=== PATIENT | female | born 1965 | race American Indian/Alaskan Native ===

== ENCOUNTER → 2024-11-30 | Outpatient (CLI) | payer BC, SELFPAY ==
[2024-11-30 14:14] LABS: Basophils # (Auto) 0.1 Thou/mm3 (0.0-0.2); Basophils % (Auto) 0 % (0-2.5); Eosinophils % (Auto) 0 % (0-10); Hematocrit 33.3 % (36.0-46.0); Hemoglobin 11.3 g/dL (12.0-16.0); Immature Granulocytes % (Auto) 1 % (0-0); Immature Granulocytes Auto 0.11 Thou/mm3 (0.00-0.00); Lymphocytes % (Auto) 4 % (10-50); Mean Corpuscular HGB Conc 33.9 g/dl (31.0-37.0); Mean Corpuscular Hemoglobin 29.1 pg (25.0-35.0); Mean Corpuscular Volume 86 fL (80-100); Monocytes # (Auto) 1.5 Thou/mm3 (0.0-0.8); Monocytes % (Auto) 7 % (0-12); Neutrophils # (Auto) 20.4 Thou/mm3 (1.8-7.7); Neutrophils % (Auto) 88 % (37-80); Nucleated Red Blood Cell % 0 /100 WBC (0); Platelet Count 458 Thou/mm3 (140-440); RDW Standard Deviation 41.7 fL (36.4-46.3); Red Blood Count 3.88 Miln/mm3 (4.00-5.20); White Blood Count 23.1 Thou/mm3 (3.6-11.0)
[2024-11-30 14:51] LABS: Alanine Aminotransferase < 7 U/L (10-49); Albumin/Globulin Ratio 1.6 (1.2-2.2); Alkaline Phosphatase 106 U/L (46-116); Anion Gap 11 (7-16); Aspartate Amino Transferase 14 U/L (0-34); BUN/Creatinine Ratio 11 Ratio (12-20); Bilirubin,Total 0.7 mg/dL (0.3-1.2); Blood Urea Nitrogen 9 mg/dL (9-23); C-Reactive Protein 23.8 mg/dL (0.0-0.9); Calcium 8.9 mg/dL (8.3-10.6); Calcium (Corrected) 8.9 mg/dL (8.5-10.1); Carbon Dioxide 26.5 mMol/L (20.0-31.0); Chloride 93 mMol/L (98-107); Creatinine (Component) 0.8 mg/dL (0.6-1.3); Globulin 2.5 gm/dL (2.3-3.5); Glucose 156 mg/dL (74-106); Osmolality,Calculated 262 (275-295); Potassium 3.3 mMol/L (3.4-5.1); Sodium 130 mMol/L (136-145); Total Protein 6.5 gm/dL (5.7-8.2); eGFR > 60 See Note
== END | disposition home or self-care (01) ==
LOC: COPL 12:58
PROVIDERS: PCP Physician Assistant; Referring Provider Specialist; Visit Provider Specialist
DX: K80.80 Other cholelithiasis without obstruction (principal)
CPT/HCPCS: 36415; 80053; 85025; 86140

== ENCOUNTER → 2024-12-11 | Outpatient (CLI) | payer BC, SELFPAY ==
[2024-12-12 18:22] LABS: Clostridium Difficile PCR Negative (Negative)
== END | disposition home or self-care (01) ==
LOC: COPL 14:03
PROVIDERS: PCP Nurse Practitioner Family; Referring Provider Specialist; Visit Provider Specialist
DX: R19.7 Diarrhea, unspecified (principal)
CPT/HCPCS: 87015; 87045; 87046; 87493; 87899

== ENCOUNTER → 2024-12-12 | Outpatient (CLI) | payer BC, SELFPAY | END | disposition home or self-care (01) | LOC: SLDO 10:09 | PROVIDERS: Referring Provider Specialist; Visit Provider Specialist | DX: R19.7 Diarrhea, unspecified (principal) ==

== ENCOUNTER 2024-12-17 10:32 | Inpatient (IN) | payer BC, SELFPAY ==
[2024-12-17] VITALS (9 sets, daily range): BP systolic 99–119; BP diastolic 66–74; PULSE 77–130; RESP 18–99; TEMP 35.8–36.7; O2SAT 93–99; BMI 23.0; BMI 22.8
--- NOTE | 2024-12-17 11:29 | XR_ITS ---
Examination: CT abdomen with intravenous contrast CT pelvis with intravenous contrast 2-D coronal reconstructions 2-D sagittal reconstructions Date and time of exam:December 17, 2024 1320 hrs. Comparison June 10, 2023 Indications: Sudden onset right-sided abdominal pain beginning last night, diagnosis cholelithiasis, enlarged common hepatic common bile duct, right hydronephrosis 2.6 mm distal right ureterovesical junction calculus on CT abdomen pelvis study June 10, 2023. CTDI: vol (mGy) 7.16 DLP: (mGycm) 334 Technique: Multiple axial sections of the abdomen and pelvis have been obtained. 64 slice high-resolution scanner used. 3 mm axial sections have been obtained, post intravenous injection 60 cc [id number] 2-D sagittal, coronal reconstructions obtained. Low dose protocols were performed. One or more of the following dose reduction techniques were used; automated exposure control, adjustment of the mA and/or KV according to patient size, use of iterative reconstruction technique. Findings: Again noted 10 mm pulmonary nodule lingular segment, atelectasis also in the left lower lobe Pericardial effusion measuring 7 mm Cholelithiasis contracted gallbladder Intrahepatic biliary tract dilatation Common hepatic duct 8 mm No pancreatic mass Minimal nodular thickening left adrenal gland 4 mm lower pole right renal calculus, no hydronephrosis or ureteral calculi Normal appendix Significant colonic ileus with diffuse wall thickening of the colon Retroverted uterus with 18 mm uterine fundal mass Urinary bladder intact Advanced degenerative disc disease L5-S1 with 2 mm central lumbar disc bulge Impression: 10 mm pulmonary nodule lingular segment, recommend PA lateral chest follow-up Cholelithiasis, contracted gallbladder Intrahepatic and extrahepatic biliary tract dilatation Consider MRCP follow-up to exclude common bile duct stones and/or stricture Significant colonic ileus with diffuse thickening of the colonic sainz, colitis pattern Recommend pelvic sonography to assess uterine fundal mass
--- NOTE | 2024-12-17 11:30 | PD.EDRME ---
Rapid Medical Screening Exam RME Arrival date/time: 12/17/24 10:32 59-year-old female with ulcerative colitis presents emergency department today with complaints of right lower abdominal pain patient reports she is being followed by Dr. Gamboa GI specialist Chief Complaint: Abdominal Pain Time Seen by Provider: 12/17/24 10:53 Vital signs: Vital Signs Temperature 98.0 F 12/17/24 11:25 Pulse Rate 130 H 12/17/24 11:25 Respiratory Rate 18 12/17/24 11:25 Blood Pressure 99/69 12/17/24 11:25 Pulse Oximetry (%) 97 12/17/24 11:25 Oxygen Delivery Method Room Air 12/17/24 11:25
--- NOTE | 2024-12-17 11:38 | EKG_ITS ---
[facility] Test Date: 2024-12-17 Pat Name: DARIO TOPETE Department: Room: - Gender: Female Lever Operator: : 1965 Requested By: Murtaza Gates (DAVID) Order Number: [id number] Reading MD: Murtaza Gates (PILL PACKER) Measurements Intervals [place] Rate: 101 P: 75 NJ: 149 QRS: -2 QRSD: 101 T: 79 QT: 347 QTc: 451 Interpretive Statements SINUS TACHYCARDIA INCOMPLETE RIGHT BUNDLE BRANCH BLOCK [90+ ms QRS DURATION, TERMINAL R IN V1/V2, 40+ ms S IN I/aVL/V4/V5/V6] NONSPECIFIC T-WAVE ABNORMALITY ABNORMAL RHYTHM ECG Compared to ECG 05/26/2023 15:49:28 Incomplete right bundle-branch block now present T-wave abnormality now present /store/S0/[id number]/ecg/[id number].pdf
[2024-12-17 12:04] LABS: Lactate (Lactic Acid) 1.3 mMol/L (0.4-2.0)
[2024-12-17 12:21] LABS: Basophils % (Auto) 0 % (0-2.5); Eosinophils % (Auto) 0 % (0-10); Hematocrit 29.4 % (36.0-46.0); Hemoglobin 9.6 g/dL (12.0-16.0); Immature Granulocytes % (Auto) 2 % (0-0); Immature Granulocytes Auto 0.31 Thou/mm3 (0.00-0.00); Lymphocytes % (Auto) 6 % (10-50); Mean Corpuscular HGB Conc 32.7 g/dl (31.0-37.0); Mean Corpuscular Hemoglobin 27.8 pg (25.0-35.0); Mean Corpuscular Volume 85 fL (80-100); Monocytes # (Auto) 0.6 Thou/mm3 (0.0-0.8); Monocytes % (Auto) 4 % (0-12); Neutrophils # (Auto) 14.2 Thou/mm3 (1.8-7.7); Neutrophils % (Auto) 88 % (37-80); Nucleated Red Blood Cell % 0 /100 WBC (0); Platelet Count 626 Thou/mm3 (140-440); RDW Standard Deviation 43.5 fL (36.4-46.3); Red Blood Count 3.45 Miln/mm3 (4.00-5.20); White Blood Count 16.1 Thou/mm3 (3.6-11.0)
[2024-12-17 12:34] LABS: Alanine Aminotransferase 19 U/L (10-49); Albumin, Serum 3.8 gm/dL (3.4-4.8); Albumin/Globulin Ratio 1.3 (1.2-2.2); Alkaline Phosphatase 115 U/L (46-116); Anion Gap 9 (7-16); Aspartate Amino Transferase 13 U/L (0-34); BUN/Creatinine Ratio 30 Ratio (12-20); Bilirubin,Total 0.6 mg/dL (0.3-1.2); Blood Urea Nitrogen 12 mg/dL (9-23); Calcium 9.4 mg/dL (8.3-10.6); Calcium (Corrected) 9.6 mg/dL (8.5-10.1); Carbon Dioxide 30.1 mMol/L (20.0-31.0); Chloride 85 mMol/L (98-107); Creatinine (Component) 0.4 mg/dL (0.6-1.3); Estimated Creatinine Clearance 116.8 mL/min (>60); Glucose 121 mg/dL (74-106); Lipase 21 U/L (12-53); Osmolality,Calculated 250 (275-295); Procalcitonin 0.38 ng/ml (0.0-0.49); Sodium 124 mMol/L (136-145); Total Protein 6.8 gm/dL (5.7-8.2); eGFR > 60 See Note
--- NOTE | 2024-12-17 12:36 | EDNOTE_ITS ---
ED General RME/HPI General Chief complaint: Abdominal Pain Stated complaint: RIGHT SIDED ABDOMINAL PAIN Time Seen by Provider: 12/17/24 10:53 Arrival date/time: 12/17/24 10:32 CC: Right lower quadrant abdominal pain HPI onset at 10 PM last night with recurrent diarrhea that been ongoing for months. Patient is seen for colitis by Dr. Gamboa last visit was on 14 December. Patient states she has been considerably tender in the right lower quadrant but no other complaints including nausea or vomiting chest pain shortness of breath or fever. RME / HPI RME / HPI narrative: 12/17/24 10:32 59-year-old female with ulcerative colitis presents emergency department today with complaints of right lower abdominal pain patient reports she is being followed by Dr. Gamboa GI specialist Related Data Home Medications ?Medication ?Instructions ?Recorded ?Confirmed ursodiol 250 mg tablet 250 mg PO TID ##90 02/17/17 05/26/23 Previous Rx's ?Medication ?Instructions ?Recorded azathioprine 50 mg tablet (Imuran) 50 mg PO BID #30 tabs 06/07/23 fluconazole 200 mg tablet 400 mg (2 x 200 mg) PO QDAY [place] 06/07/23 Fever #90 tabs folic acid 1 mg tablet 1 mg PO QDAY #90 tabs 06/07/23 mesalamine 500 mg capsule,extended 1,000 mg (2 x 500 mg) PO QID [facility] 06/07/23 release #30 caps prednisone 5 mg tablet 15 mg PO BID #90 tabs 06/07/23 Allergies Allergy/AdvReac Type Severity Reaction Status Date / Time ciprofloxacin [From Cipro] Allergy Intermediate Gastrointestinal Verified 12/17/24 10:35 Upset levofloxacin Allergy Intermediate Rash Verified 12/17/24 10:35 ibuprofen AdvReac Intermediate Gastrointestinal Verified 12/17/24 10:35 Upset Review of Systems Review of Systems Narrative Review of Systems: GEN: No fever, no chills, no weight loss EYES: No discharge, no visual changes, no pain HEENT: No ear pain, no congestion, no sore throat PULM: No shortness of breath, no cough, no congestion CV: No chest pain, no dyspnea on exertion, no palpitations GI: No nausea, no vomiting, no diarrhea, + pain, no constipation : No frequency, no urgency, no dysuria MUSC/SKEL: No joint pain, no back pain SKIN: No rash PSYCH: No hallucinations, no depression HEME/LYMPH: No easy bleeding or bruising tendencies NEURO: No weakness, no headache Past Medical History Past Medical History NEUROLOGIC: Negative Neurological Disorders or Seizures CARDIAC: Negative Cardiac Disorders, Hypercholesterolemia, Congestive Heart Failure or Hypertension RESPIRATORY: Negative Chronic Obstructive Pulmonary Disease (COPD), Asthma or Sleep Apnea GASTROINTESTINAL: Positive Gastrointestinal Disorders (proctitis) and Colitis; Negative Hepatitis GENITOURINARY: Positive Kidney Stones; Negative Genitourinary Disorders or Renal Disease MUSCULOSKELETAL: Positive Musculoskeletal Disorders (bulging disc) ENDOCRINE: Negative Endocrine Disorders, Diabetes Mellitus Type 1 or Diabetes Mellitus Type 2 HEMATOLOGIC: Negative Blood Disorders or Sickle Cell Disease OTHER HISTORY: Positive Chicken Pox; Negative Hospitalization, Autoimmune Disease, Down Syndrome, Developmental Delay, Shingles, Falls, Blood Transfusions, Anesthesia Reactions, MRSA, VRSA, Vancomycin-Resistant Enterococci, Human Immunodeficiency Virus (HIV), Measles, Mumps, Rubella (Portuguese Measles), Pertussis, Clostridium Difficile or Cancer Family History FAMILY HISTORY: Negative Family Psychiatric Problems, Family Respiratory Disorders, Family Cardiac Disorders, Family Gastrointestinal Problems, Family Cancer, Family Surgery or Family Anesthesia Reaction Surgical History SURGICAL: Negative Cardiac Surgery, Endocrine Surgery, Abdominal Surgery, Nephrectomy, Joint Replacement, Mastectomy or Lumpectomy Social History SMOKING STATUS: Former smoker ED Exam Narrative Physical exam: [General: In mild discomfort but not in any acute distress Head normocephalic HEENT: Within acceptable limits Neck is supple nontender Chest equal chest rise nontender to palpation Respiratory: Clear to auscultation no wheezes crackles or rubs CV: Rate rhythm is regular no murmurs rubs or clicks Abdomen is distended, exquisite tenderness to palpation in the right lower quadrant, the patient is in a position of comfort with the right knee flexed. Pain is elicited with extension of the right knee. No left lower quadrant or upper quadrant or epigastric pain with palpation. Back: No CVA tenderness no spinous process tenderness from cervical spine thoracic and lumbar spine Skin: Intact no petechiae rash induration ulceration or crepitus Extremities: Moving all extremity against resistance cap refill less than 2 seconds neurosensory intact Neuro: Awake alert oriented x3 Glascow coma 15 no focal deficits] Course Course Course Narrative: Patient's case discussed with Dr. Gamboa who will consult on the patient for admission for intractable right lower quadrant abdominal pain patient is to be on Solu-Medrol clear liquid diet and Immurine and mesalamine. Patient's case discussed with Dr. solano and resident who agreed except the patient for admission Dr. Gamboa to consult. Quality Measures none Orders Category Date Time Status CT Screening NOW Care 12/17/24 11:29 Completed EKG (ED ONLY) *Do not use* NOW Care 12/17/24 11:38 Completed Insert IV NOW Care 12/17/24 11:29 Active Consult to Gastroenterology Stat Cons 12/17/24 14:[address] abdomen pelvis w con Stat Exams 12/17/24 11:29 Completed EKG (ED Only) Stat Exams 12/17/24 11:38 Draft Blood Culture (Lab) Stat Lab 12/17/24 11:49 Received CBC Stat Lab 12/17/24 11:49 Completed Comprehensive Metabolic Panel Stat Lab 12/17/24 11:49 Completed Lactic Acid [Lactate (Lactic Acid)] Stat Lab 12/17/24 11:49 Completed Lipase Stat Lab 12/17/24 11:49 Completed Procalcitonin Stat Lab 12/17/24 11:49 Completed Sed Rate (ESR) Stat Lab 12/17/24 11:49 Completed UA, C/S IF [Urinalysis, C/S if Indicated] Stat Lab 12/17/24 13:59 Completed Dicyclomine Inj [Bentyl Inj] Med 12/17/24 14:03 Discontinued 10 mg IM X1 ONE Metoclopramide Inj [Reglan Inj] Med 12/17/24 11:29 Discontinued 10 mg IVP X1 ONE Morphine Inj Med 12/17/24 12:39 Discontinued 4 mg IVP X1 ONE POTASSIUM CHL 10 mEq IVPB [Kcl Ivpb] Med 12/17/24 15:00 Discontinued 10 meq in 100 ml IV Q1H Sodium Chloride 0.9% 1000 ml [Ns] 1,000 ml Med 12/17/24 11:29 Discontinued IV 999 mls/hr Vital Signs Vital signs: Vital Signs Temperature 98.0 F 12/17/24 11:25 Pulse Rate 130 H 12/17/24 11:25 Respiratory Rate 18 12/17/24 11:25 Blood Pressure 99/69 12/17/24 11:25 Pulse Oximetry (%) 97 12/17/24 11:25 Oxygen Delivery Method Room Air 12/17/24 11:[address] [facility] Patient data External records reviewed:: [facility] previous records Clinical information provided by:: patient Social determinants that could affect healthcare access:: none Patient has the following chronic illnesses:: Colitis How is presenting disease/condition affected by chronic disease/condition?: e xacerbated by Evaluation data The following diagnostics were reviewed and interpreted by me:: lab results and radiology exam(s) Lab and/or radiology exams considered but not ordered:: CBC shows a leukocytosis of 16.1 and H&H of 9.6 and 29.4 with platelets at 626, room reviewed per primary labs she is dropped 2 g in her hematocrit from last blood draw CMP shows sodium 124 potassium 3.0 chloride of 85 CO2 of 30.1 BUN of 12 creatinine 0.4 with a glucose of 121. Lactic 1.3 Pro-Marcelino was 0.38. Interpretation Summary: Colitis Medications Medications considered but not ordered:: None Medication administrations:: Medication Administration History Acetaminophen (Acetaminophen 325 Mg Tablet) 650 mg PO Q6H PRN PRN Reason: Fever >100.3 or pain Stop: 01/16/25 15:26 Acetaminophen (Acetaminophen 325 Mg Tablet) 650 mg PO Q6H PRN PRN Reason: PAIN SCALE 1-3 (mild Stop: 01/16/25 15:26 Hydrocodone Bitart/Acetaminophen (Hydrocodone/Apap 5/325 Tablet) 1 tab PO Q4HR PRN PRN Reason: PAIN SCALE 4-6 (Moderate Stop: 12/22/24 15:26 Last Admin: 12/17/24 20:53 Dose: 1 tab Documented By: Admin: 12/17/24 16:11 Dose: 1 tab Documented By: CRISTOBAL Azathioprine (Azathioprine 50 Mg Tablet) 50 mg PO BID [facility] Stop: 01/16/25 20:59 Last Admin: 12/17/24 20:34 Dose: 50 mg Documented By: DIANE Sodium Chloride (Ns) 1,000 mls @ 120 mls/hr IV .Q8H20M [place] Stop: 12/18/24 15:29 Last Admin: 12/17/24 16:10 Dose: 120 mls/hr Documented By: CRISTOBAL Mesalamine (Mesalamine 250 Mg Capsule.Er) 1,000 mg PO QID [place] Stop: 01/16/25 16:59 Last Admin: 12/17/24 20:35 Dose: 1,000 mg Documented By: Admin: 12/17/24 18:06 Dose: 1,000 mg Documented By: CRISTOBAL Morphine Sulfate (Morphine Sulf Inj 10 Mg/Ml Vial) 2 mg IVP Q4H PRN PRN Reason: PAIN SCALE 7-10 (Severe Stop: 12/22/24 15:26 Ondansetron HCl (Ondansetron Inj 2 Mg/Ml Inj 2 Ml) 4 mg IV Q6H PRN; Protocol PRN Reason: NAUSEA OR VOMITING Stop: 01/16/25 15:26 Pantoprazole Sodium (Pantoprazole Inj 40 Mg Vial) 40 mg IVP QDAY [place] Stop: 01/16/25 15:29 Last Admin: 12/17/24 15:58 Dose: 40 mg Documented By: CRISTOBAL Sennosides (Senna Tablet) 1 tab PO QDAY PRN; Protocol PRN Reason: constipation Stop: 01/16/25 15:26 Discontinued Medications Dicyclomine HCl (Dicyclomine Inj 10 Mg/Ml 2ml Amp) 10 mg IM X1 ONE Stop: 12/17/24 14:04 Last Admin: 12/17/24 14:25 Dose: 10 mg Documented By: CRISTOBAL Sodium Chloride (Ns) 1,000 mls @ 999 mls/hr IV .Q1H1M ONE Stop: 12/17/24 12:29 Last Infusion: 12/17/24 16:15 Dose: Infused Documented By: Admin: 12/17/24 13:14 Dose: 999 mls/hr Documented By: CRISTOBAL Potassium Chloride (Kcl Ivpb) 10 meq in 100 mls @ 100 mls/hr IV Q1H [place] Stop: 12/17/24 18:59 Last Admin: 12/17/24 20:39 Dose: 100 mls/hr Documented By: Infusion: 12/17/24 20:18 Dose: Infused Documented By: Admin: 12/17/24 19:18 Dose: 100 mls/hr Documented By: Infusion: 12/17/24 19:08 Dose: Infused Documented By: Admin: 12/17/24 18:08 Dose: 100 mls/hr Documented By: Infusion: 12/17/24 17:31 Dose: Infused Documented By: Admin: 12/17/24 16:11 Dose: 100 mls/hr Documented By: CRISTOBAL Magnesium Sulfate (Magnesium Sulfate Ivpb) 2 gm in 50 mls @ 25 mls/hr IV X1 ONE Stop: 12/17/24 20:37 Last Admin: 12/17/24 19:17 Dose: 25 mls/hr Documented By: TC Methylprednisolone Sodium Succinate (Methylprednisolone Sod Succ 40 Mg Vial) 40 mg IVP Q12H ONE Stop: 12/17/24 15:33 Last Admin: 12/17/24 15:54 Dose: 40 mg Documented By: VG Metoclopramide HCl (Metoclopramide Inj 5 Mg/Ml Vial 2 Ml) 10 mg IVP X1 ONE; Protocol Stop: 12/17/24 11:30 Last Admin: 12/17/24 13:15 Dose: 10 mg Documented By: VG Morphine Sulfate (Morphine Sulf Inj 10 Mg/Ml Vial) 4 mg IVP X1 ONE Stop: 12/17/24 12:40 Last Admin: 12/17/24 13:18 Dose: 4 mg Documented By: VG Potassium Chloride (Potassium Chloride 10% 20 Meq/15 Ml Udc) 20 meq PO X1 ONE Stop: 12/17/24 15:37 Last Admin: 12/17/24 16:11 Dose: 20 meq Documented By: VG None Consultations Consultation(s) initiated? (list below): Yes Diagnosis Differential Diagnosis ED Complaint MDM: Colitis ileus obstruction Most likely diagnosis given after review of the tests above:: Colitis Admission Indicated Admission indicated?: indicated Explain why admission is indicated or not indicated:: Further medical management Admission Request Was there a request for admission?: No Disposition Plan Disposition Plan: Admit Medical Decision Making Differential Diagnosis Differential Diagnosis: Colitis ileus obstruction Lab Data 12/17/24 11:49 12/17/24 19:43 Labs: Lab Results 12/17/24 12/17/24 12/17/24 Range/Units 10:10 11:49 13:59 WBC 16.1 H (3.6-11.0) Thou/mm3 RBC 3.45 L (4.00-5.20) Miln/mm3 Hgb 9.6 L (12.0-16.0) g/dL Hct 29.4 L (36.0-46.0) % MCV 85 (80-100) fL MCH 27.8 (25.0-35.0) pg MCHC 32.7 (31.0-37.0) g/dl RDW Std Deviation 43.5 (36.4-46.3) fL Plt Count 626 H D (140-440) Thou/mm3 Neut % (Auto) 88 H (37-80) % Lymph % (Auto) 6 L (10-50) % [place] % (Auto) 4 (0-12) % Eos % (Auto) 0 (0-10) % Baso % (Auto) 0 (0-2.5) % Neut # (Auto) 14.2 H (1.8-7.7) Thou/mm3 Lymph # (Auto) 1.0 (1.0-4.8) Thou/mm3 [place]at # (Auto) 0.6 (0.0-0.8) Thou/mm3 Eos # (Auto) 0.0 (0.0-0.5) Thou/mm3 Baso # (Auto) 0.0 (0.0-0.2) Thou/mm3 Immature Gran # (Auto) 0.31 H (0.00-0.00) Thou/mm3 Absolute Nucleated RBC 0.00 (0.00-0.00) Thou/mm3 Immature Gran % 2 H (0-0) % Nucleated RBC % 0 (0) /100 WBC ESR 68 H (0-30) mm/hr Sodium 130 L 124 L (136-145) mMol/L Potassium 3.0 L (3.4-5.1) mMol/L Chloride 85 L (98-107) mMol/L Carbon Dioxide 30.1 (20.0-31.0) mMol/L Anion Gap 9 (7-16) BUN 12 (9-23) mg/dL Creatinine 0.4 L (0.6-1.3) mg/dL Estim Creat Clear Calc 116.8 (>60) mL/min eGFR > 60 (60 - ) See Note BUN/Creatinine Ratio 30 H (12-20) Ratio Glucose 121 H (74-106) mg/dL Calculated Osmolality 250 L (275-295) Lactic Acid 1.3 (0.4-2.0) mMol/L Calcium 9.4 (8.3-10.6) mg/dL Corrected Calcium 9.6 (8.5-10.1) mg/dL Magnesium 1.9 (1.6-2.6) mg/dL Total Bilirubin 0.6 (0.3-1.2) mg/dL AST 13 (0-34) U/L ALT 19 (10-49) U/L Alkaline Phosphatase 115 (46-116) U/L Total Protein 6.8 (5.7-8.2) gm/dL Albumin 3.8 (3.4-4.8) gm/dL Globulin 3.0 (2.3-3.5) gm/dL Albumin/Globulin Ratio 1.3 (1.2-2.2) Lipase 21 (12-53) U/L Procalcitonin 0.38 (0.0-0.49) ng/ml Ur Collection Type Clean Catch Urine Color Lt-Yellow (Lt Yel-Yel) Urine Clarity Clear (Clear/Hazy) Urine pH 7.0 (5.0-7.0) Ur Specific [place] 1.027 (1.001-1.035) Urine Protein Negative (Neg - Trace) Urine Glucose (UA) Negative (Negative) Urine Ketones 1+ A (Negative) Urine Blood Negative (Negative) Urine Nitrite Negative (Negative) Urine Bilirubin Negative (Negative) Urine Urobilinogen (Auto) Negative (0.0-1.0) mg/dL Ur Leukocyte Esterase Negative (Negative) Urine RBC 1 (0-3) /hpf Urine WBC < 1 (0-5) /hpf Ur Squamous Epith Cells 0 (0-5) /hpf Urine Bacteria None (None) Ur Culture Indicated? Not Indicated Blood Type O Positive Antibody Screen NEGATIVE Blood Bank Wristband ID Yes Discharge Plan Plan Patient Disposition: Admit Acute Care w/in Hospital Patient condition on transfer: Stable Problem List Clinical Impression: Abdominal pain, right lower quadrant, Ileus, Hyponatremia, Hypokalemia PA/HEAD OF HISTORY Supervising Physician PA/HEAD OF HISTORY Supervising Physician: Justo Morris ENP
[2024-12-17] MEDS: SODIUM CHLORIDE 0.9% 1000 ML 1,000 ML 999 ML IV (13:14)
[2024-12-17] MEDS: METOCLOPRAMIDE INJ 5 MG/ML VIAL 2 ML 10 MG IVP (13:15)
[2024-12-17] MEDS: MORPHINE SULF INJ 10 MG/ML VIAL 4 MG IVP (13:18)
[2024-12-17 14:04] LABS: Collection Type, Urine Clean Catch; Squamous Epithelial Cell,Urine 0 /hpf (0-5)
[2024-12-17 14:14] LABS: Bilirubin,Urine Negative (Negative); Blood,Urine Negative (Negative); Clarity,Urine Clear (Clear/Hazy); Color,Urine Lt-Yellow (Lt Yel-Yel); Culture Indicated,Urine Not Indicated; Glucose, Urine Negative (Negative); Ketones,Urine 1+ (Negative); Leukocyte Esterase,Urine Negative (Negative); Nitrite,Urine Negative (Negative); Protein,Urine Negative (Neg - Trace); RBC,Urine 1 /hpf (0-3); Specific Gravity,Urine 1.027 (1.001-1.035); Urobilinogen,Urine Negative mg/dL (0.0-1.0); WBC,Urine < 1 /hpf (0-5)
[2024-12-17] MEDS: DICYCLOMINE INJ 10 MG/ML 2ML AMP IM (14:25)
--- NOTE | 2024-12-17 15:37 | ESHP_ITS ---
Documentation for date of: 12/17/24 HPI History of Present Illness Chief complaint: Right lower quadrant pain, diarrhea History of present illness: This patient is a 59-year-old female with past medical history of IBD/ulcerative colitis on mesalamine and steroid therapy presented to the ED on 12/17/2024 with chief complaint of right lower quadrant intractable pain and diarrhea from last 1 day. She reported that she stopped taking her IBD therapy for at least 5 months and restarted her medications on November 30, [address] Gamboa as outpatient and possible reason for her discontinuation was that she felt that she is getting better and she should stop her medications. She reported that her pain is worse today. A week ago she noticed on bloody diarrhea and denied any blood in the stool today however reported to had 4 episodes of watery stools. She was complaining of excruciating pain on examination. She was not feeling nauseous however reported to have vomiting a few days ago. Patient reported to had appetite loss from a week and reported to have decreased p.o. intake including water intake. Denied any chest pain, fever/chills, shortness of breath, burning/dysuria. Her sister was present at the bedside and concerns were addressed. In the ED, patient was hypotensive tachycardic breathing normally and afebrile. She was saturating well on room air. Labs were significant for leukocytosis, normocytic anemia, thrombocytosis. CHEM panel was significant for hypoosmolar hyponatremia sodium 124, hypokalemia 3.0 and hypochloremia 85. Kidney functions were stable BUN 12 and creatinine 0.4. Blood glucose 121. Lactic acid was unremarkable. Lipase was negative. Procalcitonin negative. UA showed mild ketones. Imaging: CT abdomen pelvis was significant for a 10 mm pulmonary nodule lingular segment atelectasis in the left lobe pericardial effusion 7 mm cholelithiasis contracted gallbladder intrahepatic biliary tract dilation common hepatic duct 8 mm nodular thickening left adrenal gland 4 mm lower pole right renal calculus significant colonic ileus with diffuse wall thickening of the colon advanced degenerative disc disease L5-S1. EKG showed sinus tachycardia with QTc 451. Patient is admitted for further workup and management of flare of ulcerative colitis and hyponatremia. Review of Systems Review of Systems Systems Reviewed: All systems reviewed, normal except as documented Past Medical History Past Medical History NEUROLOGIC: Negative Neurological Disorders or Seizures CARDIAC: Negative Cardiac Disorders, Hypercholesterolemia, Congestive Heart Failure or Hypertension RESPIRATORY: Negative Chronic Obstructive Pulmonary Disease (COPD), Asthma or Sleep Apnea GASTROINTESTINAL: Positive Gastrointestinal Disorders (proctitis) and Colitis; Negative Hepatitis GENITOURINARY: Positive Kidney Stones; Negative Genitourinary Disorders or Renal Disease MUSCULOSKELETAL: Positive Musculoskeletal Disorders (bulging disc) ENDOCRINE: Negative Endocrine Disorders, Diabetes Mellitus Type 1 or Diabetes Mellitus Type 2 HEMATOLOGIC: Negative Blood Disorders or Sickle Cell Disease OTHER HISTORY: Positive Chicken Pox; Negative Hospitalization, Autoimmune Disease, Down Syndrome, Developmental Delay, Shingles, Falls, Blood Transfusions, Anesthesia Reactions, MRSA, VRSA, Vancomycin-Resistant Enterococci, Human Immunodeficiency Virus (HIV), Measles, Mumps, Rubella (Irish Measles), Pertussis, Clostridium Difficile or Cancer Family History FAMILY HISTORY: Negative Family Psychiatric Problems, Family Respiratory Disorders, Family Cardiac Disorders, Family Gastrointestinal Problems, Family Cancer, Family Surgery or Family Anesthesia Reaction Surgical History SURGICAL: Negative Cardiac Surgery, Endocrine Surgery, Abdominal Surgery, Nephrectomy, Joint Replacement, Mastectomy or Lumpectomy Social History SMOKING STATUS: Former smoker Exam Vital Signs Temp Pulse Resp BP Pulse Ox O2 Del Method 98.1 F 110 H 18 119/74 99 Room Air 12/17/24 14:45 12/17/24 14:45 12/17/24 14:45 12/17/24 14:45 12/17/24 14:45 12/17/24 14:45 Narrative Exam Gen: AAOx3, lean female in mild distress due to abdominal pain. Saturating well on room air. HEENT: NCAT, MATT, EOMI, dry mucous membrane, no JVD CVS: Normal S1, S2. Sinus tachycardia with regular rhythm. No MRG Resp: CTAB, moving air well. No crackles or wheezes are heard. Abd: Soft, right lower quadrant tenderness without distention. Active bowel sounds. 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 No focal deficits noted. Psych: Appropriate mood and affect Results: Labs 12/17/24 11:49 12/17/24 11:49 Labs: Short CBC 12/17/24 Range/Units 11:49 WBC 16.1 H (3.6-11.0) Thou/mm3 Hgb 9.6 L (12.0-16.0) g/dL Hct 29.4 L (36.0-46.0) % Plt Count 626 H D (140-440) Thou/mm3 BMP 12/17/24 11:49 Sodium 124 L Potassium 3.0 L Chloride 85 L Carbon Dioxide 30.1 BUN 12 Creatinine 0.4 L Glucose 121 H Calcium 9.4 Liver Function 12/17/24 Range/Units 11:49 Total Bilirubin 0.6 (0.3-1.2) mg/dL AST 13 (0-34) U/L ALT 19 (10-49) U/L Alkaline Phosphatase 115 (46-116) U/L Albumin 3.8 (3.4-4.8) gm/dL Urine 12/17/24 Range/Units 13:59 Urine Color Lt-Yellow (Lt Yel-Yel) Urine Clarity Clear (Clear/Hazy) Urine pH 7.0 (5.0-7.0) Ur Specific [place] 1.027 (1.001-1.035) Urine Protein Negative (Neg - Trace) Urine Glucose (UA) Negative (Negative) Quality Measures Quality Measures VTE prophylaxis (SCDs) Medications Home Medications and Allergies Home Medications ?Medication ?Instructions ?Recorded ?Confirmed ?Type ursodiol 250 mg tablet 250 mg PO TID ##90 02/17/17 05/26/23 History Allergies Allergy/AdvReac Type Severity Reaction Status Date / Time ciprofloxacin [From Cipro] Allergy Intermediate Gastrointestinal Verified 12/17/24 10:35 Upset levofloxacin Allergy Intermediate Rash Verified 12/17/24 10:35 ibuprofen AdvReac Intermediate Gastrointestinal Verified 12/17/24 10:35 Upset Visit Medications Acetaminophen (Acetaminophen 325 Mg Tablet) 650 mg PO Q6H PRN PRN Reason: Fever >100.3 or pain Stop: 01/16/25 15:26 Acetaminophen (Acetaminophen 325 Mg Tablet) 650 mg PO Q6H PRN PRN Reason: PAIN SCALE 1-3 (mild Stop: 01/16/25 15:26 Hydrocodone Bitart/Acetaminophen (Hydrocodone/Apap 5/325 Tablet) 1 tab PO Q4HR PRN PRN Reason: PAIN SCALE 4-6 (Moderate Stop: 12/22/24 15:26 Azathioprine (Azathioprine 50 Mg Tablet) 50 mg PO BID [place] Stop: 01/16/25 20:59 Potassium Chloride (Kcl Ivpb) 10 meq in 100 mls @ 100 mls/hr IV Q1H [place] Stop: 12/17/24 18:59 Sodium Chloride (Ns) 1,000 mls @ 120 mls/hr IV .Q8H20M [facility], [facility]1983 Stop: 12/18/24 15:29 Mesalamine (Mesalamine 250 Mg Capsule.Er) 1,000 mg PO QID [facility], [facility]1983 Stop: 01/16/25 16:59 Morphine Sulfate (Morphine Sulf Inj 10 Mg/Ml Vial) 2 mg IVP Q4H PRN PRN Reason: PAIN SCALE 7-10 (Severe Stop: 12/22/24 15:26 Ondansetron HCl (Ondansetron Inj 2 Mg/Ml Inj 2 Ml) 4 mg IV Q6H PRN; Protocol PRN Reason: NAUSEA OR VOMITING Stop: 01/16/25 15:26 Pantoprazole Sodium (Pantoprazole Inj 40 Mg Vial) 40 mg IVP QDAY [facility] Stop: 01/16/25 15:29 Potassium Chloride (Potassium Chloride 10% 20 Meq/15 Ml Udc) 20 meq PO X1 ONE Stop: 12/17/24 15:37 Sennosides (Senna Tablet) 1 tab PO QDAY PRN; Protocol PRN Reason: constipation Stop: 01/16/25 15:26 Discontinued Medications Dicyclomine HCl (Dicyclomine Inj 10 Mg/Ml 2ml Amp) 10 mg IM X1 ONE Stop: 12/17/24 14:04 Last Admin: 12/17/24 14:25 Dose: 10 mg Sodium Chloride (Ns) 1,000 mls @ 999 mls/hr IV .Q1H1M ONE Stop: 12/17/24 12:29 Last Admin: 12/17/24 13:14 Dose: 999 mls/hr Methylprednisolone Sodium Succinate (Methylprednisolone Sod Succ 40 Mg Vial) 40 mg IVP Q12H ONE Stop: 12/17/24 15:33 Metoclopramide HCl (Metoclopramide Inj 5 Mg/Ml Vial 2 Ml) 10 mg IVP X1 ONE; Protocol Stop: 12/17/24 11:30 Last Admin: 12/17/24 13:15 Dose: 10 mg Morphine Sulfate (Morphine Sulf Inj 10 Mg/Ml Vial) 4 mg IVP X1 ONE Stop: 12/17/24 12:40 Last Admin: 12/17/24 13:18 Dose: 4 mg Assessment & Plan Plan This patient is a 59-year-old female with past medical history of IBD/ulcerative colitis on mesalamine and steroid therapy presented to the ED on 12/17/2024 with chief complaint of right lower quadrant intractable pain and diarrhea from last 1 day. Patient is admitted for further workup and management of flare of ulcerative colitis and hyponatremia. #Inflammatory bowel disease #Ulcerative colitis, flare #Intractable right lower quadrant pain -Patient presented with intractable right lower quadrant pain and diarrhea from last 1 day.She reported that she stopped her IBD therapy for at least 5 months and restarted her medications on November 30, [address] Gamboa as outpatient and possible reason for her discontinuation was that she felt that she is getting better and she should stop her medications. She was not feeling nauseous however reported to have vomiting a few days ago. Patient reported to had appetite loss from a week and reported to have decreased p.o. intake including water intake. Denied any chest pain, fever/chills, shortness of breath, burning/dysuria. Colonoscopy was done in the past which confirmed IBD. -In the ED, patient was hypotensive tachycardic breathing normally and afebrile. She was saturating well on room air. -Labs were significant for leukocytosis, normocytic anemia, thrombocytosis. CHEM panel was significant for hypoosmolar hyponatremia sodium 124, hypokalemia 3.0 and hypochloremia 85. Kidney functions were stable BUN 12 and creatinine 0.4. Blood glucose 121. Lactic acid was unremarkable. Lipase was negative. Procalcitonin negative. UA showed mild ketones. Lactic acid and lipase negative. -CT abdomen pelvis was significant for a pericardial effusion 7 mm cholelithiasis contracted gallbladder intrahepatic biliary tract dilation common hepatic duct 8 mm nodular thickening left adrenal gland 4 mm lower pole right renal calculus significant colonic ileus with diffuse wall thickening of the colon advanced degenerative disc disease L5-S1. -EKG showed sinus tachycardia with QTc 451. -Patient received IV fluids 1 bolus and KCl 40 mEq IV and Zofran x 1 in the ED. Plan: -Started IV fluids at 120 cc/h -Started mesalamine 1 g 4 times daily, azathioprine 50 mg twice daily and Solu- Medrol every 12 hourly -Consulted GI appreciate recommendations -Replete electrolytes as necessary -Ordered acetaminophen, [place] and morphine for pain management -IV Zofran as needed for nausea and vomiting -GI recommended that we do not need colonoscopy at this point and will likely await on improvement in flare of ulcerative colitis #Hypoosmolar hyponatremia and hypochloremia -Likely related to decreased p.o. intake -Sodium 124, osmolarity 250 -Patient is currently AOx3. Plan: -Started IV fluids at 120 cc/h -Ordered sodium checks Q4 hourly -Patient is dehydrated and most likely will benefit from IV fluid resuscitation -Daily labs -Goal of sodium correction 4-6 mEq in first 24 hours #Electrolyte disturbance #Hypokalemia -Likely related to decreased p.o. intake -Potassium was 3.0 Plan ?IV 40 mEq KCl given x 1 in 20 mEq p.o. -Follow-up with CMP in the morning #Leukocytosis likely related to steroid intake #Normocytic anemia #Thrombocytosis -Likely related to malabsorption -WBC 16.1 and hemoglobin 9.6, platelets 626 Plan: -Daily CBC -Monitor for fever spikes -PRBC if hemoglobin drops below 7 -Ordered type and screen #Intrahepatic biliary tract dilation -Likely due to IBD versus cholelithiasis -Patient denies any right upper quadrant pain and Navarrete sign was negative. -Patient's LFTs were unremarkable -Old CT findings were consistent with intrahepatic biliary tract dilation however not worked up in the outpatient setting Plan: -GI recommended that we may need MRCP before discharge once her colon inflammation has settled #Incidental finding 10 mm pulmonary nodule lingular segment -Remote history of smoking few cigarettes every day quit many years ago. Plan: -Outpatient follow-up #Hyperglycemia -Likely due to steroids Plan: -Ordered A1c Health maintenance: Diet: Clear liquid diet GI prophylaxis: Protonix IV daily DVT prophylaxis: SCDs CODE STATUS: Full code Disposition: Patient is admitted for flare of ulcerative colitis/IBD and hyponatremia due to decreased p.o. intake. Plan of care was discussed with attending physician, Dr.Bishwakarma Dr. Avril MD, PGY 2 Attending Provider Attestation/Addendum I attest that I was physically present for the evaluation, physical examination, lab and imaging review of the patient with the residents. I discussed the case with the residents and agree with the findings and plans of care as documented above. Patient is a 59 years old female with past medical history of IBD on mesalamine and steroid therapy who presented to the ED with complain of RLQ pain and diarrhea for 1 day.? Patient had stopped taking her IV therapy for at least 5 months and recently started on November [address] Gamboa.? A week ago, she had noticed bloody diarrhea but refuses any blood in her stool currently.? Patient had worsening pain today and decided to visit the ED.? Denies any nausea, vomiting.? Also has loss of appetite.? In the ED, she was found to have leukocytosis, hypoosmolar hyponatremia, hypokalemia and hypochloremia.? CT abdomen/pelvis shows 10 mm pulmonary nodule, pericardial effusion, cholelithiasis, intrahepatic biliary tract dilation and left adrenal gland nodule.? Also shows significant colonic ileus with diffuse wall thickening.? GI was consulted by ED, recommended admission to the hospital for management of intractable pain, acute IBD flare.? We will start patient on IV hydration, IV antiemetic, mesalamine, azathioprine and steroid as recommended by GI.? We will follow-up with serial sodium level.? Discussed with GI regarding intrahepatic biliary tract dilation, recommended medical management and MRCP after her colonic inflammation goes down. Shannon Bliss MD
[2024-12-17] MEDS: PANTOPRAZOLE INJ 40 MG VIAL IVP (15:58)
[2024-12-17] MEDS: SODIUM CHLORIDE 0.9% 1000 ML 1,000 ML 120 ML IV ×2 (16:10→23:56)
[2024-12-17] MEDS: HYDROcodone/APAP 5/325 TABLET 1 TAB PO ×2 (16:11→20:53)
[2024-12-17] MEDS: POTASSIUM CHLORIDE 10% 20 MEQ/15 ML UDC PO (16:11)
[2024-12-17] MEDS: POTASSIUM CHL 10 mEq IVPB 10 MEQ/100 ML BAG 100 MEQ IV ×4 (16:11→20:39)
[2024-12-17 17:04] LABS: Magnesium 1.9 mg/dL (1.6-2.6); Sodium 130 mMol/L (136-145)
--- NOTE | 2024-12-17 18:00 | PC.NURSE ---
DINNER TRAY PROVIDED.
[2024-12-17] MEDS: MESALAMINE 250 MG CAPSULE.ER 1000 MG PO ×2 (18:06→20:35)
--- NOTE | 2024-12-17 18:30 | PC.CC ---
Pt Sophia Smith is a 59 yr old female admitted to hospitalist services for inflammatory bowel disease, ulcerative colitis flare, intractable right lower quadrant pain. ASW met with pt and her sister Yolis Gardner [phone]. Pt expressed verbal consent for ASW to proceed with encounter. Pt is noted to be alert and oriented to person, place and situation. Pt expressed understanding admission orders. Pt able to confirm demographic information. Pt is from home [address], where she lives alone. Pt identifies her sister Yolis as her primary surrogate DM. At baseline pt reports being independent with ambulation and completing her ADLs. Per pt since symptoms have present her ability has slowed. Pt reports she is not diabetic and is not on dialysis. Pt does not require supplemental O2 in the home. Pt is followed by [facility] for primary care. At time of D/c pt reports she will return home, with family providing transport. Pt expressed no further needs at this time.
[2024-12-17] MEDS: Magnesium Sulfate 2 GM Ivpb 2 GM/50 ML BAG IV (19:17)
--- NOTE | 2024-12-17 19:20 | PD.IMCONS ---
HPI Data of Consult Requesting Physician: Shannon Bliss MD [facility] Consult Narrative Reason for consult: Persistent diarrhea leukocytosis abnormal CTAP History of present illness: 59 years old female with a known history of inflammatory bowel disease has been progressively getting sick leading to emergency room visit today with right lower quadrant abdominal pain and discomfort along with diarrhea She was hospitalized about a year ago in the hospital with severe bloody diarrhea and colonoscopy showed pancolitis with ulceration and diffuse disease It took extensive amount of intervention to get her better where she was doing very well but stopped taking the medication 2 months ago and started to have a reoccurrence of the symptoms When I saw her I started her on her medication including hemogram along with prednisone 30 mg a day She has not improved Pain started in the lower abdomen which prompted her visit to the emergency room She is found to have a WBC count of 16.1 hemoglobin hematocrit dropping to 9.6 and 29.4 with a BUN/creatinine of 12 and 0.4 and a platelet 626,000 CT scan of the abdomen pelvis with contrast showed 10 mm pulmonary nodule in the lingular segment intrahepatically dilatation with common hepatic 8 mm which has been worked up in the past Colonic ileus with diffuse thickening of the colonic wall Because of the severity of the disease and unresponsive to the outpatient treatment patient was subsequently admitted after discussion with the physician retail sales assistant cc:: cc: Shannon Bliss MD Review of Systems Review of Systems Systems Reviewed: All systems reviewed, normal except as documented Past Medical History Surgical History OTHER SURGICAL HX: As in the history of present illness Meds Home Medications and Allergies Home Medications ?Medication ?Instructions ?Recorded ?Confirmed ?Type ursodiol 250 mg tablet 250 mg PO TID ##90 02/17/17 05/26/23 History Allergies Allergy/AdvReac Type Severity Reaction Status Date / Time ciprofloxacin [From Cipro] Allergy Intermediate Gastrointestinal Verified 12/17/24 10:35 Upset levofloxacin Allergy Intermediate Rash Verified 12/17/24 10:35 ibuprofen AdvReac Intermediate Gastrointestinal Verified 12/17/24 10:35 Upset Exam Vital Signs Temp Pulse Resp BP Pulse Ox O2 Del Method 97.6 F 110 H 20 110/68 98 Room Air 12/17/24 18:49 12/17/24 19:14 12/17/24 19:14 12/17/24 19:14 12/17/24 19:14 12/17/24 19:14 Constitutional Comments: Chronically ill-appearing Routine Respiratory Exam Comments: Normal to auscultation Routine Abdominal Exam Comments: Generalized tenderness positive bowel sounds Results Labs 12/17/24 11:49 12/17/24 11:49 Labs: Short CBC 12/17/24 Range/Units 11:49 WBC 16.1 H (3.6-11.0) Thou/mm3 Hgb 9.6 L (12.0-16.0) g/dL Hct 29.4 L (36.0-46.0) % Plt Count 626 H D (140-440) Thou/mm3 BMP 12/17/24 12/17/24 10:10 11:49 Sodium 130 L 124 L Potassium 3.0 L Chloride 85 L Carbon Dioxide 30.1 BUN 12 Creatinine 0.4 L Glucose 121 H Calcium 9.4 Liver Function 12/17/24 Range/Units 11:49 Total Bilirubin 0.6 (0.3-1.2) mg/dL AST 13 (0-34) U/L ALT 19 (10-49) U/L Alkaline Phosphatase 115 (46-116) U/L Albumin 3.8 (3.4-4.8) gm/dL Urine 12/17/24 Range/Units 13:59 Urine Color Lt-Yellow (Lt Yel-Yel) Urine Clarity Clear (Clear/Hazy) Urine pH 7.0 (5.0-7.0) Ur Specific [place] 1.027 (1.001-1.035) Urine Protein Negative (Neg - Trace) Urine Glucose (UA) Negative (Negative) Assessment and Plan Additional Assessment & Plan Additional Plan: # Acute exacerbation of the underlying inflammatory bowel disease not responsive to conservative management at home # Grossly abnormal CT scan of the abdomen and pelvis # Abnormal CT scan of the abdomen and pelvis # Leukocytosis Plan Admit inpatient Fecal calprotectin ANCA antibody CRP IV Solu-Medrol 40 mg IV push every 12 Azathioprine 50 mg once a day Clear liquid diet Start the mesalamine Will follow the patient closely IV fluids Thank you very much for the opportunity to participate in the care of this patient
[2024-12-17 19:42] LABS: Sed Rate (ESR) 68 mm/hr (0-30)
[2024-12-17 20:09] LABS: C-Reactive Protein 27.9 mg/dL (0.0-0.9); Sodium 127 mMol/L (136-145)
[2024-12-17] MEDS: azaTHIOprine 50 MG TABLET PO (20:34)
[2024-12-18] VITALS (13 sets, daily range): BP systolic 102–120; BP diastolic 67–78; PULSE 79–106; RESP 16–94; TEMP 36–37.7; O2SAT 94–97; BMI 22.8; BMI 23.0
[2024-12-18 00:20] LABS: Sodium 129 mMol/L (136-145)
[2024-12-18] MEDS: HYDROcodone/APAP 5/325 TABLET 1 TAB PO ×6 (01:30→23:38)
[2024-12-18] MEDS: MESALAMINE 250 MG CAPSULE.ER 1000 MG PO ×4 (05:27→20:58)
[2024-12-18 05:57] LABS: Basophils % (Auto) 0 % (0-2.5); Eosinophils % (Auto) 0 % (0-10); Hematocrit 23.2 % (36.0-46.0); Immature Granulocytes % (Auto) 3 % (0-0); Immature Granulocytes Auto 0.32 Thou/mm3 (0.00-0.00); Lymphocytes # (Auto) 0.8 Thou/mm3 (1.0-4.8); Lymphocytes % (Auto) 6 % (10-50); Mean Corpuscular HGB Conc 32.3 g/dl (31.0-37.0); Mean Corpuscular Hemoglobin 28.1 pg (25.0-35.0); Mean Corpuscular Volume 87 fL (80-100); Monocytes # (Auto) 0.5 Thou/mm3 (0.0-0.8); Monocytes % (Auto) 4 % (0-12); Neutrophils % (Auto) 88 % (37-80); Nucleated Red Blood Cell % 0 /100 WBC (0); Platelet Count 489 Thou/mm3 (140-440); RDW Standard Deviation 43.6 fL (36.4-46.3); Red Blood Count 2.67 Miln/mm3 (4.00-5.20); White Blood Count 12.5 Thou/mm3 (3.6-11.0)
[2024-12-18 05:58] LABS: Hemoglobin 7.5 g/dL (12.0-16.0)
[2024-12-18 06:22] LABS: Anion Gap 5 (7-16); BUN/Creatinine Ratio 20 Ratio (12-20); Blood Urea Nitrogen 6 mg/dL (9-23); Calcium 8.3 mg/dL (8.3-10.6); Carbon Dioxide 27.8 mMol/L (20.0-31.0); Chloride 97 mMol/L (98-107); Creatinine (Component) 0.3 mg/dL (0.6-1.3); Estimated Creatinine Clearance 155.8 mL/min (>60); Glucose 128 mg/dL (74-106); Osmolality,Calculated 260 (275-295); Phosphorous 2.3 mg/dL (2.4-5.1); Potassium 3.9 mMol/L (3.4-5.1); Sodium 130 mMol/L (136-145); Thyroid Stimulating Hormone 0.44 uIU/mL (0.55-4.78); eGFR > 60 See Note
[2024-12-18 06:35] LABS: Cardiac Risk Estimate 3.9 RATIO (3.7-5.6); Cholesterol 109 mg/dL (132-200); HDL Cholesterol 28 mg/dL (40-60); LDL Cholesterol,Calculated 57 mg/dL (0-130); Triglycerides 122 mg/dL (30-150)
[2024-12-18 06:51] LABS: Glucose Estimated Average 103 mg/dL (80-131); Hemoglobin A1C 5.2 % Hgb (4.8-6.0)
[2024-12-18] MEDS: NAPH,KPH MBDB 1 PACKET (1.5 GM) 2 PACKET PO (08:44)
[2024-12-18] MEDS: SODIUM CHLORIDE 0.9% 1000 ML 1,000 ML 120 ML IV (08:44)
[2024-12-18] MEDS: PANTOPRAZOLE INJ 40 MG VIAL IVP (08:45)
[2024-12-18] MEDS: POTASSIUM PHOS 22.5 MMOL in SODIUM CHLORIDE 0.9% 500 ML 500 ML 82.778 MMOL IV (08:50)
[2024-12-18 09:25] LABS: Sodium 131 mMol/L (136-145)
[2024-12-18] MEDS: azaTHIOprine 50 MG TABLET PO ×2 (09:55→20:58)
--- NOTE | 2024-12-18 10:23 | PC.SS ---
SS follow up note; Patient is on IV Medication. Pending Dr. Gamboa's consult.
[2024-12-18 10:49] LABS: Free T4 (Free Thyroxine) 1.16 ng/dL (0.89-1.76)
[2024-12-18 12:11] LABS: Sodium 131 mMol/L (136-145)
--- NOTE | 2024-12-18 13:20 | ESPR_ITS ---
<Statement entered by Mohamud Mackenzie MD - 12/18/24 13:34> Patient was seen and examined at the bedside this morning. Patient reported that her pain has markedly improved and she feels sleepy and fatigued?she could not sleep last night due to pain and has been feeling generalized weakness. There was a hemoglobin drop from 9.6-7.5 therefore repeated an H&H. We escalated her diet to full liquid and dropped her rate on full fluids at 50 cc/h. Electrolytes were repleted. Patient's CRP was elevated. Plan is to continue IV Solu-Medrol azathioprine and mesalamine and await on final culture results for stool and blood. GI is following the case and recommended to continue current management and does not plan to do colonoscopy at this point due to flareup of ulcerative colitis. Patient was updated regarding plan. All labs and orders were reviewed. Plan for MRCP will be based on GI if they would like to do outpatient or inpatient later on. I saw and examined the patient, and I agree with current management stated by Dr Lew MD,PGY1. Plan of care was discussed with the attending physician and resident physician. Disclaimer: Despite multiple revisions, due to the dictation software being used, the document bellow may not be free of grammatical errors including phonetic/typographic errors. However, this does not deter from our commitment to providing health care in the patient's best interest in mind. Dr. Avril MD, PGY 2 Documentation for date of: 12/18/24 Subjective Subjective Interval history: No overnight events. Patient seen and examined at bedside, standing without issue. Patient states she feels well, mild abdominal tenderness that is greatly improved. Denies fever, chills, weakness, shortness of breath, lightheadedness, nausea, vomiting. Advance diet to full liquid. Monitor hemoglobin closely. Reduced rate of IVF. Exam Vital Signs Temp Pulse Resp BP Pulse Ox O2 Del Method 96.8 F 90 19 102/69 94 L Room Air 12/18/24 12:00 12/18/24 12:00 12/18/24 12:00 12/18/24 12:00 12/18/24 12:12/18/24 12:00 Narrative Exam Gen: AAOx3, lean female. Saturating well on room air. HEENT: NCAT, MATT, EOMI, dry mucous membrane, no JVD CVS: Normal S1, S2. Sinus tachycardia with regular rhythm. No MRG Resp: CTAB, moving air well. No crackles or wheezes are heard. Abd: Soft, mild diffuse abdominal tenderness, improved. Active bowel sounds. 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 No focal deficits noted. Psych: Appropriate mood and affect Objective Labs 12/18/24 04:30 12/18/24 11:23 Labs: Laboratory Results - last 24 hr 12/17/24 12/17/24 12/17/24 10:10 11:49 13:59 WBC RBC Hgb Hct MCV MCH MCHC RDW Std Deviation Plt Count Neut % (Auto) Lymph % (Auto) [place] % (Auto) Eos % (Auto) Baso % (Auto) Neut # (Auto) Lymph # (Auto) [place] # (Auto) Eos # (Auto) Baso # (Auto) Immature Gran # (Auto) Absolute Nucleated RBC Immature Gran % Nucleated RBC % ESR 68 H Sodium 130 L 124 L Potassium Chloride Carbon Dioxide Anion Gap BUN Creatinine Estim Creat Clear Calc eGFR BUN/Creatinine Ratio Glucose Estimated Ave Glu mg/dL Hemoglobin A1c Calculated Osmolality Calcium Phosphorus Magnesium 1.9 C-Reactive Prot, Quant Triglycerides Cholesterol LDL Cholesterol, Calc HDL Cholesterol Cholesterol/HDL Ratio TSH Free T4 Ur Collection Type Clean Catch Urine Color Lt-Yellow Urine Clarity Clear Urine pH 7.0 Ur Specific [place] 1.027 Urine Protein Negative Urine Glucose (UA) Negative Urine Ketones 1+ A Urine Blood Negative Urine Nitrite Negative Urine Bilirubin Negative Urine Urobilinogen (Auto) Negative Ur Leukocyte Esterase Negative Urine RBC 1 Urine WBC < 1 Ur Squamous Epith Cells 0 Urine Bacteria None Ur Culture Indicated? Not Indicated Blood Type O Positive Antibody Screen NEGATIVE Blood Bank Wristband ID Yes 12/17/24 12/17/24 12/18/24 19:43 23:59 04:30 WBC 12.5 H RBC 2.67 L Hgb 7.5 L D Hct 23.2 L MCV 87 MCH 28.1 MCHC 32.3 RDW Std Deviation 43.6 Plt Count 489 H D Neut % (Auto) 88 H Lymph % (Auto) [address] [place] % (Auto) 4 Eos % (Auto) 0 Baso % (Auto) 0 Neut # (Auto) 11.0 H Lymph # (Auto) 0.[address] [place] # (Auto) 0.5 Eos # (Auto) 0.0 Baso # (Auto) 0.0 Immature Gran # (Auto) 0.32 H Absolute Nucleated RBC 0.00 Immature Gran % 3 H Nucleated RBC % 0 ESR Sodium 127 L 129 L 130 L Potassium 3.9 D Chloride 97 L Carbon Dioxide 27.8 Anion Gap 5 L BUN 6 L Creatinine 0.3 L Estim Creat Clear Calc 155.8 eGFR > 60 BUN/Creatinine Ratio [address] Glu mg/dL 103 Hemoglobin A1c 5.2 Calculated Osmolality 260 L Calcium 8.3 Phosphorus 2.3 L Magnesium 2.0 C-Reactive Prot, Quant 27.9 H Triglycerides 122 Cholesterol 109 L LDL Cholesterol, Calc 57 HDL Cholesterol 28 L Cholesterol/HDL Ratio 3.9 TSH 0.44 L Free T4 Ur Collection Type Urine Color Urine Clarity Urine pH Ur Specific [place] Urine Protein Urine Glucose (UA) Urine Ketones Urine Blood Urine Nitrite Urine Bilirubin Urine Urobilinogen (Auto) Ur Leukocyte Esterase Urine RBC Urine WBC Ur Squamous Epith Cells Urine Bacteria Ur Culture Indicated? Blood Type Antibody Screen Blood Bank Wristband ID 12/18/24 12/18/24 08:00 11:23 WBC RBC Hgb Hct MCV MCH MCHC RDW Std Deviation Plt Count Neut % (Auto) Lymph % (Auto) [place] % (Auto) Eos % (Auto) Baso % (Auto) Neut # (Auto) Lymph # (Auto) [place] # (Auto) Eos # (Auto) Baso # (Auto) Immature Gran # (Auto) Absolute Nucleated RBC Immature Gran % Nucleated RBC % ESR Sodium 131 L 131 L Potassium Chloride Carbon Dioxide Anion Gap BUN Creatinine Estim Creat Clear Calc eGFR BUN/Creatinine Ratio Glucose Estimated Ave Glu mg/dL Hemoglobin A1c Calculated Osmolality Calcium Phosphorus Magnesium C-Reactive Prot, Quant Triglycerides Cholesterol LDL Cholesterol, Calc HDL Cholesterol Cholesterol/HDL Ratio TSH Free T4 1.16 Ur Collection Type Urine Color Urine Clarity Urine pH Ur Specific [place] Urine Protein Urine Glucose (UA) Urine Ketones Urine Blood Urine Nitrite Urine Bilirubin Urine Urobilinogen (Auto) Ur Leukocyte Esterase Urine RBC Urine WBC Ur Squamous Epith Cells Urine Bacteria Ur Culture Indicated? Blood Type Antibody Screen Blood Bank Wristband ID Quality Measures Quality Measures VTE prophylaxis and none Assessment & Plan Assessment Current Active Medications: Generic Name Dose Route Start Last Admin Trade Name Freq PRN Reason Stop Dose Admin Acetaminophen 650 mg 12/17/24 15:27 Acetaminophen 325 Mg Tablet PO 01/16/25 15:26 Q6H PRN Fever >100.3 or pain Protocol Hydrocodone Bitart/Acetaminophen 1 tab 12/17/24 15:27 12/18/24 09:54 Hydrocodone/Apap 5/325 Tablet PO 12/22/24 15:26 1 tab Q4HR PRN Administration PAIN SCALE 4-6 (Moderate Azathioprine 50 mg 12/17/24 21:00 12/18/24 09:55 Azathioprine 50 Mg Tablet PO 01/16/25 20:59 50 mg BID CAMERON Administration Potassium Phosphate 22.5 mmol/ 507.5 mls @ 82.778 mls/hr 12/18/24 07:58 12/18/24 08:50 Sodium Chloride IV 12/18/24 14:05 82.778 mls/hr X1 ONE Administration Sodium Chloride 1,000 mls @ 50 mls/hr 12/18/24 10:15 Ns IV 12/18/24 15:29 .Q20H CAMERON Mesalamine 1,000 mg 12/17/24 17:00 12/18/24 12:56 Mesalamine 250 Mg Capsule.Er PO 01/16/25 16:59 1,000 mg QID CAMERON Administration Morphine Sulfate 2 mg 12/17/24 15:27 Morphine Sulf Inj 10 Mg/Ml Vial IVP 12/22/24 15:26 Q4H PRN PAIN SCALE 7-10 (Severe Ondansetron HCl 4 mg 12/17/24 15:27 Ondansetron Inj 2 Mg/Ml Inj 2 Ml IV 01/16/25 15:26 Q6H PRN NAUSEA OR VOMITING Protocol Pantoprazole Sodium 40 mg 12/17/24 15:30 12/18/24 08:45 Pantoprazole Inj 40 Mg Vial IVP 01/16/25 15:29 40 mg QDAY CAMERON Administration Sennosides 1 tab 12/17/24 15:27 Senna Tablet PO 01/16/25 15:26 QDAY PRN constipation Protocol Plan 59-year-old female with past medical history of IBD/ulcerative colitis on mesalamine and steroid therapy presented to the ED on 12/17/2024 with chief complaint of right lower quadrant intractable pain and diarrhea from last 1 day. Patient is admitted for further workup and management of flare of ulcerative colitis and hyponatremia. #Inflammatory bowel disease #Ulcerative colitis, flare #Intractable right lower quadrant pain Patient presented with intractable right lower quadrant pain and diarrhea from last 1 day.She reported that she stopped her IBD therapy for at least 5 months and restarted her medications on November 30, [address] Gamboa as outpatient and possible reason for her discontinuation was that she felt that she is getting better and she should stop her medications. She was not feeling nauseous however reported to have vomiting a few days ago. Patient reported to had appetite loss from a week and reported to have decreased p.o. intake including water intake. Denied any chest pain, fever/chills, shortness of breath, burning/dysuria. Colonoscopy was done in the past which confirmed IBD. In the ED, patient was hypotensive tachycardic breathing normally and afebrile. She was saturating well on room air. Labs were significant for leukocytosis, normocytic anemia, thrombocytosis. CHEM panel was significant for hypoosmolar hyponatremia sodium 124, hypokalemia 3.0 and hypochloremia 85. Kidney functions were stable BUN 12 and creatinine 0.4. Blood glucose 121. Lactic acid was unremarkable. Lipase was negative. Procalcitonin negative. UA showed mild ketones. Lactic acid and lipase negative. CT abdomen pelvis was significant for a pericardial effusion 7 mm cholelithiasis contracted gallbladder intrahepatic biliary tract dilation common hepatic duct 8 mm nodular thickening left adrenal gland 4 mm lower pole right renal calculus significant colonic ileus with diffuse wall thickening of the colon advanced degenerative disc disease L5-S1. EKG showed sinus tachycardia with QTc 451. Patient received IV fluids 1 bolus and KCl 40 mEq IV and Zofran x 1 in the ED. -IVF: Normal saline 50 L/h -Started mesalamine 1 g 4 times daily, azathioprine 50 mg twice daily and Solu- Medrol every 12 hourly -Consulted GI appreciate recommendations -Replete electrolytes as necessary -Ordered acetaminophen, [place] and morphine for pain management -IV Zofran as needed for nausea and vomiting -GI recommended that we do not need colonoscopy at this point and will likely await on improvement in flare of ulcerative colitis -Full liquid diet #Hypoosmolar hyponatremia and hypochloremia -Likely related to decreased p.o. intake Sodium 124, osmolarity 250. Asymptomatic. Improved with IVF, rate reduced -IVF: Normal saline 50 mL/h -Ordered sodium checks Q4 hourly -Daily labs #Electrolyte disturbance #Hypokalemia Likely related to decreased p.o. intake Potassium was 3.0 ?IV 40 mEq KCl given x 1 in 20 mEq p.o. -Follow-up with CMP daily #Leukocytosis likely related to steroid intake #Normocytic anemia #Thrombocytosis -Likely related to malabsorption WBC 16.1 and hemoglobin 9.6, platelets 626 Patient hemoglobin dropped to 7.5, and notable drop in all cell lines. Possible dilutional. -Daily CBC -Monitor for fever spikes -PRBC if hemoglobin drops below 7 -Ordered type and screen -H&H in the afternoon -reduce rate of IVF #Intrahepatic biliary tract dilation Likely due to IBD versus cholelithiasis. Patient denies any right upper quadrant pain and Navarrete sign was negative. Patient's LFTs were unremarkable. Old CT findings were consistent with intrahepatic biliary tract dilation however not worked up in the outpatient setting. -GI recommended that we may need MRCP before discharge once her colon inflammation has settled #Incidental finding 10 mm pulmonary nodule lingular segment Remote history of smoking few cigarettes every day quit many years ago. -Outpatient follow-up #Hyperglycemia Likely due to steroids. A1c 5.2% -Monitor Diet: Full liquid diet GI prophylaxis: Protonix IV daily DVT prophylaxis: SCDs CODE STATUS: Full code Plan of care discussed with senior resident Dr. Mackenzie PGY?[address] Bliss. Ridge Hackett MD PGY-1 Attending Provider Attestation/Addendum I attest that I was physically present for the evaluation, physical examination, lab and imaging review of the patient with the residents. I discussed the case with the residents and agree with the findings and plans of care as documented above. At bedside today, patient states he is feeling much better. Abdominal pain has been well-controlled with the analgesics. Continues to be on anxiety or pain, mesalamine and steroids. Hemoglobin noted to be at 7.5 today from 9.6 yesterday. We will follow-up with evening level and transfuse if necessary. Her sodium level has been improving, we will decrease the IV hydration with. Started patient on full liquid diet. Shannon Bliss MD
[2024-12-18 17:39] LABS: Hematocrit 22.2 % (36.0-46.0)
[2024-12-18 17:41] LABS: Hemoglobin 7.2 g/dL (12.0-16.0)
--- NOTE | 2024-12-18 18:01 | PC.NURSE ---
Pt. has orders of the blood Transfusion. attending been requested to come and talk to the pt. for this recent change and need for blood. They are in the room and explaining pt.
[2024-12-18 18:02] LABS: Phosphorous 3.1 mg/dL (2.4-5.1)
[2024-12-18 18:04] LABS: Clostridium Difficile PCR Negative (Negative)
--- NOTE | 2024-12-18 18:09 | PC.NURSE ---
at [facility] [place] pt. said she is going to talk to the family about the blood transfusion after that she will let the team know her decision if she is ready to accept the transfusion. Will wait for her decision and keep the attending team updated about descion when she will inform the nurse.
--- NOTE | 2024-12-18 18:16 | PC.NURSE ---
pt. has the NS already running the rate adjusted to 60ml/hr per the new rate order by the attending.
--- NOTE | 2024-12-18 18:31 | PC.NURSE ---
is in the pt. Room pt. has agreed to receive the blood TX. will pass it on to the night nurse as well.
--- NOTE | 2024-12-18 20:17 | PD.IMPROG ---
Documentation for date of: 12/18/24 Subjective Subjective Interval history: Sodium improved to 131 BUN/creatinine improved hemoglobin hematocrit dropped to 7.2 and 22.2 and patient refusing blood transfusion Exam Vital Signs Temp Pulse Resp BP Pulse Ox O2 Del Method 97.0 F 83 20 109/70 96 Room Air 12/18/24 16:00 12/18/24 16:00 12/18/24 16:00 12/18/24 16:00 12/18/24 16:00 12/18/24 16:00 Routine Respiratory Exam Comments: Normal to auscultation Routine Abdominal Exam Comments: Tender positive bowel sounds Objective Labs 12/19/24 04:40 12/19/24 04:40 Labs: Laboratory Results - last 24 hr 12/17/24 12/18/24 12/18/24 23:59 04:30 08:00 WBC 12.5 H RBC 2.67 L Hgb 7.5 L D Hct 23.2 L MCV 87 MCH 28.1 MCHC 32.3 RDW Std Deviation 43.6 Plt Count 489 H D Neut % (Auto) 88 H Lymph % (Auto) 6 L [place] % (Auto) 4 Eos % (Auto) 0 Baso % (Auto) 0 Neut # (Auto) 11.0 H Lymph # (Auto) 0.8 L [place] # (Auto) 0.5 Eos # (Auto) 0.0 Baso # (Auto) 0.0 Immature Gran # (Auto) 0.32 H Absolute Nucleated RBC 0.00 Immature Gran % 3 H Nucleated RBC % 0 Sodium 129 L 130 L 131 L Potassium 3.9 D Chloride 97 L Carbon Dioxide 27.8 Anion Gap 5 L BUN 6 L Creatinine 0.3 L Estim Creat Clear Calc 155.8 eGFR > 60 BUN/Creatinine Ratio [address] Glu mg/dL 103 Hemoglobin A1c 5.2 Calculated Osmolality 260 L Calcium 8.3 Phosphorus 2.3 L Magnesium 2.0 Triglycerides 122 Cholesterol 109 L LDL Cholesterol, Calc 57 HDL Cholesterol 28 L Cholesterol/HDL Ratio 3.9 TSH 0.44 L Free T4 1.16 Stl C. diff Tox B Gene Blood Type Antibody Screen Crossmatch Blood Bank Wristband ID 12/18/24 12/18/24 12/18/24 11:23 14:07 17:30 WBC RBC Hgb 7.2 L Hct 22.2 L MCV MCH MCHC RDW Std Deviation Plt Count Neut % (Auto) Lymph % (Auto) [place] % (Auto) Eos % (Auto) Baso % (Auto) Neut # (Auto) Lymph # (Auto) [place] # (Auto) Eos # (Auto) Baso # (Auto) Immature Gran # (Auto) Absolute Nucleated RBC Immature Gran % Nucleated RBC % Sodium 131 L Potassium Chloride Carbon Dioxide Anion Gap BUN Creatinine Estim Creat Clear Calc eGFR BUN/Creatinine Ratio Glucose Estimated Ave Glu mg/dL Hemoglobin A1c Calculated Osmolality Calcium Phosphorus 3.1 Magnesium Triglycerides Cholesterol LDL Cholesterol, Calc HDL Cholesterol Cholesterol/HDL Ratio TSH Free T4 Stl C. diff Tox B Gene Negative Blood Type Antibody Screen Crossmatch Blood Bank Wristband ID 12/18/24 18:21 WBC RBC Hgb Hct MCV MCH MCHC RDW Std Deviation Plt Count Neut % (Auto) Lymph % (Auto) [place] % (Auto) Eos % (Auto) Baso % (Auto) Neut # (Auto) Lymph # (Auto) [place] # (Auto) Eos # (Auto) Baso # (Auto) Immature Gran # (Auto) Absolute Nucleated RBC Immature Gran % Nucleated RBC % Sodium Potassium Chloride Carbon Dioxide Anion Gap BUN Creatinine Estim Creat Clear Calc eGFR BUN/Creatinine Ratio Glucose Estimated Ave Glu mg/dL Hemoglobin A1c Calculated Osmolality Calcium Phosphorus Magnesium Triglycerides Cholesterol LDL Cholesterol, Calc HDL Cholesterol Cholesterol/HDL Ratio TSH Free T4 Stl C. diff Tox B Gene Blood Type O Positive Antibody Screen NEGATIVE Crossmatch See Detail Blood Bank Wristband ID Yes Impressions Impression: # Acute exacerbation of the underlying inflammatory bowel disease # Improving gross electrolyte abnormalities # Acute posthemorrhagic anemia Assessment & Plan A&P Narrative # Acute exacerbation of the underlying inflammatory bowel disease not responsive to conservative management at home # Grossly abnormal CT scan of the abdomen and pelvis # Abnormal CT scan of the abdomen and pelvis # Leukocytosis Plan Admit inpatient Fecal calprotectin ANCA antibody CRP IV Solu-Medrol 40 mg IV push every 12 Azathioprine 50 mg once a day Clear liquid diet Start the mesalamine Will follow the patient closely IV fluids Thank you very much for the opportunity to participate in the care of this patient Time Spent With Patient Time: Total time spent is greater than 50% in coordination of care (as documented) at patient's floor/unit and/or counseling patient:
[2024-12-19] VITALS (9 sets, daily range): BP systolic 106–115; BP diastolic 60–71; PULSE 72–113; RESP 16–94; TEMP 36.2–37.3; O2SAT 94–95; BMI 23.0
[2024-12-19] MEDS: SODIUM CHLORIDE 0.9% 1000 ML 1,000 ML 60 ML IV ×2 (00:12→16:11)
[2024-12-19 01:47] LABS: Hematocrit 26.9 % (36.0-46.0)
--- NOTE | 2024-12-19 02:04 | PC.NURSE ---
Dr. Quesada made aware of the results of Hgb and Hct post blood transfusion. No new orders at this time.
[2024-12-19] MEDS: HYDROcodone/APAP 5/325 TABLET 1 TAB PO ×4 (05:02→19:46)
[2024-12-19] MEDS: MESALAMINE 250 MG CAPSULE.ER 1000 MG PO ×4 (05:02→21:04)
[2024-12-19 06:09] LABS: Basophils # (Auto) 0.1 Thou/mm3 (0.0-0.2); Basophils % (Auto) 1 % (0-2.5); Eosinophils # (Auto) 0.1 Thou/mm3 (0.0-0.5); Eosinophils % (Auto) 1 % (0-10); Hematocrit 27.5 % (36.0-46.0); Hemoglobin 9.2 g/dL (12.0-16.0); Immature Granulocytes % (Auto) 2 % (0-0); Immature Granulocytes Auto 0.23 Thou/mm3 (0.00-0.00); Lymphocytes # (Auto) 1.4 Thou/mm3 (1.0-4.8); Lymphocytes % (Auto) 12 % (10-50); Mean Corpuscular HGB Conc 33.5 g/dl (31.0-37.0); Mean Corpuscular Hemoglobin 29.3 pg (25.0-35.0); Mean Corpuscular Volume 88 fL (80-100); Monocytes # (Auto) 0.3 Thou/mm3 (0.0-0.8); Monocytes % (Auto) 3 % (0-12); Neutrophils # (Auto) 9.1 Thou/mm3 (1.8-7.7); Neutrophils % (Auto) 82 % (37-80); Nucleated Red Blood Cell % 0 /100 WBC (0); Platelet Count 466 Thou/mm3 (140-440); RDW Standard Deviation 46.2 fL (36.4-46.3); Red Blood Count 3.14 Miln/mm3 (4.00-5.20); White Blood Count 11.2 Thou/mm3 (3.6-11.0)
[2024-12-19 06:48] LABS: Anion Gap 7 (7-16); BUN/Creatinine Ratio 23 Ratio (12-20); Blood Urea Nitrogen 7 mg/dL (9-23); Calcium 8.1 mg/dL (8.3-10.6); Carbon Dioxide 25.6 mMol/L (20.0-31.0); Chloride 98 mMol/L (98-107); Creatinine (Component) 0.3 mg/dL (0.6-1.3); Estimated Creatinine Clearance 148.6 mL/min (>60); Glucose 76 mg/dL (74-106); Magnesium 1.6 mg/dL (1.6-2.6); Osmolality,Calculated 259 (275-295); Phosphorous 2.5 mg/dL (2.4-5.1); Potassium 3.6 mMol/L (3.4-5.1); Sodium 131 mMol/L (136-145); eGFR > 60 See Note
[2024-12-19] MEDS: azaTHIOprine 50 MG TABLET PO ×2 (08:42→21:04)
[2024-12-19] MEDS: PANTOPRAZOLE INJ 40 MG VIAL IVP (08:42)
[2024-12-19] MEDS: Magnesium Sulfate 4 GM Ivpb 4 GM/50 ML BAG IV (08:43)
[2024-12-19] MEDS: POTASSIUM CHLORIDE 20 mEq TABCR PO (08:43)
[2024-12-19 09:43] LABS: Stool for WBCs 3+ (Negative)
[2024-12-19] MEDS: predniSONE 5 MG TABLET 15 MG PO ×2 (11:50→21:04)
--- NOTE | 2024-12-19 13:03 | PC.SS ---
SS follow up note; Pending MRCP. Patient's HMG has been low. Advancing Diet.
--- NOTE | 2024-12-19 13:12 | ESPR_ITS ---
<Statement entered by Mohamud Mackenzie MD - 12/19/24 15:02> Patient was seen and examined at the bedside this morning. Patient reported improvement in abdominal pain. Patient's hemoglobin improved after 1 unit PRBC to 9.2. White count improved to 11.2. We are advancing her diet as tolerated and encouraged the patient to eat as she has decreased appetite. We are currently waiting on final stool cultures. Blood cultures are growing negative for 24 hours. Switched her Solu-Medrol to prednisone 50 mg twice daily and will taper off weekly. Will continue with azathioprine and mesalamine for ulcerative colitis. GI is agreeable to the plan. All labs and orders were reviewed. I saw and examined the patient, and I agree with current management stated by Dr Lew MD,PGY1. Plan of care was discussed with the attending physician and resident physician. Disclaimer: Despite multiple revisions, due to the dictation software being used, the document bellow may not be free of grammatical errors including phonetic/typographic errors. However, this does not deter from our commitment to providing health care in the patient's best interest in mind. Dr. Avril MD, PGY 2 Documentation for date of: 12/19/24 Subjective Subjective Interval history: Overnight: Patient hemoglobin found to be low, trending down to 7.2. Received 1 unit PRBC, blood transfusion H&H 9.0. Patient seen and examined at bedside, resting comfortably. Patient endorses is mild abdominal tenderness, poor appetite but improving. Denies fevers, chills, nausea, vomiting, weakness, lethargy. Having 1?3 bowel movements daily. P.o. steroids. Continue other medications. Exam Vital Signs Temp Pulse Resp BP Pulse Ox O2 Del Method 98.2 F 113 H 16 112/64 94 L Room Air 12/19/24 11:46 12/19/24 11:46 12/19/24 11:46 12/19/24 11:46 12/19/24 11:46 12/19/24 11:46 Narrative Exam Gen: AAOx3, lean female. Saturating well on room air. HEENT: NCAT, MATT, EOMI, dry mucous membrane, no JVD CVS: Normal S1, S2. Sinus tachycardia with regular rhythm. No MRG Resp: CTAB, moving air well. No crackles or wheezes are heard. Abd: Soft, mild diffuse abdominal tenderness, improved. Active bowel sounds. 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 No focal deficits noted. Psych: Appropriate mood and affect Objective Labs 12/19/24 04:40 12/19/24 04:40 Labs: Laboratory Results - last 24 hr 12/17/24 12/18/24 12/18/24 21:53 14:07 17:30 WBC RBC Hgb 7.2 L Hct 22.2 L MCV MCH MCHC RDW Std Deviation Plt Count Neut % (Auto) Lymph % (Auto) [place] % (Auto) Eos % (Auto) Baso % (Auto) Neut # (Auto) Lymph # (Auto) [place] # (Auto) Eos # (Auto) Baso # (Auto) Immature Gran # (Auto) Absolute Nucleated RBC Immature Gran % Nucleated RBC % Sodium Potassium Chloride Carbon Dioxide Anion Gap BUN Creatinine Estim Creat Clear Calc eGFR BUN/Creatinine Ratio Glucose Calculated Osmolality Calcium Phosphorus 3.1 Magnesium Stool for White Cells 3+ A Stl C. diff Tox B Gene Negative Blood Type Antibody Screen Crossmatch Blood Bank Wristband ID 12/18/24 12/19/24 12/19/24 18:21 01:22 04:40 WBC 11.2 H RBC 3.14 L Hgb 9.0 L D 9.2 L Hct 26.9 L 27.5 L MCV 88 MCH 29.3 MCHC 33.5 RDW Std Deviation 46.2 Plt Count 466 H Neut % (Auto) 82 H Lymph % (Auto) 12 [place] % (Auto) 3 Eos % (Auto) 1 Baso % (Auto) 1 Neut # (Auto) 9.1 H Lymph # (Auto) 1.4 [place] # (Auto) 0.3 Eos # (Auto) 0.1 Baso # (Auto) 0.1 Immature Gran # (Auto) 0.23 H Absolute Nucleated RBC 0.00 Immature Gran % 2 H Nucleated RBC % 0 Sodium 131 L Potassium 3.6 Chloride 98 Carbon Dioxide 25.6 Anion Gap 7 BUN 7 L Creatinine 0.3 L Estim Creat Clear Calc 148.6 eGFR > 60 BUN/Creatinine Ratio 23 H Glucose 76 D Calculated Osmolality 259 L Calcium 8.1 L Phosphorus 2.5 Magnesium 1.6 Stool for White Cells Stl C. diff Tox B Gene Blood Type O Positive Antibody Screen NEGATIVE Crossmatch See Detail Blood Bank Wristband ID Yes Quality Measures Quality Measures VTE prophylaxis and none Assessment & Plan Assessment Current Active Medications: Generic Name Dose Route Start Last Admin Trade Name Freq PRN Reason Stop Dose Admin Acetaminophen 650 mg 12/17/24 15:27 Acetaminophen 325 Mg Tablet PO 01/16/25 15:26 Q6H PRN Fever >100.3 or pain Protocol Hydrocodone Bitart/Acetaminophen 1 tab 12/17/24 15:27 12/19/24 09:18 Hydrocodone/Apap 5/325 Tablet PO 12/22/24 15:26 1 tab Q4HR PRN Administration PAIN SCALE 4-6 (Moderate Azathioprine 50 mg 12/17/24 21:00 12/19/24 08:42 Azathioprine 50 Mg Tablet PO 01/16/25 20:59 50 mg BID CAMERON Administration Sodium Chloride 1,000 mls @ 60 mls/hr 12/18/24 17:30 12/19/24 00:12 Ns IV 12/19/24 17:29 60 mls/hr .[id number] CAMERON Administration Mesalamine 1,000 mg 12/17/24 17:00 12/19/24 11:51 Mesalamine 250 Mg Capsule.Er PO 01/16/25 16:59 1,000 mg QID CAMERON Administration Morphine Sulfate 2 mg 12/17/24 15:27 Morphine Sulf Inj 10 Mg/Ml Vial IVP 12/22/24 15:26 Q4H PRN PAIN SCALE 7-10 (Severe Ondansetron HCl 4 mg 12/17/24 15:27 Ondansetron Inj 2 Mg/Ml Inj 2 Ml IV 01/16/25 15:26 Q6H PRN NAUSEA OR VOMITING Protocol Pantoprazole Sodium 40 mg 12/17/24 15:30 12/19/24 08:42 Pantoprazole Inj 40 Mg Vial IVP 01/16/25 15:29 40 mg QDAY CAMERON Administration Prednisone 15 mg 12/19/24 10:45 12/19/24 11:50 Prednisone 5 Mg Tablet PO 12/26/24 10:45 15 mg BID CAMERON Administration Sennosides 1 tab 12/17/24 15:27 Senna Tablet PO 01/16/25 15:26 QDAY PRN constipation Protocol Plan 59-year-old female with past medical history of IBD/ulcerative colitis on mesalamine and steroid therapy presented to the ED on 12/17/2024 with chief complaint of right lower quadrant intractable pain and diarrhea from last 1 day. Patient is admitted for further workup and management of flare of ulcerative colitis and hyponatremia. #Inflammatory bowel disease #Ulcerative colitis, flare #Intractable right lower quadrant pain Patient presented with intractable right lower quadrant pain and diarrhea from last 1 day.She reported that she stopped her IBD therapy for at least 5 months and restarted her medications on November 30, [address] Gamboa as outpatient and possible reason for her discontinuation was that she felt that she is getting better and she should stop her medications. She was not feeling nauseous however reported to have vomiting a few days ago. Patient reported to had appetite loss from a week and reported to have decreased p.o. intake including water intake. Denied any chest pain, fever/chills, shortness of breath, burning/dysuria. Colonoscopy was done in the past which confirmed IBD. In the ED, patient was hypotensive tachycardic breathing normally and afebrile. She was saturating well on room air. Labs were significant for leukocytosis, normocytic anemia, thrombocytosis. CHEM panel was significant for hypoosmolar hyponatremia sodium 124, hypokalemia 3.0 and hypochloremia 85. Kidney functions were stable BUN 12 and creatinine 0.4. Blood glucose 121. Lactic acid was unremarkable. Lipase was negative. Procalcitonin negative. UA showed mild ketones. Lactic acid and lipase negative. CT abdomen pelvis was significant for a pericardial effusion 7 mm cholelithiasis contracted gallbladder intrahepatic biliary tract dilation common hepatic duct 8 mm nodular thickening left adrenal gland 4 mm lower pole right renal calculus significant colonic ileus with diffuse wall thickening of the colon advanced degenerative disc disease L5-S1. EKG showed sinus tachycardia with QTc 451. Patient received IV fluids 1 bolus and KCl 40 mEq IV and Zofran x 1 in the ED. -IVF: Normal saline 50 L/h -Started mesalamine 1 g 4 times daily, azathioprine 50 mg twice daily -Prednisone 15 mg twice daily -Consulted GI appreciate recommendations -Replete electrolytes as necessary -Ordered acetaminophen, [place] and morphine for pain management -IV Zofran as needed for nausea and vomiting -GI recommended that we do not need colonoscopy at this point and will likely await on improvement in flare of ulcerative colitis -Full liquid diet #Hypoosmolar hyponatremia and hypochloremia -Likely related to decreased p.o. intake Sodium 124, osmolarity 250. Asymptomatic. Improved with IVF, rate reduced -IVF: Normal saline 60 mL/h -Ordered sodium checks Q4 hourly -Daily labs #Electrolyte disturbance #Hypokalemia Likely related to decreased p.o. intake Potassium was 3.0 ?IV 40 mEq KCl given x 1 in 20 mEq p.o. -Follow-up with CMP daily #Leukocytosis likely related to steroid intake #Normocytic anemia #Thrombocytosis -Likely related to malabsorption WBC 16.1 and hemoglobin 9.6, platelets 626 Patient hemoglobin dropped to 7.5, and notable drop in all cell lines. Possible dilutional. Repeat CBC confirmed hemoglobin drop, patient received 1 unit PRBC. Hemoglobin improved to 9.0, stable. -Daily CBC -Monitor for fever spikes -PRBC if hemoglobin drops below 7 -Ordered type and screen #Intrahepatic biliary tract dilation Likely due to IBD versus cholelithiasis. Patient denies any right upper quadrant pain and Navarrete sign was negative. Patient's LFTs were unremarkable. Old CT findings were consistent with intrahepatic biliary tract dilation however not worked up in the outpatient setting. -GI recommended that we may need MRCP before discharge once her colon inflammation has settled #Incidental finding 10 mm pulmonary nodule lingular segment Remote history of smoking few cigarettes every day quit many years ago. -Outpatient follow-up #Hyperglycemia Likely due to steroids. A1c 5.2% -Monitor Diet: Full liquid diet GI prophylaxis: Protonix IV daily DVT prophylaxis: SCDs CODE STATUS: Full code Plan of care discussed with senior resident Dr. Mackenzie PGY?[address] Bliss. Ridge Hackett MD PGY-1 Attending Provider Attestation/Addendum I attest that I was physically present for the evaluation, physical examination, lab and imaging review of the patient with the residents. I discussed the case with the residents and agree with the findings and plans of care as documented above. At bedside today, patient states he is feeling better. Her pain has been well- controlled. She was eager to have her diet. Continues to be on mesalamine, azathioprine and steroid. Continue to be on gentle IV hydration for hyponatremia. Electrolytes were repleted as needed. Gastroenterology following. Shannon Bliss MD
--- NOTE | 2024-12-19 20:32 | ESPR_ITS ---
Documentation for date of: 12/19/24 Subjective Subjective Interval history: Hemoglobin hematocrit 9.2 and 27.5 patient continues to have abdominal pain and discomfort diarrhea improving Exam Vital Signs Temp Pulse Resp BP Pulse Ox O2 Del Method 97.1 F 94 18 109/68 95 Room Air 12/19/24 20:00 12/19/24 20:00 12/19/24 20:00 12/19/24 20:00 12/19/24 20:00 12/19/24 20:00 Constitutional Comments: Clinically improving alert and oriented Routine Respiratory Exam Comments: Normal to auscultation Routine Abdominal Exam Comments: Tender positive bowel sounds Objective Labs 12/19/24 04:40 12/19/24 04:40 Labs: Laboratory Results - last 24 hr 12/17/24 12/18/24 12/19/24 21:53 18:21 01:22 WBC RBC Hgb 9.0 L D Hct 26.9 L MCV MCH MCHC RDW Std Deviation Plt Count Neut % (Auto) Lymph % (Auto) [place] % (Auto) Eos % (Auto) Baso % (Auto) Neut # (Auto) Lymph # (Auto) [place] # (Auto) Eos # (Auto) Baso # (Auto) Immature Gran # (Auto) Absolute Nucleated RBC Immature Gran % Nucleated RBC % Sodium Potassium Chloride Carbon Dioxide Anion Gap BUN Creatinine Estim Creat Clear Calc eGFR BUN/Creatinine Ratio Glucose Calculated Osmolality Calcium Phosphorus Magnesium Stool for White Cells 3+ A Blood Type O Positive Antibody Screen NEGATIVE Crossmatch See Detail Blood Bank Wristband ID Yes 12/19/24 04:40 WBC 11.2 H RBC 3.14 L Hgb 9.2 L Hct 27.5 L MCV 88 MCH 29.3 MCHC 33.5 RDW Std Deviation 46.2 Plt Count 466 H Neut % (Auto) 82 H Lymph % (Auto) 12 [place] % (Auto) 3 Eos % (Auto) 1 Baso % (Auto) 1 Neut # (Auto) 9.1 H Lymph # (Auto) 1.4 [place] # (Auto) 0.3 Eos # (Auto) 0.1 Baso # (Auto) 0.1 Immature Gran # (Auto) 0.23 H Absolute Nucleated RBC 0.00 Immature Gran % 2 H Nucleated RBC % 0 Sodium 131 L Potassium 3.6 Chloride 98 Carbon Dioxide 25.6 Anion Gap 7 BUN 7 L Creatinine 0.3 L Estim Creat Clear Calc 148.6 eGFR > 60 BUN/Creatinine Ratio 23 H Glucose 76 D Calculated Osmolality 259 L Calcium 8.1 L Phosphorus 2.5 Magnesium 1.6 Stool for White Cells Blood Type Antibody Screen Crossmatch Blood Bank Wristband ID Impressions Impression: # Acute exacerbation of the underlying inflammatory bowel disease # Pain abdomen # Significant drop in hemoglobin hematocrit Plan IV steroids to continue Clear liquid diet in the morning Will consider colonoscopy prior to discharge Assessment & Plan A&P Narrative # Acute exacerbation of the underlying inflammatory bowel disease not responsive to conservative management at home # Grossly abnormal CT scan of the abdomen and pelvis # Abnormal CT scan of the abdomen and pelvis # Leukocytosis Plan Admit inpatient Fecal calprotectin ANCA antibody CRP IV Solu-Medrol 40 mg IV push every 12 Azathioprine 50 mg once a day Clear liquid diet Start the mesalamine Will follow the patient closely IV fluids Thank you very much for the opportunity to participate in the care of this patient Time Spent With Patient Time: Total time spent is greater than 50% in coordination of care (as documented) at patient's floor/unit and/or counseling patient:
[2024-12-20] VITALS (7 sets, daily range): BP systolic 101–118; BP diastolic 61–73; PULSE 81–95; RESP 16–19; TEMP 36–36.3; O2SAT 95–98
[2024-12-20] MEDS: MESALAMINE 250 MG CAPSULE.ER 1000 MG PO ×4 (05:28→20:52)
[2024-12-20 06:10] LABS: Basophils # (Auto) 0.1 Thou/mm3 (0.0-0.2); Basophils % (Auto) 1 % (0-2.5); Eosinophils % (Auto) 0 % (0-10); Hematocrit 27.1 % (36.0-46.0); Hemoglobin 9.1 g/dL (12.0-16.0); Immature Granulocytes % (Auto) 2 % (0-0); Immature Granulocytes Auto 0.15 Thou/mm3 (0.00-0.00); Lymphocytes # (Auto) 0.8 Thou/mm3 (1.0-4.8); Lymphocytes % (Auto) 11 % (10-50); Mean Corpuscular HGB Conc 33.6 g/dl (31.0-37.0); Mean Corpuscular Hemoglobin 29.4 pg (25.0-35.0); Mean Corpuscular Volume 88 fL (80-100); Monocytes # (Auto) 0.2 Thou/mm3 (0.0-0.8); Monocytes % (Auto) 2 % (0-12); Neutrophils # (Auto) 6.5 Thou/mm3 (1.8-7.7); Neutrophils % (Auto) 84 % (37-80); Nucleated Red Blood Cell % 0 /100 WBC (0); Platelet Count 388 Thou/mm3 (140-440); RDW Standard Deviation 47.1 fL (36.4-46.3); Red Blood Count 3.09 Miln/mm3 (4.00-5.20); White Blood Count 7.8 Thou/mm3 (3.6-11.0)
[2024-12-20 06:28] LABS: Anion Gap 6 (7-16); BUN/Creatinine Ratio 27 Ratio (12-20); Blood Urea Nitrogen 8 mg/dL (9-23); Calcium 8.2 mg/dL (8.3-10.6); Chloride 99 mMol/L (98-107); Creatinine (Component) 0.3 mg/dL (0.6-1.3); Estimated Creatinine Clearance 167.6 mL/min (>60); Glucose 106 mg/dL (74-106); Osmolality,Calculated 266 (275-295); Phosphorous 3.3 mg/dL (2.4-5.1); Potassium 3.8 mMol/L (3.4-5.1); Sodium 134 mMol/L (136-145); eGFR > 60 See Note
[2024-12-20 06:51] LABS: C-Reactive Protein 31.3 mg/dL (0.0-0.9)
[2024-12-20] MEDS: azaTHIOprine 50 MG TABLET PO ×2 (08:14→20:52)
[2024-12-20] MEDS: PANTOPRAZOLE INJ 40 MG VIAL IVP (08:15)
--- NOTE | 2024-12-20 13:19 | ESPR_ITS ---
<Statement entered by Mohamud Mackenzie MD - 12/20/24 14:35> I saw and examined the patient, and I agree with current management stated by Dr Jesus Manuel Carlos MD,PGY1. Plan of care was discussed with the attending physician and resident physician. Disclaimer: Despite multiple revisions, due to the dictation software being used, the document bellow may not be free of grammatical errors including phonetic/typographic errors. However, this does not deter from our commitment to providing health care in the patient's best interest in mind. Dr. Avril MD, PGY 2 Documentation for date of: 12/20/24 Subjective Subjective Interval history: No overnight events. Patient seen and examined at bedside. Reports overall feeling well, tolerating diet well, bowel movements nonbloody and nonpainful. Patient placed back on IV steroids for 1 day due to increase in bowel movements. Follow-up with GI. If patient continues to do well, plan for DC tomorrow. Exam Vital Signs Temp Pulse Resp BP Pulse Ox O2 Del Method 97.0 F 90 17 118/72 96 Room Air 12/20/24 12:00 12/20/24 12:00 12/20/24 12:00 12/20/24 12:00 12/20/24 12:00 12/20/24 12:00 Narrative Exam Gen: AAOx3, lean female. Saturating well on room air. HEENT: NCAT, MATT, EOMI, moist mucous membrane, no JVD CVS: Normal S1, S2. Sinus tachycardia with regular rhythm. No MRG Resp: CTAB, moving air well. No crackles or wheezes are heard. Abd: Soft, mild diffuse abdominal tenderness, improved. Active bowel sounds. MSK: Moves extremities x4, no edema or rash noted Neuro: extract mixer grossly normal. No focal deficits noted. Psych: Appropriate mood and affect Objective Labs 12/21/24 05:26 12/21/24 05:26 Labs: Laboratory Results - last 24 hr 12/20/24 04:30 WBC 7.8 RBC 3.09 L Hgb 9.1 L Hct 27.1 L MCV 88 MCH 29.4 MCHC 33.6 RDW Std Deviation 47.1 H Plt Count 388 D Neut % (Auto) 84 H Lymph % (Auto) 11 [place] % (Auto) 2 Eos % (Auto) 0 Baso % (Auto) 1 Neut # (Auto) 6.5 Lymph # (Auto) 0.8 L [place] # (Auto) 0.2 Eos # (Auto) 0.0 Baso # (Auto) 0.1 Immature Gran # (Auto) 0.15 H Absolute Nucleated RBC 0.00 Immature Gran % 2 H Nucleated RBC % 0 Sodium 134 L Potassium 3.8 Chloride 99 Carbon Dioxide 29.0 Anion Gap 6 L BUN 8 L Creatinine 0.3 L Estim Creat Clear Calc 167.6 eGFR > 60 BUN/Creatinine Ratio 27 H Glucose 106 Calculated Osmolality 266 L Calcium 8.2 L Phosphorus 3.3 Magnesium 2.0 C-Reactive Prot, Quant 31.3 H Quality Measures Quality Measures VTE prophylaxis Assessment & Plan Assessment Current Active Medications: Generic Name Dose Route Start Last Admin Trade Name Freq PRN Reason Stop Dose Admin Acetaminophen 650 mg 12/17/24 15:27 Acetaminophen 325 Mg Tablet PO 01/16/25 15:26 Q6H PRN Fever >100.3 or pain Protocol Hydrocodone Bitart/Acetaminophen 1 tab 12/17/24 15:27 12/19/24 19:46 Hydrocodone/Apap 5/325 Tablet PO 12/22/24 15:26 1 tab Q4HR PRN Administration PAIN SCALE 4-6 (Moderate Azathioprine 50 mg 12/17/24 21:00 12/20/24 08:14 Azathioprine 50 Mg Tablet PO 01/16/25 20:59 50 mg BID CAMERON Administration Mesalamine 1,000 mg 12/17/24 17:00 12/20/24 11:03 Mesalamine 250 Mg Capsule.Er PO 01/16/25 16:59 1,000 mg QID CAMERON Administration Methylprednisolone Sodium Succinate 40 mg 12/20/24 09:00 12/20/24 08:15 Methylprednisolone Sod Succ 40 Mg Vial IV 12/27/24 08:59 40 mg Q12HR CAMERON Administration Morphine Sulfate 2 mg 12/17/24 15:27 Morphine Sulf Inj 10 Mg/Ml Vial IVP 12/22/24 15:26 Q4H PRN PAIN SCALE 7-10 (Severe Ondansetron HCl 4 mg 12/17/24 15:27 Ondansetron Inj 2 Mg/Ml Inj 2 Ml IV 01/16/25 15:26 Q6H PRN NAUSEA OR VOMITING Protocol Pantoprazole Sodium 40 mg 12/17/24 15:30 12/20/24 08:15 Pantoprazole Inj 40 Mg Vial IVP 01/16/25 15:29 40 mg QDAY CAMERON Administration Prednisone 15 mg 12/19/24 10:45 12/19/24 21:04 Prednisone 5 Mg Tablet PO 12/26/24 10:45 15 mg BID CAMERON Administration Sennosides 1 tab 12/17/24 15:27 Senna Tablet PO 01/16/25 15:26 QDAY PRN constipation Protocol Plan 59-year-old female with past medical history of IBD/ulcerative colitis on mesalamine and steroid therapy presented to the ED on 12/17/2024 with chief complaint of right lower quadrant intractable pain and diarrhea x1 day. Patient is admitted for further workup and management of flare of ulcerative colitis and hyponatremia. #Inflammatory bowel disease #Ulcerative colitis, flare #Intractable right lower quadrant pain, resolved Patient presented with intractable right lower quadrant pain and diarrhea from last 1 day.She reported that she stopped her IBD therapy for at least 5 months and restarted her medications on November 30, [address] Gamboa as outpatient and possible reason for her discontinuation was that she felt that she is getting better and she should stop her medications. She was not feeling nauseous however reported to have vomiting a few days ago. Patient reported to had appetite loss from a week and reported to have decreased p.o. intake including water intake. Denied any chest pain, fever/chills, shortness of breath, burning/dysuria. Colonoscopy was done in the past which confirmed IBD. In the ED, patient was hypotensive tachycardic breathing normally and afebrile. She was saturating well on room air. Labs were significant for leukocytosis, normocytic anemia, thrombocytosis. CHEM panel was significant for hypoosmolar hyponatremia sodium 124, hypokalemia 3.0 and hypochloremia 85. Kidney functions were stable BUN 12 and creatinine 0.4. Blood glucose 121. Lactic acid was unremarkable. Lipase was negative. Procalcitonin negative. UA showed mild ketones. Lactic acid and lipase negative. CT abdomen pelvis was significant for a pericardial effusion 7 mm cholelithiasis contracted gallbladder intrahepatic biliary tract dilation common hepatic duct 8 mm nodular thickening left adrenal gland 4 mm lower pole right renal calculus significant colonic ileus with diffuse wall thickening of the colon advanced degenerative disc disease L5-S1. EKG showed sinus tachycardia with QTc 451. Patient received IV fluids 1 bolus and KCl 40 mEq IV and Zofran x 1 in the ED. Plan to transition to oral steroids tomorrow, possible DC -Started mesalamine 1 g 4 times daily, azathioprine 50 mg twice daily -IV Solu-Medrol 40 mg every 12 hours -Consulted GI appreciate recommendations -Replete electrolytes as necessary -Ordered acetaminophen, [place] and morphine for pain management -IV Zofran as needed for nausea and vomiting -GI considering inpatient versus outpatient colonoscopy -Full liquid diet #Leukocytosis likely related to steroid intake #Normocytic anemia #Thrombocytosis Likely related to malabsorption WBC 16.1 and hemoglobin 9.6, platelets 626 Patient hemoglobin dropped to 7.5, and notable drop in all cell lines. Possible dilutional. Repeat CBC confirmed hemoglobin drop, patient received 1 unit PRBC. Hemoglobin improved to 9.0, stable. -Daily CBC -Monitor for fever spikes -PRBC if hemoglobin drops below 7 -Ordered type and screen #Hypoosmolar hyponatremia and hypochloremia, improving Likely related to decreased p.o. intake Sodium 124, osmolarity 250. Asymptomatic. Improved with IVF, rate reduced -Daily labs #Electrolyte disturbance #Hypokalemia Likely related to decreased p.o. intake Potassium was 3.0. IV 40 mEq KCl given x 1 in 20 mEq p.o. -Follow-up with CMP daily #Intrahepatic biliary tract dilation Likely due to IBD versus cholelithiasis. Patient denies any right upper quadrant pain and Navarrete sign was negative. Patient's LFTs were unremarkable. Old CT findings were consistent with intrahepatic biliary tract dilation however not worked up in the outpatient setting. -GI recommended that we may need MRCP before discharge once her colon inflammation has settled #Incidental finding 10 mm pulmonary nodule lingular segment Remote history of smoking few cigarettes every day quit many years ago. -Outpatient follow-up #Hyperglycemia Likely due to steroids. A1c 5.2% -Monitor Diet: Full liquid diet GI prophylaxis: Protonix IV daily DVT prophylaxis: SCDs CODE STATUS: Full code Plan of care discussed with senior resident Dr. Mackenzie PGY?[address] Perez. Ridge Hackett MD PGY-1 Attending Provider Attestation/Addendum I have examined the patient, reviewed labs and imaging findings, discussed the case with the resident(s), and reviewed entered orders. I agree with the plan of care as outlined in this note, with these additional summaries/recommendations: Patient seen at bedside. No acute overnight events. Patient reports she had a bowel movement today and denies seeing blood although still reporting moderate abdominal pain and partially tolerating full liquid diet. Continue IV Solu- Medrol, Pent[place], and Imuran. Gastroenterology following. Discussed with patient that we will continue these treatments and advance diet as tolerated. Repeat hematology and chemistry panel in AM. Dr. Perez
--- NOTE | 2024-12-20 21:00 | PD.IMPROG ---
Documentation for date of: 12/20/24 Subjective Subjective Interval history: Gradually improving on IV steroids Exam Vital Signs Temp Pulse Resp BP Pulse Ox O2 Del Method 97.4 F 85 17 113/73 95 Room Air 12/20/24 20:00 12/20/24 20:00 12/20/24 20:00 12/20/24 20:00 12/20/24 20:00 12/20/24 20:00 Constitutional Comments: Alert oriented Routine Respiratory Exam Comments: Normal to auscultation Routine Abdominal Exam Comments: Soft nontender Objective Labs 12/20/24 04:30 12/20/24 04:30 Labs: Laboratory Results - last 24 hr 12/20/24 04:30 WBC 7.8 RBC 3.09 L Hgb 9.1 L Hct 27.1 L MCV 88 MCH 29.4 MCHC 33.6 RDW Std Deviation 47.1 H Plt Count 388 D Neut % (Auto) 84 H Lymph % (Auto) 11 [place] % (Auto) 2 Eos % (Auto) 0 Baso % (Auto) 1 Neut # (Auto) 6.5 Lymph # (Auto) 0.8 L [place] # (Auto) 0.2 Eos # (Auto) 0.0 Baso # (Auto) 0.1 Immature Gran # (Auto) 0.15 H Absolute Nucleated RBC 0.00 Immature Gran % 2 H Nucleated RBC % 0 Sodium 134 L Potassium 3.8 Chloride 99 Carbon Dioxide 29.0 Anion Gap 6 L BUN 8 L Creatinine 0.3 L Estim Creat Clear Calc 167.6 eGFR > 60 BUN/Creatinine Ratio 27 H Glucose 106 Calculated Osmolality 266 L Calcium 8.2 L Phosphorus 3.3 Magnesium 2.0 C-Reactive Prot, Quant 31.3 H Impressions Impression: # Acute exacerbation of the underlying inflammatory bowel disease gradually improving on IV steroids Continue current management Possible discharge in a.m. Will schedule outpatient colonoscopy Assessment & Plan A&P Narrative # Acute exacerbation of the underlying inflammatory bowel disease not responsive to conservative management at home # Grossly abnormal CT scan of the abdomen and pelvis # Abnormal CT scan of the abdomen and pelvis # Leukocytosis Plan Admit inpatient Fecal calprotectin ANCA antibody CRP IV Solu-Medrol 40 mg IV push every 12 Azathioprine 50 mg once a day Clear liquid diet Start the mesalamine Will follow the patient closely IV fluids Thank you very much for the opportunity to participate in the care of this patient Time Spent With Patient Time: Total time spent is greater than 50% in coordination of care (as documented) at patient's floor/unit and/or counseling patient:
[2024-12-21] VITALS (7 sets, daily range): BP systolic 107–129; BP diastolic 71–76; PULSE 77–110; RESP 16–17; TEMP 36–36.6; O2SAT 94–96; BMI 24.8
[2024-12-21] MEDS: MESALAMINE 250 MG CAPSULE.ER 1000 MG PO ×3 (05:37→16:14)
[2024-12-21 06:06] LABS: Basophils # (Auto) 0.1 Thou/mm3 (0.0-0.2); Basophils % (Auto) 1 % (0-2.5); Eosinophils % (Auto) 0 % (0-10); Hemoglobin 9.2 g/dL (12.0-16.0); Immature Granulocytes % (Auto) 2 % (0-0); Immature Granulocytes Auto 0.15 Thou/mm3 (0.00-0.00); Lymphocytes # (Auto) 0.7 Thou/mm3 (1.0-4.8); Lymphocytes % (Auto) 8 % (10-50); Mean Corpuscular HGB Conc 32.9 g/dl (31.0-37.0); Mean Corpuscular Hemoglobin 29.3 pg (25.0-35.0); Mean Corpuscular Volume 89 fL (80-100); Monocytes # (Auto) 0.2 Thou/mm3 (0.0-0.8); Monocytes % (Auto) 2 % (0-12); Neutrophils # (Auto) 7.8 Thou/mm3 (1.8-7.7); Neutrophils % (Auto) 88 % (37-80); Nucleated Red Blood Cell % 0 /100 WBC (0); Platelet Count 432 Thou/mm3 (140-440); RDW Standard Deviation 48.4 fL (36.4-46.3); Red Blood Count 3.14 Miln/mm3 (4.00-5.20); White Blood Count 8.9 Thou/mm3 (3.6-11.0)
[2024-12-21 06:51] LABS: Alanine Aminotransferase 10 U/L (10-49); Albumin, Serum 2.7 gm/dL (3.4-4.8); Albumin/Globulin Ratio 1.2 (1.2-2.2); Alkaline Phosphatase 91 U/L (46-116); Anion Gap 7 (7-16); Aspartate Amino Transferase < 8 U/L (0-34); BUN/Creatinine Ratio 27 Ratio (12-20); Bilirubin,Total 0.5 mg/dL (0.3-1.2); Blood Urea Nitrogen 8 mg/dL (9-23); Calcium 8.4 mg/dL (8.3-10.6); Calcium (Corrected) 9.4 mg/dL (8.5-10.1); Carbon Dioxide 28.3 mMol/L (20.0-31.0); Chloride 98 mMol/L (98-107); Creatinine (Component) 0.3 mg/dL (0.6-1.3); Estimated Creatinine Clearance 165.4 mL/min (>60); Globulin 2.2 gm/dL (2.3-3.5); Glucose 121 mg/dL (74-106); Osmolality,Calculated 265 (275-295); Phosphorous 3.3 mg/dL (2.4-5.1); Potassium 3.9 mMol/L (3.4-5.1); Sodium 133 mMol/L (136-145); Total Protein 4.9 gm/dL (5.7-8.2); eGFR > 60 See Note
[2024-12-21] MEDS: azaTHIOprine 50 MG TABLET PO (08:01)
[2024-12-21] MEDS: PANTOPRAZOLE INJ 40 MG VIAL IVP (08:02)
[2024-12-21] MEDS: HYDROcodone/APAP 5/325 TABLET 1 TAB PO ×2 (12:32→16:28)
--- NOTE | 2024-12-21 14:21 | PD.RESPRO ---
Documentation for date of: 12/21/24 Exam Vital Signs Temp Pulse Resp BP Pulse Ox O2 Del Method 96.8 F 83 16 129/73 94 L Room Air 12/21/24 12:00 12/21/24 12:00 12/21/24 12:00 12/21/24 12:00 12/21/24 12:00 12/21/24 12:00 Objective Labs 12/21/24 05:26 12/21/24 05:26 Labs: Laboratory Results - last 24 hr 12/21/24 05:26 WBC 8.9 RBC 3.14 L Hgb 9.2 L Hct 28.0 L MCV 89 MCH 29.3 MCHC 32.9 RDW Std Deviation 48.4 H Plt Count 432 D Neut % (Auto) 88 H Lymph % (Auto) 8 L [place] % (Auto) 2 Eos % (Auto) 0 Baso % (Auto) 1 Neut # (Auto) 7.8 H Lymph # (Auto) 0.7 L [place] # (Auto) 0.2 Eos # (Auto) 0.0 Baso # (Auto) 0.1 Immature Gran # (Auto) 0.15 H Absolute Nucleated RBC 0.00 Immature Gran % 2 H Nucleated RBC % 0 Sodium 133 L Potassium 3.9 Chloride 98 Carbon Dioxide 28.3 Anion Gap 7 BUN 8 L Creatinine 0.3 L Estim Creat Clear Calc 165.4 eGFR > 60 BUN/Creatinine Ratio 27 H Glucose 121 H Calculated Osmolality 265 L Calcium 8.4 Corrected Calcium 9.4 Phosphorus 3.3 Magnesium 2.0 Total Bilirubin 0.5 AST < 8 ALT 10 Alkaline Phosphatase 91 Total Protein 4.9 L Albumin 2.7 L Globulin 2.2 L Albumin/Globulin Ratio 1.2 Quality Measures Quality Measures VTE prophylaxis Assessment & Plan Assessment Current Active Medications: Generic Name Dose Route Start Last Admin Trade Name Freq PRN Reason Stop Dose Admin Acetaminophen 650 mg 12/17/24 15:27 Acetaminophen 325 Mg Tablet PO 01/16/25 15:26 Q6H PRN Fever >100.3 or pain Protocol Hydrocodone Bitart/Acetaminophen 1 tab 12/17/24 15:27 12/21/24 12:32 Hydrocodone/Apap 5/325 Tablet PO 12/22/24 15:26 1 tab Q4HR PRN Administration PAIN SCALE 4-6 (Moderate Azathioprine 50 mg 12/17/24 21:00 12/21/24 08:01 Azathioprine 50 Mg Tablet PO 01/16/25 20:59 50 mg BID CAMERON Administration Mesalamine 1,000 mg 12/17/24 17:00 12/21/24 11:55 Mesalamine 250 Mg Capsule.Er PO 01/16/25 16:59 1,000 mg QID CAMERON Administration Methylprednisolone Sodium Succinate 40 mg 12/20/24 09:00 12/21/24 08:04 Methylprednisolone Sod Succ 40 Mg Vial IV 12/27/24 08:59 40 mg Q12HR CAMERON Administration Morphine Sulfate 2 mg 12/17/24 15:27 Morphine Sulf Inj 10 Mg/Ml Vial IVP 12/22/24 15:26 Q4H PRN PAIN SCALE 7-10 (Severe Ondansetron HCl 4 mg 12/17/24 15:27 Ondansetron Inj 2 Mg/Ml Inj 2 Ml IV 01/16/25 15:26 Q6H PRN NAUSEA OR VOMITING Protocol Pantoprazole Sodium 40 mg 12/17/24 15:30 12/21/24 08:02 Pantoprazole Inj 40 Mg Vial IVP 01/16/25 15:29 40 mg QDAY CAMERON Administration Prednisone 15 mg 12/19/24 10:45 12/19/24 21:04 Prednisone 5 Mg Tablet PO 12/26/24 10:45 15 mg BID CAMERON Administration Sennosides 1 tab 12/17/24 15:27 Senna Tablet PO 01/16/25 15:26 QDAY PRN constipation Protocol
--- NOTE | 2024-12-21 15:54 | ESDS_ITS ---
<Statement entered by Mohamud Mackenzie MD - 12/21/24 17:22> I saw and examined the patient, and I agree with current management stated by Dr Lew MD,PGY1. Plan of care was discussed with the attending physician and resident physician. Disclaimer: Despite multiple revisions, due to the dictation software being used, the document bellow may not be free of grammatical errors including phonetic/typographic errors. However, this does not deter from our commitment to providing health care in the patient's best interest in mind. Dr. Avril MD, PGY 2 Planned Discharge Date 12/21/24 DS: Providers Provider Date of admission: 12/17/24 15:27 Primary care physician: Marcia Bartlett([facility] Admitting Provider: Shannon Bliss MD Attending Provider on Admission: Maxime Perez MD Consults: 12/17/24 14:45 Consult to Gastroenterology Stat Comment: Consulting Provider: Haritha Gamboa 12/17/24 15:36 Referral Registered Dietitian Stat Comment: Attending Provider on DC: Maxime ePrez MD Discharging Provider: Ridge Hackett MD DS: Diagnosis Problem List Completed Was Problem List Reviewed/Reconciled?: Yes Hospital Course Hospital Course Hospital course: 59-year-old female with past medical history of IBD/ulcerative colitis on mesalamine and steroid therapy presented to the ED on 12/17/2024 with chief complaint of right lower quadrant intractable pain and diarrhea x1 day. She reported that she stopped taking her IBD therapy for at least 5 months and restarted her medications on November 30, [address] Gamboa as outpatient. Possible reason for her discontinuation was that she felt that she is getting better and she should stop her medications. A week prior to admission she noticed on bloody diarrhea. On admission, denied any blood in the stool that day however reported had 4 episodes of watery stools. She was complaining of excruciating pain on examination. She was not feeling nauseous however reported to have vomiting. Patient reported to had appetite loss, decreased p.o. intake including water intake. Denied any chest pain, fever/chills, shortness of breath, burning/dysuria. Labs were significant for leukocytosis, normocytic anemia, thrombocytosis. CHEM panel was significant for hypoosmolar hyponatremia sodium 124, hypokalemia 3.[address] abdomen pelvis was significant for a 10 mm pulmonary nodule lingular segment, atelectasis in the left lobe, pericardial effusion, significant colonic ileus with diffuse wall thickening of the colon, advanced degenerative disc disease L5-S1. Patient was admitted for further workup and management of flare of ulcerative colitis and hyponatremia. Patient was started on IV steroids, azathioprine, mesalamine. Improvement during course of hospital stay. Diet was able to be advanced to low residue diet. During course of stay, patient developed acute drop in hemoglobin requiring 1 unit PRBC transfusion. Hemoglobin stable since then. Patient did not have bloody bowel movements, diarrhea improved during hospital stay. Patient medically stable and cleared for discharge. Discharge plan: You have been started on the following medications: -Azathioprine 50 mg twice daily -Protonix 40 mg once daily -Humbird 5 as needed for pain up to twice daily, 10 pills total -Prednisone taper: Begin with 15 mg twice daily for 7 days. Then 10 mg twice daily for 7 days. Then 5 mg twice daily for 7 days. Continue taking all other medication as previously prescribed Follow-up with PCP in 1-2 weeks. Follow-up with GI in 1-2 weeks. Recommend a low fiber diet, as tolerated. Return to ED if you have new or worsening symptoms, including bloody bowel movements, significantly increased diarrhea. Diagnoses: #Inflammatory bowel disease #Ulcerative colitis, flare, resolving #Intractable right lower quadrant pain, resolved #Leukocytosis likely related to steroid intake #Normocytic anemia #Thrombocytosis #Hypoosmolar hyponatremia and hypochloremia, improving #Electrolyte disturbance #Hypokalemia #Intrahepatic biliary tract dilation #Incidental finding 10 mm pulmonary nodule lingular segment #Hyperglycemia Plan of care discussed with senior resident Dr. Mackenzie PGY-[address] Perez. Ridge Hackett MD PGY-1 Time Spent with Patient Time attestation: Total time spent providing and/or coordinating discharge services: Exam Vital Signs Temp Pulse Resp BP Pulse Ox O2 Del Method 96.8 F 83 16 129/73 94 L Room Air 12/21/24 12:00 12/21/24 12:00 12/21/24 12:00 12/21/24 12:00 12/21/24 12:00 12/21/24 12:00 Narrative Exam Gen: AAOx3, lean female. Saturating well on room air. HEENT: NCAT, MATT, EOMI, moist mucous membrane, no JVD CVS: Normal S1, S2. Sinus tachycardia with regular rhythm. No MRG Resp: CTAB, moving air well. No crackles or wheezes are heard. Abd: Soft, mild diffuse abdominal tenderness, improved. Active bowel sounds. 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 No focal deficits noted. Psych: Appropriate mood and affect Discharge Plan Plan Patient Disposition: HOME (Self Care) Patient condition on transfer: Stable Care Plan Goals: You have been started on the following medications: -Azathioprine 50 mg twice daily -Protonix 40 mg once daily -Humbird 5 as needed for pain up to twice daily, 10 pills total -Prednisone taper: Begin with 15 mg twice daily for 7 days. Then 10 mg twice daily for 7 days. Then 5 mg twice daily for 7 days. Continue taking all other medication as previously prescribed Follow-up with PCP in 1-2 weeks. Follow-up with GI in 1-2 weeks. Recommend a low fiber diet, as tolerated. Return to ED if you have new or worsening symptoms, including bloody bowel movements, significantly increased diarrhea. Prescriptions/Referrals Prescriptions/Med Rec: New azathioprine 50 mg Tablet 50 mg PO BID 30 Days Qty: 60 0RF prednisone 5 mg Tablet 15 mg PO BID 21 Days Qty: 126 0RF Taper: Prednisone Taper 15 mg TWICE A DAY for 7 Days and 0 Hour 10 mg TWICE A DAY for 7 Days and 0 Hour 5 mg TWICE A DAY for 7 Days and 0 Hour pantoprazole [Protonix] 40 mg tablet,delayed release (DR/EC) 40 mg PO QDAY Qty: 14 0RF hydrocodone-acetaminophen 5-325 mg tablet 1 tab PO BID MDD 2 PRN (Reason: pain) 5 Days Qty: 10 0RF Continued ursodiol 250 MG tablet 250 mg PO TID Qty: 90 mesalamine 500 mg capsule, extended release 1,000 mg PO QID Qty: 30 1RF folic acid 1 mg tablet 1 mg PO QDAY Qty: 90 0RF loperamide 2 mg Capsule 2 mg PO Q6H PRN (Reason: Diarrhea) Discontinued prednisone 5 mg tablet 15 mg PO BID Qty: 90 0RF Taper: Prednisone Taper 15 mg DAILY for 7 Days and 0 Hour 10 mg DAILY for 7 Days and 0 Hour 5 mg DAILY for 7 Days and 0 Hour azathioprine [Imuran] 50 mg tablet 50 mg PO QDAY Referrals: Dhruv([facility])Marcia PA-C [Primary Care Provider] - Haritha Gamboa MD [Physician] - Patient/Caregiver Discharge Instructions Discharge Activity: resume usual activities Other Discharge Activity Instructions:: Follow up with primary care provider within 1 week of discharge Education Materials: Low-Fiber Diet, Colitis Ulcerative Dc, Colitis Ulcerative Lifestyle, Colitis Ulcerative Meds, Understanding Colitis Print Language: Omani Stand Alone Forms: Merary Award Info., Patient Portal Info Letter Discharge Order Discharge Orders: Discharge (Routine); Ordered 12/21/24 Ordered By: Mohamud Mackenzie Quality Discharge Quality Measures VTE prophylaxis MD Attestestation MD Attestation I have examined the patient, reviewed labs and imaging findings, discussed the case with the resident(s), and reviewed entered orders. I agree with the plan of care as outlined in this note. Dr. Perez
[2024-12-22 06:58] LABS: ANCA Screen NEGATIVE (NEGATIVE); Myeloperoxidase Ab <1.0 AI (<1.0); Proteinase-3 Ab <1.0 AI (<1.0)
[2024-12-25 06:42] LABS: Calprotectin, Stool* 2750 mcg/g
== END 2024-12-21 16:48 | disposition home or self-care (01) | DRG 386 ==
LOC: SERX 14:59 → SERHOLD 15:58 → S3NX 20:20
PROVIDERS: Nurse Practitioner Primary Care; Specialist; Student in an Organized Health Care Education/Training Program; Admitting Provider Student in an Organized Health Care Education/Training Program; Emergency Provider Emergency Medicine; PCP Nurse Practitioner Family; Visit Provider Student in an Organized Health Care Education/Training Program
DX: K51.00 Ulcerative (chronic) pancolitis without complications (principal); D62 Acute posthemorrhagic anemia; E87.1 Hypo-osmolality and hyponatremia; K90.9 Intestinal malabsorption, unspecified; I31.39 Other pericardial effusion (noninflammatory); J98.11 Atelectasis; K56.7 Ileus, unspecified; Z87.891 Personal history of nicotine dependence; Z88.6 Allergy status to analgesic agent; E87.6 Hypokalemia; R91.1 Solitary pulmonary nodule; M51.379 Other intervertebral disc degeneration, lumbosacral region without mention of lumbar back pain or lower extremity pain; E87.8 Other disorders of electrolyte and fluid balance, not elsewhere classified; E86.0 Dehydration; T38.0X5A Adverse effect of glucocorticoids and synthetic analogues, initial encounter; D64.89 Other specified anemias; D75.839 Thrombocytosis, unspecified; R73.9 Hyperglycemia, unspecified; K80.20 Calculus of gallbladder without cholecystitis without obstruction; N20.0 Calculus of kidney
CPT/HCPCS: 36415; 74177; 80048; 80053; 80061; 81001; 83036; 83605; 83690; 83735; 83993; 84100; 84145; 84295; 84439; 84443; 85014; 85018; 85025; 85652; 86021; 86036; 86140; 86850; 86900; 86901; 86923; 87015; 87040; 87045; 87046; 87205; 87329; 87493; 87899; 93005; 93225; 96361; 96365; 96372; 96375; 99285; A4649; J0500; J2270; J2470; J2765; J2919; J3475; J3480; J7030; J7040; J7500; J7512; P9016; Q9967; A9270

== ENCOUNTER → 2025-01-02 | Outpatient (CLI) | payer BC, SELFPAY ==
[2025-01-02 17:33] LABS: Basophils % (Auto) 0 % (0-2.5); Eosinophils % (Auto) 0 % (0-10); Hematocrit 27.9 % (36.0-46.0); Hemoglobin 9.2 g/dL (12.0-16.0); Immature Granulocytes % (Auto) 3 % (0-0); Immature Granulocytes Auto 0.43 Thou/mm3 (0.00-0.00); Lymphocytes % (Auto) 7 % (10-50); Mean Corpuscular Volume 88 fL (80-100); Monocytes # (Auto) 0.2 Thou/mm3 (0.0-0.8); Monocytes % (Auto) 1 % (0-12); Neutrophils % (Auto) 88 % (37-80); Nucleated Red Blood Cell # 0.02 Thou/mm3 (0.00-0.00); Nucleated Red Blood Cell % 0 /100 WBC (0); Platelet Count 727 Thou/mm3 (140-440); RDW Standard Deviation 50.7 fL (36.4-46.3); Red Blood Count 3.17 Miln/mm3 (4.00-5.20); White Blood Count 13.6 Thou/mm3 (3.6-11.0)
[2025-01-02 17:42] LABS: Alanine Aminotransferase 12 U/L (10-49); Albumin, Serum 2.9 gm/dL (3.4-4.8); Albumin/Globulin Ratio 1.5 (1.2-2.2); Alkaline Phosphatase 102 U/L (46-116); Anion Gap 10 (7-16); Aspartate Amino Transferase 10 U/L (0-34); BUN/Creatinine Ratio 43 Ratio (12-20); Bilirubin,Total 0.6 mg/dL (0.3-1.2); Blood Urea Nitrogen 13 mg/dL (9-23); Calcium 7.7 mg/dL (8.3-10.6); Calcium (Corrected) 8.6 mg/dL (8.5-10.1); Carbon Dioxide 29.7 mMol/L (20.0-31.0); Chloride 86 mMol/L (98-107); Creatinine (Component) 0.3 mg/dL (0.6-1.3); Glucose 119 mg/dL (74-106); Osmolality,Calculated 254 (275-295); Potassium 4.1 mMol/L (3.4-5.1); Sodium 126 mMol/L (136-145); Total Protein 4.9 gm/dL (5.7-8.2); eGFR > 60 See Note
== END | disposition home or self-care (01) ==
LOC: COPL 16:17
PROVIDERS: PCP Specialist; Referring Provider Specialist; Visit Provider Specialist
DX: R19.7 Diarrhea, unspecified (principal); R10.9 Unspecified abdominal pain; K83.9 Disease of biliary tract, unspecified
CPT/HCPCS: 36415; 80053; 85025

== ENCOUNTER → 2025-01-09 | Outpatient (CLI) | payer BC, SELFPAY ==
[2025-01-09 17:40] LABS: Basophils # (Auto) 0.1 Thou/mm3 (0.0-0.2); Basophils % (Auto) 1 % (0-2.5); Eosinophils % (Auto) 0 % (0-10); Hematocrit 25.1 % (36.0-46.0); Hemoglobin 8.4 g/dL (12.0-16.0); Immature Granulocytes % (Auto) 2 % (0-0); Immature Granulocytes Auto 0.12 Thou/mm3 (0.00-0.00); Lymphocytes # (Auto) 0.8 Thou/mm3 (1.0-4.8); Lymphocytes % (Auto) 10 % (10-50); Mean Corpuscular HGB Conc 33.5 g/dl (31.0-37.0); Mean Corpuscular Hemoglobin 29.3 pg (25.0-35.0); Mean Corpuscular Volume 88 fL (80-100); Monocytes # (Auto) 0.2 Thou/mm3 (0.0-0.8); Monocytes % (Auto) 2 % (0-12); Neutrophils # (Auto) 6.5 Thou/mm3 (1.8-7.7); Neutrophils % (Auto) 85 % (37-80); Nucleated Red Blood Cell % 0 /100 WBC (0); Platelet Count 597 Thou/mm3 (140-440); RDW Standard Deviation 53.1 fL (36.4-46.3); Red Blood Count 2.87 Miln/mm3 (4.00-5.20); White Blood Count 7.7 Thou/mm3 (3.6-11.0)
[2025-01-09 18:00] LABS: Alanine Aminotransferase 16 U/L (10-49); Albumin, Serum 2.6 gm/dL (3.4-4.8); Albumin/Globulin Ratio 1.3 (1.2-2.2); Alkaline Phosphatase 114 U/L (46-116); Anion Gap 6 (7-16); Aspartate Amino Transferase 12 U/L (0-34); BUN/Creatinine Ratio 30 Ratio (12-20); Bilirubin,Total 0.6 mg/dL (0.3-1.2); Blood Urea Nitrogen 9 mg/dL (9-23); Calcium 8.1 mg/dL (8.3-10.6); Calcium (Corrected) 9.2 mg/dL (8.5-10.1); Carbon Dioxide 29.2 mMol/L (20.0-31.0); Chloride 89 mMol/L (98-107); Creatinine (Component) 0.3 mg/dL (0.6-1.3); Glucose 105 mg/dL (74-106); Osmolality,Calculated 248 (275-295); Potassium 3.6 mMol/L (3.4-5.1); Sodium 124 mMol/L (136-145); Total Protein 4.6 gm/dL (5.7-8.2); eGFR > 60 See Note
== END | disposition home or self-care (01) ==
LOC: COPL 17:05
PROVIDERS: PCP Specialist; Referring Provider Specialist; Visit Provider Specialist
DX: K62.5 Hemorrhage of anus and rectum (principal); K80.80 Other cholelithiasis without obstruction; K58.0 Irritable bowel syndrome with diarrhea
CPT/HCPCS: 36415; 80053; 85025

== ENCOUNTER 2025-01-11 16:43 | Inpatient (IN) | payer BC, SELFPAY ==
[2025-01-11 16:45] VITALS: PULSE 118; RESP 16; O2SAT 97; BMI 29.2
[2025-01-11 16:48] VITALS: BP 90/61; PULSE 108; RESP 15; TEMP 36.7; O2SAT 99
--- NOTE | 2025-01-11 16:51 | PD.EDWEAK ---
ED Weakness RME/HPI General Chief complaint: Weakness Stated complaint: WEAKNESS Time Seen by Provider: 01/11/25 16:49 Arrival date/time: 01/11/25 16:43 RME / HPI RME / HPI Narrative: 59-year-old female patient with significant history of IBD, currently on mesalamine, was sent to us by Dr. Gamboa, GI specialist, for further evaluation. Patient's been having worsening weakness for the last 1 week, having loose stools for the last 3 weeks, according to her color is green. Not black or tarry. Patient also complained of abdominal discomfort. Denies any fever. Denies any vomiting. Denies any other complaints. Related Data Home Medications ?Medication ?Instructions ?Recorded ?Confirmed ursodiol 250 mg tablet 250 mg PO TID ##90 02/17/17 12/20/24 loperamide 2 mg capsule 2 mg PO Q6H PRN Diarrhea 12/20/24 12/20/24 Previous Rx's ?Medication ?Instructions ?Recorded folic acid 1 mg tablet 1 mg PO QDAY #90 tabs 06/07/23 mesalamine 500 mg capsule,extended 1,000 mg (2 x 500 mg) PO QID UC 06/07/23 release #30 caps azathioprine 50 mg tablet 50 mg PO BID 30 days #60 tabs 12/21/24 pantoprazole 40 mg tablet,delayed 40 mg PO QDAY #14 tabs 12/21/24 release (Protonix) Allergies Allergy/AdvReac Type Severity Reaction Status Date / Time ciprofloxacin (From Cipro) Allergy Intermediate Gastrointestinal Verified 12/17/24 10:35 Upset levofloxacin Allergy Intermediate Rash Verified 12/17/24 10:35 ibuprofen AdvReac Intermediate Gastrointestinal Verified 12/17/24 10:35 Upset Review of Systems Review of Systems Narrative Review of Systems: Review of system reviewed and within normal limits except mentioned in HPI ED Exam Narrative Physical exam: VITAL SIGNS: Reviewed. GENERAL APPEARANCE: Alert and interactive, follows commands, no acute distress, HEAD AND FACE: Non-traumatic. ENT: PERRL, pale conjunctiva, eyelid no trauma, Mucous membrane moist. NECK: Supple, nontender, no nuchal rigidity. CHEST: No tenderness, no crepitus, no paradoxical movement, no retractions. LUNGS: Clear, well ventilated, symmetric, no rales, no wheezing, no ronchi, no stridor, good breath sounds bilaterally. HEART: Regular rate, regular rhythm, no murmur, no gallops. ABDOMEN: Soft, positive bowel sounds, nondistended, no guarding, diffuse tenderness, no rebound, no masses, RECTAL: Deferred. GENITAL: Deferred. NEUROLOGICAL: Gross motor function intact sensory function intact, Appropriate for age. MUSCULOSKELETAL: low back nontender, full range of motion. EXTREMITIES: Nontender, full range of motion. SKIN: Color pale, dry, no rash, no lacerations, no abrasions, no contusions. LYMPHATICS: Deferred. Course Quality Measures none Orders Category Date Time Status COVID-19 Screening Questionnaire NOW Care 01/11/25 21:[address] Screening NOW Care 01/11/25 17:12 Active Decision to Admit X1 Care 01/11/25 21:09 Active Insert NG / OG tube NOW Care 01/11/25 21:07 Active NG / OG Tube to LIS NOW Care 01/11/25 21:07 Active NPO NOW Care 01/11/25 21:03 Active Occult Blood,Stool (Nursing) ONCE Care 01/11/25 16:50 Active Transfuse,blood/blood products ONCE Care 01/11/25 20:28 Active Consult to Gastroenterology Stat Cons 01/11/25 21:09 Ordered Consult to General Surgery Stat Cons 01/11/25 21:09 Ordered Diet NPO (NOW) Diet 01/11/25 21:[address] abdomen pelvis w con Stat Exams 01/11/25 17:12 Completed CBC Stat Lab 01/11/25 17:55 Completed Comprehensive Metabolic Panel Stat Lab 01/11/25 17:55 Completed Magnesium Stat Lab 01/11/25 17:55 Completed Partial Thromboplastin Time Stat Lab 01/11/25 17:55 Completed Prothrombin Time with INR Stat Lab 01/11/25 17:55 Completed Type and Screen Stat Lab 01/11/25 17:55 Results Urinalysis Stat Lab 01/11/25 20:14 Received prbc [Red Blood Cells] Stat Lab 01/11/25 17:55 Results POTASSIUM CHL 10 mEq IVPB [Kcl Ivpb] Med 01/11/25 21:03 Active 10 meq in 100 ml IV X1 Piper/Tazo 3.375 gm [Zosyn] Med 01/12/25 06:00 Active 3.375 gm in 50 ml IV Q8HR Piper/Tazo 3.375 gm [Zosyn] Med 01/11/25 21:00 Discontinued 3.375 gm in 50 ml IV X1 Piper/Tazo 3.375 gm [Zosyn] Med 01/11/25 21:15 Active 3.375 gm in 50 ml IV X1 Potassium Chloride [K-Dur] Med 01/11/25 20:29 Discontinued 40 meq PO X1 ONE Sodium Chloride 0.9% 1000 ml [Ns] 1,000 ml Med 01/11/25 16:50 Discontinued IV 999 mls/hr metroNIDAZOLE/NS 500 MG IVPB [Flagyl 500 mg IV] Med 01/11/25 21:08 Active 500 mg in 100 ml IV Q8HR Vital Signs Vital signs: Vital Signs Temperature 98.1 F 01/11/25 16:48 Pulse Rate 108 H 01/11/25 16:48 Respiratory Rate 15 01/11/25 16:48 Blood Pressure 90/61 01/11/25 16:48 Pulse Oximetry (%) 99 01/11/25 16:48 Oxygen Delivery Method Room Air 01/11/25 16:48 Weakness MDM Narrative MDM Narrative:: 59-year-old female patient with significant history of IBD, currently on mesalamine, was sent to us by Dr. Gamboa, GI specialist, for further evaluation. Patient's been having worsening weakness for the last 1 week, having loose stools for the last 3 weeks, according to her color is green. Not black or tarry. Patient also complained of abdominal discomfort. Denies any fever. Denies any vomiting. Denies any other complaints. Rectal exam was done by me with a female saying that around all the time, it was tested negative for occult blood. CT scan of the abdomen showed pneumoperitoneum. Laboratory workup is significant for hemoglobin of 7.8, hematocrit of 23.8. WBC count is normal. Sodium 126, potassium 2.8. Creatinine is normal Patient received 2 units of packed RBC, IV Zosyn and IV Flagyl, and IV fluids for hydration. NG tube was inserted and attached to low intermittent suction. Spoke with Dr. Gamboa, discussed the case, and told me to asked general surgeon to see the patient also. I talked to Dr. Crooks, general surgeon on-call, and discussed the case also. Thank you Drs Spoke with hospitalist who admitted the patient. Patient data External records reviewed:: None Clinical information provided by:: none Social determinants that could affect healthcare access:: none Patient has the following chronic illnesses:: Irritable bowel disease How is presenting disease/condition affected by chronic disease/condition?: caused by Evaluation data The following diagnostics were reviewed and interpreted by me:: lab results and radiology exam(s) Lab and/or radiology exams considered but not ordered:: None Interpretation Summary: See results in MDM Medications / Prescriptions Medications or Prescriptions considered but not ordered:: None Medication administrations:: Medication Administration History Potassium Chloride (Kcl Ivpb) 10 meq in 100 mls @ 100 mls/hr IV X1 ONE Stop: 01/11/25 22:02 Metronidazole (Flagyl 500 Mg Iv) 500 mg in 100 mls @ 200 mls/hr IV Q8HR CAMERON Stop: 01/18/25 21:07 Piperacillin/Tazobactam/Dextrose (Zosyn) 3.375 gm in 50 mls @ 12.5 mls/hr IV Q8HR CAMERON Stop: 01/19/25 05:59 Piperacillin/Tazobactam/Dextrose (Zosyn) 3.375 gm in 50 mls @ 100 mls/hr IV X1 ONE Stop: 01/11/25 21:44 Discontinued Medications Sodium Chloride (Ns) 1,000 mls @ 999 mls/hr IV .Q1H1M ONE Stop: 01/11/25 17:50 Last Infusion: 01/11/25 19:17 Dose: Infused Documented By: Admin: 01/11/25 17:56 Dose: 999 mls/hr Documented By: JOE Piperacillin/Tazobactam/Dextrose (Zosyn) 3.375 gm in 50 mls @ 100 mls/hr IV X1 ONE Stop: 01/11/25 21:29 Last Admin: 01/11/25 21:11 Dose: Not Given Documented By: RUTH Non-Admin Reason: Discontinued Potassium Chloride (Potassium Chloride 20 Meq Tabcr) 40 meq PO X1 ONE Stop: 01/11/25 20:30 Last Admin: 01/11/25 21:11 Dose: Not Given Documented By: GB Non-Admin Reason: Discontinued IV potassium, Zosyn Flagyl IV fluids and 2 units of packed RBC Consultations Consultation(s) initiated? (list below): Yes Consultation #1 (Physician, Specialty, Details): Dr. Crooks, general surgeon on-call, thank you Consultation #2 (Physician, Specialty, Details): Dr. Gamboa, manager quality compliance on-call, thank you Diagnosis Weakness Differential Diagnosis: anemia, dehydration and other (Abdominal pain, irritable bowel disease, ) Most likely diagnosis given after review of the tests above:: Pneumoperitoneum, IBD Admission Indicated Admission indicated?: indicated Explain why admission is indicated or not indicated:: Patient is to be admitted for further management due to pneumoperitoneum Admission Request Was there a request for admission?: Yes Admission Attestation Admission request attestation: Discussed case with [Dr. Irizarry] from Hospitalist service regarding admission. Discussed patients ED course, exam findings, labs, and radiology results. The Hospitalist [agrees,] to accept the patient for admission. Disposition Plan Disposition Plan: Admit Discharge Plan Plan Patient Disposition: Admit Acute Care w/in Hospital Disposition Comment: Stable Prescriptions/Referrals Prescriptions/Med Rec: No Action ursodiol 250 MG tablet 250 mg PO TID Qty: 90 mesalamine 500 mg capsule, extended release 1,000 mg PO QID Qty: 30 1RF folic acid 1 mg tablet 1 mg PO QDAY Qty: 90 0RF loperamide 2 mg Capsule 2 mg PO Q6H PRN (Reason: Diarrhea) azathioprine 50 mg Tablet 50 mg PO BID 30 Days Qty: 60 0RF pantoprazole [Protonix] 40 mg tablet,delayed release (DR/EC) 40 mg PO QDAY Qty: 14 0RF Referrals: Alexey)Marcia PA-C [Primary Care Provider] - In 1 week Problem List Clinical Impression: Pneumoperitoneum, Irritable bowel disease Patient/Caregiver Discharge Instructions Discharge Activity: activity as tolerated Print Language: Cambodian Stand Alone Forms: Merary Award Info., Patient Portal Info Letter
--- NOTE | 2025-01-11 17:12 | XR_ITS ---
Examination: CT abdomen with intravenous contrast CT pelvis with intravenous contrast 2-D coronal reconstructions 2-D sagittal reconstructions Date and time of exam:January 11, 2025 1939 hrs. Indications: Lower abdominal pain beginning one week ago Comparison: December 17, 2024. CTDI: vol (mGy) 6.13 DLP: (mGycm) 353 Technique: Multiple axial sections of the abdomen and pelvis have been obtained. 64 slice high-resolution scanner used. 3 mm axial sections have been obtained, post intravenous injection 60 cc [id number] 2-D sagittal, coronal reconstructions obtained. Low dose protocols were performed. One or more of the following dose reduction techniques were used; automated exposure control, adjustment of the mA and/or KV according to patient size, use of iterative reconstruction technique. Findings: 10 mm pulmonary nodule lingular segment Pneumoperitoneum Contracted gallbladder with gallstones There are distended stomach No pancreatic mass Common hepatic duct 6 mm No hydronephrosis Abdominal aorta normal size No pericecal inflammatory change Colonic wall shows diffuse hyperemia and wall thickening Retroverted uterus with 20 mm uterine fundal mass Bladder intact Moderate disc narrowing L4-L5 Impression: Pneumoperitoneum, most severe droplets adjacent to the stomach, which may be secondary to gastric perforation Diffuse nonspecific colitis pattern, which may also be a source of the pneumoperitoneum No bowel obstruction Recommend surgical consultation
[2025-01-11] MEDS: SODIUM CHLORIDE 0.9% 1000 ML 1,000 ML 999 ML IV (17:56)
[2025-01-11 18:18] LABS: Basophils # (Auto) 0.1 Thou/mm3 (0.0-0.2); Basophils % (Auto) 1 % (0-2.5); Eosinophils % (Auto) 0 % (0-10); Hematocrit 23.2 % (36.0-46.0); Immature Granulocytes % (Auto) 2 % (0-0); Immature Granulocytes Auto 0.17 Thou/mm3 (0.00-0.00); Lymphocytes # (Auto) 0.9 Thou/mm3 (1.0-4.8); Lymphocytes % (Auto) 9 % (10-50); Mean Corpuscular HGB Conc 33.6 g/dl (31.0-37.0); Mean Corpuscular Volume 86 fL (80-100); Monocytes # (Auto) 0.2 Thou/mm3 (0.0-0.8); Monocytes % (Auto) 2 % (0-12); Neutrophils # (Auto) 8.5 Thou/mm3 (1.8-7.7); Neutrophils % (Auto) 87 % (37-80); Nucleated Red Blood Cell % 0 /100 WBC (0); Platelet Count 536 Thou/mm3 (140-440); RDW Standard Deviation 52.9 fL (36.4-46.3); Red Blood Count 2.69 Miln/mm3 (4.00-5.20); White Blood Count 9.8 Thou/mm3 (3.6-11.0)
[2025-01-11 18:26] LABS: INR 1.3 (0.9-1.3); Partial Thromboplastin Time 25.2 Seconds (22.0-36.0); Prothrombin Time 13.5 Seconds (9.0-12.2)
[2025-01-11 18:27] VITALS: BP 97/69; PULSE 99; RESP 19; TEMP 36.8; O2SAT 98
[2025-01-11 18:30] LABS: Alanine Aminotransferase 19 U/L (10-49); Albumin, Serum 2.6 gm/dL (3.4-4.8); Albumin/Globulin Ratio 1.2 (1.2-2.2); Alkaline Phosphatase 111 U/L (46-116); Anion Gap 8 (7-16); Aspartate Amino Transferase 11 U/L (0-34); BUN/Creatinine Ratio 40 Ratio (12-20); Bilirubin,Total 0.6 mg/dL (0.3-1.2); Blood Urea Nitrogen 12 mg/dL (9-23); Calcium (Corrected) 9.1 mg/dL (8.5-10.1); Carbon Dioxide 28.9 mMol/L (20.0-31.0); Chloride 89 mMol/L (98-107); Creatinine (Component) 0.3 mg/dL (0.6-1.3); Estimated Creatinine Clearance 183.7 mL/min (>60); Globulin 2.1 gm/dL (2.3-3.5); Glucose 92 mg/dL (74-106); Osmolality,Calculated 253 (275-295); Potassium 2.9 mMol/L (3.4-5.1); Sodium 126 mMol/L (136-145); Total Protein 4.7 gm/dL (5.7-8.2); eGFR > 60 See Note
[2025-01-11 18:31] LABS: Hemoglobin 7.8 g/dL (12.0-16.0)
[2025-01-11 20:31] LABS: Collection Type, Urine Clean Catch; Squamous Epithelial Cell,Urine 0 /hpf (0-5)
[2025-01-11 21:00] VITALS: BP 99/65; PULSE 111; RESP 20; O2SAT 98
[2025-01-11 21:12] LABS: Magnesium 1.8 mg/dL (1.6-2.6)
[2025-01-11 21:22] LABS: Bilirubin,Urine Negative (Negative); Blood,Urine Negative (Negative); Clarity,Urine Clear (Clear/Hazy); Color,Urine Colorless (Lt Yel-Yel); Glucose, Urine Negative (Negative); Ketones,Urine 1+ (Negative); Leukocyte Esterase,Urine Positive (Negative); Nitrite,Urine Negative (Negative); Protein,Urine Negative (Neg - Trace); RBC,Urine 1 /hpf (0-3); Specific Gravity,Urine 1.024 (1.001-1.035); Urobilinogen,Urine Negative mg/dL (0.0-1.0); WBC,Urine 1 /hpf (0-5)
--- NOTE | 2025-01-11 21:23 | XR_ITS ---
Examination: AP chest single view Technique one AP portable upright chest single view Exam date and time: January 17, 2025 1005 hrs. Indications: Nausea vomiting today Findings: Normal heart size Mild atelectasis left base No lobar pneumonia or pulmonary edema Moderate osteopenia Impression: Minor atelectasis left base
--- NOTE | 2025-01-11 21:35 | PD.RESHP ---
Documentation for date of: 01/11/25 HPI History of Present Illness Chief complaint: Abdominal pain History of present illness: Ms. Smith is a 59-year-old female with past medical history of inflammatory bowel disease/ulcerative colitis presented to [facility] with a chief complaint of worsening abdominal pain and discomfort. Patient reported that she was recently discharged from the hospital on 12/21/2024 for ulcerative colitis flare, significant abdominal pain, patient reported that post discharge her symptoms have been worsening reported worsening weakness, loose stools green in color for about 3 weeks, patient complained of significant abdominal pain and tenderness. Reported that she was evaluated by GI specialist earlier this morning who advised that she goes to ER for further evaluation. In ER patient was found to have pneumoperitoneum secondary to gastric perforation versus colitis. General surgery was consulted ED and patient was taken to the OR for emergent surgery. ED Course: ED Vitals: On presentation in ED BP 90/61, P108, RR 15, temp 98.1, O2 sat 99 on room air ED Labs: ED labs significant for WBC 9.8, RBC 2.69, hemoglobin 7.8, hematocrit 23.2, platelet 536, neutrophil 87%, PT 13.5, sodium 126, potassium 2.9, chloride 89, creatinine 0.3, osmolality 253, total protein 4.7, albumin 2.6, globulin 2.1 ED Imaging:CT abdomen pelvis shows pneumoperitoneum most severe droplets adjacent to stomach, diffuse nonspecific colitis possible source of perforation stomach versus colon. chest x-ray shows minor atelectasis left base. ED Treatment:Patient was given 1 L NS bolus, Zosyn x 1, Flagyl x 1 in ED. General Surgery was consulted in ED, patient admitted for emergent surgery. Review of Systems Review of Systems Narrative Review of Systems: ROS: -CONSTITUTIONAL: Positive for weight loss, lethargy denies fever and chills. -HEENT: Denies changes in vision and hearing. -RESPIRATORY: Denies SOB and cough. -CV: Denies palpitations and Chest Pain. -GI: Positive for abdominal pain, nausea, vomiting, and diarrhea. -: Denies dysuria and urinary frequency. -MSK: Denies myalgia and joint pain. -SKIN: Denies rash and pruritus. -NEUROLOGICAL: Denies headache and syncope. -PSYCHIATRIC: Denies recent changes in mood. Denies anxiety and depression. Past Medical History Past Medical History Comments PMH COMMENT: PMH: Positive for ulcerative colitis PSHx: Denies Allergies: Ciprofloxacin (GI upset) levofloxacin (rash) and ibuprofen (GI upset) Social history: -Smoking: Former smoker Family History: Denies any pertinent family history Exam Vital Signs Temp Pulse Resp BP Pulse Ox O2 Del Method 98.3 F 99 19 97/69 98 Room Air 01/11/25 18:27 01/11/25 18:27 01/11/25 18:27 01/11/25 18:27 01/11/25 18:27 01/11/25 18:27 Narrative Exam Physical Exam General: Awake and ill-appearing. Conversational. HEENT: Normocephalic, atraumatic, mucous membranes dry. Heart: Sinus tachycardia, no murmurs. Lungs: Clear to auscultation with no wheezing or crackles. Abdomen: Soft, severe diffuse tenderness. Neurologic: Alert and oriented x3, no gross neurological deficit, and patient able to move all 4 extremities. Extremities: No edema. Skin: No rash or ecchymoses. Results: Labs 01/12/25 01:14 01/12/25 01:14 Labs: Short CBC 01/11/25 Range/Units 17:55 WBC 9.8 (3.6-11.0) Thou/mm3 Hgb 7.8 L (12.0-16.0) g/dL Hct 23.2 L (36.0-46.0) % Plt Count 536 H D (140-440) Thou/mm3 BMP 01/11/25 17:55 Sodium 126 L Potassium 2.9 L D Chloride 89 L Carbon Dioxide 28.9 BUN 12 Creatinine 0.3 L Glucose 92 Calcium 8.0 L Liver Function 01/11/25 Range/Units 17:55 Total Bilirubin 0.6 (0.3-1.2) mg/dL AST 11 (0-34) U/L ALT 19 (10-49) U/L Alkaline Phosphatase 111 (46-116) U/L Albumin 2.6 L (3.4-4.8) gm/dL Urine 01/11/25 Range/Units 20:14 Urine Color Colorless A (Lt Yel-Yel) Urine Clarity Clear (Clear/Hazy) Urine pH 7.0 (5.0-7.0) Ur Specific [place] 1.024 (1.001-1.035) Urine Protein Negative (Neg - Trace) Urine Glucose (UA) Negative (Negative) Quality Measures Quality Measures none Medications Home Medications and Allergies Home Medications ?Medication ?Instructions ?Recorded ?Confirmed ?Type ursodiol 250 mg tablet 250 mg PO TID ##90 02/17/17 01/11/25 History loperamide 2 mg capsule 2 mg PO Q6H PRN Diarrhea 12/20/24 01/11/25 History ascorbic acid (vitamin C) 500 mg 500 mg PO BID 01/11/25 01/11/25 History tablet (Vitamin C) ferrous sulfate 325 mg (65 mg 325 mg PO DAILY 01/11/25 01/11/25 History iron) tablet folic acid 1 mg tablet 400 mcg PO QDAY 01/11/25 01/11/25 History mesalamine 500 mg capsule,extended 500 mg PO QID UC 01/11/25 01/11/25 History release prednisone 5 mg tablet 5 mg PO TID 01/11/25 01/11/25 History Allergies Allergy/AdvReac Type Severity Reaction Status Date / Time ciprofloxacin (From Cipro) Allergy Intermediate Gastrointestinal Verified 12/17/24 10:35 Upset levofloxacin Allergy Intermediate Rash Verified 12/17/24 10:35 ibuprofen AdvReac Intermediate Gastrointestinal Verified 12/17/24 10:35 Upset Visit Medications Potassium Chloride (Kcl Ivpb) 10 meq in 100 mls @ 100 mls/hr IV X1 ONE Stop: 01/11/25 22:02 Metronidazole (Flagyl 500 Mg Iv) 500 mg in 100 mls @ 200 mls/hr IV Q8HR CAMERON Stop: 01/18/25 21:07 Piperacillin/Tazobactam/Dextrose (Zosyn) 3.375 gm in 50 mls @ 12.5 mls/hr IV Q8HR CAMERON Stop: 01/19/25 05:59 Piperacillin/Tazobactam/Dextrose (Zosyn) 3.375 gm in 50 mls @ 100 mls/hr IV X1 ONE Stop: 01/11/25 21:44 Pantoprazole Sodium (Pantoprazole Inj 40 Mg Vial) 40 mg IVP QDAY CAMERON Stop: 02/11/25 08:59 Discontinued Medications Sodium Chloride (Ns) 1,000 mls @ 999 mls/hr IV .Q1H1M ONE Stop: 01/11/25 17:50 Last Infusion: 01/11/25 19:17 Dose: Infused Piperacillin/Tazobactam/Dextrose (Zosyn) 3.375 gm in 50 mls @ 100 mls/hr IV X1 ONE Stop: 01/11/25 21:29 Last Admin: 01/11/25 21:11 Dose: Not Given Potassium Chloride (Potassium Chloride 20 Meq Tabcr) 40 meq PO X1 ONE Stop: 01/11/25 20:30 Last Admin: 01/11/25 21:11 Dose: Not Given Assessment & Plan Plan Assessment and Plan: Summary: Ms. Smith is a 59-year-old female with past medical history of inflammatory bowel disease/ulcerative colitis presented to [facility] with a chief complaint of worsening abdominal pain and discomfort. Patient admitted to hospital for GI perforation. #Pneumoperitoneum #Gastric perforation versus colon perforation #Severe abdominal tenderness #?Peritonitis #Ulcerative colitis Patient has history of ulcerative colitis, was recently discharged from hospital for ulcerative colitis flare, patient reported worsening of symptoms since the last week, reported significant abdominal pain earlier today, was seen in GI office by Dr. Gamboa who recommended patient to go to ED for further evaluation. CT abdomen pelvis showed Pneumoperitoneum, most severe droplets adjacent to the stomach, which may be secondary to gastric perforation, Diffuse nonspecific colitis pattern, which may also be a source of the pneumoperitoneum. Patient's abdomen diffusely tender, general surgery consulted in ED. Plan: -General Surgery consulted in ED, patient will require emergent surgery -IV Zosyn 4.5 every 8 hours -IV Protonix daily -Consulted GI, appreciate recommendations -Follow blood cultures -Follow lactate level #Normocytic normochromic anemia On admission. Hemoglobin 7.8, hematocrit 23.2, MCV 86, MCH 29 -Monitor CBC in a.m. -Consider transfusion if hemoglobin less than 7 #Electrolyte disturbances #Hypokalemia #Hypovolemic hypoosmolar hypochloremic hyponatremia -Follow electrolytes in a.m. -Correct and replace electrolytes as needed DVT prophylaxis: SCDs GI prophylaxis: IV Protonix Diet: N.p.o. Lines: Peripheral IV Code status: Full code Case discussed with Attending Dr. Pang. Krystyna Irizarry PGY1 Internal Medicine Disclaimer: This note was dictated by speech recognition. Minor errors in orthodontic laboratory technician may be present due to voice recognition software. Attending Provider Attestation/Addendum 59-year-old female with ulcerative colitis was admitted for abdominal pain found to have pneumoperitoneum. Patient will be taken to the OR for exploratory lap urgently. Her white count is 9800 hemoglobin 7.8 BUN 12 creatinine 0.3 potassium 2.9.
[2025-01-11 21:43] LABS: Lactate (Lactic Acid) 0.8 mMol/L (0.4-2.0)
[2025-01-11] MEDS: metroNIDAZOLE/NS 500 MG IVPB 500 MG/100 ML BAG 200 MG IV (21:45)
[2025-01-11] MEDS: PIPER/TAZO 3.375 GM 3.375 GM/50 ML BAG IV (21:53)
[2025-01-11 21:59] VITALS: PULSE 126; RESP 22; RESP 99
[2025-01-11 22:12] LABS: Procalcitonin 0.19 ng/ml (0.0-0.49)
--- NOTE | 2025-01-11 22:17 | PD.IMCONS ---
HPI Data of Consult Requesting Physician: Tyrell Pang MD [facility] Consult Narrative Reason for consult: Pain abdomen, pneumoperitoneum History of present illness: 59 years old female who has a known history of modi ulcerative colitis came for evaluation to my office as she appeared to be quite sick On examination the abdomen is quite tender no bowel sounds somewhat distended Patient appeared to be quite deteriorated in the due course of time as she has stopped taking her medications 2 months ago regarding her underlying inflammatory bowel disease Patient appeared to have acute abdomen and I called the ambulance and send the patient to the emergency room Upon discussion with the ER physician/physician health center assistant CT scan of the abdomen pelvis was done on a stat basis and showed pneumoperitoneum and patient was subsequently admitted with broad-spectrum antibiotics on board along with NGT to intermittent suction and the surgical consult was arranged cc:: cc: Tyrell Pang MD Review of Systems Review of Systems Systems Reviewed: All systems reviewed, normal except as documented Past Medical History Surgical History OTHER SURGICAL HX: Inflammatory bowel disease Meds Home Medications and Allergies Home Medications ?Medication ?Instructions ?Recorded ?Confirmed ?Type ursodiol 250 mg tablet 250 mg PO TID ##90 02/17/17 01/11/25 History loperamide 2 mg capsule 2 mg PO Q6H PRN Diarrhea 12/20/24 01/11/25 History ascorbic acid (vitamin C) 500 mg 500 mg PO BID 01/11/25 01/11/25 History tablet (Vitamin C) ferrous sulfate 325 mg (65 mg 325 mg PO DAILY 01/11/25 01/11/25 History iron) tablet folic acid 1 mg tablet 400 mcg PO QDAY 01/11/25 01/11/25 History mesalamine 500 mg capsule,extended 500 mg PO QID UC 01/11/25 01/11/25 History release prednisone 5 mg tablet 5 mg PO TID 01/11/25 01/11/25 History Allergies Allergy/AdvReac Type Severity Reaction Status Date / Time ciprofloxacin (From Cipro) Allergy Intermediate Gastrointestinal Verified 12/17/24 10:35 Upset levofloxacin Allergy Intermediate Rash Verified 12/17/24 10:35 ibuprofen AdvReac Intermediate Gastrointestinal Verified 12/17/24 10:35 Upset Exam Vital Signs Temp Pulse Resp BP Pulse Ox O2 Del Method 98.3 F 126 H 22 H 99/65 98 Room Air 01/11/25 18:27 01/11/25 21:59 01/11/25 21:59 01/11/25 21:00 01/11/25 21:00 01/11/25 21:00 Constitutional Comments: Very sick appearing Routine Abdominal Exam Comments: Tender distended no bowel sounds Results Labs 01/12/25 04:40 01/12/25 09:50 Labs: Short CBC 01/11/25 Range/Units 17:55 WBC 9.8 (3.6-11.0) Thou/mm3 Hgb 7.8 L (12.0-16.0) g/dL Hct 23.2 L (36.0-46.0) % Plt Count 536 H D (140-440) Thou/mm3 BMP 01/11/25 17:55 Sodium 126 L Potassium 2.9 L D Chloride 89 L Carbon Dioxide 28.9 BUN 12 Creatinine 0.3 L Glucose 92 Calcium 8.0 L Liver Function 01/11/25 Range/Units 17:55 Total Bilirubin 0.6 (0.3-1.2) mg/dL AST 11 (0-34) U/L ALT 19 (10-49) U/L Alkaline Phosphatase 111 (46-116) U/L Albumin 2.6 L (3.4-4.8) gm/dL Urine 01/11/25 Range/Units 20:14 Urine Color Colorless A (Lt Yel-Yel) Urine Clarity Clear (Clear/Hazy) Urine pH 7.0 (5.0-7.0) Ur Specific [place] 1.024 (1.001-1.035) Urine Protein Negative (Neg - Trace) Urine Glucose (UA) Negative (Negative) Assessment and Plan Additional Assessment & Plan Additional Plan: Pneumoperitoneum most likely perforated viscus and most likely culprit in this case is either colonic or gastric because of the steroids on board Plan N.p.o. NG to intermittent suction IV Zosyn IV Solu-Medrol 40 mg every 12 Surgical consultation Will follow patient most likely will need exploratory laparotomy tonight for further evaluation and management
--- NOTE | 2025-01-11 22:22 | PD.SURCONS ---
HPI Consult details Consult date: 01/11/25 Reason for consultation narrative: Pneumoperitoneum History of present illness: 59-year-old female with history of ulcerative colitis presented to the emergency department with worsening abdominal pain and dehydration. She was admitted to the hospital last month with abdominal pain, diarrhea and exacerbation of her ulcerative colitis. She was treated with medications and her symptoms improved. She comes back to the emergency department with worsening pain, fatigue and low hemoglobin. CT scan revealed pneumoperitoneum. She has had colonoscopy last year that revealed diffuse colonic ulceration and erythema. She denies chronic history of aspirin and NSAIDs. Review of Systems Constitutional Constitutional: Denies chills, Denies fever(s) and Reports weight loss Cardiovascular Cardiovascular: Denies chest pain Respiratory Respiratory: Denies cough Gastrointestinal Gastrointestinal: Reports abdominal pain, Reports nausea and Denies vomiting Genitourinary Genitourinary: Denies dysuria Hematologic/Lymphatic Hematologic/Lymphatic: Denies easy bleeding and Denies easy bruising Past Medical History Surgical History OTHER SURGICAL HX: Back surgery Social History SMOKING STATUS: Former smoker SUBSTANCE USE: does not use ALCOHOL: Former Meds Home Medications and Allergies Home Medications ?Medication ?Instructions ?Recorded ?Confirmed ?Type ursodiol 250 mg tablet 250 mg PO TID ##90 02/17/17 01/11/25 History loperamide 2 mg capsule 2 mg PO Q6H PRN Diarrhea 12/20/24 01/11/25 History ascorbic acid (vitamin C) 500 mg 500 mg PO BID 01/11/25 01/11/25 History tablet (Vitamin C) ferrous sulfate 325 mg (65 mg 325 mg PO DAILY 01/11/25 01/11/25 History iron) tablet folic acid 1 mg tablet 400 mcg PO QDAY 01/11/25 01/11/25 History mesalamine 500 mg capsule,extended 500 mg PO QID UC 01/11/25 01/11/25 History release prednisone 5 mg tablet 5 mg PO TID 01/11/25 01/11/25 History Allergies Allergy/AdvReac Type Severity Reaction Status Date / Time ciprofloxacin (From Cipro) Allergy Intermediate Gastrointestinal Verified 12/17/24 10:35 Upset levofloxacin Allergy Intermediate Rash Verified 12/17/24 10:35 ibuprofen AdvReac Intermediate Gastrointestinal Verified 12/17/24 10:35 Upset Exam Vital Signs Temp Pulse Resp BP Pulse Ox O2 Del Method 98.3 F 126 H 22 H 99/65 98 Room Air 01/11/25 18:27 01/11/25 21:59 01/11/25 21:59 01/11/25 21:00 01/11/25 21:00 01/11/25 21:00 Constitutional Constitutional: chronically ill appearing Routine Abdominal Exam Comments: Abdomen is distended with diffuse tenderness throughout the abdomen consistent with peritonitis Results Results: Laboratory Laboratory results: results reviewed Results: Imaging CT scan - abdomen: report reviewed and image reviewed CT scan - pelvis: report reviewed and image reviewed Assessment & Plan Problem List (1) Pneumoperitoneum: Status: Acute Plan Will take patient to the operating room emergently for exploratory laparotomy, possible bowel resection, possible ostomy. Risks include but not limited to infection, bleeding, injury to bowel, stomach, surround neurovascular structures, possible leak from the repair site, abdominal sepsis and or abdominal abscess, need for further procedure and or operation, pneumonia, blood clot, heart attack, stroke and discussed with the patient and her sister. I also explained to them that because of her chronic history of steroid use she is at high risk for wound healing. Benefits and alternatives explained to them, all their questions answered, they agreed and consented to proceed with the operation.
[2025-01-12] VITALS (144 sets, daily range): BP systolic 72–155; BP diastolic 35–79; PULSE 64–144; RESP 13–31; TEMP 36–36.4; O2SAT 99–100; BMI 19.1
--- NOTE | 2025-01-12 00:47 | ESOP_ITS ---
Date of Procedure 01/11/25 Pre Op Diagnosis Pneumoperitoneum Post Op Diagnosis Multiple large bowel perforations Multiple small bowel perforations Multiple coloenteric fistulas Procedure Exploratory laparotomy, subtotal colectomy with en bloc partial small bowel resection Findings Multiple areas of large bowel perforation with feculent peritonitis. Multiple areas of small bowel perforation. Multiple areas of coloenteric fistulous Procedure Description Patient brought into operating room in supine position. After administration of general tracheal anesthesia, patient's abdomen prepped and draped in standard surgical manner. A laparotomy incision was made from mid epigastrium, around into the right of the umbilicus and just to below umbilicus. Dissection was deepened into soft tissue and anterior abdominal fascia was divided. Upon entering the abdominal cavity, patient was noted to have multiple perforations of transverse colon with feculent peritonitis. Incision was extended cephalad and caudally. Upon further inspection patient was noted to have perforations of sigmoid as well as descending colon with liquidy stool emanating from these perforations. There were multiple loops of small bowel adherent to the transverse colon and perforations in the small bowel was also noted. There were areas of coloenteric fistulous. With patient's history of significant ulcerative colitis and multiple perforations I elected to perform subtotal colectomy. The cecum was mobilized. Ascending colon was mobilized by dividing the white line of [place] and hepatic flexure was mobilized. The lesser sac was entered and gastrocolic ligament was divided. Dissection continued to the left upper quadrant where the splenic flexure was mobilized. The descending colon was also mobilized by dividing the white line of [place] and the remainder of sigmoid and proximal rectum were mobilized. Terminal ileum approximately 10 cm proximal to ileocecal junction was divided with SAY stapling device. Ileocolic vessel was divided near its origin. Middle colic vessels were also ligated near the origin. Inferior mesenteric arteries and veins were ligated. The proximal aspect of rectum was divided with TA stapling device. There are multiple loops of small bowel adherent to the colon suspicious for enterocolonic fistula. The proximal jejunum approximately 15 cm distal to ileocecal junction was divided. Mid jejunum just distal to the area of enterocolonic fistula was divided. A subtotal colectomy with en bloc resection of the partial small bowel was performed. The small bowel was measured, patient had approximately 170-180 cm of small bowel remaining. Abdomen and pelvis copiously and thoroughly washed and irrigated, all the fluids were suctioned and the suction fluid returned clear. Because of the degree of contamination I elected to leave the abdomen open and bring the patient back for second look laparotomy. The bowel was covered with sterile plastic covering. A wet towel was placed over the plastic covering and a wound VAC was placed. The wound VAC apparatus was applied. Patient remained intubated and transferred to intensive care unit in critical condition. Instruments, needles and sponge counts were reported to be correct x 2. Anesthesia GETA Pathology / specimen Other (Subtotal colon with en bloc partial small bowel) Estimated Blood Loss 50 Condition Critical Disposition ICU Surgeon Star Crooks MD Surgical Staff Operation Date: 01/11/25 22:15 Case Staff Anesthesiologist: Srini Granados RNreal estate teacher: Tasha Mitchell
--- NOTE | 2025-01-12 00:59 | ESCONSULT_ITS ---
HPI Data of Consult Requesting Physician: Tyrell Pang MD Admitting Provider: Tyrell Pang MD Attending Provider: Tyrell Pang MD [facility] Consult Narrative History of present illness: Patient is a 59-year-old female with past medical history of inflammatory bowel disease/ulcerative colitis that was recently discharged on 12-21-2024 pharmacy review for IBS flareup that presented to [facility] with a chief complaint of worsening abdominal pain and discomfort for the past 3 weeks. Patient found to have pneumoperitoneum on imaging and was sent to OR for exploratory laparotomy. During exploratory laparotomy patient found to have multiple perforations in both large and small intestines. Per Dr Crooks patient will require surgery again on Wednesday, but requires to be sedated on mechanical ventilation until then. Peritoneum remains open and patient is to have TPN nutrition no enteral feeds. ICU consulted for further management of critically ill patient. cc:: cc: Tyrell Pang MD Exam Vital Signs Temp Pulse Resp BP Pulse Ox O2 Del Method 98.3 F 126 H 22 H 99/65 98 Room Air 01/11/25 18:27 01/11/25 21:59 01/11/25 21:59 01/11/25 21:00 01/11/25 21:00 01/11/25 21:00 Narrative Exam GENERAL: Sedated and mechanically ventilated elderly female. HEENT: Normocephalic, atraumatic. PERRLA, nonicteric. HEART: Tachycardic, no murmurs, rubs or gallops. LUNGS: Clear to auscultation bilaterally with symmetrical chest rise. On mechanical ventilation. ABDOMEN: Fresh ex lap incision covered with tape. EXTREMITIES: Trace bilateral lower extremity edema. SKIN: Warm and dry, no jaundice or rashes noted. Results Labs 01/12/25 01:14 01/12/25 01:14 Labs: Short CBC 01/11/25 Range/Units 17:55 WBC 9.8 (3.6-11.0) Thou/mm3 Hgb 7.8 L (12.0-16.0) g/dL Hct 23.2 L (36.0-46.0) % Plt Count 536 H D (140-440) Thou/mm3 BMP 01/11/25 17:55 Sodium 126 L Potassium 2.9 L D Chloride 89 L Carbon Dioxide 28.9 BUN 12 Creatinine 0.3 L Glucose 92 Calcium 8.0 L Liver Function 01/11/25 Range/Units 17:55 Total Bilirubin 0.6 (0.3-1.2) mg/dL AST 11 (0-34) U/L ALT 19 (10-49) U/L Alkaline Phosphatase 111 (46-116) U/L Albumin 2.6 L (3.4-4.8) gm/dL Urine 01/11/25 Range/Units 20:14 Urine Color Colorless A (Lt Yel-Yel) Urine Clarity Clear (Clear/Hazy) Urine pH 7.0 (5.0-7.0) Ur Specific [place] 1.024 (1.001-1.035) Urine Protein Negative (Neg - Trace) Urine Glucose (UA) Negative (Negative) Quality Measures Quality Measures none Medications Home Medications and Allergies Home Medications ?Medication ?Instructions ?Recorded ?Confirmed ?Type ursodiol 250 mg tablet 250 mg PO TID ##90 02/17/17 01/11/25 History loperamide 2 mg capsule 2 mg PO Q6H PRN Diarrhea 01/11/25 History ascorbic acid (vitamin C) 500 mg 500 mg PO BID 5 01/11/25 History tablet (Vitamin C) ferrous sulfate 325 mg (65 mg 325 mg PO DAILY 01/11/25 01/11/25 History iron) tablet folic acid 1 mg tablet 400 mcg PO QDAY 01/11/25 History mesalamine 500 mg capsule,extended 500 mg PO QID UC 01/11/25 History release prednisone 5 mg tablet 5 mg PO TID 01/11/25 5 History Allergies Allergy/AdvReac Type Severity Reaction Status Date / Time ciprofloxacin (From Cipro) Allergy Intermediate Gastrointestinal Verified 12/17/24 10:35 Upset levofloxacin Allergy Intermediate Rash Verified 12/17/24 10:35 ibuprofen AdvReac Intermediate Gastrointestinal Verified 12/17/24 10:35 Upset Visit Medications Piperacillin/Tazobactam/Dextrose (Zosyn) 100 mls @ 200 mls/hr IV Q8HR [facility] Stop: 01/18/25 23:23 Pantoprazole Sodium (Pantoprazole Inj 40 Mg Vial) 40 mg IVP QDAY [facility] Stop: 02/11/25 08:59 Discontinued Medications Sodium Chloride (Ns) 1,000 mls @ 999 mls/hr IV .Q1H1M ONE Stop: 01/11/25 17:50 Last Infusion: 01/11/25 19:17 Dose: Infused Piperacillin/Tazobactam/Dextrose (Zosyn) 3.375 gm in 50 mls @ 100 mls/hr IV X1 ONE Stop: 01/11/25 21:29 Last Admin: 01/11/25 21:11 Dose: Not Given Potassium Chloride (Kcl Ivpb) 10 meq in 100 mls @ 100 mls/hr IV X1 ONE Stop: 01/11/25 22:02 Metronidazole (Flagyl 500 Mg Iv) 500 mg in 100 mls @ 200 mls/hr IV Q8HR [facility] Stop: 01/18/25 21:07 Last Admin: 01/11/25 21:45 Dose: 200 mls/hr Piperacillin/Tazobactam/Dextrose (Zosyn) 3.375 gm in 50 mls @ 12.5 mls/hr IV Q8HR [facility] Stop: 01/19/25 05:59 Piperacillin/Tazobactam/Dextrose (Zosyn) 3.375 gm in 50 mls @ 100 mls/hr IV X1 ONE Stop: 01/11/25 21:44 Last Admin: 01/11/25 21:53 Dose: 100 mls/hr Potassium Chloride (Kcl Ivpb) 10 meq in 100 mls @ 100 mls/hr IV X1 ONE Stop: 01/12/25 00:43 Potassium Chloride (Potassium Chloride 20 Meq Tabcr) 40 meq PO X1 ONE Stop: 01/11/25 20:30 Last Admin: 01/11/25 21:11 Dose: Not Given Assessment & Plan Plan Patient is a 59-year-old female with past medical history of inflammatory bowel disease/ulcerative colitis that was recently discharged on 12-21-2024 pharmacy review for IBS flareup that presented to [facility] with a chief complaint of worsening abdominal pain and discomfort for the past 3 weeks. Patient upgraded to ICU for further management as she remains critically ill and mechanically ventilated. Neuro: Sedated on propofol and fentanyl. Cardiac: Currently stable Pulm: On mechanical ventilation Follow-up on ABG in the morning Currently saturating well Otherwise stable. Renal: #Hypokalemia Continue to monitor and replete #Hypomagnesemia Continue to monitor and replete #Hypoosmolar hypochloremic hyponatremia Suspect decreased p.o. intake Patient given IV fluids Continue to monitor with daily CMP's GI: #Pneumoperitoneum s/p ex lap Patient noted to have pneumoperitoneum on CT imaging Emergently admitted to surgery found to have multiple perforations in both large and small intestines Patient remains with open wound and needs further surgery Dr Crooks following patient, patient requires TPN and NG tube with LIS. Patient will repeat surgery on Wednesday per Dr Crooks. #History of IBS Likely cause of perforations with ulcerative colitis GI and surgery following patient appreciate recommendations. Heme: #Normocytic anemia Likely secondary to ulcerative colitis Patient received 4 units of PRBC and 1 unit FFP Follow-up CBC Endo: Stable ID: #Peritonitis #Colitis Imaging showing diffuse nonspecific colitis Likely secondary to perforations Patient started on broad-spectrum antibiotic Zosyn Follow-up blood cultures Narrow antibiotics pending results DVT prophylaxis: SCDs Diet: N.p.o. for now, TPN only per surgery recommendation CODE STATUS: Full code Case discussed with attending physician Dr. Poly Dimas MD PGY3
--- NOTE | 2025-01-12 01:02 | XR_ITS ---
Examination: AP chest single view Technique one AP portable supine chest single view Exam date and time: January 12, 2025 0107 hrs. Comparison January 11, 2025 Indications: Hypoxic respiratory failure today post intubation Findings: Endotracheal tube tip 4.4 cm above terrell Mild opacity left base Orogastric tube in the stomach satisfactory position Normal heart size Impression: Mild left base pneumonia, consider aspiration pneumonia
--- NOTE | 2025-01-12 01:25 | ESPR_ITS ---
Documentation for date of: 01/12/25 ANESTHESIA NOTE: Patient had GETA for emergent ex lap tonight (01/11/25) for pneumoperitoneum and found to have multiple perforations (see op note for details). Abdomen was left open with wound vac in placed and she was transferred to ICU post op intubated. Pre-op, I saw her expeditiously in ER with her family visitor. She was alert and calm, appeared lethargic, endorsed abdominal pain and generalized weakness. She has h/o IBD and anemia, denied h/o SC and acute cardiopul sx. Pre-op labs showed low Hgb, low Na, and K 2.9, she was tachy in ER, HR 120s. She was taken to OR and intubated uneventfully. She was sinus tachy on arrival to OR, HR 110s, and SBP 80s on NIBP cuff L arm. She overall did well intra-op except she needed volume and I maintained her BP with intermittent IV Phenylephrine and Vasopressin boluses and ongoing volume. In total, she received 2 u RBC, 1 u FFP, 250 cc 5% Albumin, and about 900 cc of NS intra-op. UOP 100 cc. R NGT was placed with minimal output. She was given 2 mg IV Cefoxitin intra- op, also 1 gm IV CaCl, and I also gave her about 12.5 mEq of KCL slow IVPB intra-op. She had two good PIVs. I placed R radial A line easily in 1 attempt with US guidance with sterile technique with good waveform obtained and tegaderm-tape secured. The surgeon planned to bring her back to OR later and asked to leave her intubated and transfer to ICU, so at the end, she was transferred to ICU critical but stable and sedated, placed on vent by RT, and I gave report to RN at bedside and gave initial orders for vent, labs, sedation and PRN Levo. I called and gave brief update to her family member, Maya Gardner, at [phone]. Will defer further management to the ICU team. Srini Granados MD Anesthesia Progress Note Progress Note Most recent Vital Signs: Last Vital Signs Temp 98.3 F 01/11/25 18:27 Pulse 126 H 01/11/25 21:59 Resp 22 H 01/11/25 21:59 BP 99/65 01/11/25 21:00 Pulse Ox 98 01/11/25 21:00 O2 Del Method Room Air 01/11/25 21:00
[2025-01-12] MEDS: PROPOFOL 1,000 MG IVPB 1,000 MG/100 ML VIAL 2.177 MG IV (01:27)
[2025-01-12] MEDS: fentaNYL 2,500 MCG/250 ML BAG 2,500 MCG/250 ML BAG IV (01:27)
[2025-01-12 02:00] LABS: Alanine Aminotransferase 18 U/L (10-49); Albumin, Serum 2.4 gm/dL (3.4-4.8); Albumin/Globulin Ratio 1.5 (1.2-2.2); Alkaline Phosphatase 81 U/L (46-116); Anion Gap 8 (7-16); Aspartate Amino Transferase 19 U/L (0-34); BUN/Creatinine Ratio 20 Ratio (12-20); Blood Urea Nitrogen 8 mg/dL (9-23); Calcium 8.9 mg/dL (8.3-10.6); Calcium (Corrected) 10.2 mg/dL (8.5-10.1); Carbon Dioxide 22.8 mMol/L (20.0-31.0); Chloride 105 mMol/L (98-107); Creatinine (Component) 0.4 mg/dL (0.6-1.3); Estimated Creatinine Clearance 137.8 mL/min (>60); Globulin 1.6 gm/dL (2.3-3.5); Glucose 126 mg/dL (74-106); Magnesium 1.5 mg/dL (1.6-2.6); Osmolality,Calculated 272 (275-295); Sodium 136 mMol/L (136-145); eGFR > 60 See Note
[2025-01-12 02:01] LABS: Potassium 2.7 mMol/L (3.4-5.1)
[2025-01-12 02:05] LABS: Basophils % (Auto) 1 % (0-2.5); Eosinophils % (Auto) 0 % (0-10); Hematocrit 23.1 % (36.0-46.0); Immature Granulocytes % (Auto) 5 % (0-0); Immature Granulocytes Auto 0.29 Thou/mm3 (0.00-0.00); Lymphocytes # (Auto) 0.5 Thou/mm3 (1.0-4.8); Lymphocytes % (Auto) 10 % (10-50); Mean Corpuscular HGB Conc 35.5 g/dl (31.0-37.0); Mean Corpuscular Hemoglobin 29.1 pg (25.0-35.0); Mean Corpuscular Volume 82 fL (80-100); Monocytes % (Auto) 1 % (0-12); Neutrophils # (Auto) 4.5 Thou/mm3 (1.8-7.7); Neutrophils % (Auto) 84 % (37-80); Nucleated Red Blood Cell # 0.02 Thou/mm3 (0.00-0.00); Nucleated Red Blood Cell % 0 /100 WBC (0); Platelet Count 254 Thou/mm3 (140-440); RDW Standard Deviation 44.6 fL (36.4-46.3); Red Blood Count 2.82 Miln/mm3 (4.00-5.20); White Blood Count 5.4 Thou/mm3 (3.6-11.0)
[2025-01-12 02:09] LABS: Hemoglobin 8.2 g/dL (12.0-16.0)
[2025-01-12] MEDS: RINGERS LACTATED 1000 ML 1,000 ML 75 ML IV (02:16)
[2025-01-12] MEDS: Magnesium Sulfate 4 GM Ivpb 4 GM/50 ML BAG IV (02:17)
[2025-01-12] MEDS: POTASSIUM CHL 10 mEq IVPB 10 MEQ/100 ML BAG 100 MEQ IV ×4 (02:17→06:14)
[2025-01-12 02:56] LABS: Base Excess 0 (-3-3); HCO3 23 mEq/L (20-26); Inspired Oxygen, FIO2 21 %; O2 Saturation 100 % (91-98); PCO2 29 mmHg (32.0-48.0); PO2 235 mmHg (83-108); pH, Arterial 7.51 (7.35-7.45)
[2025-01-12 03:03] LABS: Allen Test Performed/OK; Puncture Site Right Radial
[2025-01-12] MEDS: Norepinephrine/D5W 8mg/250ml 8 MG/250 ML BAG 6.804 MG IV (03:25)
[2025-01-12] MEDS: RINGERS LACTATED 1000 ML 1,000 ML 999 ML IV (03:35)
--- NOTE | 2025-01-12 04:19 | PC.RT ---
Addendum entered by Raúl Sneed RCP 01/12/25 04:23: change was initiated at 0350 Original Note: VENT CHANGE based on ABG, decreased VT to 325 for a 6.5ml/kg_IBW per MD Tate
--- NOTE | 2025-01-12 04:29 | XR_ITS ---
Examination: AP chest single view Technique one AP portable supine chest single view Exam date and time: January 12, 2025 0440 hours INDICATIONS: Post central line placement FINDINGS: Right internal jugular central line tip right atrium Endotracheal tube tip 5.5 cm above terrell Orogastric tube in the stomach Prominent osteopenia IMPRESSION: Right internal jugular central line tip right atrium, no pneumothorax
--- NOTE | 2025-01-12 04:53 | PD.RESPROC ---
Procedures Procedure Date / Time 01/12/25 0453 Central Line Placement Right IJ: Indication(s): shock Informed consent obtained: obtained from surrogate decision maker Time out done, and the following verified: correct patient, side and site, procedure, patient position and implants and/or equipment Patient placed on monitor/pulse ox: Yes Hand Hygiene: scrub, soap & water and alcohol-based hand rub Max Sterile Barrier Techniques used: cap, mask, sterile gown, sterile gloves and sterile full body drape Central line prep: Povidone-Iodine 1%, Chlorhexidine scrub and sterile drapes applied Local anesthesia used: lidocaine 1% Amount of anesthesia used (mL): 5 Ultrasound used for placement: Yes Sterile Technique if Ultrasound used, including sterile gel: yes Central line lumen inserted: triple Post procedure: sutured in place, good blood return, all ports aspirated, flushed, capped and sterile dressing applied Post procedure x-ray: tip of catheter in good position (Tip slightly past RA) and no pneumothorax seen Patient tolerated procedure: well EBL(ml): 2 Complications: none
[2025-01-12] MEDS: Vancomycin Inj 2,000 MG in SODIUM CHLORIDE 0.9% 500 ML 500 ML 150 MG IV (05:06)
[2025-01-12 05:11] LABS: Base Excess 0 (-3-3); HCO3 25 mEq/L (20-26); Inspired Oxygen, FIO2 100 %; O2 Saturation 99 % (91-98); PCO2 41 mmHg (32.0-48.0); PO2 145 mmHg (83-108); pH, Arterial 7.39 (7.35-7.45)
[2025-01-12 05:18] LABS: Allen Test Performed/OK; Puncture Site Arterial Line
--- NOTE | 2025-01-12 05:18 | PRELIM_ITS ---
Radiograph of the chest (single view). January 12, 2025 at 0435 hours Clinical history: Central line placement. Comparison: No prior study is available for comparison. Findings: The heart, mediastinum and pulmonary sam are unremarkable. Left basal consolidation. There is no pleural effusion. The bony thorax is unremarkable. Endotracheal tube with a distal tip at 4.7 cm from the terrell. Esophagogastric tube with distal tip below the diaphragm projecting there of the stomach. Right central line with a distal tip in the right atrium. No pneumothorax. Impression: Right central line with a distal tip in the right atrium. No pneumothorax. Report Electronically Signed By: Terrance Garcia 01/12/2025 5:18:12 AM [EST]
[2025-01-12 05:21] LABS: Basophils # (Auto) 0.1 Thou/mm3 (0.0-0.2); Basophils % (Auto) 0 % (0-2.5); Eosinophils % (Auto) 0 % (0-10); Hematocrit 26.5 % (36.0-46.0); Hemoglobin 9.2 g/dL (12.0-16.0); Immature Granulocytes % (Auto) 1 % (0-0); Immature Granulocytes Auto 0.16 Thou/mm3 (0.00-0.00); Lymphocytes # (Auto) 0.5 Thou/mm3 (1.0-4.8); Lymphocytes % (Auto) 4 % (10-50); Mean Corpuscular HGB Conc 34.7 g/dl (31.0-37.0); Mean Corpuscular Hemoglobin 29.3 pg (25.0-35.0); Mean Corpuscular Volume 84 fL (80-100); Monocytes # (Auto) 0.1 Thou/mm3 (0.0-0.8); Monocytes % (Auto) 1 % (0-12); Neutrophils # (Auto) 10.6 Thou/mm3 (1.8-7.7); Neutrophils % (Auto) 93 % (37-80); Nucleated Red Blood Cell % 0 /100 WBC (0); Platelet Count 317 Thou/mm3 (140-440); RDW Standard Deviation 46.3 fL (36.4-46.3); Red Blood Count 3.14 Miln/mm3 (4.00-5.20); White Blood Count 11.3 Thou/mm3 (3.6-11.0)
[2025-01-12 05:34] LABS: INR 1.3 (0.9-1.3); Partial Thromboplastin Time 31.3 Seconds (22.0-36.0)
[2025-01-12 06:07] LABS: Alanine Aminotransferase 17 U/L (10-49); Albumin, Serum 2.4 gm/dL (3.4-4.8); Albumin/Globulin Ratio 1.6 (1.2-2.2); Alkaline Phosphatase 83 U/L (46-116); Anion Gap 9 (7-16); Aspartate Amino Transferase 13 U/L (0-34); BUN/Creatinine Ratio 27 Ratio (12-20); Bilirubin,Total 1.6 mg/dL (0.3-1.2); Blood Urea Nitrogen 8 mg/dL (9-23); Calcium 8.6 mg/dL (8.3-10.6); Calcium (Corrected) 9.9 mg/dL (8.5-10.1); Carbon Dioxide 23.9 mMol/L (20.0-31.0); Chloride 102 mMol/L (98-107); Creatinine (Component) 0.3 mg/dL (0.6-1.3); Estimated Creatinine Clearance 183.7 mL/min (>60); Globulin 1.5 gm/dL (2.3-3.5); Glucose 131 mg/dL (74-106); Magnesium 2.7 mg/dL (1.6-2.6); Osmolality,Calculated 270 (275-295); Phosphorous 2.4 mg/dL (2.4-5.1); Potassium 3.1 mMol/L (3.4-5.1); Sodium 135 mMol/L (136-145); Total Protein 3.9 gm/dL (5.7-8.2); eGFR > 60 See Note
[2025-01-12] MEDS: RINGERS LACTATED 500 ML 500 ML 999 ML IV (06:14)
[2025-01-12] MEDS: PIPERACILLIN IV (06:17)
[2025-01-12] MEDS: TAZOBACTAM IV (06:17)
[2025-01-12] MEDS: VASOPRESSIN IN NS IVPB 20 UNIT/100 ML BAG 9 UNIT IV ×2 (06:34→15:30)
[2025-01-12 06:50] LABS: Lactate (Lactic Acid) 1.7 mMol/L (0.4-2.0)
[2025-01-12] MEDS: POTASSIUM CHL 20 mEq IVPB 20 MEQ/100 ML BAG 50 MEQ IV ×2 (07:32→09:44)
[2025-01-12 07:51] LABS: Alanine Aminotransferase 16 U/L (10-49); Albumin, Serum 2.1 gm/dL (3.4-4.8); Albumin/Globulin Ratio 1.6 (1.2-2.2); Alkaline Phosphatase 69 U/L (46-116); Anion Gap 5 (7-16); Aspartate Amino Transferase 13 U/L (0-34); BUN/Creatinine Ratio 23 Ratio (12-20); Bilirubin,Total 1.3 mg/dL (0.3-1.2); Blood Urea Nitrogen 7 mg/dL (9-23); Calcium (Corrected) 9.5 mg/dL (8.5-10.1); Carbon Dioxide 24.5 mMol/L (20.0-31.0); Chloride 105 mMol/L (98-107); Creatinine (Component) 0.3 mg/dL (0.6-1.3); Estimated Creatinine Clearance 178.3 mL/min (>60); Globulin 1.3 gm/dL (2.3-3.5); Glucose 128 mg/dL (74-106); Osmolality,Calculated 268 (275-295); Potassium 3.6 mMol/L (3.4-5.1); Sodium 134 mMol/L (136-145); Total Protein 3.4 gm/dL (5.7-8.2); eGFR > 60 See Note
[2025-01-12 08:04] LABS: Base Excess 0 (-3-3); HCO3 25 mEq/L (20-26); Inspired Oxygen, FIO2 30 %; O2 Saturation 99 % (91-98); PCO2 40 mmHg (32.0-48.0); PO2 152 mmHg (83-108)
[2025-01-12 08:05] LABS: Allen Test Not Performed; Puncture Site Right Radial
[2025-01-12] MEDS: PANTOPRAZOLE INJ 40 MG VIAL IVP (08:18)
--- NOTE | 2025-01-12 09:18 | PD.RESCONSUL ---
HPI Data of Consult Requesting Physician: Tyerll Pang MD Admitting Provider: Tyrell Pang MD Attending Provider: Tyrell Pang MD [facility] Narrative History of present illness: Ms. Smith is a 59-year-old female with past medical history of inflammatory bowel disease/ulcerative colitis presented to [facility] with a chief complaint of worsening abdominal pain and discomfort. Patient reported that she was recently discharged from the hospital on 12/21/2024 for ulcerative colitis flare, significant abdominal pain, patient reported that post discharge her symptoms have been worsening reported worsening weakness, loose stools green in color for about 3 weeks, patient complained of significant abdominal pain and tenderness. Reported that she was evaluated by GI specialist earlier this morning who advised that she goes to ER for further evaluation. In ER patient was found to have pneumoperitoneum secondary to gastric perforation versus colitis. General surgery was consulted ED and patient was taken to the OR for emergent surgery. ED Course: ED Vitals: On presentation in ED BP 90/61, P108, RR 15, temp 98.1, O2 sat 99 on room air ED Labs: ED labs significant for WBC 9.8, RBC 2.69, hemoglobin 7.8, hematocrit 23.2, platelet 536, neutrophil 87%, PT 13.5, sodium 126, potassium 2.9, chloride 89, creatinine 0.3, osmolality 253, total protein 4.7, albumin 2.6, globulin 2.1 ED Imaging:CT abdomen pelvis shows pneumoperitoneum most severe droplets adjacent to stomach, diffuse nonspecific colitis possible source of perforation stomach versus colon. chest x-ray shows minor atelectasis left base. ED Treatment:Patient was given 1 L NS bolus, Zosyn x 1, Flagyl x 1 in ED. General Surgery was consulted in ED, patient admitted for emergent surgery. cc:: cc: Tyrell Pang MD Exam Vital Signs Temp Pulse Resp BP Pulse Ox O2 Del Method FiO2 96.8 F 82 16 103/65 100 Mechanical Ventilation 30 01/12/25 08:00 01/12/25 09:00 01/12/25 09:00 01/12/25 09:00 01/12/25 09:00 01/12/25 09:00 01/12/25 09:00 Results Labs 01/12/25 04:40 01/12/25 06:40 Labs: Short CBC 01/11/25 01/12/25 01/12/25 Range/Units 17:55 01:14 04:40 WBC 9.8 5.4 D 11.3 H D (3.6-11.0) Thou/mm3 Hgb 7.8 L 8.2 L 9.2 L (12.0-16.0) g/dL Hct 23.2 L 23.1 L 26.5 L (36.0-46.0) % Plt Count 536 H D 254 D 317 D (140-440) Thou/mm3 BMP 01/11/25 01/12/25 01/12/25 17:55 01:14 04:40 Sodium 126 L 136 D 135 L Potassium 2.9 L D 2.7 L* 3.1 L Chloride 89 L 105 102 Carbon Dioxide 28.9 22.8 23.9 BUN 12 8 L 8 L Creatinine 0.3 L 0.4 L 0.3 L Glucose 92 126 H 131 H Calcium 8.0 L 8.9 8.6 01/12/25 06:40 Sodium 134 L Potassium 3.6 D Chloride 105 Carbon Dioxide 24.5 BUN 7 L Creatinine 0.3 L Glucose 128 H Calcium 8.0 L Liver Function 01/11/25 01/12/25 01/12/25 Range/Units 17:55 01:14 04:40 Total Bilirubin 0.6 1.0 1.6 H D (0.3-1.2) mg/dL AST 11 19 13 (0-34) U/L ALT 19 18 17 (10-49) U/L Alkaline Phosphatase 111 81 D 83 (46-116) U/L Albumin 2.6 L 2.4 L 2.4 L (3.4-4.8) gm/dL 01/12/25 Range/Units 06:40 Total Bilirubin 1.3 H (0.3-1.2) mg/dL AST 13 (0-34) U/L ALT 16 (10-49) U/L Alkaline Phosphatase 69 (46-116) U/L Albumin 2.1 L (3.4-4.8) gm/dL Urine 01/11/25 Range/Units 20:14 Urine Color Colorless A (Lt Yel-Yel) Urine Clarity Clear (Clear/Hazy) Urine pH 7.0 (5.0-7.0) Ur Specific [place] 1.024 (1.001-1.035) Urine Protein Negative (Neg - Trace) Urine Glucose (UA) Negative (Negative) ABG Interpretation ABG results: 01/12/25 01/12/25 01/12/25 02:43 04:40 07:51 ABG pH 7.51 H 7.39 D 7.40 ABG pCO2 29 L 41 D 40 ABG pO2 235 H 145 H D 152 H ABG HCO3 23 25 25 ABG O2 Saturation 100 H 99 H 99 H ABG Base Excess 0 0 0 Quality Measures Quality Measures none Medications Home Medications and Allergies Home Medications ?Medication ?Instructions ?Recorded ?Confirmed ?Type ursodiol 250 mg tablet 250 mg PO TID ##90 02/17/17 01/11/25 History loperamide 2 mg capsule 2 mg PO Q6H PRN Diarrhea 12/20/24 01/11/25 History ascorbic acid (vitamin C) 500 mg 500 mg PO BID 01/11/25 01/11/25 History tablet (Vitamin C) ferrous sulfate 325 mg (65 mg 325 mg PO DAILY 01/11/25 01/11/25 History iron) tablet folic acid 1 mg tablet 400 mcg PO QDAY 01/11/25 01/11/25 History mesalamine 500 mg capsule,extended 500 mg PO QID UC 01/11/25 01/11/25 History release prednisone 5 mg tablet 5 mg PO TID 01/11/25 01/11/25 History Allergies Allergy/AdvReac Type Severity Reaction Status Date / Time ciprofloxacin (From Cipro) Allergy Intermediate Gastrointestinal Verified 12/17/24 10:35 Upset levofloxacin Allergy Intermediate Rash Verified 12/17/24 10:35 ibuprofen AdvReac Intermediate Gastrointestinal Verified 12/17/24 10:35 Upset Visit Medications Piperacillin/Tazobactam/Dextrose (Zosyn) 100 mls @ 25 mls/hr IV Q8HR [facility] Stop: 01/12/25 12:00 Last Admin: 01/12/25 06:17 Dose: 25 mls/hr Propofol (Diprivan Ivpb) 1,000 mg in 100 mls @ 2.177 mls/hr IV .Q24H PRN; Protocol PRN Reason: PER PROTOCOL Stop: 02/11/25 01:04 Last Titration: 01/12/25 08:00 Dose: Infused Fentanyl Citrate (Sublimaze Inj 2,500 Mcg/250 Ml Bag) 2,500 mcg in 250 mls @ 2.5 mls/hr IV .Q24H PRN; Protocol PRN Reason: PER PROTOCOL Stop: 01/17/25 01:05 Last Titration: 01/12/25 08:00 Dose: 175 mcg/hr, 17.5 mls/hr Lactated Ringer's (Lactated Ringers) 1,000 mls @ 75 mls/hr IV .[id number] ONE Stop: 01/12/25 15:01 Last Admin: 01/12/25 02:16 Dose: 75 mls/hr Norepinephrine/Dextrose (Levophed In D5w 8mg/250ml) 8 mg in 250 mls @ 6.804 mls/hr IV .Q24H PRN; Protocol PRN Reason: PER PROTOCOL Stop: 02/11/25 05:02 Last Titration: 01/12/25 08:36 Dose: 0.32 mcg/kg/min, 43.545 mls/hr Vasopressin/Sodium Chloride (Vasostrict/Ns Ivpb) 20 unit in 100 mls @ 9 mls/hr IV .Q11H7M PRN; Protocol PRN Reason: PER PROTOCOL Stop: 02/11/25 05:18 Last Admin: 01/12/25 06:34 Dose: 0.03 unit/min, 9 mls/hr Potassium Chloride (Kcl Ivpb) 20 meq in 100 mls @ 50 mls/hr IV Q2H [facility] Stop: 01/12/25 10:26 Last Admin: 01/12/25 07:32 Dose: 50 mls/hr Piperacillin Sod/Tazobactam (Sod 4.5 gm/ Sodium Chloride) 100 mls @ 25 mls/hr IV Q8HR [facility] Stop: 01/18/25 23:23 Vancomycin HCl/Dextrose (Vancomycin/D5w 1,250 Mg Ivpb) 250 mls @ 120 mls/hr IV BID@1000,2200 [facility]; Protocol Stop: 01/19/25 21:59 Pantoprazole Sodium (Pantoprazole Inj 40 Mg Vial) 40 mg IVP QDAY [facility] Stop: 02/11/25 08:59 Last Admin: 01/12/25 08:18 Dose: 40 mg Pharmacy Consult (Vancomycin Pharmacy To Dose 1 Each Each) 1 each IV QDAY PRN PRN Reason: PROTOCOL Stop: 02/11/25 08:59 Discontinued Medications Sodium Chloride (Ns) 1,000 mls @ 999 mls/hr IV .Q1H1M ONE Stop: 01/11/25 17:50 Last Infusion: 01/11/25 19:17 Dose: Infused Piperacillin/Tazobactam/Dextrose (Zosyn) 3.375 gm in 50 mls @ 100 mls/hr IV X1 ONE Stop: 01/11/25 21:29 Last Admin: 01/11/25 21:11 Dose: Not Given Potassium Chloride (Kcl Ivpb) 10 meq in 100 mls @ 100 mls/hr IV X1 ONE Stop: 01/11/25 22:02 Metronidazole (Flagyl 500 Mg Iv) 500 mg in 100 mls @ 200 mls/hr IV Q8HR [facility] Stop: 01/18/25 21:07 Last Admin: 01/11/25 21:45 Dose: 200 mls/hr Piperacillin/Tazobactam/Dextrose (Zosyn) 3.375 gm in 50 mls @ 12.5 mls/hr IV Q8HR [facility] Stop: 01/19/25 05:59 Piperacillin/Tazobactam/Dextrose (Zosyn) 3.375 gm in 50 mls @ 100 mls/hr IV X1 ONE Stop: 01/11/25 21:44 Last Admin: 01/11/25 21:53 Dose: 100 mls/hr Potassium Chloride (Kcl Ivpb) 10 meq in 100 mls @ 100 mls/hr IV X1 ONE Stop: 01/12/25 00:43 Potassium Chloride (Kcl Ivpb) 10 meq in 100 mls @ 100 mls/hr IV Q1H [facility] Stop: 01/12/25 06:02 Last Admin: 01/12/25 06:14 Dose: 100 mls/hr Magnesium Sulfate (Magnesium Sulfate Ivpb) 4 gm in 50 mls @ 12.5 mls/hr IV X1 ONE Stop: 01/12/25 06:03 Last Admin: 01/12/25 02:17 Dose: 12.5 mls/hr Norepinephrine Bitartrate (Levophed In Ns 16mg/250ml) 16 mg in 250 mls @ 3.402 mls/hr IV .Q24H PRN; Protocol PRN Reason: PER PROTOCOL Stop: 02/11/25 03:28 Lactated Ringer's (Lactated Ringers) 1,000 mls @ 999 mls/hr IV .Q1H1M ONE Stop: 01/12/25 04:31 Last Admin: 01/12/25 03:35 Dose: 999 mls/hr Vancomycin HCl 2,000 mg/ (Sodium Chloride) 500 mls @ 150 mls/hr IV X1 ONE Stop: 01/12/25 07:04 Last Admin: 01/12/25 05:06 Dose: 150 mls/hr Lactated Ringer's (Lactated Ringers) 500 mls @ 999 mls/hr IV .Q31M ONE Stop: 01/12/25 05:49 Last Admin: 01/12/25 06:14 Dose: 999 mls/hr Potassium Chloride (Potassium Chloride 20 Meq Tabcr) 40 meq PO X1 ONE Stop: 01/11/25 20:30 Last Admin: 01/11/25 21:11 Dose: Not Given
[2025-01-12] MEDS: PROPOFOL 1,000 MG IVPB 1,000 MG/100 ML VIAL 8.709 MG IV (09:43)
[2025-01-12 10:10] LABS: Lactate (Lactic Acid) 1.6 mMol/L (0.4-2.0)
[2025-01-12 10:33] LABS: Potassium 4.6 mMol/L (3.4-5.1)
--- NOTE | 2025-01-12 11:27 | PC.SS ---
Initial assessment: patient currently admitted to ICU, family at bed side. Patient's sister, Yolis Gardner assisted with providing information on behalf of the patient. Patient lives at home at confirmed address on facesheet. Patient lives alone, however, family has been staying with the patient the last few days to assist with her care. Patient utilizes a walker at home and assistance from family to complete ADL's. Patient does not have home O2. [facility]CP is [facility] Patient discharge plan remains pending at this time, family is considering possible need for placement depending on the patient's condition. Yolis informed no POA or advance directive in place, however she identified to be the primary point of contact for alternate medical decision making on behalf of the patient. care services manager to follow up on further needs. D/c plan: Pending Next of kin: sister, Yolis Gardner
[2025-01-12] MEDS: PIPER/TAZO INJ 4.5 GM in SODIUM CHLORIDE 0.9% (P) 100 ML IV ×2 (13:22→22:24)
[2025-01-12] MEDS: Norepinephrine/D5W 8mg/250ml 8 MG/250 ML BAG 43.545 MG IV (13:23)
[2025-01-12 13:53] LABS: Lactate (Lactic Acid) 2.2 mMol/L (0.4-2.0)
[2025-01-12] MEDS: fentaNYL 2,500 MCG/250 ML BAG 2,500 MCG/250 ML BAG 17.5 MCG IV (14:11)
--- NOTE | 2025-01-12 15:54 | PC.SS ---
SS update: patient to receive central line placement.
[2025-01-12 16:51] LABS: Reflex Lactate? Y
[2025-01-12] MEDS: MULTIVITAMIN IV (17:42)
[2025-01-12] MEDS: AMINO ACID IV (17:42)
[2025-01-12] MEDS: [UNRECOGNIZED DRUG - OTHER] IV (17:42)
[2025-01-12] MEDS: SOD PHOS ADDITIVE IV (17:42)
--- NOTE | 2025-01-12 18:40 | EKG_ITS ---
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
[2025-01-12] MEDS: FLUCONAZOLE/NS 400 MG IVPB 400 MG/200 ML BAG 100 MG IV (19:12)
--- NOTE | 2025-01-12 19:18 | ESPR_ITS ---
<Statement entered by Mirza Beckman MD - 01/13/25 08:13> TOTAL CC TIME: 45 MIN I saw and evaluated the patient. I reviewed the resident?s note and agree with findings and plan as documented in the resident?s note. Upon my evaluation, this patient had a high probability of imminent or life- threatening deterioration due to septic shock Which required my direct attention, intervention, and personal management. This time is exclusive of time spent on procedures, which are documented separately if performed. Multiple bowel perforations noted in the intraoperative note. Patient has extensive history of inflammatory bowel disease. 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 Feculent peritonitis was noted therefore she is broadly covered with antibiotics and antifungal Requiring vasopressor support to maintain mean arterial pressure greater than 65. POCUS exam confirms fluid resuscitated status. Track lactic acid as needed. Monitor carefully in the ICU, patient is scheduled to be taken back to the OR soon Documentation for date of: 01/12/25 Subjective Subjective Interval history: Sophia Smith is a 59-year-old female with past medical history of inflammatory bowel disease/ulcerative colitis that was recently discharged on 12/21/2024 for IBS flareup that presented to [facility] with worsening abdominal pain and discomfort for 3 weeks. In ED, imaging showed pneumoperitoneum and was into OR for emergent exploratory laparotomy. During procedure, found to have multiple perforations of both small and large intestines. Per Dr. Crooks, patient will require surgery again on later date (tentatively on Wednesday pending on pressor support) and will require sedation and mechanical ventilation until then. Peritoneum remains open and started on TPN (no enteral feeds). ICU consulted for further management of critically ill patient. 01/12: Seen and examined at bedside in ICU. Remains on sedation with propofol and fentanyl as well as Levophed and vasopressin. Had central and A-line placed overnight and wound vac in place draining dark-brown material. Noted to have 1 L of urine output overnight that significantly decreased during day although she received 2.5 L IVF since being in ICU. Bedside ultrasound showed LV with good ejection fraction and IVC shows adequate fluid resuscitation. TPN started and fluconazole added given upper GI perforation. Sisters updated regarding patient's current condition and plan to go back to OR at later time. Exam Vital Signs Temp Pulse Resp BP Pulse Ox O2 Del Method FiO2 96.8 F 73 16 127/69 100 Mechanical Ventilation 30 01/12/25 16:00 01/12/25 18:15 01/12/25 18:15 01/12/25 18:15 01/12/25 18:15 01/12/25 18:00 01/12/25 18:00 Narrative Exam General: sedated and mechanically ventilated HEENT: NC/AT, mucous membranes moist, bilateral sclera anicteric Cardiovascular: regular rate and rhythm, S1/S2 present, no murmurs appreciated Pulmonary: clear to auscultation bilaterally Abdominal: ex-lap incision with wound vac in place, soft, non-distended Musculoskeletal: normal ROM, no peripheral edema Skin: warm and dry, intact, no rashes Objective Labs 01/12/25 04:40 01/12/25 09:50 Labs: Laboratory Results - last 24 hr 01/11/25 01/11/25 01/11/25 17:55 20:14 21:32 WBC RBC Hgb Hct MCV MCH MCHC RDW Std Deviation Plt Count Neut % (Auto) Lymph % (Auto) [place] % (Auto) Eos % (Auto) Baso % (Auto) Neut # (Auto) Lymph # (Auto) [place] # (Auto) Eos # (Auto) Baso # (Auto) Immature Gran # (Auto) Absolute Nucleated RBC Immature Gran % Nucleated RBC % PT INR APTT Puncture Site ABG pH ABG pCO2 ABG pO2 ABG HCO3 ABG O2 Saturation ABG Base Excess FiO2 Sodium Potassium Chloride Carbon Dioxide Anion Gap BUN Creatinine Estim Creat Clear Calc eGFR BUN/Creatinine Ratio Glucose Calculated Osmolality Lactic Acid 0.8 Calcium Corrected Calcium Phosphorus Magnesium 1.8 Total Bilirubin AST ALT Alkaline Phosphatase Total Protein Albumin Globulin Albumin/Globulin Ratio Procalcitonin 0.19 Ur Collection Type Clean Catch Urine Color Colorless A Urine Clarity Clear Urine pH 7.0 Ur Specific [place] 1.024 Urine Protein Negative Urine Glucose (UA) Negative Urine Ketones 1+ A Urine Blood Negative Urine Nitrite Negative Urine Bilirubin Negative Urine Urobilinogen (Auto) Negative Ur Leukocyte Esterase Positive Urine RBC 1 Urine WBC 1 Ur Squamous Epith Cells 0 Urine Bacteria None Blood Type O Positive Antibody Screen NEGATIVE Crossmatch See Detail Blood Bank Wristband ID Yes Blood Bank Comment FFP Ready 01/12/25 01/12/25 01/12/25 01:14 02:43 04:40 WBC 5.4 D 11.3 H D RBC 2.82 L 3.14 L Hgb 8.2 L 9.2 L Hct 23.1 L 26.5 L MCV 82 84 MCH 29.1 29.3 MCHC 35.5 34.7 RDW Std Deviation 44.6 46.3 Plt Count 254 D 317 D Neut % (Auto) 84 H 93 H Lymph % (Auto) 10 4 L [place] % (Auto) 1 1 Eos % (Auto) 0 0 Baso % (Auto) 1 0 Neut # (Auto) 4.5 10.6 H Lymph # (Auto) 0.5 L 0.5 L [place] # (Auto) 0.0 0.1 Eos # (Auto) 0.0 0.0 Baso # (Auto) 0.0 0.1 Immature Gran # (Auto) 0.29 H 0.16 H Absolute Nucleated RBC 0.02 H 0.00 Immature Gran % 5 H 1 H Nucleated RBC % 0 0 PT 14.0 H INR 1.3 APTT 31.3 Puncture Site Right Radial Arterial Line ABG pH 7.51 H 7.39 D ABG pCO2 29 L 41 D ABG pO2 235 H 145 H D ABG HCO3 23 25 ABG O2 Saturation 100 H 99 H ABG Base Excess 0 0 FiO2 21 100 Sodium 136 D 135 L Potassium 2.7 L* 3.1 L Chloride 105 102 Carbon Dioxide 22.8 23.9 Anion Gap 8 9 BUN 8 L 8 L Creatinine 0.4 L 0.3 L Estim Creat Clear Calc 137.8 183.7 eGFR > 60 > 60 BUN/Creatinine Ratio 20 27 H Glucose 126 H 131 H Calculated Osmolality 272 L 270 L Lactic Acid Calcium 8.9 8.6 Corrected Calcium 10.2 H 9.9 Phosphorus 2.4 Magnesium 1.5 L 2.7 H Total Bilirubin 1.0 1.6 H D AST 19 13 ALT 18 17 Alkaline Phosphatase 81 D 83 Total Protein 4.0 L 3.9 L Albumin 2.4 L 2.4 L Globulin 1.6 L 1.5 L Albumin/Globulin Ratio 1.5 1.6 Procalcitonin Ur Collection Type Urine Color Urine Clarity Urine pH Ur Specific [place] Urine Protein Urine Glucose (UA) Urine Ketones Urine Blood Urine Nitrite Urine Bilirubin Urine Urobilinogen (Auto) Ur Leukocyte Esterase Urine RBC Urine WBC Ur Squamous Epith Cells Urine Bacteria Blood Type Antibody Screen Crossmatch Blood Bank Wristband ID Blood Bank Comment 01/12/25 01/12/25 01/12/25 06:40 07:51 09:50 WBC RBC Hgb Hct MCV MCH MCHC RDW Std Deviation Plt Count Neut % (Auto) Lymph % (Auto) [place] % (Auto) Eos % (Auto) Baso % (Auto) Neut # (Auto) Lymph # (Auto) [place] # (Auto) Eos # (Auto) Baso # (Auto) Immature Gran # (Auto) Absolute Nucleated RBC Immature Gran % Nucleated RBC % PT INR APTT Puncture Site Right Radial ABG pH 7.40 ABG pCO2 40 ABG pO2 152 H ABG HCO3 25 ABG O2 Saturation 99 H ABG Base Excess 0 FiO2 30 Sodium 134 L Potassium 3.6 D 4.6 D Chloride 105 Carbon Dioxide 24.5 Anion Gap 5 L BUN 7 L Creatinine 0.3 L Estim Creat Clear Calc 178.3 eGFR > 60 BUN/Creatinine Ratio 23 H Glucose 128 H Calculated Osmolality 268 L Lactic Acid 1.7 1.6 Calcium 8.0 L Corrected Calcium 9.5 Phosphorus Magnesium Total Bilirubin 1.3 H AST 13 ALT 16 Alkaline Phosphatase 69 Total Protein 3.4 L Albumin 2.1 L Globulin 1.3 L Albumin/Globulin Ratio 1.6 Procalcitonin Ur Collection Type Urine Color Urine Clarity Urine pH Ur Specific [place] Urine Protein Urine Glucose (UA) Urine Ketones Urine Blood Urine Nitrite Urine Bilirubin Urine Urobilinogen (Auto) Ur Leukocyte Esterase Urine RBC Urine WBC Ur Squamous Epith Cells Urine Bacteria Blood Type Antibody Screen Crossmatch Blood Bank Wristband ID Blood Bank Comment 01/12/25 13:22 WBC RBC Hgb Hct MCV MCH MCHC RDW Std Deviation Plt Count Neut % (Auto) Lymph % (Auto) [place] % (Auto) Eos % (Auto) Baso % (Auto) Neut # (Auto) Lymph # (Auto) [place] # (Auto) Eos # (Auto) Baso # (Auto) Immature Gran # (Auto) Absolute Nucleated RBC Immature Gran % Nucleated RBC % PT INR APTT Puncture Site ABG pH ABG pCO2 ABG pO2 ABG HCO3 ABG O2 Saturation ABG Base Excess FiO2 Sodium Potassium Chloride Carbon Dioxide Anion Gap BUN Creatinine Estim Creat Clear Calc eGFR BUN/Creatinine Ratio Glucose Calculated Osmolality Lactic Acid 2.2 H Calcium Corrected Calcium Phosphorus Magnesium Total Bilirubin AST ALT Alkaline Phosphatase Total Protein Albumin Globulin Albumin/Globulin Ratio Procalcitonin Ur Collection Type Urine Color Urine Clarity Urine pH Ur Specific [place] Urine Protein Urine Glucose (UA) Urine Ketones Urine Blood Urine Nitrite Urine Bilirubin Urine Urobilinogen (Auto) Ur Leukocyte Esterase Urine RBC Urine WBC Ur Squamous Epith Cells Urine Bacteria Blood Type Antibody Screen Crossmatch Blood Bank Wristband ID Blood Bank Comment ABG Interpretation ABG results: 01/12/25 01/12/25 01/12/25 02:43 04:40 07:51 ABG pH 7.51 H 7.39 D 7.40 ABG pCO2 29 L 41 D 40 ABG pO2 235 H 145 H D 152 H ABG HCO3 23 25 25 ABG O2 Saturation 100 H 99 H 99 H ABG Base Excess 0 0 0 Quality Measures Quality Measures none Assessment & Plan Assessment Current Active Medications: Generic Name Dose Route Start Last Admin Trade Name Freq PRN Reason Stop Dose Admin Propofol 1,000 mg in 100 mls @ 2.177 mls/hr 01/12/25 01:05 01/12/25 18:00 Diprivan Ivpb IV 02/11/25 01:04 Infused .Q24H PRN Titration PER PROTOCOL Protocol 5 MCG/KG/MIN Fentanyl Citrate 2,500 mcg in 250 mls @ 2.5 mls/hr 01/12/25 01:06 01/12/25 18:00 Sublimaze Inj 2,500 Mcg/250 Ml Bag IV 01/17/25 01:05 175 mcg/hr .Q24H PRN 17.5 mls/hr PER PROTOCOL Titration Protocol 25 MCG/HR Norepinephrine/Dextrose 8 mg in 250 mls @ 6.804 mls/hr 01/12/25 05:03 01/12/25 18:00 Levophed In D5w 8mg/250ml IV 02/11/25 05:02 0.32 mcg/kg/min .Q24H PRN 43.545 mls/hr PER PROTOCOL Titration Protocol 0.05 MCG/KG/MIN Vasopressin/Sodium Chloride 20 unit in 100 mls @ 9 mls/hr 01/12/25 05:19 01/12/25 15:30 Vasostrict/Ns Ivpb IV 02/11/25 05:18 0.03 unit/min .Q11H7M PRN 9 mls/hr PER PROTOCOL Administration Protocol 0.03 UNIT/MIN Piperacillin Sod/Tazobactam 100 mls @ 25 mls/hr 01/12/25 14:00 01/12/25 17:41 Sod 4.5 gm/ Sodium Chloride IV 01/18/25 23:23 0 mls/hr Q8HR CAMERON Titration Vancomycin HCl/Dextrose 250 mls @ 120 mls/hr 01/12/25 22:00 Vancomycin/D5w 1,250 Mg Ivpb IV 01/19/25 21:59 BID@1000,2200 CAMERON Protocol Fat Emulsion Intravenous 500 mls @ 32 mls/hr 01/13/25 18:00 Intralipid 20% Iv IV 02/12/25 17:59 TUTHSA@1800 CAMERON Sodium Phosphate 45 mmol/ 2,025 mls @ 30 mls/hr 01/12/25 18:00 01/12/25 17:42 Multivitamins/Minerals 10 ml/ IV 01/13/25 17:59 30 mls/hr Amino Acids QDAY@1800 CAMERON Administration Fluconazole 400 mg in 200 mls @ 100 mls/hr 01/12/25 18:39 01/12/25 19:12 Diflucan/Ns Ivpb IV 01/19/25 18:38 100 mls/hr QDAY@2100 CAMERON Administration Pantoprazole Sodium 40 mg 01/12/25 09:00 01/12/25 08:18 Pantoprazole Inj 40 Mg Vial IVP 02/11/25 08:59 40 mg QDAY CAMERON Administration Pharmacy Consult 1 each 01/12/25 09:00 Vancomycin Pharmacy To Dose 1 Each Each IV 02/11/25 08:59 QDAY PRN PROTOCOL Plan Sophia Smith is a 59-year-old female with past medical history of inflammatory bowel disease/ulcerative colitis that was recently discharged on 12/21/2024 for IBS flareup and is admitted on 01/11 for pneumoperitoneum requiring emergent ex- lap and admitted to the ICU for further management until patient returns to the OR on later date. Neurological #Sedated and on mechanical ventilation - Continue propofol and fentanyl Cardiovascular Stable, no active disease Pulmonary #Mechanical ventilation ABG at 0440: pH 7.39, pCO2 41, pO2 145 ABG at 0751: pH 7.4, pCO2 40, pO2 152 - VT 325, RR 16, PEEP 5, FiO2 30% Renal #Hypokalemia, resolved Admitted with K of 2.9 that decreased to 2.7 and since received 70 mEq and is since been corrected to 4.6 - Continue to monitor and replete #Hypomagnesemia, resolved - Continue to monitor and replete #Hypoosmolar hypochloremic hyponatremia, improved Suspect decreased p.o. intake Admitted with sodium of 126 that improved to 134 after IVF Gastrointestinal #Pneumoperitoneum s/p ex lap Noted to have pneumoperitoneum on CT imaging and emergently admitted to surgery. Found to have multiple perforations in both large and small intestines and is status-post resection of small and large bowel. Remains with open wound and needs further surgery with date to be determined. - Dr Crooks following - Started TPN on 01/12 - NG tube with LIS #History of IBS Likely cause of perforations with ulcerative colitis - GI and surgery following patient appreciate recommendations Heme #Normocytic anemia, improved Likely secondary to ulcerative colitis Presented with hemoglobin of 7.8 that improved to 9.2 after 4 units PRBC, and is also status-post 1 unit FFP Endocrine Stable, no active disease Infectious disease #Peritonitis #Colitis Imaging showing diffuse nonspecific colitis secondary to perforations - Fluconazole 400 mg daily, Zosyn, and vancomycin - Follow-up blood cultures Hospital management: Disposition: mechanically ventiated, pending second operation Fluids: none Sedatives: propofol and fentanyl Pressors: levophed and vasopressin Diet: TPN Lines: right IJ central, arterial line, wound vac GI prophylaxis: pantoprazole IV CODE STATUS: full code ----- Plan discussed with attending physician Dr. Karuna Pavon MD PGY-1 Internal Medicine
--- NOTE | 2025-01-12 21:03 | ESPR_ITS ---
Documentation for date of: 01/12/25 Subjective Subjective Interval history: Patient evaluated mechanically ventilated patient is status post exploratory laparotomy with subtotal colectomy as there were multiple perforations of the colon and the small bowel which was resected en bloc Exam Vital Signs Temp Pulse Resp BP Pulse Ox O2 Del Method FiO2 96.8 F 73 16 127/69 100 Mechanical Ventilation 30 01/12/25 16:00 01/12/25 18:15 01/12/25 18:15 01/12/25 18:15 01/12/25 18:15 01/12/25 18:00 01/12/25 18:00 Objective Labs 01/12/25 04:40 01/12/25 09:50 Labs: Laboratory Results - last 24 hr 01/11/25 01/11/25 01/11/25 17:55 20:14 21:32 WBC RBC Hgb Hct MCV MCH MCHC RDW Std Deviation Plt Count Neut % (Auto) Lymph % (Auto) [place] % (Auto) Eos % (Auto) Baso % (Auto) Neut # (Auto) Lymph # (Auto) [place] # (Auto) Eos # (Auto) Baso # (Auto) Immature Gran # (Auto) Absolute Nucleated RBC Immature Gran % Nucleated RBC % PT INR APTT Puncture Site ABG pH ABG pCO2 ABG pO2 ABG HCO3 ABG O2 Saturation ABG Base Excess FiO2 Sodium Potassium Chloride Carbon Dioxide Anion Gap BUN Creatinine Estim Creat Clear Calc eGFR BUN/Creatinine Ratio Glucose Calculated Osmolality Lactic Acid 0.8 Calcium Corrected Calcium Phosphorus Magnesium 1.8 Total Bilirubin AST ALT Alkaline Phosphatase Total Protein Albumin Globulin Albumin/Globulin Ratio Procalcitonin 0.19 Ur Collection Type Clean Catch Urine Color Colorless A Urine Clarity Clear Urine pH 7.0 Ur Specific [place] 1.024 Urine Protein Negative Urine Glucose (UA) Negative Urine Ketones 1+ A Urine Blood Negative Urine Nitrite Negative Urine Bilirubin Negative Urine Urobilinogen (Auto) Negative Ur Leukocyte Esterase Positive Urine RBC 1 Urine WBC 1 Ur Squamous Epith Cells 0 Urine Bacteria None Blood Type O Positive Antibody Screen NEGATIVE Crossmatch See Detail Blood Bank Wristband ID Yes Blood Bank Comment FFP Ready 01/12/25 01/12/25 01/12/25 01:14 02:43 04:40 WBC 5.4 D 11.3 H D RBC 2.82 L 3.14 L Hgb 8.2 L 9.2 L Hct 23.1 L 26.5 L MCV 82 84 MCH 29.1 29.3 MCHC 35.5 34.7 RDW Std Deviation 44.6 46.3 Plt Count 254 D 317 D Neut % (Auto) 84 H 93 H Lymph % (Auto) 10 4 L [place] % (Auto) 1 1 Eos % (Auto) 0 0 Baso % (Auto) 1 0 Neut # (Auto) 4.5 10.6 H Lymph # (Auto) 0.5 L 0.5 L [place] # (Auto) 0.0 0.1 Eos # (Auto) 0.0 0.0 Baso # (Auto) 0.0 0.1 Immature Gran # (Auto) 0.29 H 0.16 H Absolute Nucleated RBC 0.02 H 0.00 Immature Gran % 5 H 1 H Nucleated RBC % 0 0 PT 14.0 H INR 1.3 APTT 31.3 Puncture Site Right Radial Arterial Line ABG pH 7.51 H 7.39 D ABG pCO2 29 L 41 D ABG pO2 235 H 145 H D ABG HCO3 23 25 ABG O2 Saturation 100 H 99 H ABG Base Excess 0 0 FiO2 21 100 Sodium 136 D 135 L Potassium 2.7 L* 3.1 L Chloride 105 102 Carbon Dioxide 22.8 23.9 Anion Gap 8 9 BUN 8 L 8 L Creatinine 0.4 L 0.3 L Estim Creat Clear Calc 137.8 183.7 eGFR > 60 > 60 BUN/Creatinine Ratio 20 27 H Glucose 126 H 131 H Calculated Osmolality 272 L 270 L Lactic Acid Calcium 8.9 8.6 Corrected Calcium 10.2 H 9.9 Phosphorus 2.4 Magnesium 1.5 L 2.7 H Total Bilirubin 1.0 1.6 H D AST 19 13 ALT 18 17 Alkaline Phosphatase 81 D 83 Total Protein 4.0 L 3.9 L Albumin 2.4 L 2.4 L Globulin 1.6 L 1.5 L Albumin/Globulin Ratio 1.5 1.6 Procalcitonin Ur Collection Type Urine Color Urine Clarity Urine pH Ur Specific [place] Urine Protein Urine Glucose (UA) Urine Ketones Urine Blood Urine Nitrite Urine Bilirubin Urine Urobilinogen (Auto) Ur Leukocyte Esterase Urine RBC Urine WBC Ur Squamous Epith Cells Urine Bacteria Blood Type Antibody Screen Crossmatch Blood Bank Wristband ID Blood Bank Comment 01/12/25 01/12/25 01/12/25 06:40 07:51 09:50 WBC RBC Hgb Hct MCV MCH MCHC RDW Std Deviation Plt Count Neut % (Auto) Lymph % (Auto) [place] % (Auto) Eos % (Auto) Baso % (Auto) Neut # (Auto) Lymph # (Auto) [place] # (Auto) Eos # (Auto) Baso # (Auto) Immature Gran # (Auto) Absolute Nucleated RBC Immature Gran % Nucleated RBC % PT INR APTT Puncture Site Right Radial ABG pH 7.40 ABG pCO2 40 ABG pO2 152 H ABG HCO3 25 ABG O2 Saturation 99 H ABG Base Excess 0 FiO2 30 Sodium 134 L Potassium 3.6 D 4.6 D Chloride 105 Carbon Dioxide 24.5 Anion Gap 5 L BUN 7 L Creatinine 0.3 L Estim Creat Clear Calc 178.3 eGFR > 60 BUN/Creatinine Ratio 23 H Glucose 128 H Calculated Osmolality 268 L Lactic Acid 1.7 1.6 Calcium 8.0 L Corrected Calcium 9.5 Phosphorus Magnesium Total Bilirubin 1.3 H AST 13 ALT 16 Alkaline Phosphatase 69 Total Protein 3.4 L Albumin 2.1 L Globulin 1.3 L Albumin/Globulin Ratio 1.6 Procalcitonin Ur Collection Type Urine Color Urine Clarity Urine pH Ur Specific [place] Urine Protein Urine Glucose (UA) Urine Ketones Urine Blood Urine Nitrite Urine Bilirubin Urine Urobilinogen (Auto) Ur Leukocyte Esterase Urine RBC Urine WBC Ur Squamous Epith Cells Urine Bacteria Blood Type Antibody Screen Crossmatch Blood Bank Wristband ID Blood Bank Comment 01/12/25 13:22 WBC RBC Hgb Hct MCV MCH MCHC RDW Std Deviation Plt Count Neut % (Auto) Lymph % (Auto) [place] % (Auto) Eos % (Auto) Baso % (Auto) Neut # (Auto) Lymph # (Auto) [place] # (Auto) Eos # (Auto) Baso # (Auto) Immature Gran # (Auto) Absolute Nucleated RBC Immature Gran % Nucleated RBC % PT INR APTT Puncture Site ABG pH ABG pCO2 ABG pO2 ABG HCO3 ABG O2 Saturation ABG Base Excess FiO2 Sodium Potassium Chloride Carbon Dioxide Anion Gap BUN Creatinine Estim Creat Clear Calc eGFR BUN/Creatinine Ratio Glucose Calculated Osmolality Lactic Acid 2.2 H Calcium Corrected Calcium Phosphorus Magnesium Total Bilirubin AST ALT Alkaline Phosphatase Total Protein Albumin Globulin Albumin/Globulin Ratio Procalcitonin Ur Collection Type Urine Color Urine Clarity Urine pH Ur Specific [place] Urine Protein Urine Glucose (UA) Urine Ketones Urine Blood Urine Nitrite Urine Bilirubin Urine Urobilinogen (Auto) Ur Leukocyte Esterase Urine RBC Urine WBC Ur Squamous Epith Cells Urine Bacteria Blood Type Antibody Screen Crossmatch Blood Bank Wristband ID Blood Bank Comment Impressions Impression: Multiple perforations: In the setting of inflammatory bowel disease along with small bowel perforation requiring exploratory laparotomy/which is subtotal resection of the colon and small bowel en bloc continue vancomycin IV Zosyn ABG Interpretation ABG results: 01/12/25 01/12/25 01/12/25 02:43 04:40 07:51 ABG pH 7.51 H 7.39 D 7.40 ABG pCO2 29 L 41 D 40 ABG pO2 235 H 145 H D 152 H ABG HCO3 23 25 25 ABG O2 Saturation 100 H 99 H 99 H ABG Base Excess 0 0 0 Assessment & Plan A&P Narrative Pneumoperitoneum most likely perforated viscus and most likely culprit in this case is either colonic or gastric because of the steroids on board Plan N.p.o. NG to intermittent suction IV Zosyn IV Solu-Medrol 40 mg every 12 Surgical consultation Will follow patient most likely will need exploratory laparotomy tonight for further evaluation and management Time Spent With Patient Time: Total time spent is greater than 50% in coordination of care (as documented) at patient's floor/unit and/or counseling patient:
[2025-01-12] MEDS: VANCOMYCIN/D5W 1,250 MG IVPB 250 ML 120 MG IV (22:24)
[2025-01-12] MEDS: Norepinephrine/D5W 8mg/250ml 8 MG/250 ML BAG 24.494 MG IV (22:53)
[2025-01-13] VITALS (108 sets, daily range): BP systolic 82–156; BP diastolic 44–79; PULSE 52–131; RESP 15–18; TEMP 35.8–36.6; O2SAT 99–100; BMI 20.3
[2025-01-13] MEDS: PROPOFOL 1,000 MG IVPB 1,000 MG/100 ML VIAL 10.886 MG IV (01:35)
[2025-01-13] MEDS: VASOPRESSIN IN NS IVPB 20 UNIT/100 ML BAG 9 UNIT IV ×2 (02:58→16:18)
[2025-01-13 04:53] LABS: Base Excess -4 (-3-3); HCO3 22 mEq/L (20-26); Inspired Oxygen, FIO2 21 %; O2 Saturation 99 % (91-98); PCO2 43 mmHg (32.0-48.0); PO2 137 mmHg (83-108); pH, Arterial 7.32 (7.35-7.45)
[2025-01-13 05:09] LABS: Allen Test Performed/OK; Puncture Site Arterial Line
[2025-01-13 05:25] LABS: INR 1.5 (0.9-1.3); Prothrombin Time 15.6 Seconds (9.0-12.2)
[2025-01-13 05:27] LABS: Basophils % (Auto) 0 % (0-2.5); Eosinophils % (Auto) 0 % (0-10); Hematocrit 24.1 % (36.0-46.0); Immature Granulocytes % (Auto) 5 % (0-0); Immature Granulocytes Auto 1.47 Thou/mm3 (0.00-0.00); Lymphocytes # (Auto) 1.4 Thou/mm3 (1.0-4.8); Lymphocytes % (Auto) 4 % (10-50); Mean Corpuscular HGB Conc 33.6 g/dl (31.0-37.0); Mean Corpuscular Hemoglobin 29.5 pg (25.0-35.0); Mean Corpuscular Volume 88 fL (80-100); Monocytes # (Auto) 0.3 Thou/mm3 (0.0-0.8); Monocytes % (Auto) 1 % (0-12); Neutrophils % (Auto) 90 % (37-80); Nucleated Red Blood Cell % 0 /100 WBC (0); Platelet Count 191 Thou/mm3 (140-440); RDW Standard Deviation 52.7 fL (36.4-46.3); Red Blood Count 2.75 Miln/mm3 (4.00-5.20); White Blood Count 32.2 Thou/mm3 (3.6-11.0)
[2025-01-13 05:32] LABS: Hemoglobin 8.1 g/dL (12.0-16.0)
[2025-01-13] MEDS: fentaNYL 2,500 MCG/250 ML BAG 2,500 MCG/250 ML BAG 17.5 MCG IV (05:54)
[2025-01-13] MEDS: PIPER/TAZO INJ 4.5 GM in SODIUM CHLORIDE 0.9% (P) 100 ML IV ×3 (06:06→21:50)
[2025-01-13 06:25] LABS: Alanine Aminotransferase 15 U/L (10-49); Albumin, Serum 1.8 gm/dL (3.4-4.8); Albumin/Globulin Ratio 1.4 (1.2-2.2); Alkaline Phosphatase 78 U/L (46-116); Anion Gap 6 (7-16); Aspartate Amino Transferase 14 U/L (0-34); BUN/Creatinine Ratio 30 Ratio (12-20); Bilirubin,Total 0.6 mg/dL (0.3-1.2); Blood Urea Nitrogen 9 mg/dL (9-23); Calcium 7.5 mg/dL (8.3-10.6); Calcium (Corrected) 9.3 mg/dL (8.5-10.1); Carbon Dioxide 21.4 mMol/L (20.0-31.0); Chloride 104 mMol/L (98-107); Creatinine (Component) 0.3 mg/dL (0.6-1.3); Estimated Creatinine Clearance 178.3 mL/min (>60); Globulin 1.3 gm/dL (2.3-3.5); Glucose 302 mg/dL (74-106); Magnesium 1.7 mg/dL (1.6-2.6); Osmolality,Calculated 272 (275-295); Phosphorous 2.4 mg/dL (2.4-5.1); Potassium 4.1 mMol/L (3.4-5.1); Sodium 131 mMol/L (136-145); Total Protein 3.1 gm/dL (5.7-8.2); eGFR > 60 See Note
[2025-01-13 08:01] LABS: Basophils # (Auto) 0.2 Thou/mm3 (0.0-0.2); Basophils % (Auto) 1 % (0-2.5); Eosinophils % (Auto) 0 % (0-10); Hematocrit 22.8 % (36.0-46.0); Immature Granulocytes % (Auto) 4 % (0-0); Immature Granulocytes Auto 1.26 Thou/mm3 (0.00-0.00); Lymphocytes # (Auto) 1.5 Thou/mm3 (1.0-4.8); Lymphocytes % (Auto) 5 % (10-50); Mean Corpuscular HGB Conc 33.8 g/dl (31.0-37.0); Mean Corpuscular Hemoglobin 29.6 pg (25.0-35.0); Mean Corpuscular Volume 88 fL (80-100); Monocytes # (Auto) 0.3 Thou/mm3 (0.0-0.8); Monocytes % (Auto) 1 % (0-12); Neutrophils # (Auto) 25.9 Thou/mm3 (1.8-7.7); Neutrophils % (Auto) 89 % (37-80); Nucleated Red Blood Cell % 0 /100 WBC (0); Platelet Count 175 Thou/mm3 (140-440); RDW Standard Deviation 53.4 fL (36.4-46.3); White Blood Count 29.2 Thou/mm3 (3.6-11.0)
[2025-01-13 08:11] LABS: Hemoglobin 7.7 g/dL (12.0-16.0)
[2025-01-13] MEDS: PANTOPRAZOLE INJ 40 MG VIAL IVP (08:23)
[2025-01-13] MEDS: INSULIN LISPRO (AdmeLOG) 1 UNIT/0.01 ML UNIT SC ×3 (08:26→18:16)
[2025-01-13] MEDS: VANCOMYCIN/NS 1 GM IVPB 200 ML IV ×2 (10:13→22:07)
--- NOTE | 2025-01-13 10:17 | ESPR_ITS ---
<Statement entered by Mirza Beckman MD - 01/14/25 10:38> TOTAL CC TIME: 45 MIN I saw and evaluated the patient. I reviewed the resident?s note and agree with findings and plan as documented in the resident?s note. Upon my evaluation, this patient had a high probability of imminent or life- threatening deterioration due to small/large bowel perforation in the setting of chronic inflammatory bowel disease complicated by septic shock which required my direct attention, intervention, and personal management. This time is exclusive of time spent on procedures, which are documented separately if performed. Remains on pressors stress dose steroids started based off Dr Crooks's recommendation. Patient is indeed on 50 mg of prednisone daily as an outpatient. Monitor for infectious disease complications given the patient's chronic steroid dependency Schedule to hopefully return back to the operating room tomorrow Lighten sedation as tolerated Documentation for date of: 01/13/25 Subjective Subjective Interval history: Sophia Smith is a 59-year-old female with past medical history of inflammatory bowel disease/ulcerative colitis that was recently discharged on 12/21/2024 for IBS flareup that presented to [facility] with worsening abdominal pain and discomfort for 3 weeks. In ED, imaging showed pneumoperitoneum and was into OR for emergent exploratory laparotomy. During procedure, found to have multiple perforations of both small and large intestines. Per Dr. Crooks, patient will require surgery again on later date (tentatively on Wednesday pending on pressor support) and will require sedation and mechanical ventilation until then. Peritoneum remains open and started on TPN (no enteral feeds). ICU consulted for further management of critically ill patient. 01/12: Seen and examined at bedside in ICU. Remains on sedation with propofol and fentanyl as well as Levophed and vasopressin. Had central and A-line placed overnight and wound vac in place draining dark-brown material. Noted to have 1 L of urine output overnight that significantly decreased during day although she received 2.5 L IVF since being in ICU. Bedside ultrasound showed LV with good ejection fraction and IVC shows adequate fluid resuscitation. TPN started and fluconazole added given upper GI perforation. Sisters updated regarding patient's current condition and plan to go back to OR at later time. 01/13: Patient examined at bedside this AM. Patient continues to be on sedation with propofol and fentanyl for sedation whilst on mechanical ventilation. Patient pressor requirements are imporving. Spoke with surgeon who ordered blood products and will take patient to OR after she is weaned completely off of pressors. Surgery also recommends patient be started on hydrocortisoe 100 mg qhrs to improve BP and to allow for pressor requirements to decrease. Exam Vital Signs Temp Pulse Resp BP Pulse Ox O2 Del Method FiO2 97.6 F 58 L 16 101/62 100 Mechanical Ventilation 30 01/13/25 04:01 01/13/25 06:28 01/13/25 06:28 01/13/25 06:15 01/13/25 06:28 01/12/25 18:00 01/13/25 06:28 Narrative Exam General: sedated and mechanically ventilated HEENT: NC/AT, mucous membranes moist, bilateral sclera anicteric Cardiovascular: regular rate and rhythm, S1/S2 present, no murmurs appreciated Pulmonary: clear to auscultation bilaterally Abdominal: large mid abdominal incision with the presence of wound which is draining serosanguionous fluid, abdomen is soft and non-distended but is extremely tender to even minimal palpation Ext: No edema, warm well perfused, normal tone Skin: warm and dry, intact, no rashes Objective Labs 01/13/25 07:25 01/13/25 10:57 Labs: Laboratory Results - last 24 hr 01/11/25 01/12/25 01/12/25 17:55 09:50 13:22 WBC RBC Hgb Hct MCV MCH MCHC RDW Std Deviation Plt Count Neut % (Auto) Lymph % (Auto) [place] % (Auto) Eos % (Auto) Baso % (Auto) Neut # (Auto) Lymph # (Auto) [place] # (Auto) Eos # (Auto) Baso # (Auto) Immature Gran # (Auto) Absolute Nucleated RBC Immature Gran % Nucleated RBC % PT INR Puncture Site ABG pH ABG pCO2 ABG pO2 ABG HCO3 ABG O2 Saturation ABG Base Excess FiO2 Sodium Potassium 4.6 D Chloride Carbon Dioxide Anion Gap BUN Creatinine Estim Creat Clear Calc eGFR BUN/Creatinine Ratio Glucose Estimated Ave Glu mg/dL Hemoglobin A1c Calculated Osmolality Lactic Acid 2.2 H Calcium Corrected Calcium Phosphorus Magnesium Total Bilirubin AST ALT Alkaline Phosphatase Total Protein Albumin Globulin Albumin/Globulin Ratio Blood Type O Positive Antibody Screen NEGATIVE Crossmatch See Detail Blood Bank Wristband ID Yes Blood Bank Comment FFP Ready 01/13/25 01/13/25 01/13/25 04:16 04:17 07:25 WBC 32.2 H D 29.2 H RBC 2.75 L 2.60 L Hgb 8.1 L 7.7 L Hct 24.1 L 22.8 L MCV 88 88 MCH 29.5 29.6 MCHC 33.6 33.8 RDW Std Deviation 52.7 H 53.4 H Plt Count 191 D 175 Neut % (Auto) 90 H 89 H Lymph % (Auto) 4 L 5 L [place] % (Auto) 1 1 Eos % (Auto) 0 0 Baso % (Auto) 0 1 Neut # (Auto) 29.0 H 25.9 H Lymph # (Auto) 1.4 1.5 [place] # (Auto) 0.3 0.3 Eos # (Auto) 0.0 0.0 Baso # (Auto) 0.0 0.2 Immature Gran # (Auto) 1.47 H 1.26 H Absolute Nucleated RBC 0.00 0.00 Immature Gran % 5 H 4 H Nucleated RBC % 0 0 PT 15.6 H INR 1.5 H Puncture Site Arterial Line ABG pH 7.32 L ABG pCO2 43 ABG pO2 137 H ABG HCO3 22 ABG O2 Saturation 99 H ABG Base Excess -4 L FiO2 21 Sodium 131 L Potassium 4.1 D Chloride 104 Carbon Dioxide 21.4 Anion Gap 6 L BUN 9 Creatinine 0.3 L Estim Creat Clear Calc 178.3 eGFR > 60 BUN/Creatinine Ratio 30 H Glucose [address] Glu mg/dL Cancelled Hemoglobin A1c Cancelled Calculated Osmolality 272 L Lactic Acid 3.0 H Calcium 7.5 L Corrected Calcium 9.3 Phosphorus 2.4 Magnesium 1.7 Total Bilirubin 0.6 D AST 14 ALT 15 Alkaline Phosphatase 78 Total Protein 3.1 L Albumin 1.8 L Globulin 1.3 L Albumin/Globulin Ratio 1.4 Blood Type Antibody Screen Crossmatch Blood Bank Wristband ID Blood Bank Comment ABG Interpretation ABG results: 01/12/25 01/12/25 01/12/25 02:43 04:40 07:51 ABG pH 7.51 H 7.39 D 7.40 ABG pCO2 29 L 41 D 40 ABG pO2 235 H 145 H D 152 H ABG HCO3 23 25 25 ABG O2 Saturation 100 H 99 H 99 H ABG Base Excess 0 0 0 01/13/25 04:17 ABG pH 7.32 L ABG pCO2 43 ABG pO2 137 H ABG HCO3 22 ABG O2 Saturation 99 H ABG Base Excess -4 L Quality Measures Quality Measures none Assessment & Plan Assessment Current Active Medications: Generic Name Dose Route Start Last Admin Trade Name Freq PRN Reason Stop Dose Admin Dextrose 25 ml 01/13/25 06:35 Dextrose 50%-Water Inj 50 Ml Syringe IV 02/12/25 06:34 Q15MIN PRN BG 50-70 responsive npo pt Dextrose 50 ml 01/13/25 06:35 Dextrose 50%-Water Inj 50 Ml Syringe IV 02/12/25 06:34 Q15MIN PRN BG <50 OR BG <70 & pt unresponsive Glucagon 1 mg 01/13/25 06:35 Glucagon Inj 1 Mg Vial IM Q15MIN PRN BG <70, and no IV access Propofol 1,000 mg in 100 mls @ 2.177 mls/hr 01/12/25 01:05 01/13/25 06:00 Diprivan Ivpb IV 02/11/25 01:04 25 mcg/kg/min .Q24H PRN 10.886 mls/hr PER PROTOCOL Titration Protocol 5 MCG/KG/MIN Fentanyl Citrate 2,500 mcg in 250 mls @ 2.5 mls/hr 01/12/25 01:06 01/13/25 06:00 Sublimaze Inj 2,500 Mcg/250 Ml Bag IV 01/17/25 01:05 175 mcg/hr .Q24H PRN 17.5 mls/hr PER PROTOCOL Titration Protocol 25 MCG/HR Norepinephrine/Dextrose 8 mg in 250 mls @ 6.804 mls/hr 01/12/25 05:03 01/13/25 06:00 Levophed In D5w 8mg/250ml IV 02/11/25 05:02 0.12 mcg/kg/min .Q24H PRN 16.329 mls/hr PER PROTOCOL Titration Protocol 0.05 MCG/KG/MIN Vasopressin/Sodium Chloride 20 unit in 100 mls @ 9 mls/hr 01/12/25 05:19 01/13/25 02:58 Vasostrict/Ns Ivpb IV 02/11/25 05:18 0.03 unit/min .Q11H7M PRN 9 mls/hr PER PROTOCOL Administration Protocol 0.03 UNIT/MIN Piperacillin Sod/Tazobactam 100 mls @ 25 mls/hr 01/12/25 14:00 01/13/25 06:06 Sod 4.5 gm/ Sodium Chloride IV 01/18/25 23:23 25 mls/hr Q8HR [facility] Administration Fat Emulsion Intravenous 500 mls @ 32 mls/hr 01/13/25 18:00 Intralipid 20% Iv IV 02/12/25 17:59 TUTHSA@1800 [facility]ERON Sodium Phosphate 45 mmol/ 2,025 mls @ 30 mls/hr 01/12/25 18:00 01/12/25 17:42 Multivitamins/Minerals 10 ml/ IV 01/13/25 17:59 30 mls/hr Amino Acids QDAY@1800 [facility]ON Administration Fluconazole 400 mg in 200 mls @ 100 mls/hr 01/12/25 18:39 01/12/25 19:12 Diflucan/Ns Ivpb IV 01/19/25 18:38 100 mls/hr QDAY@2100 [facility] Administration Vancomycin/Sodium Chloride 200 mls @ 120 mls/hr 01/13/25 10:00 01/13/25 10:13 Vancomycin/Ns 1 Gm Ivpb IV 01/20/25 09:59 120 mls/hr BID@1000,2200 CAMERON Administration Protocol Sodium Phosphate 15 mmol/ 1,015 mls @ 30 mls/hr 01/13/25 18:00 Multivitamins/Minerals 10 ml/ IV 01/14/25 17:59 Amino Acids/Electrolytes .Q24H [facility] Insulin Human Lispro 0 unit 01/13/25 06:45 01/13/25 08:26 Insulin Lispro (Admelog) 1 Unit/0.01 Ml Unit SC 02/12/25 06:44 3 unit Q6HR [facility]ON Administration Protocol Pantoprazole Sodium 40 mg 01/12/25 09:00 01/13/25 08:23 Pantoprazole Inj 40 Mg Vial IVP 02/11/25 08:59 40 mg QDAY [facility] Administration Pharmacy Consult 1 each 01/12/25 09:00 Vancomycin Pharmacy To Dose 1 Each Each IV 02/11/25 08:59 QDAY PRN PROTOCOL Plan Assessment & Plan Ms. Sophia Smith is a 59-year-old female with past medical history of inflammatory bowel disease/ulcerative colitis on chronic steroids that was recently discharged on 12/21/2024 for IBS flareup and is admitted on 01/11 for pneumoperitoneum requiring emergent ex-lap. Patient was found to have multiple areas of large bowel perforation with feculent peritonitis, multiple areas of small bowel perforation and multiple areas of coloenteric fistulas. Patient underwent subtotal colectomy and subsequently admitted to the ICU for further management until patient returns to the OR on later date. Neurological #Sedated and on mechanical ventilation - Continue propofol and fentanyl, RAAS goal -2 - Will continue to wean sedation to decrease pressor requirements Cardiovascular #Distributive Shock Patient currently on Vasopressin and levophed for blood pressure support. Multifactorial etiology including septic shock and sedation medications causing decreased blood pressure. -Will continue to wean pressors as blood pressure tolerate. MAP goal > 65. -Hydrocortisone 100mg q8hrs as recommended by general surgery to assist in elevating BP. Pulmonary #Intubated for airway protection -Patient was intubated prior to going to the OR. Patient was kept intubated as it is planned to retrurn to the OR once patient is off of pressors. Renal #Hypokalemia K: 2.8 -Repletion with 40 meq, repeat level WNL - Continue to monitor and replete #Hypomagnesemia, resolved - Continue to monitor and replete #Hypoosmolar hypochloremic hyponatremia, improved Suspect decreased p.o. intake Admitted with sodium of 126 that improved to 134 after IVF -Continue to trend sodium Gastrointestinal #Pneumoperitoneum s/p ex lap with subtotal colectomy Noted to have pneumoperitoneum on CT imaging and emergently admitted to surgery. Found to have multiple perforations in both large and small intestines and is status-post resection of small and large bowel. Remains with open wound and needs further surgery with date to be determined. - Dr Crooks, will take patient back to the OR once off of pressor support. Recommend patient be initiated on Hydrocortisone 100 mg q8hr. 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 - GI and surgery following patient appreciate recommendations Heme #Normocytic anemia Likely secondary to ulcerative colitis Presented with hemoglobin of 7.8 that improved to 9.2 after 4 units PRBC, and is also status-post 1 unit FFP Endocrine #Hyperglycemia Glucose Infectious disease #Peritonitis #Colitis Imaging showing diffuse nonspecific colitis secondary to perforations - Fluconazole 400 mg daily, Zosyn, and vancomycin - Follow-up blood cultures Hospital management: Disposition: mechanically ventiated, pending second operation Fluids: none Sedatives: propofol and fentanyl Pressors: levophed and vasopressin Diet: TPN Lines: right IJ central, arterial line, wound vac GI prophylaxis: pantoprazole IV CODE STATUS: full code ----- Plan discussed with attending physician Dr. Karuna Bowling MD PGY-3 Internal Medicine
--- NOTE | 2025-01-13 10:22 | PC.NURSE ---
Per Dr. Crooks telephone, transfuse 1 unit PRBCs, 1 FFP, give lasix and transfuse 1 unit PRBCs, total 2 PRBCs and 1 FFP
[2025-01-13 10:41] LABS: Reflex Lactate? Y
[2025-01-13] MEDS: INSULIN GLARGINE (Lantus) 5 UNIT/0.05 ML (PER 5 UNITS) SC (10:44)
[2025-01-13] MEDS: RINGERS LACTATED 500 ML 500 ML 999 ML IV (10:46)
[2025-01-13 11:05] LABS: Lactic Acid, 3 HR 2.9 mMol/L (0.4-2.0)
[2025-01-13 11:25] LABS: Anion Gap 5 (7-16); BUN/Creatinine Ratio 30 Ratio (12-20); Blood Urea Nitrogen 9 mg/dL (9-23); Calcium 7.9 mg/dL (8.3-10.6); Carbon Dioxide 23.1 mMol/L (20.0-31.0); Chloride 104 mMol/L (98-107); Creatinine (Component) 0.3 mg/dL (0.6-1.3); Estimated Creatinine Clearance 146.4 mL/min (>60); Glucose 292 mg/dL (74-106); Osmolality,Calculated 274 (275-295); Potassium 3.8 mMol/L (3.4-5.1); Sodium 132 mMol/L (136-145); Triglycerides 76 mg/dL (30-150); eGFR > 60 See Note
--- NOTE | 2025-01-13 12:31 | PC.NURSE ---
per joyce Farnsworth to give lasix, confirmed conflicts
--- NOTE | 2025-01-13 14:59 | PD.SURPROG ---
Documentation for date of: 01/13/25 Subjective Subjective Narrative: Patient is seen and examined in ICU. She is still requiring Levophed and vasopressin, however requirement is decreased since yesterday. She is making adequate urine. Currently she is on vancomycin, Zosyn and fluconazole. She was started on TPN Exam Vital Signs Temp Pulse Resp BP Pulse Ox O2 Del Method FiO2 96.5 F L 73 17 105/63 100 Mechanical Ventilation 30 01/13/25 14:30 01/13/25 14:30 01/13/25 14:30 01/13/25 14:30 01/13/25 14:01/12/25 18:00 01/13/25 12:00 Constitutional Comments: Intubated and sedated Routine Abdominal Exam Comments: Abdomen with wound VAC in place and intact Assessment & Plan Assessment Additional comments: Postop day #1 status post exploratory laparotomy, subtotal colectomy with en bloc partial small bowel resection Plan Continue IV antibiotics. Will give patient blood products. She will be started on hydrocortisone as she is adrenally insufficient. Will plan for second look laparotomy with anastomosis end ileostomy tomorrow Procedures Procedures Exploratory laparotomy, subtotal colectomy with en bloc partial small bowel resection
[2025-01-13] MEDS: FUROSEMIDE INJ 10 MG/ML VIAL 2 ML 20 MG IVP (15:29)
[2025-01-13] MEDS: HYDROCORTISONE SOD SUCC INJ 100 MG VIAL IV ×2 (15:31→21:49)
[2025-01-13] MEDS: FAT EMULSIONS 20% IV 500 ML 32 ML IV (17:45)
[2025-01-13] MEDS: MULTIVITAMIN IV (17:48)
[2025-01-13] MEDS: AMINO ACID IV (17:48)
[2025-01-13] MEDS: [UNRECOGNIZED DRUG - OTHER] IV (17:48)
[2025-01-13] MEDS: SOD PHOS ADDITIVE IV (17:48)
--- NOTE | 2025-01-13 18:08 | PD.IMPROG ---
Documentation for date of: 01/13/25 Subjective Subjective Interval history: Patient evaluated remains intubated . WBC count is down to 29.2 from 32 Albumin is 1.9 patient on TPN On 2 pressors Bicarb is up to 23.1 improving Exam Vital Signs Temp Pulse Resp BP Pulse Ox O2 Del Method FiO2 97.1 F 64 17 99/68 100 Mechanical Ventilation 30 01/13/25 17:04 01/13/25 17:04 01/13/25 17:04 01/13/25 17:04 01/13/25 17:04 01/13/25 12:00 01/13/25 16:00 Objective Labs 01/13/25 07:25 01/13/25 10:57 Labs: Laboratory Results - last 24 hr 01/11/25 01/13/25 01/13/25 17:55 04:16 04:17 WBC 32.2 H D RBC 2.75 L Hgb 8.1 L Hct 24.1 L MCV 88 MCH 29.5 MCHC 33.6 RDW Std Deviation 52.7 H Plt Count 191 D Neut % (Auto) 90 H Lymph % (Auto) 4 L [place] % (Auto) 1 Eos % (Auto) 0 Baso % (Auto) 0 Neut # (Auto) 29.0 H Lymph # (Auto) 1.4 [place] # (Auto) 0.3 Eos # (Auto) 0.0 Baso # (Auto) 0.0 Immature Gran # (Auto) 1.47 H Absolute Nucleated RBC 0.00 Immature Gran % 5 H Nucleated RBC % 0 PT 15.6 H INR 1.5 H Puncture Site Arterial Line ABG pH 7.32 L ABG pCO2 43 ABG pO2 137 H ABG HCO3 22 ABG O2 Saturation 99 H ABG Base Excess -4 L FiO2 21 Sodium 131 L Potassium 4.1 D Chloride 104 Carbon Dioxide 21.4 Anion Gap 6 L BUN 9 Creatinine 0.3 L Estim Creat Clear Calc 178.3 eGFR > 60 BUN/Creatinine Ratio 30 H Glucose [address] Glu mg/dL Hemoglobin A1c Calculated Osmolality 272 L Lactic Acid Calcium 7.5 L Corrected Calcium 9.3 Phosphorus 2.4 Magnesium 1.7 Total Bilirubin 0.6 D AST 14 ALT 15 Alkaline Phosphatase 78 Total Protein 3.1 L Albumin 1.8 L Globulin 1.3 L Albumin/Globulin Ratio 1.4 Triglycerides Blood Type O Positive Antibody Screen NEGATIVE Crossmatch See Detail Blood Bank Wristband ID Yes Blood Bank Comment FFP Ready 01/13/25 01/13/25 07:25 10:57 WBC 29.2 H RBC 2.60 L Hgb 7.7 L Hct 22.8 L MCV 88 MCH 29.6 MCHC 33.8 RDW Std Deviation 53.4 H Plt Count 175 Neut % (Auto) 89 H Lymph % (Auto) 5 L [place] % (Auto) 1 Eos % (Auto) 0 Baso % (Auto) 1 Neut # (Auto) 25.9 H Lymph # (Auto) 1.5 [place] # (Auto) 0.3 Eos # (Auto) 0.0 Baso # (Auto) 0.2 Immature Gran # (Auto) 1.26 H Absolute Nucleated RBC 0.00 Immature Gran % 4 H Nucleated RBC % 0 PT INR Puncture Site ABG pH ABG pCO2 ABG pO2 ABG HCO3 ABG O2 Saturation ABG Base Excess FiO2 Sodium 132 L Potassium 3.8 Chloride 104 Carbon Dioxide 23.1 Anion Gap 5 L BUN 9 Creatinine 0.3 L Estim Creat Clear Calc 146.4 eGFR > 60 BUN/Creatinine Ratio 30 H Glucose [address] Glu mg/dL Cancelled Hemoglobin A1c Cancelled Calculated Osmolality 274 L Lactic Acid 3.0 H 2.9 H Calcium 7.9 L Corrected Calcium Phosphorus Magnesium Total Bilirubin AST ALT Alkaline Phosphatase Total Protein Albumin Globulin Albumin/Globulin Ratio Triglycerides 76 Blood Type Antibody Screen Crossmatch Blood Bank Wristband ID Blood Bank Comment Impressions Impression: # Multiple perforations of the colon and small bowel due to underlying inflammatory bowel disease requiring subtotal colectomy # Improving metabolic acidosis # Improving lactic acidosis # Improving leukocytosis Continue current management ABG Interpretation ABG results: 01/12/25 01/12/25 01/12/25 02:43 04:40 07:51 ABG pH 7.51 H 7.39 D 7.40 ABG pCO2 29 L 41 D 40 ABG pO2 235 H 145 H D 152 H ABG HCO3 23 25 25 ABG O2 Saturation 100 H 99 H 99 H ABG Base Excess 0 0 0 01/13/25 04:17 ABG pH 7.32 L ABG pCO2 43 ABG pO2 137 H ABG HCO3 22 ABG O2 Saturation 99 H ABG Base Excess -4 L Assessment & Plan A&P Narrative Pneumoperitoneum most likely perforated viscus and most likely culprit in this case is either colonic or gastric because of the steroids on board Plan N.p.o. NG to intermittent suction IV Zosyn IV Solu-Medrol 40 mg every 12 Surgical consultation Will follow patient most likely will need exploratory laparotomy tonight for further evaluation and management Time Spent With Patient Time: Total time spent is greater than 50% in coordination of care (as documented) at patient's floor/unit and/or counseling patient:
[2025-01-13] MEDS: fentaNYL 2,500 MCG/250 ML BAG 2,500 MCG/250 ML BAG 22.5 MCG IV (18:37)
[2025-01-13] MEDS: Norepinephrine/D5W 8mg/250ml 8 MG/250 ML BAG 8.165 MG IV (18:45)
[2025-01-13] MEDS: FLUCONAZOLE/NS 400 MG IVPB 400 MG/200 ML BAG 100 MG IV (21:48)
[2025-01-13] MEDS: HEPARIN SOD INJ 5000 UNIT/ML VIAL SC (21:49)
[2025-01-13 22:05] LABS: Vancomycin,Trough 8.1 mcg/mL (5.0-10.0)
[2025-01-13] MEDS: PROPOFOL 1,000 MG IVPB 1,000 MG/100 ML VIAL 6.532 MG IV (22:53)
[2025-01-14] VITALS (88 sets, daily range): BP systolic 69–183; BP diastolic 44–178; PULSE 57–145; RESP 13–31; TEMP 36.1–36.7; O2SAT 90–100; BMI 20.7
[2025-01-14] MEDS: INSULIN LISPRO (AdmeLOG) 1 UNIT/0.01 ML UNIT SC ×5 (00:16→23:51)
[2025-01-14 05:07] LABS: Basophils # (Auto) 0.1 Thou/mm3 (0.0-0.2); Basophils % (Auto) 1 % (0-2.5); Eosinophils # (Auto) 0.5 Thou/mm3 (0.0-0.5); Eosinophils % (Auto) 2 % (0-10); Hematocrit 33.9 % (36.0-46.0); Hemoglobin 11.7 g/dL (12.0-16.0); Immature Granulocytes % (Auto) 4 % (0-0); Immature Granulocytes Auto 1.06 Thou/mm3 (0.00-0.00); Lymphocytes # (Auto) 0.9 Thou/mm3 (1.0-4.8); Lymphocytes % (Auto) 4 % (10-50); Mean Corpuscular HGB Conc 34.5 g/dl (31.0-37.0); Mean Corpuscular Hemoglobin 29.3 pg (25.0-35.0); Mean Corpuscular Volume 85 fL (80-100); Monocytes # (Auto) 0.3 Thou/mm3 (0.0-0.8); Monocytes % (Auto) 1 % (0-12); Neutrophils # (Auto) 21.9 Thou/mm3 (1.8-7.7); Neutrophils % (Auto) 89 % (37-80); Nucleated Red Blood Cell % 0 /100 WBC (0); Platelet Count 125 Thou/mm3 (140-440); Red Blood Count 3.99 Miln/mm3 (4.00-5.20); White Blood Count 24.6 Thou/mm3 (3.6-11.0)
[2025-01-14 05:13] LABS: INR 1.1 (0.9-1.3); Prothrombin Time 11.5 Seconds (9.0-12.2)
[2025-01-14 05:21] LABS: Alanine Aminotransferase 16 U/L (10-49); Albumin, Serum 2.4 gm/dL (3.4-4.8); Albumin/Globulin Ratio 1.3 (1.2-2.2); Alkaline Phosphatase 92 U/L (46-116); Anion Gap 9 (7-16); Aspartate Amino Transferase 12 U/L (0-34); BUN/Creatinine Ratio 25 Ratio (12-20); Bilirubin,Total 0.6 mg/dL (0.3-1.2); Blood Urea Nitrogen < 5 mg/dL (9-23); Calcium 8.2 mg/dL (8.3-10.6); Calcium (Corrected) 9.5 mg/dL (8.5-10.1); Carbon Dioxide 27.6 mMol/L (20.0-31.0); Chloride 101 mMol/L (98-107); Creatinine (Component) 0.2 mg/dL (0.6-1.3); Estimated Creatinine Clearance 219.6 mL/min (>60); Globulin 1.9 gm/dL (2.3-3.5); Glucose 225 mg/dL (74-106); Magnesium 1.4 mg/dL (1.6-2.6); Osmolality,Calculated 279 (275-295); Phosphorous 1.8 mg/dL (2.4-5.1); Sodium 138 mMol/L (136-145); Total Protein 4.3 gm/dL (5.7-8.2); eGFR > 60 See Note
[2025-01-14 05:22] LABS: Potassium 2.1 mMol/L (3.4-5.1)
[2025-01-14] MEDS: fentaNYL 2,500 MCG/250 ML BAG 2,500 MCG/250 ML BAG 22.5 MCG IV (05:53)
[2025-01-14] MEDS: Magnesium Sulfate 4 GM Ivpb 4 GM/50 ML BAG IV (05:54)
[2025-01-14] MEDS: PIPER/TAZO INJ 4.5 GM in SODIUM CHLORIDE 0.9% (P) 100 ML IV ×3 (05:54→21:50)
[2025-01-14] MEDS: HYDROCORTISONE SOD SUCC INJ 100 MG VIAL IV ×2 (05:54→13:34)
[2025-01-14] MEDS: POTASSIUM CHL 20 mEq IVPB 20 MEQ/100 ML BAG 50 MEQ IV ×5 (05:55→23:35)
[2025-01-14] MEDS: POTASSIUM CHLORIDE 10% 20 MEQ/15 ML UDC 40 MEQ GT (07:33)
[2025-01-14] MEDS: POTASSIUM CHLORIDE 10% 20 MEQ/15 ML UDC GT (07:33)
[2025-01-14] MEDS: POTASSIUM PHOS 22.5 MMOL in SODIUM CHLORIDE 0.9% 500 ML 500 ML 82.778 MMOL IV (08:01)
[2025-01-14] MEDS: VANCOMYCIN/NS 1 GM IVPB 200 ML IV ×3 (08:08→21:49)
[2025-01-14] MEDS: PANTOPRAZOLE INJ 40 MG VIAL IVP (08:10)
[2025-01-14 09:02] LABS: Magnesium 2.5 mg/dL (1.6-2.6)
[2025-01-14 09:03] LABS: Potassium 2.3 mMol/L (3.4-5.1)
[2025-01-14 10:04] LABS: Magnesium 2.9 mg/dL (1.6-2.6); Potassium 2.9 mMol/L (3.4-5.1)
--- NOTE | 2025-01-14 11:36 | ESPR_ITS ---
<Statement entered by Mirza Beckman MD - 01/15/25 13:51> TOTAL TIME: 45MINUTES ON DIRECT MEDICAL CARE, MANAGEMENT - COORDINATION AND COUNSELING > 50% OF TOTAL TIME I saw and evaluated the patient. I reviewed the resident?s note and agree with findings and plan as documented in the resident?s note. Post ileostomy and anastomosis of bowel. Return to the ICU with abdominal closure extubated. Hemodynamics remain acceptable. We will wean hydrocortisone. Documentation for date of: 01/14/25 Subjective Subjective Interval history: Sophia Smith is a 59-year-old female with past medical history of inflammatory bowel disease/ulcerative colitis that was recently discharged on 12/21/2024 for IBS flareup that presented to [facility] with worsening abdominal pain and discomfort for 3 weeks. In ED, imaging showed pneumoperitoneum and was into OR for emergent exploratory laparotomy. During procedure, found to have multiple perforations of both small and large intestines. Per Dr. Crooks, patient will require surgery again on later date (tentatively on Wednesday pending on pressor support) and will require sedation and mechanical ventilation until then. Peritoneum remains open and started on TPN (no enteral feeds). ICU consulted for further management of critically ill patient. 01/12: Seen and examined at bedside in ICU. Remains on sedation with propofol and fentanyl as well as Levophed and vasopressin. Had central and A-line placed overnight and wound vac in place draining dark-brown material. Noted to have 1 L of urine output overnight that significantly decreased during day although she received 2.5 L IVF since being in ICU. Bedside ultrasound showed LV with good ejection fraction and IVC shows adequate fluid resuscitation. TPN started and fluconazole added given upper GI perforation. Sisters updated regarding patient's current condition and plan to go back to OR at later time. 01/13: Examined at bedside this AM. Continues to be on sedation with propofol and fentanyl for sedation whilst on mechanical ventilation. Pressor requirements are improving. Spoke with surgeon who ordered blood products and will take patient to OR after she is weaned completely off of pressors. Surgery also recommends patient be started on hydrocortisoe 100 mg qhrs to improve BP and to allow for pressor requirements to decrease. 01/14: Seen and examined at bedside in ICU, intubated, ventilated, and sedated but was alert and following commands. No acute overnight events. Levophed was turned off around midnight and vasopressin around 2 AM. Potassium noted to be 2.1 and repleted with 80 mEq prior to going to the OR with repeat of 2.9. Went to OR in a.m. and underwent ex lap with small bowel anastomosis with end ileostomy, cholecystectomy, and abdominal washout with closure. No evidence of intra-abdominal infection or abscesses. She was extubated and recovered in PACU and then returned to ICU. Exam Vital Signs Temp Pulse Resp BP Pulse Ox O2 Del Method O2 Flow Rate 97.6 F 115 H 16 118/72 100 Mechanical Ventilation 30 01/14/25 08:00 01/14/25 10:00 01/14/25 06:00 01/14/25 10:00 01/14/25 10:00 01/14/25 08:00 01/13/25 16:00 FiO2 30 01/14/25 08:00 Narrative Exam Exam prior to extubation and procedure: General: sedated but alert, following commands, in no acute distress, mechanically ventilated HEENT: NC/AT, mucous membranes moist, bilateral sclera anicteric Cardiovascular: regular rate and rhythm, S1/S2 present, no murmurs appreciated Pulmonary: clear to auscultation bilaterally Abdominal: large mid abdominal incision with wound vac, soft and non-distended Ext: No edema, warm well perfused, normal tone Skin: warm and dry, intact, no rashes Objective Labs 01/15/25 04:10 01/15/25 04:10 Labs: Laboratory Results - last 24 hr 01/11/25 01/13/25 01/14/25 17:55 21:05 04:19 WBC 24.6 H RBC 3.99 L Hgb 11.7 L D Hct 33.9 L D MCV 85 MCH 29.3 MCHC 34.5 RDW Std Deviation 50.0 H Plt Count 125 L D Neut % (Auto) 89 H Lymph % (Auto) 4 L [place] % (Auto) 1 Eos % (Auto) 2 Baso % (Auto) 1 Neut # (Auto) 21.9 H Lymph # (Auto) 0.9 L [place] # (Auto) 0.3 Eos # (Auto) 0.5 Baso # (Auto) 0.1 Immature Gran # (Auto) 1.06 H Absolute Nucleated RBC 0.00 Immature Gran % 4 H Nucleated RBC % 0 PT 11.5 D INR 1.1 Sodium 138 Potassium 2.1 L* D Chloride 101 Carbon Dioxide 27.6 Anion Gap 9 BUN < 5 L Creatinine 0.2 L Estim Creat Clear Calc 219.6 eGFR > 60 BUN/Creatinine Ratio 25 H Glucose 225 H D Calculated Osmolality 279 Calcium 8.2 L Corrected Calcium 9.5 Phosphorus 1.8 L Magnesium 1.4 L Total Bilirubin 0.6 AST 12 ALT 16 Alkaline Phosphatase 92 Total Protein 4.3 L Albumin 2.4 L D Globulin 1.9 L Albumin/Globulin Ratio 1.3 Vancomycin Trough 8.1 Blood Type O Positive Antibody Screen NEGATIVE Crossmatch See Detail Blood Bank Wristband ID Yes Blood Bank Comment FFP Ready 01/14/25 01/14/25 07:35 09:30 WBC RBC Hgb Hct MCV MCH MCHC RDW Std Deviation Plt Count Neut % (Auto) Lymph % (Auto) [place] % (Auto) Eos % (Auto) Baso % (Auto) Neut # (Auto) Lymph # (Auto) [place] # (Auto) Eos # (Auto) Baso # (Auto) Immature Gran # (Auto) Absolute Nucleated RBC Immature Gran % Nucleated RBC % PT INR Sodium Potassium 2.3 L* 2.9 L D Chloride Carbon Dioxide Anion Gap BUN Creatinine Estim Creat Clear Calc eGFR BUN/Creatinine Ratio Glucose Calculated Osmolality Calcium Corrected Calcium Phosphorus Magnesium 2.5 2.9 H Total Bilirubin AST ALT Alkaline Phosphatase Total Protein Albumin Globulin Albumin/Globulin Ratio Vancomycin Trough Blood Type Antibody Screen Crossmatch Blood Bank Wristband ID Blood Bank Comment ABG Interpretation ABG results: 01/12/25 01/12/25 01/12/25 02:43 04:40 07:51 ABG pH 7.51 H 7.39 D 7.40 ABG pCO2 29 L 41 D 40 ABG pO2 235 H 145 H D 152 H ABG HCO3 23 25 25 ABG O2 Saturation 100 H 99 H 99 H ABG Base Excess 0 0 0 01/13/25 04:17 ABG pH 7.32 L ABG pCO2 43 ABG pO2 137 H ABG HCO3 22 ABG O2 Saturation 99 H ABG Base Excess -4 L Quality Measures Quality Measures none Assessment & Plan Assessment Current Active Medications: Generic Name Dose Route Start Last Admin Trade Name Freq PRN Reason Stop Dose Admin Dextrose 25 ml 01/13/25 06:35 Dextrose 50%-Water Inj 50 Ml Syringe IV 02/12/25 06:34 Q15MIN PRN BG 50-70 responsive npo pt Dextrose 50 ml 01/13/25 06:35 Dextrose 50%-Water Inj 50 Ml Syringe IV 02/12/25 06:34 Q15MIN PRN BG <50 OR BG <70 & pt unresponsive Glucagon 1 mg 01/13/25 06:35 Glucagon Inj 1 Mg Vial IM Q15MIN PRN BG <70, and no IV access Heparin Sodium (Porcine) 5,000 unit 01/13/25 21:00 01/14/25 08:11 Heparin Sod Inj 5000 Unit/Ml Vial SC 01/27/25 20:59 Not Given Q12HR CAMERON Hydrocortisone Sodium Succinate 100 mg 01/13/25 15:00 01/14/25 05:54 Hydrocortisone Sod Succ Inj 100 Mg Vial IV 02/12/25 14:59 100 mg Q8HR CAMERON Administration Propofol 1,000 mg in 100 mls @ 2.177 mls/hr 01/12/25 01:05 01/14/25 06:34 Diprivan Ivpb IV 02/11/25 01:04 Infused .Q24H PRN Titration PER PROTOCOL Protocol 5 MCG/KG/MIN Fentanyl Citrate 2,500 mcg in 250 mls @ 2.5 mls/hr 01/12/25 01:06 01/14/25 06:00 Sublimaze Inj 2,500 Mcg/250 Ml Bag IV 01/17/25 01:05 225 mcg/hr .Q24H PRN 22.5 mls/hr PER PROTOCOL Titration Protocol 25 MCG/HR Norepinephrine/Dextrose 8 mg in 250 mls @ 6.804 mls/hr 01/12/25 05:03 01/13/25 22:23 Levophed In D5w 8mg/250ml IV 02/11/25 05:02 0 mcg/kg/min .Q24H PRN 0 mls/hr PER PROTOCOL Titration Protocol 0.05 MCG/KG/MIN Vasopressin/Sodium Chloride 20 unit in 100 mls @ 9 mls/hr 01/12/25 05:19 01/14/25 02:00 Vasostrict/Ns Ivpb IV 02/11/25 05:18 0 unit/min .Q11H7M PRN 0 mls/hr PER PROTOCOL Titration Protocol 0.03 UNIT/MIN Piperacillin Sod/Tazobactam 100 mls @ 25 mls/hr 01/12/25 14:00 02/16/25 05:54 Sod 4.5 gm/ Sodium Chloride IV 01/18/25 23:23 25 mls/hr Q8HR CAMERON Administration Fat Emulsion Intravenous 500 mls @ 32 mls/hr 01/13/25 18:00 01/13/25 17:45 Intralipid 20% Iv IV 02/12/25 17:59 32 mls/hr TUTHSA@1800 CAMERON Administration Fluconazole 400 mg in 200 mls @ 100 mls/hr 01/12/25 18:39 01/13/25 21:48 Diflucan/Ns Ivpb IV 01/19/25 18:38 100 mls/hr QDAY@2100 CAMERON Administration Amino Acids/Electrolytes 1,000 mls @ 60 mls/hr 01/14/25 10:55 Clinimix E 20 IV 01/15/25 03:34 .[id number] CAMERON Potassium Phosphate 22.5 mmol/ 507.5 mls @ 82.778 mls/hr 01/14/25 06:30 01/14/25 08:01 Sodium Chloride IV 01/14/25 12:37 82.778 mls/hr X1 ONE Administration Vancomycin/Sodium Chloride 200 mls @ 120 mls/hr 01/14/25 07:30 01/14/25 08:08 Vancomycin/Ns 1 Gm Ivpb IV 01/21/25 07:29 120 mls/hr Q8HR CAMERON Administration Protocol Potassium Phosphate 45 mmol/ 2,025 mls @ 60 mls/hr 01/15/25 03:35 Multivitamins/Minerals 10 ml/ IV 01/16/25 03:34 Amino Acids .Q24H ONE Insulin Human Lispro 0 unit 01/13/25 06:45 01/14/25 06:13 Insulin Lispro (Admelog) 1 Unit/0.01 Ml Unit SC 02/12/25 06:44 2 unit Q6HR CAMERON Administration Protocol Pantoprazole Sodium 40 mg 01/12/25 09:00 01/14/25 08:10 Pantoprazole Inj 40 Mg Vial IVP 02/11/25 08:59 40 mg QDAY CAMERON Administration Pharmacy Consult 1 each 01/12/25 09:00 Vancomycin Pharmacy To Dose 1 Each Each IV 02/11/25 08:59 QDAY PRN PROTOCOL Plan Sophia Sarah is a 59-year-old female with past medical history of inflammatory bowel disease/ulcerative colitis on chronic steroids that was recently discharged on 12/21/2024 for IBS flareup and is admitted on 01/11 for pneumoperitoneum requiring emergent ex-lap. Patient was found to have multiple areas of large bowel perforation with feculent peritonitis, multiple areas of small bowel perforation and multiple areas of coloenteric fistulas. Patient underwent subtotal colectomy and subsequently admitted to the ICU for further management and underwent second procedure on 01/14. 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 Found to have multiple bowel perforations and small and large intestine causing feculent peritonitis. First operation on 01/11 and second on 01/14 in a.m. and underwent ex lap with small bowel anastomosis with end ileostomy, cholecystectomy, and abdominal washout with closure. No evidence of intra-abdominal infection or abscesses. She was extubated and recovered in PACU and then returned to ICU. Weaned off pressors in a.m. prior to OR. - Wean hydrocortisone from 100 mg BID to 75 mg BID Pulmonary #Intubated for airway protection Status-post extubation on 01/14 Renal #Hypokalemia K 2.1 -> 80 mEq -> 2.9 -> 2.3 -> 40 mEq - Follow-up repeat CMP at 8 PM - Continue to monitor and replete #Hypomagnesemia, resolved - Continue to monitor and replete #Hypoosmolar hypochloremic hyponatremia, improved Suspect decreased p.o. intake Admitted with sodium of 126 that improved to 134 after IVF Gastrointestinal #Pneumoperitoneum s/p ex lap with subtotal colectomy Noted to have pneumoperitoneum on CT imaging and emergently admitted to surgery. Found to have multiple perforations in both large and small intestines and is status-post resection of small and large bowel. Status post second procedure on 01/14, underwent ex lap with small bowel anastomosis with end ileostomy, cholecystectomy, and abdominal washout and closure. - Dr Crooks following, recommend strict bowel rest (including p.o. meds) #History of IBS Likely cause of perforations with ulcerative colitis with concomittant fdc steroid usage - GI and surgery following patient appreciate recommendations Heme #Normocytic anemia Likely secondary to ulcerative colitis Presented with hemoglobin of 7.8 that improved to 9.2 after 4 units PRBC, and is also status-post 1 unit FFP - Stable, continue to monitor Endocrine #Hyperglycemia secondary to IV steroids - SSI every 6 hours - Glargine 5 units x 1 Infectious disease #Peritonitis #Colitis Imaging showing diffuse nonspecific colitis secondary to perforations - Fluconazole 400 mg daily, Zosyn, and vancomycin - Blood cultures (01/11): NGTD Hospital management: Disposition: status-post second procedure, will observe in ICU for one more night Fluids: none Sedatives: none Pressors: none Diet: strict NPO Lines: right IJ central, arterial line GI prophylaxis: pantoprazole IV CODE STATUS: full code ----- Plan discussed with attending physician Dr. Karuna Pavon MD PGY-1 Internal Medicine
--- NOTE | 2025-01-14 12:23 | PD.SUROPNT ---
Date of Procedure 01/14/25 Pre Op Diagnosis Open abdomen status post subtotal colectomy with en bloc small bowel resection Post Op Diagnosis Open abdomen status post subtotal colectomy with en bloc small bowel resection Cholelithiasis Procedure Exploratory laparotomy, small bowel anastomosis with end ileostomy Cholecystectomy Abdominal washout and closure Findings There is no evidence of intra-abdominal infections or abscess. Patient was noted to have multiple gallstones with moderately distended gallbladder. She has approximately 170-180 cm remaining small bowel Procedure Description Patient is taken to the operating room and spine position. After administration of general tracheal anesthesia, patient's abdomen prepped and draped in standard surgical manner. The previously placed wound VAC apparatus were removed. Upon entering the abdominal cavity, there was no evidence of abscess or any infection noted. The small bowel was eviscerated, small bowel was healthy in appearance without evidence of any perforations or inflammation. The remaining small bowel was measuring to be [id number] in length. A [id number], functional end-to-end anastomosis was performed between proximal and mid jejunum. Anastomosis was created in 2 layer handsewn anastomosis. Posterior layer was performed with interrupted sutures using 3-0 silk. The inner layer was performed with running 2-0 Vicryl and the anterior layer was reinforced with 3-0 silk sutures in a Lembert fashion. Mesenteric defect was closed with interrupted [id number] sutures using 3-0 silk sutures. Upon further inspection of the abdomen patient was noted to have multiple gallstones with distended gallbladder. I elected to perform cholecystectomy. The gallbladder was from the liver starting at the body of the gallbladder. Upon reaching the infundibulum the cystic duct and cystic artery were identified. Cystic artery was ligated with 2-0 silk tie. Cystic duct was ligated with 0 silk tie and the gallbladder was removed. Abdomen and pelvis, copiously and thoroughly washed and irrigated, all the fluids were suctioned and the suction fluid returned clear. Hemostasis was adequate and satisfactory. Distal ileum to be fashioned as an ileostomy. An approximately 3 cm circular incision was made over the right mid abdomen and dissection was deepened into soft tissue. Anterior abdominal fascia was divided. Rectus muscle was split, posterior abdominal fascia and peritoneum were opened. Opening was easily accommodating to finger breaths. Distal ileum was brought out of the opening to be matured this end ileostomy. Anterior abdominal fascia was then closed with running 0 PDS as well as interrupted sutures with #1 Vicryl. The wound was washed and incision was closed with andres. Ileostomy was matured in usual Yadira fashion. Appropriate ileostomy appliance is placed. Patient tolerated procedure well. She was extubated, breathing spontaneously and without difficulty and was transferred to postanesthesia care in stable condition. Instruments, needles and sponge counts were reported to be correct x 2. Anesthesia GETA Pathology / specimen Other (Gallbladder and contents) Estimated Blood Loss 10 Condition Critical Disposition ICU Surgeon Star Crooks MD Surgical Staff Operation Date: 01/14/25 10:15 Case Staff Anesthesiologist: Srini Granados RNpackage lift operator: Paulette Estrada
--- NOTE | 2025-01-14 12:26 | SUR.PHASEI ---
pt received from OR in recovery bay 1. pt asleep but responds to voice, breathing unlabored on 6l oxymask. v/s stable. pt dressing to abd cdi, ileostomy in place. report received from Angie Rice and Dr. Granados.
--- NOTE | 2025-01-14 13:10 | SUR.PHASEI ---
pt asleep but responds to voice, breathing unlabored on 2l oxymask. v/s stable. pt dressing to abd cdi, ileostomy in place. report called to Stephanie SWANSON. pt will be transferred to ICU at this time.
--- NOTE | 2025-01-14 13:21 | PD.ANESPROG ---
Documentation for date of: 01/14/25 ANESTHESIA NOTE: Patient had second GETA for repeat ex lap, cholecystectomy, partial small bowel resection with ileostomy. Pre-op, I saw her in ICU 253 with her RN and family at bedside. She was intubated but awake, over breathing vent, VSS, off pressors, wrote on paper. She received Zosyn, was on Vanco. She received multiple doses of Potassium and Mg for severe hypokalemia and it showed improvment. She is on q8 IV Hydrocortisone also. She was taken to OR with the team and she did well intra-op. Her vitals remained stable with intermittent IV Phyenyleprhine boluses. Her lines uses with clean technique and no new lines placed. Surgeon closed her abdomen and she was extubated uneventfully at the end. She had lot of UOP, we drained about 1800 cc of urine in the beginning and another 500 cc at the end intra-op. NGT put out about 800 cc of dark bilious liquid. She received 900 cc LR intra-op and (and another 300 cc in PACU). Her Vanco was completed intra-op and her TPN was continued from ICU as is. She did well in PACU, rested calmly, post op pain treated with IV Fentanyl. She was awake, VSS, O2 99% on room air, and was just transferred back to ICU. She had another 450 cc of UOP in PACU. Will defer further management to the ICU team; recommend adding Fludrocortisone if indicated. Srini Granados MD Anesthesia Progress Note Progress Note Most recent Vital Signs: Last Vital Signs Temp 97.1 F 01/14/25 13:00 Pulse 110 H 01/14/25 13:00 Resp 15 01/14/25 13:00 BP 107/88 H 01/14/25 13:00 Pulse Ox 99 01/14/25 13:00 O2 Del Method Mechanical Ventilation 01/14/25 08:00 O2 Flow Rate 2 01/14/25 13:00 FiO2 30 01/14/25 08:00
[2025-01-14] MEDS: AMINO ACID IV (13:32)
[2025-01-14] MEDS: [UNRECOGNIZED DRUG - OTHER] IV (13:32)
[2025-01-14] MEDS: HYDROmorphone INJ 2 MG/ML VIAL 0.5 MG IVP ×2 (13:48→19:56)
[2025-01-14] MEDS: INSULIN GLARGINE (Lantus) 5 UNIT/0.05 ML (PER 5 UNITS) SC (14:22)
[2025-01-14 14:56] LABS: Alanine Aminotransferase 19 U/L (10-49); Albumin, Serum 2.4 gm/dL (3.4-4.8); Albumin/Globulin Ratio 1.1 (1.2-2.2); Alkaline Phosphatase 103 U/L (46-116); Anion Gap 9 (7-16); Aspartate Amino Transferase 29 U/L (0-34); BUN/Creatinine Ratio 25 Ratio (12-20); Bilirubin,Total 0.5 mg/dL (0.3-1.2); Blood Urea Nitrogen < 5 mg/dL (9-23); Calcium 8.2 mg/dL (8.3-10.6); Calcium (Corrected) 9.5 mg/dL (8.5-10.1); Carbon Dioxide 31.9 mMol/L (20.0-31.0); Chloride 106 mMol/L (98-107); Creatinine (Component) 0.2 mg/dL (0.6-1.3); Estimated Creatinine Clearance 222.9 mL/min (>60); Globulin 2.1 gm/dL (2.3-3.5); Glucose 220 mg/dL (74-106); Osmolality,Calculated 296 (275-295); Sodium 147 mMol/L (136-145); Total Protein 4.5 gm/dL (5.7-8.2); eGFR > 60 See Note
[2025-01-14 14:59] LABS: Potassium 2.3 mMol/L (3.4-5.1)
[2025-01-14 15:50] LABS: Phosphorous 1.9 mg/dL (2.4-5.1)
--- NOTE | 2025-01-14 18:37 | PC.NURSE ---
received report from OR nurse, pt NG set to low continuos suction, per Dr. Pavon continue low continuos suction per Dr. Crooks, confirmed strict NPO with Dr. Pavon
--- NOTE | 2025-01-14 19:10 | ESPR_ITS ---
Documentation for date of: 01/14/25 Subjective Subjective Interval history: Patient evaluated WBC count down to 24.6 from 29.2 so patient got blood transfusion hemoglobin hematocrit 11.7 and 33.9 Exam Vital Signs Temp Pulse Resp BP Pulse Ox O2 Del Method O2 Flow Rate 97.2 F 108 H 22 H 131/84 H 99 Oxy Mask 2 01/14/25 16:00 01/14/25 18:15 01/14/25 18:15 01/14/25 18:15 01/14/25 18:15 01/14/25 16:00 01/14/25 16:00 FiO2 30 01/14/25 08:00 Objective Labs 01/14/25 04:19 01/14/25 14:20 Labs: Laboratory Results - last 24 hr 01/13/25 01/14/25 01/14/25 21:05 04:19 07:35 WBC 24.6 H RBC 3.99 L Hgb 11.7 L D Hct 33.9 L D MCV 85 MCH 29.3 MCHC 34.5 RDW Std Deviation 50.0 H Plt Count 125 L D Neut % (Auto) 89 H Lymph % (Auto) 4 L [place] % (Auto) 1 Eos % (Auto) 2 Baso % (Auto) 1 Neut # (Auto) 21.9 H Lymph # (Auto) 0.9 L [place] # (Auto) 0.3 Eos # (Auto) 0.5 Baso # (Auto) 0.1 Immature Gran # (Auto) 1.06 H Absolute Nucleated RBC 0.00 Immature Gran % 4 H Nucleated RBC % 0 PT 11.5 D INR 1.1 Sodium 138 Potassium 2.1 L* D 2.3 L* Chloride 101 Carbon Dioxide 27.6 Anion Gap 9 BUN < 5 L Creatinine 0.2 L Estim Creat Clear Calc 219.6 eGFR > 60 BUN/Creatinine Ratio 25 H Glucose 225 H D Calculated Osmolality 279 Calcium 8.2 L Corrected Calcium 9.5 Phosphorus 1.8 L Magnesium 1.4 L 2.5 Total Bilirubin 0.6 AST 12 ALT 16 Alkaline Phosphatase 92 Total Protein 4.3 L Albumin 2.4 L D Globulin 1.9 L Albumin/Globulin Ratio 1.3 Vancomycin Trough 8.1 01/14/25 01/14/25 09:30 14:20 WBC RBC Hgb Hct MCV MCH MCHC RDW Std Deviation Plt Count Neut % (Auto) Lymph % (Auto) [place] % (Auto) Eos % (Auto) Baso % (Auto) Neut # (Auto) Lymph # (Auto) [place] # (Auto) Eos # (Auto) Baso # (Auto) Immature Gran # (Auto) Absolute Nucleated RBC Immature Gran % Nucleated RBC % PT INR Sodium 147 H Potassium 2.9 L D 2.3 L* D Chloride 106 Carbon Dioxide 31.9 H Anion Gap 9 BUN < 5 L Creatinine 0.2 L Estim Creat Clear Calc 222.9 eGFR > 60 BUN/Creatinine Ratio 25 H Glucose 220 H Calculated Osmolality 296 H Calcium 8.2 L Corrected Calcium 9.5 Phosphorus 1.9 L Magnesium 2.9 H Total Bilirubin 0.5 AST 29 ALT 19 Alkaline Phosphatase 103 Total Protein 4.5 L Albumin 2.4 L Globulin 2.1 L Albumin/Globulin Ratio 1.1 L Vancomycin Trough Impressions Impression: Status post exploratory laparotomy for perforated colon and small bowel patient extubated Continue current management ABG Interpretation ABG results: 01/12/25 01/12/25 01/12/25 02:43 04:40 07:51 ABG pH 7.51 H 7.39 D 7.40 ABG pCO2 29 L 41 D 40 ABG pO2 235 H 145 H D 152 H ABG HCO3 23 25 25 ABG O2 Saturation 100 H 99 H 99 H ABG Base Excess 0 0 0 01/13/25 04:17 ABG pH 7.32 L ABG pCO2 43 ABG pO2 137 H ABG HCO3 22 ABG O2 Saturation 99 H ABG Base Excess -4 L Assessment & Plan A&P Narrative Pneumoperitoneum most likely perforated viscus and most likely culprit in this case is either colonic or gastric because of the steroids on board Plan N.p.o. NG to intermittent suction IV Zosyn IV Solu-Medrol 40 mg every 12 Surgical consultation Will follow patient most likely will need exploratory laparotomy tonight for further evaluation and management Time Spent With Patient Time: Total time spent is greater than 50% in coordination of care (as documented) at patient's floor/unit and/or counseling patient:
[2025-01-14 20:27] LABS: Alanine Aminotransferase 25 U/L (10-49); Albumin, Serum 2.4 gm/dL (3.4-4.8); Albumin/Globulin Ratio 1.1 (1.2-2.2); Alkaline Phosphatase 103 U/L (46-116); Anion Gap 7 (7-16); Aspartate Amino Transferase 20 U/L (0-34); BUN/Creatinine Ratio 25 Ratio (12-20); Bilirubin,Total 0.6 mg/dL (0.3-1.2); Blood Urea Nitrogen < 5 mg/dL (9-23); Calcium 8.5 mg/dL (8.3-10.6); Calcium (Corrected) 9.8 mg/dL (8.5-10.1); Carbon Dioxide 35.3 mMol/L (20.0-31.0); Chloride 108 mMol/L (98-107); Creatinine (Component) 0.2 mg/dL (0.6-1.3); Estimated Creatinine Clearance 222.9 mL/min (>60); Globulin 2.1 gm/dL (2.3-3.5); Glucose 214 mg/dL (74-106); Osmolality,Calculated 301 (275-295); Potassium 2.8 mMol/L (3.4-5.1); Sodium 150 mMol/L (136-145); Total Protein 4.5 gm/dL (5.7-8.2); eGFR > 60 See Note
[2025-01-14] MEDS: FLUCONAZOLE/NS 400 MG IVPB 400 MG/200 ML BAG 100 MG IV (21:50)
[2025-01-14] MEDS: HEPARIN SOD INJ 5000 UNIT/ML VIAL SC (21:50)
[2025-01-14 23:09] LABS: Potassium 2.4 mMol/L (3.4-5.1)
[2025-01-15] VITALS (18 sets, daily range): BP systolic 110–137; BP diastolic 65–92; PULSE 94–149; RESP 16–98; TEMP 36.1–36.7; O2SAT 94–99; BMI 20.7
[2025-01-15] MEDS: HYDROmorphone INJ 2 MG/ML VIAL 0.5 MG IVP ×3 (00:07→08:56)
[2025-01-15 00:27] LABS: Magnesium 1.9 mg/dL (1.6-2.6)
[2025-01-15] MEDS: Magnesium Sulfate 2 GM Ivpb 2 GM/50 ML BAG IV ×2 (01:19→14:45)
[2025-01-15] MEDS: POTASSIUM CHL 20 mEq IVPB 20 MEQ/100 ML BAG 50 MEQ IV ×6 (01:20→17:29)
[2025-01-15] MEDS: MULTIVITAMIN IV (03:27)
[2025-01-15] MEDS: [UNRECOGNIZED DRUG - OTHER] IV (03:27)
[2025-01-15] MEDS: POTASSIUM PHOS IV (03:27)
[2025-01-15] MEDS: AMINO ACID IV (03:27)
[2025-01-15] MEDS: PIPER/TAZO INJ 4.5 GM in SODIUM CHLORIDE 0.9% (P) 100 ML IV ×3 (05:38→21:54)
[2025-01-15] MEDS: INSULIN LISPRO (AdmeLOG) 1 UNIT/0.01 ML UNIT SC ×3 (05:48→17:20)
[2025-01-15 05:50] LABS: Basophils # (Auto) 0.1 Thou/mm3 (0.0-0.2); Basophils % (Auto) 1 % (0-2.5); Eosinophils % (Auto) 0 % (0-10); Hematocrit 35.9 % (36.0-46.0); Hemoglobin 12.2 g/dL (12.0-16.0); Immature Granulocytes % (Auto) 4 % (0-0); Immature Granulocytes Auto 0.89 Thou/mm3 (0.00-0.00); Lymphocytes % (Auto) 4 % (10-50); Mean Corpuscular Volume 86 fL (80-100); Monocytes # (Auto) 0.3 Thou/mm3 (0.0-0.8); Monocytes % (Auto) 1 % (0-12); Neutrophils # (Auto) 19.9 Thou/mm3 (1.8-7.7); Neutrophils % (Auto) 90 % (37-80); Nucleated Red Blood Cell % 0 /100 WBC (0); Platelet Count 104 Thou/mm3 (140-440); RDW Standard Deviation 50.4 fL (36.4-46.3); White Blood Count 22.2 Thou/mm3 (3.6-11.0)
[2025-01-15 06:30] LABS: Alanine Aminotransferase 26 U/L (10-49); Albumin, Serum 2.4 gm/dL (3.4-4.8); Albumin/Globulin Ratio 1.1 (1.2-2.2); Alkaline Phosphatase 112 U/L (46-116); Anion Gap 8 (7-16); Aspartate Amino Transferase 19 U/L (0-34); BUN/Creatinine Ratio 25 Ratio (12-20); Bilirubin,Total 0.5 mg/dL (0.3-1.2); Blood Urea Nitrogen < 5 mg/dL (9-23); Calcium (Corrected) 9.3 mg/dL (8.5-10.1); Carbon Dioxide 39.9 mMol/L (20.0-31.0); Chloride 97 mMol/L (98-107); Creatinine (Component) < 0.2 mg/dL (0.6-1.3); Estimated Creatinine Clearance 222.9 mL/min (>60); Globulin 2.2 gm/dL (2.3-3.5); Glucose 158 mg/dL (74-106); Magnesium 2.2 mg/dL (1.6-2.6); Osmolality,Calculated 288 (275-295); Phosphorous 1.4 mg/dL (2.4-5.1); Sodium 145 mMol/L (136-145); Total Protein 4.6 gm/dL (5.7-8.2); Vancomycin,Trough 21.2 mcg/mL (5.0-10.0); eGFR > 60 See Note
[2025-01-15 06:33] LABS: Potassium 2.5 mMol/L (3.4-5.1)
[2025-01-15] MEDS: PANTOPRAZOLE INJ 40 MG VIAL IVP (08:41)
[2025-01-15] MEDS: HEPARIN SOD INJ 5000 UNIT/ML VIAL SC ×2 (08:41→21:49)
[2025-01-15] MEDS: HYDROmorphone INJ 2 MG/ML VIAL 1 MG IVP (11:04)
[2025-01-15] MEDS: CALCIUM GLUC/NS 1000MG IVPB 1,000 MG/50 ML BAG 50 MG IV (11:13)
--- NOTE | 2025-01-15 11:25 | ESPR_ITS ---
<Statement entered by Mirza Beckman MD - 01/16/25 10:51> TOTAL TIME: 45MINUTES ON DIRECT MEDICAL CARE, MANAGEMENT - COORDINATION AND COUNSELING > 50% OF TOTAL TIME I saw and evaluated the patient. I reviewed the resident?s note and agree with findings and plan as documented in the resident?s note. Weaning off hydrocortisone especially given severe acute metabolic alkalosis. Diamox ordered. Hemodynamically stable. Pain is under control. Hopefully FINE SANDER pump can be ordered in we are checking with pharmacy. Otherwise stable to transfer to the telemetry floor Documentation for date of: 01/15/25 Subjective Subjective Interval history: Sophia Smith is a 59-year-old female with past medical history of inflammatory bowel disease/ulcerative colitis that was recently discharged on 12/21/2024 for IBS flareup that presented to [facility] with worsening abdominal pain and discomfort for 3 weeks. In ED, imaging showed pneumoperitoneum and was into OR for emergent exploratory laparotomy. During procedure, found to have multiple perforations of both small and large intestines. Per Dr. Crooks, patient will require surgery again on later date (tentatively on Wednesday pending on pressor support) and will require sedation and mechanical ventilation until then. Peritoneum remains open and started on TPN (no enteral feeds). ICU consulted for further management of critically ill patient. 01/12: Seen and examined at bedside in ICU. Remains on sedation with propofol and fentanyl as well as Levophed and vasopressin. Had central and A-line placed overnight and wound vac in place draining dark-brown material. Noted to have 1 L of urine output overnight that significantly decreased during day although she received 2.5 L IVF since being in ICU. Bedside ultrasound showed LV with good ejection fraction and IVC shows adequate fluid resuscitation. TPN started and fluconazole added given upper GI perforation. Sisters updated regarding patient's current condition and plan to go back to OR at later time. 01/13: Examined at bedside this AM. Continues to be on sedation with propofol and fentanyl for sedation whilst on mechanical ventilation. Pressor requirements are improving. Spoke with surgeon who ordered blood products and will take patient to OR after she is weaned completely off of pressors. Surgery also recommends patient be started on hydrocortisoe 100 mg qhrs to improve BP and to allow for pressor requirements to decrease. 01/14: Seen and examined at bedside in ICU, intubated, ventilated, and sedated but was alert and following commands. No acute overnight events. Levophed was turned off around midnight and vasopressin around 2 AM. Potassium noted to be 2.1 and repleted with 80 mEq prior to going to the OR with repeat of 2.9. Went to OR in a.m. and underwent ex lap with small bowel anastomosis with end ileostomy, cholecystectomy, and abdominal washout with closure. No evidence of intra-abdominal infection or abscesses. She was extubated and recovered in PACU and then returned to ICU. 01/15: Seen and examined at bedside in ICU. No acute overnight events reported. States that pain is 4 out of 10 in severity managed with 0.5 mg of Dilaudid, however, will start FINE SANDER pump. Continues to have hypokalemia of 2.5 and currently repeating. Also repleted magnesium, calcium, and phosphate. Will recheck labs in early afternoon. Per dietary, recommended adding thiamine to TPN. Noted to have metabolic alkalosis in setting of hydrocortisone which has mineralocorticoid activity as well as acetate in TPN that can contribute to alkalosis - spoke to pharmacy who will try and minimize amount in TPN. Currently tapering down on hydrocortisone, however, spoke to GI who recommended Solu-Medrol 30 mg IV twice daily and restarting mesalamine after no longer on strict bowel rest (no azathioprine). Exam Vital Signs Temp Pulse Resp BP Pulse Ox O2 Del Method O2 Flow Rate 97.0 F 114 H 21 H 126/65 96 Room Air 2 01/15/25 08:00 01/15/25 09:00 01/15/25 09:00 01/15/25 09:00 01/15/25 09:00 01/15/25 08:00 01/14/25 16:00 FiO2 30 01/14/25 08:00 Narrative Exam General: AOx3, in mild distress, speaking in full sentences, NG tube in place HEENT: NC/AT, mucous membranes moist, bilateral sclera anicteric Cardiovascular: tachycardic, regular rhythm, S1/S2 present, no murmurs appreciated Pulmonary: clear to auscultation bilaterally, no rales/rhonchi/wheezes Abdominal: tender to minimal palpation; mid-abdominal incision, soft, non- distended Musculoskeletal: normal ROM, no peripheral edema Skin: warm and dry, intact, no rashes Neuro: CN II-XII intact, no focal deficits Objective Labs 01/15/25 04:10 01/15/25 04:10 Labs: Laboratory Results - last 24 hr 01/14/25 01/14/25 01/14/25 14:20 19:45 21:35 WBC RBC Hgb Hct MCV MCH MCHC RDW Std Deviation Plt Count Neut % (Auto) Lymph % (Auto) [place] % (Auto) Eos % (Auto) Baso % (Auto) Neut # (Auto) Lymph # (Auto) [place] # (Auto) Eos # (Auto) Baso # (Auto) Immature Gran # (Auto) Absolute Nucleated RBC Immature Gran % Nucleated RBC % Sodium 147 H 150 H Potassium 2.3 L* D 2.8 L D 2.4 L* Chloride 106 108 H Carbon Dioxide 31.9 H 35.3 H Anion Gap 9 7 BUN < 5 L < 5 L Creatinine 0.2 L 0.2 L Estim Creat Clear Calc 222.9 222.9 eGFR > 60 > 60 BUN/Creatinine Ratio 25 H 25 H Glucose 220 H 214 H Calculated Osmolality 296 H 301 H Calcium 8.2 L 8.5 Corrected Calcium 9.5 9.8 Phosphorus 1.9 L Magnesium 1.9 Total Bilirubin 0.5 0.6 AST 29 20 ALT 19 25 Alkaline Phosphatase 103 103 Total Protein 4.5 L 4.5 L Albumin 2.4 L 2.4 L Globulin 2.1 L 2.1 L Albumin/Globulin Ratio 1.1 L 1.1 L Vancomycin Trough 01/15/25 04:10 WBC 22.2 H RBC 4.20 Hgb 12.2 Hct 35.9 L MCV 86 MCH 29.0 MCHC 34.0 RDW Std Deviation 50.4 H Plt Count 104 L Neut % (Auto) 90 H Lymph % (Auto) 4 L [place] % (Auto) 1 Eos % (Auto) 0 Baso % (Auto) 1 Neut # (Auto) 19.9 H Lymph # (Auto) 1.0 [place] # (Auto) 0.3 Eos # (Auto) 0.0 Baso # (Auto) 0.1 Immature Gran # (Auto) 0.89 H Absolute Nucleated RBC 0.00 Immature Gran % 4 H Nucleated RBC % 0 Sodium 145 Potassium 2.5 L* Chloride 97 L Carbon Dioxide 39.9 H Anion Gap 8 BUN < 5 L Creatinine < 0.2 L Estim Creat Clear Calc 222.9 eGFR > 60 BUN/Creatinine Ratio 25 H Glucose 158 H D Calculated Osmolality 288 Calcium 8.0 L Corrected Calcium 9.3 Phosphorus 1.4 L Magnesium 2.2 Total Bilirubin 0.5 AST 19 ALT 26 Alkaline Phosphatase 112 Total Protein 4.6 L Albumin 2.4 L Globulin 2.2 L Albumin/Globulin Ratio 1.1 L Vancomycin Trough 21.2 H* ABG Interpretation ABG results: 01/12/25 01/12/25 01/12/25 02:43 04:40 07:51 ABG pH 7.51 H 7.39 D 7.40 ABG pCO2 29 L 41 D 40 ABG pO2 235 H 145 H D 152 H ABG HCO3 23 25 25 ABG O2 Saturation 100 H 99 H 99 H ABG Base Excess 0 0 0 01/13/25 04:17 ABG pH 7.32 L ABG pCO2 43 ABG pO2 137 H ABG HCO3 22 ABG O2 Saturation 99 H ABG Base Excess -4 L Quality Measures Quality Measures none Assessment & Plan Assessment Current Active Medications: Generic Name Dose Route Start Last Admin Trade Name Freq PRN Reason Stop Dose Admin Dextrose 25 ml 01/13/25 06:35 Dextrose 50%-Water Inj 50 Ml Syringe IV 02/12/25 06:34 Q15MIN PRN BG 50-70 responsive npo pt Dextrose 50 ml 01/13/25 06:35 Dextrose 50%-Water Inj 50 Ml Syringe IV 02/12/25 06:34 Q15MIN PRN BG <50 OR BG <70 & pt unresponsive Glucagon 1 mg 01/13/25 06:35 Glucagon Inj 1 Mg Vial IM Q15MIN PRN BG <70, and no IV access Heparin Sodium (Porcine) 5,000 unit 01/13/25 21:00 01/15/25 08:41 Heparin Sod Inj 5000 Unit/Ml Vial SC 01/27/25 20:59 5,000 unit Q12HR CAMERON Administration Hydrocortisone Sodium Succinate 50 mg 01/15/25 11:15 Hydrocortisone Sod Succ Inj 100 Mg Vial IV 02/14/25 11:14 BID CAMERON Hydromorphone HCl 0.5 mg 01/14/25 13:42 01/15/25 08:56 Hydromorphone Inj 2 Mg/Ml Vial IVP 01/19/25 13:41 0.5 mg Q4HR PRN Administration PAIN SCALE 7-10 (Severe Piperacillin Sod/Tazobactam 100 mls @ 25 mls/hr 01/12/25 14:00 01/15/25 05:38 Sod 4.5 gm/ Sodium Chloride IV 01/18/25 23:23 25 mls/hr Q8HR CAMERON Administration Fat Emulsion Intravenous 500 mls @ 32 mls/hr 01/13/25 18:00 01/14/25 10:00 Intralipid 20% Iv IV 02/12/25 17:59 Infused TUTHSA@1800 CAMERON Infusion Fluconazole 400 mg in 200 mls @ 100 mls/hr 01/12/25 18:39 01/14/25 21:50 Diflucan/Ns Ivpb IV 01/19/25 18:38 100 mls/hr QDAY@2100 CAMERON Administration Potassium Phosphate 45 mmol/ 2,025 mls @ 60 mls/hr 01/15/25 03:35 01/15/25 03:27 Multivitamins/Minerals 10 ml/ IV 01/16/25 03:34 60 mls/hr Amino Acids .Q24H ONE Administration Acetaminophen 1,000 mg in 100 mls @ 250 mls/hr 01/14/25 16:47 Ofirmev Inj IV 01/15/25 16:41 Q6HR PRN PAIN SCALE 1-3 (mild Vancomycin HCl 750 mg/ Sodium 250 mls @ 200 mls/hr 01/15/25 14:00 Chloride IV 01/22/25 13:59 Q8HR CAMERON Protocol Potassium Chloride 20 meq in 100 mls @ 50 mls/hr 01/15/25 12:00 Kcl Ivpb IV 01/15/25 15:59 Q2H CAMERON Calcium Gluconate/Sodium Chloride 1,000 mg in 50 mls @ 50 mls/hr 01/15/25 10:41 01/15/25 11:13 Calcium Gluc/Ns 1000mg Ivpb IV 01/15/25 11:40 50 mls/hr X1 ONE Administration Acetazolamide Sodium 500 mg/ 50 mls @ 100 mls/hr 01/15/25 11:30 Sodium Chloride IV 02/14/25 11:29 DAILY CAMERON Insulin Human Lispro 0 unit 01/13/25 06:45 01/15/25 05:48 Insulin Lispro (Admelog) 1 Unit/0.01 Ml Unit SC 02/12/25 06:44 1 unit Q6HR CAMERON Administration Protocol Pantoprazole Sodium 40 mg 01/12/25 09:00 01/15/25 08:41 Pantoprazole Inj 40 Mg Vial IVP 02/11/25 08:59 40 mg QDAY CAMERON Administration Pharmacy Consult 1 each 01/12/25 09:00 Vancomycin Pharmacy To Dose 1 Each Each IV 02/11/25 08:59 QDAY PRN PROTOCOL Plan Sophia Smith is a 59-year-old female with past medical history of inflammatory bowel disease/ulcerative colitis on chronic steroids that was recently discharged on 12/21/2024 for IBS flareup and admitted on 01/11 for pneumoperitoneum requiring emergent ex-lap. Found to have multiple areas of small and large bowel perforation with feculent peritonitis as well as coloenteric fistulas. Underwent subtotal colectomy on 01/11 and subsequently admitted to the ICU for further management and underwent second procedure on 01/14. 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 Found to have multiple bowel perforations in small and large intestine causing feculent peritonitis. First operation on 01/11 with bowel resction and second on 01/14 with small bowel anastomosis with end ileostomy, cholecystectomy, and abdominal washout with closure. She was extubated after second procedure and recovered in PACU and then returned to ICU. Hydrocortisone started for BP support and currently tapering down. - Hydrocortisone discontinued -> starting solumedrol Pulmonary #Status-post intubation for airway protection Extubated on 01/14 Renal #Hypokalemia 01/15: K 2.8 -> 2.4 -> 2.5 -> 3.6 - Follow-up repeat labs and replete as needed #Hypomagnesemia, resolved - Continue to monitor and replete #Hypophosphatemia - Continue to monitor and replete #Hypoosmolar hypochloremic hyponatremia, resolved Gastrointestinal #Pneumoperitoneum s/p ex lap with subtotal colectomy Noted to have pneumoperitoneum on CT imaging and emergently admitted to surgery. Found to have multiple perforations in both large and small intestines and is status-post resection of small and large bowel on 01/11. Underwent second procedure on 01/14 -> ex lap with small bowel anastomosis with end ileostomy, cholecystectomy, and abdominal washout and closure. - Dr Crooks following, recommends strict bowel rest until 01/16 - Pain management: FINE SANDER started 01/15 #History of ulcerative colitis Likely cause of perforations with ulcerative colitis with concomittant prison steroid usage - GI recommends IV solu-medrol 30 mg IV BID and home mesalamine 400 mg PO QID after no longer on strict bowel rest Heme #Normocytic anemia Likely secondary to ulcerative colitis Presented with hemoglobin of 7.8 that improved to 9.2 after 4 units PRBC, and is also status-post 1 unit FFP - Stable, continue to monitor Endocrine #Hyperglycemia secondary to IV steroids - SSI every 6 hours Infectious disease #Peritonitis #Colitis Imaging showing diffuse nonspecific colitis secondary to perforations - Fluconazole 400 mg daily, Zosyn, and vancomycin - Blood cultures (01/11): NGTD Hospital management: Disposition: status-post second procedure, will observe in ICU for one more night Fluids: none Sedatives: none Pressors: none Diet: strict NPO Lines: right IJ central, arterial line GI prophylaxis: pantoprazole IV CODE STATUS: full code ----- Plan discussed with attending physician Dr. Karuna Pavon MD PGY-1 Internal Medicine
--- NOTE | 2025-01-15 11:28 | PD.SURPROG ---
Documentation for date of: 01/15/25 Subjective Subjective Narrative: Pt is seen and examined in ICU. She is awake and alert. She is complaining of inciosional pain. Exam Vital Signs Temp Pulse Resp BP Pulse Ox O2 Del Method O2 Flow Rate 97.0 F 114 H 21 H 126/65 96 Room Air 2 01/15/25 08:00 01/15/25 09:00 01/15/25 09:00 01/15/25 09:00 01/15/25 09:00 01/15/25 08:00 01/14/25 16:00 FiO2 30 01/14/25 08:00 Constitutional Constitutional: no acute distress Routine Abdominal Exam Abdominal: Present soft, tenderness (incisional tenderness. Incision with dressing clean, dry and intact), distended (mildly) and ostomy (ileostomy is pink, patent and present. Not productive at this time.) Assessment & Plan Assessment Additional comments: POD#3 s/p subtotal colectomy with en-bloc partial small bowel resection POD#1 s/p Re-exploration, SB anastomosis, cholecystectomy and end ileostomy Plan Keep NPO with NGT. Continue TPN. Correct electrolytes. Decrease hydrocortisone. Increase pain medication. Procedures Procedures Exploratory laparotomy, small bowel anastomosis with end ileostomy Cholecystectomy Abdominal washout and closure
[2025-01-15] MEDS: HYDROCORTISONE SOD SUCC INJ 100 MG VIAL 50 MG IV (11:35)
[2025-01-15] MEDS: ACETAzolaMIDE SOD 500 MG in SODIUM CHLORIDE 0.9% (P) 50 ML 100 MG IV (11:42)
[2025-01-15] MEDS: THIAMINE INJ 100 MG/ML VIAL 2 ML IV (11:43)
[2025-01-15 12:10] LABS: Base Excess, Venous 18 (-3-3); O2 Saturation, Venous 96 % (96-97); PCO2, Venous 37 mmHg (36-56); PO2, Venous 75 mmHg (15-58); pH, Venous 7.65 (7.33-7.66)
[2025-01-15 12:33] LABS: Thyroid Stimulating Hormone 2.48 uIU/mL (0.55-4.78)
[2025-01-15] MEDS: POT PHOS 15 mMol in NS 250 ML 15 MMOL/250 ML BAG 62.5 MMOL IV ×2 (13:00→17:00)
[2025-01-15 13:10] LABS: Magnesium 1.7 mg/dL (1.6-2.6); Phosphorous 1.5 mg/dL (2.4-5.1); Potassium 3.6 mMol/L (3.4-5.1)
[2025-01-15] MEDS: MIDAZOLAM INJ 1 MG/ML VIAL 2 ML IV (13:26)
[2025-01-15] MEDS: HYDROmorphone 1 MG/ML PCA SYRINGE 30ML PCA (13:58)
[2025-01-15] MEDS: Vancomycin Inj 750 MG in SODIUM CHLORIDE 0.9% 250 ML 250 ML 200 MG IV (14:46)
--- NOTE | 2025-01-15 16:02 | ESPR_ITS ---
<Statement entered by Marilu Saravia MD - 01/25/25 08:03> I reviewed above note and agree with findings and plans. I have also personally examined the patient with medicine team and went over assessment and plan with medical team including internet developer and resident physician. Documentation for date of: 01/15/25 Subjective Subjective Interval history: Patient was seen and examined at bedside this AM. No acute events overnight. ICU downgrade to medical floors. s/p subtotal colectomy DAY 1 : improving slowly Patient NPO until 01/16 per surgery recs, adequate urine output and mentation is at baseline. Exam Vital Signs Temp Pulse Resp BP Pulse Ox O2 Del Method O2 Flow Rate 97.0 F 114 H 21 H 126/65 96 Room Air 2 01/15/25 08:00 01/15/25 09:00 01/15/25 09:00 01/15/25 09:00 01/15/25 09:00 01/15/25 08:00 01/14/25 16:00 FiO2 30 01/14/25 08:00 Narrative Exam Constitutional Alert, oriented x3 and mild discomfort. HEENT Vision grossly intact. Patent nares. Trachea midline. NGT in place Respiratory Chest normal on inspection and clear to auscultation bilaterally. Cardiovascular S1 and S2 audible, RRR. No murmurs or carotid bruit. No gross JVD. Abdominal Soft, tender to palpation around surgical site. BS + Genitourinary No bladder tenderness, no flank pain. Normal to palpation. Musculoskeletal Extremities tone within normal limits. No LE edema. Neurological CN II - XII grossly intact. Extremity motor and sensation grossly intact. Skin Warm, dry and intact. No apparent lesions. Psychiatric Patient has a good affect, is cooperative. Objective Labs 01/15/25 04:10 01/15/25 11:51 Labs: Laboratory Results - last 24 hr 01/14/25 01/14/25 01/15/25 19:45 21:35 04:10 WBC 22.2 H RBC 4.20 Hgb 12.2 Hct 35.9 L MCV 86 MCH 29.0 MCHC 34.0 RDW Std Deviation 50.4 H Plt Count 104 L Neut % (Auto) 90 H Lymph % (Auto) 4 L [place] % (Auto) 1 Eos % (Auto) 0 Baso % (Auto) 1 Neut # (Auto) 19.9 H Lymph # (Auto) 1.0 [place] # (Auto) 0.3 Eos # (Auto) 0.0 Baso # (Auto) 0.1 Immature Gran # (Auto) 0.89 H Absolute Nucleated RBC 0.00 Immature Gran % 4 H Nucleated RBC % 0 VBG pH VBG pCO2 VBG pO2 VBG O2 Sat (Jae) VBG Base Excess Sodium 150 H 145 Potassium 2.8 L D 2.4 L* 2.5 L* Chloride 108 H 97 L Carbon Dioxide 35.3 H 39.9 H Anion Gap 7 8 BUN < 5 L < 5 L Creatinine 0.2 L < 0.2 L Estim Creat Clear Calc 222.9 222.9 eGFR > 60 > 60 BUN/Creatinine Ratio 25 H 25 H Glucose 214 H 158 H D Calculated Osmolality 301 H 288 Calcium 8.5 8.0 L Corrected Calcium 9.8 9.3 Phosphorus 1.4 L Magnesium 1.9 2.2 Total Bilirubin 0.6 0.5 AST 20 19 ALT 25 26 Alkaline Phosphatase 103 112 Total Protein 4.5 L 4.6 L Albumin 2.4 L 2.4 L Globulin 2.1 L 2.2 L Albumin/Globulin Ratio 1.1 L 1.1 L TSH Vancomycin Trough 21.2 H* 01/15/25 11:51 WBC RBC Hgb Hct MCV MCH MCHC RDW Std Deviation Plt Count Neut % (Auto) Lymph % (Auto) [place] % (Auto) Eos % (Auto) Baso % (Auto) Neut # (Auto) Lymph # (Auto) [place] # (Auto) Eos # (Auto) Baso # (Auto) Immature Gran # (Auto) Absolute Nucleated RBC Immature Gran % Nucleated RBC % VBG pH 7.65 VBG pCO2 37 VBG pO2 75 H VBG O2 Sat (Jae) 96 VBG Base Excess 18 H Sodium Potassium 3.6 D Chloride Carbon Dioxide Anion Gap BUN Creatinine Estim Creat Clear Calc eGFR BUN/Creatinine Ratio Glucose Calculated Osmolality Calcium Corrected Calcium Phosphorus 1.5 L Magnesium 1.7 Total Bilirubin AST ALT Alkaline Phosphatase Total Protein Albumin Globulin Albumin/Globulin Ratio TSH 2.48 D Vancomycin Trough ABG Interpretation ABG results: 01/12/25 01/12/25 01/12/25 02:43 04:40 07:51 ABG pH 7.51 H 7.39 D 7.40 ABG pCO2 29 L 41 D 40 ABG pO2 235 H 145 H D 152 H ABG HCO3 23 25 25 ABG O2 Saturation 100 H 99 H 99 H ABG Base Excess 0 0 0 VBG pH VBG pCO2 VBG pO2 VBG Base Excess 01/13/25 01/15/25 04:17 11:51 ABG pH 7.32 L ABG pCO2 43 ABG pO2 137 H ABG HCO3 22 ABG O2 Saturation 99 H ABG Base Excess -4 L VBG pH 7.65 VBG pCO2 37 VBG pO2 75 H VBG Base Excess 18 H Quality Measures Quality Measures none Assessment & Plan Assessment Current Active Medications: Generic Name Dose Route Start Last Admin Trade Name Freq PRN Reason Stop Dose Admin Dextrose 25 ml 01/13/25 06:35 Dextrose 50%-Water Inj 50 Ml Syringe IV 02/12/25 06:34 Q15MIN PRN BG 50-70 responsive npo pt Dextrose 50 ml 01/13/25 06:35 Dextrose 50%-Water Inj 50 Ml Syringe IV 02/12/25 06:34 Q15MIN PRN BG <50 OR BG <70 & pt unresponsive Glucagon 1 mg 01/13/25 06:35 Glucagon Inj 1 Mg Vial IM Q15MIN PRN BG <70, and no IV access Heparin Sodium (Porcine) 5,000 unit 01/13/25 21:00 01/15/25 08:41 Heparin Sod Inj 5000 Unit/Ml Vial SC 01/27/25 20:59 5,000 unit Q12HR CAMERON Administration Hydromorphone HCl 0 mg 01/15/25 13:00 01/15/25 13:58 Hydromorphone 1 Mg/Ml Line Prep Cook Syringe 30ml SANITATION DIRECTOR 01/20/25 12:59 30 mg UD CAMERON Administration Protocol Piperacillin Sod/Tazobactam 100 mls @ 25 mls/hr 01/12/25 14:00 01/15/25 14:43 Sod 4.5 gm/ Sodium Chloride IV 01/18/25 23:23 25 mls/hr Q8HR CAMERON Administration Fat Emulsion Intravenous 500 mls @ 32 mls/hr 01/13/25 18:00 01/14/25 10:00 Intralipid 20% Iv IV 02/12/25 17:59 Infused TUTHSA@1800 CAMERON Infusion Fluconazole 400 mg in 200 mls @ 100 mls/hr 01/12/25 18:39 01/14/25 21:50 Diflucan/Ns Ivpb IV 01/19/25 18:38 100 mls/hr QDAY@2100 CAMERON Administration Potassium Phosphate 45 mmol/ 2,025 mls @ 60 mls/hr 01/15/25 03:35 01/15/25 03:27 Multivitamins/Minerals 10 ml/ IV 01/16/25 03:34 60 mls/hr Amino Acids .Q24H ONE Administration Acetaminophen 1,000 mg in 100 mls @ 250 mls/hr 01/14/25 16:47 Ofirmev Inj IV 01/15/25 16:41 Q6HR PRN PAIN SCALE 1-3 (mild Vancomycin HCl 750 mg/ Sodium 250 mls @ 200 mls/hr 01/15/25 14:00 01/15/25 14:46 Chloride IV 01/22/25 13:59 200 mls/hr Q8HR CAMERON Administration Protocol Potassium Phosphate 15 mmol in 250 mls @ 62.5 mls/hr 01/15/25 11:26 01/15/25 13:00 Pot Phos 15 Mmol In Ns 250 Ml IV 01/15/25 19:25 62.5 mls/hr Q4H CAMERON Administration Acetazolamide Sodium 500 mg/ 50 mls @ 100 mls/hr 01/15/25 11:45 01/15/25 11:42 Sodium Chloride IV 02/14/25 11:44 100 mls/hr DAILY CAMERON Administration Insulin Human Lispro 0 unit 01/13/25 06:45 01/15/25 11:35 Insulin Lispro (Admelog) 1 Unit/0.01 Ml Unit SC 02/12/25 06:44 1 unit Q6HR CAMERON Administration Protocol Methylprednisolone Sodium Succinate 30 mg 01/15/25 21:00 Methylprednisolone Sod Succ 40 Mg Vial IV 01/22/25 20:59 BID CAMERON Pantoprazole Sodium 40 mg 01/12/25 09:00 01/15/25 08:41 Pantoprazole Inj 40 Mg Vial IVP 02/11/25 08:59 40 mg QDAY CAMERON Administration Pharmacy Consult 1 each 01/12/25 09:00 Vancomycin Pharmacy To Dose 1 Each Each IV 02/11/25 08:59 QDAY PRN PROTOCOL Plan Ms Sophia Smith is a 59-year-old female with past medical history of inflammatory bowel disease/ulcerative colitis on chronic steroids that was recently discharged on 12/21/2024 for IBS flareup and admitted on 01/11 for pneumoperitoneum requiring emergent ex-lap. Found to have multiple areas of small and large bowel perforation with feculent peritonitis as well as coloenteric fistulas. Underwent subtotal colectomy on 01/11 and subsequently admitted to the ICU for further management. patient was downgraded to medical floors on 01/15 for furtehr management. 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 Crohn's - CT on admission: pneumoperitoneum and went to OR emergently. Found to have multiple bowel perforations in small and large intestine causing feculent peritonitis. - 01/11 : First operation with bowel resction and second - Blood cultures (01/11): Negative - 01/14 : small bowel anastomosis with end ileostomy, cholecystectomy, and abdominal washout with closure. She was extubated in PACU and then returned to ICU Plan: - Continue IV Zosyn 4.5 q8H (01/12 - - Dr Crooks following, recommends strict bowel rest until 01/16 - Pain management: SANITATION DIRECTOR started 01/15 - GI recommends IV solu-medrol 30 mg IV BID - Will resume home mesalamine 400 mg PO QID, once off of NPO - Also on Fluconazole 400 mg daily per ICU management, unknown reason - ID consulted for further recommendations post-op Reactive Leukocytosis Hyperglycemia , acute WBC : 29 -> 24 -> 22 Likely secondary to steroid use Blood sugar >20 --> 170s now Plan: - Continue IV Methylpred as recomemnded by GI - Anticipate WBC correction with discontinuation of steroids in future. Patient is on broad spectrum antibiotics. - Continue SSI every 6 hours - Start Glargine 10 units HS Normocytic anemia - resolved Presented with hemoglobin of 7.8 that improved to 9.2 after 4 units PRBC, and is also status-post 1 unit FFP - 01/15 : Hb 12.2 , wnl : Stable, continue to monitor Hypophosphatemia P = 1.5 , likely due to poor oral intake Plan: Corrected with IV KPhos/Multivitamins @ 60cc/h Hospital management: Disposition: status-post second procedure, ICU -> med floors Diet: strict NPO , per gen surgery recommendations GI prophylaxis: pantoprazole IV CODE STATUS: full code Plan of care discussed with attending Dr Saravia , Marlon Kevin M.D. PGY2
[2025-01-15] MEDS: SODIUM CHLORIDE 0.9% 250 ML 250 ML 999 ML IV (17:13)
[2025-01-15 17:21] LABS: Magnesium 2.8 mg/dL (1.6-2.6); Phosphorous 3.1 mg/dL (2.4-5.1); Potassium 3.3 mMol/L (3.4-5.1)
--- NOTE | 2025-01-15 17:47 | ESPR_ITS ---
Documentation for date of: 01/15/25 Subjective Subjective Interval history: More alert and oriented WBC count is dropping from 24.6-22.2 She is off the pressors On TPN hemoglobin hematocrit 12.2 and 35.9 Exam Vital Signs Temp Pulse Resp BP Pulse Ox O2 Del Method O2 Flow Rate 97.0 F 114 H 21 H 126/65 96 Room Air 2 01/15/25 08:00 01/15/25 09:00 01/15/25 09:00 01/15/25 09:00 01/15/25 09:00 01/15/25 08:00 01/14/25 16:00 FiO2 30 01/14/25 08:00 Objective Labs 01/15/25 04:10 01/15/25 16:30 Labs: Laboratory Results - last 24 hr 01/14/25 01/14/25 01/15/25 19:45 21:35 04:10 WBC 22.2 H RBC 4.20 Hgb 12.2 Hct 35.9 L MCV 86 MCH 29.0 MCHC 34.0 RDW Std Deviation 50.4 H Plt Count 104 L Neut % (Auto) 90 H Lymph % (Auto) 4 L [place] % (Auto) 1 Eos % (Auto) 0 Baso % (Auto) 1 Neut # (Auto) 19.9 H Lymph # (Auto) 1.0 [place] # (Auto) 0.3 Eos # (Auto) 0.0 Baso # (Auto) 0.1 Immature Gran # (Auto) 0.89 H Absolute Nucleated RBC 0.00 Immature Gran % 4 H Nucleated RBC % 0 VBG pH VBG pCO2 VBG pO2 VBG O2 Sat (Jae) VBG Base Excess Sodium 150 H 145 Potassium 2.8 L D 2.4 L* 2.5 L* Chloride 108 H 97 L Carbon Dioxide 35.3 H 39.9 H Anion Gap 7 8 BUN < 5 L < 5 L Creatinine 0.2 L < 0.2 L Estim Creat Clear Calc 222.9 222.9 eGFR > 60 > 60 BUN/Creatinine Ratio 25 H 25 H Glucose 214 H 158 H D Calculated Osmolality 301 H 288 Calcium 8.5 8.0 L Corrected Calcium 9.8 9.3 Phosphorus 1.4 L Magnesium 1.9 2.2 Total Bilirubin 0.6 0.5 AST 20 19 ALT 25 26 Alkaline Phosphatase 103 112 Total Protein 4.5 L 4.6 L Albumin 2.4 L 2.4 L Globulin 2.1 L 2.2 L Albumin/Globulin Ratio 1.1 L 1.1 L TSH Vancomycin Trough 21.2 H* 01/15/25 01/15/25 11:51 16:30 WBC RBC Hgb Hct MCV MCH MCHC RDW Std Deviation Plt Count Neut % (Auto) Lymph % (Auto) [place] % (Auto) Eos % (Auto) Baso % (Auto) Neut # (Auto) Lymph # (Auto) [place] # (Auto) Eos # (Auto) Baso # (Auto) Immature Gran # (Auto) Absolute Nucleated RBC Immature Gran % Nucleated RBC % VBG pH 7.65 VBG pCO2 37 VBG pO2 75 H VBG O2 Sat (Jae) 96 VBG Base Excess 18 H Sodium Potassium 3.6 D 3.3 L Chloride Carbon Dioxide Anion Gap BUN Creatinine Estim Creat Clear Calc eGFR BUN/Creatinine Ratio Glucose Calculated Osmolality Calcium Corrected Calcium Phosphorus 1.5 L 3.1 Magnesium 1.7 2.8 H Total Bilirubin AST ALT Alkaline Phosphatase Total Protein Albumin Globulin Albumin/Globulin Ratio TSH 2.48 D Vancomycin Trough Impressions Impression: # Status post exploratory laparotomy subtotal colectomy and end ileostomy # On TPN # Leukocytosis improving # Off the pressors Continue current management ABG Interpretation ABG results: 01/12/25 01/12/25 01/12/25 02:43 04:40 07:51 ABG pH 7.51 H 7.39 D 7.40 ABG pCO2 29 L 41 D 40 ABG pO2 235 H 145 H D 152 H ABG HCO3 23 25 25 ABG O2 Saturation 100 H 99 H 99 H ABG Base Excess 0 0 0 VBG pH VBG pCO2 VBG pO2 VBG Base Excess 01/13/25 01/15/25 04:17 11:51 ABG pH 7.32 L ABG pCO2 43 ABG pO2 137 H ABG HCO3 22 ABG O2 Saturation 99 H ABG Base Excess -4 L VBG pH 7.65 VBG pCO2 37 VBG pO2 75 H VBG Base Excess 18 H Assessment & Plan A&P Narrative Pneumoperitoneum most likely perforated viscus and most likely culprit in this case is either colonic or gastric because of the steroids on board Plan N.p.o. NG to intermittent suction IV Zosyn IV Solu-Medrol 40 mg every 12 Surgical consultation Will follow patient most likely will need exploratory laparotomy tonight for further evaluation and management Time Spent With Patient Time: Total time spent is greater than 50% in coordination of care (as documented) at patient's floor/unit and/or counseling patient:
[2025-01-15] MEDS: INSULIN GLARGINE (Lantus) 5 UNIT/0.05 ML (PER 5 UNITS) 10 UNIT SC (21:30)
[2025-01-15] MEDS: FLUCONAZOLE/NS 400 MG IVPB 400 MG/200 ML BAG 100 MG IV (21:50)
[2025-01-15 22:32] LABS: Potassium 3.5 mMol/L (3.4-5.1)
[2025-01-16] VITALS (74 sets, daily range): BP systolic 117–139; BP diastolic 84–93; PULSE 80–171; RESP 14–98; TEMP 36.1–36.3; O2SAT 94–98; BMI 21.7
[2025-01-16] MEDS: POTASSIUM CHL 10 mEq IVPB 10 MEQ/100 ML BAG 100 MEQ IV ×4 (01:32→07:14)
[2025-01-16] MEDS: INSULIN LISPRO (AdmeLOG) 1 UNIT/0.01 ML UNIT SC ×5 (01:41→23:20)
[2025-01-16] MEDS: MAGNESIUM SULF IV (04:22)
[2025-01-16] MEDS: [UNRECOGNIZED DRUG - OTHER] IV (04:22)
[2025-01-16] MEDS: POT CHL ADDITIVE IV (04:22)
[2025-01-16] MEDS: POTASSIUM PHOS IV (04:22)
[2025-01-16] MEDS: PIPER/TAZO INJ 4.5 GM in SODIUM CHLORIDE 0.9% (P) 100 ML IV (05:17)
[2025-01-16 05:18] LABS: Basophils # (Auto) 0.1 Thou/mm3 (0.0-0.2); Basophils % (Auto) 0 % (0-2.5); Eosinophils # (Auto) 0.6 Thou/mm3 (0.0-0.5); Eosinophils % (Auto) 4 % (0-10); Hematocrit 36.8 % (36.0-46.0); Hemoglobin 12.4 g/dL (12.0-16.0); Immature Granulocytes % (Auto) 3 % (0-0); Immature Granulocytes Auto 0.46 Thou/mm3 (0.00-0.00); Lymphocytes # (Auto) 0.7 Thou/mm3 (1.0-4.8); Lymphocytes % (Auto) 4 % (10-50); Mean Corpuscular HGB Conc 33.7 g/dl (31.0-37.0); Mean Corpuscular Hemoglobin 29.7 pg (25.0-35.0); Mean Corpuscular Volume 88 fL (80-100); Monocytes # (Auto) 0.3 Thou/mm3 (0.0-0.8); Monocytes % (Auto) 2 % (0-12); Neutrophils # (Auto) 12.9 Thou/mm3 (1.8-7.7); Neutrophils % (Auto) 86 % (37-80); Nucleated Red Blood Cell % 0 /100 WBC (0); Platelet Count 116 Thou/mm3 (140-440); RDW Standard Deviation 52.9 fL (36.4-46.3); Red Blood Count 4.18 Miln/mm3 (4.00-5.20); White Blood Count 14.9 Thou/mm3 (3.6-11.0)
[2025-01-16 06:01] LABS: Alanine Aminotransferase 26 U/L (10-49); Albumin, Serum 2.7 gm/dL (3.4-4.8); Albumin/Globulin Ratio 1.1 (1.2-2.2); Alkaline Phosphatase 129 U/L (46-116); Anion Gap 8 (7-16); Aspartate Amino Transferase 15 U/L (0-34); BUN/Creatinine Ratio 40 Ratio (12-20); Bilirubin,Total 0.6 mg/dL (0.3-1.2); Blood Urea Nitrogen 8 mg/dL (9-23); Calcium 8.3 mg/dL (8.3-10.6); Calcium (Corrected) 9.3 mg/dL (8.5-10.1); Carbon Dioxide 29.2 mMol/L (20.0-31.0); Chloride 103 mMol/L (98-107); Creatinine (Component) 0.2 mg/dL (0.6-1.3); Estimated Creatinine Clearance 222.9 mL/min (>60); Globulin 2.4 gm/dL (2.3-3.5); Glucose 194 mg/dL (74-106); Magnesium 1.9 mg/dL (1.6-2.6); Osmolality,Calculated 282 (275-295); Phosphorous 1.9 mg/dL (2.4-5.1); Potassium 3.3 mMol/L (3.4-5.1); Sodium 140 mMol/L (136-145); Total Protein 5.1 gm/dL (5.7-8.2); eGFR > 60 See Note
[2025-01-16] MEDS: POTASSIUM PHOS 22.5 MMOL in SODIUM CHLORIDE 0.9% 500 ML 500 ML 84.583 MMOL IV (09:51)
[2025-01-16] MEDS: ACETAzolaMIDE SOD 500 MG in SODIUM CHLORIDE 0.9% (P) 50 ML 100 MG IV (09:52)
[2025-01-16] MEDS: ALBUMIN HUMAN 25% IVPB 25 GM/100 ML BTL IV (09:52)
[2025-01-16] MEDS: ENOXAPARIN SOD INJ 40 MG/0.4 ML SYRINGE SC (09:53)
[2025-01-16] MEDS: PANTOPRAZOLE INJ 40 MG VIAL IVP (09:53)
--- NOTE | 2025-01-16 09:59 | ESPR_ITS ---
Documentation for date of: 01/16/25 Subjective Subjective Narrative: Patient is seen and examined in telemetry unit. She is complaining of incisional pain, controlled with BECK OPERATOR. She denies nausea or vomiting. Exam Vital Signs Temp Pulse Resp BP Pulse Ox O2 Del Method O2 Flow Rate 97.3 F 93 21 H 139/91 H 98 Room Air 2 01/16/25 08:00 01/16/25 08:23 01/16/25 08:23 01/16/25 08:00 01/16/25 08:00 01/16/25 08:00 01/14/25 16:00 FiO2 30 01/14/25 08:00 Constitutional Constitutional: no acute distress Routine Abdominal Exam Comments: Abdomen is soft and mildly distended. Incision is clean, dry and intact. No significant bowel sounds today. Ileostomy is pink, patent and present without any activity Assessment & Plan Assessment Additional comments: POD#4 s/p subtotal colectomy with en-bloc partial small bowel resection POD#2 s/p Re-exploration, SB anastomosis, cholecystectomy and end ileostomy Plan Clamped NG tube, may have ice chips. Continue TPN and IV antibiotics. Will consult physical therapy to assist in ambulation Procedures Procedures Exploratory laparotomy, small bowel anastomosis with end ileostomy Cholecystectomy Abdominal washout and closure
[2025-01-16 10:08] LABS: Misc Send Out* See Sep Rpt
[2025-01-16] MEDS: ALBUTEROL/IPRATROPIUM (Duoneb) RT SOL 3 ML NEBU INH (12:04)
[2025-01-16] MEDS: DEXTROSE 5% IV ×3 (12:09→23:08)
[2025-01-16] MEDS: WATER IV ×3 (12:09→23:08)
[2025-01-16] MEDS: PIPER IV ×3 (12:09→23:08)
[2025-01-16] MEDS: TAZO IV ×3 (12:09→23:08)
[2025-01-16] MEDS: HYDROmorphone 1 MG/ML PCA SYRINGE 30ML PCA (14:07)
[2025-01-16 14:46] LABS: Albumin, Serum 3.4 gm/dL (3.4-4.8); Anion Gap 12 (7-16); BUN/Creatinine Ratio 30 Ratio (12-20); Blood Urea Nitrogen 9 mg/dL (9-23); Calcium 8.8 mg/dL (8.3-10.6); Calcium (Corrected) 9.3 mg/dL (8.5-10.1); Carbon Dioxide 22.6 mMol/L (20.0-31.0); Chloride 103 mMol/L (98-107); Creatinine (Component) 0.3 mg/dL (0.6-1.3); Estimated Creatinine Clearance 148.6 mL/min (>60); Glucose 196 mg/dL (74-106); Osmolality,Calculated 279 (275-295); Phosphorous 2.3 mg/dL (2.4-5.1); Potassium 3.4 mMol/L (3.4-5.1); Sodium 138 mMol/L (136-145); eGFR > 60 See Note
--- NOTE | 2025-01-16 15:43 | PD.RESPRO ---
Documentation for date of: 01/16/25 Subjective Subjective Interval history: 01/16/2025: Pt examined at bedside. Pt reports she did not sleep well and no other acute overnight events. Pt reports that she is complaining of some phelgm in her throat, however, does not want to cough because it hurts her abdomen. Her pain is tolerable with the Dilaudid pump at this point. She is trying to have ice chips but minimally tolerates it. No other complaints at this time. Exam Vital Signs Temp Pulse Resp BP Pulse Ox O2 Del Method O2 Flow Rate 97.2 F 115 H 36 H 117/86 H 96 Room Air 2 01/16/25 12:00 01/16/25 14:30 01/16/25 14:30 01/16/25 12:00 01/16/25 14:30 01/16/25 12:00 01/14/25 16:00 FiO2 30 01/14/25 08:00 Narrative Exam General: AAOx3, appears to be weak and frail, pleasant woman HEENT: Moist mucous membranes, conjunctiva clear, EOMI, PERRLA, NG tube present Cardiovascular: S1, S2, radial pulses +2 bilat, RRR Pulmonary: Some wheezing, cough present GI: Incision does not appear to be infected, erythematous, abd slightly tender to palpitation Extremities: No presence of trace or pitting edema in lower extremities bilaterally, dorsalis pedis pulses +2 bilaterally Neuro: AAOx3, no focal motor or sensory deficits in the UE or LE bilat Psych: Good judgement, thought and behavior. Cooperative Objective Labs 01/17/25 04:40 01/17/25 04:40 Labs: Laboratory Results - last 24 hr 01/15/25 01/15/25 01/16/25 16:30 22:01 04:33 WBC 14.9 H D RBC 4.18 Hgb 12.4 Hct 36.8 MCV 88 MCH 29.7 MCHC 33.7 RDW Std Deviation 52.9 H Plt Count 116 L Neut % (Auto) 86 H Lymph % (Auto) 4 L [place] % (Auto) 2 Eos % (Auto) 4 Baso % (Auto) 0 Neut # (Auto) 12.9 H Lymph # (Auto) 0.7 L [place] # (Auto) 0.3 Eos # (Auto) 0.6 H Baso # (Auto) 0.1 Immature Gran # (Auto) 0.46 H Absolute Nucleated RBC 0.00 Immature Gran % 3 H Nucleated RBC % 0 Sodium 140 Potassium 3.3 L 3.5 3.3 L Chloride 103 Carbon Dioxide 29.2 Anion Gap 8 BUN 8 L Creatinine 0.2 L Estim Creat Clear Calc 222.9 eGFR > 60 BUN/Creatinine Ratio 40 H Glucose 194 H Calculated Osmolality 282 Calcium 8.3 Corrected Calcium 9.3 Phosphorus 3.1 1.9 L Magnesium 2.8 H 2.0 1.9 Total Bilirubin 0.6 AST 15 ALT 26 Alkaline Phosphatase 129 H Total Protein 5.1 L Albumin 2.7 L Globulin 2.4 Albumin/Globulin Ratio 1.1 L 01/16/25 13:38 WBC RBC Hgb Hct MCV MCH MCHC RDW Std Deviation Plt Count Neut % (Auto) Lymph % (Auto) [place] % (Auto) Eos % (Auto) Baso % (Auto) Neut # (Auto) Lymph # (Auto) [place] # (Auto) Eos # (Auto) Baso # (Auto) Immature Gran # (Auto) Absolute Nucleated RBC Immature Gran % Nucleated RBC % Sodium 138 Potassium 3.4 Chloride 103 Carbon Dioxide 22.6 Anion Gap 12 BUN 9 Creatinine 0.3 L Estim Creat Clear Calc 148.6 eGFR > 60 BUN/Creatinine Ratio 30 H Glucose 196 H Calculated Osmolality 279 Calcium 8.8 Corrected Calcium 9.3 Phosphorus 2.3 L Magnesium Total Bilirubin AST ALT Alkaline Phosphatase Total Protein Albumin 3.4 D Globulin Albumin/Globulin Ratio ABG Interpretation ABG results: 01/12/25 01/12/25 01/12/25 02:43 04:40 07:51 ABG pH 7.51 H 7.39 D 7.40 ABG pCO2 29 L 41 D 40 ABG pO2 235 H 145 H D 152 H ABG HCO3 23 25 25 ABG O2 Saturation 100 H 99 H 99 H ABG Base Excess 0 0 0 VBG pH VBG pCO2 VBG pO2 VBG Base Excess 01/13/25 01/15/25 04:17 11:51 ABG pH 7.32 L ABG pCO2 43 ABG pO2 137 H ABG HCO3 22 ABG O2 Saturation 99 H ABG Base Excess -4 L VBG pH 7.65 VBG pCO2 37 VBG pO2 75 H VBG Base Excess 18 H Quality Measures Quality Measures none Assessment & Plan Assessment Current Active Medications: Generic Name Dose Route Start Last Admin Trade Name Freq PRN Reason Stop Dose Admin Albuterol/Ipratropium 3 ml 01/16/25 11:56 01/16/25 12:04 Albuterol/Ipratropium (Duoneb) Rt Bambi 3 Ml Nebu INH 02/15/25 14:59 3 ml Q4HRRT PRN Administration SHORTNESS OF BREATH OR WHEEZE Dextrose 50 ml 01/13/25 06:35 Dextrose 50%-Water Inj 50 Ml Syringe IV 02/12/25 06:34 Q15MIN PRN BG <50 OR BG <70 & pt unresponsive Enoxaparin Sodium 40 mg 01/16/25 09:00 01/16/25 09:53 Enoxaparin Sod Inj 40 Mg/0.4 Ml Syringe SC 01/30/25 08:59 40 mg QDAY CAMERON Administration Glucagon 1 mg 01/13/25 06:35 Glucagon Inj 1 Mg Vial IM Q15MIN PRN BG <70, and no IV access Guaifenesin 100 mg 01/16/25 11:54 Guaifenesin Syrup 200 Mg/10 Ml Udc NG 02/15/25 11:53 QID PRN COUGH Protocol Hydromorphone HCl 0 mg 01/15/25 13:00 01/16/25 14:07 Hydromorphone 1 Mg/Ml Nuclear Engineer Syringe 30ml BIOTECHNICIAN 01/20/25 12:59 30 mg UD CAMERON Administration Protocol Fat Emulsion Intravenous 500 mls @ 32 mls/hr 01/13/25 18:00 01/14/25 10:00 Intralipid 20% Iv IV 02/12/25 17:59 Infused [id number]@1800 CAMERON Infusion Potassium Phosphate 30 mmol/ 2,045 mls @ 60 mls/hr 01/16/25 04:15 01/16/25 04:22 Potassium Chloride 40 meq/ IV 01/17/25 04:14 60 mls/hr Magnesium Sulfate 2 gm/ .Q24H ONE Administration Thiamine HCl 100 mg/ Multivitamins/Minerals 10 ml/ Amino Acids Piperacillin Sod/Tazobactam 100 mls @ 200 mls/hr 01/16/25 12:00 01/16/25 12:09 Sod 3.375 gm/ Dextrose IV 01/23/25 11:59 200 mls/hr Q6HR CAMERON Administration Insulin Glargine 10 unit 01/15/25 21:00 02/17/25 21:30 Insulin Glargine (Lantus) 5 Unit/0.05 Ml (Per 5 Units) SC 02/14/25 20:59 10 unit HS CAMERON Administration Insulin Human Lispro 0 unit 01/13/25 06:45 01/16/25 12:10 Insulin Lispro (Admelog) 1 Unit/0.01 Ml Unit SC 02/12/25 06:44 1 unit Q6HR CAMERON Administration Protocol Methylprednisolone Sodium Succinate 20 mg 01/16/25 21:00 Methylprednisolone Sod Succ 40 Mg Vial IV 01/23/25 20:59 BID CAMERON Pantoprazole Sodium 40 mg 01/12/25 09:00 01/16/25 09:53 Pantoprazole Inj 40 Mg Vial IVP 02/11/25 08:59 40 mg QDAY CAMERON Administration Plan Assessment Ms Sophia Smith is a 59-year-old female with past medical history of inflammatory bowel disease/ulcerative colitis on chronic steroids that was recently discharged on 12/21/2024 for IBS flareup and admitted on 01/11 for pneumoperitoneum requiring emergent ex-lap. Found to have multiple areas of small and large bowel perforation with feculent peritonitis as well as coloenteric fistulas. Underwent subtotal colectomy on 01/11 and subsequently admitted to the ICU for further management. patient was downgraded to medical floors on 01/15 for furtehr management. 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 Crohn's - CT on admission: pneumoperitoneum and went to OR emergently. Found to have multiple bowel perforations in small and large intestine causing feculent peritonitis. - 01/11 : First operation with bowel resction and second - Blood cultures (01/11): Negative - 01/14 : small bowel anastomosis with end ileostomy, cholecystectomy, and abdominal washout with closure. She was extubated in PACU and then returned to ICU - 01/16: Continue with Ice chips (ok with Surgeon), pain control, will wean down off dilaudid pump. Will need to wean off TPN at some point Plan: - Continue IV Zosyn 4.5 q8H (01/12 - - Dr Crooks following, appreciate recs - Pain management: BIOTECHNICIAN started 01/15, will wean off eventually - Continue with IV solu-medrol 20 mg IV BID - Will resume home mesalamine 400 mg PO QID, once off of NPO - D/c Fluconazole - ID consulted for further recommendations post-op Dyspnea Cough It hurts for patient to cough at this time Would likely benefit from some mucolytic at this point Pt is maintaining oxygen saturations well Plan: - Continue with Mucinex Syrup - Duonebs q4h PRN - Chest physiotherapy Reactive Leukocytosis Hyperglycemia , acute WBC : 29 -> 24 -> 22 Likely secondary to steroid use Blood sugar >20 --> 170s now Plan: - Continue IV Methylpred 20 mg IV BID as recomemnded by GI - Anticipate WBC correction with discontinuation of steroids in future. Patient is on broad spectrum antibiotics. - Continue SSI every 6 hours - Continue Glargine 10 units HS Normocytic anemia - resolved Presented with hemoglobin of 7.8 that improved to 9.2 after 4 units PRBC, and is also status-post 1 unit FFP - 01/15 : Hb 12.2 , wnl : Stable, continue to monitor Electrolyte abnormalities Hypokalemia Hypophosphatemia Likely related to poor oral intake and absorption Currently on TPN, will adjust with TPN pharmacy for adequate electrolytes Plan: - Corrected with IV KPhos/Multivitamins @ 60cc/h - KPhos 22.5 x1 #Health Maintenance Disposition: Telemetry DVT prophylaxis: Lovenox GI prophylaxis: Protonix 40 IV Diet: on TPN, Ice chips are allowed CODE STATUS: Full Patient seen and care discussed with my senior resident, Dr. Katz, and my attending physician, Dr. Chris Hendricks, PGY-1 Attending Provider Attestation/Addendum I have examined the patient, reviewed labs and imaging findings, discussed the case with the resident(s), and reviewed entered orders. I agree with the plan of care as outlined in this note, with these additional summaries/recommendations: Patient seen at bedside. No acute overnight events. Today patient is reporting significant secretions and we will give a dose of mucolytic to see if patient tolerates. Continue Zosyn for likely aspiration pneumonia and intra-abdominal infection. Patient initially had subtotal colectomy for multiple large and small bowel perforations and is now postoperative day #2 status post small bowel anastomosis, cholecystectomy and end ileostomy. Patient was seen by general surgery today and NG tube clamped. Start ice chips. physical therapy consultation. Leukocytosis improving. Continue IV Solu-Medrol and mesalamine for IBD exacerbation. Gastroenterology following. Mild electrolyte abnormalities present and replacement given. Repeat hematology and chemistry panel in AM. Patient and family updated on the plan and in agreement. Dr. Perez
[2025-01-16] MEDS: FAT EMULSIONS 20% IV 500 ML 32 ML IV (18:05)
--- NOTE | 2025-01-16 19:18 | PD.IMPROG ---
Documentation for date of: 01/16/25 Subjective Subjective Interval history: Patient improving WBC count 14.9 hemoglobin hematocrit 12.4 and 36.8 Alert oriented Off the pressors Exam Vital Signs Temp Pulse Resp BP Pulse Ox O2 Del Method O2 Flow Rate 97.2 F 117 H 24 H 136/93 H 97 Room Air 2 01/16/25 15:54 01/16/25 18:15 01/16/25 18:15 01/16/25 15:54 01/16/25 18:15 01/16/25 15:54 01/14/25 16:00 FiO2 30 01/14/25 08:00 Objective Labs 01/16/25 04:33 01/16/25 13:38 Labs: Laboratory Results - last 24 hr 01/15/25 01/16/25 01/16/25 22:01 04:33 13:38 WBC 14.9 H D RBC 4.18 Hgb 12.4 Hct 36.8 MCV 88 MCH 29.7 MCHC 33.7 RDW Std Deviation 52.9 H Plt Count 116 L Neut % (Auto) 86 H Lymph % (Auto) 4 L [place] % (Auto) 2 Eos % (Auto) 4 Baso % (Auto) 0 Neut # (Auto) 12.9 H Lymph # (Auto) 0.7 L [place] # (Auto) 0.3 Eos # (Auto) 0.6 H Baso # (Auto) 0.1 Immature Gran # (Auto) 0.46 H Absolute Nucleated RBC 0.00 Immature Gran % 3 H Nucleated RBC % 0 Sodium 140 138 Potassium 3.5 3.3 L 3.4 Chloride 103 103 Carbon Dioxide 29.2 22.6 Anion Gap 8 12 BUN 8 L 9 Creatinine 0.2 L 0.3 L Estim Creat Clear Calc 222.9 148.6 eGFR > 60 > 60 BUN/Creatinine Ratio 40 H 30 H Glucose 194 H 196 H Calculated Osmolality 282 279 Calcium 8.3 8.8 Corrected Calcium 9.3 9.3 Phosphorus 1.9 L 2.3 L Magnesium 2.0 1.9 Total Bilirubin 0.6 AST 15 ALT 26 Alkaline Phosphatase 129 H Total Protein 5.1 L Albumin 2.7 L 3.4 D Globulin 2.4 Albumin/Globulin Ratio 1.1 L Impressions Impression: # Status post subtotal colectomy for multiple perforations of the colon # Status post resection and block of the small intestine with end ileostomy Continue current management ABG Interpretation ABG results: 01/12/25 01/12/25 01/12/25 02:43 04:40 07:51 ABG pH 7.51 H 7.39 D 7.40 ABG pCO2 29 L 41 D 40 ABG pO2 235 H 145 H D 152 H ABG HCO3 23 25 25 ABG O2 Saturation 100 H 99 H 99 H ABG Base Excess 0 0 0 VBG pH VBG pCO2 VBG pO2 VBG Base Excess 01/13/25 01/15/25 04:17 11:51 ABG pH 7.32 L ABG pCO2 43 ABG pO2 137 H ABG HCO3 22 ABG O2 Saturation 99 H ABG Base Excess -4 L VBG pH 7.65 VBG pCO2 37 VBG pO2 75 H VBG Base Excess 18 H Assessment & Plan A&P Narrative Pneumoperitoneum most likely perforated viscus and most likely culprit in this case is either colonic or gastric because of the steroids on board Plan N.p.o. NG to intermittent suction IV Zosyn IV Solu-Medrol 40 mg every 12 Surgical consultation Will follow patient most likely will need exploratory laparotomy tonight for further evaluation and management Time Spent With Patient Time: Total time spent is greater than 50% in coordination of care (as documented) at patient's floor/unit and/or counseling patient:
[2025-01-16] MEDS: LORazepam 2 MG/ML VIAL 0.25 MG IVP (19:38)
[2025-01-16] MEDS: INSULIN GLARGINE (Lantus) 5 UNIT/0.05 ML (PER 5 UNITS) 10 UNIT SC (20:31)
[2025-01-16] MEDS: MIDAZOLAM INJ 1 MG/ML VIAL 2 ML IV (21:36)
[2025-01-17] VITALS (11 sets, daily range): BP systolic 101–119; BP diastolic 70–88; PULSE 100–137; RESP 18–98; TEMP 36.1–36.7; O2SAT 94–98
--- NOTE | 2025-01-17 00:58 | PC.RT ---
two min after starting CPT the pt requested I stop due to it causing pain.
[2025-01-17] MEDS: [UNRECOGNIZED DRUG - OTHER] IV (03:25)
[2025-01-17] MEDS: THIAMINE IV ×2 (03:25→18:10)
[2025-01-17] MEDS: MULTIVITAMIN IV (03:25)
[2025-01-17] MEDS: POT CHL ADDITIVE IV ×2 (03:25→18:10)
[2025-01-17] MEDS: DEXTROSE 5% IV ×2 (05:04→12:33)
[2025-01-17] MEDS: PIPER IV ×2 (05:04→12:33)
[2025-01-17] MEDS: WATER IV ×2 (05:04→12:33)
[2025-01-17] MEDS: TAZO IV ×2 (05:04→12:33)
[2025-01-17] MEDS: INSULIN LISPRO (AdmeLOG) 1 UNIT/0.01 ML UNIT SC (05:23)
[2025-01-17 05:46] LABS: Basophils # (Auto) 0.1 Thou/mm3 (0.0-0.2); Basophils % (Auto) 1 % (0-2.5); Eosinophils % (Auto) 0 % (0-10); Hematocrit 37.5 % (36.0-46.0); Hemoglobin 12.7 g/dL (12.0-16.0); Immature Granulocytes % (Auto) 5 % (0-0); Immature Granulocytes Auto 1.16 Thou/mm3 (0.00-0.00); Lymphocytes # (Auto) 1.5 Thou/mm3 (1.0-4.8); Lymphocytes % (Auto) 7 % (10-50); Mean Corpuscular HGB Conc 33.9 g/dl (31.0-37.0); Mean Corpuscular Hemoglobin 29.4 pg (25.0-35.0); Mean Corpuscular Volume 87 fL (80-100); Monocytes # (Auto) 0.4 Thou/mm3 (0.0-0.8); Monocytes % (Auto) 2 % (0-12); Neutrophils # (Auto) 19.9 Thou/mm3 (1.8-7.7); Neutrophils % (Auto) 86 % (37-80); Nucleated Red Blood Cell % 0 /100 WBC (0); Platelet Count 136 Thou/mm3 (140-440); RDW Standard Deviation 51.8 fL (36.4-46.3); Red Blood Count 4.32 Miln/mm3 (4.00-5.20)
[2025-01-17 05:47] LABS: White Blood Count 23.2 Thou/mm3 (3.6-11.0)
[2025-01-17 06:21] LABS: Alanine Aminotransferase 66 U/L (10-49); Albumin, Serum 3.4 gm/dL (3.4-4.8); Albumin/Globulin Ratio 1.3 (1.2-2.2); Alkaline Phosphatase 214 U/L (46-116); Anion Gap 12 (7-16); Aspartate Amino Transferase 61 U/L (0-34); BUN/Creatinine Ratio 37 Ratio (12-20); Blood Urea Nitrogen 11 mg/dL (9-23); Calcium 9.2 mg/dL (8.3-10.6); Calcium (Corrected) 9.7 mg/dL (8.5-10.1); Carbon Dioxide 22.9 mMol/L (20.0-31.0); Chloride 102 mMol/L (98-107); Creatinine (Component) 0.3 mg/dL (0.6-1.3); Estimated Creatinine Clearance 148.6 mL/min (>60); Globulin 2.6 gm/dL (2.3-3.5); Glucose 161 mg/dL (74-106); Magnesium 2.2 mg/dL (1.6-2.6); Osmolality,Calculated 276 (275-295); Phosphorous 1.1 mg/dL (2.4-5.1); Sodium 137 mMol/L (136-145); eGFR > 60 See Note
[2025-01-17 06:27] LABS: Potassium 2.6 mMol/L (3.4-5.1)
[2025-01-17] MEDS: POTASSIUM CHL 10 mEq IVPB 10 MEQ/100 ML BAG 100 MEQ IV ×3 (07:18→18:10)
[2025-01-17] MEDS: PANTOPRAZOLE INJ 40 MG VIAL IVP (08:19)
[2025-01-17] MEDS: POTASSIUM PHOS 22.5 MMOL in SODIUM CHLORIDE 0.9% 500 ML 500 ML 82.778 MMOL IV (08:44)
--- NOTE | 2025-01-17 09:03 | PC.SS ---
Follow up note: SS sent out inquiry for local SNF placement. PASRR completed. SS will follow up with patient on preference. Patient worked with PT and is max assist.
[2025-01-17] MEDS: POTASSIUM CHL 10 mEq IVPB 10 MEQ/100 ML BAG 25 MEQ IV ×2 (09:44→12:35)
--- NOTE | 2025-01-17 10:02 | PD.IMPROG ---
Documentation for date of: 01/17/25 Subjective Subjective Interval history: Patient evaluated She is somewhat more alert and oriented today Potassium 2.6 WBC count is jumped up to 23.2 but hemoglobin hematocrit stable at 12.7 and 37.0 Met with the family Exam Vital Signs Temp Pulse Resp BP Pulse Ox O2 Del Method O2 Flow Rate 98.0 F 106 H 28 H 119/87 H 95 Room Air 2 01/17/25 08:00 01/17/25 08:00 01/17/25 08:00 01/17/25 08:00 01/17/25 08:00 01/17/25 08:00 01/14/25 16:00 FiO2 30 01/14/25 08:00 Objective Labs 01/17/25 04:40 01/17/25 04:40 Labs: Laboratory Results - last 24 hr 01/16/25 01/17/25 13:38 04:40 WBC 23.2 H D RBC 4.32 Hgb 12.7 Hct 37.5 MCV 87 MCH 29.4 MCHC 33.9 RDW Std Deviation 51.8 H Plt Count 136 L Neut % (Auto) 86 H Lymph % (Auto) 7 L [place] % (Auto) 2 Eos % (Auto) 0 Baso % (Auto) 1 Neut # (Auto) 19.9 H Lymph # (Auto) 1.5 [place] # (Auto) 0.4 Eos # (Auto) 0.0 Baso # (Auto) 0.1 Immature Gran # (Auto) 1.16 H Absolute Nucleated RBC 0.00 Immature Gran % 5 H Nucleated RBC % 0 Sodium 138 137 Potassium 3.4 2.6 L* D Chloride 103 102 Carbon Dioxide 22.6 22.9 Anion Gap 12 12 BUN 9 11 Creatinine 0.3 L 0.3 L Estim Creat Clear Calc 148.6 148.6 eGFR > 60 > 60 BUN/Creatinine Ratio 30 H 37 H Glucose 196 H 161 H Calculated Osmolality 279 276 Calcium 8.8 9.2 Corrected Calcium 9.3 9.7 Phosphorus 2.3 L 1.1 L Magnesium 2.2 Total Bilirubin 1.0 AST 61 H ALT 66 H Alkaline Phosphatase 214 H D Total Protein 6.0 Albumin 3.4 D 3.4 Globulin 2.6 Albumin/Globulin Ratio 1.3 Impressions Impression: # Status post subtotal colectomy for perforated colon along with en bloc resection of the small bowel which also had perforations Recovering postoperatively # Hypokalemia # Somewhat confused but improving mental status # Leukocytosis Continue current management ABG Interpretation ABG results: 01/12/25 01/12/25 01/12/25 02:43 04:40 07:51 ABG pH 7.51 H 7.39 D 7.40 ABG pCO2 29 L 41 D 40 ABG pO2 235 H 145 H D 152 H ABG HCO3 23 25 25 ABG O2 Saturation 100 H 99 H 99 H ABG Base Excess 0 0 0 VBG pH VBG pCO2 VBG pO2 VBG Base Excess 01/13/25 01/15/25 04:17 11:51 ABG pH 7.32 L ABG pCO2 43 ABG pO2 137 H ABG HCO3 22 ABG O2 Saturation 99 H ABG Base Excess -4 L VBG pH 7.65 VBG pCO2 37 VBG pO2 75 H VBG Base Excess 18 H Assessment & Plan A&P Narrative Pneumoperitoneum most likely perforated viscus and most likely culprit in this case is either colonic or gastric because of the steroids on board Plan N.p.o. NG to intermittent suction IV Zosyn IV Solu-Medrol 40 mg every 12 Surgical consultation Will follow patient most likely will need exploratory laparotomy tonight for further evaluation and management Time Spent With Patient Time: Total time spent is greater than 50% in coordination of care (as documented) at patient's floor/unit and/or counseling patient:
[2025-01-17] MEDS: THIAMINE INJ 100 MG/ML VIAL 2 ML IV (12:33)
--- NOTE | 2025-01-17 13:59 | ESPR_ITS ---
Subjective Subjective Interval history: asked to see about empiric abx for perf and IBD. Exam Vital Signs Temp Pulse Resp BP Pulse Ox O2 Del Method O2 Flow Rate 96.9 F 120 H 27 H 110/84 96 Room Air 2 01/17/25 11:48 01/17/25 11:48 01/17/25 11:48 01/17/25 11:48 01/17/25 11:48 01/17/25 11:48 01/14/25 16:00 FiO2 30 01/14/25 08:00 Narrative Exam benign abd. family concerned for rapid release, but she seemed better per notes last time Objective - Internal Medicine Labs 01/17/25 04:40 01/17/25 04:40 Labs: Laboratory Results - last 24 hr 01/11/25 01/16/25 01/17/25 17:55 13:38 04:40 WBC 23.2 H D RBC 4.32 Hgb 12.7 Hct 37.5 MCV 87 MCH 29.4 MCHC 33.9 RDW Std Deviation 51.8 H Plt Count 136 L Neut % (Auto) 86 H Lymph % (Auto) 7 L [place] % (Auto) 2 Eos % (Auto) 0 Baso % (Auto) 1 Neut # (Auto) 19.9 H Lymph # (Auto) 1.5 [place] # (Auto) 0.4 Eos # (Auto) 0.0 Baso # (Auto) 0.1 Immature Gran # (Auto) 1.16 H Absolute Nucleated RBC 0.00 Immature Gran % 5 H Nucleated RBC % 0 Sodium 138 137 Potassium 3.4 2.6 L* D Chloride 103 102 Carbon Dioxide 22.6 22.9 Anion Gap 12 12 BUN 9 11 Creatinine 0.3 L 0.3 L Estim Creat Clear Calc 148.6 148.6 eGFR > 60 > 60 BUN/Creatinine Ratio 30 H 37 H Glucose 196 H 161 H Calculated Osmolality 279 276 Calcium 8.8 9.2 Corrected Calcium 9.3 9.7 Phosphorus 2.3 L 1.1 L Magnesium 2.2 Total Bilirubin 1.0 AST 61 H ALT 66 H Alkaline Phosphatase 214 H D Total Protein 6.0 Albumin 3.4 D 3.4 Globulin 2.6 Albumin/Globulin Ratio 1.3 Blood Type O Positive Antibody Screen NEGATIVE Crossmatch See Detail Blood Bank Wristband ID Yes Blood Bank Comment FFP Ready ABG Interpretation ABG results: 01/12/25 01/12/25 01/12/25 02:43 04:40 07:51 ABG pH 7.51 H 7.39 D 7.40 ABG pCO2 29 L 41 D 40 ABG pO2 235 H 145 H D 152 H ABG HCO3 23 25 25 ABG O2 Saturation 100 H 99 H 99 H ABG Base Excess 0 0 0 VBG pH VBG pCO2 VBG pO2 VBG Base Excess 01/13/25 01/15/25 04:17 11:51 ABG pH 7.32 L ABG pCO2 43 ABG pO2 137 H ABG HCO3 22 ABG O2 Saturation 99 H ABG Base Excess -4 L VBG pH 7.65 VBG pCO2 37 VBG pO2 75 H VBG Base Excess 18 H Assessment & Plan A&P Narrative cx neg. on zosyn for 3-4d post op or so pt appears to remain npo. changed to iv unasyn. can go with po augmentin if able to take enterally, Time Spent With Patient Time: Total time spent is greater than 50% in coordination of care (as documented) at patient's floor/unit and/or counseling patient:
--- NOTE | 2025-01-17 14:07 | ESPR_ITS ---
Documentation for date of: 01/17/25 Subjective Subjective Narrative: Patient is seen and examined. She is resting comfortably, currently pain is controlled with [employer]. She denies nausea or vomiting. She has liquid in her ileostomy bag Exam Vital Signs Temp Pulse Resp BP Pulse Ox O2 Del Method O2 Flow Rate 96.9 F 120 H 27 H 110/84 96 Room Air 2 01/17/25 11:48 01/17/25 11:48 01/17/25 11:48 01/17/25 11:48 01/17/25 11:48 01/17/25 11:48 01/14/25 16:00 FiO2 30 01/14/25 08:00 Constitutional Constitutional: no acute distress Routine Abdominal Exam Abdominal: Present soft, normoactive bowel sounds, tenderness (Olena-incisional tenderness. 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 DC Pacheco catheter and increase ambulation Procedures Procedures Exploratory laparotomy, small bowel anastomosis with end ileostomy Cholecystectomy Abdominal washout and closure
--- NOTE | 2025-01-17 14:53 | ESCONSULT_ITS ---
<Statement entered by Cezar Cash MD - 01/17/25 17:39> pt seen with resident. all findings confirmed. resident knew pt from the prior admit too HPI Data of Consult Requesting Physician: Maxime Perez MD Admitting Provider: Tyrell Pang MD Attending Provider: Maxime Perez MD Primary Care Provider: Marcia Bartlett([facility]), THU Consult Narrative Reason for consult: Antibiotics selection s/p bowel perf post op sx day 3 History of present illness: This patient is a 59-year-old female with past medical history of IBD/ulcerative colitis was admitted on 01/11 with chief complaint of worsening abdominal pain. Patient was recently discharged on 12/21/2024 after management of ulcerative colitis flare. Patient was sent on appropriate IBD management as per GI specialist. During this admission, patient was found to have pneumoperitoneum secondary to small bowel perforation. Initial vitals showed hypotension, tachycardia. Patient was afebrile and saturating well on room air. Initial white count was normal. Hemoglobin was around 7.8. CT abdomen was consistent with pneumoperitoneum droplets adjacent to stomach with diffuse nonspecific colitis. Chest x-ray showed atelectasis left base. She was managed with 1 L bolus, IV Zosyn and Flagyl. General surgery and GI specialist was consulted. Patient underwent explorative laparotomy undergoing subtotal colectomy with en bloc partial small bowel resection performed by general surgery on 01/12. Patient is POD 5 s/p subtotal colectomy with en-bloc partial small bowel resection and POD 3 s/p Re-exploration, SB anastomosis, cholecystectomy and end ileostomy. Findings were consistent with multiple areas of large bowel perforation with feculent peritonitis. Multiple areas of small bowel perforation and areas of coloenteric fistulous. Postoperatively, patient was managed in ICU as she remained critically ill and mechanically ventilated. Patient was managed with IV antibiotics including Zosyn, vancomycin and fluconazole for broad-spectrum coverage for abdominal infection and aspiration pneumonia. Patient was de- escalated to Zosyn only. Patient was downgraded to medical floors on 01/15. Patient was received with NG tube on TPN and was having adequate mentation urine output. Per surgery recommendation patient was on strict bowel rest. GI recommended to continue IV Solu-Medrol 30 twice daily and mesalamine 400 mg 4 times daily once off n.p.o. PMH: Ulcerative colitis PSH: Denies any surgeries before SH: Former smoker quit 2 to 3 years ago. Denies drinking alcohol. Allergies: Ciprofloxacin causes GI upset, levofloxacin causes rash and ibuprofen causes GI upset FH: Denies any pertinent family history 01/17/2025: ID team was consulted for antibiotics selection. Patient was seen and examined at the bedside. Patient has been tolerating ice chips and is on Dilaudid pump for pain control. Surgery plan to remove the NG tube today. Currently on TPN. Patient has passed small amount of stool yesterday per pt sister on bedside. She was complaining of some sore throat. She was complaining of abdominal tenderness. Patient reported that she had 30 pound weight loss in the last 6 months with decreased appetite. --> Recommendations are to discontinue Zosyn as patient got coverage for 6 days and de-escalate to Unasyn for 4 more days to complete course. Continue pain management and therapy for IBD. Wean off TPN as tolerated and replete electrolytes given concern for refeeding syndrome. Agreeable to surgeon recommendations to remove NG tube today. White count monitoring is unprotective of infection as patient is also on steroids. However blood cultures are negative therefore safe to de-escalate antibiotics at this point. Rest of the management as per primary care team. cc:: cc: Maxime Perez MD Review of Systems Review of Systems Systems Reviewed: All systems reviewed, normal except as documented Past Medical History Surgical History OTHER SURGICAL HX: Back surgery Social History SMOKING STATUS: Former smoker SUBSTANCE USE: does not use ALCOHOL: Former Exam Vital Signs Temp Pulse Resp BP Pulse Ox O2 Del Method O2 Flow Rate 96.9 F 120 H 27 H 110/84 96 Room Air 2 01/17/25 11:48 01/17/25 11:48 01/17/25 11:48 01/17/25 11:48 01/17/25 11:48 01/17/25 11:48 01/14/25 16:00 FiO2 30 01/14/25 08:00 Narrative Exam GENERAL APPEARANCE: AAOx3, appears to be weak and frail in no acute distress. HEENT: NC, AT. MMM. EOMI, clear conjunctiva, oropharynx clear.NG tube present NECK: Supple without lymphadenopathy. No stiffness or restricted ROM. HEART: sinus tacy with regular rhythm, normal S1/S2, no m/r/g LUNGS: CTAB, moving air well. Mild Rhonchi heard on ausc ABDOMEN: Abdomen is soft ,mildly tender and slightly distended. Incision is clean, dry and intact. No significant bowel sounds today. Ileostomy is pink, patent and present without any activity BACK: No CVAT, no obvious deformity. EXTREMITIES: Without cyanosis, clubbing or edema.cold peripheries NEUROLOGICAL: Grossly nonfocal. Alert and oriented, moving all 4 extremities. CN not formally tested but appear grossly intact. Skin: Warm and dry without any rash. Psych: Appropriate mood and affect Results Labs 01/17/25 04:40 01/17/25 04:40 Labs: Short CBC 01/17/25 Range/Units 04:40 WBC 23.2 H D (3.6-11.0) Thou/mm3 Hgb 12.7 (12.0-16.0) g/dL Hct 37.5 (36.0-46.0) % Plt Count 136 L (140-440) Thou/mm3 BMP 01/17/25 04:40 Sodium 137 Potassium 2.6 L* D Chloride 102 Carbon Dioxide 22.9 BUN 11 Creatinine 0.3 L Glucose 161 H Calcium 9.2 Liver Function 01/17/25 Range/Units 04:40 Total Bilirubin 1.0 (0.3-1.2) mg/dL AST 61 H (0-34) U/L ALT 66 H (10-49) U/L Alkaline Phosphatase 214 H D (46-116) U/L Albumin 3.4 (3.4-4.8) gm/dL ABG Interpretation ABG results: 01/12/25 01/12/25 01/12/25 02:43 04:40 07:51 ABG pH 7.51 H 7.39 D 7.40 ABG pCO2 29 L 41 D 40 ABG pO2 235 H 145 H D 152 H ABG HCO3 23 25 25 ABG O2 Saturation 100 H 99 H 99 H ABG Base Excess 0 0 0 VBG pH VBG pCO2 VBG pO2 VBG Base Excess 01/13/25 01/15/25 04:17 11:51 ABG pH 7.32 L ABG pCO2 43 ABG pO2 137 H ABG HCO3 22 ABG O2 Saturation 99 H ABG Base Excess -4 L VBG pH 7.65 VBG pCO2 37 VBG pO2 75 H VBG Base Excess 18 H Quality Measures Quality Measures VTE prophylaxis Medications Home Medications and Allergies Home Medications ?Medication ?Instructions ?Recorded ?Confirmed ?Type ursodiol 250 mg tablet 250 mg PO TID ##90 02/17/17 01/11/25 History loperamide 2 mg capsule 2 mg PO Q6H PRN Diarrhea 01/11/25 History ascorbic acid (vitamin C) 500 mg 500 mg PO BID 5 01/11/25 History tablet (Vitamin C) ferrous sulfate 325 mg (65 mg 325 mg PO DAILY 01/11/25 01/11/25 History iron) tablet folic acid 1 mg tablet 400 mcg PO QDAY 01/11/25 History mesalamine 500 mg capsule,extended 500 mg PO QID UC 01/11/25 History release prednisone 5 mg tablet 5 mg PO TID 01/11/25 5 History Allergies Allergy/AdvReac Type Severity Reaction Status Date / Time ciprofloxacin (From Cipro) Allergy Intermediate Gastrointestinal Verified 12/17/24 10:35 Upset levofloxacin Allergy Intermediate Rash Verified 12/17/24 10:35 ibuprofen AdvReac Intermediate Gastrointestinal Verified 12/17/24 10:35 Upset Visit Medications Albuterol/Ipratropium (Albuterol/Ipratropium (Duoneb) Rt Bambi 3 Ml Nebu) 3 ml INH Q4HRRT PRN PRN Reason: SHORTNESS OF BREATH OR WHEEZE Stop: 02/15/25 14:59 Last Admin: 01/16/25 12:04 Dose: 3 ml Dextrose (Dextrose 50%-Water Inj 50 Ml Syringe) 50 ml IV Q15MIN PRN PRN Reason: BG <50 OR BG <70 & pt unresponsive Stop: 02/12/25 06:34 Enoxaparin Sodium (Enoxaparin Sod Inj 40 Mg/0.4 Ml Syringe) 40 mg SC QDAY [facility] Stop: 01/30/25 08:59 Last Admin: 01/17/25 08:22 Dose: Not Given Glucagon (Glucagon Inj 1 Mg Vial) 1 mg IM Q15MIN PRN PRN Reason: BG <70, and no IV access Guaifenesin (Guaifenesin Syrup 200 Mg/10 Ml Udc) 100 mg NG QID PRN; Protocol PRN Reason: COUGH Stop: 02/15/25 11:53 Hydromorphone HCl (Hydromorphone 1 Mg/Ml Digital Marketing Specialist Syringe 30ml) 0 mg HOROLOGIST UD [facility]; Protocol Stop: 01/20/25 12:59 Last Admin: 01/16/25 14:07 Dose: 30 mg Fat Emulsion Intravenous (Intralipid 20% Iv) 500 mls @ 32 mls/hr IV TUTHSA@1800 [facility] Stop: 02/12/25 17:59 Last Admin: 01/16/25 18:05 Dose: 32 mls/hr Potassium Chloride 40 meq/Thiamine HCl 100 mg/Multivitamins/Minerals 10 ml/Amino Acids/Electrolytes 2,031 mls @ 30 mls/hr IV .Q24H ONE Stop: 01/18/25 03:34 Ampicillin Sodium/Sulbactam (Sodium 3 gm/ Sodium Chloride) 100 mls @ 200 mls/hr IV Q6HR [facility] Stop: 01/24/25 17:59 Insulin Glargine (Insulin Glargine (Lantus) 5 Unit/0.05 Ml (Per 5 Units)) 10 unit SC [facility] Stop: 02/14/25 20:59 Last Admin: 01/16/25 20:31 Dose: 10 unit Insulin Human Lispro (Insulin Lispro (Admelog) 1 Unit/0.01 Ml Unit) 0 unit SC Q6HR [facility]; Protocol Stop: 02/12/25 06:44 Last Admin: 01/17/25 12:38 Dose: Not Given Methylprednisolone Sodium Succinate (Methylprednisolone Sod Succ 40 Mg Vial) 10 mg IV BID [facility] Stop: 01/24/25 20:59 Pantoprazole Sodium (Pantoprazole Inj 40 Mg Vial) 40 mg IVP QDAY [facility] Stop: 02/11/25 08:59 Last Admin: 01/17/25 08:19 Dose: 40 mg Thiamine HCl (Thiamine Inj 100 Mg/Ml Vial 2 Ml) 100 mg IV QDAY [facility] Stop: 02/16/25 10:59 Last Admin: 01/17/25 12:33 Dose: 100 mg Discontinued Medications Hydrocodone Bitart/Acetaminophen (Hydrocodone/Apap 5/325 Tablet) 1 tab PO Q6HR PRN PRN Reason: Pain 4-6 Stop: 01/19/25 16:40 Albuterol/Ipratropium (Albuterol/Ipratropium (Duoneb) Rt Bambi 3 Ml Nebu) 3 ml INH Q4HRRT [facility] Stop: 01/17/25 23:00 Dextrose (Dextrose 50%-Water Inj 50 Ml Syringe) 25 ml IV Q15MIN PRN PRN Reason: BG 50-70 responsive npo pt Stop: 02/12/25 06:34 Furosemide (Furosemide Inj 10 Mg/Ml Vial 2 Ml) 20 mg IVP X1 ONE Stop: 01/13/25 12:29 Last Admin: 01/13/25 15:29 Dose: 20 mg Heparin Sodium (Porcine) (Heparin Sod Inj 5000 Unit/Ml Vial) 5,000 unit SC Q12HR [facility] Stop: 01/27/25 20:59 Last Admin: 01/15/25 21:49 Dose: 5,000 unit Hydrocortisone Sodium Succinate (Hydrocortisone Sod Succ Inj 100 Mg Vial) 100 mg IV Q8HR [facility] Stop: 02/12/25 14:59 Last Admin: 01/14/25 05:54 Dose: 100 mg Hydrocortisone Sodium Succinate (Hydrocortisone Sod Succ Inj 100 Mg Vial) 100 mg IV BID [facility] Stop: 02/13/25 12:59 Last Admin: 01/14/25 13:34 Dose: 100 mg Hydrocortisone Sodium Succinate (Hydrocortisone Sod Succ Inj 100 Mg Vial) 50 mg IV BID [facility] Stop: 02/14/25 08:59 Hydrocortisone Sodium Succinate (Hydrocortisone Sod Succ Inj 100 Mg Vial) 100 mg IV BID [facility] Stop: 02/14/25 08:59 Hydrocortisone Sodium Succinate (Hydrocortisone Sod Succ Inj 100 Mg Vial) 75 mg IV BID [facility] Stop: 02/14/25 08:59 Hydrocortisone Sodium Succinate (Hydrocortisone Sod Succ Inj 100 Mg Vial) 50 mg IV Q8HR [facility] Stop: 02/14/25 08:34 Hydrocortisone Sodium Succinate (Hydrocortisone Sod Succ Inj 100 Mg Vial) 50 mg IV BID [facility] Stop: 02/14/25 11:14 Last Admin: 01/15/25 11:35 Dose: 50 mg Hydromorphone HCl (Hydromorphone Inj 2 Mg/Ml Vial) 1 mg IVP Q4HR PRN PRN Reason: PAIN Stop: 01/19/25 13:19 Hydromorphone HCl (Hydromorphone Inj 2 Mg/Ml Vial) 0.5 mg IVP Q4HR PRN PRN Reason: PAIN SCALE 7-10 (Severe Stop: 01/19/25 13:41 Last Admin: 01/15/25 08:56 Dose: 0.5 mg Hydromorphone HCl (Hydromorphone Inj 2 Mg/Ml Vial) 1 mg IVP X1 ONE Stop: 01/15/25 10:43 Last Admin: 01/15/25 11:04 Dose: 1 mg Hydromorphone HCl (Hydromorphone Inj 2 Mg/Ml Vial) 1 mg IVP Q3H PRN PRN Reason: PAIN Stop: 01/20/25 11:25 Sodium Chloride (Ns) 1,000 mls @ 999 mls/hr IV .Q1H1M ONE Stop: 01/11/25 17:50 Last Infusion: 01/11/25 19:17 Dose: Infused Piperacillin/Tazobactam/Dextrose (Zosyn) 3.375 gm in 50 mls @ 100 mls/hr IV X1 ONE Stop: 01/11/25 21:29 Last Admin: 01/11/25 21:11 Dose: Not Given Potassium Chloride (Kcl Ivpb) 10 meq in 100 mls @ 100 mls/hr IV X1 ONE Stop: 01/11/25 22:02 Last Admin: 01/14/25 21:26 Dose: Not Given Metronidazole (Flagyl 500 Mg Iv) 500 mg in 100 mls @ 200 mls/hr IV Q8HR [facility] Stop: 01/18/25 21:07 Last Infusion: 01/12/25 09:40 Dose: Infused Piperacillin/Tazobactam/Dextrose (Zosyn) 3.375 gm in 50 mls @ 12.5 mls/hr IV Q8HR [facility] Stop: 01/19/25 05:59 Piperacillin/Tazobactam/Dextrose (Zosyn) 3.375 gm in 50 mls @ 100 mls/hr IV X1 ONE Stop: 01/11/25 21:44 Last Infusion: 01/12/25 09:40 Dose: Infused Piperacillin/Tazobactam/Dextrose (Zosyn) 100 mls @ 25 mls/hr IV Q8HR [facility] Stop: 01/12/25 12:00 Last Infusion: 01/12/25 10:36 Dose: Infused Potassium Chloride (Kcl Ivpb) 10 meq in 100 mls @ 100 mls/hr IV X1 ONE Stop: 01/12/25 00:43 Last Admin: 01/14/25 21:29 Dose: Not Given Propofol (Diprivan Ivpb) 1,000 mg in 100 mls @ 2.177 mls/hr IV .Q24H PRN; Protocol PRN Reason: PER PROTOCOL Stop: 02/11/25 01:04 Last Titration: 01/14/25 10:00 Dose: Infused Fentanyl Citrate (Sublimaze Inj 2,500 Mcg/250 Ml Bag) 2,500 mcg in 250 mls @ 2.5 mls/hr IV .Q24H PRN; Protocol PRN Reason: PER PROTOCOL Stop: 01/17/25 01:05 Last Titration: 01/14/25 11:00 Dose: 0 mcg/hr, 0 mls/hr Lactated Ringer's (Lactated Ringers) 1,000 mls @ 75 mls/hr IV .[id number] ONE Stop: 01/12/25 15:01 Last Infusion: 01/12/25 16:22 Dose: Infused Potassium Chloride (Kcl Ivpb) 10 meq in 100 mls @ 100 mls/hr IV Q1H [facility] Stop: 01/12/25 06:02 Last Infusion: 01/12/25 09:40 Dose: Infused Magnesium Sulfate (Magnesium Sulfate Ivpb) 4 gm in 50 mls @ 12.5 mls/hr IV X1 ONE Stop: 01/12/25 06:03 Last Infusion: 01/12/25 09:40 Dose: Infused Norepinephrine Bitartrate (Levophed In Ns 16mg/250ml) 16 mg in 250 mls @ 3.402 mls/hr IV .Q24H PRN; Protocol PRN Reason: PER PROTOCOL Stop: 02/11/25 03:28 Lactated Ringer's (Lactated Ringers) 1,000 mls @ 999 mls/hr IV .Q1H1M ONE Stop: 01/12/25 04:31 Last Infusion: 01/12/25 09:39 Dose: Infused Vancomycin HCl 2,000 mg/ (Sodium Chloride) 500 mls @ 150 mls/hr IV X1 ONE Stop: 01/12/25 07:04 Last Infusion: 01/12/25 09:39 Dose: Infused Norepinephrine/Dextrose (Levophed In D5w 8mg/250ml) 8 mg in 250 mls @ 6.804 mls/hr IV .Q24H PRN; Protocol PRN Reason: PER PROTOCOL Stop: 02/11/25 05:02 Last Titration: 01/13/25 22:23 Dose: 0 mcg/kg/min, 0 mls/hr Vasopressin/Sodium Chloride (Vasostrict/Ns Ivpb) 20 unit in 100 mls @ 9 mls/hr IV .Q11H7M PRN; Protocol PRN Reason: PER PROTOCOL Stop: 02/11/25 05:18 Last Titration: 01/14/25 02:00 Dose: 0 unit/min, 0 mls/hr Lactated Ringer's (Lactated Ringers) 500 mls @ 999 mls/hr IV .Q31M ONE Stop: 01/12/25 05:49 Last Infusion: 01/12/25 09:39 Dose: Infused Potassium Chloride (Kcl Ivpb) 20 meq in 100 mls @ 50 mls/hr IV Q2H [facility] Stop: 01/12/25 10:26 Last Infusion: 01/12/25 11:45 Dose: Infused Piperacillin Sod/Tazobactam (Sod 4.5 gm/ Sodium Chloride) 100 mls @ 25 mls/hr IV Q8HR [facility] Stop: 01/18/25 23:23 Last Admin: 01/16/25 05:17 Dose: 25 mls/hr Vancomycin HCl/Dextrose (Vancomycin/D5w 1,250 Mg Ivpb) 250 mls @ 120 mls/hr IV BID@1000,2200 [facility]; Protocol Stop: 01/19/25 21:59 Last Infusion: 01/13/25 11:00 Dose: Infused Sodium Phosphate 45 mmol/Multivitamins/Minerals 10 ml/Amino Acids 2,025 mls @ 30 mls/hr IV QDAY@1800 [facility] Stop: 01/13/25 17:59 Last Infusion: 01/13/25 17:48 Dose: 0 mls/hr Fluconazole (Diflucan/Ns Ivpb) 400 mg in 200 mls @ 100 mls/hr IV QDAY@2100 [facility] Stop: 01/19/25 18:38 Last Admin: 01/15/25 21:50 Dose: 100 mls/hr Vancomycin/Sodium Chloride (Vancomycin/Ns 1 Gm Ivpb) 200 mls @ 120 mls/hr IV BID@1000,2200 [facility]; Protocol Stop: 01/20/25 09:59 Last Infusion: 01/14/25 09:00 Dose: Infused Sodium Phosphate 15 mmol/Multivitamins/Minerals 10 ml/Amino Acids/Electrolytes 1,015 mls @ 60 mls/hr IV .[id number] [facility] Stop: 01/14/25 10:54 Last Admin: 01/13/25 17:48 Dose: 60 mls/hr Lactated Ringer's (Lactated Ringers) 500 mls @ 999 mls/hr IV .Q31M ONE Stop: 01/13/25 11:00 Last Infusion: 01/13/25 11:00 Dose: 0 mls/hr Amino Acids/Electrolytes (Clinimix E 5/20) 1,000 mls @ 60 mls/hr IV .[id number] [facility] Stop: 01/15/25 03:34 Last Admin: 01/14/25 13:32 Dose: 60 mls/hr Magnesium Sulfate (Magnesium Sulfate Ivpb) 4 gm in 50 mls @ 12.5 mls/hr IV X1 ONE Stop: 01/14/25 09:26 Last Infusion: 01/14/25 10:00 Dose: Infused Potassium Chloride (Kcl Ivpb) 20 meq in 100 mls @ 50 mls/hr IV Q2H [facility] Stop: 01/14/25 09:26 Last Infusion: 01/14/25 10:00 Dose: 0 mls/hr Potassium Phosphate 22.5 mmol/ (Sodium Chloride) 507.5 mls @ 82.778 mls/hr IV X1 ONE Stop: 01/14/25 12:37 Last Infusion: 01/14/25 10:00 Dose: 0 mls/hr Vancomycin/Sodium Chloride (Vancomycin/Ns 1 Gm Ivpb) 200 mls @ 120 mls/hr IV Q8HR [facility]; Protocol Stop: 01/21/25 07:29 Last Admin: 01/15/25 06:33 Dose: Not Given Potassium Phosphate 45 mmol/Multivitamins/Minerals 10 ml/Amino Acids 2,025 mls @ 60 mls/hr IV .Q24H ONE Stop: 01/16/25 03:34 Last Admin: 01/15/25 03:27 Dose: 60 mls/hr Potassium Chloride (Kcl Ivpb) 20 meq in 100 mls @ 50 mls/hr IV Q2H [facility] Stop: 01/14/25 19:01 Last Infusion: 01/14/25 20:00 Dose: Infused Acetaminophen (Ofirmev Inj) 1,000 mg in 100 mls @ 250 mls/hr IV Q6HR PRN PRN Reason: PAIN SCALE 1-4 (mild Acetaminophen (Ofirmev Inj) 1,000 mg in 100 mls @ 250 mls/hr IV Q6HR PRN PRN Reason: PAIN SCALE 1-3 (mild Stop: 01/15/25 16:41 Potassium Chloride (Kcl Ivpb) 20 meq in 100 mls @ 50 mls/hr IV Q2H [facility] Stop: 01/15/25 03:09 Last Infusion: 01/15/25 03:22 Dose: Infused Potassium Chloride (Kcl Ivpb) 20 meq in 100 mls @ 50 mls/hr IV Q2H [facility] Stop: 01/15/25 05:44 Magnesium Sulfate (Magnesium Sulfate Ivpb) 2 gm in 50 mls @ 25 mls/hr IV X1 ONE Stop: 01/15/25 02:26 Last Infusion: 01/15/25 03:21 Dose: Infused Potassium Chloride (Kcl Ivpb) 20 meq in 100 mls @ 50 mls/hr IV Q2H [facility] Stop: 01/15/25 07:29 Last Admin: 01/15/25 05:36 Dose: 50 mls/hr Potassium Chloride (Kcl Ivpb) 20 meq in 100 mls @ 50 mls/hr IV Q2H [facility] Stop: 01/15/25 11:24 Last Admin: 01/15/25 11:14 Dose: 50 mls/hr Vancomycin HCl 750 mg/ Sodium (Chloride) 250 mls @ 200 mls/hr IV Q8HR [facility]; Protocol Stop: 01/22/25 13:59 Last Admin: 01/15/25 14:46 Dose: 200 mls/hr Potassium Chloride (Kcl Ivpb) 20 meq in 100 mls @ 50 mls/hr IV Q2H [facility] Stop: 01/15/25 15:59 Last Admin: 01/15/25 17:18 Dose: Not Given Calcium Gluconate/Sodium Chloride (Calcium Gluc/Ns 1000mg Ivpb) 1,000 mg in 50 mls @ 50 mls/hr IV X1 ONE Stop: 01/15/25 11:40 Last Admin: 01/15/25 11:13 Dose: 50 mls/hr Acetazolamide Sodium 500 mg/ (Sodium Chloride) 50 mls @ 100 mls/hr IV DAILY [facility] Stop: 02/14/25 11:29 Last Admin: 01/15/25 17:18 Dose: Not Given Potassium Phosphate (Pot Phos 15 Mmol In Ns 250 Ml) 15 mmol in 250 mls @ 62.5 mls/hr IV Q4H [facility] Stop: 01/15/25 19:25 Last Admin: 01/15/25 17:00 Dose: 62.5 mls/hr Potassium Chloride (Kcl Ivpb) 20 meq in 100 mls @ 50 mls/hr IV Q2H [facility] Stop: 01/15/25 15:25 Last Admin: 01/15/25 21:52 Dose: Not Given Acetazolamide Sodium 500 mg/ (Sodium Chloride) 50 mls @ 100 mls/hr IV DAILY [facility] Stop: 02/14/25 11:44 Last Admin: 01/16/25 09:52 Dose: 100 mls/hr Magnesium Sulfate (Magnesium Sulfate Ivpb) 2 gm in 50 mls @ 25 mls/hr IV X1 ONE Stop: 01/15/25 15:42 Last Admin: 01/15/25 14:45 Dose: 25 mls/hr Sodium Chloride (Ns) 250 mls @ 999 mls/hr IV .Q16M ONE Stop: 01/15/25 15:14 Last Admin: 01/15/25 17:13 Dose: 999 mls/hr Potassium Phosphate 30 mmol/Potassium Chloride 40 meq/Magnesium Sulfate 2 gm/Thiamine HCl 100 mg/Multivitamins/Minerals 10 ml/Amino Acids 2,045 mls @ 60 mls/hr IV .Q24H ONE Stop: 01/17/25 03:34 Last Admin: 01/16/25 03:46 Dose: Not Given Potassium Chloride (Kcl Ivpb) 10 meq in 100 mls @ 100 mls/hr IV Q1H [facility] Stop: 01/16/25 03:39 Last Admin: 01/16/25 07:14 Dose: 100 mls/hr Potassium Phosphate 30 mmol/Potassium Chloride 40 meq/Magnesium Sulfate 2 gm/Thiamine HCl 100 mg/Multivitamins/Minerals 10 ml/Amino Acids 2,045 mls @ 60 mls/hr IV .Q24H ONE Stop: 01/17/25 04:14 Last Infusion: 01/17/25 03:25 Dose: 60 mls/hr Piperacillin Sod/Tazobactam (Sod 3.375 gm/ Dextrose) 100 mls @ 200 mls/hr IV Q6HR [facility] Stop: 01/23/25 11:59 Last Admin: 01/17/25 12:33 Dose: 200 mls/hr Potassium Phosphate 22.5 mmol/ (Sodium Chloride) 507.5 mls @ 84.583 mls/hr IV X1 ONE Stop: 01/16/25 14:23 Last Admin: 01/16/25 09:51 Dose: 84.583 mls/hr Albumin Human (Albuminar-25 Ivpb) 25 gm in 100 mls @ 100 mls/hr IV X1 ONE Stop: 01/16/25 09:26 Last Admin: 01/16/25 09:52 Dose: 100 mls/hr Potassium Chloride 40 meq/Thiamine HCl 100 mg/Multivitamins/Minerals 10 ml/Amino Acids/Electrolytes 2,031 mls @ 60 mls/hr IV .Q24H ONE Stop: 01/18/25 03:34 Last Infusion: 01/17/25 12:55 Dose: 30 mls/hr Potassium Chloride (Kcl Ivpb) 10 meq in 100 mls @ 100 mls/hr IV Q1H [facility] Stop: 01/17/25 12:32 Last Admin: 01/17/25 12:35 Dose: 25 mls/hr Potassium Phosphate 22.5 mmol/ (Sodium Chloride) 507.5 mls @ 82.778 mls/hr IV X1 ONE Stop: 01/17/25 13:46 Last Admin: 01/17/25 08:44 Dose: 82.778 mls/hr Insulin Glargine (Insulin Glargine (Lantus) 5 Unit/0.05 Ml (Per 5 Units)) 5 unit SC X1 ONE Stop: 01/13/25 10:13 Last Admin: 01/13/25 10:44 Dose: 5 unit Insulin Glargine (Insulin Glargine (Lantus) 5 Unit/0.05 Ml (Per 5 Units)) 5 unit SC X1 ONE Stop: 01/14/25 10:16 Last Admin: 01/14/25 14:22 Dose: 5 unit Lorazepam (Lorazepam 2 Mg/Ml Vial) 0.25 mg IVP X1 ONE Stop: 01/16/25 19:28 Last Admin: 01/16/25 19:38 Dose: 0.25 mg Methylprednisolone Sodium Succinate (Methylprednisolone Sod Succ 40 Mg Vial) 30 mg IV BID [facility] Stop: 01/22/25 20:59 Last Admin: 01/16/25 09:53 Dose: 30 mg Methylprednisolone Sodium Succinate (Methylprednisolone Sod Succ 40 Mg Vial) 20 mg IV BID [facility] Stop: 01/23/25 20:59 Last Admin: 01/17/25 08:19 Dose: 20 mg Midazolam HCl (Midazolam Inj 1 Mg/Ml Vial 2 Ml) 1 mg IV X1 ONE Stop: 01/15/25 13:20 Last Admin: 01/15/25 13:26 Dose: 1 mg Midazolam HCl (Midazolam Inj 1 Mg/Ml Vial 2 Ml) 1 mg IV X1 ONE Stop: 01/16/25 21:27 Last Admin: 01/16/25 21:36 Dose: 1 mg Pharmacy Consult (Vancomycin Pharmacy To Dose 1 Each Each) 1 each IV QDAY PRN PRN Reason: PROTOCOL Stop: 02/11/25 08:59 Potassium Chloride (Potassium Chloride 20 Meq Tabcr) 40 meq PO X1 ONE Stop: 01/11/25 20:30 Last Admin: 01/11/25 21:11 Dose: Not Given Potassium Chloride (Potassium Chloride 10% 20 Meq/15 Ml Udc) 40 meq GT X1 ONE Stop: 01/14/25 07:18 Last Admin: 01/14/25 07:33 Dose: 40 meq Potassium Chloride (Potassium Chloride 10% 20 Meq/15 Ml Udc) 20 meq GT X1 ONE Stop: 01/14/25 07:18 Last Admin: 01/14/25 07:33 Dose: 20 meq Thiamine HCl (Thiamine 100 Mg Tablet) 100 mg PO QDAY [place] Stop: 01/20/25 10:14 Last Admin: 01/15/25 17:17 Dose: Not Given Thiamine HCl (Thiamine Inj 100 Mg/Ml Vial 2 Ml) 100 mg IV X1 ONE Stop: 01/15/25 11:46 Last Admin: 01/15/25 11:43 Dose: 100 mg Assessment & Plan Plan Ms Sophia Smith is a 59-year-old female with past medical history of inflammatory bowel disease/ulcerative colitis on chronic steroids that was recently discharged on 12/21/2024 for IBS flareup and admitted on 01/11 for pneumoperitoneum requiring emergent ex-lap. Found to have multiple areas of small and large bowel perforation with feculent peritonitis as well as coloenteric fistulas. Underwent subtotal colectomy on 01/11 and subsequently admitted to the ICU for further management. patient was downgraded to medical floors on 01/15 for further management. ID team consulted for antibiotics Post op day 3 reexploration. #Small and large bowel perforation with fistula status post subtotal colectomy #POD#5 s/p subtotal colectomy with en-bloc partial small bowel resection #POD#3 s/p Re-exploration, SB anastomosis, cholecystectomy and end ileostomy #Severe peritonitis #History of IBD/ulcerative colitis, severe #Pneumoperitoneum #Distributive shock, resolved ? 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 CT abdomen on admission showed pneumoperitoneum and patient was taken to the OR on 01/14. Was found to have multiple bowel perforations small and large intestine causing feculent peritonitis. ? 01/14: Small bowel anastomosis with end ileostomy, cholecystectomy and abdominal washout with closure. ? Patient was managed with IV Zosyn, vancomycin and fluconazole. Plan: ? Discontinued IV Zosyn given blood cultures showing no growth and white count and predictive of infection given patient is on steroids for IBD ? De-escalate to Unasyn for 4 more days to complete antibiotic course ? Continue pain management with Dilaudid pump ? Replete electrolytes closely for concern of refeeding syndrome ? Continue IBD therapy with Solu-Medrol and restart mesalamine once patient is able to tolerate p.o. ? Surgery and GI following the case as well ? Daily labs ? Will follow-up with the patient on Wednesday #Dyspnea #Cough #Post surgery atelectasis #Reactive leukocytosis #Hyperglycemia #Normocytic anemia #Electrolyte abnormalities #Hypokalemia #Hypophosphatemia Rest of the management as per primary care team. Thank you very much for consulting ID specialist team. Plan of care was discussed with ID specialist, Dr Shailesh Mackenzie MD, PGY 2
--- NOTE | 2025-01-17 15:07 | ESPR_ITS ---
<Statement entered by Emile Katz MD - 01/17/25 18:18> Senior Resident Attestation: I supervised/discussed management plan with internal combustion engine inspector physician Dr. Hernandez, and was involved in the care of this patient. I personally saw and examined the patient and discussed the assessment and plan with the entire medicine team, including my attending. I agree with the assessment and plan as documented. Patient's care was discussed with attending physician, Dr. Perez. Emile Katz MD PGY-2. Documentation for date of: 01/17/25 Subjective Subjective Interval history: Patient seen at bedside. Overnight was said to have been anxious and received Ativan, patient became agitated and was given a one-time dose of Versed. At bedside today, she is calm and oriented, wants the restraints off. Nurse at bedside reports that although patient has not had a full bowel movements, she had a smear. She is currently still being controlled with pain provide NURSING INFORMATICS SPECIALIST that is being weaned off. Evaluated by surgery, NG tube has been discontinued and the patient will be started on clear liquid diet, to continue on TPN as well. ID recommendations-Zosyn was discontinued and de-escalated to Unasyn for 4 more days. Exam Vital Signs Temp Pulse Resp BP Pulse Ox O2 Del Method O2 Flow Rate 96.9 F 120 H 27 H 110/84 96 Room Air 2 01/17/25 11:48 01/17/25 11:48 01/17/25 11:48 01/17/25 11:48 01/17/25 11:48 01/17/25 11:48 01/14/25 16:00 FiO2 30 01/14/25 08:00 Narrative Exam GENERAL: AAOX3 NEURO: AUTOMATIC CASTING MACHINE OPERATOR grossly intact, moves extremities x4 HEENT: Moist mucosa. Eyes open, symmetrical, & clear. Central line in situ CARDIO: No chest pain on palpation. Heart RRR, no obvious murmurs PULM: No noted coughing/dyspnea. Lungs CTA B/L GI: Abdomen soft, nondistended, no pain on palpation. Incisional site clean, no discharge. Ileostomy site is pink, greenish stool. Normoactive bowel sounds URO/VIDEO PRODUCTION SPECIALIST:: No further abnormalities noted. SKIN/MSK/EXT: No wounds/rashes/edema/amputations, no pain on palpation. Pedal pulses present B/L Objective Labs 01/18/25 04:25 01/18/25 04:25 Labs: Laboratory Results - last 24 hr 01/11/25 01/17/25 17:55 04:40 WBC 23.2 H D RBC 4.32 Hgb 12.7 Hct 37.5 MCV 87 MCH 29.4 MCHC 33.9 RDW Std Deviation 51.8 H Plt Count 136 L Neut % (Auto) 86 H Lymph % (Auto) 7 L [place] % (Auto) 2 Eos % (Auto) 0 Baso % (Auto) 1 Neut # (Auto) 19.9 H Lymph # (Auto) 1.5 [place] # (Auto) 0.4 Eos # (Auto) 0.0 Baso # (Auto) 0.1 Immature Gran # (Auto) 1.16 H Absolute Nucleated RBC 0.00 Immature Gran % 5 H Nucleated RBC % 0 Sodium 137 Potassium 2.6 L* D Chloride 102 Carbon Dioxide 22.9 Anion Gap 12 BUN 11 Creatinine 0.3 L Estim Creat Clear Calc 148.6 eGFR > 60 BUN/Creatinine Ratio 37 H Glucose 161 H Calculated Osmolality 276 Calcium 9.2 Corrected Calcium 9.7 Phosphorus 1.1 L Magnesium 2.2 Total Bilirubin 1.0 AST 61 H ALT 66 H Alkaline Phosphatase 214 H D Total Protein 6.0 Albumin 3.4 Globulin 2.6 Albumin/Globulin Ratio 1.3 Blood Type O Positive Antibody Screen NEGATIVE Crossmatch See Detail Blood Bank Wristband ID Yes Blood Bank Comment FFP Ready ABG Interpretation ABG results: 01/12/25 01/12/25 01/12/25 02:43 04:40 07:51 ABG pH 7.51 H 7.39 D 7.40 ABG pCO2 29 L 41 D 40 ABG pO2 235 H 145 H D 152 H ABG HCO3 23 25 25 ABG O2 Saturation 100 H 99 H 99 H ABG Base Excess 0 0 0 VBG pH VBG pCO2 VBG pO2 VBG Base Excess 01/13/25 01/15/25 04:17 11:51 ABG pH 7.32 L ABG pCO2 43 ABG pO2 137 H ABG HCO3 22 ABG O2 Saturation 99 H ABG Base Excess -4 L VBG pH 7.65 VBG pCO2 37 VBG pO2 75 H VBG Base Excess 18 H Quality Measures Quality Measures VTE prophylaxis Assessment & Plan Assessment Current Active Medications: Generic Name Dose Route Start Last Admin Trade Name Freq PRN Reason Stop Dose Admin Albuterol/Ipratropium 3 ml 01/16/25 11:56 01/16/25 12:04 Albuterol/Ipratropium (Duoneb) Rt Bambi 3 Ml Nebu INH 02/15/25 14:59 3 ml Q4HRRT PRN Administration SHORTNESS OF BREATH OR WHEEZE Dextrose 50 ml 01/13/25 06:35 Dextrose 50%-Water Inj 50 Ml Syringe IV 02/12/25 06:34 Q15MIN PRN BG <50 OR BG <70 & pt unresponsive Enoxaparin Sodium 40 mg 01/16/25 09:00 01/17/25 08:22 Enoxaparin Sod Inj 40 Mg/0.4 Ml Syringe SC 01/30/25 08:59 Not Given QDAY CAMERON Glucagon 1 mg 01/13/25 06:35 Glucagon Inj 1 Mg Vial IM Q15MIN PRN BG <70, and no IV access Guaifenesin 100 mg 01/16/25 11:54 Guaifenesin Syrup 200 Mg/10 Ml Udc NG 02/15/25 11:53 QID PRN COUGH Protocol Hydromorphone HCl 0 mg 01/15/25 13:00 01/16/25 14:07 Hydromorphone 1 Mg/Ml Manager Psychology Syringe 30ml NURSING INFORMATICS SPECIALIST 01/20/25 12:59 30 mg UD CAMERON Administration Protocol Fat Emulsion Intravenous 500 mls @ 32 mls/hr 01/13/25 18:00 01/16/25 18:05 Intralipid 20% Iv IV 02/12/25 17:59 32 mls/hr [email or web address] CAMERON Administration Potassium Chloride 40 meq/ 2,031 mls @ 30 mls/hr 01/17/25 10:41 Thiamine HCl 100 mg/ IV 01/18/25 03:34 Multivitamins/Minerals 10 ml/ .Q24H ONE Amino Acids/Electrolytes Ampicillin Sodium/Sulbactam 100 mls @ 200 mls/hr 01/17/25 18:00 Sodium 3 gm/ Sodium Chloride IV 01/24/25 17:59 Q6HR [facility] Insulin Glargine 10 unit 01/15/25 21:00 01/16/25 20:31 Insulin Glargine (Lantus) 5 Unit/0.05 Ml (Per 5 Units) SC 02/14/25 20:59 10 unit HS CAMERON Administration Insulin Human Lispro 0 unit 01/13/25 06:45 01/17/25 12:38 Insulin Lispro (Admelog) 1 Unit/0.01 Ml Unit SC 02/12/25 06:44 Not Given Q6HR [facility] Protocol Methylprednisolone Sodium Succinate 10 mg 01/17/25 21:00 Methylprednisolone Sod Succ 40 Mg Vial IV 01/24/25 20:59 BID CAMERON Pantoprazole Sodium 40 mg 01/12/25 09:00 01/17/25 08:19 Pantoprazole Inj 40 Mg Vial IVP 02/11/25 08:59 40 mg QDAY CAMERON Administration Thiamine HCl 100 mg 01/17/25 11:00 01/17/25 12:33 Thiamine Inj 100 Mg/Ml Vial 2 Ml IV 02/16/25 10:59 100 mg QDAY CAMERON Administration Plan The patient is a 59-year-old female with past medical history of inflammatory bowel disease/ulcerative colitis on chronic steroids that was recently discharged on 12/21/2024 for IBS flareup and admitted on 01/11 for pneumoperitoneum requiring emergent ex-lap. Found to have multiple areas of small and large bowel perforation with feculent peritonitis as well as coloenteric fistulas. Underwent subtotal colectomy on 01/11 and subsequently admitted to the ICU for further management. patient was downgraded to medical floors on 01/15 for furtehr management. 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 Crohn's - CT on admission: pneumoperitoneum and went to OR emergently. Found to have multiple bowel perforations in small and large intestine causing feculent peritonitis. - 01/11 : First operation with bowel resction and second - Blood cultures (01/11): Negative - 01/14 : small bowel anastomosis with end ileostomy, cholecystectomy, and abdominal washout with closure. She was extubated in PACU and then returned to ICU - 01/16: Continue with Ice chips (ok with Surgeon), pain control, will wean down off dilaudid pump. Will need to wean off TPN at some point -219: Evaluated by surgeon, NG tube has been discontinued and the patient has been started on clear liquid diet. Will continue to wean off NURSING INFORMATICS SPECIALIST pump as well as TPN once diet improves. Plan: -IV Zosyn discontinued by ID, Unasyn commenced - Dr Crooks following, appreciate recs - Pain management: NURSING INFORMATICS SPECIALIST started 01/15, will wean off eventually - Continue with IV solu-medrol 20 mg IV BID - Will resume home mesalamine 400 mg PO QID, once off of NPO - ID consulted, following recommendations #Dyspnea #Cough It hurts for patient to cough at this time Would likely benefit from some mucolytic at this point Pt is maintaining oxygen saturations well Plan: - Continue with Mucinex Syrup - Duonebs q4h PRN - Chest physiotherapy #Reactive Leukocytosis #Hyperglycemia , acute WBC : 29 -> 24 -> 22 Likely secondary to steroid use Blood sugar >20 --> 170s now Plan: - Continue IV Methylpred 20 mg IV BID as recomemnded by GI - Anticipate WBC correction with discontinuation of steroids in future. Patient is on broad spectrum antibiotics. - Continue SSI every 6 hours - Continue Glargine 10 units HS #Normocytic anemia - resolved Presented with hemoglobin of 7.8 that improved to 9.2 after 4 units PRBC, and is also status-post 1 unit FFP - 01/15 : Hb 12.2 , wnl : Stable, continue to monitor #Electrolyte abnormalities #Hypokalemia #Hypophosphatemia Likely related to poor oral intake and absorption Currently on TPN, will adjust with TPN pharmacy for adequate electrolytes Plan: - Corrected with IV KPhos/Multivitamins @ 60cc/h - KPhos 22.5 x1 #Health Maintenance Disposition: Telemetry DVT prophylaxis: SCDs GI prophylaxis: Protonix 40 IV Diet: TPN, liquid diet CODE STATUS: Full Case was discussed with Dr Mckenzie PGY-2 and attending physician, Dr Perez Disclaimer: This note was dictated by speech recognition. Minor errors in innovation analyst may be present due to voice recognition software. Attending Provider Attestation/Addendum I have examined the patient, reviewed labs and imaging findings, discussed the case with the resident(s), and reviewed entered orders. I agree with the plan of care as outlined in this note, with these additional summaries/recommendations: Patient seen at bedside. Overnight patient became agitated requiring wrist restraints, Ativan, and a dose of Versed. Today at bedside patient appears back to her baseline mental status although is somnolent and did fall asleep during my interview. Patient currently on Zosyn for aspiration pneumonia and coverage for intra-abdominal infection. Patient initially had subtotal colectomy for multiple large and small bowel perforations and is now postoperative day #3 status post small bowel anastomosis, cholecystectomy and end ileostomy. Patient was started on ice chips yesterday and NG tube was clamped. Appreciate surgical recs on advancing diet today as patient still receiving TPN. Continue pain management. Patient was seen by physical therapy who recommends SNF placement when medically cleared for discharge. We will continue daily physical therapy. Continue IV Solu-Medrol and mesalamine for inflammatory bowel disease. Noted acute increase in white count most likely related to steroids and will continue to trend hematology panel daily. Hypokalemia and hypophosphatemia present and replacement given. Follow-up repeat levels this afternoon. Patient updated on the plan and in agreement. All questions answered to satisfaction. Dr. Chris MD
[2025-01-17] MEDS: HYDROmorphone 1 MG/ML PCA SYRINGE 30ML PCA (15:37)
--- NOTE | 2025-01-17 16:05 | PC.SS ---
Follow up note: SS followed up with patient on d/c plans. Patient still wants SNF short term. Her preference is [facility].
--- NOTE | 2025-01-17 16:30 | ESCONSULT_ITS ---
RE: DARIO TOPETE : 1965 DATE OF CONSULTATION: 01/17/2025 REFERRING PHYSICIAN: Tyrell Pang MD REASON FOR CONSULTATION: Perforated viscous probably associated with steroid therapy and inflammatory bowel disease. HISTORY OF PRESENT ILLNESS: The patient is an unfortunate 59-year-old who on her own decided to stop her medication. Her family is concerned that she was released a little early last time, but I do not think we have any hard proof of that. She had a perforation that was treated surgically a couple of days ago by Dr. Crooks. She is on some perioperative Zosyn, but Unasyn will probably work just as well. There are no positive cultures. She does not feel like she had any antibiotics recently, as best I can tell, did have some enteritis recently, but that was probably a flare of her inflammatory bowel disease. It is unclear if she was taking her medications in the short time, she was out of the hospital before she came back in, apparently according to family from an early release. PAST MEDICAL HISTORY: Include inflammatory bowel disease, chronic diarrhea. She is 0, para 0. PAST SURGICAL HISTORY: Abdominal surgery to this admission. ALLERGIES: QUINOLONES, POSSIBLY ANOTHER AGENT BUT SHE DENIES ANY ALLERGIES. IMMUNIZATIONS: Last tetanus is not known. She does not take a flu shot regularly, has not had COVID vaccine. She does not have pneumococcal vaccine. FAMILY HISTORY: Unremarkable. SOCIAL HISTORY: She lives alone. She is a former smoker and quit 10 years ago. PHYSICAL EXAMINATION: On exam, the patient has a benign abdomen. She is on TPN via central line in the right IJ position. She does not appear to have other lines in place at the moment. She has an NG tube present, though hopes for that to be removed in the near future, that is up to others. ASSESSMENT: Peritonitis perforation. Likely organisms are enteric and anaerobes. Zosyn is an excellent agent for all those as is Unasyn. RECOMMENDATIONS: 1. I am going to switch her from Zosyn to Unasyn 3 grams every six hours and follow her up again Wednesday. 2. If she worsens, you can switch her back to Zosyn, but for now, I would probably just leave her on Unasyn through Wednesday for 7 days postop. 3. I will check on her again on Wednesday. DT: 14:30:29 TT: 14:59:00 Ref: [id number] - TID: [id number] MTDD
[2025-01-17] MEDS: AMPICILLIN/SULBAC INJ 3 GM in SODIUM CHLORIDE 0.9% (P) 100 ML IV ×2 (17:11→23:27)
[2025-01-17] MEDS: POTASSIUM PHOS IV (18:10)
[2025-01-17] MEDS: [UNRECOGNIZED DRUG - OTHER] IV (18:10)
[2025-01-17] MEDS: POTASSIUM CHLORIDE 10% 20 MEQ/15 ML UDC 10 MEQ PO (19:33)
[2025-01-17] MEDS: INSULIN GLARGINE (Lantus) 5 UNIT/0.05 ML (PER 5 UNITS) 10 UNIT SC (21:17)
[2025-01-18] VITALS (10 sets, daily range): BP systolic 104–145; BP diastolic 82–96; PULSE 97–126; RESP 14–98; TEMP 36–36.9; O2SAT 98–99; BMI 20.9; BMI 12.0
[2025-01-18 05:27] LABS: Basophils # (Auto) 0.1 Thou/mm3 (0.0-0.2); Basophils % (Auto) 0 % (0-2.5); Eosinophils % (Auto) 0 % (0-10); Hematocrit 34.9 % (36.0-46.0); Hemoglobin 11.8 g/dL (12.0-16.0); Immature Granulocytes % (Auto) 8 % (0-0); Immature Granulocytes Auto 1.26 Thou/mm3 (0.00-0.00); Lymphocytes # (Auto) 1.2 Thou/mm3 (1.0-4.8); Lymphocytes % (Auto) 8 % (10-50); Mean Corpuscular HGB Conc 33.8 g/dl (31.0-37.0); Mean Corpuscular Hemoglobin 29.1 pg (25.0-35.0); Mean Corpuscular Volume 86 fL (80-100); Monocytes # (Auto) 0.4 Thou/mm3 (0.0-0.8); Monocytes % (Auto) 2 % (0-12); Neutrophils # (Auto) 13.1 Thou/mm3 (1.8-7.7); Neutrophils % (Auto) 82 % (37-80); Nucleated Red Blood Cell % 0 /100 WBC (0); Platelet Count 186 Thou/mm3 (140-440); RDW Standard Deviation 51.8 fL (36.4-46.3); Red Blood Count 4.05 Miln/mm3 (4.00-5.20)
[2025-01-18] MEDS: AMPICILLIN/SULBAC INJ 3 GM in SODIUM CHLORIDE 0.9% (P) 100 ML IV ×4 (05:43→23:33)
[2025-01-18 06:43] LABS: Alanine Aminotransferase 76 U/L (10-49); Albumin, Serum 3.1 gm/dL (3.4-4.8); Albumin/Globulin Ratio 1.3 (1.2-2.2); Alkaline Phosphatase 207 U/L (46-116); Anion Gap 7 (7-16); Aspartate Amino Transferase 46 U/L (0-34); BUN/Creatinine Ratio 85 Ratio (12-20); Bilirubin,Total 0.7 mg/dL (0.3-1.2); Blood Urea Nitrogen 17 mg/dL (9-23); Calcium (Corrected) 9.7 mg/dL (8.5-10.1); Chloride 104 mMol/L (98-107); Creatinine (Component) 0.2 mg/dL (0.6-1.3); Estimated Creatinine Clearance 222.9 mL/min (>60); Globulin 2.3 gm/dL (2.3-3.5); Glucose 135 mg/dL (74-106); Magnesium 2.1 mg/dL (1.6-2.6); Osmolality,Calculated 275 (275-295); Phosphorous 2.4 mg/dL (2.4-5.1); Sodium 136 mMol/L (136-145); Total Protein 5.4 gm/dL (5.7-8.2); eGFR > 60 See Note
[2025-01-18] MEDS: PANTOPRAZOLE INJ 40 MG VIAL IVP (08:11)
[2025-01-18] MEDS: THIAMINE INJ 100 MG/ML VIAL 2 ML IV (08:13)
[2025-01-18] MEDS: ENOXAPARIN SOD INJ 40 MG/0.4 ML SYRINGE SC (08:13)
--- NOTE | 2025-01-18 10:15 | PD.SURPROG ---
Documentation for date of: 01/18/25 Subjective Subjective Narrative: Patient is seen and examined. She is feeling better today. Her NG tube was removed yesterday, she has been tolerating clear liquids. Her Pacheco catheter was removed she has been voiding Exam Vital Signs Temp Pulse Resp BP Pulse Ox O2 Del Method O2 Flow Rate 98.4 F 109 H 19 107/84 99 Nasal Cannula 0.5 01/18/25 08:00 01/18/25 08:00 01/18/25 08:00 01/18/25 08:00 01/18/25 08:00 01/18/25 08:00 01/18/25 08:00 FiO2 30 01/14/25 08:00 Constitutional Constitutional: no acute distress Routine Abdominal Exam Comments: Abdomen is soft and nondistended. Incision is clean, dry and intact. Ileostomy is present and functional with liquidy stool Assessment & Plan Assessment Additional comments: POD#6 s/p subtotal colectomy with en-bloc partial small bowel resection POD#4 s/p Re-exploration, SB anastomosis, cholecystectomy and end ileostomy Plan Advance to full liquids and Ensure supplements. Start tapering TPN. May taper steroids and DC Procedures Procedures Exploratory laparotomy, small bowel anastomosis with end ileostomy Cholecystectomy Abdominal washout and closure
[2025-01-18] MEDS: ZINC SULFATE 220 MG CAPSULE PO (11:57)
[2025-01-18] MEDS: INSULIN LISPRO (AdmeLOG) 1 UNIT/0.01 ML UNIT SC ×2 (11:57→23:33)
[2025-01-18] MEDS: ASCORBIC ACID 250 MG TABLET 500 MG PO ×2 (11:57→21:07)
--- NOTE | 2025-01-18 14:39 | ESPR_ITS ---
Documentation for date of: 01/18/25 Subjective Subjective Interval history: Patient seen at bedside. No acute overnight events. Patient reports she is feeling some improvement, NG tube was discontinued yesterday and she had clear liquid diet for breakfast this morning, tolerated well. Only complaint today is of some oozing from the incision site especially when she sits up, will get wound care on board. Evaluated by ID yesterday, Zosyn de-escalated to Unasyn to be continued until Wednesday to 01/20/2025 which will make a 7-day course postop. Exam Vital Signs Temp Pulse Resp BP Pulse Ox O2 Del Method O2 Flow Rate 97.8 F 121 H 20 144/88 H 99 Nasal Cannula 0.5 01/18/25 12:00 01/18/25 12:00 01/18/25 12:00 01/18/25 12:00 01/18/25 12:00 01/18/25 12:00 01/18/25 12:00 FiO2 30 01/14/25 08:00 Objective Labs 01/19/25 04:36 01/19/25 04:36 Labs: Laboratory Results - last 24 hr 01/11/25 01/18/25 17:55 04:25 WBC 16.0 H D RBC 4.05 Hgb 11.8 L Hct 34.9 L MCV 86 MCH 29.1 MCHC 33.8 RDW Std Deviation 51.8 H Plt Count 186 D Neut % (Auto) 82 H Lymph % (Auto) 8 L [place] % (Auto) 2 Eos % (Auto) 0 Baso % (Auto) 0 Neut # (Auto) 13.1 H Lymph # (Auto) 1.2 [place] # (Auto) 0.4 Eos # (Auto) 0.0 Baso # (Auto) 0.1 Immature Gran # (Auto) 1.26 H Absolute Nucleated RBC 0.00 Immature Gran % 8 H Nucleated RBC % 0 Sodium 136 Potassium 5.0 D Chloride 104 Carbon Dioxide 25.0 Anion Gap 7 BUN 17 Creatinine 0.2 L Estim Creat Clear Calc 222.9 eGFR > 60 BUN/Creatinine Ratio 85 H Glucose 135 H Calculated Osmolality 275 Calcium 9.0 Corrected Calcium 9.7 Phosphorus 2.4 Magnesium 2.1 Total Bilirubin 0.7 AST 46 H ALT 76 H Alkaline Phosphatase 207 H Total Protein 5.4 L Albumin 3.1 L Globulin 2.3 Albumin/Globulin Ratio 1.3 Crossmatch See Detail ABG Interpretation ABG results: 01/12/25 01/12/25 01/12/25 02:43 04:40 07:51 ABG pH 7.51 H 7.39 D 7.40 ABG pCO2 29 L 41 D 40 ABG pO2 235 H 145 H D 152 H ABG HCO3 23 25 25 ABG O2 Saturation 100 H 99 H 99 H ABG Base Excess 0 0 0 VBG pH VBG pCO2 VBG pO2 VBG Base Excess 01/13/25 01/15/25 04:17 11:51 ABG pH 7.32 L ABG pCO2 43 ABG pO2 137 H ABG HCO3 22 ABG O2 Saturation 99 H ABG Base Excess -4 L VBG pH 7.65 VBG pCO2 37 VBG pO2 75 H VBG Base Excess 18 H Quality Measures Quality Measures VTE prophylaxis Assessment & Plan Assessment Current Active Medications: Generic Name Dose Route Start Last Admin Trade Name Freq PRN Reason Stop Dose Admin Albuterol/Ipratropium 3 ml 01/16/25 11:56 01/16/25 12:04 Albuterol/Ipratropium (Duoneb) Rt Bambi 3 Ml Nebu INH 02/15/25 14:59 3 ml Q4HRRT PRN Administration SHORTNESS OF BREATH OR WHEEZE Ascorbic Acid 500 mg 01/18/25 10:30 01/18/25 11:57 Ascorbic Acid 250 Mg Tablet PO 02/17/25 10:29 500 mg BID CAMERON Administration Dextrose 50 ml 01/13/25 06:35 Dextrose 50%-Water Inj 50 Ml Syringe IV 02/12/25 06:34 Q15MIN PRN BG <50 OR BG <70 & pt unresponsive Enoxaparin Sodium 40 mg 01/16/25 09:00 01/18/25 08:13 Enoxaparin Sod Inj 40 Mg/0.4 Ml Syringe SC 01/30/25 08:59 40 mg QDAY CAMERON Administration Glucagon 1 mg 01/13/25 06:35 Glucagon Inj 1 Mg Vial IM Q15MIN PRN BG <70, and no IV access Guaifenesin 100 mg 01/16/25 11:54 Guaifenesin Syrup 200 Mg/10 Ml Udc NG 02/15/25 11:53 QID PRN COUGH Protocol Hydromorphone HCl 0 mg 01/15/25 13:00 01/17/25 15:37 Hydromorphone 1 Mg/Ml Tattoo Artist Syringe 30ml [employer] 01/20/25 12:59 30 mg UD CAMERON Administration Protocol Fat Emulsion Intravenous 500 mls @ 32 mls/hr 01/13/25 18:00 01/16/25 18:05 Intralipid 20% Iv IV 02/12/25 17:59 32 mls/hr [email or web address] CAMERON Administration Ampicillin Sodium/Sulbactam 100 mls @ 200 mls/hr 01/17/25 18:00 01/18/25 11:57 Sodium 3 gm/ Sodium Chloride IV 01/24/25 17:59 200 mls/hr Q6HR CAMERON Administration Potassium Chloride 50 meq/ 1,031 mls @ 30 mls/hr 01/17/25 18:00 01/17/25 18:10 Thiamine HCl 100 mg/ Potassium IV 01/18/25 17:59 30 mls/hr Phosphate 15 mmol/ Amino [email or web address] CAMERON Administration Acids/Electrolytes Insulin Glargine 10 unit 01/15/25 21:00 01/17/25 21:17 Insulin Glargine (Lantus) 5 Unit/0.05 Ml (Per 5 Units) SC 02/14/25 20:59 10 unit HS CAMERON Administration Insulin Human Lispro 0 unit 01/13/25 06:45 01/18/25 11:57 Insulin Lispro (Admelog) 1 Unit/0.01 Ml Unit SC 02/12/25 06:44 1 unit Q6HR CAMERON Administration Protocol Methylprednisolone Sodium Succinate 10 mg 01/17/25 21:00 01/18/25 08:10 Methylprednisolone Sod Succ 40 Mg Vial IV 01/24/25 20:59 10 mg BID CAMERON Administration Pantoprazole Sodium 40 mg 01/12/25 09:00 01/18/25 08:11 Pantoprazole Inj 40 Mg Vial IVP 02/11/25 08:59 40 mg QDAY CAMERON Administration Thiamine HCl 100 mg 01/17/25 11:00 01/18/25 08:13 Thiamine Inj 100 Mg/Ml Vial 2 Ml IV 02/16/25 10:59 100 mg QDAY CAMERON Administration Zinc Sulfate 220 mg 01/18/25 10:30 01/18/25 11:57 Zinc Sulfate 220 Mg Capsule PO 02/17/25 10:29 220 mg QDAY CAMERON Administration Plan Summary: The patient is a 59-year-old female with past medical history of inflammatory bowel disease/ulcerative colitis on chronic steroids that was recently discharged on 12/21/2024 for IBS flareup and admitted on 01/11 for pneumoperitoneum requiring emergent ex-lap. Found to have multiple areas of small and large bowel perforation with feculent peritonitis as well as coloenteric fistulas. Underwent subtotal colectomy on 01/11 and subsequently admitted to the ICU for further management. patient was downgraded to medical floors on 01/15 for furtehr management. 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 Crohn's - CT on admission: pneumoperitoneum and went to OR emergently. Found to have multiple bowel perforations in small and large intestine causing feculent peritonitis. - 01/11 : First operation with bowel resction and second - Blood cultures (01/11): Negative - 01/14 : small bowel anastomosis with end ileostomy, cholecystectomy, and abdominal washout with closure. She was extubated in PACU and then returned to ICU - 01/16: Continue with Ice chips (ok with Surgeon), pain control, will wean down off dilaudid pump. Will need to wean off TPN at some point -01/18: Started on clear liquid diet, tolerating well. Will work on weaning off [employer] and TPN. Plan: -Continue IV Unasyn - Dr Crooks following, appreciate recs - Pain management: [employer] started 01/15, will wean off eventually - Continue with IV solu-medrol 20 mg IV BID - Will resume home mesalamine 400 mg PO QID, once off of NPO - ID consulted, following recommendations #Dyspnea #Cough It hurts for patient to cough at this time Would likely benefit from some mucolytic at this point Pt is maintaining oxygen saturations well Plan: - Continue with Mucinex Syrup - Duonebs q4h PRN - Chest physiotherapy #Reactive Leukocytosis-resolving #Hyperglycemia , acute WBC : 29 -> 24 -> 22 Likely secondary to steroid use Blood sugar >20 --> 170s now Plan: - Continue IV Methylpred 20 mg IV BID as recomemnded by GI - Anticipate WBC correction with discontinuation of steroids in future. Patient is on broad spectrum antibiotics. - Continue SSI every 6 hours - Continue Glargine 10 units HS #Normocytic anemia - resolved Presented with hemoglobin of 7.8 that improved to 9.2 after 4 units PRBC, and is also status-post 1 unit FFP - 01/15 : Hb 12.2 , wnl : Stable, continue to monitor #Electrolyte abnormalities #Hypokalemia- resolved #Hypophosphatemia- resolved Likely related to poor oral intake and absorption Currently on TPN, will adjust with TPN pharmacy for adequate electrolytes Plan: - Corrected with IV KPhos/Multivitamins @ 60cc/h - KPhos 22.5 x1 #Health Maintenance Disposition: Telemetry DVT prophylaxis: SCDs GI prophylaxis: Protonix 40 IV Diet: TPN, liquid diet CODE STATUS: Full Case was discussed with Dr Kevin PGY-2 and attending physician, Dr Chris Hernandez MD PGY1 Disclaimer: This note was dictated by speech recognition. Minor errors in tile and mottle supervisor may be present due to voice recognition software. LPatient examined and case discussed with the team including attending physician. Note reviewed, I agree with the care plan as documented. Patient tolerating PO liquids. PT worked with patient, was able to sit upright, however bled from her surgical site. Will consider starting wound care for patient if general surgery ok. Pain controlled with [employer], renewed order today. Will prepare to transition off of TPN now. - Marlon Kevin MD, PGY 2 L Attending Provider Attestation/Addendum I have examined the patient, reviewed labs and imaging findings, discussed the case with the resident(s), and reviewed entered orders. I agree with the plan of care as outlined in this note, with these additional summaries/recommendations: Patient seen at bedside. No acute overnight events. Today at bedside patient reports she is feeling okay. NG tube was removed yesterday and patient reports she tolerated clear liquid diet this morning. General surgery following and recommends advancing to full liquids plus Ensure supplements. Will monitor patient's oral intake and wean TPN as tolerated. We are also in the process of tapering steroids and will continue IV Solu-Medrol 10 mg twice daily, then 10 mg Solu-Medrol daily, then DC. Infectious disease following and patient's IV antibiotics have been de-escalated to IV Unasyn for additional 3 days. Patient initially had subtotal colectomy for multiple large and small bowel perforations and is now postoperative day #4 status post small bowel anastomosis, cholecystectomy and end ileostomy. Continue mesalamine for inflammatory bowel disease. Patient updated on the plan and in agreement. All questions answered to satisfaction. Continue to encourage mobilization and patient worked with physical therapy today. Dr. Chris MD
--- NOTE | 2025-01-18 15:52 | PC.NURSE ---
Notified Dr Hernandez that patient medications Dilaudid in [employer] pump has discontinued without any further pain medications as PRN. Awaiting orders.
[2025-01-18] MEDS: HYDROmorphone 1 MG/ML PCA SYRINGE 30ML PCA (16:20)
[2025-01-18] MEDS: FAT EMULSIONS 20% IV 500 ML 32 ML IV (17:37)
[2025-01-18] MEDS: [UNRECOGNIZED DRUG - OTHER] IV (17:39)
[2025-01-18] MEDS: SOD PHOS ADDITIVE IV (17:39)
[2025-01-18] MEDS: AMINO ACID IV (17:39)
[2025-01-18] MEDS: THIAMINE IV (17:39)
--- NOTE | 2025-01-18 19:27 | ESPR_ITS ---
Documentation for date of: 01/18/25 Subjective Subjective Interval history: Patient evaluated WBC count down to 16.0 Hemoglobin hematocrit 11.8 and 34.0 Patient alert and oriented Exam Vital Signs Temp Pulse Resp BP Pulse Ox O2 Del Method O2 Flow Rate 96.8 F 97 18 126/92 H 99 Room Air 0.5 01/18/25 16:00 01/18/25 16:00 01/18/25 16:00 01/18/25 16:00 01/18/25 16:00 01/18/25 16:00 01/18/25 12:00 FiO2 30 01/14/25 08:00 Objective Labs 01/18/25 04:25 01/18/25 04:25 Labs: Laboratory Results - last 24 hr 01/18/25 04:25 WBC 16.0 H D RBC 4.05 Hgb 11.8 L Hct 34.9 L MCV 86 MCH 29.1 MCHC 33.8 RDW Std Deviation 51.8 H Plt Count 186 D Neut % (Auto) 82 H Lymph % (Auto) 8 L [place] % (Auto) 2 Eos % (Auto) 0 Baso % (Auto) 0 Neut # (Auto) 13.1 H Lymph # (Auto) 1.2 [place] # (Auto) 0.4 Eos # (Auto) 0.0 Baso # (Auto) 0.1 Immature Gran # (Auto) 1.26 H Absolute Nucleated RBC 0.00 Immature Gran % 8 H Nucleated RBC % 0 Sodium 136 Potassium 5.0 D Chloride 104 Carbon Dioxide 25.0 Anion Gap 7 BUN 17 Creatinine 0.2 L Estim Creat Clear Calc 222.9 eGFR > 60 BUN/Creatinine Ratio 85 H Glucose 135 H Calculated Osmolality 275 Calcium 9.0 Corrected Calcium 9.7 Phosphorus 2.4 Magnesium 2.1 Total Bilirubin 0.7 AST 46 H ALT 76 H Alkaline Phosphatase 207 H Total Protein 5.4 L Albumin 3.1 L Globulin 2.3 Albumin/Globulin Ratio 1.3 Impressions Impression: # Status post exploratory laparotomy with subtotal colectomy Continue ABG Interpretation ABG results: 01/12/25 01/12/25 01/12/25 02:43 04:40 07:51 ABG pH 7.51 H 7.39 D 7.40 ABG pCO2 29 L 41 D 40 ABG pO2 235 H 145 H D 152 H ABG HCO3 23 25 25 ABG O2 Saturation 100 H 99 H 99 H ABG Base Excess 0 0 0 VBG pH VBG pCO2 VBG pO2 VBG Base Excess 01/13/25 01/15/25 04:17 11:51 ABG pH 7.32 L ABG pCO2 43 ABG pO2 137 H ABG HCO3 22 ABG O2 Saturation 99 H ABG Base Excess -4 L VBG pH 7.65 VBG pCO2 37 VBG pO2 75 H VBG Base Excess 18 H Assessment & Plan A&P Narrative cx neg. on zosyn for 3-4d post op or so pt appears to remain npo. changed to iv unasyn. can go with po augmentin if able to take enterally, Time Spent With Patient Time: Total time spent is greater than 50% in coordination of care (as documented) at patient's floor/unit and/or counseling patient:
[2025-01-18] MEDS: INSULIN GLARGINE (Lantus) 5 UNIT/0.05 ML (PER 5 UNITS) 10 UNIT SC (21:06)
[2025-01-19] VITALS (8 sets, daily range): BP systolic 102–122; BP diastolic 60–86; PULSE 91–125; RESP 15–20; TEMP 36.1–36.7; O2SAT 99; BMI 21.7; BMI 12.0
[2025-01-19] MEDS: AMPICILLIN/SULBAC INJ 3 GM in SODIUM CHLORIDE 0.9% (P) 100 ML IV ×3 (05:06→17:57)
[2025-01-19 05:29] LABS: Basophils # (Auto) 0.1 Thou/mm3 (0.0-0.2); Basophils % (Auto) 0 % (0-2.5); Eosinophils % (Auto) 0 % (0-10); Hematocrit 33.8 % (36.0-46.0); Hemoglobin 11.5 g/dL (12.0-16.0); Immature Granulocytes % (Auto) 7 % (0-0); Lymphocytes # (Auto) 1.2 Thou/mm3 (1.0-4.8); Lymphocytes % (Auto) 6 % (10-50); Mean Corpuscular Hemoglobin 29.6 pg (25.0-35.0); Mean Corpuscular Volume 87 fL (80-100); Monocytes # (Auto) 0.3 Thou/mm3 (0.0-0.8); Monocytes % (Auto) 2 % (0-12); Neutrophils # (Auto) 15.7 Thou/mm3 (1.8-7.7); Neutrophils % (Auto) 85 % (37-80); Nucleated Red Blood Cell % 0 /100 WBC (0); Platelet Count 195 Thou/mm3 (140-440); RDW Standard Deviation 51.8 fL (36.4-46.3); Red Blood Count 3.88 Miln/mm3 (4.00-5.20); White Blood Count 18.6 Thou/mm3 (3.6-11.0)
[2025-01-19 06:15] LABS: Alanine Aminotransferase 80 U/L (10-49); Albumin/Globulin Ratio 1.4 (1.2-2.2); Alkaline Phosphatase 205 U/L (46-116); Anion Gap 10 (7-16); Aspartate Amino Transferase 59 U/L (0-34); BUN/Creatinine Ratio 70 Ratio (12-20); Bilirubin,Total 0.7 mg/dL (0.3-1.2); Blood Urea Nitrogen 14 mg/dL (9-23); Calcium 8.6 mg/dL (8.3-10.6); Calcium (Corrected) 9.4 mg/dL (8.5-10.1); Chloride 102 mMol/L (98-107); Creatinine (Component) 0.2 mg/dL (0.6-1.3); Estimated Creatinine Clearance 222.9 mL/min (>60); Globulin 2.2 gm/dL (2.3-3.5); Glucose 130 mg/dL (74-106); Osmolality,Calculated 280 (275-295); Phosphorous 2.2 mg/dL (2.4-5.1); Potassium 3.8 mMol/L (3.4-5.1); Sodium 139 mMol/L (136-145); Total Protein 5.2 gm/dL (5.7-8.2); eGFR > 60 See Note
[2025-01-19] MEDS: ZINC SULFATE 220 MG CAPSULE PO (09:37)
[2025-01-19] MEDS: ASCORBIC ACID 250 MG TABLET 500 MG PO ×2 (09:37→20:43)
[2025-01-19] MEDS: NAPH,KPH MBDB 1 PACKET (1.5 GM) PO (09:37)
[2025-01-19] MEDS: ENOXAPARIN SOD INJ 40 MG/0.4 ML SYRINGE SC (09:38)
[2025-01-19] MEDS: PANTOPRAZOLE INJ 40 MG VIAL IVP (09:38)
[2025-01-19] MEDS: THIAMINE INJ 100 MG/ML VIAL 2 ML IV (09:39)
--- NOTE | 2025-01-19 11:59 | PD.SURPROG ---
Documentation for date of: 01/19/25 Subjective Subjective Narrative: Patient is seen and examined. Her pain is improving. She is tolerating liquids without nausea or vomiting and her ileostomy is functioning Exam Vital Signs Temp Pulse Resp BP Pulse Ox O2 Del Method O2 Flow Rate 98.0 F 110 H 18 122/86 H 99 Nasal Cannula 2 01/19/25 08:00 01/19/25 08:03 01/19/25 08:03 01/19/25 08:00 01/19/25 08:03 01/19/25 08:00 01/19/25 08:03 FiO2 30 01/14/25 08:00 Constitutional Constitutional: no acute distress Routine Abdominal Exam Comments: Abdomen is soft and nondistended. Ileostomy is present and functional. Incision is intact and clean with some drainage from the inferior aspect. No evidence of infection at this time Assessment & Plan Assessment Additional comments: POD#7 s/p subtotal colectomy with en-bloc partial small bowel resection POD#5 s/p Re-exploration, SB anastomosis, cholecystectomy and end ileostomy Plan Continue IV antibiotics. Will start patient on soft diet and Ensure supplements. If there are no indications may DC methylprednisolone Procedures Procedures Exploratory laparotomy, small bowel anastomosis with end ileostomy Cholecystectomy Abdominal washout and closure
--- NOTE | 2025-01-19 13:35 | ESPR_ITS ---
Documentation for date of: 01/19/25 Subjective Subjective Interval history: Patient seen at bedside. No acute overnight events. She reports some pain today, attributes this to having dairy products, some associated bloating but otherwise is doing well. Still on WARD SERVICE SUPERVISOR pump, weaning off. She was advanced to full liquid diet by surgeon. Still on TPN. Labs reviewed, slight bump in WBC, will reduce dose of steroid to once daily as opposed to twice. 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 Eyes open, symmetrical, & clear. Central line in situ CARDIO: No chest pain on palpation. Heart RRR, no obvious murmurs PULM: No noted coughing/dyspnea. Lungs CTA B/L GI: Abdomen soft, nondistended, no pain on palpation. Incisional site clean, no discharge. Ileostomy functioning well. 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 SKIN/MSK/EXT: No wounds/rashes/edema/amputations, no pain on palpation. Pedal pulses present B/L Objective Labs 01/20/25 05:24 01/20/25 05:24 Labs: Laboratory Results - last 24 hr 01/19/25 04:36 WBC 18.6 H RBC 3.88 L Hgb 11.5 L Hct 33.8 L MCV 87 MCH 29.6 MCHC 34.0 RDW Std Deviation 51.8 H Plt Count 195 Neut % (Auto) 85 H Lymph % (Auto) 6 L [place] % (Auto) 2 Eos % (Auto) 0 Baso % (Auto) 0 Neut # (Auto) 15.7 H Lymph # (Auto) 1.2 [place] # (Auto) 0.3 Eos # (Auto) 0.0 Baso # (Auto) 0.1 Immature Gran # (Auto) 1.30 H Absolute Nucleated RBC 0.00 Immature Gran % 7 H Nucleated RBC % 0 Sodium 139 Potassium 3.8 D Chloride 102 Carbon Dioxide 27.0 Anion Gap 10 BUN 14 Creatinine 0.2 L Estim Creat Clear Calc 222.9 eGFR > 60 BUN/Creatinine Ratio 70 H Glucose 130 H Calculated Osmolality 280 Calcium 8.6 Corrected Calcium 9.4 Phosphorus 2.2 L Magnesium 2.0 Total Bilirubin 0.7 AST 59 H ALT 80 H Alkaline Phosphatase 205 H Total Protein 5.2 L Albumin 3.0 L Globulin 2.2 L Albumin/Globulin Ratio 1.4 ABG Interpretation ABG results: 01/12/25 01/12/25 01/12/25 02:43 04:40 07:51 ABG pH 7.51 H 7.39 D 7.40 ABG pCO2 29 L 41 D 40 ABG pO2 235 H 145 H D 152 H ABG HCO3 23 25 25 ABG O2 Saturation 100 H 99 H 99 H ABG Base Excess 0 0 0 VBG pH VBG pCO2 VBG pO2 VBG Base Excess 01/13/25 01/15/25 04:17 11:51 ABG pH 7.32 L ABG pCO2 43 ABG pO2 137 H ABG HCO3 22 ABG O2 Saturation 99 H ABG Base Excess -4 L VBG pH 7.65 VBG pCO2 37 VBG pO2 75 H VBG Base Excess 18 H Quality Measures Quality Measures VTE prophylaxis Assessment & Plan Assessment Current Active Medications: Generic Name Dose Route Start Last Admin Trade Name Freq PRN Reason Stop Dose Admin Albuterol/Ipratropium 3 ml 01/16/25 11:56 01/16/25 12:04 Albuterol/Ipratropium (Duoneb) Rt Bambi 3 Ml Nebu INH 02/15/25 14:59 3 ml Q4HRRT PRN Administration SHORTNESS OF BREATH OR WHEEZE Ascorbic Acid 500 mg 01/18/25 10:30 01/19/25 09:37 Ascorbic Acid 250 Mg Tablet PO 02/17/25 10:29 500 mg BID CAMERON Administration Dextrose 50 ml 01/13/25 06:35 Dextrose 50%-Water Inj 50 Ml Syringe IV 02/12/25 06:34 Q15MIN PRN BG <50 OR BG <70 & pt unresponsive Enoxaparin Sodium 40 mg 01/16/25 09:00 01/19/25 09:38 Enoxaparin Sod Inj 40 Mg/0.4 Ml Syringe SC 01/30/25 08:59 40 mg QDAY CAMERON Administration Glucagon 1 mg 01/13/25 06:35 Glucagon Inj 1 Mg Vial IM Q15MIN PRN BG <70, and no IV access Guaifenesin 100 mg 01/16/25 11:54 Guaifenesin Syrup 200 Mg/10 Ml Udc NG 02/15/25 11:53 QID PRN COUGH Protocol Hydromorphone HCl 0 mg 01/18/25 16:00 01/18/25 16:20 Hydromorphone 1 Mg/Ml Spline Rolling Machine Job Setter Syringe 30ml WARD SERVICE SUPERVISOR 01/23/25 15:59 30 mg UD CAMERON Administration Protocol Fat Emulsion Intravenous 500 mls @ 32 mls/hr 01/13/25 18:00 01/18/25 17:37 Intralipid 20% Iv IV 02/12/25 17:59 32 mls/hr TUTHSA@1800 CAMERON Administration Ampicillin Sodium/Sulbactam 100 mls @ 200 mls/hr 01/17/25 18:00 01/19/25 12:43 Sodium 3 gm/ Sodium Chloride IV 01/24/25 17:59 200 mls/hr Q6HR CAMERON Administration Sodium Phosphate 15 mmol/ 1,006 mls @ 30 mls/hr 01/18/25 18:00 01/18/25 17:39 Thiamine HCl 100 mg/ Amino IV 01/19/25 17:59 30 mls/hr Acids/Electrolytes QDAY@1800 CAMERON Administration Potassium Chloride 40 meq/ 1,031 mls @ 30 mls/hr 01/19/25 18:00 Thiamine HCl 100 mg/ IV 01/20/25 17:59 Multivitamins/Minerals 10 ml/ QDAY@1800 CAMERON Amino Acids/Electrolytes Insulin Glargine 10 unit 01/15/25 21:00 01/18/25 21:06 Insulin Glargine (Lantus) 5 Unit/0.05 Ml (Per 5 Units) SC 02/14/25 20:59 10 unit HS [facility] Administration Insulin Human Lispro 0 unit 01/19/25 07:30 01/19/25 11:36 Insulin Lispro (Admelog) 1 Unit/0.01 Ml Unit SC 02/18/25 07:29 Not Given ACHS [facility] Protocol Pantoprazole Sodium 40 mg 01/12/25 09:00 01/19/25 09:38 Pantoprazole Inj 40 Mg Vial IVP 02/11/25 08:59 40 mg QDAY CAMERON Administration Thiamine HCl 100 mg 01/17/25 11:00 01/19/25 09:39 Thiamine Inj 100 Mg/Ml Vial 2 Ml IV 02/16/25 10:59 100 mg QDAY CAMERON Administration Zinc Sulfate 220 mg 01/18/25 10:30 01/19/25 09:37 Zinc Sulfate 220 Mg Capsule PO 02/17/25 10:29 220 mg QDAY CAMERON Administration Plan Summary: The patient is a 59-year-old female with past medical history of inflammatory bowel disease/ulcerative colitis on chronic steroids that was recently discharged on 12/21/2024 for IBS flareup and admitted on 01/11 for pneumoperitoneum requiring emergent ex-lap. Found to have multiple areas of small and large bowel perforation with feculent peritonitis as well as coloenteric fistulas. Underwent subtotal colectomy on 01/11 and subsequently admitted to the ICU for further management. patient was downgraded to medical floors on 01/15 for furtehr management. 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 Crohn's - CT on admission: pneumoperitoneum and went to OR emergently. Found to have multiple bowel perforations in small and large intestine causing feculent peritonitis. - 01/11 : First operation with bowel resction and second - Blood cultures (01/11): Negative - 01/14 : small bowel anastomosis with end ileostomy, cholecystectomy, and abdominal washout with closure. She was extubated in PACU and then returned to ICU - 01/16: Continue with Ice chips (ok with Surgeon), pain control, will wean down off dilaudid pump. Will need to wean off TPN at some point - 01/18: Started on clear liquid diet, tolerating well. Will work on weaning off WARD SERVICE SUPERVISOR and TPN. 01/19: Diet advanced, no nausea/vomiting, minimal pain attributed to dairy intake. Will wean off WARD SERVICE SUPERVISOR and TPN Plan: -Continue IV Unasyn - Dr Crooks following, appreciate recs - Pain management: WARD SERVICE SUPERVISOR started 01/15, will wean off eventually - IV solumedrol reduced to 10mg daily - Will resume home mesalamine 400 mg PO QID, once cleared by GI - ID consulted, following recommendations #Dyspnea- resolved #Cough- resolved It hurts for patient to cough at this time Would likely benefit from some mucolytic at this point Pt is maintaining oxygen saturations well Plan: - Incentive spirometry - Continue with Mucinex Syrup - Duonebs q4h PRN - Chest physiotherapy #Reactive Leukocytosis-resolving #Hyperglycemia , acute WBC : 29 -> 24 -> 22 Likely secondary to steroid use Blood sugar >20 --> 170s now Plan: - Continue IV Methylpred 20 mg IV BID as recomemnded by GI - Anticipate WBC correction with discontinuation of steroids in future. Patient is on broad spectrum antibiotics. - Continue SSI every 6 hours - Continue Glargine 10 units HS #Normocytic anemia - resolved Presented with hemoglobin of 7.8 that improved to 9.2 after 4 units PRBC, and is also status-post 1 unit FFP - 01/15 : Hb 12.2 , wnl : Stable, continue to monitor #Electrolyte abnormalities #Hypokalemia- resolved #Hypophosphatemia- resolved Likely related to poor oral intake and absorption Currently on TPN, will adjust with TPN pharmacy for adequate electrolytes Plan: - Corrected with IV KPhos/Multivitamins @ 60cc/h - KPhos 22.5 x1 #Health Maintenance Disposition: Telemetry DVT prophylaxis: SCDs GI prophylaxis: Protonix 40 IV Diet: TPN, liquid diet CODE STATUS: Full Case was discussed with Dr Kevin PGY-2 and attending physician, Dr Perez Disclaimer: This note was dictated by speech recognition. Minor errors in service line layer may be present due to voice recognition software. LPatient examined and case discussed with the team including attending physician. Note reviewed, I agree with the care plan as documented. Ms. Smith is a 59-year-old female with history of severe ulcerative colitis who was admitted with acute flare, colocolonic fistula and pneumoperitoneum requiring urgent laparotomy. Patient is status post subtotal colectomy day 7 postop, performed Dr Crooks. She has been tolerating liquid diet, and slowly transitioning off of TPN. On examination today patient endorses mild abdominal pain 4/10 on food consumption, which requires her to use her WARD SERVICE SUPERVISOR pump. She was able to sit upright with physical therapy, however still bleeds from her wound site. Plan: He will continue to advance diet as tolerated, Dr. Crooks following closely, appreciate recommendations. Will consider wound care to manage surgical site closely. Physical therapy to continue working with the patient. - Marlon Kevin MD, PGY 2 Disclaimer: The document bellow may not be free of grammatical/phonetic/typographic errors due to use of voice recognition software. This does not dissuade from the commitment to providing health care with the patient's best interest in mind. L Attending Provider Attestation/Addendum I have examined the patient, reviewed labs and imaging findings, discussed the case with the resident(s), and reviewed entered orders. I agree with the plan of care as outlined in this note, with these additional summaries/recommendations: Patient seen at bedside. No acute overnight events. Patient has no new symptoms to report today. She still endorses generalized weakness, fatigue, poor oral intake although overall improving. WBC count 18.6 today and hemoglobin staying stable and 11.5 range. No significant electrolyte abnormalities except for mildly low Phos at 2.2 and replacement given ileostomy noted to have output. We will advance patient's diet to soft diet and Ensure supplements today. Antibiotics de-escalated to IV Unasyn and infectious disease following. Noted slightly increased WBC count today although we feel this is secondary to patient's steroids rather than worsening infection. We will discontinue IV Solu-Medrol today for IBD flare. Will continue to to wean artificial nutrition as diet improves. Continue insulin sliding scale for hyperglycemia although does not appear to have a history of diabetes mellitus type 2. Hyperglycemia likely secondary to steroids. Patient updated on plan and in agreement. Repeat hematology and chemistry panel in AM. Encourage patient to continue to mobilize as tolerated. Dr. Chris MD
--- NOTE | 2025-01-19 14:36 | PC.SS ---
Rounding note: Dr. Crooks consulted. Adv. diet. Weaning TPN. D/c to [facility] early next week
[2025-01-19] MEDS: HYDROmorphone 1 MG/ML PCA SYRINGE 30ML PCA (16:56)
[2025-01-19] MEDS: [UNRECOGNIZED DRUG - OTHER] IV (17:57)
[2025-01-19] MEDS: MULTIVITAMIN IV (17:57)
[2025-01-19] MEDS: POT CHL ADDITIVE IV (17:57)
[2025-01-19] MEDS: THIAMINE IV (17:57)
--- NOTE | 2025-01-19 19:36 | ESPR_ITS ---
Documentation for date of: 01/19/25 Subjective Subjective Interval history: Patient evaluated Functioning ileostomy tolerating full liquid diet WBC count up to 18.6 most likely induced by the steroids Exam Vital Signs Temp Pulse Resp BP Pulse Ox O2 Del Method O2 Flow Rate 97.1 F 99 20 102/76 99 Nasal Cannula 2 01/19/25 16:00 01/19/25 16:00 01/19/25 16:00 01/19/25 16:00 01/19/25 16:00 01/19/25 16:00 01/19/25 16:00 FiO2 30 01/14/25 08:00 Constitutional Comments: Alert oriented Routine Abdominal Exam Comments: Functioning ileostomy positive bowel sounds Objective Labs 01/19/25 04:36 01/19/25 04:36 Labs: Laboratory Results - last 24 hr 01/19/25 04:36 WBC 18.6 H RBC 3.88 L Hgb 11.5 L Hct 33.8 L MCV 87 MCH 29.6 MCHC 34.0 RDW Std Deviation 51.8 H Plt Count 195 Neut % (Auto) 85 H Lymph % (Auto) 6 L [place] % (Auto) 2 Eos % (Auto) 0 Baso % (Auto) 0 Neut # (Auto) 15.7 H Lymph # (Auto) 1.2 [place] # (Auto) 0.3 Eos # (Auto) 0.0 Baso # (Auto) 0.1 Immature Gran # (Auto) 1.30 H Absolute Nucleated RBC 0.00 Immature Gran % 7 H Nucleated RBC % 0 Sodium 139 Potassium 3.8 D Chloride 102 Carbon Dioxide 27.0 Anion Gap 10 BUN 14 Creatinine 0.2 L Estim Creat Clear Calc 222.9 eGFR > 60 BUN/Creatinine Ratio 70 H Glucose 130 H Calculated Osmolality 280 Calcium 8.6 Corrected Calcium 9.4 Phosphorus 2.2 L Magnesium 2.0 Total Bilirubin 0.7 AST 59 H ALT 80 H Alkaline Phosphatase 205 H Total Protein 5.2 L Albumin 3.0 L Globulin 2.2 L Albumin/Globulin Ratio 1.4 Impressions Impression: # Status post exploratory laparotomy subtotal colectomy and end ileostomy Continue current management Will start cutting back the dose of methylprednisolone ABG Interpretation ABG results: 01/12/25 01/12/25 01/12/25 02:43 04:40 07:51 ABG pH 7.51 H 7.39 D 7.40 ABG pCO2 29 L 41 D 40 ABG pO2 235 H 145 H D 152 H ABG HCO3 23 25 25 ABG O2 Saturation 100 H 99 H 99 H ABG Base Excess 0 0 0 VBG pH VBG pCO2 VBG pO2 VBG Base Excess 01/13/25 01/15/25 04:17 11:51 ABG pH 7.32 L ABG pCO2 43 ABG pO2 137 H ABG HCO3 22 ABG O2 Saturation 99 H ABG Base Excess -4 L VBG pH 7.65 VBG pCO2 37 VBG pO2 75 H VBG Base Excess 18 H Assessment & Plan A&P Narrative cx neg. on zosyn for 3-4d post op or so pt appears to remain npo. changed to iv unasyn. can go with po augmentin if able to take enterally, Time Spent With Patient Time: Total time spent is greater than 50% in coordination of care (as documented) at patient's floor/unit and/or counseling patient:
[2025-01-19] MEDS: INSULIN GLARGINE (Lantus) 5 UNIT/0.05 ML (PER 5 UNITS) 10 UNIT SC (20:42)
[2025-01-20] VITALS (12 sets, daily range): BP systolic 110–129; BP diastolic 63–90; PULSE 69–128; RESP 14–19; TEMP 36.3–36.6; O2SAT 97–99; BMI 21.7
[2025-01-20] MEDS: AMPICILLIN/SULBAC INJ 3 GM in SODIUM CHLORIDE 0.9% (P) 100 ML IV ×4 (00:18→17:34)
[2025-01-20 06:37] LABS: Basophils # (Auto) 0.1 Thou/mm3 (0.0-0.2); Basophils % (Auto) 0 % (0-2.5); Eosinophils # (Auto) 0.1 Thou/mm3 (0.0-0.5); Eosinophils % (Auto) 0 % (0-10); Hematocrit 32.6 % (36.0-46.0); Hemoglobin 10.9 g/dL (12.0-16.0); Immature Granulocytes % (Auto) 5 % (0-0); Immature Granulocytes Auto 0.89 Thou/mm3 (0.00-0.00); Lymphocytes % (Auto) 6 % (10-50); Mean Corpuscular HGB Conc 33.4 g/dl (31.0-37.0); Mean Corpuscular Hemoglobin 29.4 pg (25.0-35.0); Mean Corpuscular Volume 88 fL (80-100); Monocytes # (Auto) 0.3 Thou/mm3 (0.0-0.8); Monocytes % (Auto) 2 % (0-12); Neutrophils # (Auto) 14.9 Thou/mm3 (1.8-7.7); Neutrophils % (Auto) 87 % (37-80); Nucleated Red Blood Cell % 0 /100 WBC (0); Platelet Count 276 Thou/mm3 (140-440); RDW Standard Deviation 52.4 fL (36.4-46.3); Red Blood Count 3.71 Miln/mm3 (4.00-5.20); White Blood Count 17.2 Thou/mm3 (3.6-11.0)
[2025-01-20 07:03] LABS: Alanine Aminotransferase 57 U/L (10-49); Albumin, Serum 2.8 gm/dL (3.4-4.8); Albumin/Globulin Ratio 1.3 (1.2-2.2); Alkaline Phosphatase 181 U/L (46-116); Anion Gap 9 (7-16); Aspartate Amino Transferase 32 U/L (0-34); BUN/Creatinine Ratio 55 Ratio (12-20); Bilirubin,Total 0.7 mg/dL (0.3-1.2); Blood Urea Nitrogen 11 mg/dL (9-23); Calcium 8.4 mg/dL (8.3-10.6); Calcium (Corrected) 9.4 mg/dL (8.5-10.1); Carbon Dioxide 28.1 mMol/L (20.0-31.0); Chloride 102 mMol/L (98-107); Creatinine (Component) < 0.2 mg/dL (0.6-1.3); Estimated Creatinine Clearance 222.9 mL/min (>60); Globulin 2.2 gm/dL (2.3-3.5); Glucose 108 mg/dL (74-106); Magnesium 1.8 mg/dL (1.6-2.6); Osmolality,Calculated 277 (275-295); Phosphorous 2.2 mg/dL (2.4-5.1); Potassium 3.1 mMol/L (3.4-5.1); Sodium 139 mMol/L (136-145); eGFR > 60 See Note
--- NOTE | 2025-01-20 07:06 | ESPR_ITS ---
Documentation for date of: 01/20/25 Subjective Subjective Narrative: Patient is seen and examined. Pain is improving. She tolerated soft diet without nausea or vomiting. She has been voiding without difficulty Exam Vital Signs Temp Pulse Resp BP Pulse Ox O2 Del Method O2 Flow Rate 97.6 F 99 18 128/90 H 99 Nasal Cannula 2 01/20/25 04:00 01/20/25 06:43 01/20/25 06:43 01/20/25 04:00 01/20/25 06:43 01/20/25 04:00 01/20/25 06:43 FiO2 30 01/14/25 08:00 Constitutional Constitutional: no acute distress Routine Abdominal Exam Abdominal: Present soft, normoactive bowel sounds, tenderness (Olena-incisional tenderness. Incision is clean, dry and intact) and ostomy (Ileostomy is present and functional); Absent distended Assessment & Plan Assessment Additional comments: POD#8 s/p subtotal colectomy with en-bloc partial small bowel resection POD#6 s/p Re-exploration, SB anastomosis, cholecystectomy and end ileostomy Plan Advance diet. DC TPN. DC PROGRAMMING INTERN. Methylprednisolone was discontinued. Increase ambulation and use incentive spirometer Procedures Procedures Exploratory laparotomy, small bowel anastomosis with end ileostomy Cholecystectomy Abdominal washout and closure
[2025-01-20] MEDS: PANTOPRAZOLE INJ 40 MG VIAL IVP (09:13)
[2025-01-20] MEDS: THIAMINE INJ 100 MG/ML VIAL 2 ML IV (09:14)
[2025-01-20] MEDS: ENOXAPARIN SOD INJ 40 MG/0.4 ML SYRINGE SC (09:14)
[2025-01-20] MEDS: POTASSIUM CHLORIDE 20 mEq TABCR 40 MEQ PO (09:15)
[2025-01-20] MEDS: ASCORBIC ACID 250 MG TABLET 500 MG PO ×2 (09:15→20:42)
[2025-01-20] MEDS: ZINC SULFATE 220 MG CAPSULE PO (09:15)
--- NOTE | 2025-01-20 09:16 | ESPR_ITS ---
Documentation for date of: 01/20/25 Subjective Subjective Interval history: Patient seen at bedside. No acute overnight events. Diet has been advanced to dysphagia [address] Crooks. Patient is tolerating current diet, no abdominal pain, nausea or vomiting. Ileostomy is functioning well. [employer] pump discontinued, pain management with Kabetogama and IV morphine. Labs reviewed, hypokalemia and hypophosphatemia noted, electrolytes have been repleted as well as albumin. WBC downtrending, steroids have been discontinued. Will continue patient's diet and plan to wean off of TPN Exam Vital Signs Temp Pulse Resp BP Pulse Ox O2 Del Method O2 Flow Rate 97.3 F 95 14 128/90 H 99 Nasal Cannula 2 01/20/25 08:00 01/20/25 08:00 01/20/25 08:00 01/20/25 08:00 01/20/25 08:00 01/20/25 08:00 01/20/25 08:00 FiO2 30 01/14/25 08:00 Objective Labs 01/21/25 05:40 01/21/25 05:40 Labs: Laboratory Results - last 24 hr 01/20/25 05:24 WBC 17.2 H RBC 3.71 L Hgb 10.9 L Hct 32.6 L MCV 88 MCH 29.4 MCHC 33.4 RDW Std Deviation 52.4 H Plt Count 276 D Neut % (Auto) 87 H Lymph % (Auto) 6 L [place] % (Auto) 2 Eos % (Auto) 0 Baso % (Auto) 0 Neut # (Auto) 14.9 H Lymph # (Auto) 1.0 [place] # (Auto) 0.3 Eos # (Auto) 0.1 Baso # (Auto) 0.1 Immature Gran # (Auto) 0.89 H Absolute Nucleated RBC 0.00 Immature Gran % 5 H Nucleated RBC % 0 Sodium 139 Potassium 3.1 L D Chloride 102 Carbon Dioxide 28.1 Anion Gap 9 BUN 11 Creatinine < 0.2 L Estim Creat Clear Calc 222.9 eGFR > 60 BUN/Creatinine Ratio 55 H Glucose 108 H Calculated Osmolality 277 Calcium 8.4 Corrected Calcium 9.4 Phosphorus 2.2 L Magnesium 1.8 Total Bilirubin 0.7 AST 32 ALT 57 H Alkaline Phosphatase 181 H D Total Protein 5.0 L Albumin 2.8 L Globulin 2.2 L Albumin/Globulin Ratio 1.3 ABG Interpretation ABG results: 01/12/25 01/12/25 01/12/25 02:43 04:40 07:51 ABG pH 7.51 H 7.39 D 7.40 ABG pCO2 29 L 41 D 40 ABG pO2 235 H 145 H D 152 H ABG HCO3 23 25 25 ABG O2 Saturation 100 H 99 H 99 H ABG Base Excess 0 0 0 VBG pH VBG pCO2 VBG pO2 VBG Base Excess 01/13/25 01/15/25 04:17 11:51 ABG pH 7.32 L ABG pCO2 43 ABG pO2 137 H ABG HCO3 22 ABG O2 Saturation 99 H ABG Base Excess -4 L VBG pH 7.65 VBG pCO2 37 VBG pO2 75 H VBG Base Excess 18 H Quality Measures Quality Measures VTE prophylaxis Assessment & Plan Assessment Current Active Medications: Generic Name Dose Route Start Last Admin Trade Name Freq PRN Reason Stop Dose Admin Hydrocodone Bitart/Acetaminophen 1 tab 01/20/25 07:08 Hydrocodone/Apap 7.5/325 Tablet PO 01/25/25 07:07 Q6HR PRN PAIN 1-6 (mild-mod Albuterol/Ipratropium 3 ml 01/16/25 11:56 01/16/25 12:04 Albuterol/Ipratropium (Duoneb) Rt Bambi 3 Ml Nebu INH 02/15/25 14:59 3 ml Q4HRRT PRN Administration SHORTNESS OF BREATH OR WHEEZE Ascorbic Acid 500 mg 01/18/25 10:30 01/20/25 09:15 Ascorbic Acid 250 Mg Tablet PO 02/17/25 10:29 500 mg BID CAMERON Administration Dextrose 50 ml 01/13/25 06:35 Dextrose 50%-Water Inj 50 Ml Syringe IV 02/12/25 06:34 Q15MIN PRN BG <50 OR BG <70 & pt unresponsive Enoxaparin Sodium 40 mg 01/16/25 09:00 01/20/25 09:14 Enoxaparin Sod Inj 40 Mg/0.4 Ml Syringe SC 01/30/25 08:59 40 mg QDAY CAMERON Administration Glucagon 1 mg 01/13/25 06:35 Glucagon Inj 1 Mg Vial IM Q15MIN PRN BG <70, and no IV access Guaifenesin 100 mg 01/16/25 11:54 Guaifenesin Syrup 200 Mg/10 Ml Udc NG 02/15/25 11:53 QID PRN COUGH Protocol Hydromorphone HCl 1 mg 01/20/25 07:08 Hydromorphone Inj 2 Mg/Ml Vial IVP 01/25/25 07:07 Q3HR PRN PAIN SCALE 7-10 (Severe Fat Emulsion Intravenous 500 mls @ 32 mls/hr 01/13/25 18:00 01/18/25 17:37 Intralipid 20% Iv IV 02/12/25 17:59 32 mls/hr [id number] CAMERON Administration Ampicillin Sodium/Sulbactam 100 mls @ 200 mls/hr 01/17/25 18:00 01/20/25 05:54 Sodium 3 gm/ Sodium Chloride IV 01/24/25 17:59 200 mls/hr Q6HR CAMERON Administration Potassium Phosphate 22.5 mmol/ 507.5 mls @ 82.778 mls/hr 01/20/25 07:13 Sodium Chloride IV 01/20/25 13:20 X1 ONE Insulin Glargine 10 unit 01/15/25 21:00 01/19/25 20:42 Insulin Glargine (Lantus) 5 Unit/0.05 Ml (Per 5 Units) SC 02/14/25 20:59 10 unit HS CAMERON Administration Insulin Human Lispro 0 unit 01/19/25 07:30 01/19/25 20:44 Insulin Lispro (Admelog) 1 Unit/0.01 Ml Unit SC 02/18/25 07:29 Not Given ACHS CAMERON Protocol Pantoprazole Sodium 40 mg 01/12/25 09:00 01/20/25 09:13 Pantoprazole Inj 40 Mg Vial IVP 02/11/25 08:59 40 mg QDAY CAMERON Administration Potassium Chloride 40 meq 01/20/25 08:00 01/20/25 09:15 Potassium Chloride 20 Meq Tabcr PO 02/19/25 07:59 40 meq BIDWM CAMERON Administration Thiamine HCl 100 mg 01/17/25 11:00 01/20/25 09:14 Thiamine Inj 100 Mg/Ml Vial 2 Ml IV 02/16/25 10:59 100 mg QDAY CAMERON Administration Zinc Sulfate 220 mg 01/18/25 10:30 01/20/25 09:15 Zinc Sulfate 220 Mg Capsule PO 02/17/25 10:29 220 mg QDAY CAMERON Administration Plan Summary: The patient is a 59-year-old female with past medical history of inflammatory bowel disease/ulcerative colitis on chronic steroids that was recently discharged on 12/21/2024 for IBS flareup and admitted on 01/11 for pneumoperitoneum requiring emergent ex-lap. Found to have multiple areas of small and large bowel perforation with feculent peritonitis as well as coloenteric fistulas. Underwent subtotal colectomy on 01/11 and subsequently admitted to the ICU for further management. patient was downgraded to medical floors on 01/15 for furtehr management. 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 Crohn's - CT on admission: pneumoperitoneum and went to OR emergently. Found to have multiple bowel perforations in small and large intestine causing feculent peritonitis. - 01/11 : First operation with bowel resction and second - Blood cultures (01/11): Negative - 01/14 : small bowel anastomosis with end ileostomy, cholecystectomy, and abdominal washout with closure. She was extubated in PACU and then returned to ICU - 01/16: Continue with Ice chips (ok with Surgeon), pain control, will wean down off dilaudid pump. Will need to wean off TPN at some point - 01/18: Started on clear liquid diet, tolerating well. Will work on weaning off [employer] and TPN. 01/19: Diet advanced, no nausea/vomiting, minimal pain attributed to dairy intake. Will wean off [employer] and TPN 01/20: Diet has been advanced to dysphagia [address] Crooks. Patient is tolerating current diet, no abdominal pain, nausea or vomiting. Ileostomy is functioning well. [employer] pump discontinued, pain management with Kabetogama and IV morphine. Plan: -Continue IV Unasyn -Dr Crooks following, appreciate recs -[employer] pump DC'd, pain management with Kabetogama and IV Dilaudid -DC IV Solu-Medrol -Consider restarting mesalamine -ID consulted, following recommendations #Protein Calorie Malnutrition #Hypoproteinemia #Hypoalbuminemia The patient has had persistently low albumin level since prior to surgery. Likely due to decreased intake as well as losses Today, total protein-5.0 and albumin 2.8 Plan: -IV albumin -Continue oral diet #Dyspnea- resolved #Cough- resolved It hurts for patient to cough at this time Would likely benefit from some mucolytic at this point Pt is maintaining oxygen saturations well Plan: - Incentive spirometry - Continue with Mucinex Syrup - Duonebs q4h PRN - Chest physiotherapy #Reactive Leukocytosis-resolving #Hyperglycemia , acute WBC : 29 -> 24 -> 22 Likely secondary to steroid use Blood sugar >20 --> 170s now Plan: -Discontinued steroids - Anticipate WBC correction with discontinuation of steroids in future. Patient is on broad spectrum antibiotics. - Continue SSI every 6 hours - Continue Glargine 10 units HS #Normocytic anemia - resolved Presented with hemoglobin of 7.8 that improved to 9.2 after 4 units PRBC, and is also status-post 1 unit FFP - 01/15 : Hb 12.2 , wnl : Stable, continue to monitor #Electrolyte abnormalities #Hypokalemia- #Hypophosphatemia- Likely related to poor oral intake and absorption Currently on TPN, will adjust with TPN pharmacy for adequate electrolytes. Repleting in the interim Plan: - Repleting with IV KPhos/Multivitamins @ 60cc/h - Potassium 40meq - Repeat potassium level at 14:00 #Health Maintenance Disposition: Telemetry DVT prophylaxis: SCDs GI prophylaxis: Protonix 40 IV Diet: Dysphagia CODE STATUS: Full Case was discussed with Dr Kevin PGY-2 and attending physician, Dr Chris Hernandez MD, PGY1 Disclaimer: This note was dictated by speech recognition. Minor errors in encapsulator may be present due to voice recognition software. LPatient examined and case discussed with the team including attending physician. Note reviewed, I agree with the care plan as documented. Ms. Smith is a 59-year-old female with history of severe ulcerative colitis who was admitted with acute flare, colocolonic fistula and pneumoperitoneum requiring urgent laparotomy. Patient is status post subtotal colectomy day 8 postop. 01/20: Diet advanced to dysphagia 2 by general surgery, tolerating well and Ileostomy is functioning well. TPN and fat emulsion was turned off completely. Will encourage p.o. intake as tolerated, supplemental Ensure protein drinks changed to strawberry as requested by patient. will avoid chocolate drinks to as to not mask GIB. Plan: Continue to advance diet as tolerated, Dr. Crooks following closely, appreciate recommendations. Wound care ordered to manage surgical site closely. Physical therapy to continue working with the patient. - Marlon Kevin MD, PGY 2 Disclaimer: The document bellow may not be free of grammatical/phonetic/typographic errors due to use of voice recognition software. This does not dissuade from the commitment to providing health care with the patient's best interest in mind. L Attending Provider Attestation/Addendum I have examined the patient, reviewed labs and imaging findings, discussed the case with the resident(s), and reviewed entered orders. I agree with the plan of care as outlined in this note, with these additional summaries/recommendations: Patient seen at bedside. No acute overnight events. Today patient reports her appetite is improving. She was able to tolerate soft diet this morning although does report slightly increased abdominal pain after eating. Will continue to advance diet. Discontinue artificial nutrition. [employer] pump discontinued by general surgery and transition to oral Kabetogama plus morphine. Patient encouraged again to increase her ambulation as tolerated. Continue Unasyn to cover for intra-abdominal infection and pneumonia. IBD flare resolved and IV Solu-Medrol discontinued. Appreciate GI recs on mesalamine. Continue insulin sliding scale for hyperglycemia although does not appear to have a history of diabetes mellitus type 2. Hyperglycemia likely secondary to steroids. Patient updated on plan and in agreement. Repeat hematology and chemistry panel in AM. Encourage patient to continue to mobilize as tolerated. Dr. Chris MD
[2025-01-20] MEDS: ALBUMIN HUMAN 25% IVPB 12.5 GM/50 ML BTL IV (11:34)
[2025-01-20] MEDS: VIT B12/Vit C/FA (Nephrovite) TABLET 1 TAB PO (12:51)
[2025-01-20] MEDS: POTASSIUM PHOS 22.5 MMOL in SODIUM CHLORIDE 0.9% 500 ML 500 ML 82.778 MMOL IV (12:52)
[2025-01-20] MEDS: HYDROmorphone INJ 2 MG/ML VIAL 1 MG IVP ×3 (13:00→19:50)
[2025-01-20 14:28] LABS: Potassium 3.8 mMol/L (3.4-5.1)
--- NOTE | 2025-01-20 18:12 | PD.IMPROG ---
Documentation for date of: 01/20/25 Subjective Subjective Interval history: Patient evaluated Alert and oriented WBC count 17.2 Hemoglobin hematocrit 10.9 and 32.6 Physical therapy to start ambulating the patient Exam Vital Signs Temp Pulse Resp BP Pulse Ox O2 Del Method O2 Flow Rate 97.4 F 119 H 19 110/71 97 Room Air 2 01/20/25 16:00 01/20/25 17:45 01/20/25 16:00 01/20/25 16:00 01/20/25 16:00 01/20/25 16:00 01/20/25 12:00 FiO2 30 01/14/25 08:00 Objective Labs 01/20/25 05:24 01/20/25 14:06 Labs: Laboratory Results - last 24 hr 01/20/25 01/20/25 05:24 14:06 WBC 17.2 H RBC 3.71 L Hgb 10.9 L Hct 32.6 L MCV 88 MCH 29.4 MCHC 33.4 RDW Std Deviation 52.4 H Plt Count 276 D Neut % (Auto) 87 H Lymph % (Auto) 6 L [place] % (Auto) 2 Eos % (Auto) 0 Baso % (Auto) 0 Neut # (Auto) 14.9 H Lymph # (Auto) 1.0 [place] # (Auto) 0.3 Eos # (Auto) 0.1 Baso # (Auto) 0.1 Immature Gran # (Auto) 0.89 H Absolute Nucleated RBC 0.00 Immature Gran % 5 H Nucleated RBC % 0 Sodium 139 Potassium 3.1 L D 3.8 D Chloride 102 Carbon Dioxide 28.1 Anion Gap 9 BUN 11 Creatinine < 0.2 L Estim Creat Clear Calc 222.9 eGFR > 60 BUN/Creatinine Ratio 55 H Glucose 108 H Calculated Osmolality 277 Calcium 8.4 Corrected Calcium 9.4 Phosphorus 2.2 L Magnesium 1.8 Total Bilirubin 0.7 AST 32 ALT 57 H Alkaline Phosphatase 181 H D Total Protein 5.0 L Albumin 2.8 L Globulin 2.2 L Albumin/Globulin Ratio 1.3 Impressions Impression: # Status post subtotal colectomy for perforated colon as well as en bloc resection of the small bowel with perforations With ileostomy Physical therapy To help ambulate the patient Continue current management ABG Interpretation ABG results: 01/12/25 01/12/25 01/12/25 02:43 04:40 07:51 ABG pH 7.51 H 7.39 D 7.40 ABG pCO2 29 L 41 D 40 ABG pO2 235 H 145 H D 152 H ABG HCO3 23 25 25 ABG O2 Saturation 100 H 99 H 99 H ABG Base Excess 0 0 0 VBG pH VBG pCO2 VBG pO2 VBG Base Excess 01/13/25 01/15/25 04:17 11:51 ABG pH 7.32 L ABG pCO2 43 ABG pO2 137 H ABG HCO3 22 ABG O2 Saturation 99 H ABG Base Excess -4 L VBG pH 7.65 VBG pCO2 37 VBG pO2 75 H VBG Base Excess 18 H Assessment & Plan A&P Narrative cx neg. on zosyn for 3-4d post op or so pt appears to remain npo. changed to iv unasyn. can go with po augmentin if able to take enterally, Time Spent With Patient Time: Total time spent is greater than 50% in coordination of care (as documented) at patient's floor/unit and/or counseling patient:
[2025-01-21] VITALS (8 sets, daily range): BP systolic 102–119; BP diastolic 77–81; PULSE 103–128; RESP 14–28; TEMP 36.2–37.3; O2SAT 97–98
[2025-01-21] MEDS: AMPICILLIN/SULBAC INJ 3 GM in SODIUM CHLORIDE 0.9% (P) 100 ML IV ×4 (00:42→16:56)
[2025-01-21] MEDS: HYDROcodone/APAP 7.5/325 TABLET 1 TAB PO ×2 (00:42→14:48)
[2025-01-21] MEDS: HYDROmorphone INJ 2 MG/ML VIAL 1 MG IVP ×6 (01:27→22:37)
[2025-01-21 05:53] LABS: Basophils % (Auto) 0 % (0-2.5); Eosinophils # (Auto) 0.1 Thou/mm3 (0.0-0.5); Eosinophils % (Auto) 0 % (0-10); Hematocrit 30.9 % (36.0-46.0); Hemoglobin 10.1 g/dL (12.0-16.0); Immature Granulocytes % (Auto) 5 % (0-0); Immature Granulocytes Auto 1.14 Thou/mm3 (0.00-0.00); Lymphocytes # (Auto) 1.3 Thou/mm3 (1.0-4.8); Lymphocytes % (Auto) 6 % (10-50); Mean Corpuscular HGB Conc 32.7 g/dl (31.0-37.0); Mean Corpuscular Hemoglobin 29.3 pg (25.0-35.0); Mean Corpuscular Volume 90 fL (80-100); Monocytes # (Auto) 0.5 Thou/mm3 (0.0-0.8); Monocytes % (Auto) 2 % (0-12); Neutrophils # (Auto) 20.8 Thou/mm3 (1.8-7.7); Neutrophils % (Auto) 87 % (37-80); Nucleated Red Blood Cell % 0 /100 WBC (0); Platelet Count 299 Thou/mm3 (140-440); RDW Standard Deviation 53.8 fL (36.4-46.3); Red Blood Count 3.45 Miln/mm3 (4.00-5.20); White Blood Count 23.9 Thou/mm3 (3.6-11.0)
[2025-01-21 06:25] LABS: Alanine Aminotransferase 46 U/L (10-49); Albumin/Globulin Ratio 1.5 (1.2-2.2); Alkaline Phosphatase 175 U/L (46-116); Anion Gap 7 (7-16); Aspartate Amino Transferase 29 U/L (0-34); BUN/Creatinine Ratio 45 Ratio (12-20); Blood Urea Nitrogen 9 mg/dL (9-23); Calcium 8.5 mg/dL (8.3-10.6); Calcium (Corrected) 9.3 mg/dL (8.5-10.1); Carbon Dioxide 29.3 mMol/L (20.0-31.0); Chloride 100 mMol/L (98-107); Creatinine (Component) < 0.2 mg/dL (0.6-1.3); Estimated Creatinine Clearance 222.9 mL/min (>60); Glucose 70 mg/dL (74-106); Magnesium 1.8 mg/dL (1.6-2.6); Osmolality,Calculated 268 (275-295); Phosphorous 2.6 mg/dL (2.4-5.1); Potassium 3.3 mMol/L (3.4-5.1); Sodium 136 mMol/L (136-145); eGFR > 60 See Note
[2025-01-21] MEDS: THIAMINE INJ 100 MG/ML VIAL 2 ML IV (08:16)
[2025-01-21] MEDS: ENOXAPARIN SOD INJ 40 MG/0.4 ML SYRINGE SC (08:17)
[2025-01-21] MEDS: PANTOPRAZOLE INJ 40 MG VIAL IVP (08:17)
[2025-01-21] MEDS: ZINC SULFATE 220 MG CAPSULE PO (08:17)
[2025-01-21] MEDS: VIT B12/Vit C/FA (Nephrovite) TABLET 1 TAB PO (08:17)
[2025-01-21] MEDS: ASCORBIC ACID 250 MG TABLET 500 MG PO ×2 (08:17→20:33)
[2025-01-21] MEDS: ALBUMIN HUMAN 25% IVPB 25 GM/100 ML BTL IV (10:56)
[2025-01-21] MEDS: POTASSIUM CHLORIDE 20 mEq TABCR 40 MEQ PO (10:56)
[2025-01-21] MEDS: Magnesium Sulfate 2 GM Ivpb 2 GM/50 ML BAG IV (10:56)
[2025-01-21] MEDS: POT PHOS 15 mMol in NS 250 ML 15 MMOL/250 ML BAG 62.5 MMOL IV (11:14)
--- NOTE | 2025-01-21 12:58 | PD.RESPRO ---
Documentation for date of: 01/21/25 Subjective Subjective Interval history: Patient was seen and examined at bedside this AM. No acute events overnight. She is enjoying the strawberry flavored Ensure inbetween meals. She is tolerating diet, which was advanced to Dysphgaia 2 yesterday. She has adequate urine output and mentation is at baseline. She endorses resolution of abdominal pain, denies nausea or vomiting. Ileostomy is functioning well. Pain management with Sandia (1-6) and IV Dilaudid (7-10) only. Abdo pain occurs 30-40 mins after meals but improves with IV pain medicines. Labs reviewed, hypokalemia and hypophosphatemia noted, electrolytes have been repleted as well as albumin. WBC remain high, likely due to steroids, which have been discontinued. Central line to be discontinued today, as patient has been weaned off of TPN. Exam Vital Signs Temp Pulse Resp BP Pulse Ox O2 Del Method O2 Flow Rate 98.1 F 128 H 18 102/77 97 Room Air 2 01/21/25 12:00 01/21/25 12:00 01/21/25 12:00 01/21/25 12:01/21/25 12:00 01/21/25 12:00 01/20/25 19:45 FiO2 30 01/14/25 08:00 Narrative Exam Constitutional Alert, oriented x3 and comfortable HEENT Vision grossly intact. Patent nares. Trachea midline. RT IJ central line Respiratory Chest normal on inspection and clear to auscultation bilaterally. Cardiovascular S1 and S2 audible, RRR. No murmurs or carotid bruit. No gross JVD. Abdominal Soft and non tender to palpation in all quadrants. Incisional site clean, no discharge. Ileostomy functioning well. BS + Genitourinary No bladder tenderness, no flank pain. Normal to palpation. Musculoskeletal Extremities tone within normal limits. No LE edema. Neurological CN II - XII grossly intact. Extremity motor and sensation grossly intact. Skin Warm, dry and intact. No apparent lesions. Psychiatric Patient has a good affect, is cooperative. Objective Labs 01/22/25 05:08 01/22/25 05:08 Labs: Laboratory Results - last 24 hr 01/20/25 01/21/25 14:06 05:40 WBC 23.9 H D RBC 3.45 L Hgb 10.1 L Hct 30.9 L MCV 90 MCH 29.3 MCHC 32.7 RDW Std Deviation 53.8 H Plt Count 299 Neut % (Auto) 87 H Lymph % (Auto) 6 L [place] % (Auto) 2 Eos % (Auto) 0 Baso % (Auto) 0 Neut # (Auto) 20.8 H Lymph # (Auto) 1.3 [place] # (Auto) 0.5 Eos # (Auto) 0.1 Baso # (Auto) 0.0 Immature Gran # (Auto) 1.14 H Absolute Nucleated RBC 0.00 Immature Gran % 5 H Nucleated RBC % 0 Sodium 136 Potassium 3.8 D 3.3 L D Chloride 100 Carbon Dioxide 29.3 Anion Gap 7 BUN 9 Creatinine < 0.2 L Estim Creat Clear Calc 222.9 eGFR > 60 BUN/Creatinine Ratio 45 H Glucose 70 L Calculated Osmolality 268 L Calcium 8.5 Corrected Calcium 9.3 Phosphorus 2.6 Magnesium 1.8 Total Bilirubin 1.0 AST 29 ALT 46 Alkaline Phosphatase 175 H Total Protein 5.0 L Albumin 3.0 L Globulin 2.0 L Albumin/Globulin Ratio 1.5 ABG Interpretation ABG results: 01/12/25 01/12/25 01/12/25 02:43 04:40 07:51 ABG pH 7.51 H 7.39 D 7.40 ABG pCO2 29 L 41 D 40 ABG pO2 235 H 145 H D 152 H ABG HCO3 23 25 25 ABG O2 Saturation 100 H 99 H 99 H ABG Base Excess 0 0 0 VBG pH VBG pCO2 VBG pO2 VBG Base Excess 01/13/25 01/15/25 04:17 11:51 ABG pH 7.32 L ABG pCO2 43 ABG pO2 137 H ABG HCO3 22 ABG O2 Saturation 99 H ABG Base Excess -4 L VBG pH 7.65 VBG pCO2 37 VBG pO2 75 H VBG Base Excess 18 H Quality Measures Quality Measures VTE prophylaxis Assessment & Plan Assessment Current Active Medications: Generic Name Dose Route Start Last Admin Trade Name Freq PRN Reason Stop Dose Admin Hydrocodone Bitart/Acetaminophen 1 tab 01/20/25 07:08 01/21/25 00:42 Hydrocodone/Apap 7.5/325 Tablet PO 01/25/25 07:07 1 tab Q6HR PRN Administration PAIN 1-6 (mild-mod Albuterol/Ipratropium 3 ml 01/16/25 11:56 01/16/25 12:04 Albuterol/Ipratropium (Duoneb) Rt Bambi 3 Ml Nebu INH 02/15/25 14:59 3 ml Q4HRRT PRN Administration SHORTNESS OF BREATH OR WHEEZE Ascorbic Acid 500 mg 01/18/25 10:30 01/21/25 08:17 Ascorbic Acid 250 Mg Tablet PO 02/17/25 10:29 500 mg BID CAMERON Administration Dextrose 50 ml 01/13/25 06:35 Dextrose 50%-Water Inj 50 Ml Syringe IV 02/12/25 06:34 Q15MIN PRN BG <50 OR BG <70 & pt unresponsive Enoxaparin Sodium 40 mg 01/16/25 09:00 01/21/25 08:17 Enoxaparin Sod Inj 40 Mg/0.4 Ml Syringe SC 01/30/25 08:59 40 mg QDAY CAMERON Administration Glucagon 1 mg 01/13/25 06:35 Glucagon Inj 1 Mg Vial IM Q15MIN PRN BG <70, and no IV access Hydromorphone HCl 1 mg 01/20/25 07:08 01/21/25 12:36 Hydromorphone Inj 2 Mg/Ml Vial IVP 01/25/25 07:07 1 mg Q3HR PRN Administration PAIN SCALE 7-10 (Severe Ampicillin Sodium/Sulbactam 100 mls @ 200 mls/hr 01/17/25 18:00 01/21/25 11:14 Sodium 3 gm/ Sodium Chloride IV 01/24/25 17:59 200 mls/hr Q6HR CAMERON Administration Potassium Phosphate 15 mmol in 250 mls @ 62.5 mls/hr 01/21/25 10:07 01/21/25 11:14 Pot Phos 15 Mmol In Ns 250 Ml IV 01/21/25 14:06 62.5 mls/hr X1 ONE Administration Insulin Human Lispro 0 unit 01/21/25 11:30 01/21/25 12:51 Insulin Lispro (Admelog) 1 Unit/0.01 Ml Unit SC 02/20/25 11:29 Not Given AC [facility] Protocol Pantoprazole Sodium 40 mg 01/12/25 09:00 01/21/25 08:17 Pantoprazole Inj 40 Mg Vial IVP 02/11/25 08:59 40 mg QDAY CAMERON Administration Vitamin B Complex/Vit C/Folic Acid 1 tab 01/20/25 10:15 01/21/25 08:17 Vit B12/Vit C/Fa (Nephrovite) Tablet PO 02/19/25 10:14 1 tab QDAY CAMERON Administration Zinc Sulfate 220 mg 01/18/25 10:30 01/21/25 08:17 Zinc Sulfate 220 Mg Capsule PO 02/17/25 10:29 220 mg QDAY CAMERON Administration Plan Summary: The patient is a 59-year-old female with past medical history of inflammatory bowel disease/ulcerative colitis on chronic steroids that was recently discharged on 12/21/2024 for IBS flareup and admitted on 01/11 for pneumoperitoneum requiring emergent ex-lap. Found to have multiple areas of small and large bowel perforation with feculent peritonitis as well as coloenteric fistulas. Underwent subtotal colectomy on 01/11 and subsequently admitted to the ICU for further management. patient was downgraded to medical floors on 01/15 for furtehr management. 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 Crohn's - CT on admission: pneumoperitoneum and went to OR emergently. Found to have multiple bowel perforations in small and large intestine causing feculent peritonitis. - 01/11: First operation with bowel resection and second - 01/12: Blood cultures : Negative - 01/14: small bowel anastomosis with end ileostomy, cholecystectomy, and abdominal washout with closure. She was extubated in PACU and then returned to ICU - 01/16: Continue with Ice chips (ok with Surgeon), pain control, will wean down off dilaudid pump. Will need to wean off TPN at some point - 01/18: Started on clear liquid diet, tolerating well. Will work on weaning off [employer]BER and TPN. - 01/19: Diet advanced, no nausea/vomiting, minimal pain attributed to dairy intake. Will wean off RET[employer]BER and TPN - 01/20: Diet has been advanced to dysphagia [address] Daksha. Patient is tolerating current diet, no abdominal pain, nausea or vomiting. - 01/21: Tolerating dysphagia 2 diet well and drinking Ensure in between meals. Ileostomy is functioning well. Abdo pain occurs 30-40 mins after meals but improves with IV pain medicines. Plan: - Per ID recs, continue IV Unasyn 3g q6H (01/17 - ) - Dr Crooks following, appreciate input - Pain management with [place]ia (1-6) + IV Dilaudid (7-10) only. - GI to evaluate when to resume mesalamine - Physical therapy to continue working with the patient. Protein Calorie Malnutrition Hypokalemia The patient has had persistently low albumin level since prior to surgery. Likely due to decreased intake as well as losses 01/21: total protein 5.0 and albumin 2.8 -> 3 ; K = 3.3 Plan: - IV albumin 25 g x1 given - Continue oral diet - Ordered PO KCL 40mEq x1 + 15mmol IV KPhos x1 Dyspnea- resolved Cough- resolved Plan: - Incentive spirometry at bedside - Continue with Mucinex Syrup - Chest physiotherapy qD Reactive Leukocytosis WBC : 29 -> 24 -> 22 -> 23.9 Likely secondary to steroid use Plan: - Discontinued steroids as patient is on broad spectrum antibiotics. - Continue SSI every 6 hours - Discontinued Glargine, blood glucose within normal limits after TPN stopped. Normocytic anemia - resolved Presented with hemoglobin of 7.8 that improved to 9.2 after 4 units PRBC, and is also status-post 1 unit FFP - 01/15 : Hb 12.2 , wnl : Stable, continue to monitor Health Maintenance Disposition: Telemetry DVT prophylaxis: SCDs GI prophylaxis: Protonix 40 IV Diet: Dysphagia 2 CODE STATUS: Full code Case was discussed with attending physician, Dr Chris Kevin MD, PGY 2 Disclaimer: The document bellow may not be free of grammatical/phonetic/typographic errors due to use of voice recognition software. This does not dissuade from the commitment to providing health care with the patient's best interest in mind Attending Provider Attestation/Addendum I have examined the patient, reviewed labs and imaging findings, discussed the case with the resident(s), and reviewed entered orders. I agree with the plan of care as outlined in this note, with these additional summaries/recommendations: Patient seen at bedside. No acute overnight events. Patient reports her appetite is improving although still endorsing mild to moderate abdominal pain at times. Patient is currently tolerating dysphagia 2 diet and we will continue to advance as tolerated. S/P artificial nutrition. RET[employer] pump discontinued by general surgery and transition to oral Sandia plus morphine. We will continue to adjust pain regimen as needed. Patient encouraged again to increase her ambulation as tolerated. Continue Unasyn to cover for intra-abdominal infection and pneumonia. Noted increase in WBC count today although most likely realted to steroid use. IBD flare resolved and IV Solu-Medrol discontinued. Appreciate GI recs on mesalamine. Continue insulin sliding scale for hyperglycemia although does not appear to have a history of diabetes mellitus type 2. Hyperglycemia likely secondary to steroids. Patient updated on plan and in agreement. Repeat hematology and chemistry panel in AM. Encourage patient to continue to mobilize as tolerated. Dr. Chris MD
--- NOTE | 2025-01-21 17:49 | PC.NURSE ---
Patient wound dehiscence at 8th staple from the bottom of abdominal incision. 8th staple intact on left side of incision but not on the right side of the incision, MD Daksha notified at 12:42pm. Patient pain not managed with prescribed regimen. Patient consistently complains of 7-10/10 pain at incision side. MD Morales notified. Patient heart rate ST 130s and K 3.3, Andrew notified 1005.
--- NOTE | 2025-01-21 18:52 | PD.IMPROG ---
Documentation for date of: 01/21/25 Subjective Subjective Interval history: Rising WBC count is of some concern as patient is off the IV Solu-Medrol Patient is afebrile White count went up from 17.2-23.9 Will repeat CBC in the morning Active ileostomy Not eating much Exam Vital Signs Temp Pulse Resp BP Pulse Ox O2 Del Method O2 Flow Rate 97.2 F 118 H 28 H 105/81 97 Room Air 2 01/21/25 16:00 01/21/25 18:39 01/21/25 18:39 01/21/25 16:00 01/21/25 18:39 01/21/25 16:00 01/20/25 19:45 FiO2 30 01/14/25 08:00 Objective Labs 01/21/25 05:40 01/21/25 05:40 Labs: Laboratory Results - last 24 hr 01/21/25 05:40 WBC 23.9 H D RBC 3.45 L Hgb 10.1 L Hct 30.9 L MCV 90 MCH 29.3 MCHC 32.7 RDW Std Deviation 53.8 H Plt Count 299 Neut % (Auto) 87 H Lymph % (Auto) 6 L [place] % (Auto) 2 Eos % (Auto) 0 Baso % (Auto) 0 Neut # (Auto) 20.8 H Lymph # (Auto) 1.3 [place] # (Auto) 0.5 Eos # (Auto) 0.1 Baso # (Auto) 0.0 Immature Gran # (Auto) 1.14 H Absolute Nucleated RBC 0.00 Immature Gran % 5 H Nucleated RBC % 0 Sodium 136 Potassium 3.3 L D Chloride 100 Carbon Dioxide 29.3 Anion Gap 7 BUN 9 Creatinine < 0.2 L Estim Creat Clear Calc 222.9 eGFR > 60 BUN/Creatinine Ratio 45 H Glucose 70 L Calculated Osmolality 268 L Calcium 8.5 Corrected Calcium 9.3 Phosphorus 2.6 Magnesium 1.8 Total Bilirubin 1.0 AST 29 ALT 46 Alkaline Phosphatase 175 H Total Protein 5.0 L Albumin 3.0 L Globulin 2.0 L Albumin/Globulin Ratio 1.5 Impressions Impression: # Status post subtotal colectomy due to perforated colon and en bloc resection of the small intestine with ileostomy # Leukocytosis Continue current management ABG Interpretation ABG results: 01/12/25 01/12/25 01/12/25 02:43 04:40 07:51 ABG pH 7.51 H 7.39 D 7.40 ABG pCO2 29 L 41 D 40 ABG pO2 235 H 145 H D 152 H ABG HCO3 23 25 25 ABG O2 Saturation 100 H 99 H 99 H ABG Base Excess 0 0 0 VBG pH VBG pCO2 VBG pO2 VBG Base Excess 01/13/25 01/15/25 04:17 11:51 ABG pH 7.32 L ABG pCO2 43 ABG pO2 137 H ABG HCO3 22 ABG O2 Saturation 99 H ABG Base Excess -4 L VBG pH 7.65 VBG pCO2 37 VBG pO2 75 H VBG Base Excess 18 H Assessment & Plan A&P Narrative cx neg. on zosyn for 3-4d post op or so pt appears to remain npo. changed to iv unasyn. can go with po augmentin if able to take enterally, Time Spent With Patient Time: Total time spent is greater than 50% in coordination of care (as documented) at patient's floor/unit and/or counseling patient:
--- NOTE | 2025-01-21 19:27 | EKG_ITS ---
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
[2025-01-21 20:11] LABS: Magnesium 2.2 mg/dL (1.6-2.6); Potassium 4.2 mMol/L (3.4-5.1)
[2025-01-22] VITALS (8 sets, daily range): BP systolic 105–114; BP diastolic 68–82; PULSE 110–148; RESP 12–96; TEMP 36.1–36.9; O2SAT 96–98; BMI 21.4; BMI 11.0
[2025-01-22] MEDS: AMPICILLIN/SULBAC INJ 3 GM in SODIUM CHLORIDE 0.9% (P) 100 ML IV ×4 (00:17→18:37)
[2025-01-22] MEDS: HYDROmorphone INJ 2 MG/ML VIAL 1 MG IVP ×7 (01:26→21:06)
[2025-01-22 05:50] LABS: Basophils # (Auto) 0.1 Thou/mm3 (0.0-0.2); Basophils % (Auto) 0 % (0-2.5); Eosinophils % (Auto) 0 % (0-10); Hematocrit 31.3 % (36.0-46.0); Hemoglobin 10.3 g/dL (12.0-16.0); Immature Granulocytes % (Auto) 3 % (0-0); Immature Granulocytes Auto 0.72 Thou/mm3 (0.00-0.00); Lymphocytes # (Auto) 1.6 Thou/mm3 (1.0-4.8); Lymphocytes % (Auto) 7 % (10-50); Mean Corpuscular HGB Conc 32.9 g/dl (31.0-37.0); Mean Corpuscular Hemoglobin 29.3 pg (25.0-35.0); Mean Corpuscular Volume 89 fL (80-100); Monocytes # (Auto) 0.5 Thou/mm3 (0.0-0.8); Monocytes % (Auto) 2 % (0-12); Neutrophils # (Auto) 20.3 Thou/mm3 (1.8-7.7); Neutrophils % (Auto) 88 % (37-80); Nucleated Red Blood Cell % 0 /100 WBC (0); Platelet Count 359 Thou/mm3 (140-440); RDW Standard Deviation 53.4 fL (36.4-46.3); Red Blood Count 3.52 Miln/mm3 (4.00-5.20); White Blood Count 23.2 Thou/mm3 (3.6-11.0)
[2025-01-22 06:26] LABS: Alanine Aminotransferase 33 U/L (10-49); Albumin, Serum 3.3 gm/dL (3.4-4.8); Albumin/Globulin Ratio 1.7 (1.2-2.2); Alkaline Phosphatase 151 U/L (46-116); Anion Gap 7 (7-16); Aspartate Amino Transferase 16 U/L (0-34); BUN/Creatinine Ratio 35 Ratio (12-20); Bilirubin,Total 0.9 mg/dL (0.3-1.2); Blood Urea Nitrogen 7 mg/dL (9-23); Calcium 8.6 mg/dL (8.3-10.6); Calcium (Corrected) 9.2 mg/dL (8.5-10.1); Chloride 96 mMol/L (98-107); Creatinine (Component) 0.2 mg/dL (0.6-1.3); Estimated Creatinine Clearance 222.9 mL/min (>60); Glucose 77 mg/dL (74-106); Magnesium 2.1 mg/dL (1.6-2.6); Osmolality,Calculated 263 (275-295); Sodium 133 mMol/L (136-145); Total Protein 5.3 gm/dL (5.7-8.2); eGFR > 60 See Note
[2025-01-22] MEDS: ZINC SULFATE 220 MG CAPSULE PO (08:03)
[2025-01-22] MEDS: HYDROcodone/APAP 7.5/325 TABLET 1 TAB PO (08:04)
[2025-01-22] MEDS: VIT B12/Vit C/FA (Nephrovite) TABLET 1 TAB PO (08:04)
[2025-01-22] MEDS: ENOXAPARIN SOD INJ 40 MG/0.4 ML SYRINGE SC (08:04)
[2025-01-22] MEDS: ASCORBIC ACID 250 MG TABLET 500 MG PO ×2 (08:04→20:23)
[2025-01-22] MEDS: PANTOPRAZOLE INJ 40 MG VIAL IVP (08:04)
--- NOTE | 2025-01-22 08:06 | PD.SURPROG ---
Documentation for date of: 01/22/25 Subjective Subjective Narrative: Patient is seen and examined. Her pain is improving. She is tolerating diet without nausea and vomiting. Exam Vital Signs Temp Pulse Resp BP Pulse Ox O2 Del Method O2 Flow Rate 97.7 F 110 H 12 109/78 96 Room Air 2 01/22/25 04:00 01/22/25 04:00 01/22/25 04:00 01/22/25 04:00 01/22/25 04:00 01/22/25 04:00 01/22/25 00:00 FiO2 30 01/14/25 08:00 Constitutional Constitutional: no acute distress Routine Abdominal Exam Comments: Abdomen is soft and nondistended. Incision is intact and clean with minimal clear drainage from the inferior aspect. No evidence of infection. Ileostomy is functioning Assessment & Plan Assessment Additional comments: POD#10 s/p subtotal colectomy with en-bloc partial small bowel resection POD#8 s/p Re-exploration, SB anastomosis, cholecystectomy and end ileostomy Plan She is tolerating soft diet continue Ensure supplements. Central line was removed. Patient is encouraged to increase ambulation, will consult physical therapy Procedures Procedures Exploratory laparotomy, small bowel anastomosis with end ileostomy Cholecystectomy Abdominal washout and closure
--- NOTE | 2025-01-22 10:16 | PD.IDPROG ---
Subjective Subjective Interval history: doing ok on unasyn. on thru wed Exam Vital Signs Temp Pulse Resp BP Pulse Ox O2 Del Method O2 Flow Rate 97.2 F 119 H 18 105/82 96 Room Air 2 01/22/25 08:00 01/22/25 08:51 01/22/25 08:51 01/22/25 08:00 01/22/25 08:51 01/22/25 08:00 01/22/25 00:00 FiO2 30 01/14/25 08:00 Narrative Exam limited eval Objective - Internal Medicine Labs 01/22/25 05:08 01/22/25 05:08 Labs: Laboratory Results - last 24 hr 01/21/25 01/22/25 19:40 05:08 WBC 23.2 H RBC 3.52 L Hgb 10.3 L Hct 31.3 L MCV 89 MCH 29.3 MCHC 32.9 RDW Std Deviation 53.4 H Plt Count 359 D Neut % (Auto) 88 H Lymph % (Auto) 7 L [place] % (Auto) 2 Eos % (Auto) 0 Baso % (Auto) 0 Neut # (Auto) 20.3 H Lymph # (Auto) 1.6 [place] # (Auto) 0.5 Eos # (Auto) 0.0 Baso # (Auto) 0.1 Immature Gran # (Auto) 0.72 H Absolute Nucleated RBC 0.00 Immature Gran % 3 H Nucleated RBC % 0 Sodium 133 L Potassium 4.2 D 4.0 Chloride 96 L Carbon Dioxide 30.0 Anion Gap 7 BUN 7 L Creatinine 0.2 L Estim Creat Clear Calc 222.9 eGFR > 60 BUN/Creatinine Ratio 35 H Glucose 77 Calculated Osmolality 263 L Lactic Acid 1.0 Calcium 8.6 Corrected Calcium 9.2 Magnesium 2.2 2.1 Total Bilirubin 0.9 AST 16 ALT 33 Alkaline Phosphatase 151 H D Total Protein 5.3 L Albumin 3.3 L Globulin 2.0 L Albumin/Globulin Ratio 1.7 Procalcitonin 0.20 ABG Interpretation ABG results: 01/12/25 01/12/25 01/12/25 02:43 04:40 07:51 ABG pH 7.51 H 7.39 D 7.40 ABG pCO2 29 L 41 D 40 ABG pO2 235 H 145 H D 152 H ABG HCO3 23 25 25 ABG O2 Saturation 100 H 99 H 99 H ABG Base Excess 0 0 0 VBG pH VBG pCO2 VBG pO2 VBG Base Excess 01/13/25 01/15/25 04:17 11:51 ABG pH 7.32 L ABG pCO2 43 ABG pO2 137 H ABG HCO3 22 ABG O2 Saturation 99 H ABG Base Excess -4 L VBG pH 7.65 VBG pCO2 37 VBG pO2 75 H VBG Base Excess 18 H Assessment & Plan A&P Narrative cx neg. on zosyn for 3-4d post op or so pt appears to remain npo. changed to iv unasyn. can go with po augmentin if able to take enterally, when taking enterally can finish with po augmentin, but finishes on wed Time Spent With Patient Time: Total time spent is greater than 50% in coordination of care (as documented) at patient's floor/unit and/or counseling patient:
--- NOTE | 2025-01-22 13:49 | PD.RESPRO ---
Documentation for date of: 01/22/25 Subjective Subjective Interval history: Patient seen at bedside. No acute overnight events. She still reports some pain, before and after meals but is tolerating feeding without nausea or vomiting. Pain management on [place] 5 mg, increase to 10 mg as well as IV Dilaudid every 2 hours. Incision sites examined, no dehiscence. Evaluated by ID today, will continue IV Unasyn until Wednesday. 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 Eyes open, symmetrical, & clear. CARDIO: No chest pain on palpation. Heart RRR, no obvious murmurs PULM: No noted coughing/dyspnea. Lungs CTA B/L GI: Abdomen soft, nondistended, no pain on palpation. Incisional site clean, no discharge. Ileostomy functioning well. 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 SKIN/MSK/EXT: No wounds/rashes/edema/amputations, no pain on palpation. Pedal pulses present B/L Objective Labs 01/23/25 08:17 01/23/25 08:17 Labs: Laboratory Results - last 24 hr 01/21/25 01/22/25 19:40 05:08 WBC 23.2 H RBC 3.52 L Hgb 10.3 L Hct 31.3 L MCV 89 MCH 29.3 MCHC 32.9 RDW Std Deviation 53.4 H Plt Count 359 D Neut % (Auto) 88 H Lymph % (Auto) 7 L [place] % (Auto) 2 Eos % (Auto) 0 Baso % (Auto) 0 Neut # (Auto) 20.3 H Lymph # (Auto) 1.6 [place] # (Auto) 0.5 Eos # (Auto) 0.0 Baso # (Auto) 0.1 Immature Gran # (Auto) 0.72 H Absolute Nucleated RBC 0.00 Immature Gran % 3 H Nucleated RBC % 0 Sodium 133 L Potassium 4.2 D 4.0 Chloride 96 L Carbon Dioxide 30.0 Anion Gap 7 BUN 7 L Creatinine 0.2 L Estim Creat Clear Calc 222.9 eGFR > 60 BUN/Creatinine Ratio 35 H Glucose 77 Calculated Osmolality 263 L Lactic Acid 1.0 Calcium 8.6 Corrected Calcium 9.2 Magnesium 2.2 2.1 Total Bilirubin 0.9 AST 16 ALT 33 Alkaline Phosphatase 151 H D Total Protein 5.3 L Albumin 3.3 L Globulin 2.0 L Albumin/Globulin Ratio 1.7 Procalcitonin 0.20 ABG Interpretation ABG results: 01/12/25 01/12/25 01/12/25 02:43 04:40 07:51 ABG pH 7.51 H 7.39 D 7.40 ABG pCO2 29 L 41 D 40 ABG pO2 235 H 145 H D 152 H ABG HCO3 23 25 25 ABG O2 Saturation 100 H 99 H 99 H ABG Base Excess 0 0 0 VBG pH VBG pCO2 VBG pO2 VBG Base Excess 01/13/25 01/15/25 04:17 11:51 ABG pH 7.32 L ABG pCO2 43 ABG pO2 137 H ABG HCO3 22 ABG O2 Saturation 99 H ABG Base Excess -4 L VBG pH 7.65 VBG pCO2 37 VBG pO2 75 H VBG Base Excess 18 H Quality Measures Quality Measures VTE prophylaxis Assessment & Plan Assessment Current Active Medications: Generic Name Dose Route Start Last Admin Trade Name Freq PRN Reason Stop Dose Admin Hydrocodone Bitart/Acetaminophen 1 tab 01/22/25 09:43 Hydrocodone/Apap 10/325 Tab PO 01/27/25 09:42 Q6HR PRN Pain 1-6 Albuterol/Ipratropium 3 ml 01/16/25 11:56 01/16/25 12:04 Albuterol/Ipratropium (Duoneb) Rt Bambi 3 Ml Nebu INH 02/15/25 14:59 3 ml Q4HRRT PRN Administration SHORTNESS OF BREATH OR WHEEZE Ascorbic Acid 500 mg 01/18/25 10:30 01/22/25 08:04 Ascorbic Acid 250 Mg Tablet PO 02/17/25 10:29 500 mg BID CAMERON Administration Dextrose 50 ml 01/13/25 06:35 Dextrose 50%-Water Inj 50 Ml Syringe IV 02/12/25 06:34 Q15MIN PRN BG <50 OR BG <70 & pt unresponsive Enoxaparin Sodium 40 mg 01/16/25 09:00 01/22/25 08:04 Enoxaparin Sod Inj 40 Mg/0.4 Ml Syringe SC 01/30/25 08:59 40 mg QDAY CAEMRON Administration Glucagon 1 mg 01/13/25 06:35 Glucagon Inj 1 Mg Vial IM Q15MIN PRN BG <70, and no IV access Hydromorphone HCl 1 mg 01/21/25 19:33 01/22/25 12:58 Hydromorphone Inj 2 Mg/Ml Vial IVP 01/26/25 19:29 1 mg Q2HR PRN Administration PAIN SCALE 7-10 (Severe Ampicillin Sodium/Sulbactam 100 mls @ 200 mls/hr 01/17/25 18:00 01/22/25 11:45 Sodium 3 gm/ Sodium Chloride IV 01/24/25 17:59 200 mls/hr Q6HR CAMERON Administration Insulin Human Lispro 0 unit 01/21/25 11:30 01/22/25 11:44 Insulin Lispro (Admelog) 1 Unit/0.01 Ml Unit SC 02/20/25 11:29 Not Given AC [facility] Protocol Naloxone HCl 1 mg 01/21/25 19:28 Naloxone Inj 0.4 Mg/Ml Vial IV Q3M PRN OPIATE REVERSAL Pantoprazole Sodium 40 mg 01/12/25 09:00 01/22/25 08:04 Pantoprazole Inj 40 Mg Vial IVP 02/11/25 08:59 40 mg QDAY CAMERON Administration Vitamin B Complex/Vit C/Folic Acid 1 tab 01/20/25 10:15 01/22/25 08:04 Vit B12/Vit C/Fa (Nephrovite) Tablet PO 02/19/25 10:14 1 tab QDAY CAMERON Administration Zinc Sulfate 220 mg 01/18/25 10:30 01/22/25 08:03 Zinc Sulfate 220 Mg Capsule PO 02/17/25 10:29 220 mg QDAY CAMERON Administration Plan Summary: The patient is a 59-year-old female with past medical history of inflammatory bowel disease/ulcerative colitis on chronic steroids that was recently discharged on 12/21/2024 for IBS flareup and admitted on 01/11 for pneumoperitoneum requiring emergent ex-lap. Found to have multiple areas of small and large bowel perforation with feculent peritonitis as well as coloenteric fistulas. Underwent subtotal colectomy on 01/11 and subsequently admitted to the ICU for further management. patient was downgraded to medical floors on 01/15 for furtehr management. 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 Crohn's - CT on admission: pneumoperitoneum and went to OR emergently. Found to have multiple bowel perforations in small and large intestine causing feculent peritonitis. - 01/11: First operation with bowel resection and second - 01/12: Blood cultures : Negative - 01/14: small bowel anastomosis with end ileostomy, cholecystectomy, and abdominal washout with closure. She was extubated in PACU and then returned to ICU - 01/16: Continue with Ice chips (ok with Surgeon), pain control, will wean down off dilaudid pump. Will need to wean off TPN at some point - 01/18: Started on clear liquid diet, tolerating well. Will work on weaning off [employer] and TPN. - 01/19: Diet advanced, no nausea/vomiting, minimal pain attributed to dairy intake. Will wean off [employer] and TPN - 01/20: Diet has been advanced to dysphagia [address] Crooks. Patient is tolerating current diet, no abdominal pain, nausea or vomiting. - 01/21: Tolerating dysphagia 2 diet well and drinking Ensure in between meals. Ileostomy is functioning well. Abdo pain occurs 30-40 mins after meals but improves with IV pain medicines. - 01/22: She still reports some pain, before and after meals but is tolerating feeding without nausea or vomiting. Pain management on [place] Plan: - Per ID recs, continue IV Unasyn 3g q6H (01/17 -01/24 ) - Dr Crooks following, appreciate input - Pain management with [place] (1-6) + IV Dilaudid (7-10) only. - GI to evaluate when to resume mesalamine - Physical therapy to continue working with the patient. #Protein Calorie Malnutrition-improving #Hypokalemia -resolved The patient has had persistently low albumin level since prior to surgery. Likely due to decreased intake as well as losses 01/22-total protein 5.3, albumin 3.3 Plan: - IV albumin 25 g x1 given - Continue oral diet #Dyspnea- resolved #Cough- resolved Plan: - Incentive spirometry at bedside - Continue with Mucinex Syrup - Chest physiotherapy qD #Reactive Leukocytosis WBC : 29 -> 24 -> 22 -> 23.9 Likely secondary to steroid use Plan: - Discontinued steroids as patient is on broad spectrum antibiotics. - Continue SSI every 6 hours - Discontinued Glargine, blood glucose within normal limits after TPN stopped. #Normocytic anemia - resolved Presented with hemoglobin of 7.8 that improved to 9.2 after 4 units PRBC, and is also status-post 1 unit FFP - 01/15 : Hb 12.2 , wnl : Stable, continue to monitor Health Maintenance Disposition: Telemetry DVT prophylaxis: SCDs GI prophylaxis: Protonix 40 IV Diet: Dysphagia 3 CODE STATUS: Full code Case was discussed with Dr Kevin PGY-2 and attending physician, Dr Chris Hernandez MD PGY-1 Disclaimer: This note was dictated by speech recognition. Minor errors in diagnostic tech may be present due to voice recognition software. Patient examined and case discussed with the team including attending physician. Note reviewed, I agree with the care plan as documented. Ms. Smith is a 59-year-old female with history of severe ulcerative colitis who was admitted with acute flare, colocolonic fistula and pneumoperitoneum requiring urgent laparotomy. Patient is status post subtotal colectomy day 8 postop. 01/23: Tolerating dysphagia 3 diet, supplemental Ensure protein drinks. Pain is controlled with oral [place] and IV Dilaudid. Dr. Crooks following closely, appreciate recommendations. Wound care ordered to manage surgical site closely. Physical therapy to continue working with the patient, ambulation encouraged. Anticipate DC in next 48 - 72 hours. - Marlon Kevin MD, PGY 2 Disclaimer: The document bellow may not be free of grammatical/phonetic/typographic errors due to use of voice recognition software. This does not dissuade from the commitment to providing health care with the patient's best interest in mind. Attending Provider Attestation/Addendum I have examined the patient, reviewed labs and imaging findings, discussed the case with the resident(s), and reviewed entered orders. I agree with the plan of care as outlined in this note, with these additional summaries/recommendations: Patient seen at bedside. No acute overnight events. Today patient reports her appetite continues to improve. She is tolerating dysphagia 3 diet well. Patient still endorses abdominal pain but reports it is controlled with oral [place] and IV Dilaudid. We will continue to wean from IV pain medicines before patient can be safely discharged. Patient's WBCs did slightly decrease today which is a good sign and we will continue IV Unasyn for now. Infectious disease following. Antibiotics to end on 01/24/2025. Continue physical therapy and ambulation as tolerated. Continue insulin sliding scale for hyperglycemia most likely secondary to IV steroids and no history of diabetes. Appreciate gastroenterology recommendations on inflammatory bowel disease medications moving forward. Repeat hematology and chemistry panel in AM. Dr. Chris MD
--- NOTE | 2025-01-22 17:45 | PC.NURSE ---
Dr. Katz made aware that pt sustaining NST 130-135 bpm; Dr upton with unknown etiology. No new orders at this time.
--- NOTE | 2025-01-22 19:53 | PD.IMPROG ---
Documentation for date of: 01/22/25 Subjective Subjective Interval history: Patient evaluated WBC count 23.2 Although eating but poor p.o. intake Ileostomy functional Exam Vital Signs Temp Pulse Resp BP Pulse Ox O2 Del Method O2 Flow Rate 98.2 F 123 H 19 114/72 97 Room Air 2 01/22/25 16:00 01/22/25 16:00 01/22/25 16:00 01/22/25 16:00 01/22/25 16:00 01/22/25 16:00 01/22/25 00:00 FiO2 30 01/14/25 08:00 Objective Labs 01/22/25 05:08 01/22/25 05:08 Labs: Laboratory Results - last 24 hr 01/21/25 01/22/25 19:40 05:08 WBC 23.2 H RBC 3.52 L Hgb 10.3 L Hct 31.3 L MCV 89 MCH 29.3 MCHC 32.9 RDW Std Deviation 53.4 H Plt Count 359 D Neut % (Auto) 88 H Lymph % (Auto) 7 L [place] % (Auto) 2 Eos % (Auto) 0 Baso % (Auto) 0 Neut # (Auto) 20.3 H Lymph # (Auto) 1.6 [place] # (Auto) 0.5 Eos # (Auto) 0.0 Baso # (Auto) 0.1 Immature Gran # (Auto) 0.72 H Absolute Nucleated RBC 0.00 Immature Gran % 3 H Nucleated RBC % 0 Sodium 133 L Potassium 4.2 D 4.0 Chloride 96 L Carbon Dioxide 30.0 Anion Gap 7 BUN 7 L Creatinine 0.2 L Estim Creat Clear Calc 222.9 eGFR > 60 BUN/Creatinine Ratio 35 H Glucose 77 Calculated Osmolality 263 L Lactic Acid 1.0 Calcium 8.6 Corrected Calcium 9.2 Magnesium 2.2 2.1 Total Bilirubin 0.9 AST 16 ALT 33 Alkaline Phosphatase 151 H D Total Protein 5.3 L Albumin 3.3 L Globulin 2.0 L Albumin/Globulin Ratio 1.7 Procalcitonin 0.20 Impressions Impression: # Colonic perforations multiple requiring subtotal colectomy with en bloc resection of small bowel status post ileostomy # Leukocytosis # Poor p.o. intake continue to encourage p.o. intake # Ambulate the patient physical therapy consult was instituted ABG Interpretation ABG results: 01/12/25 01/12/2525 02:43 04:40 07:51 ABG pH 7.51 H 7.39 D 7.40 ABG pCO2 29 L 41 D 40 ABG pO2 235 H 145 H D 152 H ABG HCO3 23 25 25 ABG O2 Saturation 100 H 99 H 99 H ABG Base Excess 0 0 0 VBG pH VBG pCO2 VBG pO2 VBG Base Excess 01/13/25 01/15/25 04:17 11:51 ABG pH 7.32 L ABG pCO2 43 ABG pO2 137 H ABG HCO3 22 ABG O2 Saturation 99 H ABG Base Excess -4 L VBG pH 7.65 VBG pCO2 37 VBG pO2 75 H VBG Base Excess 18 H Assessment & Plan A&P Narrative cx neg. on zosyn for 3-4d post op or so pt appears to remain npo. changed to iv unasyn. can go with po augmentin if able to take enterally, when taking enterally can finish with po augmentin, but finishes on wed Time Spent With Patient Time: Total time spent is greater than 50% in coordination of care (as documented) at patient's floor/unit and/or counseling patient:
[2025-01-23] VITALS (9 sets, daily range): BP systolic 99–113; BP diastolic 62–84; PULSE 110–130; RESP 15–96; TEMP 36.5–37.6; O2SAT 95–98; BMI 31.2; BMI 11.0
[2025-01-23] MEDS: AMPICILLIN/SULBAC INJ 3 GM in SODIUM CHLORIDE 0.9% (P) 100 ML IV ×4 (00:11→17:16)
[2025-01-23] MEDS: HYDROmorphone INJ 2 MG/ML VIAL 1 MG IVP ×6 (00:23→19:17)
[2025-01-23] MEDS: HYDROcodone/APAP 10/325 TAB PO ×2 (05:31→11:34)
[2025-01-23] MEDS: VIT B12/Vit C/FA (Nephrovite) TABLET 1 TAB PO (08:08)
[2025-01-23] MEDS: PANTOPRAZOLE INJ 40 MG VIAL IVP ×2 (08:09)
[2025-01-23] MEDS: ZINC SULFATE 220 MG CAPSULE PO (08:09)
[2025-01-23] MEDS: ASCORBIC ACID 250 MG TABLET 500 MG PO ×2 (08:09→20:19)
[2025-01-23] MEDS: ENOXAPARIN SOD INJ 40 MG/0.4 ML SYRINGE SC (08:10)
[2025-01-23 08:58] LABS: Basophils # (Auto) 0.1 Thou/mm3 (0.0-0.2); Basophils % (Auto) 0 % (0-2.5); Eosinophils # (Auto) 0.1 Thou/mm3 (0.0-0.5); Eosinophils % (Auto) 0 % (0-10); Hematocrit 29.9 % (36.0-46.0); Hemoglobin 9.8 g/dL (12.0-16.0); Immature Granulocytes % (Auto) 2 % (0-0); Immature Granulocytes Auto 0.61 Thou/mm3 (0.00-0.00); Lymphocytes # (Auto) 1.3 Thou/mm3 (1.0-4.8); Lymphocytes % (Auto) 5 % (10-50); Mean Corpuscular HGB Conc 32.8 g/dl (31.0-37.0); Mean Corpuscular Hemoglobin 28.9 pg (25.0-35.0); Mean Corpuscular Volume 88 fL (80-100); Monocytes # (Auto) 0.5 Thou/mm3 (0.0-0.8); Monocytes % (Auto) 2 % (0-12); Neutrophils # (Auto) 22.5 Thou/mm3 (1.8-7.7); Neutrophils % (Auto) 90 % (37-80); Nucleated Red Blood Cell % 0 /100 WBC (0); Platelet Count 484 Thou/mm3 (140-440); RDW Standard Deviation 52.2 fL (36.4-46.3); Red Blood Count 3.39 Miln/mm3 (4.00-5.20)
[2025-01-23 09:19] LABS: Albumin, Serum 3.2 gm/dL (3.4-4.8); Anion Gap 8 (7-16); BUN/Creatinine Ratio 45 Ratio (12-20); Blood Urea Nitrogen 9 mg/dL (9-23); Calcium 8.3 mg/dL (8.3-10.6); Calcium (Corrected) 8.9 mg/dL (8.5-10.1); Carbon Dioxide 30.7 mMol/L (20.0-31.0); Chloride 92 mMol/L (98-107); Creatinine (Component) 0.2 mg/dL (0.6-1.3); Estimated Creatinine Clearance 277.6 mL/min (>60); Glucose 115 mg/dL (74-106); Magnesium 1.7 mg/dL (1.6-2.6); Osmolality,Calculated 262 (275-295); Phosphorous 2.5 mg/dL (2.4-5.1); Potassium 3.5 mMol/L (3.4-5.1); Sodium 131 mMol/L (136-145); eGFR > 60 See Note
[2025-01-23] MEDS: POTASSIUM CHLORIDE 20 mEq TABCR 40 MEQ PO (10:28)
--- NOTE | 2025-01-23 11:47 | PD.SURPROG ---
Documentation for date of: 01/23/25 Subjective Subjective Narrative: Patient is seen and examined. She is feeling better. She is tolerating diet without nausea or vomiting Exam Vital Signs Temp Pulse Resp BP Pulse Ox O2 Del Method O2 Flow Rate 98.6 F 122 H 20 113/84 97 Room Air 2 01/23/25 08:00 01/23/25 08:00 01/23/25 08:00 01/23/25 08:00 01/23/25 08:00 01/23/25 08:00 01/22/25 00:00 FiO2 30 01/14/25 08:00 Constitutional Constitutional: no acute distress Routine Abdominal Exam Comments: Abdomen is soft with not distended. Incision is clean, dry and intact. Ileostomy is functioning Assessment & Plan Assessment Additional comments: POD#11 s/p subtotal colectomy with en-bloc partial small bowel resection POD#9 s/p Re-exploration, SB anastomosis, cholecystectomy and end ileostomy Plan Clinically patient is improving, tolerating diet and ileostomy is functioning. However, her WBC keeps climbing, etiology is yet to be determined. Procedures Procedures Exploratory laparotomy, small bowel anastomosis with end ileostomy Cholecystectomy Abdominal washout and closure
--- NOTE | 2025-01-23 13:57 | PD.RESPRO ---
Documentation for date of: 01/23/25 Subjective Subjective Interval history: Patient seen at bedside. No acute overnight events. Reports that she is doing significantly better, had a decent sized breakfast this morning, tolerated well-no abdominal pain right after, no nausea or vomiting. On examination, abdomen is slightly tender. Ileostomy functioning well. Labs reviewed, WBC uptrending to 25. Per ID recs, will continue IV Unasyn. Patient working with physical therapy, progress noted. Will slowly wean off IV pain medications Exam Vital Signs Temp Pulse Resp BP Pulse Ox O2 Del Method O2 Flow Rate 98.0 F 119 H 17 100/75 97 Room Air 2 01/23/25 12:00 01/23/25 12:00 01/23/25 12:00 01/23/25 12:00 01/23/25 12:00 01/23/25 12:00 01/22/25 00:00 FiO2 30 01/14/25 08:00 Narrative Exam GENERAL: AAOX3 NEURO: DEMONSTRATOR SALES grossly intact, moves extremities x4 HEENT: Moist mucosa. Eyes open, symmetrical, & clear. CARDIO: No chest pain on palpation. Heart RRR, no obvious murmurs PULM: No noted coughing/dyspnea. Lungs CTA B/L GI: Abdomen soft, nondistended, no pain on palpation. Incisional site clean, no discharge. Ileostomy functioning well. Normoactive bowel sounds URO/CONCRETE PRODUCTS DISPATCHER:: No further abnormalities noted. SKIN/MSK/EXT: No wounds/rashes/edema/amputations, no pain on palpation. Pedal pulses present B/L Objective Labs 01/23/25 08:17 01/23/25 08:17 Labs: Laboratory Results - last 24 hr 01/23/25 08:17 WBC 25.0 H RBC 3.39 L Hgb 9.8 L Hct 29.9 L MCV 88 MCH 28.9 MCHC 32.8 RDW Std Deviation 52.2 H Plt Count 484 H D Neut % (Auto) 90 H Lymph % (Auto) 5 L [place] % (Auto) 2 Eos % (Auto) 0 Baso % (Auto) 0 Neut # (Auto) 22.5 H Lymph # (Auto) 1.3 [place] # (Auto) 0.5 Eos # (Auto) 0.1 Baso # (Auto) 0.1 Immature Gran # (Auto) 0.61 H Absolute Nucleated RBC 0.00 Immature Gran % 2 H Nucleated RBC % 0 Sodium 131 L Potassium 3.5 D Chloride 92 L Carbon Dioxide 30.7 Anion Gap 8 BUN 9 Creatinine 0.2 L Estim Creat Clear Calc 277.6 eGFR > 60 BUN/Creatinine Ratio 45 H Glucose 115 H Calculated Osmolality 262 L Calcium 8.3 Corrected Calcium 8.9 Phosphorus 2.5 Magnesium 1.7 Albumin 3.2 L ABG Interpretation ABG results: 01/12/25 01/12/25 01/12/25 02:43 04:40 07:51 ABG pH 7.51 H 7.39 D 7.40 ABG pCO2 29 L 41 D 40 ABG pO2 235 H 145 H D 152 H ABG HCO3 23 25 25 ABG O2 Saturation 100 H 99 H 99 H ABG Base Excess 0 0 0 VBG pH VBG pCO2 VBG pO2 VBG Base Excess 01/13/25 01/15/25 04:17 11:51 ABG pH 7.32 L ABG pCO2 43 ABG pO2 137 H ABG HCO3 22 ABG O2 Saturation 99 H ABG Base Excess -4 L VBG pH 7.65 VBG pCO2 37 VBG pO2 75 H VBG Base Excess 18 H Quality Measures Quality Measures VTE prophylaxis Assessment & Plan Assessment Current Active Medications: Generic Name Dose Route Start Last Admin Trade Name Freq PRN Reason Stop Dose Admin Hydrocodone Bitart/Acetaminophen 1 tab 01/22/25 09:43 01/23/25 11:34 Hydrocodone/Apap 10/325 Tab PO 01/27/25 09:42 1 tab Q6HR PRN Administration Pain 1-6 Albuterol/Ipratropium 3 ml 01/16/25 11:56 01/16/25 12:04 Albuterol/Ipratropium (Duoneb) Rt Bambi 3 Ml Nebu INH 02/15/25 14:59 3 ml Q4HRRT PRN Administration SHORTNESS OF BREATH OR WHEEZE Ascorbic Acid 500 mg 01/18/25 10:30 01/23/25 08:09 Ascorbic Acid 250 Mg Tablet PO 02/17/25 10:29 500 mg BID CAMERON Administration Dextrose 50 ml 01/13/25 06:35 Dextrose 50%-Water Inj 50 Ml Syringe IV 02/12/25 06:34 Q15MIN PRN BG <50 OR BG <70 & pt unresponsive Enoxaparin Sodium 40 mg 01/16/25 09:00 01/23/25 08:10 Enoxaparin Sod Inj 40 Mg/0.4 Ml Syringe SC 01/30/25 08:59 40 mg QDAY CAMERON Administration Glucagon 1 mg 01/13/25 06:35 Glucagon Inj 1 Mg Vial IM Q15MIN PRN BG <70, and no IV access Hydromorphone HCl 1 mg 01/23/25 09:46 01/23/25 12:33 Hydromorphone Inj 2 Mg/Ml Vial IVP 01/26/25 19:32 1 mg Q3HR PRN Administration PAIN SCALE 7-10 (Severe Ampicillin Sodium/Sulbactam 100 mls @ 200 mls/hr 01/17/25 18:00 01/23/25 12:33 Sodium 3 gm/ Sodium Chloride IV 01/24/25 17:59 200 mls/hr Q6HR CAMERON Administration Insulin Human Lispro 0 unit 01/21/25 11:30 01/23/25 07:32 Insulin Lispro (Admelog) 1 Unit/0.01 Ml Unit SC 02/20/25 11:29 Not Given AC [facility] Protocol Naloxone HCl 1 mg 01/21/25 19:28 Naloxone Inj 0.4 Mg/Ml Vial IV Q3M PRN OPIATE REVERSAL Pantoprazole Sodium 40 mg 01/12/25 09:00 01/23/25 08:09 Pantoprazole Inj 40 Mg Vial IVP 02/11/25 08:59 40 mg QDAY CAMERON Administration Vitamin B Complex/Vit C/Folic Acid 1 tab 01/20/25 10:15 01/23/25 08:08 Vit B12/Vit C/Fa (Nephrovite) Tablet PO 02/19/25 10:14 1 tab QDAY CAMERON Administration Zinc Sulfate 220 mg 01/18/25 10:30 01/23/25 08:09 Zinc Sulfate 220 Mg Capsule PO 02/17/25 10:29 220 mg QDAY CAMERON Administration Plan Summary: The patient is a 59-year-old female with past medical history of inflammatory bowel disease/ulcerative colitis on chronic steroids that was recently discharged on 12/21/2024 for IBS flareup and admitted on 01/11 for pneumoperitoneum requiring emergent ex-lap. Found to have multiple areas of small and large bowel perforation with feculent peritonitis as well as coloenteric fistulas. Underwent subtotal colectomy on 01/11 and subsequently admitted to the ICU for further management. patient was downgraded to medical floors on 01/15 for furtehr management. #Acute abdomen 2/2 Severe Peritonitis - resolved #POD#11 s/p subtotal colectomy with en-bloc partial small bowel resection #POD#8 s/p Re-exploration, SB anastomosis, cholecystectomy and end ileostomy in the setting of #Inflammatory Bowel Disease #Ulcerative Colitis, fistulizing - likely distributive in setting of feculent peritonitis secondary to enterocutaneous fistulas secondary to IBD UC vs. Crohn's - CT on admission: pneumoperitoneum and went to OR emergently. Found to have multiple bowel perforations in small and large intestine causing feculent peritonitis. - 01/11: First operation with bowel resection and second - 01/12: Blood cultures : Negative - 01/14: small bowel anastomosis with end ileostomy, cholecystectomy, and abdominal washout with closure. She was extubated in PACU and then returned to ICU - 01/16: Continue with Ice chips (ok with Surgeon), pain control, will wean down off dilaudid pump. Will need to wean off TPN at some point - 01/18: Started on clear liquid diet, tolerating well. Will work on weaning off TEST ENGINEERING INTERN and TPN. - 01/19: Diet advanced, no nausea/vomiting, minimal pain attributed to dairy intake. Will wean off TEST ENGINEERING INTERN and TPN - 01/20: Diet has been advanced to dysphagia [address] Crooks. Patient is tolerating current diet, no abdominal pain, nausea or vomiting. - 01/21: Tolerating dysphagia 2 diet well and drinking Ensure in between meals. Ileostomy is functioning well. Abdo pain occurs 30-40 mins after meals but improves with IV pain medicines. - 01/22: She still reports some pain, before and after meals but is tolerating feeding without nausea or vomiting. Pain management on Garner - 01/23: Reports that she is doing significantly better, had a decent sized breakfast this morning, tolerated well-no abdominal pain right after, no nausea or vomiting. On examination, abdomen is slightly tender. Ileostomy functioning well. Labs reviewed, WBC uptrended to 25. Per ID recs, will continue IV Unasyn. Patient working with physical therapy, progress noted. Will slowly wean off IV pain medications Plan: - Per ID recs, continue IV Unasyn 3g q6H (01/17 -01/24 ) - Dr Crooks following, appreciate input - Pain management with Garner (1-6) + IV Dilaudid (7-10) only. - GI to evaluate when to resume mesalamine - Physical therapy to continue working with the patient. #Protein Calorie Malnutrition-improving #Hypokalemia -resolved The patient has had persistently low albumin level since prior to surgery. Likely due to decreased intake as well as losses 01/23-total protein 5.3, albumin 3.2 Plan: - IV albumin 25 g x1 given - Continue oral diet #Dyspnea- resolved #Cough- resolved Plan: - Incentive spirometry at bedside - Chest physiotherapy qD #Reactive Leukocytosis WBC : 29 -> 24 -> 22 -> 23.9 Likely secondary to steroid use Plan: - Discontinued steroids as patient is on broad spectrum antibiotics. - Continue SSI every 6 hours - Discontinued Glargine, blood glucose within normal limits after TPN stopped. #Normocytic anemia - resolved Presented with hemoglobin of 7.8 that improved to 9.2 after 4 units PRBC, and is also status-post 1 unit FFP - 01/15 : Hb 12.2 , wnl : Stable, continue to monitor Health Maintenance Disposition: Telemetry DVT prophylaxis: Lovenox GI prophylaxis: Protonix 40 IV Diet: Dysphagia 3 CODE STATUS: Full code Case was discussed with Dr Kevin PGY-2 and attending physician, Dr Chris Hernandez MD PGY-1 Disclaimer: This note was dictated by speech recognition. Minor errors in packing room inspector may be present due to voice recognition software. Patient examined and case discussed with the team including attending physician. Note reviewed, I agree with the care plan as documented. Ms. Smith is a 59-year-old female with history of severe ulcerative colitis who was admitted with acute flare, colocolonic fistula and pneumoperitoneum requiring urgent laparotomy. Patient is status post subtotal colectomy day 8 postop. Plan: Tolerating dysphagia 3 diet, supplemental Ensure protein drinks. Pain is controlled with oral Garner and IV Dilaudid. Dr. Crooks following closely, appreciate recommendations. Wound care ordered to manage surgical site closely. Physical therapy to continue working with the patient, ambulation encouraged. Anticipate DC in next 48 - 72 hours. - Marlon Kevin MD, PGY 2 Disclaimer: The document bellow may not be free of grammatical/phonetic/typographic errors due to use of voice recognition software. This does not dissuade from the commitment to providing health care with the patient's best interest in mind. Attending Provider Attestation/Addendum I have examined the patient, reviewed labs and imaging findings, discussed the case with the resident(s), and reviewed entered orders. I agree with the plan of care as outlined in this note, with these additional summaries/recommendations: Patient seen at bedside. No acute overnight events. Patient will work with physical therapy again today and encouraged her to continue as tolerated. Today patient reports her appetite continues to improve. She is tolerating dysphagia 3 diet well. Patient still endorses abdominal pain but reports it is controlled with oral Garner although still requiring IV Dilaudid. We will continue to wean from IV pain medicines before patient can be safely discharged. Patients WBC up-trended today and has not improved as anticipated. Infectious disease following and patient receiving IV unaysn to end tomorrow 01/24/2025. Clinically patient has been improving daily, has remained afebrile, and Procal negative. Low- suspicion for worsening infection at this time and likely more reactive in nature. We will repeat WBC count tomorrow. If WBC count up-trends again will consider reobtaining cultures, imaging of abdomen, and broadening antibiotics. Continue insulin sliding scale for hyperglycemia most likely secondary to IV steroids and no history of diabetes. Appreciate gastroenterology recommendations on inflammatory bowel disease medications moving forward. Repeat hematology and chemistry panel in AM. Patient will go to SNF when medically cleared for discharge. Dr. Chris MD
[2025-01-23] MEDS: ALBUMIN HUMAN 25% IVPB 12.5 GM/50 ML BTL IV (14:27)
--- NOTE | 2025-01-23 19:59 | PD.IMPROG ---
Documentation for date of: 01/23/25 Subjective Subjective Interval history: Patient evaluated WBC count trending upwards to 25.0 Patient on IV Unasyn Tolerating p.o. diet although not eating very much Functioning ileostomy Exam Vital Signs Temp Pulse Resp BP Pulse Ox O2 Del Method O2 Flow Rate 97.7 F 120 H 23 H 111/69 98 Room Air 2 01/23/25 16:00 01/23/25 16:00 01/23/25 16:00 01/23/25 16:00 01/23/25 16:00 01/23/25 16:00 01/22/25 00:00 FiO2 30 01/14/25 08:00 Objective Labs 01/23/25 08:17 01/23/25 08:17 Labs: Laboratory Results - last 24 hr 01/23/25 08:17 WBC 25.0 H RBC 3.39 L Hgb 9.8 L Hct 29.9 L MCV 88 MCH 28.9 MCHC 32.8 RDW Std Deviation 52.2 H Plt Count 484 H D Neut % (Auto) 90 H Lymph % (Auto) 5 L [place] % (Auto) 2 Eos % (Auto) 0 Baso % (Auto) 0 Neut # (Auto) 22.5 H Lymph # (Auto) 1.3 [place] # (Auto) 0.5 Eos # (Auto) 0.1 Baso # (Auto) 0.1 Immature Gran # (Auto) 0.61 H Absolute Nucleated RBC 0.00 Immature Gran % 2 H Nucleated RBC % 0 Sodium 131 L Potassium 3.5 D Chloride 92 L Carbon Dioxide 30.7 Anion Gap 8 BUN 9 Creatinine 0.2 L Estim Creat Clear Calc 277.6 eGFR > 60 BUN/Creatinine Ratio 45 H Glucose 115 H Calculated Osmolality 262 L Calcium 8.3 Corrected Calcium 8.9 Phosphorus 2.5 Magnesium 1.7 Albumin 3.2 L Impressions Impression: Leukocytosis status post exploratory laparotomy and subtotal colectomy IBD/Crohn's Continue current management ABG Interpretation ABG results: 01/12/25 01/12/25 01/12/25 02:43 04:40 07:51 ABG pH 7.51 H 7.39 D 7.40 ABG pCO2 29 L 41 D 40 ABG pO2 235 H 145 H D 152 H ABG HCO3 23 25 25 ABG O2 Saturation 100 H 99 H 99 H ABG Base Excess 0 0 0 VBG pH VBG pCO2 VBG pO2 VBG Base Excess 01/13/25 01/15/25 04:17 11:51 ABG pH 7.32 L ABG pCO2 43 ABG pO2 137 H ABG HCO3 22 ABG O2 Saturation 99 H ABG Base Excess -4 L VBG pH 7.65 VBG pCO2 37 VBG pO2 75 H VBG Base Excess 18 H Assessment & Plan A&P Narrative cx neg. on zosyn for 3-4d post op or so pt appears to remain npo. changed to iv unasyn. can go with po augmentin if able to take enterally, when taking enterally can finish with po augmentin, but finishes on wed Time Spent With Patient Time: Total time spent is greater than 50% in coordination of care (as documented) at patient's floor/unit and/or counseling patient:
[2025-01-24] VITALS (9 sets, daily range): BP systolic 95–112; BP diastolic 64–68; PULSE 110–128; RESP 15–21; TEMP 36.1–37; O2SAT 94–98; BMI 19.8
[2025-01-24] MEDS: AMPICILLIN/SULBAC INJ 3 GM in SODIUM CHLORIDE 0.9% (P) 100 ML IV ×4 (00:27→18:28)
[2025-01-24] MEDS: HYDROmorphone INJ 2 MG/ML VIAL 1 MG IVP ×5 (00:28→15:03)
[2025-01-24] MEDS: HYDROcodone/APAP 10/325 TAB PO (06:05)
[2025-01-24 06:09] LABS: Basophils % (Auto) 0 % (0-2.5); Eosinophils # (Auto) 0.6 Thou/mm3 (0.0-0.5); Eosinophils % (Auto) 3 % (0-10); Hematocrit 26.4 % (36.0-46.0); Immature Granulocytes % (Auto) 2 % (0-0); Immature Granulocytes Auto 0.48 Thou/mm3 (0.00-0.00); Lymphocytes # (Auto) 1.1 Thou/mm3 (1.0-4.8); Lymphocytes % (Auto) 6 % (10-50); Mean Corpuscular Hemoglobin 29.5 pg (25.0-35.0); Mean Corpuscular Volume 90 fL (80-100); Monocytes # (Auto) 0.7 Thou/mm3 (0.0-0.8); Monocytes % (Auto) 3 % (0-12); Neutrophils % (Auto) 86 % (37-80); Nucleated Red Blood Cell % 0 /100 WBC (0); Platelet Count 537 Thou/mm3 (140-440); RDW Standard Deviation 53.1 fL (36.4-46.3); Red Blood Count 2.95 Miln/mm3 (4.00-5.20); White Blood Count 19.8 Thou/mm3 (3.6-11.0)
[2025-01-24 06:20] LABS: Hemoglobin 8.7 g/dL (12.0-16.0)
[2025-01-24 06:32] LABS: Albumin, Serum 3.2 gm/dL (3.4-4.8); Anion Gap 9 (7-16); BUN/Creatinine Ratio 30 Ratio (12-20); Blood Urea Nitrogen 6 mg/dL (9-23); Calcium 8.5 mg/dL (8.3-10.6); Calcium (Corrected) 9.1 mg/dL (8.5-10.1); Carbon Dioxide 29.3 mMol/L (20.0-31.0); Chloride 94 mMol/L (98-107); Creatinine (Component) 0.2 mg/dL (0.6-1.3); Estimated Creatinine Clearance 222.9 mL/min (>60); Glucose 95 mg/dL (74-106); Magnesium 1.6 mg/dL (1.6-2.6); Osmolality,Calculated 262 (275-295); Phosphorous 2.5 mg/dL (2.4-5.1); Potassium 3.4 mMol/L (3.4-5.1); Sodium 132 mMol/L (136-145); eGFR > 60 See Note
[2025-01-24] MEDS: ASCORBIC ACID 250 MG TABLET 500 MG PO ×2 (08:05→20:11)
[2025-01-24] MEDS: VIT B12/Vit C/FA (Nephrovite) TABLET 1 TAB PO (08:07)
[2025-01-24] MEDS: PANTOPRAZOLE INJ 40 MG VIAL IVP (08:07)
[2025-01-24] MEDS: ZINC SULFATE 220 MG CAPSULE PO (08:07)
[2025-01-24] MEDS: IRON SUCROSE CPLX INJ 20 MG/ML VIAL 5 ML 200 MG IVP (08:15)
[2025-01-24] MEDS: ENOXAPARIN SOD INJ 40 MG/0.4 ML SYRINGE SC (08:21)
[2025-01-24 08:56] LABS: Ferritin 1440 ng/mL (7.3-270.7); Total Iron Binding Capacity 174 mcg/dL (250-425)
[2025-01-24 09:13] LABS: Iron 14 mcg/dL (50-170); Percent Iron Saturation 8 % (20-55); Unsaturated Iron Binding 160 (225-295)
--- NOTE | 2025-01-24 11:39 | PD.SURPROG ---
Documentation for date of: 01/24/25 Subjective Subjective Narrative: Patient is seen and examined. She is resting comfortably Exam Vital Signs Temp Pulse Resp BP Pulse Ox O2 Del Method O2 Flow Rate 97.6 F 110 H 18 105/68 96 Room Air 2 01/24/25 07:42 01/24/25 07:42 01/24/25 07:42 01/24/25 07:42 01/24/25 07:42 01/24/25 07:42 01/24/25 07:42 FiO2 30 01/24/25 07:42 Constitutional Constitutional: no acute distress Routine Abdominal Exam Comments: Abdomen is soft and nondistended. She has minimal clear drainage from the inferior aspect of the incision, otherwise incision is clean, dry and intact without evidence of infection. Ileostomy is functioning Assessment & Plan Assessment Additional comments: POD#12 s/p subtotal colectomy with en-bloc partial small bowel resection POD#10 s/p Re-exploration, SB anastomosis, cholecystectomy and end ileostomy Plan She can be discharged when eating better and ambulating. Procedures Procedures Exploratory laparotomy, small bowel anastomosis with end ileostomy Cholecystectomy Abdominal washout and closure
--- NOTE | 2025-01-24 13:59 | PD.IDPROG ---
Subjective Subjective Interval history: still on iv unasyn. afebrile. no pos cx. will need to stay on her IBD meds moving forward. procal neg 01/21 noted. Exam Vital Signs Temp Pulse Resp BP Pulse Ox O2 Del Method O2 Flow Rate 97.0 F 115 H 18 104/67 97 Room Air 2 01/24/25 12:00 01/24/25 12:00 01/24/25 12:00 01/24/25 12:00 01/24/25 12:00 01/24/25 12:00 01/24/25 07:42 FiO2 30 01/24/25 07:42 Narrative Exam c/o pain but seems well. wbc trending favorably, abd grossly benign. has rlq ostomy and no other drains noted. Objective - Internal Medicine Labs 01/24/25 05:24 01/24/25 05:24 Labs: Laboratory Results - last 24 hr 01/13/25 01/24/25 07:25 05:24 WBC 19.8 H D RBC 2.95 L Hgb 8.7 L Hct 26.4 L MCV 90 MCH 29.5 MCHC 33.0 RDW Std Deviation 53.1 H Plt Count 537 H D Neut % (Auto) 86 H Lymph % (Auto) 6 L [place] % (Auto) 3 Eos % (Auto) 3 Baso % (Auto) 0 Neut # (Auto) 17.0 H Lymph # (Auto) 1.1 [place] # (Auto) 0.7 Eos # (Auto) 0.6 H Baso # (Auto) 0.0 Immature Gran # (Auto) 0.48 H Absolute Nucleated RBC 0.00 Immature Gran % 2 H Nucleated RBC % 0 Sodium 132 L Potassium 3.4 Chloride 94 L Carbon Dioxide 29.3 Anion Gap 9 BUN 6 L Creatinine 0.2 L Estim Creat Clear Calc 222.9 eGFR > 60 BUN/Creatinine Ratio 30 H Glucose 95 Calculated Osmolality 262 L Calcium 8.5 Corrected Calcium 9.1 Phosphorus 2.5 Magnesium 1.6 Iron 14 L TIBC 174 L Iron Saturation 8 L Unsat Iron Binding 160 L Ferritin 1440 H Albumin 3.2 L Misc Test Result See Sep Rpt ABG Interpretation ABG results: 01/12/25 01/12/25 01/12/25 02:43 04:40 07:51 ABG pH 7.51 H 7.39 D 7.40 ABG pCO2 29 L 41 D 40 ABG pO2 235 H 145 H D 152 H ABG HCO3 23 25 25 ABG O2 Saturation 100 H 99 H 99 H ABG Base Excess 0 0 0 VBG pH VBG pCO2 VBG pO2 VBG Base Excess 01/13/25 01/15/25 04:17 11:51 ABG pH 7.32 L ABG pCO2 43 ABG pO2 137 H ABG HCO3 22 ABG O2 Saturation 99 H ABG Base Excess -4 L VBG pH 7.65 VBG pCO2 37 VBG pO2 75 H VBG Base Excess 18 H Assessment & Plan A&P Narrative cx neg. on zosyn for 3-4d post op or so. doing ok on unasyn for past several days. has been off steroid since 01/16 (last dose that day apparently) finishes iv unasyn today.ok with me i f you want her on po rx at home. that is a choice you can make. suggest po augmentin 875 bid for 5d more if you choose that approach, but I am ok with nothing. will see again prn Time Spent With Patient Time: Total time spent is greater than 50% in coordination of care (as documented) at patient's floor/unit and/or counseling patient:
--- NOTE | 2025-01-24 15:14 | PC.SS ---
Follow up note: SS spoke to Missy @ [facility] and they state they are not contracted after reviewing. They can attempt an ROSA. SS advised to hold so we can look for a contracted facility first. [facility] is a contracted facility. SS resent on jovana. Pending review and authorization.
--- NOTE | 2025-01-24 15:30 | ESPR_ITS ---
Documentation for date of: 01/24/25 Subjective Subjective Interval history: Patient seen at bedside. No acute overnight events. Patient is doing well on her diet, no nausea or vomiting, pain is improving. She still little tachycardic, possibly pain related. Labs reviewed, WBC downtrending at 19 today and hemoglobin dropped to 8.7 but patient has no bleeding noted. Evaluated by ID today, will complete IV Unasyn. Will evaluate anticipate discharge within 24 to 48 hours as patient continues to advance with diet and ambulate. Exam Vital Signs Temp Pulse Resp BP Pulse Ox O2 Del Method O2 Flow Rate 97.0 F 115 H 18 104/67 97 Room Air 2 01/24/25 12:00 01/24/25 12:00 01/24/25 12:00 01/24/25 12:00 01/24/25 12:00 01/24/25 12:00 01/24/25 07:42 FiO2 30 01/24/25 07:42 Narrative Exam GENERAL: AAOX3 NEURO: CASING TIER grossly intact, moves extremities x4 HEENT: Moist mucosa. Eyes open, symmetrical, & clear. CARDIO: No chest pain on palpation. Heart RRR, no obvious murmurs PULM: No noted coughing/dyspnea. Lungs CTA B/L GI: Abdomen soft, nondistended, no pain on palpation. Incisional site clean, no discharge. Ileostomy functioning well. Normoactive bowel sounds URO/TERRA COTTA ROOFER:: No further abnormalities noted. SKIN/MSK/EXT: No wounds/rashes/edema/amputations, no pain on palpation. Pedal pulses present B/L Objective Labs 01/24/25 05:24 01/24/25 05:24 Labs: Laboratory Results - last 24 hr 01/13/25 01/24/25 07:25 05:24 WBC 19.8 H D RBC 2.95 L Hgb 8.7 L Hct 26.4 L MCV 90 MCH 29.5 MCHC 33.0 RDW Std Deviation 53.1 H Plt Count 537 H D Neut % (Auto) 86 H Lymph % (Auto) 6 L [place] % (Auto) 3 Eos % (Auto) 3 Baso % (Auto) 0 Neut # (Auto) 17.0 H Lymph # (Auto) 1.1 [place] # (Auto) 0.7 Eos # (Auto) 0.6 H Baso # (Auto) 0.0 Immature Gran # (Auto) 0.48 H Absolute Nucleated RBC 0.00 Immature Gran % 2 H Nucleated RBC % 0 Sodium 132 L Potassium 3.4 Chloride 94 L Carbon Dioxide 29.3 Anion Gap 9 BUN 6 L Creatinine 0.2 L Estim Creat Clear Calc 222.9 eGFR > 60 BUN/Creatinine Ratio 30 H Glucose 95 Calculated Osmolality 262 L Calcium 8.5 Corrected Calcium 9.1 Phosphorus 2.5 Magnesium 1.6 Iron 14 L TIBC 174 L Iron Saturation 8 L Unsat Iron Binding 160 L Ferritin 1440 H Albumin 3.2 L Misc Test Result See Sep Rpt ABG Interpretation ABG results: 01/12/25 01/12/25 01/12/25 02:43 04:40 07:51 ABG pH 7.51 H 7.39 D 7.40 ABG pCO2 29 L 41 D 40 ABG pO2 235 H 145 H D 152 H ABG HCO3 23 25 25 ABG O2 Saturation 100 H 99 H 99 H ABG Base Excess 0 0 0 VBG pH VBG pCO2 VBG pO2 VBG Base Excess 01/13/25 01/15/25 04:17 11:51 ABG pH 7.32 L ABG pCO2 43 ABG pO2 137 H ABG HCO3 22 ABG O2 Saturation 99 H ABG Base Excess -4 L VBG pH 7.65 VBG pCO2 37 VBG pO2 75 H VBG Base Excess 18 H Quality Measures Quality Measures VTE prophylaxis Assessment & Plan Assessment Current Active Medications: Generic Name Dose Route Start Last Admin Trade Name Freq PRN Reason Stop Dose Admin Hydrocodone Bitart/Acetaminophen 1 tab 01/22/25 09:43 01/24/25 06:05 Hydrocodone/Apap 10/325 Tab PO 01/27/25 09:42 1 tab Q6HR PRN Administration Pain 1-6 Albuterol/Ipratropium 3 ml 01/16/25 11:56 01/16/25 12:04 Albuterol/Ipratropium (Duoneb) Rt Bambi 3 Ml Nebu INH 02/15/25 14:59 3 ml Q4HRRT PRN Administration SHORTNESS OF BREATH OR WHEEZE Ascorbic Acid 500 mg 01/18/25 10:30 01/24/25 08:05 Ascorbic Acid 250 Mg Tablet PO 02/17/25 10:29 500 mg BID CAMERON Administration Dextrose 50 ml 01/13/25 06:35 Dextrose 50%-Water Inj 50 Ml Syringe IV 02/12/25 06:34 Q15MIN PRN BG <50 OR BG <70 & pt unresponsive Enoxaparin Sodium 40 mg 01/16/25 09:00 01/24/25 08:21 Enoxaparin Sod Inj 40 Mg/0.4 Ml Syringe SC 01/30/25 08:59 40 mg QDAY CAMERON Administration Glucagon 1 mg 01/13/25 06:35 Glucagon Inj 1 Mg Vial IM Q15MIN PRN BG <70, and no IV access Hydromorphone HCl 1 mg 01/23/25 09:46 01/24/25 15:03 Hydromorphone Inj 2 Mg/Ml Vial IVP 01/26/25 19:32 1 mg Q3HR PRN Administration PAIN SCALE 7-10 (Severe Ampicillin Sodium/Sulbactam 100 mls @ 200 mls/hr 01/17/25 18:00 01/24/25 12:23 Sodium 3 gm/ Sodium Chloride IV 01/24/25 17:59 200 mls/hr Q6HR CAMERON Administration Insulin Human Lispro 0 unit 01/21/25 11:30 01/24/25 11:58 Insulin Lispro (Admelog) 1 Unit/0.01 Ml Unit SC 02/20/25 11:29 Not Given AC [facility] Protocol Iron Sucrose 200 mg 01/24/25 09:00 01/24/25 08:15 Iron Sucrose Cplx Inj 20 Mg/Ml Vial 5 Ml IVP 01/28/25 08:59 200 mg DAILY CAMERON Administration Vitamin B Complex/Vit C/Folic Acid 1 tab 01/20/25 10:15 01/24/25 08:07 Vit B12/Vit C/Fa (Nephrovite) Tablet PO 02/19/25 10:14 1 tab QDAY CAMERON Administration Zinc Sulfate 220 mg 01/18/25 10:30 01/24/25 08:07 Zinc Sulfate 220 Mg Capsule PO 02/17/25 10:29 220 mg QDAY CAMERON Administration Plan Summary: The patient is a 59-year-old female with past medical history of inflammatory bowel disease/ulcerative colitis on chronic steroids that was recently discharged on 12/21/2024 for IBS flareup and admitted on 01/11 for pneumoperitoneum requiring emergent ex-lap. Found to have multiple areas of small and large bowel perforation with feculent peritonitis as well as coloenteric fistulas. Underwent subtotal colectomy on 01/11 and subsequently admitted to the ICU for further management. patient was downgraded to medical floors on 01/15 for furtehr management. #Acute abdomen 2/2 Severe Peritonitis - resolved #POD#11 s/p subtotal colectomy with en-bloc partial small bowel resection #POD#8 s/p Re-exploration, SB anastomosis, cholecystectomy and end ileostomy in the setting of #Inflammatory Bowel Disease #Ulcerative Colitis, fistulizing - likely distributive in setting of feculent peritonitis secondary to enterocutaneous fistulas secondary to IBD UC vs. Crohn's - CT on admission: pneumoperitoneum and went to OR emergently. Found to have multiple bowel perforations in small and large intestine causing feculent peritonitis. - 01/11: First operation with bowel resection and second - 01/12: Blood cultures : Negative - 01/14: small bowel anastomosis with end ileostomy, cholecystectomy, and abdominal washout with closure. She was extubated in PACU and then returned to ICU - 01/16: Continue with Ice chips (ok with Surgeon), pain control, will wean down off dilaudid pump. Will need to wean off TPN at some point - 01/18: Started on clear liquid diet, tolerating well. Will work on weaning off LIQUID WASTE [employer]ATMENT PLANT OPERATOR and TPN. - 01/19: Diet advanced, no nausea/vomiting, minimal pain attributed to dairy intake. Will wean off LIQUID WASTE TREATMENT PLANT OPERATOR and TPN - 01/20: Diet has been advanced to dysphagia [address] Crooks. Patient is tolerating current diet, no abdominal pain, nausea or vomiting. - 01/21: Tolerating dysphagia 2 diet well and drinking Ensure in between meals. Ileostomy is functioning well. Abdo pain occurs 30-40 mins after meals but improves with IV pain medicines. - 01/22: She still reports some pain, before and after meals but is tolerating feeding without nausea or vomiting. Pain management on Stonewall - 01/23: Reports that she is doing significantly better, had a decent sized breakfast this morning, tolerated well-no abdominal pain right after, no nausea or vomiting. On examination, abdomen is slightly tender. Ileostomy functioning well. Labs reviewed, WBC uptrended to 25. Per ID recs, will continue IV Unasyn. Patient working with physical therapy, progress noted. Will slowly wean off IV pain medications -01/24: Patient is doing well on her diet, no nausea or vomiting, pain is improving. She still little tachycardic, possibly pain related. Labs reviewed, WBC downtrending at 19 today and hemoglobin dropped to 8.7 but patient has no bleeding noted. Evaluated by ID today, will complete IV Unasyn. Plan: - DC IV Unasyn after last dose today - Dr Crooks following, appreciate input - Pain management with Stonewall (1-6) + IV Dilaudid (7-10) only. - GI to evaluate when to resume mesalamine - Physical therapy to continue working with the patient. #Protein Calorie Malnutrition-improving #Hypokalemia -resolved The patient has had persistently low albumin level since prior to surgery. Likely due to decreased intake as well as losses 01/23-total protein 5.3, albumin 3.2 Plan: - IV albumin 25 g x1 given - Continue oral diet #Dyspnea- resolved #Cough- resolved Plan: - Incentive spirometry at bedside - Chest physiotherapy qD #Reactive Leukocytosis- improving WBC : 29 -> 24 -> 22 -> 23.9 Likely secondary to steroid use Plan: - Discontinued steroids as patient is on broad spectrum antibiotics. - Continue SSI every 6 hours - Discontinued Glargine, blood glucose within normal limits after TPN stopped. #Normocytic anemia - resolved Presented with hemoglobin of 7.8 that improved to 9.2 after 4 units PRBC, and is also status-post 1 unit FFP - 01/15 : Hb 12.2 , wnl : Stable, continue to monitor Health Maintenance Disposition: Telemetry DVT prophylaxis: Lovenox GI prophylaxis: Protonix 40 IV Diet: Dysphagia 3 CODE STATUS: Full code Case was discussed with Dr Kevin PGY-2 and attending physician, Dr Dagoberto Hernandez MD PGY-1 Disclaimer: This note was dictated by speech recognition. Minor errors in molded parts inspector may be present due to voice recognition software. LPatient examined and case discussed with the team including attending physician. Note reviewed, I agree with the care plan as documented. Ms. Smith is a 59-year-old female with history of severe ulcerative colitis who was admitted with acute flare, colocolonic fistula and pneumoperitoneum requiring urgent laparotomy. Patient is status post subtotal colectomy day 8 postop. Plan: - Tolerating dysphagia 3 diet, supplemental Ensure protein drinks. - Pain is controlled with oral Stonewall and IV Dilaudid, transitioning to PO Stonewall. - Dr. Crooks following closely, appreciate recommendations. Wound care ordered to manage surgical site closely. - Physical therapy to continue working with the patient, ambulation encouraged. Dispo: Anticipate DC in next 48 hours, once patient able to ambulate more comfortably. creative services coordinator on board, patient will be discharged to acute rehab. - Marlon Kevin MD, PGY 2 Disclaimer: The document bellow may not be free of grammatical/phonetic/typographic errors due to use of voice recognition software. This does not dissuade from the commitment to providing health care with the patient's best interest in mind. L Attending Provider Attestation/Addendum I have discussed and was present for the essential components of the history, physical examination, diagnosis, and treatment plan with the resident. I agree with the patient's care as documented by the resident and amended herein by me. Mundo Arenas DO. Although this document has been carefully reviewed, there may still be some phonetic and other typographical errors. These errors are purely grammatical due to imperfections in the software program and should not be construed in any way to compromise the substance of the patient's medical care during this visit.
[2025-01-24] MEDS: HYDROmorphone INJ 2 MG/ML VIAL 0.5 MG IVP ×3 (18:27→21:58)
--- NOTE | 2025-01-24 21:40 | ESPR_ITS ---
Documentation for date of: 01/24/25 Subjective Subjective Interval history: Patient evaluated Hemoglobin hematocrit slight drop to 8.7 and 26.4 White count is down to 19.8 from 25K Exam Vital Signs Temp Pulse Resp BP Pulse Ox O2 Del Method O2 Flow Rate 97.5 F 120 H 21 H 110/65 94 L Room Air 2 01/24/25 20:00 01/24/25 20:00 01/24/25 20:00 01/24/25 20:00 01/24/25 20:00 01/24/25 20:00 01/24/25 07:42 FiO2 30 01/24/25 07:42 Constitutional Comments: Chronically ill-appearing Routine Respiratory Exam Comments: Normal to auscultation Routine Abdominal Exam Comments: Functioning ileostomy Objective Labs 01/24/25 05:24 01/24/25 05:24 Labs: Laboratory Results - last 24 hr 01/13/25 01/24/25 07:25 05:24 WBC 19.8 H D RBC 2.95 L Hgb 8.7 L Hct 26.4 L MCV 90 MCH 29.5 MCHC 33.0 RDW Std Deviation 53.1 H Plt Count 537 H D Neut % (Auto) 86 H Lymph % (Auto) 6 L [place] % (Auto) 3 Eos % (Auto) 3 Baso % (Auto) 0 Neut # (Auto) 17.0 H Lymph # (Auto) 1.1 [place] # (Auto) 0.7 Eos # (Auto) 0.6 H Baso # (Auto) 0.0 Immature Gran # (Auto) 0.48 H Absolute Nucleated RBC 0.00 Immature Gran % 2 H Nucleated RBC % 0 Sodium 132 L Potassium 3.4 Chloride 94 L Carbon Dioxide 29.3 Anion Gap 9 BUN 6 L Creatinine 0.2 L Estim Creat Clear Calc 222.9 eGFR > 60 BUN/Creatinine Ratio 30 H Glucose 95 Calculated Osmolality 262 L Calcium 8.5 Corrected Calcium 9.1 Phosphorus 2.5 Magnesium 1.6 Iron 14 L TIBC 174 L Iron Saturation 8 L Unsat Iron Binding 160 L Ferritin 1440 H Albumin 3.2 L Misc Test Result See Sep Rpt Impressions Impression: Improving leukocytosis Slight drop in hemoglobin hematocrit Status post exploratory laparotomy subtotal colonic resection and en bloc resection of the small bowel with ileostomy Continue current management ABG Interpretation ABG results: 01/12/25 01/12/25 01/12/25 02:43 04:40 07:51 ABG pH 7.51 H 7.39 D 7.40 ABG pCO2 29 L 41 D 40 ABG pO2 235 H 145 H D 152 H ABG HCO3 23 25 25 ABG O2 Saturation 100 H 99 H 99 H ABG Base Excess 0 0 0 VBG pH VBG pCO2 VBG pO2 VBG Base Excess 01/13/25 01/15/25 04:17 11:51 ABG pH 7.32 L ABG pCO2 43 ABG pO2 137 H ABG HCO3 22 ABG O2 Saturation 99 H ABG Base Excess -4 L VBG pH 7.65 VBG pCO2 37 VBG pO2 75 H VBG Base Excess 18 H Assessment & Plan A&P Narrative cx neg. on zosyn for 3-4d post op or so. doing ok on unasyn for past several days. has been off steroid since 01/16 (last dose that day apparently) finishes iv unasyn today.ok with me i f you want her on po rx at home. that is a choice you can make. suggest po augmentin 875 bid for 5d more if you choose that approach, but I am ok with nothing. will see again prn Time Spent With Patient Time: Total time spent is greater than 50% in coordination of care (as documented) at patient's floor/unit and/or counseling patient:
[2025-01-25] VITALS (9 sets, daily range): BP systolic 94–115; BP diastolic 57–72; PULSE 116–125; RESP 14–20; TEMP 36.1–36.7; O2SAT 95–98; BMI 19.8
[2025-01-25] MEDS: HYDROmorphone INJ 2 MG/ML VIAL 0.5 MG IVP ×3 (01:01→07:07)
[2025-01-25 05:51] LABS: Basophils % (Auto) 0 % (0-2.5); Eosinophils # (Auto) 0.1 Thou/mm3 (0.0-0.5); Eosinophils % (Auto) 0 % (0-10); Hematocrit 29.2 % (36.0-46.0); Hemoglobin 9.8 g/dL (12.0-16.0); Immature Granulocytes % (Auto) 2 % (0-0); Immature Granulocytes Auto 0.22 Thou/mm3 (0.00-0.00); Lymphocytes # (Auto) 1.4 Thou/mm3 (1.0-4.8); Lymphocytes % (Auto) 9 % (10-50); Mean Corpuscular HGB Conc 33.6 g/dl (31.0-37.0); Mean Corpuscular Volume 89 fL (80-100); Monocytes # (Auto) 0.5 Thou/mm3 (0.0-0.8); Monocytes % (Auto) 4 % (0-12); Neutrophils # (Auto) 12.8 Thou/mm3 (1.8-7.7); Neutrophils % (Auto) 86 % (37-80); Nucleated Red Blood Cell % 0 /100 WBC (0); Platelet Count 632 Thou/mm3 (140-440); RDW Standard Deviation 53.1 fL (36.4-46.3); Red Blood Count 3.27 Miln/mm3 (4.00-5.20)
[2025-01-25 06:21] LABS: Albumin, Serum 3.3 gm/dL (3.4-4.8); Anion Gap 12 (7-16); BUN/Creatinine Ratio 30 Ratio (12-20); Blood Urea Nitrogen 6 mg/dL (9-23); Calcium 8.6 mg/dL (8.3-10.6); Calcium (Corrected) 9.2 mg/dL (8.5-10.1); Carbon Dioxide 28.4 mMol/L (20.0-31.0); Chloride 92 mMol/L (98-107); Creatinine (Component) 0.2 mg/dL (0.6-1.3); Estimated Creatinine Clearance 222.9 mL/min (>60); Glucose 85 mg/dL (74-106); Magnesium 1.7 mg/dL (1.6-2.6); Osmolality,Calculated 261 (275-295); Phosphorous 2.8 mg/dL (2.4-5.1); Potassium 3.2 mMol/L (3.4-5.1); Sodium 132 mMol/L (136-145); eGFR > 60 See Note
[2025-01-25] MEDS: HYDROcodone/APAP 10/325 TAB PO ×2 (08:58→17:27)
--- NOTE | 2025-01-25 09:41 | XR_ITS ---
Examination: CT abdomen with intravenous contrast CT pelvis with intravenous contrast 2-D coronal reconstructions 2-D sagittal reconstructions Date and time of exam:January 25, 2025 at 10:00 AM Indications: Pneumoperitoneum January 11, 2025, post subtotal colectomy, generalized abdominal pain today. CTDI: vol (mGy) 6.67 DLP: (mGycm) 352 Technique: Multiple axial sections of the abdomen and pelvis have been obtained. 64 slice high-resolution scanner used. 3 mm axial sections have been obtained, post intravenous injection 60 cc [id number] 2-D sagittal, coronal reconstructions obtained. Low dose protocols were performed. One or more of the following dose reduction techniques were used; automated exposure control, adjustment of the mA and/or KV according to patient size, use of iterative reconstruction technique. Findings: Pneumonia at the lung bases with minimal bilateral pleural fluid s Intrahepatic biliary tract dilatation Stones in the common hepatic duct, 4 mm, coronal image 54 and 3 mm stone in the common bile duct coronal image 55 with common bile duct measuring 12 mm No pancreatic mass Fluid distended stomach Spleen not enlarged Mild free fluid below the liver No hydronephrosis Right ileostomy, with narrowing of small bowel at the entrance site into the ileostomy, axial image 129 Multiple prominently fluid distended small bowel loops in the lower abdomen and pelvis Significant free fluid in the pelvis above the bladder Impression: Bibasilar pneumonia Extra-axial intrahepatic biliary tract dilatation with 4 mm stone in the common hepatic duct and 3 mm stone in the common bile duct, consider ERCP follow-up with stent placement Significant free fluid in the pelvis Small bowel obstruction pattern, which may be at the ileostomy site, consider Gastrografin small bowel series follow-up
--- NOTE | 2025-01-25 10:27 | PD.SURPROG ---
Documentation for date of: 01/25/25 Subjective Subjective Narrative: Patient is seen and examined. She is complaining of abdominal pain today. She is tolerating diet without nausea or vomiting. She is not ambulating much Exam Vital Signs Temp Pulse Resp BP Pulse Ox O2 Del Method O2 Flow Rate 97.1 F 123 H 15 96/67 96 Room Air 2 01/25/25 07:49 01/25/25 07:49 01/25/25 07:49 01/25/25 07:49 01/25/25 07:49 01/25/25 07:49 01/24/25 07:42 FiO2 30 01/24/25 07:42 Constitutional Constitutional: no acute distress Routine Abdominal Exam Comments: Abdomen is soft and nondistended. Incision is clean, dry and intact failure of the ostomy is functioning Assessment & Plan Assessment Additional comments: POD#13 s/p subtotal colectomy with en-bloc partial small bowel resection POD#11 s/p Re-exploration, SB anastomosis, cholecystectomy and end ileostomy Plan She has completed IV antibiotics. Will give her 5 days of oral Augmentin per ID recommendation. She is encouraged to increase ambulation as it is keeping her in the hospital Procedures Procedures Exploratory laparotomy, small bowel anastomosis with end ileostomy Cholecystectomy Abdominal washout and closure
[2025-01-25] MEDS: HYDROmorphone INJ 2 MG/ML VIAL 1 MG IVP ×3 (10:54→22:18)
[2025-01-25] MEDS: POTASSIUM CHLORIDE 10% 20 MEQ/15 ML UDC 40 MEQ PO (11:06)
[2025-01-25] MEDS: POTASSIUM CHLORIDE 20 mEq TABCR PO (11:07)
[2025-01-25] MEDS: ASCORBIC ACID 250 MG TABLET 500 MG PO ×2 (11:08→20:32)
[2025-01-25] MEDS: ENOXAPARIN SOD INJ 40 MG/0.4 ML SYRINGE SC (11:08)
[2025-01-25] MEDS: IRON SUCROSE CPLX INJ 20 MG/ML VIAL 5 ML 200 MG IVP (11:09)
[2025-01-25] MEDS: VIT B12/Vit C/FA (Nephrovite) TABLET 1 TAB PO (11:11)
[2025-01-25] MEDS: ZINC SULFATE 220 MG CAPSULE PO (11:11)
[2025-01-25] MEDS: AMOXICILLIN/POT CLAV 875 TABLET 1 TAB PO ×2 (11:14→20:32)
--- NOTE | 2025-01-25 12:10 | PC.SS ---
Addendum entered by Stephanie Rodney 01/25/25 15:02: SS received a call from [facility] indicating after further review, they are contracted and patient has met her deductible. Patient has no out of pocket costs and has 60 days per calendar year. D/c pending once cleared. Original Note: Follow up note: SS spoke to patient and family and they do not want [facility] and they are contracted. They prefer [facility]. SS contacted them to inquire if they are contracted. The only two facilities in [place] are [facility] and [facility]. If not, SS presented home health or out of area.
[2025-01-25] MEDS: SIMETHICONE 80 MG CHEW PO ×2 (13:36→19:21)
[2025-01-25] MEDS: Magnesium Sulfate 2 GM Ivpb 2 GM/50 ML BAG IV (13:37)
--- NOTE | 2025-01-25 14:57 | ESPR_ITS ---
Documentation for date of: 01/25/25 Subjective Subjective Interval history: Patient seen at bedside. Dilaudid dose reduced from 1mg to 0.5mg q4H yesterday. Overnight patient had severe abdominal pain, refractory to dilaudid. She continues to be tachycardic, possibly pain related. IV unasyn course completed yesterday. Dr Crooks started patient on Augmentin 875 mg BID. Labs reviewed, WBC downtrending 25 -> 19 -> 15 Patient is tolerating diet, no nausea or vomiting, however pain is worse. IV dilaudid increased back to 1mg. CT abdomen/pelvis w/ contrast ordered to evaluate abdominal tenderness and worsening clinical status Per surgery evaluation, patient must ambulate frequently and continue to work with PT. Will evaluate anticipate discharge within 24 to 48 hours as patient continues to advance with diet and ambulate. Exam Vital Signs Temp Pulse Resp BP Pulse Ox O2 Del Method O2 Flow Rate 97.1 F 123 H 15 96/67 96 Room Air 2 01/25/25 07:49 01/25/25 07:49 01/25/25 07:49 01/25/25 07:49 01/25/25 07:49 01/25/25 07:49 01/24/25 07:42 FiO2 30 01/24/25 07:42 Narrative Exam Constitutional Alert, oriented x3 but in severe pain HEENT Vision grossly intact. Patent nares. Trachea midline. Respiratory Chest normal on inspection and clear to auscultation bilaterally. Cardiovascular S1 and S2 audible, RRR. No murmurs or carotid bruit. No gross JVD. Abdominal Hard and tender to palpation in LT and RT lower quadrants. BS + Ileosteomy bag functional, good output. Genitourinary No bladder tenderness, no flank pain. Normal to palpation. Musculoskeletal Extremities tone within normal limits. No LE edema. Neurological CN II - XII grossly intact. Extremity motor and sensation grossly intact. Skin Warm, dry and intact. No apparent lesions. Wound intact, no discharge Psychiatric Patient has a good affect, is cooperative. Objective Labs 01/25/25 05:24 01/25/25 05:24 Labs: Laboratory Results - last 24 hr 01/25/25 05:24 WBC 15.0 H RBC 3.27 L Hgb 9.8 L Hct 29.2 L MCV 89 MCH 30.0 MCHC 33.6 RDW Std Deviation 53.1 H Plt Count 632 H D Neut % (Auto) 86 H Lymph % (Auto) 9 L [place] % (Auto) 4 Eos % (Auto) 0 Baso % (Auto) 0 Neut # (Auto) 12.8 H Lymph # (Auto) 1.4 [place] # (Auto) 0.5 Eos # (Auto) 0.1 Baso # (Auto) 0.0 Immature Gran # (Auto) 0.22 H Absolute Nucleated RBC 0.00 Immature Gran % 2 H Nucleated RBC % 0 Sodium 132 L Potassium 3.2 L Chloride 92 L Carbon Dioxide 28.4 Anion Gap 12 BUN 6 L Creatinine 0.2 L Estim Creat Clear Calc 222.9 eGFR > 60 BUN/Creatinine Ratio 30 H Glucose 85 Calculated Osmolality 261 L Calcium 8.6 Corrected Calcium 9.2 Phosphorus 2.8 Magnesium 1.7 Total Bilirubin Cancelled Direct Bilirubin Cancelled AST Cancelled ALT Cancelled Alkaline Phosphatase Cancelled Total Protein Cancelled Albumin 3.3 L ABG Interpretation ABG results: 01/12/25 01/12/25 01/12/25 02:43 04:40 07:51 ABG pH 7.51 H 7.39 D 7.40 ABG pCO2 29 L 41 D 40 ABG pO2 235 H 145 H D 152 H ABG HCO3 23 25 25 ABG O2 Saturation 100 H 99 H 99 H ABG Base Excess 0 0 0 VBG pH VBG pCO2 VBG pO2 VBG Base Excess 01/13/25 01/15/25 04:17 11:51 ABG pH 7.32 L ABG pCO2 43 ABG pO2 137 H ABG HCO3 22 ABG O2 Saturation 99 H ABG Base Excess -4 L VBG pH 7.65 VBG pCO2 37 VBG pO2 75 H VBG Base Excess 18 H Quality Measures Quality Measures VTE prophylaxis Assessment & Plan Assessment Current Active Medications: Generic Name Dose Route Start Last Admin Trade Name Freq PRN Reason Stop Dose Admin Hydrocodone Bitart/Acetaminophen 1 tab 01/22/25 09:43 01/25/25 08:58 Hydrocodone/Apap 10/325 Tab PO 01/27/25 09:42 1 tab Q6HR PRN Administration Pain 1-6 Albuterol/Ipratropium 3 ml 01/16/25 11:56 01/16/25 12:04 Albuterol/Ipratropium (Duoneb) Rt Bambi 3 Ml Nebu INH 03/20/25 14:59 3 ml Q4HRRT PRN Administration SHORTNESS OF BREATH OR WHEEZE Amoxicillin/Clavulanate Potassium 1 tab 01/25/25 10:30 01/25/25 11:14 Amoxicillin/Pot Clav 875 Tablet PO 02/01/25 10:29 1 tab BID CAMERON Administration Ascorbic Acid 500 mg 01/18/25 10:30 01/25/25 11:08 Ascorbic Acid 250 Mg Tablet PO 02/17/25 10:29 500 mg BID CAMERON Administration Dextrose 50 ml 01/13/25 06:35 Dextrose 50%-Water Inj 50 Ml Syringe IV 02/12/25 06:34 Q15MIN PRN BG <50 OR BG <70 & pt unresponsive Enoxaparin Sodium 40 mg 01/16/25 09:00 01/25/25 11:08 Enoxaparin Sod Inj 40 Mg/0.4 Ml Syringe SC 01/30/25 08:59 40 mg QDAY CAMERON Administration Glucagon 1 mg 01/13/25 06:35 Glucagon Inj 1 Mg Vial IM Q15MIN PRN BG <70, and no IV access Hydromorphone HCl 1 mg 01/25/25 09:44 01/25/25 10:54 Hydromorphone Inj 2 Mg/Ml Vial IVP 01/29/25 16:20 1 mg Q4HR PRN Administration PAIN SCALE 7-10 (Severe Insulin Human Lispro 0 unit 01/21/25 11:30 01/25/25 13:23 Insulin Lispro (Admelog) 1 Unit/0.01 Ml Unit SC 02/20/25 11:29 Not Given AC [facility] Protocol Iron Sucrose 200 mg 01/24/25 09:00 01/25/25 11:09 Iron Sucrose Cplx Inj 20 Mg/Ml Vial 5 Ml IVP 01/28/25 08:59 200 mg DAILY CAMERON Administration Vitamin B Complex/Vit C/Folic Acid 1 tab 01/20/25 10:15 01/25/25 11:11 Vit B12/Vit C/Fa (Nephrovite) Tablet PO 02/19/25 10:14 1 tab QDAY CAMERON Administration Zinc Sulfate 220 mg 01/18/25 10:30 01/25/25 11:11 Zinc Sulfate 220 Mg Capsule PO 02/17/25 10:29 220 mg QDAY CAMERON Administration Plan Summary: The patient is a 59-year-old female with past medical history of inflammatory bowel disease/ulcerative colitis on chronic steroids that was recently discharged on 12/21/2024 for IBS flareup and admitted on 01/11 for pneumoperitoneum requiring emergent ex-lap. Found to have multiple areas of small and large bowel perforation with feculent peritonitis as well as coloenteric fistulas. Underwent subtotal colectomy on 01/11 and subsequently admitted to the ICU for further management. patient was downgraded to medical floors on 01/15 for furtehr management. 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 Crohn's - CT on admission: pneumoperitoneum and went to OR emergently. Found to have multiple bowel perforations in small and large intestine causing feculent peritonitis. - 01/11: First operation with bowel resection and second - 01/12: Blood cultures : Negative - 01/14: small bowel anastomosis with end ileostomy, cholecystectomy, and abdominal washout with closure. She was extubated in PACU and then returned to ICU - 01/16: Continue with Ice chips (ok with Surgeon), pain control, will wean down off dilaudid pump. Will need to wean off TPN at some point - 01/18: Started on clear liquid diet, tolerating well. Will work on weaning off [employer] and TPN. - 01/19: Diet advanced, no nausea/vomiting, minimal pain attributed to dairy intake. Will wean off [employer] and TPN - 01/20: Diet has been advanced to dysphagia [address] Crooks. Patient is tolerating current diet, no abdominal pain, nausea or vomiting. - 01/21: Tolerating dysphagia 2 diet well and drinking Ensure in between meals. Ileostomy is functioning well. Abdo pain occurs 30-40 mins after meals but improves with IV pain medicines. - 01/22: She still reports some pain, before and after meals but is tolerating feeding without nausea or vomiting. Pain management on [place] - 01/23: Reports that she is doing significantly better, had a decent sized breakfast this morning, tolerated well-no abdominal pain right after, no nausea or vomiting. On examination, abdomen is slightly tender. Ileostomy functioning well. Labs reviewed, WBC uptrended to 25. Per ID recs, will continue IV Unasyn. Patient working with physical therapy, progress noted. Will slowly wean off IV pain medications -01/24: Patient is doing well on her diet, no nausea or vomiting, pain is improving. She still little tachycardic, possibly pain related. Labs reviewed, WBC downtrending at 19 today and hemoglobin dropped to 8.7 but patient has no bleeding noted. Evaluated by ID today, will complete IV Unasyn (01/17 - 01/24) - 01/25: pain is worse. IV dilaudid increased back to 1mg. CT abdomen/pelvis w/ contrast ordered to evaluate abdominal tenderness and worsening clinical status. WBC downtrending 25 -> 19 -> 15, patient remains afebrile. Plan: - Dr Crooks following, appreciate input - IV Unasyn (01/17 - 01/24) --> On PO Augmentin 875mg BID (01/24 - - Pain management with [facility] (1-6) + IV Dilaudid increased back to 1mg q4h (- 10) only - Follow up CT abdomen/pelvis final report. Ordered simethicone 80mg x1 for gaseous pain and dilated bowels on imaging - GI to evaluate when to resume mesalamine - Physical therapy to continue working with the patient. Protein Calorie Malnutrition-improving Hypokalemia , recurrent The patient has had persistently low albumin level since prior to surgery. Likely due to decreased intake as well as losses 01/23 : total protein 5.3, albumin 3.2 01/25 : K 3.2 Plan: - IV albumin 25 g as needd if albumin <3.2 - Continue oral diet. On SSI for coverage - KCL 60 mEq ordered x1 Dyspnea/cough - resolved Plan: - Incentive spirometry at bedside - Chest physiotherapy qD Normocytic anemia - resolved Presented with hemoglobin of 7.8 that improved to 9.2 after 4 units PRBC, and is also status-post 1 unit FFP - 01/15 : Hb 12.2 , wnl : Stable, continue to monitor - 01/25 : Hb 8.7 -> 9.8 , MCV 80s Plan: Continue IV venofer 200mg qD x 5 days Health Maintenance Disposition: Telemetry DVT prophylaxis: Lovenox GI prophylaxis: Protonix 40 IV Diet: Dysphagia 3 CODE STATUS: Full code Plan of care discussed with attending Marlon Louis M.D. PGY2 Disclaimer: This note was dictated by speech recognition. Minor errors in medicine man may be present due to voice recognition software. Attending Provider Attestation/Addendum I have discussed and was present for the essential components of the history, physical examination, diagnosis, and treatment plan with the resident. I agree with the patient's care as documented by the resident and amended herein by me. Mundo Arenas DO. Although this document has been carefully reviewed, there may still be some phonetic and other typographical errors. These errors are purely grammatical due to imperfections in the software program and should not be construed in any way to compromise the substance of the patient's medical care during this visit.
[2025-01-25 15:17] LABS: Alanine Aminotransferase 27 U/L (10-49); Albumin, Serum 3.3 gm/dL (3.4-4.8); Alkaline Phosphatase 231 U/L (46-116); Aspartate Amino Transferase 32 U/L (0-34); Bilirubin,Direct 0.2 mg/dL (0.0-0.3); Bilirubin,Total 0.4 mg/dL (0.3-1.2); Total Protein 5.8 gm/dL (5.7-8.2)
[2025-01-25] MEDS: SODIUM CHLORIDE 0.9% 1000 ML 1,000 ML 80 ML IV (19:04)
--- NOTE | 2025-01-25 22:08 | PD.IMPROG ---
Documentation for date of: 01/25/25 Subjective Subjective Interval history: Patient evaluated CT scan of the abdomen pelvis shows biliary dilatation with a 4 mm stone in the common hepatic duct 3 mm stone in the common bile duct LFTs are absolutely normal Free fluid in the pelvis some dilatation of the small bowel close to the ileostomy Exam Vital Signs Temp Pulse Resp BP Pulse Ox O2 Del Method O2 Flow Rate 97.1 F 120 H 14 115/72 98 Room Air 2 01/25/25 20:00 01/25/25 20:00 01/25/25 20:00 01/25/25 20:00 01/25/25 20:00 01/25/25 20:00 01/24/25 07:42 FiO2 30 01/24/25 07:42 Objective Labs 01/25/25 05:24 01/25/25 05:24 Labs: Laboratory Results - last 24 hr 01/25/25 01/25/25 05:24 14:09 WBC 15.0 H RBC 3.27 L Hgb 9.8 L Hct 29.2 L MCV 89 MCH 30.0 MCHC 33.6 RDW Std Deviation 53.1 H Plt Count 632 H D Neut % (Auto) 86 H Lymph % (Auto) 9 L [place] % (Auto) 4 Eos % (Auto) 0 Baso % (Auto) 0 Neut # (Auto) 12.8 H Lymph # (Auto) 1.4 [place] # (Auto) 0.5 Eos # (Auto) 0.1 Baso # (Auto) 0.0 Immature Gran # (Auto) 0.22 H Absolute Nucleated RBC 0.00 Immature Gran % 2 H Nucleated RBC % 0 Sodium 132 L Potassium 3.2 L Chloride 92 L Carbon Dioxide 28.4 Anion Gap 12 BUN 6 L Creatinine 0.2 L Estim Creat Clear Calc 222.9 eGFR > 60 BUN/Creatinine Ratio 30 H Glucose 85 Calculated Osmolality 261 L Calcium 8.6 Corrected Calcium 9.2 Phosphorus 2.8 Magnesium 1.7 Total Bilirubin Cancelled 0.4 Direct Bilirubin Cancelled 0.2 AST Cancelled 32 ALT Cancelled 27 Alkaline Phosphatase Cancelled 231 H Total Protein Cancelled 5.8 Albumin 3.3 L 3.3 L Impressions Impression: # Abnormal CT scan imaging no need at the moment for an ERCP this can be done as an outpatient I do not think that is her major issue at the moment in the face of normal LFTs # No evidence of small bowel obstruction on clinical examination # pelvic free fluid consider Continue current management ABG Interpretation ABG results: 01/12/25 01/12/25 01/12/25 02:43 04:40 07:51 ABG pH 7.51 H 7.39 D 7.40 ABG pCO2 29 L 41 D 40 ABG pO2 235 H 145 H D 152 H ABG HCO3 23 25 25 ABG O2 Saturation 100 H 99 H 99 H ABG Base Excess 0 0 0 VBG pH VBG pCO2 VBG pO2 VBG Base Excess 01/13/25 01/15/25 04:17 11:51 ABG pH 7.32 L ABG pCO2 43 ABG pO2 137 H ABG HCO3 22 ABG O2 Saturation 99 H ABG Base Excess -4 L VBG pH 7.65 VBG pCO2 37 VBG pO2 75 H VBG Base Excess 18 H Assessment & Plan A&P Narrative cx neg. on zosyn for 3-4d post op or so. doing ok on unasyn for past several days. has been off steroid since 01/16 (last dose that day apparently) finishes iv unasyn today.ok with me i f you want her on po rx at home. that is a choice you can make. suggest po augmentin 875 bid for 5d more if you choose that approach, but I am ok with nothing. will see again prn Time Spent With Patient Time: Total time spent is greater than 50% in coordination of care (as documented) at patient's floor/unit and/or counseling patient:
[2025-01-26] VITALS (7 sets, daily range): BP systolic 108–119; BP diastolic 66–73; PULSE 107–127; RESP 12–18; TEMP 36.2–36.7; O2SAT 95–98; BMI 19.8; BMI 12.0; BMI 21.4
[2025-01-26] MEDS: SIMETHICONE 80 MG CHEW PO ×4 (00:36→18:29)
[2025-01-26] MEDS: HYDROmorphone INJ 2 MG/ML VIAL 1 MG IVP (03:23)
[2025-01-26 05:47] LABS: Basophils % (Auto) 0 % (0-2.5); Eosinophils # (Auto) 0.2 Thou/mm3 (0.0-0.5); Eosinophils % (Auto) 2 % (0-10); Hematocrit 30.3 % (36.0-46.0); Hemoglobin 9.8 g/dL (12.0-16.0); Immature Granulocytes % (Auto) 2 % (0-0); Immature Granulocytes Auto 0.18 Thou/mm3 (0.00-0.00); Lymphocytes # (Auto) 0.8 Thou/mm3 (1.0-4.8); Lymphocytes % (Auto) 9 % (10-50); Mean Corpuscular HGB Conc 32.3 g/dl (31.0-37.0); Mean Corpuscular Hemoglobin 29.4 pg (25.0-35.0); Mean Corpuscular Volume 91 fL (80-100); Monocytes # (Auto) 0.4 Thou/mm3 (0.0-0.8); Monocytes % (Auto) 4 % (0-12); Neutrophils # (Auto) 7.3 Thou/mm3 (1.8-7.7); Neutrophils % (Auto) 82 % (37-80); Nucleated Red Blood Cell % 0 /100 WBC (0); Platelet Count 715 Thou/mm3 (140-440); RDW Standard Deviation 52.4 fL (36.4-46.3); Red Blood Count 3.33 Miln/mm3 (4.00-5.20); White Blood Count 8.9 Thou/mm3 (3.6-11.0)
[2025-01-26 06:03] LABS: Alanine Aminotransferase 25 U/L (10-49); Albumin, Serum 3.3 gm/dL (3.4-4.8); Albumin/Globulin Ratio 1.4 (1.2-2.2); Alkaline Phosphatase 229 U/L (46-116); Anion Gap 8 (7-16); Aspartate Amino Transferase 17 U/L (0-34); BUN/Creatinine Ratio 30 Ratio (12-20); Bilirubin,Total 0.5 mg/dL (0.3-1.2); Blood Urea Nitrogen 6 mg/dL (9-23); Calcium 8.6 mg/dL (8.3-10.6); Calcium (Corrected) 9.2 mg/dL (8.5-10.1); Carbon Dioxide 32.8 mMol/L (20.0-31.0); Chloride 92 mMol/L (98-107); Creatinine (Component) 0.2 mg/dL (0.6-1.3); Estimated Creatinine Clearance 222.9 mL/min (>60); Globulin 2.4 gm/dL (2.3-3.5); Glucose 94 mg/dL (74-106); Osmolality,Calculated 263 (275-295); Potassium 3.1 mMol/L (3.4-5.1); Sodium 133 mMol/L (136-145); Total Protein 5.7 gm/dL (5.7-8.2); eGFR > 60 See Note
[2025-01-26] MEDS: HYDROcodone/APAP 10/325 TAB PO (08:20)
[2025-01-26] MEDS: AMOXICILLIN/POT CLAV 875 TABLET 1 TAB PO ×2 (09:08→20:16)
[2025-01-26] MEDS: ASCORBIC ACID 250 MG TABLET 500 MG PO ×2 (09:08→20:16)
[2025-01-26] MEDS: ZINC SULFATE 220 MG CAPSULE PO (09:09)
[2025-01-26] MEDS: VIT B12/Vit C/FA (Nephrovite) TABLET 1 TAB PO (09:09)
[2025-01-26] MEDS: ENOXAPARIN SOD INJ 40 MG/0.4 ML SYRINGE SC (09:10)
[2025-01-26] MEDS: POTASSIUM CHLORIDE 20 mEq TABCR 40 MEQ PO (09:10)
[2025-01-26] MEDS: POTASSIUM CHLORIDE 20 mEq TABCR PO (09:10)
[2025-01-26] MEDS: IRON SUCROSE CPLX INJ 20 MG/ML VIAL 5 ML 200 MG IVP (09:11)
[2025-01-26] MEDS: Magnesium Sulfate 4 GM Ivpb 4 GM/50 ML BAG IV (09:13)
--- NOTE | 2025-01-26 10:12 | ESPR_ITS ---
Documentation for date of: 01/26/25 Subjective Subjective Interval history: Patient seen at bedside. No acute overnight events. Had a repeat CT abdomen done which showed a 4 mm stone in the common hepatic duct and 3 mm in the common bile duct. Evaluated by GI Dr. Gamboa who does not need recommended additional interventions at this time as LFTs are normal. At bedside today, patient has no complaints except minimal pain, still tolerating diet. She did not ambulate with physical therapy yesterday, recommended for PT today. Labs reviewed, patient tachycardic still, hypokalemia and hypomagnesemia, will replete as necessary. Exam Vital Signs Temp Pulse Resp BP Pulse Ox O2 Del Method O2 Flow Rate 97.5 F 123 H 18 110/71 96 Room Air 2 01/26/25 08:00 01/26/25 08:10 01/26/25 08:10 01/26/25 08:00 01/26/25 08:10 01/26/25 08:00 01/24/25 07:42 FiO2 30 01/24/25 07:42 Narrative Exam GENERAL: AAOX3 NEURO: MANAGER DISTRIBUTION grossly intact, moves extremities x4 HEENT: Moist mucosa. Eyes open, symmetrical, & clear. CARDIO: No chest pain on palpation. Heart RRR, no obvious murmurs PULM: No noted coughing/dyspnea. Lungs CTA B/L GI: Abdomen soft, nondistended, no pain on palpation. Incisional site clean, no discharge. Ileostomy functioning well. Normoactive bowel sounds URO/BLOOD BANK BUSINESS MANAGER:: No further abnormalities noted. SKIN/MSK/EXT: No wounds/rashes/edema/amputations, no pain on palpation. Pedal pulses present B/L Objective Labs 01/26/25 04:45 01/26/25 04:45 Labs: Laboratory Results - last 24 hr 01/25/25 01/25/25 01/26/25 05:24 14:09 04:45 WBC 8.9 D RBC 3.33 L Hgb 9.8 L Hct 30.3 L MCV 91 MCH 29.4 MCHC 32.3 RDW Std Deviation 52.4 H Plt Count 715 H D Neut % (Auto) 82 H Lymph % (Auto) 9 L [place] % (Auto) 4 Eos % (Auto) 2 Baso % (Auto) 0 Neut # (Auto) 7.3 Lymph # (Auto) 0.8 L [place] # (Auto) 0.4 Eos # (Auto) 0.2 Baso # (Auto) 0.0 Immature Gran # (Auto) 0.18 H Absolute Nucleated RBC 0.00 Immature Gran % 2 H Nucleated RBC % 0 Sodium 133 L Potassium 3.1 L Chloride 92 L Carbon Dioxide 32.8 H Anion Gap 8 BUN 6 L Creatinine 0.2 L Estim Creat Clear Calc 222.9 eGFR > 60 BUN/Creatinine Ratio 30 H Glucose 94 Calculated Osmolality 263 L Calcium 8.6 Corrected Calcium 9.2 Total Bilirubin Cancelled 0.4 0.5 Direct Bilirubin Cancelled 0.2 AST Cancelled 32 17 ALT Cancelled 27 25 Alkaline Phosphatase Cancelled 231 H 229 H Total Protein Cancelled 5.8 5.7 Albumin 3.3 L 3.3 L 3.3 L Globulin 2.4 Albumin/Globulin Ratio 1.4 ABG Interpretation ABG results: 01/12/25 01/12/25 01/12/25 02:43 04:40 07:51 ABG pH 7.51 H 7.39 D 7.40 ABG pCO2 29 L 41 D 40 ABG pO2 235 H 145 H D 152 H ABG HCO3 23 25 25 ABG O2 Saturation 100 H 99 H 99 H ABG Base Excess 0 0 0 VBG pH VBG pCO2 VBG pO2 VBG Base Excess 01/13/25 01/15/25 04:17 11:51 ABG pH 7.32 L ABG pCO2 43 ABG pO2 137 H ABG HCO3 22 ABG O2 Saturation 99 H ABG Base Excess -4 L VBG pH 7.65 VBG pCO2 37 VBG pO2 75 H VBG Base Excess 18 H Quality Measures Quality Measures VTE prophylaxis Assessment & Plan Assessment Current Active Medications: Generic Name Dose Route Start Last Admin Trade Name Freq PRN Reason Stop Dose Admin Hydrocodone Bitart/Acetaminophen 1 tab 01/22/25 09:43 01/26/25 08:20 Hydrocodone/Apap 10/325 Tab PO 01/27/25 09:42 1 tab Q6HR PRN Administration Pain 1-6 Albuterol/Ipratropium 3 ml 01/16/25 11:56 01/16/25 12:04 Albuterol/Ipratropium (Duoneb) Rt Bambi 3 Ml Nebu INH 02/15/25 14:59 3 ml Q4HRRT PRN Administration SHORTNESS OF BREATH OR WHEEZE Amoxicillin/Clavulanate Potassium 1 tab 01/25/25 10:30 01/26/25 09:08 Amoxicillin/Pot Clav 875 Tablet PO 02/01/25 10:29 1 tab BID CAMERON Administration Ascorbic Acid 500 mg 01/18/25 10:30 01/26/25 09:08 Ascorbic Acid 250 Mg Tablet PO 02/17/25 10:29 500 mg BID CAMERON Administration Dextrose 50 ml 01/13/25 06:35 Dextrose 50%-Water Inj 50 Ml Syringe IV 02/12/25 06:34 Q15MIN PRN BG <50 OR BG <70 & pt unresponsive Enoxaparin Sodium 40 mg 01/16/25 09:00 01/26/25 09:10 Enoxaparin Sod Inj 40 Mg/0.4 Ml Syringe SC 01/30/25 08:59 40 mg QDAY CAMERON Administration Glucagon 1 mg 01/13/25 06:35 Glucagon Inj 1 Mg Vial IM Q15MIN PRN BG <70, and no IV access Hydromorphone HCl 1 mg 01/25/25 09:44 01/26/25 03:23 Hydromorphone Inj 2 Mg/Ml Vial IVP 01/29/25 16:20 1 mg Q4HR PRN Administration PAIN SCALE 7-10 (Severe Magnesium Sulfate 4 gm in 50 mls @ 12.5 mls/hr 01/26/25 07:18 01/26/25 09:13 Magnesium Sulfate Ivpb IV 01/26/25 11:17 12.5 mls/hr X1 ONE Administration Insulin Human Lispro 0 unit 01/21/25 11:30 01/26/25 09:31 Insulin Lispro (Admelog) 1 Unit/0.01 Ml Unit SC 02/20/25 11:29 Not Given AC [facility] Protocol Iron Sucrose 200 mg 01/24/25 09:00 01/26/25 09:11 Iron Sucrose Cplx Inj 20 Mg/Ml Vial 5 Ml IVP 01/28/25 08:59 200 mg DAILY CAMERON Administration Simethicone 80 mg 01/25/25 19:15 01/26/25 05:25 Simethicone 80 Mg Chew PO 02/24/25 19:14 80 mg Q6HR CAMERON Administration Vitamin B Complex/Vit C/Folic Acid 1 tab 01/20/25 10:15 01/26/25 09:09 Vit B12/Vit C/Fa (Nephrovite) Tablet PO 02/19/25 10:14 1 tab QDAY CAMERON Administration Zinc Sulfate 220 mg 01/18/25 10:30 01/26/25 09:09 Zinc Sulfate 220 Mg Capsule PO 02/17/25 10:29 220 mg QDAY CAMERON Administration Plan Summary: The patient is a 59-year-old female with past medical history of inflammatory bowel disease/ulcerative colitis on chronic steroids that was recently discharged on 12/21/2024 for IBS flareup and admitted on 01/11 for pneumoperitoneum requiring emergent ex-lap. Found to have multiple areas of small and large bowel perforation with feculent peritonitis as well as coloenteric fistulas. Underwent subtotal colectomy on 01/11 and subsequently admitted to the ICU for further management. patient was downgraded to medical floors on 01/15 for furtehr management. 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 Crohn's - CT on admission: pneumoperitoneum and went to OR emergently. Found to have multiple bowel perforations in small and large intestine causing feculent peritonitis. - 01/11: First operation with bowel resection and second - 01/12: Blood cultures : Negative - 01/14: small bowel anastomosis with end ileostomy, cholecystectomy, and abdominal washout with closure. She was extubated in PACU and then returned to ICU - 01/16: Continue with Ice chips (ok with Surgeon), pain control, will wean down off dilaudid pump. Will need to wean off TPN at some point - 01/18: Started on clear liquid diet, tolerating well. Will work on weaning off CHEMICAL ETCH OPERATOR and TPN. - 01/19: Diet advanced, no nausea/vomiting, minimal pain attributed to dairy intake. Will wean off CHEMICAL ETCH OPERATOR and TPN - 01/20: Diet has been advanced to dysphagia [address] Crooks. Patient is tolerating current diet, no abdominal pain, nausea or vomiting. - 01/21: Tolerating dysphagia 2 diet well and drinking Ensure in between meals. Ileostomy is functioning well. Abdo pain occurs 30-40 mins after meals but improves with IV pain medicines. - 01/22: She still reports some pain, before and after meals but is tolerating feeding without nausea or vomiting. Pain management on [place] - 01/23: Reports that she is doing significantly better, had a decent sized breakfast this morning, tolerated well-no abdominal pain right after, no nausea or vomiting. On examination, abdomen is slightly tender. Ileostomy functioning well. Labs reviewed, WBC uptrended to 25. Per ID recs, will continue IV Unasyn. Patient working with physical therapy, progress noted. Will slowly wean off IV pain medications -01/24: Patient is doing well on her diet, no nausea or vomiting, pain is improving. She still little tachycardic, possibly pain related. Labs reviewed, WBC downtrending at 19 today and hemoglobin dropped to 8.7 but patient has no bleeding noted. Evaluated by ID today, will complete IV Unasyn. - 01/25: pain is worse. IV dilaudid increased back to 1mg. CT abdomen/pelvis w/ contrast ordered to evaluate abdominal tenderness and worsening clinical status. WBC downtrending 25 -> 19 -> 15, patient remains afebrile. - 01/26: Had a repeat CT abdomen done which showed a 4 mm stone in the common hepatic duct and 3 mm in the common bile duct. Evaluated by GI Dr. Gamboa who does not need recommended additional interventions at this time as LFTs are normal. At bedside today, patient has no complaints except minimal pain, still tolerating diet. She did not ambulate with physical therapy yesterday, recommended for PT today Plan: - Continue Augmentin - Dr Crooks following, appreciate input - Pain management with [place] (1-6) + IV Dilaudid (7-10) only. - GI to evaluate when to resume mesalamine - Physical therapy to continue working with the patient. #Protein Calorie Malnutrition-improving #Hypokalemia - recurrent #Hypomagnesemia The patient has had persistently low albumin level since prior to surgery. Likely due to decreased intake as well as losses 01/23-total protein 5.3, albumin 3.2 01/26/2025: Potassium- 3.1, Mg- 1.7 Plan: - IV albumin 25 g x1 given - Continue oral diet #Dyspnea- resolved #Cough- resolved Plan: - Incentive spirometry at bedside - Chest physiotherapy qD #Reactive Leukocytosis- resolved WBC : 29 -> 24 -> 22 -> 23.9 Likely secondary to steroid use WBC today: 8.9 Plan: - Discontinued steroids as patient is on broad spectrum antibiotics. - On PO antibiotics #Normocytic anemia - resolved Presented with hemoglobin of 7.8 that improved to 9.2 after 4 units PRBC, and is also status-post 1 unit FFP - 01/15 : Hb 12.2 , wnl : Stable, continue to monitor Health Maintenance Disposition: Telemetry DVT prophylaxis: Lovenox GI prophylaxis: Protonix 40 IV Diet: Dysphagia 3 CODE STATUS: Full code Case was discussed with Dr Kevin PGY-2 and attending physician, Dr Dagoberto Hernandez MD PGY-1 LPatient examined and case discussed with the team including attending physician. Note reviewed, I agree with the care plan as documented. Ms. Smith is a 59-year-old female with history of severe ulcerative colitis who was admitted with acute flare, colocolonic fistula and pneumoperitoneum requiring urgent laparotomy. Patient is status post subtotal colectomy DAY 13. Plan: - Tolerating dysphagia 3 diet, supplemental Ensure protein drinks. - Pain is controlled with oral [place] 10->5mg q3H + IV Dilaudid 1->0.5mg q3H. Goal to transition to PO [place] only. - Dr. Crooks following closely, appreciate recommendations. Wound care ordered to manage surgical site closely. - Physical therapy to continue working with the patient, ambulation encouraged. Dispo: Anticipate DC in 24-48 hours - Marlon Kevin MD, PGY 2 Disclaimer: The document may contain phonetic/typographic errors due to voice recognition software. These errors are purely due to imperfections in the software program and should not be misconstrued in any way to compromise the substance of the patient's medical care during this visit. L Attending Provider Attestation/Addendum I have discussed and was present for the essential components of the history, physical examination, diagnosis, and treatment plan with the resident. I agree with the patient's care as documented by the resident and amended herein by me. Mundo Arenas DO. Patient seen and evaluated this AM. No acute events overnight, vital signs stable, patient afebrile. WBC normalized, hemoglobin stable 9.8 today, platelets up trended to 715. Potassium low at 3.1 todaywhich will be repleated. CT abdomen pelvis ordered yesterday due to complaints of continued severe abdominal pain, which demonstrated bibasilar pneumonia, extra and intrahepatic biliary dilation with a 4 mm stone in the common hepatic duct and a 3 mm stone in the common bile duct however these were not concerning to gastroenterology, due to the size they would likely pass on their own. Significant free fluid was also demonstrated in the pelvis. A small bowel obstruction pattern was also noted however this did not correlate clinically, the patient's ileostomy is functioning well. Patient is now postop day 14 from her subtotal colectomy with en bloc partial small bowel resection and postop day 12 for reexploration, SB anastomosis and cholecystectomy. The patient has been refusing PT and wanting more pain meds however we did reduce those today, I also encouraged the patient again, to get up try to ambulate at least get up to the chair today which she agreed to. This was also discussed with the patient's family on numerous occasions. Will continue to monitor closely, likely DC in a couple of days pending specialist recommendations and patient's continued improvement. Although this document has been carefully reviewed, there may still be some phonetic and other typographical errors. These errors are purely grammatical due to imperfections in the software program and should not be construed in any way to compromise the substance of the patient's medical care during this visit.
[2025-01-26] MEDS: HYDROmorphone INJ 2 MG/ML VIAL 0.5 MG IVP ×3 (10:52→19:54)
[2025-01-26 11:27] LABS: Path Review Blood Smear Sent to Pathologist
--- NOTE | 2025-01-26 13:27 | PD.SURPROG ---
Documentation for date of: 01/26/25 Subjective Subjective Narrative: Patient is seen and examined. She is feeling better today. She is tolerating diet without nausea or vomiting Exam Vital Signs Temp Pulse Resp BP Pulse Ox O2 Del Method O2 Flow Rate 97.1 F 108 H 18 112/73 97 Room Air 2 01/26/25 12:00 01/26/25 12:00 01/26/25 12:00 01/26/25 12:00 01/26/25 12:00 01/26/25 12:00 01/24/25 07:42 FiO2 30 01/24/25 07:42 Constitutional Constitutional: no acute distress Routine Abdominal Exam Comments: Abdomen is soft and nondistended. Incision is clean, dry and intact. Ileostomy is functioning Assessment & Plan Assessment Additional comments: Clinically patient is improving. Fluid collection CT scan is of no consequences, likely postoperative. Small stones in CBD, she has normal LFTs, do not recommend intervention at this time Plan Regular diet and Ensure supplements. Physical therapy to assist in ambulation Procedures Procedures Exploratory laparotomy, small bowel anastomosis with end ileostomy Cholecystectomy Abdominal washout and closure
[2025-01-26] MEDS: HYDROcodone/APAP 5/325 TABLET 1 TAB PO (14:23)
--- NOTE | 2025-01-26 21:51 | ESPR_ITS ---
Documentation for date of: 01/26/25 Subjective Subjective Interval history: Patient clinically improving White count is down to normal 8.9 LFTs remain normal Able to tolerate diet Exam Vital Signs Temp Pulse Resp BP Pulse Ox O2 Del Method O2 Flow Rate 98.0 F 118 H 17 110/66 96 Room Air 2 01/26/25 20:00 01/26/25 20:00 01/26/25 20:00 01/26/25 20:00 01/26/25 20:00 01/26/25 20:00 01/24/25 07:42 FiO2 30 01/24/25 07:42 Objective Labs 01/26/25 04:45 01/26/25 04:45 Labs: Laboratory Results - last 24 hr 01/26/25 04:45 WBC 8.9 D RBC 3.33 L Hgb 9.8 L Hct 30.3 L MCV 91 MCH 29.4 MCHC 32.3 RDW Std Deviation 52.4 H Plt Count 715 H D Neut % (Auto) 82 H Lymph % (Auto) 9 L [place] % (Auto) 4 Eos % (Auto) 2 Baso % (Auto) 0 Neut # (Auto) 7.3 Lymph # (Auto) 0.8 L [place] # (Auto) 0.4 Eos # (Auto) 0.2 Baso # (Auto) 0.0 Immature Gran # (Auto) 0.18 H Absolute Nucleated RBC 0.00 Immature Gran % 2 H Nucleated RBC % 0 Smear Path Review Sent to Pathologist Sodium 133 L Potassium 3.1 L Chloride 92 L Carbon Dioxide 32.8 H Anion Gap 8 BUN 6 L Creatinine 0.2 L Estim Creat Clear Calc 222.9 eGFR > 60 BUN/Creatinine Ratio 30 H Glucose 94 Calculated Osmolality 263 L Calcium 8.6 Corrected Calcium 9.2 Total Bilirubin 0.5 AST 17 ALT 25 Alkaline Phosphatase 229 H Total Protein 5.7 Albumin 3.3 L Globulin 2.4 Albumin/Globulin Ratio 1.4 Impressions Impression: Leukocytosis improving Abnormal MRCP but no need for an emergent ERCP as LFTs are normal Advance diet Continue physical therapy ABG Interpretation ABG results: 01/12/25 01/12/25 01/12/25 02:43 04:40 07:51 ABG pH 7.51 H 7.39 D 7.40 ABG pCO2 29 L 41 D 40 ABG pO2 235 H 145 H D 152 H ABG HCO3 23 25 25 ABG O2 Saturation 100 H 99 H 99 H ABG Base Excess 0 0 0 VBG pH VBG pCO2 VBG pO2 VBG Base Excess 01/13/25 01/15/25 04:17 11:51 ABG pH 7.32 L ABG pCO2 43 ABG pO2 137 H ABG HCO3 22 ABG O2 Saturation 99 H ABG Base Excess -4 L VBG pH 7.65 VBG pCO2 37 VBG pO2 75 H VBG Base Excess 18 H Assessment & Plan A&P Narrative cx neg. on zosyn for 3-4d post op or so. doing ok on unasyn for past several days. has been off steroid since 01/16 (last dose that day apparently) finishes iv unasyn today.ok with me i f you want her on po rx at home. that is a choice you can make. suggest po augmentin 875 bid for 5d more if you choose that approach, but I am ok with nothing. will see again prn Time Spent With Patient Time: Total time spent is greater than 50% in coordination of care (as documented) at patient's floor/unit and/or counseling patient:
[2025-01-27] VITALS (9 sets, daily range): BP systolic 95–118; BP diastolic 64–88; PULSE 111–132; RESP 16–23; TEMP 36.1–37.1; O2SAT 97–98; BMI 21.4
[2025-01-27] MEDS: HYDROmorphone INJ 2 MG/ML VIAL 0.5 MG IVP ×5 (00:02→23:27)
[2025-01-27] MEDS: SIMETHICONE 80 MG CHEW PO ×5 (00:02→23:28)
[2025-01-27 05:37] LABS: Basophils # (Auto) 0.1 Thou/mm3 (0.0-0.2); Basophils % (Auto) 1 % (0-2.5); Eosinophils # (Auto) 0.3 Thou/mm3 (0.0-0.5); Eosinophils % (Auto) 2 % (0-10); Hematocrit 29.5 % (36.0-46.0); Hemoglobin 9.6 g/dL (12.0-16.0); Immature Granulocytes % (Auto) 4 % (0-0); Lymphocytes # (Auto) 1.6 Thou/mm3 (1.0-4.8); Lymphocytes % (Auto) 13 % (10-50); Mean Corpuscular HGB Conc 32.5 g/dl (31.0-37.0); Mean Corpuscular Hemoglobin 29.4 pg (25.0-35.0); Mean Corpuscular Volume 90 fL (80-100); Monocytes # (Auto) 0.5 Thou/mm3 (0.0-0.8); Monocytes % (Auto) 4 % (0-12); Neutrophils # (Auto) 9.3 Thou/mm3 (1.8-7.7); Neutrophils % (Auto) 76 % (37-80); Nucleated Red Blood Cell % 0 /100 WBC (0); Platelet Count 734 Thou/mm3 (140-440); RDW Standard Deviation 53.2 fL (36.4-46.3); Red Blood Count 3.27 Miln/mm3 (4.00-5.20); White Blood Count 12.3 Thou/mm3 (3.6-11.0)
[2025-01-27] MEDS: HYDROcodone/APAP 5/325 TABLET 1 TAB PO ×3 (06:12→20:41)
[2025-01-27 06:28] LABS: Alanine Aminotransferase 24 U/L (10-49); Albumin, Serum 3.4 gm/dL (3.4-4.8); Albumin/Globulin Ratio 1.4 (1.2-2.2); Alkaline Phosphatase 208 U/L (46-116); Anion Gap 7 (7-16); Aspartate Amino Transferase 17 U/L (0-34); BUN/Creatinine Ratio 35 Ratio (12-20); Bilirubin,Total 0.4 mg/dL (0.3-1.2); Blood Urea Nitrogen 7 mg/dL (9-23); Calcium 8.5 mg/dL (8.3-10.6); Carbon Dioxide 30.1 mMol/L (20.0-31.0); Chloride 94 mMol/L (98-107); Creatinine (Component) 0.2 mg/dL (0.6-1.3); Estimated Creatinine Clearance 222.9 mL/min (>60); Globulin 2.4 gm/dL (2.3-3.5); Glucose 92 mg/dL (74-106); Osmolality,Calculated 260 (275-295); Potassium 4.4 mMol/L (3.4-5.1); Sodium 131 mMol/L (136-145); Total Protein 5.8 gm/dL (5.7-8.2); eGFR > 60 See Note
[2025-01-27] MEDS: ENOXAPARIN SOD INJ 40 MG/0.4 ML SYRINGE SC (08:32)
[2025-01-27] MEDS: ZINC SULFATE 220 MG CAPSULE PO (08:33)
[2025-01-27] MEDS: IRON SUCROSE CPLX INJ 20 MG/ML VIAL 5 ML 200 MG IVP (08:33)
[2025-01-27] MEDS: ASCORBIC ACID 250 MG TABLET 500 MG PO ×2 (08:33→20:41)
[2025-01-27] MEDS: AMOXICILLIN/POT CLAV 875 TABLET 1 TAB PO ×2 (08:33→20:41)
--- NOTE | 2025-01-27 10:50 | ESPR_ITS ---
Documentation for date of: 01/27/25 Subjective Subjective Interval history: No overnight events. Patient seen and examined at bedside. Patient appears distressed, complaining of severe abdominal pain and lower back pain. Denies chest pain, shortness of breath, fevers. Notes continued weakness. Discussed pain management with patient encourage patient to participate in physical therapy. Pending [facility] authorization for rehab. Exam Vital Signs Temp Pulse Resp BP Pulse Ox O2 Del Method O2 Flow Rate 97.5 F 118 H 17 107/66 97 Room Air 2 01/27/25 08:00 01/27/25 08:13 01/27/25 08:13 01/27/25 08:00 01/27/25 08:13 01/27/25 08:00 01/24/25 07:42 FiO2 30 01/24/25 07:42 Narrative Exam PE: Gen: Well-developed and well-nourished. Appears distressed. HEENT: NCAT, PERRLA, EOMI, MMM, anicteric conjunctivae. CVS: normal S1 and S2. RRR. No M/R/G. Resp: CTA B/L. No rhonchi, rales, crackles or wheezing. Abd: soft, non-distended. Ileostomy functioning well. Patient tender to mild palpation. Incision site clean, dry, intact. MSK: Good ROM in BUE & BLE. No edema or rash. Neuro: CN II-XII grossly intact. Strength 5/5 in BUE & BLE. Alert and oriented x3. Objective Labs 01/27/25 04:41 01/27/25 04:41 Labs: Laboratory Results - last 24 hr 01/26/25 01/27/25 04:45 04:41 WBC 12.3 H RBC 3.27 L Hgb 9.6 L Hct 29.5 L MCV 90 MCH 29.4 MCHC 32.5 RDW Std Deviation 53.2 H Plt Count 734 H Neut % (Auto) 76 Lymph % (Auto) 13 [place] % (Auto) 4 Eos % (Auto) 2 Baso % (Auto) 1 Neut # (Auto) 9.3 H Lymph # (Auto) 1.6 [place] # (Auto) 0.5 Eos # (Auto) 0.3 Baso # (Auto) 0.1 Immature Gran # (Auto) 0.50 H Absolute Nucleated RBC 0.00 Immature Gran % 4 H Nucleated RBC % 0 Smear Path Review Sent to Pathologist Sodium 131 L Potassium 4.4 D Chloride 94 L Carbon Dioxide 30.1 Anion Gap 7 BUN 7 L Creatinine 0.2 L Estim Creat Clear Calc 222.9 eGFR > 60 BUN/Creatinine Ratio 35 H Glucose 92 Calculated Osmolality 260 L Calcium 8.5 Corrected Calcium 9.0 Total Bilirubin 0.4 AST 17 ALT 24 Alkaline Phosphatase 208 H D Total Protein 5.8 Albumin 3.4 Globulin 2.4 Albumin/Globulin Ratio 1.4 ABG Interpretation ABG results: 01/12/25 01/12/25 01/12/25 02:43 04:40 07:51 ABG pH 7.51 H 7.39 D 7.40 ABG pCO2 29 L 41 D 40 ABG pO2 235 H 145 H D 152 H ABG HCO3 23 25 25 ABG O2 Saturation 100 H 99 H 99 H ABG Base Excess 0 0 0 VBG pH VBG pCO2 VBG pO2 VBG Base Excess 01/13/25 01/15/25 04:17 11:51 ABG pH 7.32 L ABG pCO2 43 ABG pO2 137 H ABG HCO3 22 ABG O2 Saturation 99 H ABG Base Excess -4 L VBG pH 7.65 VBG pCO2 37 VBG pO2 75 H VBG Base Excess 18 H Quality Measures Quality Measures VTE prophylaxis Assessment & Plan Assessment Current Active Medications: Generic Name Dose Route Start Last Admin Trade Name Freq PRN Reason Stop Dose Admin Hydrocodone Bitart/Acetaminophen 1 tab 01/26/25 11:00 01/27/25 06:12 Hydrocodone/Apap 5/325 Tablet PO 01/31/25 10:59 1 tab Q3HR PRN Administration Pain 4-6 Albuterol/Ipratropium 3 ml 01/16/25 11:56 01/16/25 12:04 Albuterol/Ipratropium (Duoneb) Rt Bambi 3 Ml Nebu INH 02/15/25 14:59 3 ml Q4HRRT PRN Administration SHORTNESS OF BREATH OR WHEEZE Amoxicillin/Clavulanate Potassium 1 tab 01/25/25 10:30 01/27/25 08:33 Amoxicillin/Pot Clav 875 Tablet PO 02/01/25 10:29 1 tab BID CAMERON Administration Ascorbic Acid 500 mg 01/18/25 10:30 01/27/25 08:33 Ascorbic Acid 250 Mg Tablet PO 02/17/25 10:29 500 mg BID CAMERON Administration Dextrose 50 ml 01/13/25 06:35 Dextrose 50%-Water Inj 50 Ml Syringe IV 02/12/25 06:34 Q15MIN PRN BG <50 OR BG <70 & pt unresponsive Enoxaparin Sodium 40 mg 01/16/25 09:00 01/27/25 08:32 Enoxaparin Sod Inj 40 Mg/0.4 Ml Syringe SC 01/30/25 08:59 40 mg QDAY CAMERON Administration Glucagon 1 mg 01/13/25 06:35 Glucagon Inj 1 Mg Vial IM Q15MIN PRN BG <70, and no IV access Hydromorphone HCl 0.5 mg 01/26/25 10:38 01/27/25 03:02 Hydromorphone Inj 2 Mg/Ml Vial IVP 01/30/25 09:43 0.5 mg Q3HR PRN Administration PAIN SCALE 7-10 (Severe Insulin Human Lispro 0 unit 01/21/25 11:30 01/27/25 07:50 Insulin Lispro (Admelog) 1 Unit/0.01 Ml Unit SC 02/20/25 11:29 Not Given AC [facility] Protocol Iron Sucrose 200 mg 01/24/25 09:00 01/27/25 08:33 Iron Sucrose Cplx Inj 20 Mg/Ml Vial 5 Ml IVP 01/28/25 08:59 200 mg DAILY CAMERON Administration Simethicone 80 mg 01/25/25 19:15 01/27/25 06:12 Simethicone 80 Mg Chew PO 02/24/25 19:14 80 mg Q6HR CAMERON Administration Zinc Sulfate 220 mg 01/18/25 10:30 01/27/25 08:33 Zinc Sulfate 220 Mg Capsule PO 02/17/25 10:29 220 mg QDAY CAMERON Administration Plan 59-year-old female with past medical history of inflammatory bowel disease/ulcerative colitis on chronic steroids that was recently discharged on 12/21/2024 for IBS flareup and admitted on 01/11 for pneumoperitoneum requiring emergent ex-lap. Found to have multiple areas of small and large bowel perforation with feculent peritonitis as well as coloenteric fistulas. Underwent subtotal colectomy on 01/11 and subsequently admitted to the ICU for further management. patient was downgraded to medical floors on 2/17 for furtehr management. 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 Crohn's - CT on admission: pneumoperitoneum and went to OR emergently. Found to have multiple bowel perforations in small and large intestine causing feculent peritonitis. - 01/11: First operation with bowel resection and second - 01/12: Blood cultures : Negative - 01/14: small bowel anastomosis with end ileostomy, cholecystectomy, and abdominal washout with closure. She was extubated in PACU and then returned to ICU - 01/16: Continue with Ice chips (ok with Surgeon), pain control, will wean down off dilaudid pump. Will need to wean off TPN at some point - 01/18: Started on clear liquid diet, tolerating well. Will work on weaning off [employer] and TPN. - 01/19: Diet advanced, no nausea/vomiting, minimal pain attributed to dairy intake. Will wean off [employer] and TPN - 01/20: Diet has been advanced to dysphagia [address] Crooks. Patient is tolerating current diet, no abdominal pain, nausea or vomiting. - 01/21: Tolerating dysphagia 2 diet well and drinking Ensure in between meals. Ileostomy is functioning well. Abdo pain occurs 30-40 mins after meals but improves with IV pain medicines. - 01/22: She still reports some pain, before and after meals but is tolerating feeding without nausea or vomiting. Pain management on [place] - 01/23: Reports that she is doing significantly better, had a decent sized breakfast this morning, tolerated well-no abdominal pain right after, no nausea or vomiting. On examination, abdomen is slightly tender. Ileostomy functioning well. Labs reviewed, WBC uptrended to 25. Per ID recs, will continue IV Unasyn. Patient working with physical therapy, progress noted. Will slowly wean off IV pain medications -01/24: Patient is doing well on her diet, no nausea or vomiting, pain is improving. She still little tachycardic, possibly pain related. Labs reviewed, WBC downtrending at 19 today and hemoglobin dropped to 8.7 but patient has no bleeding noted. Evaluated by ID today, will complete IV Unasyn. - 01/25: pain is worse. IV dilaudid increased back to 1mg. CT abdomen/pelvis w/ contrast ordered to evaluate abdominal tenderness and worsening clinical status. WBC downtrending 25 -> 19 -> 15, patient remains afebrile. - 01/26: Had a repeat CT abdomen done which showed a 4 mm stone in the common hepatic duct and 3 mm in the common bile duct. Evaluated by GI Dr. Gamboa who does not need recommended additional interventions at this time as LFTs are normal. At bedside today, patient has no complaints except minimal pain, still tolerating diet. She did not ambulate with physical therapy yesterday, recommended for PT today -Continue Augmentin -Dr Crooks following, appreciate input -Pain management with [place] (1-6) + IV Dilaudid (7-10) only. -GI to evaluate when to resume mesalamine -Physical therapy to continue working with the patient. -Patient to be discharged to SNF for continued rehab, pending authorization #Protein Calorie Malnutrition-improving #Hypokalemia - recurrent #Hypomagnesemia The patient has had persistently low albumin level since prior to surgery. Likely due to decreased intake as well as losses Dietary recommendations appreciated 01/23-total protein 5.3, albumin 3.2 01/26/2025: Potassium- 3.1, Mg- 1.7 -IV albumin 25 g x1 given -Continue oral diet #Dyspnea- resolved #Cough- resolved -Incentive spirometry at bedside -Chest physiotherapy qD #Reactive Leukocytosis- resolved WBC : 29 -> 24 -> 22 -> 23.9 Likely secondary to steroid use WBC today: 8.9 -Discontinued steroids as patient is on broad spectrum antibiotics. -On PO antibiotics #Normocytic anemia - resolved Presented with hemoglobin of 7.8 that improved to 9.2 after 4 units PRBC, and is also status-post 1 unit FFP -01/15 : Hb 12.2 , wnl : Stable, continue to monitor Disposition: Telemetry DVT prophylaxis: Lovenox GI prophylaxis: Protonix 40 IV Diet: Dysphagia 3 CODE STATUS: Full code Plan of care discussed with attending Dr. Pang. Ridge Hackett MD PGY-1 Attending Provider Attestation/Addendum Patient seen and examined. Not completely participating with physical therapy very well because she is experiencing abdominal pain. Latest CT showed fluid filled loops of bowel. will need follow up from surgical team. Will conintnue IV pain meds prn. dicussed with RN at bedside today.
--- NOTE | 2025-01-27 19:02 | PC.NURSE ---
MD Called for purulent- looking discharge coming from incision. Culture obtained be order.
--- NOTE | 2025-01-27 21:51 | ESPR_ITS ---
Documentation for date of: 01/27/25 Subjective Subjective Interval history: Patient evaluated hemoglobin hematocrit 9.6 and 29.5 with a WBC count of 12.3 albumin 3.4 patient becomes Tachycardic during physical therapy I told her to keep trying Waiting for rehab assignment I would recommend [facility] they will extensively work with her Exam Vital Signs Temp Pulse Resp BP Pulse Ox O2 Del Method O2 Flow Rate 97.4 F 126 H 19 101/76 97 Room Air 2 01/27/25 20:00 01/27/25 20:00 01/27/25 20:00 01/27/25 20:00 01/27/25 20:00 01/27/25 20:00 01/27/25 12:00 FiO2 30 01/27/25 12:00 Objective Labs 01/27/25 04:41 01/27/25 04:41 Labs: Laboratory Results - last 24 hr 01/27/25 04:41 WBC 12.3 H RBC 3.27 L Hgb 9.6 L Hct 29.5 L MCV 90 MCH 29.4 MCHC 32.5 RDW Std Deviation 53.2 H Plt Count 734 H Neut % (Auto) 76 Lymph % (Auto) 13 [place] % (Auto) 4 Eos % (Auto) 2 Baso % (Auto) 1 Neut # (Auto) 9.3 H Lymph # (Auto) 1.6 [place] # (Auto) 0.5 Eos # (Auto) 0.3 Baso # (Auto) 0.1 Immature Gran # (Auto) 0.50 H Absolute Nucleated RBC 0.00 Immature Gran % 4 H Nucleated RBC % 0 Sodium 131 L Potassium 4.4 D Chloride 94 L Carbon Dioxide 30.1 Anion Gap 7 BUN 7 L Creatinine 0.2 L Estim Creat Clear Calc 222.9 eGFR > 60 BUN/Creatinine Ratio 35 H Glucose 92 Calculated Osmolality 260 L Calcium 8.5 Corrected Calcium 9.0 Total Bilirubin 0.4 AST 17 ALT 24 Alkaline Phosphatase 208 H D Total Protein 5.8 Albumin 3.4 Globulin 2.4 Albumin/Globulin Ratio 1.4 Impressions Impression: Status post exploratory laparotomy with subtotal colectomy An en bloc resection of the small bowel with ileostomy Leukocytosis Continue current management ABG Interpretation ABG results: 01/12/25 01/12/25 01/12/25 02:43 04:40 07:51 ABG pH 7.51 H 7.39 D 7.40 ABG pCO2 29 L 41 D 40 ABG pO2 235 H 145 H D 152 H ABG HCO3 23 25 25 ABG O2 Saturation 100 H 99 H 99 H ABG Base Excess 0 0 0 VBG pH VBG pCO2 VBG pO2 VBG Base Excess 01/13/25 01/15/25 04:17 11:51 ABG pH 7.32 L ABG pCO2 43 ABG pO2 137 H ABG HCO3 22 ABG O2 Saturation 99 H ABG Base Excess -4 L VBG pH 7.65 VBG pCO2 37 VBG pO2 75 H VBG Base Excess 18 H Assessment & Plan A&P Narrative cx neg. on zosyn for 3-4d post op or so. doing ok on unasyn for past several days. has been off steroid since 01/16 (last dose that day apparently) finishes iv unasyn today.ok with me i f you want her on po rx at home. that is a choice you can make. suggest po augmentin 875 bid for 5d more if you choose that approach, but I am ok with nothing. will see again prn Time Spent With Patient Time: Total time spent is greater than 50% in coordination of care (as documented) at patient's floor/unit and/or counseling patient:
--- NOTE | 2025-01-27 22:56 | EKG_ITS ---
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
--- NOTE | 2025-01-27 22:56 | XR_ITS ---
Examination: AP chest single view Technique one AP portable upright chest single view Exam date and time: January 27, 2025 11:04 PM Comparison January 12, 2025 Indications: Sepsis alert today Findings: Early pneumonia left base obscuring detail left hemidiaphragm Right lung clear Normal heart size Impression: Early pneumonia left base
--- NOTE | 2025-01-27 23:04 | PD.RESEVENT ---
Documentation for date of: 01/27/25 Event Note Event Note: At 11 PM, sepsis alert was initiated for patient as patient had tachycardia heart rate in the 130s, and increasing white blood cell count. Patient was not experiencing any pain, other vitals including temperature were stable. Surgical site of abdomen was examined which showed some active drainage. Sepsis workup was initiated including blood cultures, lactate, and CMP. antibiotic coverage was broadened to Zosyn and vancomycin, and pt was given 1.[address] A/P w/contrast ordered as well. Patient seen and care discussed with my senior resident, Dr. Gardner, and my attending physician, Dr. Ruthy Hendricks, PGY-1
--- NOTE | 2025-01-27 23:05 | XR_ITS ---
Examination: CT abdomen with intravenous contrast CT pelvis with intravenous contrast 2-D coronal reconstructions 2-D sagittal reconstructions Date and time of exam: January 28, 2025 0031 hrs. Indications: Abdominal pain and distention this week, clinical diagnosis gastrointestinal perforation CTDI: vol (mGy) 5.62 DLP: (mGycm) 296 Technique: Multiple axial sections of the abdomen and pelvis have been obtained. 64 slice high-resolution scanner used. 3 mm axial sections have been obtained, post intravenous injection 60 cc [id number] 2-D sagittal, coronal reconstructions obtained. Low dose protocols were performed. One or more of the following dose reduction techniques were used; automated exposure control, adjustment of the mA and/or KV according to patient size, use of iterative reconstruction technique. Findings: Granuloma in the lingular segment No focal liver or splenic lesion gallstones in the neck of the gallbladder Gallbladder wall appears mildly thickened No pancreatic mass 3 mm calculus in the common bile duct No hydronephrosis Trace ascites Right ileostomy Fluid distended loops in the pelvis with free fluid Atrophic uterus No bladder mass Mild enhancement in the anterior abdominal wall Impression: Fluid distended small bowel loops with wall thickening, differential would include ischemic change, enteritis, early small bowel obstruction, clinical correlation advised Suspicious for peritonitis Cholelithiasis, recommend gallbladder sonography to confirm cholecystitis 3 mm calculus in the distal common bile duct, consider MRCP follow-up
[2025-01-27] MEDS: SODIUM CHLORIDE 0.9% 1000 ML 1,000 ML 999 ML IV (23:07)
[2025-01-27] MEDS: PIPER/TAZO INJ 3.375 GM in SODIUM CHLORIDE 0.9% (Popper) 50 ML IV (23:16)
[2025-01-27 23:22] LABS: Lactate (Lactic Acid) 1.1 mMol/L (0.4-2.0)
[2025-01-27 23:50] LABS: Basophils # (Auto) 0.1 Thou/mm3 (0.0-0.2); Basophils % (Auto) 1 % (0-2.5); Eosinophils # (Auto) 0.4 Thou/mm3 (0.0-0.5); Eosinophils % (Auto) 2 % (0-10); Hematocrit 29.9 % (36.0-46.0); Hemoglobin 9.9 g/dL (12.0-16.0); Immature Granulocytes % (Auto) 6 % (0-0); Immature Granulocytes Auto 0.91 Thou/mm3 (0.00-0.00); Lymphocytes % (Auto) 13 % (10-50); Mean Corpuscular HGB Conc 33.1 g/dl (31.0-37.0); Mean Corpuscular Hemoglobin 29.9 pg (25.0-35.0); Mean Corpuscular Volume 90 fL (80-100); Monocytes # (Auto) 0.7 Thou/mm3 (0.0-0.8); Monocytes % (Auto) 5 % (0-12); Neutrophils # (Auto) 11.2 Thou/mm3 (1.8-7.7); Neutrophils % (Auto) 74 % (37-80); Nucleated Red Blood Cell # 0.02 Thou/mm3 (0.00-0.00); Nucleated Red Blood Cell % 0 /100 WBC (0); Platelet Count 810 Thou/mm3 (140-440); RDW Standard Deviation 53.9 fL (36.4-46.3); Red Blood Count 3.31 Miln/mm3 (4.00-5.20); White Blood Count 15.3 Thou/mm3 (3.6-11.0)
[2025-01-27 23:51] LABS: INR 1.3 (0.9-1.3); Partial Thromboplastin Time 31.4 Seconds (22.0-36.0)
[2025-01-28] VITALS (9 sets, daily range): BP systolic 96–114; BP diastolic 62–76; PULSE 99–123; RESP 16–23; TEMP 36.1–36.8; O2SAT 96–98; BMI 20.2
[2025-01-28 00:06] LABS: Alanine Aminotransferase 26 U/L (10-49); Albumin, Serum 3.5 gm/dL (3.4-4.8); Albumin/Globulin Ratio 1.4 (1.2-2.2); Alkaline Phosphatase 222 U/L (46-116); Anion Gap 7 (7-16); Aspartate Amino Transferase 19 U/L (0-34); BUN/Creatinine Ratio 40 Ratio (12-20); Bilirubin,Total 0.4 mg/dL (0.3-1.2); Blood Urea Nitrogen 8 mg/dL (9-23); Calcium 8.9 mg/dL (8.3-10.6); Calcium (Corrected) 9.3 mg/dL (8.5-10.1); Carbon Dioxide 33.1 mMol/L (20.0-31.0); Chloride 92 mMol/L (98-107); Creatinine (Component) 0.2 mg/dL (0.6-1.3); Estimated Creatinine Clearance 222.9 mL/min (>60); Globulin 2.5 gm/dL (2.3-3.5); Glucose 103 mg/dL (74-106); Osmolality,Calculated 262 (275-295); Potassium 3.8 mMol/L (3.4-5.1); Sodium 132 mMol/L (136-145); eGFR > 60 See Note
[2025-01-28] MEDS: SODIUM CHLORIDE 0.9% 500 ML 500 ML 999 ML IV (00:10)
[2025-01-28] MEDS: VANCOMYCIN/NS 1 GM IVPB 200 ML IV ×3 (00:14→13:51)
--- NOTE | 2025-01-28 00:14 | PC.NURSE ---
RUSS, IN CT, STATES HE WILL CALL ME BACK WHEN READY FOR PT
[2025-01-28 00:53] LABS: Procalcitonin 0.17 ng/ml (0.0-0.49)
--- NOTE | 2025-01-28 01:58 | PRELIM_ITS ---
CT scan of the abdomen and pelvis with intravenous contrast (axial sections with sagittal and coronal reformats) January 28, 2025 0028 hours Clinical History: Infection Comparison: Compared with the prior study dated January 25 2025 Findings: There is bibasilar streaky atelectasis. There is a partially calcified nodule in the lingula. The pancreas, spleen, kidneys and adrenals are unremarkable.There are calculi within the neck of the gallbladder/cystic duct with slava cholecystic fluid. There is a small calculus within the distal common bile duct. There is dilatation of the CBD and intrahepatic biliary ducts. No evidence of bowel obstruction. There is total colectomy. There is wall thickening of the small bowel loops in the lower abdomen and pelvis , increased since the prior examination. There is ileostomy in the right mid abdomen. There is no mesenteric or retroperitoneal adenopathy. The urinary bladder is incompletely distended at the time of examination.There are uterine fibroids. There are loculated collections in the anterior abdomen ,similar to prior study. There is mild to moderate ascites with peritoneal enhancement.There is small pneumoperitoneum , which may be related to recent surgery . There are recent postoperative changes in the anterior abdominal wall. Degenerative changes are identified in the spine. Impression: Wall thickening of the small bowel loops in the lower abdomen and pelvis , increased since the prior examination. Peritoneal enhancement along with loculated collections in the anterior abdomen , Findings suggestive of peritonitis , unchanged since the prior examination. Calculi within the neck of the gallbladder/cystic duct with findings of acute cholecystitis , similar to prior study. Small calculus within the distal common bile duct with dilatation of the CBD and intrahepatic biliary ducts , similar to prior study. Other findings as described above. Report Electronically Signed By: Horacio Torres 01/28/2025 1:57:33 AM [EST]
--- NOTE | 2025-01-28 02:15 | PC.NURSE ---
MADE DR. ROCHA AWARE OF PRELIMINARY REPORT OF CT ABD. WOUND REFERRAL ORDER GIVEN.
[2025-01-28 02:31] LABS: Collection Type, Urine Clean Catch; Squamous Epithelial Cell,Urine 0 /hpf (0-5)
[2025-01-28 03:03] LABS: Bacteria,Urine 2+; Bilirubin,Urine Negative (Negative); Blood,Urine Negative (Negative); Budding Yeast,Urine Present; Calcium Oxalate Crystals,Urine Rare; Clarity,Urine Turbid (Clear/Hazy); Color,Urine Lt-Yellow (Lt Yel-Yel); Glucose, Urine Negative (Negative); Ketones,Urine 1+ (Negative); Leukocyte Esterase,Urine Negative (Negative); Nitrite,Urine Negative (Negative); PH,Urine 7.5 (5.0-7.0); Protein,Urine Negative (Neg - Trace); RBC,Urine 42 /hpf (0-3); Specific Gravity,Urine 1.039 (1.001-1.035); Urobilinogen,Urine Negative mg/dL (0.0-1.0); WBC,Urine 7 /hpf (0-5)
[2025-01-28 05:54] LABS: Alanine Aminotransferase 23 U/L (10-49); Albumin/Globulin Ratio 1.3 (1.2-2.2); Alkaline Phosphatase 196 U/L (46-116); Anion Gap 7 (7-16); Aspartate Amino Transferase 21 U/L (0-34); BUN/Creatinine Ratio 30 Ratio (12-20); Bilirubin,Total 0.4 mg/dL (0.3-1.2); Blood Urea Nitrogen 6 mg/dL (9-23); Calcium 8.1 mg/dL (8.3-10.6); Calcium (Corrected) 8.9 mg/dL (8.5-10.1); Carbon Dioxide 28.4 mMol/L (20.0-31.0); Chloride 100 mMol/L (98-107); Creatinine (Component) 0.2 mg/dL (0.6-1.3); Estimated Creatinine Clearance 222.9 mL/min (>60); Globulin 2.3 gm/dL (2.3-3.5); Glucose 89 mg/dL (74-106); Osmolality,Calculated 266 (275-295); Potassium 3.5 mMol/L (3.4-5.1); Sodium 135 mMol/L (136-145); Total Protein 5.3 gm/dL (5.7-8.2); eGFR > 60 See Note
[2025-01-28] MEDS: PIPER/TAZO INJ 3.375 GM in SODIUM CHLORIDE 0.9% (Popper) 50 ML IV ×3 (05:54→21:44)
[2025-01-28 05:58] LABS: Basophils # (Auto) 0.1 Thou/mm3 (0.0-0.2); Basophils % (Auto) 1 % (0-2.5); Eosinophils # (Auto) 0.2 Thou/mm3 (0.0-0.5); Eosinophils % (Auto) 1 % (0-10); Hematocrit 30.1 % (36.0-46.0); Hemoglobin 9.6 g/dL (12.0-16.0); Immature Granulocytes % (Auto) 6 % (0-0); Immature Granulocytes Auto 0.78 Thou/mm3 (0.00-0.00); Lymphocytes # (Auto) 1.4 Thou/mm3 (1.0-4.8); Lymphocytes % (Auto) 11 % (10-50); Mean Corpuscular HGB Conc 31.9 g/dl (31.0-37.0); Mean Corpuscular Hemoglobin 29.4 pg (25.0-35.0); Mean Corpuscular Volume 92 fL (80-100); Monocytes # (Auto) 0.6 Thou/mm3 (0.0-0.8); Monocytes % (Auto) 5 % (0-12); Neutrophils # (Auto) 9.6 Thou/mm3 (1.8-7.7); Neutrophils % (Auto) 76 % (37-80); Nucleated Red Blood Cell % 0 /100 WBC (0); Platelet Count 719 Thou/mm3 (140-440); RDW Standard Deviation 53.6 fL (36.4-46.3); Red Blood Count 3.26 Miln/mm3 (4.00-5.20); White Blood Count 12.5 Thou/mm3 (3.6-11.0)
[2025-01-28] MEDS: HYDROcodone/APAP 5/325 TABLET 1 TAB PO ×3 (06:03→21:44)
[2025-01-28] MEDS: SIMETHICONE 80 MG CHEW PO ×3 (06:03→17:05)
[2025-01-28] MEDS: ENOXAPARIN SOD INJ 40 MG/0.4 ML SYRINGE SC (09:40)
[2025-01-28] MEDS: ALBUMIN HUMAN 25% IVPB 12.5 GM/50 ML BTL IV (09:40)
[2025-01-28] MEDS: ZINC SULFATE 220 MG CAPSULE PO (09:41)
[2025-01-28] MEDS: POTASSIUM CHLORIDE 20 mEq TABCR 40 MEQ PO (09:41)
[2025-01-28] MEDS: ASCORBIC ACID 250 MG TABLET 500 MG PO ×2 (09:41→21:43)
--- NOTE | 2025-01-28 10:35 | PD.RESPRO ---
Documentation for date of: 01/28/25 Subjective Subjective Interval history: Patient seen today at the bedside. Overnight patient had rapid response in which sepsis alert was called patient was given 1.5 L normal saline as well as bicarbonate, antibiotic coverage was broadened to vancomycin and Zosyn. Vitals at this time send the second for tachycardia likely secondary to pain. IV albumin x 1 ordered. Pain regimen adjusted. Patient currently tolerating p.o. diet. Pending [facility] authorization for rehab. Exam Vital Signs Temp Pulse Resp BP Pulse Ox O2 Del Method O2 Flow Rate 97.9 F 117 H 22 H 102/70 98 Room Air 2 01/28/25 08:00 01/28/25 08:00 01/28/25 08:00 01/28/25 08:00 01/28/25 08:00 01/28/25 08:00 01/27/25 12:00 FiO2 30 01/27/25 12:00 Narrative Exam Physical Exam GENERAL: NAD, AAOx3, appears in pain HEENT: Moist mucosa. Eyes open, symmetrical, & clear CARDIO: Heart RRR, no obvious murmurs PULM: No noted coughing/dyspnea CTA B/L, no R/W/R GI: Abdomen soft, nondistended, tenderness on palpation. Ileostomy in place, incision site clean and dry SKIN/MSK/EXT: No wounds/rashes/edema/amputations, no pain on palpation. Pedal pulses present B/L NEURO: AAOx3, no focal neuro deficits, able to move all 4 extremities Objective Labs 01/28/25 04:58 01/28/25 04:58 Labs: Laboratory Results - last 24 hr 01/27/25 01/27/25 01/28/25 23:05 23:07 02:30 WBC 15.3 H RBC 3.31 L Hgb 9.9 L Hct 29.9 L MCV 90 MCH 29.9 MCHC 33.1 RDW Std Deviation 53.9 H Plt Count 810 H D Neut % (Auto) 74 Lymph % (Auto) 13 [place] % (Auto) 5 Eos % (Auto) 2 Baso % (Auto) 1 Neut # (Auto) 11.2 H Lymph # (Auto) 2.0 [place] # (Auto) 0.7 Eos # (Auto) 0.4 Baso # (Auto) 0.1 Immature Gran # (Auto) 0.91 H Absolute Nucleated RBC 0.02 H Immature Gran % 6 H Nucleated RBC % 0 PT 14.0 H INR 1.3 APTT 31.4 Sodium 132 L Potassium 3.8 D Chloride 92 L Carbon Dioxide 33.1 H Anion Gap 7 BUN 8 L Creatinine 0.2 L Estim Creat Clear Calc 222.9 eGFR > 60 BUN/Creatinine Ratio 40 H Glucose 103 Calculated Osmolality 262 L Lactic Acid 1.1 Calcium 8.9 Corrected Calcium 9.3 Total Bilirubin 0.4 AST 19 ALT 26 Alkaline Phosphatase 222 H Total Protein 6.0 Albumin 3.5 Globulin 2.5 Albumin/Globulin Ratio 1.4 Procalcitonin 0.17 Ur Collection Type Clean Catch Urine Color Lt-Yellow Urine Clarity Turbid A Urine pH 7.5 H Ur Specific [place] 1.039 H Urine Protein Negative Urine Glucose (UA) Negative Urine Ketones 1+ A Urine Blood Negative Urine Nitrite Negative Urine Bilirubin Negative Urine Urobilinogen (Auto) Negative Ur Leukocyte Esterase Negative Urine RBC 42 H Urine WBC 7 H Ur Squamous Epith Cells 0 Calcium Oxalate Crystal Rare Urine Bacteria 2+ A Urine Yeast (Budding) Present A 01/28/25 04:58 WBC 12.5 H RBC 3.26 L Hgb 9.6 L Hct 30.1 L MCV 92 MCH 29.4 MCHC 31.9 RDW Std Deviation 53.6 H Plt Count 719 H D Neut % (Auto) 76 Lymph % (Auto) 11 [place] % (Auto) 5 Eos % (Auto) 1 Baso % (Auto) 1 Neut # (Auto) 9.6 H Lymph # (Auto) 1.4 [place] # (Auto) 0.6 Eos # (Auto) 0.2 Baso # (Auto) 0.1 Immature Gran # (Auto) 0.78 H Absolute Nucleated RBC 0.00 Immature Gran % 6 H Nucleated RBC % 0 PT INR APTT Sodium 135 L Potassium 3.5 Chloride 100 Carbon Dioxide 28.4 Anion Gap 7 BUN 6 L Creatinine 0.2 L Estim Creat Clear Calc 222.9 eGFR > 60 BUN/Creatinine Ratio 30 H Glucose 89 Calculated Osmolality 266 L Lactic Acid Calcium 8.1 L Corrected Calcium 8.9 Total Bilirubin 0.4 AST 21 ALT 23 Alkaline Phosphatase 196 H D Total Protein 5.3 L Albumin 3.0 L D Globulin 2.3 Albumin/Globulin Ratio 1.3 Procalcitonin Ur Collection Type Urine Color Urine Clarity Urine pH Ur Specific [place] Urine Protein Urine Glucose (UA) Urine Ketones Urine Blood Urine Nitrite Urine Bilirubin Urine Urobilinogen (Auto) Ur Leukocyte Esterase Urine RBC Urine WBC Ur Squamous Epith Cells Calcium Oxalate Crystal Urine Bacteria Urine Yeast (Budding) ABG Interpretation ABG results: 01/12/25 01/12/25 01/12/25 02:43 04:40 07:51 ABG pH 7.51 H 7.39 D 7.40 ABG pCO2 29 L 41 D 40 ABG pO2 235 H 145 H D 152 H ABG HCO3 23 25 25 ABG O2 Saturation 100 H 99 H 99 H ABG Base Excess 0 0 0 VBG pH VBG pCO2 VBG pO2 VBG Base Excess 01/13/25 01/15/25 04:17 11:51 ABG pH 7.32 L ABG pCO2 43 ABG pO2 137 H ABG HCO3 22 ABG O2 Saturation 99 H ABG Base Excess -4 L VBG pH 7.65 VBG pCO2 37 VBG pO2 75 H VBG Base Excess 18 H Quality Measures Quality Measures VTE prophylaxis Assessment & Plan Assessment Current Active Medications: Generic Name Dose Route Start Last Admin Trade Name Freq PRN Reason Stop Dose Admin Acetaminophen 650 mg 01/27/25 11:50 Acetaminophen 325 Mg Tablet PO 02/26/25 11:49 Q6HR PRN Fever >100.4 or pain 1-3 Hydrocodone Bitart/Acetaminophen 1 tab 01/26/25 11:00 01/28/25 09:52 Hydrocodone/Apap 5/325 Tablet PO 01/31/25 10:59 1 tab Q3HR PRN Administration Pain 4-6 Albuterol/Ipratropium 3 ml 01/16/25 11:56 01/16/25 12:04 Albuterol/Ipratropium (Duoneb) Rt Bambi 3 Ml Nebu INH 02/15/25 14:59 3 ml Q4HRRT PRN Administration SHORTNESS OF BREATH OR WHEEZE Ascorbic Acid 500 mg 01/18/25 10:30 01/28/25 09:41 Ascorbic Acid 250 Mg Tablet PO 02/17/25 10:29 500 mg BID CAMERON Administration Dextrose 50 ml 01/13/25 06:35 Dextrose 50%-Water Inj 50 Ml Syringe IV 02/12/25 06:34 Q15MIN PRN BG <50 OR BG <70 & pt unresponsive Enoxaparin Sodium 40 mg 01/16/25 09:00 01/28/25 09:40 Enoxaparin Sod Inj 40 Mg/0.4 Ml Syringe SC 01/30/25 08:59 40 mg QDAY CAMERON Administration Glucagon 1 mg 01/13/25 06:35 Glucagon Inj 1 Mg Vial IM Q15MIN PRN BG <70, and no IV access Hydromorphone HCl 0.5 mg 01/26/25 10:38 01/27/25 23:27 Hydromorphone Inj 2 Mg/Ml Vial IVP 01/30/25 09:43 0.5 mg Q3HR PRN Administration PAIN SCALE 7-10 (Severe Piperacillin Sod/Tazobactam 50 mls @ 100 mls/hr 01/27/25 23:00 01/28/25 05:54 Sod 3.375 gm/ Sodium Chloride IV 02/03/25 22:59 100 mls/hr Q8HR CAMERON Administration Vancomycin/Sodium Chloride 200 mls @ 120 mls/hr 01/28/25 09:00 01/28/25 09:40 Vancomycin/Ns 1 Gm Ivpb IV 02/04/25 08:59 120 mls/hr Q8HR CAMERON Administration Protocol Insulin Human Lispro 0 unit 01/21/25 11:30 01/28/25 07:45 Insulin Lispro (Admelog) 1 Unit/0.01 Ml Unit SC 02/20/25 11:29 Not Given AC CAMERON Protocol Pharmacy Consult 1 each 01/28/25 09:00 Vancomycin Pharmacy To Dose 1 Each Each IV 02/27/25 08:59 QDAY PRN CONSULT Phenol/Menthol 0 ml 01/28/25 09:34 Phenol/Na Phenolate (Chloraseptic) [place] 180 Ml Btl PO 02/27/25 09:33 Q6HR PRN SORE THROAT Simethicone 80 mg 01/25/25 19:15 01/28/25 06:03 Simethicone 80 Mg Chew PO 02/24/25 19:14 80 mg Q6HR CAMERON Administration Zinc Sulfate 220 mg 01/18/25 10:30 01/28/25 09:41 Zinc Sulfate 220 Mg Capsule PO 02/17/25 10:29 220 mg QDAY CAMERON Administration Plan 59-year-old female with past medical history of inflammatory bowel disease/ulcerative colitis on chronic steroids that was recently discharged on 12/21/2024 for IBS flareup and admitted on 01/11 for pneumoperitoneum requiring emergent ex-lap. Found to have multiple areas of small and large bowel perforation with feculent peritonitis as well as coloenteric fistulas. Underwent subtotal colectomy on 01/11 and subsequently admitted to the ICU for further management. patient was downgraded to medical floors on 01/15 for furtehr management. 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 Crohn's - CT on admission: pneumoperitoneum and went to OR emergently. Found to have multiple bowel perforations in small and large intestine causing feculent peritonitis. - 01/11: First operation with bowel resection and second - 01/12: Blood cultures : Negative - 01/14: small bowel anastomosis with end ileostomy, cholecystectomy, and abdominal washout with closure. She was extubated in PACU and then returned to ICU - 01/16: Continue with Ice chips (ok with Surgeon), pain control, will wean down off dilaudid pump. Will need to wean off TPN at some point - 01/18: Started on clear liquid diet, tolerating well. Will work on weaning off HAND TRUCKER and TPN. - 01/19: Diet advanced, no nausea/vomiting, minimal pain attributed to dairy intake. Will wean off HAND TRUCKER and TPN - 01/20: Diet has been advanced to dysphagia [address] Crooks. Patient is tolerating current diet, no abdominal pain, nausea or vomiting. - 01/21: Tolerating dysphagia 2 diet well and drinking Ensure in between meals. Ileostomy is functioning well. Abdo pain occurs 30-40 mins after meals but improves with IV pain medicines. - 01/22: She still reports some pain, before and after meals but is tolerating feeding without nausea or vomiting. Pain management on [place] - 01/23: Reports that she is doing significantly better, had a decent sized breakfast this morning, tolerated well-no abdominal pain right after, no nausea or vomiting. On examination, abdomen is slightly tender. Ileostomy functioning well. Labs reviewed, WBC uptrended to 25. Per ID recs, will continue IV Unasyn. Patient working with physical therapy, progress noted. Will slowly wean off IV pain medications -01/24: Patient is doing well on her diet, no nausea or vomiting, pain is improving. She still little tachycardic, possibly pain related. Labs reviewed, WBC downtrending at 19 today and hemoglobin dropped to 8.7 but patient has no bleeding noted. Evaluated by ID today, will complete IV Unasyn. - 01/25: pain is worse. IV dilaudid increased back to 1mg. CT abdomen/pelvis w/ contrast ordered to evaluate abdominal tenderness and worsening clinical status. WBC downtrending 25 -> 19 -> 15, patient remains afebrile. - 01/26: Had a repeat CT abdomen done which showed a 4 mm stone in the common hepatic duct and 3 mm in the common bile duct. Evaluated by GI Dr. Gamboa who does not need recommended additional interventions at this time as LFTs are normal. At bedside today, patient has no complaints except minimal pain, still tolerating diet. She did not ambulate with physical therapy yesterday, recommended for PT today - 01/27: Patient had rapid response and sepsis alert was called, 1.5 L NS was given, antibiotic coverage broadened to vancomycin and Zosyn, pain regimen adjusted -On vancomycin and Zosyn -Dr Crooks following, appreciate recommendations -Pain management with [place] (1-6) -GI to evaluate when to resume mesalamine -Physical therapy to continue working with the patient. -Patient to be discharged to SNF for continued rehab, pending authorization #Protein Calorie Malnutrition-improving #Hypokalemia - recurrent #Hypomagnesemia The patient has had persistently low albumin level since prior to surgery. Likely due to decreased intake as well as losses Dietary recommendations appreciated 01/23-total protein 5.3, albumin 3.2 01/26/2025: Potassium- 3.1, Mg- 1.7 -IV albumin 25 g x1 given -Continue oral diet #Dyspnea- resolved #Cough- resolved -Incentive spirometry at bedside -Chest physiotherapy qD #Reactive Leukocytosis- resolved WBC : 29 -> 24 -> 22 -> 23.9 Likely secondary to steroid use WBC today: 8.9 Patient was on steroids at some point however discontinued -On IV antibiotics #Normocytic anemia - resolved Presented with hemoglobin of 7.8 that improved to 9.2 after 4 units PRBC, and is also status-post 1 unit FFP -01/15 : Hb 12.2 , wnl : Stable, continue to monitor Case discussed with my attending Dr. Poly Rodriguez MD PGY-1 Disposition: Telemetry DVT prophylaxis: Lovenox GI prophylaxis: None Diet: Regular CODE STATUS: Full code Attending Provider Attestation/Addendum Rapid response last night. Patient now on vancomycin and Zosyn. She is being tapered off hydromorphone. She has less abdominal pain today. Repeat CT scan still showed fluid distended small bowel loops. Discussed with housestaff. Plan to speak with the general surgery.
[2025-01-28] MEDS: ACETAMINOPHEN 325 MG TABLET 650 MG PO (11:50)
--- NOTE | 2025-01-28 14:43 | PD.IMPROG ---
Documentation for date of: 01/28/25 Subjective Subjective Interval history: Patient evaluated Having a hard time with the physical therapy White blood cell count went down today from 15.3-12.5 Hemoglobin hematocrit 9.6 and 30.1 Exam Vital Signs Temp Pulse Resp BP Pulse Ox O2 Del Method O2 Flow Rate 97.0 F 103 H 16 111/68 97 Room Air 2 01/28/25 12:00 01/28/25 12:00 01/28/25 12:00 01/28/25 12:00 01/28/25 12:00 01/28/25 12:00 01/27/25 12:00 FiO2 30 01/27/25 12:00 Objective Labs 01/28/25 04:58 01/28/25 04:58 Labs: Laboratory Results - last 24 hr 01/27/25 01/27/25 01/28/25 23:05 23:07 02:30 WBC 15.3 H RBC 3.31 L Hgb 9.9 L Hct 29.9 L MCV 90 MCH 29.9 MCHC 33.1 RDW Std Deviation 53.9 H Plt Count 810 H D Neut % (Auto) 74 Lymph % (Auto) 13 [place] % (Auto) 5 Eos % (Auto) 2 Baso % (Auto) 1 Neut # (Auto) 11.2 H Lymph # (Auto) 2.0 [place] # (Auto) 0.7 Eos # (Auto) 0.4 Baso # (Auto) 0.1 Immature Gran # (Auto) 0.91 H Absolute Nucleated RBC 0.02 H Immature Gran % 6 H Nucleated RBC % 0 PT 14.0 H INR 1.3 APTT 31.4 Sodium 132 L Potassium 3.8 D Chloride 92 L Carbon Dioxide 33.1 H Anion Gap 7 BUN 8 L Creatinine 0.2 L Estim Creat Clear Calc 222.9 eGFR > 60 BUN/Creatinine Ratio 40 H Glucose 103 Calculated Osmolality 262 L Lactic Acid 1.1 Calcium 8.9 Corrected Calcium 9.3 Total Bilirubin 0.4 AST 19 ALT 26 Alkaline Phosphatase 222 H Total Protein 6.0 Albumin 3.5 Globulin 2.5 Albumin/Globulin Ratio 1.4 Procalcitonin 0.17 Ur Collection Type Clean Catch Urine Color Lt-Yellow Urine Clarity Turbid A Urine pH 7.5 H Ur Specific [place] 1.039 H Urine Protein Negative Urine Glucose (UA) Negative Urine Ketones 1+ A Urine Blood Negative Urine Nitrite Negative Urine Bilirubin Negative Urine Urobilinogen (Auto) Negative Ur Leukocyte Esterase Negative Urine RBC 42 H Urine WBC 7 H Ur Squamous Epith Cells 0 Calcium Oxalate Crystal Rare Urine Bacteria 2+ A Urine Yeast (Budding) Present A 01/28/25 04:58 WBC 12.5 H RBC 3.26 L Hgb 9.6 L Hct 30.1 L MCV 92 MCH 29.4 MCHC 31.9 RDW Std Deviation 53.6 H Plt Count 719 H D Neut % (Auto) 76 Lymph % (Auto) 11 [place] % (Auto) 5 Eos % (Auto) 1 Baso % (Auto) 1 Neut # (Auto) 9.6 H Lymph # (Auto) 1.4 [place] # (Auto) 0.6 Eos # (Auto) 0.2 Baso # (Auto) 0.1 Immature Gran # (Auto) 0.78 H Absolute Nucleated RBC 0.00 Immature Gran % 6 H Nucleated RBC % 0 PT INR APTT Sodium 135 L Potassium 3.5 Chloride 100 Carbon Dioxide 28.4 Anion Gap 7 BUN 6 L Creatinine 0.2 L Estim Creat Clear Calc 222.9 eGFR > 60 BUN/Creatinine Ratio 30 H Glucose 89 Calculated Osmolality 266 L Lactic Acid Calcium 8.1 L Corrected Calcium 8.9 Total Bilirubin 0.4 AST 21 ALT 23 Alkaline Phosphatase 196 H D Total Protein 5.3 L Albumin 3.0 L D Globulin 2.3 Albumin/Globulin Ratio 1.3 Procalcitonin Ur Collection Type Urine Color Urine Clarity Urine pH Ur Specific [place] Urine Protein Urine Glucose (UA) Urine Ketones Urine Blood Urine Nitrite Urine Bilirubin Urine Urobilinogen (Auto) Ur Leukocyte Esterase Urine RBC Urine WBC Ur Squamous Epith Cells Calcium Oxalate Crystal Urine Bacteria Urine Yeast (Budding) Impressions Impression: Functioning ileostomy Status post exploratory laparotomy with subtotal colectomy ABG Interpretation ABG results: 01/12/25 01/12/25 01/12/25 02:43 04:40 07:51 ABG pH 7.51 H 7.39 D 7.40 ABG pCO2 29 L 41 D 40 ABG pO2 235 H 145 H D 152 H ABG HCO3 23 25 25 ABG O2 Saturation 100 H 99 H 99 H ABG Base Excess 0 0 0 VBG pH VBG pCO2 VBG pO2 VBG Base Excess 01/13/25 01/15/25 04:17 11:51 ABG pH 7.32 L ABG pCO2 43 ABG pO2 137 H ABG HCO3 22 ABG O2 Saturation 99 H ABG Base Excess -4 L VBG pH 7.65 VBG pCO2 37 VBG pO2 75 H VBG Base Excess 18 H Assessment & Plan A&P Narrative cx neg. on zosyn for 3-4d post op or so. doing ok on unasyn for past several days. has been off steroid since 01/16 (last dose that day apparently) finishes iv unasyn today.ok with me i f you want her on po rx at home. that is a choice you can make. suggest po augmentin 875 bid for 5d more if you choose that approach, but I am ok with nothing. will see again prn Time Spent With Patient Time: Total time spent is greater than 50% in coordination of care (as documented) at patient's floor/unit and/or counseling patient:
[2025-01-28] MEDS: NYSTATIN SUSP 5 ML UDC PO ×2 (17:05→21:44)
--- NOTE | 2025-01-28 18:24 | XR_ITS ---
Examination: Small bowel series with KUBs AP supine abdomen 4 views Exam date and time: January 28, 2025 at 1941 hrs. 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
[2025-01-28] MEDS: HYDROmorphone INJ 2 MG/ML VIAL 0.25 MG IVP (19:20)
[2025-01-28 21:51] LABS: Vancomycin,Trough 19.5 mcg/mL (5.0-10.0)
[2025-01-29] VITALS (10 sets, daily range): BP systolic 89–119; BP diastolic 63–84; PULSE 95–120; RESP 17–24; TEMP 36.1–36.8; O2SAT 95–98; BMI 20.2
--- NOTE | 2025-01-29 | XR_ITS ---
Examination: Abdomen AP single view Technique: AP portable supine abdomen, single view Exam date and time: January 29, 2025 0034 hrs. Indications: 4.5 hour delayed film post small bowel series today, abdominal pain and distention this week, small bowel obstruction pattern on CT abdomen pelvis study January 28, 2025 0028 hrs. Findings: Contrast present in distended small bowel loops Impression: Small bowel obstruction pattern, additional delayed films will be obtained
[2025-01-29] MEDS: SIMETHICONE 80 MG CHEW PO ×5 (00:07→23:44)
--- NOTE | 2025-01-29 03:00 | XR_ITS ---
Examination: Abdomen AP single view Technique: AP portable supine abdomen, single view Exam date and time: January 29, 2025 0304 hrs. Indications: 7 hour delayed film post small bowel series, abdominal pain and distention, small bowel obstruction pattern on CT abdomen pelvis January 28, 2025 at 12:28 AM Findings: Contrast remains in distended small bowel loops Impression: Small bowel obstruction pattern Multiple additional delayed films will be obtained
[2025-01-29] MEDS: HYDROcodone/APAP 5/325 TABLET 1 TAB PO ×6 (03:16→23:44)
[2025-01-29 04:41] LABS: Basophils # (Auto) 0.1 Thou/mm3 (0.0-0.2); Basophils % (Auto) 1 % (0-2.5); Eosinophils # (Auto) 0.4 Thou/mm3 (0.0-0.5); Eosinophils % (Auto) 3 % (0-10); Hematocrit 32.5 % (36.0-46.0); Hemoglobin 10.4 g/dL (12.0-16.0); Immature Granulocytes % (Auto) 7 % (0-0); Immature Granulocytes Auto 0.93 Thou/mm3 (0.00-0.00); Lymphocytes # (Auto) 1.9 Thou/mm3 (1.0-4.8); Lymphocytes % (Auto) 15 % (10-50); Mean Corpuscular Hemoglobin 30.1 pg (25.0-35.0); Mean Corpuscular Volume 94 fL (80-100); Monocytes # (Auto) 0.6 Thou/mm3 (0.0-0.8); Monocytes % (Auto) 5 % (0-12); Neutrophils # (Auto) 8.7 Thou/mm3 (1.8-7.7); Neutrophils % (Auto) 68 % (37-80); Nucleated Red Blood Cell % 0 /100 WBC (0); Platelet Count 729 Thou/mm3 (140-440); RDW Standard Deviation 56.2 fL (36.4-46.3); Red Blood Count 3.45 Miln/mm3 (4.00-5.20); White Blood Count 12.7 Thou/mm3 (3.6-11.0)
[2025-01-29 05:05] LABS: Alanine Aminotransferase 30 U/L (10-49); Albumin, Serum 3.5 gm/dL (3.4-4.8); Albumin/Globulin Ratio 1.5 (1.2-2.2); Alkaline Phosphatase 197 U/L (46-116); Anion Gap 7 (7-16); Aspartate Amino Transferase 27 U/L (0-34); BUN/Creatinine Ratio 35 Ratio (12-20); Bilirubin,Total 0.4 mg/dL (0.3-1.2); Blood Urea Nitrogen 7 mg/dL (9-23); Calcium (Corrected) 9.4 mg/dL (8.5-10.1); Carbon Dioxide 32.6 mMol/L (20.0-31.0); Chloride 100 mMol/L (98-107); Creatinine (Component) 0.2 mg/dL (0.6-1.3); Estimated Creatinine Clearance 222.9 mL/min (>60); Globulin 2.4 gm/dL (2.3-3.5); Glucose 87 mg/dL (74-106); Osmolality,Calculated 276 (275-295); Potassium 3.6 mMol/L (3.4-5.1); Sodium 140 mMol/L (136-145); Total Protein 5.9 gm/dL (5.7-8.2); eGFR > 60 See Note
[2025-01-29] MEDS: PIPER/TAZO INJ 3.375 GM in SODIUM CHLORIDE 0.9% (Popper) 50 ML IV ×3 (05:19→21:17)
[2025-01-29] MEDS: NYSTATIN SUSP 5 ML UDC PO ×4 (05:19→20:28)
--- NOTE | 2025-01-29 07:00 | XR_ITS ---
Examination: Abdomen AP single view Technique: AP portable supine abdomen, single view Exam date and time: January 29, 2025 at 0735 hours INDICATIONS: Nine-hour delayed film post small bowel series yesterday, abdominal pain and distention FINDINGS: Contrast in the stomach Air distended small bowel loops IMPRESSION: Air distended small bowel loops
[2025-01-29] MEDS: VANCOMYCIN/NS 750 MG IVPB 750 MG/150 ML BAG 120 MG IV ×3 (08:32→22:12)
[2025-01-29] MEDS: ENOXAPARIN SOD INJ 40 MG/0.4 ML SYRINGE SC (08:33)
--- NOTE | 2025-01-29 08:50 | XR_ITS ---
Examination: RED, hepatobiliary radioisotope scan Date and time of exam: January 29, 2025 1342 hours INDICATIONS: Status post cholecystectomy chief complaint worsening abdominal pain Technique: 5.9 mCi of 99M Hepatolite administered. Serial imaging then obtained from immediate through 60 minutes. Findings: Radioisotope activity within the liver is reasonably homogenous. Common bile duct small bowel activity noted Impression: Common bile duct activity as well as small bowel activity noted IMPRESSION: Negative for common bile duct obstruction
[2025-01-29] MEDS: MIDODRINE 5 MG TABLET 10 MG PO ×3 (09:21→21:06)
[2025-01-29] MEDS: RINGERS LACTATED 1000 ML 1,000 ML 999 ML IV (09:21)
[2025-01-29 10:47] LABS: Lactate (Lactic Acid) 1.7 mMol/L (0.4-2.0)
[2025-01-29 11:11] LABS: Anion Gap 9 (7-16); BUN/Creatinine Ratio 35 Ratio (12-20); Blood Urea Nitrogen 7 mg/dL (9-23); Calcium 8.6 mg/dL (8.3-10.6); Calcium (Corrected) 9.4 mg/dL (8.5-10.1); Carbon Dioxide 29.9 mMol/L (20.0-31.0); Chloride 100 mMol/L (98-107); Creatinine (Component) 0.2 mg/dL (0.6-1.3); Estimated Creatinine Clearance 222.9 mL/min (>60); Glucose 75 mg/dL (74-106); Osmolality,Calculated 274 (275-295); Phosphorous 2.3 mg/dL (2.4-5.1); Sodium 139 mMol/L (136-145); eGFR > 60 See Note
[2025-01-29] MEDS: HYDROmorphone INJ 2 MG/ML VIAL 0.5 MG IVP (11:25)
[2025-01-29] MEDS: MICAFUNGIN SODIUM INJ 100 MG in SODIUM CHLORIDE 0.9% 100 ML IV (13:20)
--- NOTE | 2025-01-29 14:51 | PD.SURPROG ---
Documentation for date of: 01/29/25 Subjective Subjective Narrative: Patient is seen and examined. She was noted to have increased drainage from the inferior aspect of the incision. Upper GI with Gastrografin contrast was obtained that did not show evidence of leak from the anastomosis site. Exam Vital Signs Temp Pulse Resp BP Pulse Ox O2 Del Method O2 Flow Rate 97.5 F 109 H 19 89/63 L 97 Room Air 2 01/29/25 08:00 01/29/25 09:21 01/29/25 08:00 01/29/25 09:21 01/29/25 08:00 01/29/25 08:00 01/27/25 12:00 FiO2 30 01/27/25 12:00 Constitutional Constitutional: no acute distress Routine Abdominal Exam Comments: Abdomen is soft and not distended. No evidence of peritonitis. There are minimal amount of purulent drainage emanating from the inferior aspect of the incision, remainder of the incision is clean, dry and intact without surrounding erythema. Ileostomy is functioning. Assessment & Plan Assessment Additional comments: Status post subtotal colectomy with en bloc small bowel resection, cholecystectomy with end ileostomy Plan Upper GI series with Gastrografin did not show evidence of leak from anastomosis site. HIDA scan was obtained to rule out bile leak, results are pending Procedures Procedures Exploratory laparotomy, small bowel anastomosis with end ileostomy Cholecystectomy Abdominal washout and closure
--- NOTE | 2025-01-29 15:07 | ESPR_ITS ---
<Statement entered by Marilu Saravia MD - 02/03/25 21:51> I reviewed above note and agree with findings and plans. I have also personally examined the patient with medicine team and went over assessment and plan with medical team including sales and marketing intern and resident physician. Documentation for date of: 01/29/25 Subjective Subjective Interval history: No overnight events. Patient seen and examined at bedside. Patient reports continued abdominal discomfort, nausea without vomiting. Denies chest pain, shortness of breath, fevers, chills. Patient blood pressure low, given 1 L bolus and started on midodrine. Spoke with Dr Crooks regarding leak, states no leak at anastomosis seen on small bowel follow-through imaging. Recommended HIDA scan, results pending. Infectious diseases consulted, will follow-up. Exam Vital Signs Temp Pulse Resp BP Pulse Ox O2 Del Method O2 Flow Rate 97.8 F 105 H 19 97/72 98 Room Air 2 01/29/25 12:00 01/29/25 12:00 01/29/25 12:00 01/29/25 12:00 01/29/25 12:00 01/29/25 12:00 01/27/25 12:00 FiO2 30 01/27/25 12:00 Narrative Exam PE: Gen: Well-developed and well-nourished. Appears ill. HEENT: NCAT, PERRLA, EOMI, MMM, anicteric conjunctivae. CVS: normal S1 and S2. RRR. No M/R/G. Resp: CTA B/L. No rhonchi, rales, crackles or wheezing. Abd: soft, non-distended. Ileostomy functioning well. Patient tender to mild palpation. Incision site bandage, with some drainage at the inferior aspect. MSK: Good ROM in BUE & BLE. No edema or rash. Neuro: CN II-XII grossly intact. Strength 5/5 in BUE & BLE. Alert and oriented x3. Objective Labs 01/29/25 04:14 01/29/25 10:17 Labs: Laboratory Results - last 24 hr 01/28/25 01/29/25 01/29/25 21:05 04:14 10:17 WBC 12.7 H RBC 3.45 L Hgb 10.4 L Hct 32.5 L MCV 94 MCH 30.1 MCHC 32.0 RDW Std Deviation 56.2 H Plt Count 729 H Neut % (Auto) 68 Lymph % (Auto) 15 [place] % (Auto) 5 Eos % (Auto) 3 Baso % (Auto) 1 Neut # (Auto) 8.7 H Lymph # (Auto) 1.9 [place] # (Auto) 0.6 Eos # (Auto) 0.4 Baso # (Auto) 0.1 Immature Gran # (Auto) 0.93 H Absolute Nucleated RBC 0.00 Immature Gran % 7 H Nucleated RBC % 0 Sodium 140 139 Potassium 3.6 3.0 L D Chloride 100 100 Carbon Dioxide 32.6 H 29.9 Anion Gap 7 9 BUN 7 L 7 L Creatinine 0.2 L 0.2 L Estim Creat Clear Calc 222.9 222.9 eGFR > 60 > 60 BUN/Creatinine Ratio 35 H 35 H Glucose 87 75 Calculated Osmolality 276 274 L Lactic Acid 1.7 Calcium 9.0 8.6 Corrected Calcium 9.4 9.4 Phosphorus 2.3 L Total Bilirubin 0.4 AST 27 ALT 30 Alkaline Phosphatase 197 H Total Protein 5.9 Albumin 3.5 D 3.0 L D Globulin 2.4 Albumin/Globulin Ratio 1.5 Vancomycin Trough 19.5 H ABG Interpretation ABG results: 01/12/25 01/12/25 01/12/25 02:43 04:40 07:51 ABG pH 7.51 H 7.39 D 7.40 ABG pCO2 29 L 41 D 40 ABG pO2 235 H 145 H D 152 H ABG HCO3 23 25 25 ABG O2 Saturation 100 H 99 H 99 H ABG Base Excess 0 0 0 VBG pH VBG pCO2 VBG pO2 VBG Base Excess 01/13/25 01/15/25 04:17 11:51 ABG pH 7.32 L ABG pCO2 43 ABG pO2 137 H ABG HCO3 22 ABG O2 Saturation 99 H ABG Base Excess -4 L VBG pH 7.65 VBG pCO2 37 VBG pO2 75 H VBG Base Excess 18 H Quality Measures Quality Measures VTE prophylaxis Assessment & Plan Assessment Current Active Medications: Generic Name Dose Route Start Last Admin Trade Name Freq PRN Reason Stop Dose Admin Acetaminophen 650 mg 01/27/25 11:50 01/28/25 11:50 Acetaminophen 325 Mg Tablet PO 02/26/25 11:49 650 mg Q6HR PRN Administration Fever >100.4 or pain 1-3 Hydrocodone Bitart/Acetaminophen 1 tab 01/26/25 11:00 01/29/25 09:21 Hydrocodone/Apap 5/325 Tablet PO 01/31/25 10:59 1 tab Q3HR PRN Administration Pain 4-6 Albuterol/Ipratropium 3 ml 01/16/25 11:56 01/16/25 12:04 Albuterol/Ipratropium (Duoneb) Rt Bambi 3 Ml Nebu INH 02/15/25 14:59 3 ml Q4HRRT PRN Administration SHORTNESS OF BREATH OR WHEEZE Ascorbic Acid 500 mg 01/18/25 10:30 01/29/25 08:40 Ascorbic Acid 250 Mg Tablet PO 02/17/25 10:29 Not Given BID CAMERON Dextrose 50 ml 01/13/25 06:35 Dextrose 50%-Water Inj 50 Ml Syringe IV 02/12/25 06:34 Q15MIN PRN BG <50 OR BG <70 & pt unresponsive Enoxaparin Sodium 40 mg 01/16/25 09:00 01/29/25 08:33 Enoxaparin Sod Inj 40 Mg/0.4 Ml Syringe SC 01/30/25 08:59 40 mg QDAY CAMERON Administration Glucagon 1 mg 01/13/25 06:35 Glucagon Inj 1 Mg Vial IM Q15MIN PRN BG <70, and no IV access Hydromorphone HCl 0.5 mg 01/26/25 10:38 01/27/25 23:27 Hydromorphone Inj 2 Mg/Ml Vial IVP 01/30/25 09:43 0.5 mg Q3HR PRN Administration PAIN SCALE 7-10 (Severe Piperacillin Sod/Tazobactam 50 mls @ 100 mls/hr 01/27/25 23:00 01/29/25 05:19 Sod 3.375 gm/ Sodium Chloride IV 02/03/25 22:59 100 mls/hr Q8HR CAMERON Administration Vancomycin/Sodium Chloride 750 mg in 150 mls @ 120 mls/hr 01/29/25 07:30 01/29/25 08:32 Vancomycin/Ns 750 Mg Ivpb IV 02/05/25 07:29 120 mls/hr Q8HR CAMERON Administration Protocol Micafungin Sodium 100 mg/ 100 mls @ 100 mls/hr 01/29/25 11:30 01/29/25 13:20 Sodium Chloride IV 02/13/25 11:29 100 mls/hr QDAY CAMERON Administration Protocol Potassium Chloride 10 meq in 100 mls @ 100 mls/hr 01/29/25 14:26 Kcl Ivpb IV 01/29/25 17:25 Q1H CAMERON Insulin Human Lispro 0 unit 01/21/25 11:30 01/29/25 11:41 Insulin Lispro (Admelog) 1 Unit/0.01 Ml Unit SC 02/20/25 11:29 Not Given AC CAMERON Protocol Midodrine 10 mg 01/29/25 09:15 01/29/25 09:21 Midodrine 5 Mg Tablet PO 02/28/25 09:14 10 mg TID CAMERON Administration Nystatin 5 ml 01/28/25 17:00 01/29/25 11:43 Nystatin Susp 5 Ml Udc PO 02/04/25 16:59 5 ml QID CAMERON Administration Pharmacy Consult 1 each 01/28/25 09:00 Vancomycin Pharmacy To Dose 1 Each Each IV 02/27/25 08:59 QDAY PRN CONSULT Phenol/Menthol 0 ml 01/28/25 09:34 Phenol/Na Phenolate (Chloraseptic) [place] 180 Ml Btl PO 02/27/25 09:33 Q6HR PRN SORE THROAT Simethicone 80 mg 01/25/25 19:15 01/29/25 11:43 Simethicone 80 Mg Chew PO 02/24/25 19:14 80 mg Q6HR CAMERON Administration Zinc Sulfate 220 mg 01/18/25 10:30 01/29/25 08:40 Zinc Sulfate 220 Mg Capsule PO 02/17/25 10:29 Not Given QDAY CAMERON Plan 59-year-old female with past medical history of inflammatory bowel disease/ulcerative colitis on chronic steroids that was recently discharged on 12/21/2024 for IBS flareup and admitted on 01/11 for pneumoperitoneum requiring emergent ex-lap. Found to have multiple areas of small and large bowel perforation with feculent peritonitis as well as coloenteric fistulas. Underwent subtotal colectomy on 01/11 and subsequently admitted to the ICU for further management. patient was downgraded to medical floors on 01/15 for furtehr management. #Acute abdomen 2/2 Severe Peritonitis - resolved #POD#13 s/p subtotal colectomy with en-bloc partial small bowel resection #POD#10 s/p Re-exploration, SB anastomosis, cholecystectomy and end ileostomy in the setting of #Inflammatory Bowel Disease #Ulcerative Colitis, fistulizing likely distributive in setting of feculent peritonitis secondary to enterocutaneous fistulas secondary to IBD UC vs. Crohn's CT on admission: pneumoperitoneum and went to OR emergently. Found to have multiple bowel perforations in small and large intestine causing feculent peritonitis. 01/11: First operation with bowel resection and second 01/12: Blood cultures : Negative 01/14: small bowel anastomosis with end ileostomy, cholecystectomy, and abdominal washout with closure. She was extubated in PACU and then returned to ICU 01/16: Continue with Ice chips (ok with Surgeon), pain control, will wean down off dilaudid pump. Will need to wean off TPN at some point 01/18: Started on clear liquid diet, tolerating well. Will work on weaning off MILITARY COOK and TPN. 01/19: Diet advanced, no nausea/vomiting, minimal pain attributed to dairy intake. Will wean off MILITARY COOK and TPN 01/20: Diet has been advanced to dysphagia [address] Crooks. Patient is tolerating current diet, no abdominal pain, nausea or vomiting. 01/21: Tolerating dysphagia 2 diet well and drinking Ensure in between meals. Ileostomy is functioning well. Abdo pain occurs 30-40 mins after meals but improves with IV pain medicines. 01/22: She still reports some pain, before and after meals but is tolerating feeding without nausea or vomiting. Pain management on [place] 01/23: Reports that she is doing significantly better, had a decent sized breakfast this morning, tolerated well-no abdominal pain right after, no nausea or vomiting. On examination, abdomen is slightly tender. Ileostomy functioning well. Labs reviewed, WBC uptrended to 25. Per ID recs, will continue IV Unasyn. Patient working with physical therapy, progress noted. Will slowly wean off IV pain medications 01/24: Patient is doing well on her diet, no nausea or vomiting, pain is improving. She still little tachycardic, possibly pain related. Labs reviewed, WBC downtrending at 19 today and hemoglobin dropped to 8.7 but patient has no bleeding noted. Evaluated by ID today, will complete IV Unasyn. 01/25: pain is worse. IV dilaudid increased back to 1mg. CT abdomen/pelvis w/ contrast ordered to evaluate abdominal tenderness and worsening clinical status. WBC downtrending 25 -> 19 -> 15, patient remains afebrile. 01/26: Had a repeat CT abdomen done which showed a 4 mm stone in the common hepatic duct and 3 mm in the common bile duct. Evaluated by GI Dr. Gamboa who does not need recommended additional interventions at this time as LFTs are normal. At bedside today, patient has no complaints except minimal pain, still tolerating diet. She did not ambulate with physical therapy yesterday, recommended for PT today 01/27: Patient had rapid response and sepsis alert was called, 1.5 L NS was given, antibiotic coverage broadened to vancomycin and Zosyn, pain regimen adjusted. Patient BP has been well, received 1 L bolus lactated Ringer's. -On vancomycin and Zosyn -Dr Crooks following, appreciate recommendations -HIDA scan ordered to evaluate bile leakage, results pending -Pain management with [place] (1-6) -GI to evaluate when to resume mesalamine -Physical therapy to continue working with the patient. -ID consulted appreciate recommendations -Midodrine 10 mg p.o. 3 times daily -Patient to be discharged to SNF for continued rehab, pending authorization #Protein Calorie Malnutrition-improving #Hypokalemia - recurrent #Hypomagnesemia The patient has had persistently low albumin level since prior to surgery. Likely due to decreased intake as well as losses Dietary recommendations appreciated 01/23-total protein 5.3, albumin 3.2 01/26/2025: Potassium- 3.1, Mg- 1.7 -IV albumin 25 g x1 given -Continue oral diet #Dyspnea- resolved #Cough- resolved -Incentive spirometry at bedside -Chest physiotherapy qD #Reactive Leukocytosis- resolved WBC : 29 -> 24 -> 22 -> 23.9 Likely secondary to steroid use WBC today: 8.9 Patient was on steroids at some point however discontinued -On IV antibiotics #Normocytic anemia - resolved Presented with hemoglobin of 7.8 that improved to 9.2 after 4 units PRBC, and is also status-post 1 unit FFP 01/15 : Hb 12.2 , wnl -Stable, continue to monitor Disposition: Telemetry DVT prophylaxis: Lovenox GI prophylaxis: None Diet: Regular CODE STATUS: Full code Plan of care discussed with attending Dr. Saravia. Ridge Hackett MD PGY?1
--- NOTE | 2025-01-29 15:50 | ESPR_ITS ---
Documentation for date of: 01/29/25 Subjective Subjective Interval history: Patient evaluated small bowel x-ray shows some distention of the small bowel but no real signs of any obstruction As per my review HIDA scan shows normal activity of the common bile duct as well as a small bowel WBC count 12.7 hemoglobin hematocrit 10.4 and 32.5 Exam Vital Signs Temp Pulse Resp BP Pulse Ox O2 Del Method O2 Flow Rate 97.8 F 105 H 19 97/72 98 Room Air 2 01/29/25 12:00 01/29/25 12:00 01/29/25 12:00 01/29/25 12:00 01/29/25 12:00 01/29/25 12:00 01/27/25 12:00 FiO2 30 01/27/25 12:00 Constitutional Comments: Chronically ill-appearing Routine Respiratory Exam Comments: Normal to auscultation Routine Abdominal Exam Comments: Positive bowel sounds functioning ileostomy Objective Labs 01/29/25 04:14 01/29/25 10:17 Labs: Laboratory Results - last 24 hr 01/28/25 01/29/25 01/29/25 21:05 04:14 10:17 WBC 12.7 H RBC 3.45 L Hgb 10.4 L Hct 32.5 L MCV 94 MCH 30.1 MCHC 32.0 RDW Std Deviation 56.2 H Plt Count 729 H Neut % (Auto) 68 Lymph % (Auto) 15 [place] % (Auto) 5 Eos % (Auto) 3 Baso % (Auto) 1 Neut # (Auto) 8.7 H Lymph # (Auto) 1.9 [place] # (Auto) 0.6 Eos # (Auto) 0.4 Baso # (Auto) 0.1 Immature Gran # (Auto) 0.93 H Absolute Nucleated RBC 0.00 Immature Gran % 7 H Nucleated RBC % 0 Sodium 140 139 Potassium 3.6 3.0 L D Chloride 100 100 Carbon Dioxide 32.6 H 29.9 Anion Gap 7 9 BUN 7 L 7 L Creatinine 0.2 L 0.2 L Estim Creat Clear Calc 222.9 222.9 eGFR > 60 > 60 BUN/Creatinine Ratio 35 H 35 H Glucose 87 75 Calculated Osmolality 276 274 L Lactic Acid 1.7 Calcium 9.0 8.6 Corrected Calcium 9.4 9.4 Phosphorus 2.3 L Total Bilirubin 0.4 AST 27 ALT 30 Alkaline Phosphatase 197 H Total Protein 5.9 Albumin 3.5 D 3.0 L D Globulin 2.4 Albumin/Globulin Ratio 1.5 Vancomycin Trough 19.5 H Impressions Impression: Status post exploratory laparotomy with subtotal colectomy No evidence of small bowel obstruction at the moment Normal HIDA scan Continue current management ABG Interpretation ABG results: 01/12/25 01/12/25 01/12/25 02:43 04:40 07:51 ABG pH 7.51 H 7.39 D 7.40 ABG pCO2 29 L 41 D 40 ABG pO2 235 H 145 H D 152 H ABG HCO3 23 25 25 ABG O2 Saturation 100 H 99 H 99 H ABG Base Excess 0 0 0 VBG pH VBG pCO2 VBG pO2 VBG Base Excess 01/13/25 01/15/25 04:17 11:51 ABG pH 7.32 L ABG pCO2 43 ABG pO2 137 H ABG HCO3 22 ABG O2 Saturation 99 H ABG Base Excess -4 L VBG pH 7.65 VBG pCO2 37 VBG pO2 75 H VBG Base Excess 18 H Assessment & Plan A&P Narrative cx neg. on zosyn for 3-4d post op or so. doing ok on unasyn for past several days. has been off steroid since 01/16 (last dose that day apparently) finishes iv unasyn today.ok with me i f you want her on po rx at home. that is a choice you can make. suggest po augmentin 875 bid for 5d more if you choose that approach, but I am ok with nothing. will see again prn Time Spent With Patient Time: Total time spent is greater than 50% in coordination of care (as documented) at patient's floor/unit and/or counseling patient:
[2025-01-29] MEDS: POTASSIUM CHL 10 mEq IVPB 10 MEQ/100 ML BAG 50 MEQ IV ×2 (17:34→19:12)
[2025-01-29] MEDS: ASCORBIC ACID 250 MG TABLET 500 MG PO (20:28)
[2025-01-29] MEDS: HYDROmorphone INJ 2 MG/ML VIAL 0.25 MG IVP (21:07)
[2025-01-30] VITALS (9 sets, daily range): BP systolic 102–121; BP diastolic 63–77; PULSE 91–112; RESP 12–20; TEMP 36.1–36.7; O2SAT 95–98; BMI 18.6
[2025-01-30] MEDS: POTASSIUM CHL 10 mEq IVPB 10 MEQ/100 ML BAG 40 MEQ IV (00:34)
[2025-01-30] MEDS: HYDROcodone/APAP 5/325 TABLET 1 TAB PO ×3 (04:36→14:09)
[2025-01-30] MEDS: MIDODRINE 5 MG TABLET 10 MG PO ×2 (05:12→14:07)
[2025-01-30] MEDS: PIPER/TAZO INJ 3.375 GM in SODIUM CHLORIDE 0.9% (Popper) 50 ML IV (05:12)
[2025-01-30] MEDS: SIMETHICONE 80 MG CHEW PO ×3 (05:17→17:04)
[2025-01-30 05:46] LABS: Basophils # (Auto) 0.1 Thou/mm3 (0.0-0.2); Basophils % (Auto) 1 % (0-2.5); Eosinophils # (Auto) 0.8 Thou/mm3 (0.0-0.5); Eosinophils % (Auto) 5 % (0-10); Hematocrit 28.9 % (36.0-46.0); Hemoglobin 9.2 g/dL (12.0-16.0); Immature Granulocytes % (Auto) 10 % (0-0); Immature Granulocytes Auto 1.44 Thou/mm3 (0.00-0.00); Lymphocytes # (Auto) 2.1 Thou/mm3 (1.0-4.8); Lymphocytes % (Auto) 14 % (10-50); Mean Corpuscular HGB Conc 31.8 g/dl (31.0-37.0); Mean Corpuscular Hemoglobin 29.9 pg (25.0-35.0); Mean Corpuscular Volume 94 fL (80-100); Monocytes # (Auto) 0.7 Thou/mm3 (0.0-0.8); Monocytes % (Auto) 4 % (0-12); Neutrophils % (Auto) 66 % (37-80); Nucleated Red Blood Cell % 0 /100 WBC (0); Platelet Count 825 Thou/mm3 (140-440); RDW Standard Deviation 57.1 fL (36.4-46.3); Red Blood Count 3.08 Miln/mm3 (4.00-5.20); White Blood Count 15.2 Thou/mm3 (3.6-11.0)
[2025-01-30 06:19] LABS: Anion Gap 6 (7-16); BUN/Creatinine Ratio 25 Ratio (12-20); Blood Urea Nitrogen 10 mg/dL (9-23); Carbon Dioxide 30.8 mMol/L (20.0-31.0); Chloride 102 mMol/L (98-107); Creatinine (Component) 0.4 mg/dL (0.6-1.3); Estimated Creatinine Clearance 111.5 mL/min (>60); Glucose 90 mg/dL (74-106); Potassium 3.1 mMol/L (3.4-5.1); Sodium 139 mMol/L (136-145); eGFR > 60 See Note
[2025-01-30 06:20] LABS: Alanine Aminotransferase 27 U/L (10-49); Albumin/Globulin Ratio 1.3 (1.2-2.2); Alkaline Phosphatase 177 U/L (46-116); Aspartate Amino Transferase 25 U/L (0-34); Bilirubin,Total 0.3 mg/dL (0.3-1.2); Calcium 8.5 mg/dL (8.3-10.6); Calcium (Corrected) 9.3 mg/dL (8.5-10.1); Globulin 2.3 gm/dL (2.3-3.5); Osmolality,Calculated 276 (275-295); Total Protein 5.3 gm/dL (5.7-8.2); Vancomycin,Trough 29.4 mcg/mL (5.0-10.0)
--- NOTE | 2025-01-30 07:22 | PD.IDPROG ---
Subjective Subjective Interval history: additional abx given on basis of a wbc. done daily by primary team. surgery had weighed in and is unimpressed. I am remote but do not see any overt indication for new rx either Exam Vital Signs Temp Pulse Resp BP Pulse Ox O2 Del Method O2 Flow Rate 98.0 F 92 12 104/67 97 Room Air 2 01/30/25 04:00 01/30/25 05:12 01/30/25 04:00 01/30/25 05:12 01/30/25 04:00 01/30/25 04:00 01/27/25 12:00 FiO2 30 01/27/25 12:00 Narrative Exam daily wbc that is higher than it had been in pt with recent surgery and no fever Objective - Internal Medicine Labs 01/30/25 05:12 01/30/25 05:12 Labs: Laboratory Results - last 24 hr 01/29/25 01/30/25 10:17 05:12 WBC 15.2 H RBC 3.08 L Hgb 9.2 L Hct 28.9 L MCV 94 MCH 29.9 MCHC 31.8 RDW Std Deviation 57.1 H Plt Count 825 H D Neut % (Auto) 66 Lymph % (Auto) 14 [place] % (Auto) 4 Eos % (Auto) 5 Baso % (Auto) 1 Neut # (Auto) 10.0 H Lymph # (Auto) 2.1 [place] # (Auto) 0.7 Eos # (Auto) 0.8 H Baso # (Auto) 0.1 Immature Gran # (Auto) 1.44 H Absolute Nucleated RBC 0.00 Immature Gran % 10 H Nucleated RBC % 0 Sodium 139 139 Potassium 3.0 L D 3.1 L Chloride 100 102 Carbon Dioxide 29.9 30.8 Anion Gap 9 6 L BUN 7 L 10 Creatinine 0.2 L 0.4 L Estim Creat Clear Calc 222.9 111.5 eGFR > 60 > 60 BUN/Creatinine Ratio 35 H 25 H Glucose 75 90 Calculated Osmolality 274 L 276 Lactic Acid 1.7 Calcium 8.6 8.5 Corrected Calcium 9.4 9.3 Phosphorus 2.3 L Total Bilirubin 0.3 AST 25 ALT 27 Alkaline Phosphatase 177 H D Total Protein 5.3 L Albumin 3.0 L D 3.0 L Globulin 2.3 Albumin/Globulin Ratio 1.3 Vancomycin Trough 29.4 H* ABG Interpretation ABG results: 01/12/25 01/12/25 01/12/25 02:43 04:40 07:51 ABG pH 7.51 H 7.39 D 7.40 ABG pCO2 29 L 41 D 40 ABG pO2 235 H 145 H D 152 H ABG HCO3 23 25 25 ABG O2 Saturation 100 H 99 H 99 H ABG Base Excess 0 0 0 VBG pH VBG pCO2 VBG pO2 VBG Base Excess 01/13/25 01/15/25 04:17 11:51 ABG pH 7.32 L ABG pCO2 43 ABG pO2 137 H ABG HCO3 22 ABG O2 Saturation 99 H ABG Base Excess -4 L VBG pH 7.65 VBG pCO2 37 VBG pO2 75 H VBG Base Excess 18 H Assessment & Plan A&P Narrative relative leucocytosis in pt who had received steroids. Hospitalist team checks it daily, that does not make it a better test. i f you want her on po rx at home. that is a choice. suggest po augmentin as noted before she needs to take her IBD rx daily I can see her on wed if she remains in house but I will not be there till wed pm Time Spent With Patient Time: Total time spent is greater than 50% in coordination of care (as documented) at patient's floor/unit and/or counseling patient:
[2025-01-30] MEDS: ZINC SULFATE 220 MG CAPSULE PO (07:59)
[2025-01-30] MEDS: ASCORBIC ACID 250 MG TABLET 500 MG PO ×2 (07:59→20:16)
[2025-01-30] MEDS: MICAFUNGIN SODIUM INJ 100 MG in SODIUM CHLORIDE 0.9% 100 ML IV (08:00)
[2025-01-30] MEDS: POTASSIUM CHLORIDE 20 mEq TABCR 40 MEQ PO (09:41)
[2025-01-30] MEDS: HYDROmorphone INJ 2 MG/ML VIAL 0.5 MG IVP (11:13)
[2025-01-30] MEDS: cefTRIAXone 1,000 MG in SODIUM CHLORIDE 0.9% (Popper) 50 ML 100 MG IV (11:14)
[2025-01-30] MEDS: NYSTATIN SUSP 5 ML UDC PO ×2 (11:14→17:04)
--- NOTE | 2025-01-30 12:57 | ESPR_ITS ---
Documentation for date of: 01/30/25 Subjective Subjective Narrative: Patient is seen and examined. She is lying comfortably. She is drinking ensures but not eating much. She is not ambulating Exam Vital Signs Temp Pulse Resp BP Pulse Ox O2 Del Method O2 Flow Rate 97.2 F 110 H 17 102/63 97 Room Air 2 01/30/25 08:00 01/30/25 12:00 01/30/25 08:00 01/30/25 08:00 01/30/25 08:00 01/30/25 08:00 01/27/25 12:00 FiO2 30 01/27/25 12:00 Constitutional Constitutional: no acute distress Routine Abdominal Exam Comments: Abdomen is soft and nondistended. Ileostomy is functioning. There is very minimal drainage from the inferior aspect of the incision without erythema, remainder of the incision is clean, dry and intact Assessment & Plan Assessment Additional comments: Status post subtotal colectomy with en bloc small bowel resection, cholecystectomy and end ileostomy. On her recent CT scan there is no evidence of intra-abdominal abscess, no evidence of slava-incisional fluid collection or abscess. HIDA scan did not show bile leak, upper GI series did not show evidence of anastomotic leak Plan She has some yellowish drainage from the inferior aspect of the incision, I do not think she has evidence of abscess, slava-incisional infection or intra- abdominal infection. Recent chest x-ray and CT scan showed evidence of pneumonia, she was started on ceftriaxone. She needs to make more effort to ambulate more, use incentive spirometer. Procedures Procedures Exploratory laparotomy, small bowel anastomosis with end ileostomy Cholecystectomy Abdominal washout and closure
--- NOTE | 2025-01-30 16:10 | ESPR_ITS ---
<Statement entered by Graciela aHrris MD - 01/31/25 11:41> Patient is a 59-year-old female with past medical history significant for ulcerative colitis on chronic steroids who presented to the ED with a flareup on 01/11/2025 requiring emergent X laparotomy. Since hospital stay, patient has underwent subtotal colectomy with end ileostomy, and abdominal washout with closure, cholecystectomy. Patient seen and examined at bedside today. Patient continues to have purulent drainage, however less frequently than seen on Wednesday. Patient's pain is well-controlled with IV Dilaudid and p.o. [place]. Patient also had eaten about 75% of her breakfast today. Patient is more motivated to work with PT today. Will continue to monitor patient's vital signs and symptoms. Social work reached out to LTAC for possible placement status post hospital stay. Gen surge continues to follow, and recommends no further imaging at this point. I discussed with and supervised the international controller physician who took care of this patient. I personally saw and examined the patient and discussed the assessment and plan with the entire medicine team, including my attending Dr. Recinos, I agree with most of the assessment and plan as documented below Graciela Harris M.D. PGY-2 Disclaimer: Despite multiple revisions, due to the dictation software being used, the document bellow may not be free of grammatical errors including phonetic/typographic errors. However, this does not deter from our commitment to providing health care in the patient's best interest in mind. Documentation for date of: 01/30/25 Subjective Subjective Interval history: No overnight events. Patient seen and examined at bedside. No significant changes. Continues to complain of abdominal pain and fatigue. Denies fevers, chills, shortness of breath. Continue to change dressings as appropriate, follow-up on ID consult. Making plans for LTAC. Exam Vital Signs Temp Pulse Resp BP Pulse Ox O2 Del Method O2 Flow Rate 97.7 F 112 H 18 119/70 97 Room Air 2 01/30/25 12:00 01/30/25 14:07 01/30/25 12:00 01/30/25 14:07 01/30/25 12:00 01/30/25 12:00 01/27/25 12:00 FiO2 30 01/27/25 12:00 Narrative Exam PE: Gen: Well-developed and well-nourished. Appears ill. HEENT: NCAT, PERRLA, EOMI, MMM, anicteric conjunctivae. CVS: normal S1 and S2. RRR. No M/R/G. Resp: CTA B/L. No rhonchi, rales, crackles or wheezing. Abd: soft, non-distended. Ileostomy functioning well. Patient tender to mild palpation. Incision site bandage, with some drainage at the inferior aspect. MSK: Good ROM in BUE & BLE. No edema or rash. Neuro: CN II-XII grossly intact. Strength 5/5 in BUE & BLE. Alert and oriented x3. Objective Labs 01/31/25 05:13 01/31/25 05:13 Labs: Laboratory Results - last 24 hr 01/30/25 05:12 WBC 15.2 H RBC 3.08 L Hgb 9.2 L Hct 28.9 L MCV 94 MCH 29.9 MCHC 31.8 RDW Std Deviation 57.1 H Plt Count 825 H D Neut % (Auto) 66 Lymph % (Auto) 14 [place] % (Auto) 4 Eos % (Auto) 5 Baso % (Auto) 1 Neut # (Auto) 10.0 H Lymph # (Auto) 2.1 [place] # (Auto) 0.7 Eos # (Auto) 0.8 H Baso # (Auto) 0.1 Immature Gran # (Auto) 1.44 H Absolute Nucleated RBC 0.00 Immature Gran % 10 H Nucleated RBC % 0 Sodium 139 Potassium 3.1 L Chloride 102 Carbon Dioxide 30.8 Anion Gap 6 L BUN 10 Creatinine 0.4 L Estim Creat Clear Calc 111.5 eGFR > 60 BUN/Creatinine Ratio 25 H Glucose 90 Calculated Osmolality 276 Calcium 8.5 Corrected Calcium 9.3 Total Bilirubin 0.3 AST 25 ALT 27 Alkaline Phosphatase 177 H D Total Protein 5.3 L Albumin 3.0 L Globulin 2.3 Albumin/Globulin Ratio 1.3 Vancomycin Trough 29.4 H* ABG Interpretation ABG results: 01/12/25 01/12/25 01/12/25 02:43 04:40 07:51 ABG pH 7.51 H 7.39 D 7.40 ABG pCO2 29 L 41 D 40 ABG pO2 235 H 145 H D 152 H ABG HCO3 23 25 25 ABG O2 Saturation 100 H 99 H 99 H ABG Base Excess 0 0 0 VBG pH VBG pCO2 VBG pO2 VBG Base Excess 01/13/25 01/15/25 04:17 11:51 ABG pH 7.32 L ABG pCO2 43 ABG pO2 137 H ABG HCO3 22 ABG O2 Saturation 99 H ABG Base Excess -4 L VBG pH 7.65 VBG pCO2 37 VBG pO2 75 H VBG Base Excess 18 H Quality Measures Quality Measures VTE prophylaxis Assessment & Plan Assessment Current Active Medications: Generic Name Dose Route Start Last Admin Trade Name Freq PRN Reason Stop Dose Admin Acetaminophen 650 mg 01/27/25 11:50 01/28/25 11:50 Acetaminophen 325 Mg Tablet PO 02/26/25 11:49 650 mg Q6HR PRN Administration Fever >100.4 or pain 1-3 Hydrocodone Bitart/Acetaminophen 1 tab 01/30/25 11:06 01/30/25 14:09 Hydrocodone/Apap 5/325 Tablet PO 01/31/25 10:59 1 tab Q6HR PRN Administration Pain 4-6 Albuterol/Ipratropium 3 ml 01/16/25 11:56 01/16/25 12:04 Albuterol/Ipratropium (Duoneb) Rt Bambi 3 Ml Nebu INH 02/15/25 14:59 3 ml Q4HRRT PRN Administration SHORTNESS OF BREATH OR WHEEZE Ascorbic Acid 500 mg 01/18/25 10:30 01/30/25 07:59 Ascorbic Acid 250 Mg Tablet PO 02/17/25 10:29 500 mg BID CAMERON Administration Dextrose 50 ml 01/13/25 06:35 Dextrose 50%-Water Inj 50 Ml Syringe IV 02/12/25 06:34 Q15MIN PRN BG <50 OR BG <70 & pt unresponsive Glucagon 1 mg 01/13/25 06:35 Glucagon Inj 1 Mg Vial IM Q15MIN PRN BG <70, and no IV access Hydromorphone HCl 0.25 mg 01/30/25 15:00 Hydromorphone Inj 2 Mg/Ml Vial IVP 02/04/25 14:59 Q4HR PRN PAIN SCALE 7-10 (Severe Micafungin Sodium 100 mg/ 100 mls @ 100 mls/hr 01/29/25 11:30 01/30/25 08:00 Sodium Chloride IV 02/13/25 11:29 100 mls/hr QDAY CAMERON Administration Protocol Ceftriaxone Sodium 1,000 mg/ 50 mls @ 100 mls/hr 01/30/25 10:43 01/30/25 11:14 Sodium Chloride IV 02/06/25 10:42 100 mls/hr QDAY CAMERON Administration Insulin Human Lispro 0 unit 01/21/25 11:30 01/30/25 11:30 Insulin Lispro (Admelog) 1 Unit/0.01 Ml Unit SC 02/20/25 11:29 Not Given AC CAMERON Protocol Midodrine 10 mg 01/29/25 09:15 01/30/25 14:07 Midodrine 5 Mg Tablet PO 02/28/25 09:14 10 mg TID CAMERON Administration Nystatin 5 ml 01/28/25 17:00 01/30/25 11:14 Nystatin Susp 5 Ml Udc PO 02/04/25 16:59 5 ml QID CAMERON Administration Phenol/Menthol 0 ml 01/28/25 09:34 Phenol/Na Phenolate (Chloraseptic) [place] 180 Ml Btl PO 02/27/25 09:33 Q6HR PRN SORE THROAT Simethicone 80 mg 01/25/25 19:15 01/30/25 11:48 Simethicone 80 Mg Chew PO 02/24/25 19:14 80 mg Q6HR CAMERON Administration Zinc Sulfate 220 mg 01/18/25 10:30 01/30/25 07:59 Zinc Sulfate 220 Mg Capsule PO 02/17/25 10:29 220 mg QDAY CAMERON Administration Plan 59-year-old female with past medical history of inflammatory bowel disease/ulcerative colitis on chronic steroids that was recently discharged on 12/21/2024 for IBS flareup and admitted on 01/11 for pneumoperitoneum requiring emergent ex-lap. Found to have multiple areas of small and large bowel perforation with feculent peritonitis as well as coloenteric fistulas. Underwent subtotal colectomy on 01/11 and subsequently admitted to the ICU for further management. patient was downgraded to medical floors on 01/15 for furtehr management. #Acute abdomen 2/2 Severe Peritonitis - resolved #POD#13 s/p subtotal colectomy with en-bloc partial small bowel resection #POD#10 s/p Re-exploration, SB anastomosis, cholecystectomy and end ileostomy in the setting of #Inflammatory Bowel Disease #Ulcerative Colitis, fistulizing likely distributive in setting of feculent peritonitis secondary to enterocutaneous fistulas secondary to IBD UC vs. Crohn's CT on admission: pneumoperitoneum and went to OR emergently. Found to have multiple bowel perforations in small and large intestine causing feculent peritonitis. 01/11: First operation with bowel resection and second 01/12: Blood cultures : Negative 01/14: small bowel anastomosis with end ileostomy, cholecystectomy, and abdominal washout with closure. She was extubated in PACU and then returned to ICU 01/16: Continue with Ice chips (ok with Surgeon), pain control, will wean down off dilaudid pump. Will need to wean off TPN at some point 01/18: Started on clear liquid diet, tolerating well. Will work on weaning off FORM [employer]ER and TPN. 01/19: Diet advanced, no nausea/vomiting, minimal pain attributed to dairy intake. Will wean off FORM BLOCK MA[employer]ER and TPN 01/20: Diet has been advanced to dysphagia [address] Crooks. Patient is tolerating current diet, no abdominal pain, nausea or vomiting. 01/21: Tolerating dysphagia 2 diet well and drinking Ensure in between meals. Ileostomy is functioning well. Abdo pain occurs 30-40 mins after meals but improves with IV pain medicines. 01/22: She still reports some pain, before and after meals but is tolerating feeding without nausea or vomiting. Pain management on [place] 01/23: Reports that she is doing significantly better, had a decent sized breakfast this morning, tolerated well-no abdominal pain right after, no nausea or vomiting. On examination, abdomen is slightly tender. Ileostomy functioning well. Labs reviewed, WBC uptrended to 25. Per ID recs, will continue IV Unasyn. Patient working with physical therapy, progress noted. Will slowly wean off IV pain medications 01/24: Patient is doing well on her diet, no nausea or vomiting, pain is improving. She still little tachycardic, possibly pain related. Labs reviewed, WBC downtrending at 19 today and hemoglobin dropped to 8.7 but patient has no bleeding noted. Evaluated by ID today, will complete IV Unasyn. 01/25: pain is worse. IV dilaudid increased back to 1mg. CT abdomen/pelvis w/ contrast ordered to evaluate abdominal tenderness and worsening clinical status. WBC downtrending 25 -> 19 -> 15, patient remains afebrile. 01/26: Had a repeat CT abdomen done which showed a 4 mm stone in the common hepatic duct and 3 mm in the common bile duct. Evaluated by GI Dr. Gamboa who does not need recommended additional interventions at this time as LFTs are normal. At bedside today, patient has no complaints except minimal pain, still tolerating diet. She did not ambulate with physical therapy yesterday, recommended for PT today 01/27: Patient had rapid response and sepsis alert was called, 1.5 L NS was given, antibiotic coverage broadened to vancomycin and Zosyn, pain regimen adjusted. Patient BP has been well, received 1 L bolus lactated Ringer's. HIDA scan negative for bile leak. -On vancomycin, Zosyn, micafungin -Dr Crooks following, appreciate recommendations -Pain management with [place] (1-6) -Dilaudid 0.25 every 4 hours as needed for severe pain -GI to evaluate when to resume mesalamine -Physical therapy to continue working with the patient. -ID consulted appreciate recommendations -Midodrine 10 mg p.o. 3 times daily -Patient to be discharged to LTAC for continued rehab #Protein Calorie Malnutrition-improving #Hypokalemia - recurrent #Hypomagnesemia The patient has had persistently low albumin level since prior to surgery. Likely due to decreased intake as well as losses Dietary recommendations appreciated 01/23-total protein 5.3, albumin 3.2 01/26/2025: Potassium- 3.1, Mg- 1.7 IV albumin 25 g x1 given -Continue oral diet #Dyspnea- resolved #Cough- resolved -Incentive spirometry at bedside -Chest physiotherapy qD #Reactive Leukocytosis- resolved WBC : 29 -> 24 -> 22 -> 23.9 Likely secondary to steroid use WBC today: 8.9 Patient was on steroids at some point however discontinued -On IV antibiotics #Normocytic anemia - resolved Presented with hemoglobin of 7.8 that improved to 9.2 after 4 units PRBC, and is also status-post 1 unit FFP 01/15 : Hb 12.2 , wnl -Stable, continue to monitor Disposition: Telemetry DVT prophylaxis: Lovenox GI prophylaxis: None Diet: Regular CODE STATUS: Full code Plan of care discussed with senior resident Dr. Harris PGY?[address] Recinos. Ridge Hackett MD PGY?1 Attending Provider Attestation/Addendum I, Karyna Recinos, DO, attest that I was physically present for the johnson portions of the service and evaluated the patient with the resident and I reviewed and discussed the case with the resident and agree with the resident's findings and plans of care as documented above Patient seen and eval this a.m. Sister is at bedside. Patient is in some distress as she complains of abdominal pain. Dressing was recently changed and appears to be clean and dry. However, nurse at bedside states that dressing had been soaked with purulent appearing drainage. However, patient states that drainage appears to have slowed down. She continues to have poor appetite due to abdominal pain. Will continue with frequent wound dressing changes and wound care. Will add Dilaudid as needed in addition to oral pain medications so that patient can participate in physical therapy. Patient may need an LTAC due to her slow recovery. Introduced the idea to patient and her sister at bedside. Will have social media executive reach out to LTAC facilities. No further interventions at this time per surgeon. Continue with current management.
[2025-01-30] MEDS: HYDROmorphone INJ 2 MG/ML VIAL 0.25 MG IVP ×2 (16:17→20:16)
--- NOTE | 2025-01-30 21:15 | PD.IMPROG ---
Documentation for date of: 01/30/25 Subjective Subjective Interval history: Patient laying in bed comfortably HIDA scan shows no leakage from a common bile duct Exam Vital Signs Temp Pulse Resp BP Pulse Ox O2 Del Method O2 Flow Rate 98.0 F 106 H 20 106/71 98 Room Air 2 01/30/25 20:00 01/30/25 20:00 01/30/25 20:00 01/30/25 20:00 01/30/25 20:00 01/30/25 20:00 01/27/25 12:00 FiO2 30 01/27/25 12:00 Objective Labs 01/30/25 05:12 01/30/25 05:12 Labs: Laboratory Results - last 24 hr 01/30/25 05:12 WBC 15.2 H RBC 3.08 L Hgb 9.2 L Hct 28.9 L MCV 94 MCH 29.9 MCHC 31.8 RDW Std Deviation 57.1 H Plt Count 825 H D Neut % (Auto) 66 Lymph % (Auto) 14 [place] % (Auto) 4 Eos % (Auto) 5 Baso % (Auto) 1 Neut # (Auto) 10.0 H Lymph # (Auto) 2.1 [place] # (Auto) 0.7 Eos # (Auto) 0.8 H Baso # (Auto) 0.1 Immature Gran # (Auto) 1.44 H Absolute Nucleated RBC 0.00 Immature Gran % 10 H Nucleated RBC % 0 Sodium 139 Potassium 3.1 L Chloride 102 Carbon Dioxide 30.8 Anion Gap 6 L BUN 10 Creatinine 0.4 L Estim Creat Clear Calc 111.5 eGFR > 60 BUN/Creatinine Ratio 25 H Glucose 90 Calculated Osmolality 276 Calcium 8.5 Corrected Calcium 9.3 Total Bilirubin 0.3 AST 25 ALT 27 Alkaline Phosphatase 177 H D Total Protein 5.3 L Albumin 3.0 L Globulin 2.3 Albumin/Globulin Ratio 1.3 Vancomycin Trough 29.4 H* Impressions Impression: Status post exploratory laparotomy for multiple perforations of the colon requiring subtotal colectomy end ileostomy Poor p.o. intake Not making effort for much physical therapy Advised to get more motivated try to eat better and get more involved with the physical therapy and ambulation ABG Interpretation ABG results: 01/12/25 01/12/25 01/12/25 02:43 04:40 07:51 ABG pH 7.51 H 7.39 D 7.40 ABG pCO2 29 L 41 D 40 ABG pO2 235 H 145 H D 152 H ABG HCO3 23 25 25 ABG O2 Saturation 100 H 99 H 99 H ABG Base Excess 0 0 0 VBG pH VBG pCO2 VBG pO2 VBG Base Excess 01/13/25 01/15/25 04:17 11:51 ABG pH 7.32 L ABG pCO2 43 ABG pO2 137 H ABG HCO3 22 ABG O2 Saturation 99 H ABG Base Excess -4 L VBG pH 7.65 VBG pCO2 37 VBG pO2 75 H VBG Base Excess 18 H Assessment & Plan A&P Narrative relative leucocytosis in pt who had received steroids. Hospitalist team checks it daily, that does not make it a better test. i f you want her on po rx at home. that is a choice. suggest po augmentin as noted before she needs to take her IBD rx daily I can see her on wed if she remains in house but I will not be there till wed pm Time Spent With Patient Time: Total time spent is greater than 50% in coordination of care (as documented) at patient's floor/unit and/or counseling patient:
[2025-01-31] VITALS (14 sets, daily range): BP systolic 96–113; BP diastolic 66–82; PULSE 96–123; RESP 15–20; TEMP 36–37.2; O2SAT 93–98; BMI 19.4; BMI 12.0
[2025-01-31] MEDS: HYDROcodone/APAP 5/325 TABLET 1 TAB PO ×3 (01:26→20:37)
[2025-01-31] MEDS: HYDROmorphone INJ 2 MG/ML VIAL 0.25 MG IVP ×5 (04:22→22:01)
--- NOTE | 2025-01-31 04:41 | PC.NURSE ---
[employer] downtime occurred on <01/31/25> from <0200> to <0320>
[2025-01-31 05:30] LABS: Basophils # (Auto) 0.1 Thou/mm3 (0.0-0.2); Basophils % (Auto) 1 % (0-2.5); Eosinophils # (Auto) 0.9 Thou/mm3 (0.0-0.5); Eosinophils % (Auto) 5 % (0-10); Hematocrit 30.2 % (36.0-46.0); Hemoglobin 9.7 g/dL (12.0-16.0); Immature Granulocytes % (Auto) 9 % (0-0); Immature Granulocytes Auto 1.58 Thou/mm3 (0.00-0.00); Lymphocytes # (Auto) 2.2 Thou/mm3 (1.0-4.8); Lymphocytes % (Auto) 12 % (10-50); Mean Corpuscular HGB Conc 32.1 g/dl (31.0-37.0); Mean Corpuscular Hemoglobin 29.9 pg (25.0-35.0); Mean Corpuscular Volume 93 fL (80-100); Monocytes # (Auto) 0.7 Thou/mm3 (0.0-0.8); Monocytes % (Auto) 4 % (0-12); Neutrophils # (Auto) 12.3 Thou/mm3 (1.8-7.7); Neutrophils % (Auto) 69 % (37-80); Nucleated Red Blood Cell % 0 /100 WBC (0); Platelet Count 777 Thou/mm3 (140-440); RDW Standard Deviation 56.4 fL (36.4-46.3); Red Blood Count 3.24 Miln/mm3 (4.00-5.20); White Blood Count 17.8 Thou/mm3 (3.6-11.0)
[2025-01-31 05:52] LABS: Alanine Aminotransferase 23 U/L (10-49); Albumin, Serum 3.1 gm/dL (3.4-4.8); Albumin/Globulin Ratio 1.3 (1.2-2.2); Alkaline Phosphatase 191 U/L (46-116); Anion Gap 6 (7-16); Aspartate Amino Transferase 21 U/L (0-34); BUN/Creatinine Ratio 25 Ratio (12-20); Bilirubin,Total 0.3 mg/dL (0.3-1.2); Blood Urea Nitrogen 10 mg/dL (9-23); Calcium 8.5 mg/dL (8.3-10.6); Calcium (Corrected) 9.2 mg/dL (8.5-10.1); Carbon Dioxide 30.8 mMol/L (20.0-31.0); Chloride 100 mMol/L (98-107); Creatinine (Component) 0.4 mg/dL (0.6-1.3); Estimated Creatinine Clearance 111.5 mL/min (>60); Globulin 2.4 gm/dL (2.3-3.5); Glucose 105 mg/dL (74-106); Osmolality,Calculated 272 (275-295); Potassium 3.5 mMol/L (3.4-5.1); Sodium 137 mMol/L (136-145); Total Protein 5.5 gm/dL (5.7-8.2); Vancomycin,Random 10.5 mcg/mL; eGFR > 60 See Note
[2025-01-31] MEDS: cefTRIAXone 1,000 MG in SODIUM CHLORIDE 0.9% (Popper) 50 ML 100 MG IV (09:10)
[2025-01-31] MEDS: ASCORBIC ACID 250 MG TABLET 500 MG PO ×2 (09:12→20:36)
[2025-01-31] MEDS: ZINC SULFATE 220 MG CAPSULE PO (09:12)
[2025-01-31] MEDS: MICAFUNGIN SODIUM INJ 100 MG in SODIUM CHLORIDE 0.9% 100 ML IV (10:17)
--- NOTE | 2025-01-31 11:40 | ESPR_ITS ---
<Statement entered by Kae Rodriguez MD - 01/31/25 14:38> I discussed with and supervised the agribusiness internship physician who took care of this patient. I personally saw and examined the patient and discussed the assessment and plan with the entire medicine team, including my attending Dr. Recinos, I agree with the assessment and plan as documented below No overnight acute events this morning at the bedside patient stated she feels much better, that she was able to tolerate breakfast, that she is using her incentive spirometer , that the pain has been well-controlled with Dilaudid 0.25 IV every 4 hours and [place] p.o. 5/325 every 6 hours as needed we encouraged the patient continue to work with physical therapy. Case management is following of the case, pending LTAC authorization. Will continue to monitor closely. Patient seen and examined at bedside today. Labs and imaging reviewed. Kae Rodriguez MD PGY-3 Disclaimer: Despite multiple revisions, due to the dictation software being used, the document bellow may not be free of grammatical errors including phonetic/typographic errors. However, this does not deter from our commitment to providing health care in the patient's best interest in mind. Documentation for date of: 01/31/25 Subjective Subjective Interval history: No overnight events. Patient seen and examined at bedside. Patient resting comfortably. Patient appears more energetic today. Patient reports having good night sleep, very appreciative of current pain management regiment. Patient ate 75% of breakfast this morning, denies nausea or vomiting, abdominal pain, fevers, chills, shortness of breath. Encourage patient to work with physical therapy today. Follow-up on ID consult today. Planning for discharge to LTAC for long-term rehab. Exam Vital Signs Temp Pulse Resp BP Pulse Ox O2 Del Method O2 Flow Rate 97.7 F 96 16 96/67 97 Room Air 2 01/31/25 08:15 01/31/25 08:15 01/31/25 08:15 01/31/25 08:15 01/31/25 08:15 01/31/25 08:15 01/27/25 12:00 FiO2 30 01/27/25 12:00 Narrative Exam PE: Gen: Well-developed and well-nourished. Appears mildly ill. HEENT: NCAT, PERRLA, EOMI, MMM, anicteric conjunctivae. CVS: normal S1 and S2. RRR. No M/R/G. Resp: CTA B/L. No rhonchi, rales, crackles or wheezing. Abd: soft, non-distended. Ileostomy functioning well. Patient tender to mild palpation. Incision site bandage, with some drainage at the inferior aspect. MSK: Good ROM in BUE & BLE. No edema or rash. Neuro: CN II-XII grossly intact. Strength 5/5 in BUE & BLE. Alert and oriented x3. Objective Labs 01/31/25 05:13 01/31/25 05:13 Labs: Laboratory Results - last 24 hr 01/31/25 05:13 WBC 17.8 H RBC 3.24 L Hgb 9.7 L Hct 30.2 L MCV 93 MCH 29.9 MCHC 32.1 RDW Std Deviation 56.4 H Plt Count 777 H D Neut % (Auto) 69 Lymph % (Auto) 12 [place] % (Auto) 4 Eos % (Auto) 5 Baso % (Auto) 1 Neut # (Auto) 12.3 H Lymph # (Auto) 2.2 [place] # (Auto) 0.7 Eos # (Auto) 0.9 H Baso # (Auto) 0.1 Immature Gran # (Auto) 1.58 H Absolute Nucleated RBC 0.00 Immature Gran % 9 H Nucleated RBC % 0 Sodium 137 Potassium 3.5 Chloride 100 Carbon Dioxide 30.8 Anion Gap 6 L BUN 10 Creatinine 0.4 L Estim Creat Clear Calc 111.5 eGFR > 60 BUN/Creatinine Ratio 25 H Glucose 105 Calculated Osmolality 272 L Calcium 8.5 Corrected Calcium 9.2 Total Bilirubin 0.3 AST 21 ALT 23 Alkaline Phosphatase 191 H Total Protein 5.5 L Albumin 3.1 L Globulin 2.4 Albumin/Globulin Ratio 1.3 Random Vancomycin 10.5 ABG Interpretation ABG results: 01/12/25 01/12/25 01/12/25 02:43 04:40 07:51 ABG pH 7.51 H 7.39 D 7.40 ABG pCO2 29 L 41 D 40 ABG pO2 235 H 145 H D 152 H ABG HCO3 23 25 25 ABG O2 Saturation 100 H 99 H 99 H ABG Base Excess 0 0 0 VBG pH VBG pCO2 VBG pO2 VBG Base Excess 01/13/25 01/15/25 04:17 11:51 ABG pH 7.32 L ABG pCO2 43 ABG pO2 137 H ABG HCO3 22 ABG O2 Saturation 99 H ABG Base Excess -4 L VBG pH 7.65 VBG pCO2 37 VBG pO2 75 H VBG Base Excess 18 H Quality Measures Quality Measures VTE prophylaxis Assessment & Plan Assessment Current Active Medications: Generic Name Dose Route Start Last Admin Trade Name Freq PRN Reason Stop Dose Admin Acetaminophen 650 mg 01/27/25 11:50 01/28/25 11:50 Acetaminophen 325 Mg Tablet PO 02/26/25 11:49 650 mg Q6HR PRN Administration Fever >100.4 or pain 1-3 Hydrocodone Bitart/Acetaminophen 1 tab 01/30/25 11:06 01/31/25 07:44 Hydrocodone/Apap 5/325 Tablet PO 02/03/25 10:59 1 tab Q6HR PRN Administration Pain 4-6 Albuterol/Ipratropium 3 ml 01/16/25 11:56 01/16/25 12:04 Albuterol/Ipratropium (Duoneb) Rt Bambi 3 Ml Nebu INH 02/15/25 14:59 3 ml Q4HRRT PRN Administration SHORTNESS OF BREATH OR WHEEZE Ascorbic Acid 500 mg 01/18/25 10:30 01/31/25 09:12 Ascorbic Acid 250 Mg Tablet PO 02/17/25 10:29 500 mg BID CAMERON Administration Dextrose 50 ml 01/13/25 06:35 Dextrose 50%-Water Inj 50 Ml Syringe IV 02/12/25 06:34 Q15MIN PRN BG <50 OR BG <70 & pt unresponsive Glucagon 1 mg 01/13/25 06:35 Glucagon Inj 1 Mg Vial IM Q15MIN PRN BG <70, and no IV access Hydromorphone HCl 0.25 mg 01/31/25 13:30 Hydromorphone Inj 2 Mg/Ml Vial IVP 02/05/25 13:29 Q4HR PRN PAIN 7-10 Micafungin Sodium 100 mg/ 100 mls @ 100 mls/hr 01/29/25 11:30 01/31/25 10:17 Sodium Chloride IV 02/13/25 11:29 100 mls/hr QDAY CAMERON Administration Protocol Ceftriaxone Sodium 1,000 mg/ 50 mls @ 100 mls/hr 01/30/25 10:43 01/31/25 09:10 Sodium Chloride IV 02/06/25 10:42 100 mls/hr QDAY CAMERON Administration Midodrine 10 mg 01/29/25 09:15 01/31/25 06:08 Midodrine 5 Mg Tablet PO 02/28/25 09:14 Not Given TID CAMERON Nystatin 5 ml 01/28/25 17:00 01/31/25 05:58 Nystatin Susp 5 Ml Udc PO 02/04/25 16:59 Not Given QID CAMERON Phenol/Menthol 0 ml 01/28/25 09:34 Phenol/Na Phenolate (Chloraseptic) [place] 180 Ml Btl PO 02/27/25 09:33 Q6HR PRN SORE THROAT Simethicone 80 mg 01/25/25 19:15 01/31/25 06:09 Simethicone 80 Mg Chew PO 02/24/25 19:14 Not Given Q6HR CAMERON Zinc Sulfate 220 mg 01/18/25 10:30 01/31/25 09:12 Zinc Sulfate 220 Mg Capsule PO 02/17/25 10:29 220 mg QDAY CAMERON Administration Plan 59-year-old female with past medical history of inflammatory bowel disease/ulcerative colitis on chronic steroids that was recently discharged on 12/21/2024 for IBS flareup and admitted on 01/11 for pneumoperitoneum requiring emergent ex-lap. Found to have multiple areas of small and large bowel perforation with feculent peritonitis as well as coloenteric fistulas. Underwent subtotal colectomy on 01/11 and subsequently admitted to the ICU for further management. patient was downgraded to medical floors on 01/15 for furtehr management. #Acute abdomen 2/2 Severe Peritonitis - resolved #POD#13 s/p subtotal colectomy with en-bloc partial small bowel resection #POD#10 s/p Re-exploration, SB anastomosis, cholecystectomy and end ileostomy in the setting of #Inflammatory Bowel Disease #Ulcerative Colitis, fistulizing likely distributive in setting of feculent peritonitis secondary to enterocutaneous fistulas secondary to IBD UC vs. Crohn's CT on admission: pneumoperitoneum and went to OR emergently. Found to have multiple bowel perforations in small and large intestine causing feculent peritonitis. 01/11: First operation with bowel resection and second 01/12: Blood cultures : Negative 01/14: small bowel anastomosis with end ileostomy, cholecystectomy, and abdominal washout with closure. She was extubated in PACU and then returned to ICU 01/16: Continue with Ice chips (ok with Surgeon), pain control, will wean down off dilaudid pump. Will need to wean off TPN at some point 01/18: Started on clear liquid diet, tolerating well. Will work on weaning off INPATIENT NURSING AIDE and TPN. 01/19: Diet advanced, no nausea/vomiting, minimal pain attributed to dairy intake. Will wean off INPATIENT NURSING AIDE and TPN 01/20: Diet has been advanced to dysphagia [address] Crooks. Patient is tolerating current diet, no abdominal pain, nausea or vomiting. 01/21: Tolerating dysphagia 2 diet well and drinking Ensure in between meals. Ileostomy is functioning well. Abdo pain occurs 30-40 mins after meals but improves with IV pain medicines. 01/22: She still reports some pain, before and after meals but is tolerating feeding without nausea or vomiting. Pain management on [place] 01/23: Reports that she is doing significantly better, had a decent sized breakfast this morning, tolerated well-no abdominal pain right after, no nausea or vomiting. On examination, abdomen is slightly tender. Ileostomy functioning well. Labs reviewed, WBC uptrended to 25. Per ID recs, will continue IV Unasyn. Patient working with physical therapy, progress noted. Will slowly wean off IV pain medications 01/24: Patient is doing well on her diet, no nausea or vomiting, pain is improving. She still little tachycardic, possibly pain related. Labs reviewed, WBC downtrending at 19 today and hemoglobin dropped to 8.7 but patient has no bleeding noted. Evaluated by ID today, will complete IV Unasyn. 01/25: pain is worse. IV dilaudid increased back to 1mg. CT abdomen/pelvis w/ contrast ordered to evaluate abdominal tenderness and worsening clinical status. WBC downtrending 25 -> 19 -> 15, patient remains afebrile. 01/26: Had a repeat CT abdomen done which showed a 4 mm stone in the common hepatic duct and 3 mm in the common bile duct. Evaluated by GI Dr. Gamboa who does not need recommended additional interventions at this time as LFTs are normal. At bedside today, patient has no complaints except minimal pain, still tolerating diet. She did not ambulate with physical therapy yesterday, recommended for PT today 01/27: Patient had rapid response and sepsis alert was called, 1.5 L NS was given, antibiotic coverage broadened to vancomycin and Zosyn, pain regimen adjusted. Patient BP has been well, received 1 L bolus lactated Ringer's. HIDA scan negative for bile leak. -On vancomycin, Zosyn, micafungin -Dr Crooks following, appreciate recommendations -Pain management with [place] (1-6) -Dilaudid 0.25 every 4 hours as needed for severe pain -GI to evaluate when to resume mesalamine -Physical therapy to continue working with the patient. -ID consulted appreciate recommendations -Midodrine 10 mg p.o. 3 times daily -Discussed discharging to LTAC for continued rehab with patient #Protein Calorie Malnutrition-improving #Hypokalemia - recurrent #Hypomagnesemia The patient has had persistently low albumin level since prior to surgery. Likely due to decreased intake as well as losses Dietary recommendations appreciated 01/23-total protein 5.3, albumin 3.2 01/26/2025: Potassium- 3.1, Mg- 1.7 IV albumin 25 g x1 given -Continue oral diet #Dyspnea- resolved #Cough- resolved -Incentive spirometry at bedside -Chest physiotherapy qD #Reactive Leukocytosis- resolved WBC : 29 -> 24 -> 22 -> 23.9 Likely secondary to steroid use WBC today: 8.9 Patient was on steroids at some point however discontinued -On IV antibiotics #Normocytic anemia - resolved Presented with hemoglobin of 7.8 that improved to 9.2 after 4 units PRBC, and is also status-post 1 unit FFP 01/15 : Hb 12.2 , wnl -Stable, continue to monitor Disposition: Telemetry DVT prophylaxis: Lovenox GI prophylaxis: None Diet: Regular CODE STATUS: Full code Plan of care discussed with senior resident Dr. Harris PGY?[address] Recinos. Ridge Hackett MD PGY?1 Attending Provider Attestation/Addendum Meera, Karyna Recinos DO, attest that I was physically present for the johnson portions of the service and evaluated the patient with the resident and I reviewed and discussed the case with the resident and agree with the resident's findings and plans of care as documented above Patient seen and evaluated this AM. Patient states her pain has been better controlled with dilaudid and norco interchangeably. Patient was able to tolerate diet today. No acute events overnight otherwise. Wound continues to drain at proximal edge of wound, but appears to have slowed down. Will continue with wound care and pain managment.
--- NOTE | 2025-01-31 11:45 | ESPR_ITS ---
Documentation for date of: 01/31/25 Subjective Subjective Narrative: Patient is seen and examined. She is feeling much better today. She is eating better and currently working with physical therapist Exam Vital Signs Temp Pulse Resp BP Pulse Ox O2 Del Method O2 Flow Rate 97.7 F 96 16 96/67 97 Room Air 2 01/31/25 08:15 01/31/25 08:15 01/31/25 08:15 01/31/25 08:15 01/31/25 08:15 01/31/25 08:15 01/27/25 12:00 FiO2 30 01/27/25 12:00 Constitutional Constitutional: no acute distress Routine Abdominal Exam Comments: Abdomen is soft and nondistended. Ileostomy is functioning well. She has min imal purulent drainage from the inferior aspect of the incision, there is no erythema or cellulitis around the incision Assessment & Plan Assessment Additional comments: Status post subtotal colectomy with en bloc partial small bowel resection, cholecystectomy and end ileostomy Plan Diet as tolerated with Ensure supplements. Increase ambulation. Patient can be discharged to a rehab from surgical standpoint Procedures Procedures Exploratory laparotomy, small bowel anastomosis with end ileostomy Cholecystectomy Abdominal washout and closure
[2025-01-31] MEDS: NYSTATIN SUSP 5 ML UDC PO ×3 (12:30→20:37)
[2025-01-31] MEDS: SIMETHICONE 80 MG CHEW PO ×3 (12:30→23:29)
[2025-01-31] MEDS: MIDODRINE 5 MG TABLET 10 MG PO ×2 (14:34→21:03)
--- NOTE | 2025-01-31 14:38 | PD.IDPROG ---
Subjective Subjective Interval history: asked to see again due to drainage from wounds. surgery eval neg. Exam Vital Signs Temp Pulse Resp BP Pulse Ox O2 Del Method O2 Flow Rate 97.9 F 102 H 20 109/73 98 Room Air 2 01/31/25 12:00 01/31/25 14:34 01/31/25 12:00 01/31/25 14:34 01/31/25 12:00 01/31/25 12:00 01/27/25 12:00 FiO2 30 01/27/25 12:00 Narrative Exam abd benign. pt alert. wbc not c/w pt appearance. Objective - Internal Medicine Labs 01/31/25 05:13 01/31/25 05:13 Labs: Laboratory Results - last 24 hr 01/31/25 05:13 WBC 17.8 H RBC 3.24 L Hgb 9.7 L Hct 30.2 L MCV 93 MCH 29.9 MCHC 32.1 RDW Std Deviation 56.4 H Plt Count 777 H D Neut % (Auto) 69 Lymph % (Auto) 12 [place] % (Auto) 4 Eos % (Auto) 5 Baso % (Auto) 1 Neut # (Auto) 12.3 H Lymph # (Auto) 2.2 [place] # (Auto) 0.7 Eos # (Auto) 0.9 H Baso # (Auto) 0.1 Immature Gran # (Auto) 1.58 H Absolute Nucleated RBC 0.00 Immature Gran % 9 H Nucleated RBC % 0 Sodium 137 Potassium 3.5 Chloride 100 Carbon Dioxide 30.8 Anion Gap 6 L BUN 10 Creatinine 0.4 L Estim Creat Clear Calc 111.5 eGFR > 60 BUN/Creatinine Ratio 25 H Glucose 105 Calculated Osmolality 272 L Calcium 8.5 Corrected Calcium 9.2 Total Bilirubin 0.3 AST 21 ALT 23 Alkaline Phosphatase 191 H Total Protein 5.5 L Albumin 3.1 L Globulin 2.4 Albumin/Globulin Ratio 1.3 Random Vancomycin 10.5 ABG Interpretation ABG results: 01/12/25 01/12/25 01/12/25 02:43 04:40 07:51 ABG pH 7.51 H 7.39 D 7.40 ABG pCO2 29 L 41 D 40 ABG pO2 235 H 145 H D 152 H ABG HCO3 23 25 25 ABG O2 Saturation 100 H 99 H 99 H ABG Base Excess 0 0 0 VBG pH VBG pCO2 VBG pO2 VBG Base Excess 02/15/25 02/17/25 04:17 11:51 ABG pH 7.32 L ABG pCO2 43 ABG pO2 137 H ABG HCO3 22 ABG O2 Saturation 99 H ABG Base Excess -4 L VBG pH 7.65 VBG pCO2 37 VBG pO2 75 H VBG Base Excess 18 H Assessment & Plan A&P Narrative relative leucocytosis in pt who had received steroids. Hospitalist team checks it daily, that does not make it a better test. if you want her on po rx at home. that is a choice. suggest po keflex 500 qid or 1000 tid and flagyl 500 tid x 5d more if you choose that rx she needs to take her IBD rx daily ordered cortisol level as she was on prednisone before I can not f/u her case as an outpt. please do not suggest that I see her. f/u with outpt primary. I will see again prn Time Spent With Patient Time: Total time spent is greater than 50% in coordination of care (as documented) at patient's floor/unit and/or counseling patient:
--- NOTE | 2025-01-31 14:41 | PC.SS ---
Follow up note: Patient has been accepted at [facility] with insurance approval. However, SS spoke to physician team who feels patient may need a more advanced placement such as LTAC. SS sent out inquiry to LTAC facilities and [facility] is considering patient. Patient is s/p colectomy. Patient is max assist with PT. Patient is on pain medication for pain management. ID has been consulted.
--- NOTE | 2025-01-31 21:13 | ESPR_ITS ---
Documentation for date of: 01/31/25 Subjective Subjective Interval history: Clinically improving Physical therapy ongoing Some improvement in the p.o. intake Exam Vital Signs Temp Pulse Resp BP Pulse Ox O2 Del Method O2 Flow Rate 96.8 F 106 H 18 113/66 98 Room Air 2 01/31/25 20:00 01/31/25 21:03 01/31/25 20:00 01/31/25 21:03 01/31/25 20:00 01/31/25 20:00 01/27/25 12:00 FiO2 30 01/27/25 12:00 Objective Labs 01/31/25 05:13 01/31/25 05:13 Labs: Laboratory Results - last 24 hr 01/31/25 05:13 WBC 17.8 H RBC 3.24 L Hgb 9.7 L Hct 30.2 L MCV 93 MCH 29.9 MCHC 32.1 RDW Std Deviation 56.4 H Plt Count 777 H D Neut % (Auto) 69 Lymph % (Auto) 12 [place] % (Auto) 4 Eos % (Auto) 5 Baso % (Auto) 1 Neut # (Auto) 12.3 H Lymph # (Auto) 2.2 [place] # (Auto) 0.7 Eos # (Auto) 0.9 H Baso # (Auto) 0.1 Immature Gran # (Auto) 1.58 H Absolute Nucleated RBC 0.00 Immature Gran % 9 H Nucleated RBC % 0 Sodium 137 Potassium 3.5 Chloride 100 Carbon Dioxide 30.8 Anion Gap 6 L BUN 10 Creatinine 0.4 L Estim Creat Clear Calc 111.5 eGFR > 60 BUN/Creatinine Ratio 25 H Glucose 105 Calculated Osmolality 272 L Calcium 8.5 Corrected Calcium 9.2 Total Bilirubin 0.3 AST 21 ALT 23 Alkaline Phosphatase 191 H Total Protein 5.5 L Albumin 3.1 L Globulin 2.4 Albumin/Globulin Ratio 1.3 Random Vancomycin 10.5 Impressions Impression: Status post exploratory laparotomy small bowel anastomosis and ileostomy Leukocytosis is not a major concern for me Continue current management ABG Interpretation ABG results: 01/12/25 01/12/25 01/12/25 02:43 04:40 07:51 ABG pH 7.51 H 7.39 D 7.40 ABG pCO2 29 L 41 D 40 ABG pO2 235 H 145 H D 152 H ABG HCO3 23 25 25 ABG O2 Saturation 100 H 99 H 99 H ABG Base Excess 0 0 0 VBG pH VBG pCO2 VBG pO2 VBG Base Excess 01/13/25 01/15/25 04:17 11:51 ABG pH 7.32 L ABG pCO2 43 ABG pO2 137 H ABG HCO3 22 ABG O2 Saturation 99 H ABG Base Excess -4 L VBG pH 7.65 VBG pCO2 37 VBG pO2 75 H VBG Base Excess 18 H Assessment & Plan A&P Narrative relative leucocytosis in pt who had received steroids. Hospitalist team checks it daily, that does not make it a better test. if you want her on po rx at home. that is a choice. suggest po keflex 500 qid or 1000 tid and flagyl 500 tid x 5d more if you choose that rx she needs to take her IBD rx daily ordered cortisol level as she was on prednisone before I can not f/u her case as an outpt. please do not suggest that I see her. f/u with outpt primary. I will see again prn Time Spent With Patient Time: Total time spent is greater than 50% in coordination of care (as documented) at patient's floor/unit and/or counseling patient:
[2025-02-01] VITALS (9 sets, daily range): BP systolic 101–125; BP diastolic 64–85; PULSE 78–120; RESP 12–21; TEMP 35.9–36.7; O2SAT 96–98; BMI 20.9
[2025-02-01] MEDS: HYDROmorphone INJ 2 MG/ML VIAL 0.25 MG IVP ×3 (02:08→23:49)
[2025-02-01] MEDS: MIDODRINE 5 MG TABLET 10 MG PO (05:26)
[2025-02-01] MEDS: NYSTATIN SUSP 5 ML UDC PO ×2 (05:26→21:40)
[2025-02-01] MEDS: SIMETHICONE 80 MG CHEW PO ×2 (05:27→23:49)
[2025-02-01 05:57] LABS: Basophils # (Auto) 0.2 Thou/mm3 (0.0-0.2); Basophils % (Auto) 1 % (0-2.5); Eosinophils % (Auto) 6 % (0-10); Hematocrit 30.6 % (36.0-46.0); Hemoglobin 9.8 g/dL (12.0-16.0); Immature Granulocytes % (Auto) 11 % (0-0); Immature Granulocytes Auto 1.99 Thou/mm3 (0.00-0.00); Lymphocytes # (Auto) 2.7 Thou/mm3 (1.0-4.8); Lymphocytes % (Auto) 15 % (10-50); Mean Corpuscular Hemoglobin 29.8 pg (25.0-35.0); Mean Corpuscular Volume 93 fL (80-100); Monocytes # (Auto) 0.9 Thou/mm3 (0.0-0.8); Monocytes % (Auto) 5 % (0-12); Neutrophils # (Auto) 10.8 Thou/mm3 (1.8-7.7); Neutrophils % (Auto) 62 % (37-80); Nucleated Red Blood Cell % 0 /100 WBC (0); Platelet Count 841 Thou/mm3 (140-440); RDW Standard Deviation 57.9 fL (36.4-46.3); Red Blood Count 3.29 Miln/mm3 (4.00-5.20); White Blood Count 17.5 Thou/mm3 (3.6-11.0)
[2025-02-01 06:20] LABS: Alanine Aminotransferase 25 U/L (10-49); Albumin, Serum 3.1 gm/dL (3.4-4.8); Albumin/Globulin Ratio 1.2 (1.2-2.2); Alkaline Phosphatase 209 U/L (46-116); Anion Gap 7 (7-16); Aspartate Amino Transferase 19 U/L (0-34); BUN/Creatinine Ratio 30 Ratio (12-20); Bilirubin,Total 0.4 mg/dL (0.3-1.2); Blood Urea Nitrogen 9 mg/dL (9-23); Calcium 8.6 mg/dL (8.3-10.6); Calcium (Corrected) 9.3 mg/dL (8.5-10.1); Carbon Dioxide 31.3 mMol/L (20.0-31.0); Chloride 98 mMol/L (98-107); Creatinine (Component) 0.3 mg/dL (0.6-1.3); Estimated Creatinine Clearance 148.6 mL/min (>60); Globulin 2.5 gm/dL (2.3-3.5); Glucose 91 mg/dL (74-106); Magnesium 1.5 mg/dL (1.6-2.6); Osmolality,Calculated 270 (275-295); Phosphorous 2.7 mg/dL (2.4-5.1); Potassium 3.5 mMol/L (3.4-5.1); Sodium 136 mMol/L (136-145); Total Protein 5.6 gm/dL (5.7-8.2); eGFR > 60 See Note
--- NOTE | 2025-02-01 09:04 | PC.SS ---
Follow up note; SS received a call from Nuno @ [facility] who states they can accept patient. They'd like to work on prior authorization. SS will speak with patient today. Patient to work with PT today as well. Possible bed opening at [place] [facility]
[2025-02-01] MEDS: ASCORBIC ACID 250 MG TABLET 500 MG PO ×2 (10:02→21:39)
[2025-02-01] MEDS: ZINC SULFATE 220 MG CAPSULE PO (10:03)
[2025-02-01] MEDS: Magnesium Sulfate 4 GM Ivpb 4 GM/50 ML BAG IV (10:03)
[2025-02-01 11:26] LABS: Path Review Blood Smear Sent to Pathologist
[2025-02-01] MEDS: HYDROcodone/APAP 7.5/325 TABLET 1 TAB PO ×2 (13:05→19:00)
--- NOTE | 2025-02-01 13:25 | PD.SURPROG ---
Documentation for date of: 02/01/25 Subjective Subjective Narrative: Patient is seen and examined in MedSurg unit. Clinically she is slowly improving. She is tolerating diet however she is not eating much and she is not ambulating Exam Vital Signs Temp Pulse Resp BP Pulse Ox O2 Del Method O2 Flow Rate 96.8 F 103 H 16 117/74 98 Room Air 2 02/01/25 12:00 02/01/25 12:00 02/01/25 12:00 02/01/25 12:00 02/01/25 12:00 02/01/25 12:01/27/25 12:00 FiO2 30 01/27/25 12:00 Constitutional Constitutional: no acute distress Routine Abdominal Exam Comments: Abdomen is soft and nondistended. Ileostomy is functioning. She continues to have purulent drainage from the inferior aspect of the incision without erythema or cellulitis. Remainder of the incision is clean, dry and intact Assessment & Plan Assessment Additional comments: Status post subtotal colectomy with en bloc small bowel resection, cholecystectomy and end ileostomy Plan If she continues to have purulent drainage from the incision we may have to repeat CT scan of abdomen and pelvis with IV contrast Procedures Procedures Exploratory laparotomy, small bowel anastomosis with end ileostomy Cholecystectomy Abdominal washout and closure
[2025-02-01] MEDS: POTASSIUM CHLORIDE 20 mEq TABCR 40 MEQ PO (14:45)
--- NOTE | 2025-02-01 15:45 | PC.SS ---
SS spoke to [facility] who stated unit pt would be on is Telemetry. Bakari also stated auth was obtained. SS went to meet with pt at bedside and her sister Lacey to discuss LTAC placement vs SNF. Per pt she has not discussed placement with family. SS inquired if she wanted me to update Lacey on options, pt stated yes. SS explained the reason for LTAC placement and pain management requirement. SS explained if pt can not decrease on the amount of pain meds she is on she will have to go to LTAC where she can be better managed as SNF would not be able to manage her pain via IV. SS explained we have auth and she can go to LTAC if shes in agreement, per pt she would like to speak to her other sisters first. SS updated Nuno with [facility] who stated auth is good until 02/11/25. SS also updated Dr. Varghese with Team C.
--- NOTE | 2025-02-01 16:03 | ESPR_ITS ---
<Statement entered by Graciela Harris MD - 02/02/25 17:10> Patient seen and examined at bedside. No acute overnight events reported. Had a long discussion with patient and patient's family regarding LTAC versus SNF. Patient is leaning towards more LTAC as patient will have more supervised care. After shared decision making, patient will try weaning of IV pain meds and will continue with p.o. pain meds at this time. Continue with wound healing medications as well as encouraging ambulation. Will DC her antibiotics and antifungal. Anticipate discharge status post LTAC authorization within a few days. I discussed with and supervised the biomedical engineering internship physician who took care of this patient. I personally saw and examined the patient and discussed the assessment and plan with the entire medicine team, including my attending Dr. Recinos, I agree with most of the assessment and plan as documented below Graciela Harris M.D. PGY-2 Disclaimer: Despite multiple revisions, due to the dictation software being used, the document bellow may not be free of grammatical errors including phonetic/typographic errors. However, this does not deter from our commitment to providing health care in the patient's best interest in mind. Documentation for date of: 02/01/25 Subjective Subjective Interval history: No overnight events. Patient seen examined bedside, resting comfortably. Patient continues to do well, reports small appetite but improving, tolerating oral intake well. Mild abdominal pain. Patient denies fever, chills, shortness of breath, nausea, vomiting. Discussed long-term care with patient, specifically LTAC versus SNF, patient wished to discussed more with family before coming to a decision. Will attempt to wean patient off the pain medication. DC'd antibiotics. Potential discharge within the next few days. Exam Vital Signs Temp Pulse Resp BP Pulse Ox O2 Del Method O2 Flow Rate 96.8 F 103 H 16 117/74 98 Room Air 2 02/01/25 12:00 02/01/25 12:00 02/01/25 12:02/01/25 12:00 02/01/25 12:00 02/01/25 12:00 01/27/25 12:00 FiO2 30 01/27/25 12:00 Narrative Exam PE: Gen: Well-developed and well-nourished. Appears mildly ill. HEENT: NCAT, PERRLA, EOMI, MMM, anicteric conjunctivae. CVS: normal S1 and S2. RRR. No M/R/G. Resp: CTA B/L. No rhonchi, rales, crackles or wheezing. Abd: soft, non-distended. Ileostomy functioning well. Patient tender to mild palpation. Incision site bandage, with some drainage at the inferior aspect. MSK: Good ROM in BUE & BLE. No edema or rash. Neuro: CN II-XII grossly intact. Strength 5/5 in BUE & BLE. Alert and oriented x3. Objective Labs 02/02/25 05:10 02/02/25 05:10 Labs: Laboratory Results - last 24 hr 02/01/25 05:24 WBC 17.5 H RBC 3.29 L Hgb 9.8 L Hct 30.6 L MCV 93 MCH 29.8 MCHC 32.0 RDW Std Deviation 57.9 H Plt Count 841 H D Neut % (Auto) 62 Lymph % (Auto) 15 [place] % (Auto) 5 Eos % (Auto) 6 Baso % (Auto) 1 Neut # (Auto) 10.8 H Lymph # (Auto) 2.7 [place] # (Auto) 0.9 H Eos # (Auto) 1.0 H Baso # (Auto) 0.2 Immature Gran # (Auto) 1.99 H Absolute Nucleated RBC 0.00 Immature Gran % 11 H Nucleated RBC % 0 Smear Path Review Sent to Pathologist Sodium 136 Potassium 3.5 Chloride 98 Carbon Dioxide 31.3 H Anion Gap 7 BUN 9 Creatinine 0.3 L Estim Creat Clear Calc 148.6 eGFR > 60 BUN/Creatinine Ratio 30 H Glucose 91 Calculated Osmolality 270 L Calcium 8.6 Corrected Calcium 9.3 Phosphorus 2.7 Magnesium 1.5 L Total Bilirubin 0.4 AST 19 ALT 25 Alkaline Phosphatase 209 H Total Protein 5.6 L Albumin 3.1 L Globulin 2.5 Albumin/Globulin Ratio 1.2 ABG Interpretation ABG results: 01/12/25 01/12/25 01/12/25 02:43 04:40 07:51 ABG pH 7.51 H 7.39 D 7.40 ABG pCO2 29 L 41 D 40 ABG pO2 235 H 145 H D 152 H ABG HCO3 23 25 25 ABG O2 Saturation 100 H 99 H 99 H ABG Base Excess 0 0 0 VBG pH VBG pCO2 VBG pO2 VBG Base Excess 01/13/25 01/15/25 04:17 11:51 ABG pH 7.32 L ABG pCO2 43 ABG pO2 137 H ABG HCO3 22 ABG O2 Saturation 99 H ABG Base Excess -4 L VBG pH 7.65 VBG pCO2 37 VBG pO2 75 H VBG Base Excess 18 H Quality Measures Quality Measures VTE prophylaxis Assessment & Plan Assessment Current Active Medications: Generic Name Dose Route Start Last Admin Trade Name Freq PRN Reason Stop Dose Admin Acetaminophen 650 mg 01/27/25 11:50 01/28/25 11:50 Acetaminophen 325 Mg Tablet PO 02/26/25 11:49 650 mg Q6HR PRN Administration Fever >100.4 or pain 1-3 Hydrocodone Bitart/Acetaminophen 1 tab 02/01/25 12:23 02/01/25 13:05 Hydrocodone/Apap 7.5/325 Tablet PO 02/06/25 12:22 1 tab Q6HR PRN Administration PAIN SCALE 4-10(Mod-Sev Albuterol/Ipratropium 3 ml 01/16/25 11:56 01/16/25 12:04 Albuterol/Ipratropium (Duoneb) Rt Bambi 3 Ml Nebu INH 02/15/25 14:59 3 ml Q4HRRT PRN Administration SHORTNESS OF BREATH OR WHEEZE Ascorbic Acid 500 mg 01/18/25 10:30 02/01/25 10:02 Ascorbic Acid 250 Mg Tablet PO 02/17/25 10:29 500 mg BID CAMERON Administration Dextrose 50 ml 01/13/25 06:35 Dextrose 50%-Water Inj 50 Ml Syringe IV 02/12/25 06:34 Q15MIN PRN BG <50 OR BG <70 & pt unresponsive Glucagon 1 mg 01/13/25 06:35 Glucagon Inj 1 Mg Vial IM Q15MIN PRN BG <70, and no IV access Hydromorphone HCl 0.25 mg 01/31/25 13:30 02/01/25 06:18 Hydromorphone Inj 2 Mg/Ml Vial IVP 02/05/25 13:29 0.25 mg Q4HR PRN Administration PAIN 7-10 Midodrine 5 mg 02/01/25 22:00 Midodrine 5 Mg Tablet PO 03/03/25 21:59 TID CAMERON Nystatin 5 ml 01/28/25 17:00 02/01/25 13:25 Nystatin Susp 5 Ml Udc PO 02/04/25 16:59 Not Given QID CAMERON Phenol/Menthol 0 ml 01/28/25 09:34 Phenol/Na Phenolate (Chloraseptic) Abeytas 180 Ml Btl PO 02/27/25 09:33 Q6HR PRN SORE THROAT Simethicone 80 mg 01/25/25 19:15 02/01/25 13:26 Simethicone 80 Mg Chew PO 02/24/25 19:14 Not Given Q6HR CAMERON Zinc Sulfate 220 mg 01/18/25 10:30 02/01/25 10:03 Zinc Sulfate 220 Mg Capsule PO 02/17/25 10:29 220 mg QDAY CAMERON Administration Plan 59-year-old female with past medical history of inflammatory bowel disease/ulcerative colitis on chronic steroids that was recently discharged on 12/21/2024 for IBS flareup and admitted on 01/11 for pneumoperitoneum requiring emergent ex-lap. Found to have multiple areas of small and large bowel perforation with feculent peritonitis as well as coloenteric fistulas. Underwent subtotal colectomy on 01/11 and subsequently admitted to the ICU for further management. patient was downgraded to medical floors on 01/15 for furtehr management. #Acute abdomen 2/2 Severe Peritonitis - resolved #POD#13 s/p subtotal colectomy with en-bloc partial small bowel resection #POD#10 s/p Re-exploration, SB anastomosis, cholecystectomy and end ileostomy in the setting of #Inflammatory Bowel Disease #Ulcerative Colitis, fistulizing likely distributive in setting of feculent peritonitis secondary to enterocutaneous fistulas secondary to IBD UC vs. Crohn's CT on admission: pneumoperitoneum and went to OR emergently. Found to have multiple bowel perforations in small and large intestine causing feculent peritonitis. 01/11: First operation with bowel resection and second 01/12: Blood cultures : Negative 01/14: small bowel anastomosis with end ileostomy, cholecystectomy, and abdominal washout with closure. She was extubated in PACU and then returned to ICU 01/16: Continue with Ice chips (ok with Surgeon), pain control, will wean down off dilaudid pump. Will need to wean off TPN at some point 01/18: Started on clear liquid diet, tolerating well. Will work on weaning off [employer] and TPN. 01/19: Diet advanced, no nausea/vomiting, minimal pain attributed to dairy intake. Will wean off [employer] and TPN 01/20: Diet has been advanced to dysphagia [address] Crooks. Patient is tolerating current diet, no abdominal pain, nausea or vomiting. 01/21: Tolerating dysphagia 2 diet well and drinking Ensure in between meals. Ileostomy is functioning well. Abdo pain occurs 30-40 mins after meals but improves with IV pain medicines. 01/22: She still reports some pain, before and after meals but is tolerating feeding without nausea or vomiting. Pain management on Swoope 01/23: Reports that she is doing significantly better, had a decent sized breakfast this morning, tolerated well-no abdominal pain right after, no nausea or vomiting. On examination, abdomen is slightly tender. Ileostomy functioning well. Labs reviewed, WBC uptrended to 25. Per ID recs, will continue IV Unasyn. Patient working with physical therapy, progress noted. Will slowly wean off IV pain medications 01/24: Patient is doing well on her diet, no nausea or vomiting, pain is improving. She still little tachycardic, possibly pain related. Labs reviewed, WBC downtrending at 19 today and hemoglobin dropped to 8.7 but patient has no bleeding noted. Evaluated by ID today, will complete IV Unasyn. 01/25: pain is worse. IV dilaudid increased back to 1mg. CT abdomen/pelvis w/ contrast ordered to evaluate abdominal tenderness and worsening clinical status. WBC downtrending 25 -> 19 -> 15, patient remains afebrile. 01/26: Had a repeat CT abdomen done which showed a 4 mm stone in the common hepatic duct and 3 mm in the common bile duct. Evaluated by GI Dr. Gamboa who does not need recommended additional interventions at this time as LFTs are normal. At bedside today, patient has no complaints except minimal pain, still tolerating diet. She did not ambulate with physical therapy yesterday, recommended for PT today 01/27: Patient had rapid response and sepsis alert was called, 1.5 L NS was given, antibiotic coverage broadened to vancomycin and Zosyn, pain regimen adjusted. Patient BP has been well, received 1 L bolus lactated Ringer's. HIDA scan negative for bile leak. Had more discussions with patient regarding LTAC versus SNF, patient was discussed more family before coming to final decision. Patient agreed to attempt to wean off IV pain medications. Antibiotics discontinued following ruminations of surgery and ID. -Dr Crooks following, appreciate recommendations -Swoope 7.51 tab p.o. every 6 hours as needed for pain -Dilaudid 0.25 every 4 hours as needed for severe pain, ON HOLD -GI to evaluate when to resume mesalamine -Physical therapy to continue working with the patient. -ID consulted appreciate recommendations -Midodrine 5 mg p.o. 3 times daily -Discussed discharging to LTAC for continued rehab with patient #Protein Calorie Malnutrition-improving #Hypokalemia - recurrent #Hypomagnesemia The patient has had persistently low albumin level since prior to surgery. Likely due to decreased intake as well as losses Dietary recommendations appreciated 01/23-total protein 5.3, albumin 3.2 01/26/2025: Potassium- 3.1, Mg- 1.7 IV albumin 25 g x1 given -Continue oral diet -Replete electrolytes as needed #Dyspnea- resolved #Cough- resolved -Incentive spirometry at bedside -Chest physiotherapy qD #Reactive Leukocytosis-recurrent. WBC : 29 -> 24 -> 22 -> 23.9 Likely secondary to steroid use WBC down trended to 8.9. Patient has had elevations WBCs without fever or any other symptoms. Patient was on steroids at some point however discontinued Antibiotics discontinued, patient remains afebrile. #Normocytic anemia - resolved Presented with hemoglobin of 7.8 that improved to 9.2 after 4 units PRBC, and is also status-post 1 unit FFP 01/15 : Hb 12.2 , wnl -Stable, continue to monitor Disposition: Med/tele. DVT prophylaxis: Lovenox GI prophylaxis: None Diet: Regular CODE STATUS: Full code Plan of care discussed with senior resident Dr. Harris PGY?[address] Recinos. Ridge Hackett MD PGY?1 Attending Provider Attestation/Addendum Karyna Estes, , attest that I was physically present for the johnson portions of the service and evaluated the patient with the resident and I reviewed and discussed the case with the resident and agree with the resident's findings and plans of care as documented above Patient seen and evaluated this AM. Patient states she is doing well. Patient was tearful as social secretary was explaining to the patient about LTAC versus SNF. Patient is still requiring frequent wound changes due to drainage from wound and IV pain medications. Sister states she would like to think about her options, but understands that there is higher level of care at LTAC vs SNF. However, distance is the only factor. Will continue with tapering off IV pain meds and increase PO norco.
--- NOTE | 2025-02-01 21:07 | ESPR_ITS ---
Documentation for date of: 02/01/25 Subjective Subjective Interval history: Downtrending WBC count to 17.5 hemoglobin hematocrit 9.8 and 30.6 pro time INR 1.3 Exam Vital Signs Temp Pulse Resp BP Pulse Ox O2 Del Method O2 Flow Rate 97.4 F 120 H 21 H 125/85 H 96 Room Air 2 02/01/25 20:00 02/01/25 20:00 02/01/25 20:00 02/01/25 20:00 02/01/25 20:00 02/01/25 20:00 01/27/25 12:00 FiO2 30 01/27/25 12:00 Objective Labs 02/01/25 05:24 02/01/25 05:24 Labs: Laboratory Results - last 24 hr 02/01/25 05:24 WBC 17.5 H RBC 3.29 L Hgb 9.8 L Hct 30.6 L MCV 93 MCH 29.8 MCHC 32.0 RDW Std Deviation 57.9 H Plt Count 841 H D Neut % (Auto) 62 Lymph % (Auto) 15 [place] % (Auto) 5 Eos % (Auto) 6 Baso % (Auto) 1 Neut # (Auto) 10.8 H Lymph # (Auto) 2.7 [place] # (Auto) 0.9 H Eos # (Auto) 1.0 H Baso # (Auto) 0.2 Immature Gran # (Auto) 1.99 H Absolute Nucleated RBC 0.00 Immature Gran % 11 H Nucleated RBC % 0 Smear Path Review Sent to Pathologist Sodium 136 Potassium 3.5 Chloride 98 Carbon Dioxide 31.3 H Anion Gap 7 BUN 9 Creatinine 0.3 L Estim Creat Clear Calc 148.6 eGFR > 60 BUN/Creatinine Ratio 30 H Glucose 91 Calculated Osmolality 270 L Calcium 8.6 Corrected Calcium 9.3 Phosphorus 2.7 Magnesium 1.5 L Total Bilirubin 0.4 AST 19 ALT 25 Alkaline Phosphatase 209 H Total Protein 5.6 L Albumin 3.1 L Globulin 2.5 Albumin/Globulin Ratio 1.2 Impressions Impression: Status post subtotal colectomy Tolerating diet but not eating well physical therapy in progress ABG Interpretation ABG results: 01/12/25 01/12/25 01/12/25 02:43 04:40 07:51 ABG pH 7.51 H 7.39 D 7.40 ABG pCO2 29 L 41 D 40 ABG pO2 235 H 145 H D 152 H ABG HCO3 23 25 25 ABG O2 Saturation 100 H 99 H 99 H ABG Base Excess 0 0 0 VBG pH VBG pCO2 VBG pO2 VBG Base Excess 01/13/25 01/15/25 04:17 11:51 ABG pH 7.32 L ABG pCO2 43 ABG pO2 137 H ABG HCO3 22 ABG O2 Saturation 99 H ABG Base Excess -4 L VBG pH 7.65 VBG pCO2 37 VBG pO2 75 H VBG Base Excess 18 H Assessment & Plan A&P Narrative relative leucocytosis in pt who had received steroids. Hospitalist team checks it daily, that does not make it a better test. if you want her on po rx at home. that is a choice. suggest po keflex 500 qid or 1000 tid and flagyl 500 tid x 5d more if you choose that rx she needs to take her IBD rx daily ordered cortisol level as she was on prednisone before I can not f/u her case as an outpt. please do not suggest that I see her. f/u with outpt primary. I will see again prn Time Spent With Patient Time: Total time spent is greater than 50% in coordination of care (as documented) at patient's floor/unit and/or counseling patient:
[2025-02-02] VITALS (13 sets, daily range): BP systolic 106–121; BP diastolic 73–81; PULSE 103–129; RESP 17–24; TEMP 36.1–36.7; O2SAT 92–98; BMI 20.8
[2025-02-02] MEDS: HYDROcodone/APAP 7.5/325 TABLET 1 TAB PO (05:35)
[2025-02-02] MEDS: MIDODRINE 5 MG TABLET PO ×3 (05:35→21:30)
[2025-02-02] MEDS: SIMETHICONE 80 MG CHEW PO ×4 (05:35→23:32)
[2025-02-02] MEDS: NYSTATIN SUSP 5 ML UDC PO ×4 (05:35→21:30)
[2025-02-02 05:45] LABS: Basophils # (Auto) 0.1 Thou/mm3 (0.0-0.2); Basophils % (Auto) 1 % (0-2.5); Eosinophils # (Auto) 1.7 Thou/mm3 (0.0-0.5); Eosinophils % (Auto) 10 % (0-10); Hematocrit 32.4 % (36.0-46.0); Hemoglobin 10.3 g/dL (12.0-16.0); Immature Granulocytes % (Auto) 10 % (0-0); Lymphocytes # (Auto) 2.3 Thou/mm3 (1.0-4.8); Lymphocytes % (Auto) 14 % (10-50); Mean Corpuscular HGB Conc 31.8 g/dl (31.0-37.0); Mean Corpuscular Hemoglobin 29.5 pg (25.0-35.0); Mean Corpuscular Volume 93 fL (80-100); Monocytes # (Auto) 0.9 Thou/mm3 (0.0-0.8); Monocytes % (Auto) 5 % (0-12); Neutrophils # (Auto) 10.3 Thou/mm3 (1.8-7.7); Neutrophils % (Auto) 61 % (37-80); Nucleated Red Blood Cell % 0 /100 WBC (0); Platelet Count 859 Thou/mm3 (140-440); RDW Standard Deviation 57.4 fL (36.4-46.3); Red Blood Count 3.49 Miln/mm3 (4.00-5.20); White Blood Count 16.9 Thou/mm3 (3.6-11.0)
[2025-02-02 06:10] LABS: Alanine Aminotransferase 24 U/L (10-49); Albumin, Serum 3.1 gm/dL (3.4-4.8); Albumin/Globulin Ratio 1.1 (1.2-2.2); Alkaline Phosphatase 223 U/L (46-116); Anion Gap 7 (7-16); Aspartate Amino Transferase 23 U/L (0-34); BUN/Creatinine Ratio 23 Ratio (12-20); Bilirubin,Total 0.4 mg/dL (0.3-1.2); Blood Urea Nitrogen 7 mg/dL (9-23); Calcium 8.4 mg/dL (8.3-10.6); Calcium (Corrected) 9.1 mg/dL (8.5-10.1); Chloride 98 mMol/L (98-107); Creatinine (Component) 0.3 mg/dL (0.6-1.3); Estimated Creatinine Clearance 148.6 mL/min (>60); Globulin 2.7 gm/dL (2.3-3.5); Glucose 96 mg/dL (74-106); Magnesium 2.2 mg/dL (1.6-2.6); Osmolality,Calculated 268 (275-295); Phosphorous 2.8 mg/dL (2.4-5.1); Potassium 3.1 mMol/L (3.4-5.1); Sodium 135 mMol/L (136-145); Total Protein 5.8 gm/dL (5.7-8.2); eGFR > 60 See Note
[2025-02-02] MEDS: ASCORBIC ACID 250 MG TABLET 500 MG PO (08:52)
[2025-02-02] MEDS: ZINC SULFATE 220 MG CAPSULE PO (08:52)
[2025-02-02] MEDS: POTASSIUM CHL 10 mEq IVPB 10 MEQ/100 ML BAG 100 MEQ IV ×2 (08:53→10:19)
--- NOTE | 2025-02-02 09:22 | PC.SS ---
SS was informed by XIMENA Brown that pt sister requested to send LTAC referral to [facility] ([facility]) [id number] [address]. SS updated referral via ADRIANA.
--- NOTE | 2025-02-02 12:17 | PD.SURPROG ---
Documentation for date of: 02/02/25 Subjective Subjective Narrative: Patient is seen and examined. She is resting comfortably. She complains of intermittent pain from her abdomen. She is not eating much of her diet and she is not willing to ambulate with physical therapy Exam Vital Signs Temp Pulse Resp BP Pulse Ox O2 Del Method O2 Flow Rate 98.1 F 103 H 20 106/81 97 Room Air 2 02/02/25 08:00 02/02/25 11:53 02/02/25 08:00 02/02/25 08:00 02/02/25 08:00 02/02/25 08:00 02/02/25 00:00 FiO2 30 02/02/25 00:00 Constitutional Constitutional: no acute distress Routine Abdominal Exam Comments: Abdomen is soft and nondistended. Ileostomy is functioning. Incision has some purulent drainage from the inferior aspect, slightly less than yesterday. Remainder of the incision is clean, dry and intact Assessment & Plan Assessment Additional comments: Status post subtotal colectomy with en bloc resection of small bowel, cholecystectomy, end ileostomy. WBC stable and patient has been afebrile Plan Continue diet as tolerated with Ensure supplements. Once again patient is encouraged to increase ambulation Procedures Procedures Exploratory laparotomy, small bowel anastomosis with end ileostomy Cholecystectomy Abdominal washout and closure
--- NOTE | 2025-02-02 12:19 | PC.SS ---
SS has been in contact via ADRIANA with Tasha Ny from [facility] in [place] they are willing to accept pt and attempt to obtain auth. SS went and spoke to pt and her two sisters Alyce and Azalia who have all agreed with cancelling auth for [facility] and attempting [facility] in [place]. SS called Bakari with [place] and updated him on pt choice for [place] [facility], per Bakari he will call and cancel auth. SS updated Tasha from [place] and Team C-.
[2025-02-02] MEDS: POTASSIUM CHLORIDE 20 mEq TABCR PO (12:58)
[2025-02-02] MEDS: HYDROmorphone INJ 2 MG/ML VIAL 0.25 MG IVP ×2 (13:00→19:32)
--- NOTE | 2025-02-02 13:27 | PC.SS ---
[facility]
--- NOTE | 2025-02-02 15:53 | ESPR_ITS ---
<Statement entered by Graciela Harris MD - 02/03/25 18:00> Patient seen and examined at bedside. Overnight, patient received IV Dilaudid for pain. Patient continues to require heavy use of pain meds for increased severity of pain. General surgery recommended and approved to continue the use of IV Dilaudid to help promote recovery, however ultimately patient needs to start ambulating more. Patient agrees with plan, and would like to go to an LTAC in [place] for further recovery. Patient will continue with IV Dilaudid for severe pain and p.o. Huttig for moderate pain. Will start ordering labs every other day. I discussed with and supervised the audit practice intern physician who took care of this patient. I personally saw and examined the patient and discussed the assessment and plan with the entire medicine team, including my attending Dr. Recinos, I agree with most of the assessment and plan as documented below Graciela Harris M.D. PGY-2 Disclaimer: Despite multiple revisions, due to the dictation software being used, the document bellow may not be free of grammatical errors including phonetic/typographic errors. However, this does not deter from our commitment to providing health care in the patient's best interest in mind. Documentation for date of: 02/02/25 Subjective Subjective Interval history: Patient was in pain requiring IV Dilaudid overnight. Patient seen and examined at bedside. Patient endorses abdominal pain interfering with appetite. Denies fever, chills, shortness of breath, chest pain. Discussed case with Dr. Crooks, he approved use of IV Dilaudid to promote recovery. DC'd Huttig, resumed Dilaudid. Will stagger lab draws. Exam Vital Signs Temp Pulse Resp BP Pulse Ox O2 Del Method O2 Flow Rate 97.4 F 109 H 18 119/80 96 Room Air 2 02/02/25 12:00 02/02/25 12:59 02/02/25 12:00 02/02/25 12:59 02/02/25 12:00 02/02/25 12:00 02/02/25 00:00 FiO2 30 02/02/25 00:00 Narrative Exam PE: Gen: Well-developed and well-nourished. Appears mildly ill, more energetic. HEENT: NCAT, PERRLA, EOMI, MMM, anicteric conjunctivae. CVS: normal S1 and S2. RRR. No M/R/G. Resp: CTA B/L. No rhonchi, rales, crackles or wheezing. Abd: soft, non-distended. Ileostomy functioning well. Patient tender to mild palpation. Incision site bandage, with some drainage at the inferior aspect. MSK: Good ROM in BUE & BLE. No edema or rash. Neuro: CN II-XII grossly intact. Strength 5/5 in BUE & BLE. Alert and oriented x3. Objective Labs 02/02/25 05:10 02/02/25 05:10 Labs: Laboratory Results - last 24 hr 02/02/25 05:10 WBC 16.9 H RBC 3.49 L Hgb 10.3 L Hct 32.4 L MCV 93 MCH 29.5 MCHC 31.8 RDW Std Deviation 57.4 H Plt Count 859 H Neut % (Auto) 61 Lymph % (Auto) 14 [place] % (Auto) 5 Eos % (Auto) 10 Baso % (Auto) 1 Neut # (Auto) 10.3 H Lymph # (Auto) 2.3 [place] # (Auto) 0.9 H Eos # (Auto) 1.7 H Baso # (Auto) 0.1 Immature Gran # (Auto) 1.60 H Absolute Nucleated RBC 0.00 Immature Gran % 10 H Nucleated RBC % 0 Sodium 135 L Potassium 3.1 L Chloride 98 Carbon Dioxide 30.0 Anion Gap 7 BUN 7 L Creatinine 0.3 L Estim Creat Clear Calc 148.6 eGFR > 60 BUN/Creatinine Ratio 23 H Glucose 96 Calculated Osmolality 268 L Calcium 8.4 Corrected Calcium 9.1 Phosphorus 2.8 Magnesium 2.2 Total Bilirubin 0.4 AST 23 ALT 24 Alkaline Phosphatase 223 H Total Protein 5.8 Albumin 3.1 L Globulin 2.7 Albumin/Globulin Ratio 1.1 L ABG Interpretation ABG results: 01/12/25 01/12/25 01/12/25 02:43 04:40 07:51 ABG pH 7.51 H 7.39 D 7.40 ABG pCO2 29 L 41 D 40 ABG pO2 235 H 145 H D 152 H ABG HCO3 23 25 25 ABG O2 Saturation 100 H 99 H 99 H ABG Base Excess 0 0 0 VBG pH VBG pCO2 VBG pO2 VBG Base Excess 01/13/25 01/15/25 04:17 11:51 ABG pH 7.32 L ABG pCO2 43 ABG pO2 137 H ABG HCO3 22 ABG O2 Saturation 99 H ABG Base Excess -4 L VBG pH 7.65 VBG pCO2 37 VBG pO2 75 H VBG Base Excess 18 H Quality Measures Quality Measures VTE prophylaxis Assessment & Plan Assessment Current Active Medications: Generic Name Dose Route Start Last Admin Trade Name Freq PRN Reason Stop Dose Admin Acetaminophen 650 mg 01/27/25 11:50 01/28/25 11:50 Acetaminophen 325 Mg Tablet PO 02/26/25 11:49 650 mg Q6HR PRN Administration Fever >100.4 or pain 1-3 Hydrocodone Bitart/Acetaminophen 1 tab 02/02/25 10:10 Hydrocodone/Apap 5/325 Tablet PO 02/07/25 10:09 Q6HR PRN PAIN 4-6 Albuterol/Ipratropium 3 ml 01/16/25 11:56 01/16/25 12:04 Albuterol/Ipratropium (Duoneb) Rt Bambi 3 Ml Nebu INH 02/15/25 14:59 3 ml Q4HRRT PRN Administration SHORTNESS OF BREATH OR WHEEZE Ascorbic Acid 500 mg 01/18/25 10:30 02/02/25 08:52 Ascorbic Acid 250 Mg Tablet PO 02/17/25 10:29 500 mg BID CAMERON Administration Dextrose 50 ml 01/13/25 06:35 Dextrose 50%-Water Inj 50 Ml Syringe IV 02/12/25 06:34 Q15MIN PRN BG <50 OR BG <70 & pt unresponsive Glucagon 1 mg 01/13/25 06:35 Glucagon Inj 1 Mg Vial IM Q15MIN PRN BG <70, and no IV access Hydromorphone HCl 0.25 mg 02/02/25 12:14 02/02/25 13:00 Hydromorphone Inj 2 Mg/Ml Vial IVP 02/07/25 10:08 0.25 mg Q8HR PRN Administration PAIN 7-10 Midodrine 5 mg 02/01/25 22:00 02/02/25 12:59 Midodrine 5 Mg Tablet PO 03/03/25 21:59 5 mg TID CAMERON Administration Nystatin 5 ml 01/28/25 17:00 02/02/25 12:58 Nystatin Susp 5 Ml Udc PO 02/04/25 16:59 5 ml QID CAMERON Administration Phenol/Menthol 0 ml 01/28/25 09:34 Phenol/Na Phenolate (Chloraseptic) [place] 180 Ml Btl PO 02/27/25 09:33 Q6HR PRN SORE THROAT Simethicone 80 mg 01/25/25 19:15 02/02/25 13:00 Simethicone 80 Mg Chew PO 02/24/25 19:14 80 mg Q6HR CAMERON Administration Zinc Sulfate 220 mg 01/18/25 10:30 02/02/25 08:52 Zinc Sulfate 220 Mg Capsule PO 02/17/25 10:29 220 mg QDAY CAMERON Administration Plan 59-year-old female with past medical history of inflammatory bowel disease/ulcerative colitis on chronic steroids that was recently discharged on 12/21/2024 for IBS flareup and admitted on 01/11 for pneumoperitoneum requiring emergent ex-lap. Found to have multiple areas of small and large bowel perforation with feculent peritonitis as well as coloenteric fistulas. Underwent subtotal colectomy on 01/11 and subsequently admitted to the ICU for further management. patient was downgraded to medical floors on 01/15 for furtehr management. #Acute abdomen 2/2 Severe Peritonitis - resolved #POD#13 s/p subtotal colectomy with en-bloc partial small bowel resection #POD#10 s/p Re-exploration, SB anastomosis, cholecystectomy and end ileostomy in the setting of #Inflammatory Bowel Disease #Ulcerative Colitis, fistulizing likely distributive in setting of feculent peritonitis secondary to enterocutaneous fistulas secondary to IBD UC vs. Crohn's CT on admission: pneumoperitoneum and went to OR emergently. Found to have multiple bowel perforations in small and large intestine causing feculent peritonitis. 01/11: First operation with bowel resection and second 01/12: Blood cultures : Negative 01/14: small bowel anastomosis with end ileostomy, cholecystectomy, and abdominal washout with closure. She was extubated in PACU and then returned to ICU 01/16: Continue with Ice chips (ok with Surgeon), pain control, will wean down off dilaudid pump. Will need to wean off TPN at some point 01/18: Started on clear liquid diet, tolerating well. Will work on weaning off SHIP CLE[employer]ER and TPN. 01/19: Diet advanced, no nausea/vomiting, minimal pain attributed to dairy intake. Will wean off SHIP CLEANER and TPN 01/20: Diet has been advanced to dysphagia [address] Crooks. Patient is tolerating current diet, no abdominal pain, nausea or vomiting. 01/21: Tolerating dysphagia 2 diet well and drinking Ensure in between meals. Ileostomy is functioning well. Abdo pain occurs 30-40 mins after meals but improves with IV pain medicines. 01/22: She still reports some pain, before and after meals but is tolerating feeding without nausea or vomiting. Pain management on Huttig 01/23: Reports that she is doing significantly better, had a decent sized breakfast this morning, tolerated well-no abdominal pain right after, no nausea or vomiting. On examination, abdomen is slightly tender. Ileostomy functioning well. Labs reviewed, WBC uptrended to 25. Per ID recs, will continue IV Unasyn. Patient working with physical therapy, progress noted. Will slowly wean off IV pain medications 01/24: Patient is doing well on her diet, no nausea or vomiting, pain is improving. She still little tachycardic, possibly pain related. Labs reviewed, WBC downtrending at 19 today and hemoglobin dropped to 8.7 but patient has no bleeding noted. Evaluated by ID today, will complete IV Unasyn. 01/25: pain is worse. IV dilaudid increased back to 1mg. CT abdomen/pelvis w/ contrast ordered to evaluate abdominal tenderness and worsening clinical status. WBC downtrending 25 -> 19 -> 15, patient remains afebrile. 01/26: Had a repeat CT abdomen done which showed a 4 mm stone in the common hepatic duct and 3 mm in the common bile duct. Evaluated by GI Dr. Gamboa who does not need recommended additional interventions at this time as LFTs are normal. At bedside today, patient has no complaints except minimal pain, still tolerating diet. She did not ambulate with physical therapy yesterday, recommended for PT today 01/27: Patient had rapid response and sepsis alert was called, 1.5 L NS was given, antibiotic coverage broadened to vancomycin and Zosyn, pain regimen adjusted. Patient BP has been well, received 1 L bolus lactated Ringer's. HIDA scan negative for bile leak. Had more discussions with patient regarding LTAC versus SNF, patient was discussed more family before coming to final decision. Patient agreed to attempt to wean off IV pain medications. Antibiotics discontinued following recommendations of surgery and ID. -Dr Crooks following, appreciate recommendations -Huttig 5 1 tab p.o. every 6 hours as needed for pain -Dilaudid 0.25 every 6 hours as needed for severe pain -GI to evaluate when to resume mesalamine -Physical therapy to continue working with the patient. -ID consulted appreciate recommendations -Midodrine 5 mg p.o. 3 times daily -Discussed discharging to LTAC for continued rehab with patient #Protein Calorie Malnutrition-improving #Hypokalemia - recurrent #Hypomagnesemia The patient has had persistently low albumin level since prior to surgery. Likely due to decreased intake as well as losses Dietary recommendations appreciated 01/23-total protein 5.3, albumin 3.2 01/26/2025: Potassium- 3.1, Mg- 1.7 IV albumin 25 g x1 given -Continue oral diet -Replete electrolytes as needed #Dyspnea- resolved #Cough- resolved -Incentive spirometry at bedside -Chest physiotherapy qD #Reactive Leukocytosis-recurrent. WBC : 29 -> 24 -> 22 -> 23.9 Likely secondary to steroid use WBC down trended to 8.9. Patient has had elevations WBCs without fever or any other symptoms. Patient was on steroids at some point however discontinued Antibiotics discontinued, patient remains afebrile. #Normocytic anemia - resolved Presented with hemoglobin of 7.8 that improved to 9.2 after 4 units PRBC, and is also status-post 1 unit FFP 01/15 : Hb 12.2 , wnl -Stable, continue to monitor Disposition: Med/tele. DVT prophylaxis: Lovenox GI prophylaxis: None Diet: Regular CODE STATUS: Full code Plan of care discussed with senior resident Dr. Harris PGY?[address] Recinos. Ridge Hackett MD PGY?1 Attending Provider Attestation/Addendum Meera, Karyna Recinos, DO, attest that I was physically present for the johnson portions of the service and evaluated the patient with the resident and I reviewed and discussed the case with the resident and agree with the resident's findings and plans of care as documented above Patient seen and evaluated this a.m. Patient is tearful and states that she had a rough night since she did not get enough Dilaudid. Explained to patient that she is getting minimal IV Dilaudid and that the Huttig is much stronger. She states that the Huttig does not help with her pain. Case was discussed with surgeon, okay with IV pain medicine and states that patient is cleared for discharge otherwise from his standpoint. Patient is agreeable to LTAC in [place], pending authorization at this time.
--- NOTE | 2025-02-02 17:33 | ESPR_ITS ---
Documentation for date of: 02/02/25 Subjective Subjective Interval history: Patient evaluated not eating much Exam Vital Signs Temp Pulse Resp BP Pulse Ox O2 Del Method O2 Flow Rate 97.4 F 109 H 18 119/80 96 Room Air 2 02/02/25 12:00 02/02/25 12:59 02/02/25 12:00 02/02/25 12:59 02/02/25 12:00 02/02/25 12:00 02/02/25 00:00 FiO2 30 02/02/25 00:00 Objective Labs 02/02/25 05:10 02/02/25 05:10 Labs: Laboratory Results - last 24 hr 02/02/25 05:10 WBC 16.9 H RBC 3.49 L Hgb 10.3 L Hct 32.4 L MCV 93 MCH 29.5 MCHC 31.8 RDW Std Deviation 57.4 H Plt Count 859 H Neut % (Auto) 61 Lymph % (Auto) 14 [place] % (Auto) 5 Eos % (Auto) 10 Baso % (Auto) 1 Neut # (Auto) 10.3 H Lymph # (Auto) 2.3 [place] # (Auto) 0.9 H Eos # (Auto) 1.7 H Baso # (Auto) 0.1 Immature Gran # (Auto) 1.60 H Absolute Nucleated RBC 0.00 Immature Gran % 10 H Nucleated RBC % 0 Sodium 135 L Potassium 3.1 L Chloride 98 Carbon Dioxide 30.0 Anion Gap 7 BUN 7 L Creatinine 0.3 L Estim Creat Clear Calc 148.6 eGFR > 60 BUN/Creatinine Ratio 23 H Glucose 96 Calculated Osmolality 268 L Calcium 8.4 Corrected Calcium 9.1 Phosphorus 2.8 Magnesium 2.2 Total Bilirubin 0.4 AST 23 ALT 24 Alkaline Phosphatase 223 H Total Protein 5.8 Albumin 3.1 L Globulin 2.7 Albumin/Globulin Ratio 1.1 L Impressions Impression: Status post subtotal colectomy exploratory laparotomy end ileostomy Major issues physical therapy and diet which patient is not very cooperative but working Will continue to work with her ABG Interpretation ABG results: 01/12/25 01/12/25 01/12/25 02:43 04:40 07:51 ABG pH 7.51 H 7.39 D 7.40 ABG pCO2 29 L 41 D 40 ABG pO2 235 H 145 H D 152 H ABG HCO3 23 25 25 ABG O2 Saturation 100 H 99 H 99 H ABG Base Excess 0 0 0 VBG pH VBG pCO2 VBG pO2 VBG Base Excess 01/13/25 01/15/25 04:17 11:51 ABG pH 7.32 L ABG pCO2 43 ABG pO2 137 H ABG HCO3 22 ABG O2 Saturation 99 H ABG Base Excess -4 L VBG pH 7.65 VBG pCO2 37 VBG pO2 75 H VBG Base Excess 18 H Assessment & Plan A&P Narrative relative leucocytosis in pt who had received steroids. Hospitalist team checks it daily, that does not make it a better test. if you want her on po rx at home. that is a choice. suggest po keflex 500 qid or 1000 tid and flagyl 500 tid x 5d more if you choose that rx she needs to take her IBD rx daily ordered cortisol level as she was on prednisone before I can not f/u her case as an outpt. please do not suggest that I see her. f/u with outpt primary. I will see again prn Time Spent With Patient Time: Total time spent is greater than 50% in coordination of care (as documented) at patient's floor/unit and/or counseling patient:
[2025-02-02] MEDS: ACETAMINOPHEN 325 MG TABLET 650 MG PO (21:26)
[2025-02-03] VITALS (11 sets, daily range): BP systolic 104–122; BP diastolic 71–84; PULSE 90–118; RESP 16–23; TEMP 36.1–36.8; O2SAT 96–98; BMI 21.1
[2025-02-03] MEDS: HYDROmorphone INJ 2 MG/ML VIAL 0.25 MG IVP ×3 (04:16→23:31)
[2025-02-03] MEDS: SIMETHICONE 80 MG CHEW PO ×4 (06:00→23:24)
[2025-02-03] MEDS: NYSTATIN SUSP 5 ML UDC PO ×4 (06:00→21:00)
[2025-02-03] MEDS: MIDODRINE 5 MG TABLET PO ×3 (06:04→21:00)
[2025-02-03 06:48] LABS: Magnesium 1.8 mg/dL (1.6-2.6); Phosphorous 2.8 mg/dL (2.4-5.1)
[2025-02-03] MEDS: ASCORBIC ACID 250 MG TABLET 500 MG PO ×2 (08:18→20:59)
[2025-02-03] MEDS: ZINC SULFATE 220 MG CAPSULE PO (08:19)
[2025-02-03] MEDS: HYDROcodone/APAP 5/325 TABLET 1 TAB PO (08:36)
--- NOTE | 2025-02-03 12:07 | ESPR_ITS ---
Documentation for date of: 02/03/25 Subjective Subjective Interval history: No overnight events. Patient seen and examined at bedside. Patient endorsed abdominal discomfort, feeling of needing to have bowel movement. Denies fever, chills, nausea, vomiting. Discussed need for patient to participate in physical therapy. Pending placement in LTAC. Continue pain management and physical therapy. Exam Vital Signs Temp Pulse Resp BP Pulse Ox O2 Del Method O2 Flow Rate 97.3 F 95 20 110/74 96 Room Air 2 02/03/25 08:00 02/03/25 08:46 02/03/25 08:46 02/03/25 08:00 02/03/25 08:46 02/03/25 08:00 02/03/25 08:00 FiO2 30 02/03/25 08:00 Narrative Exam PE: Gen: Well-developed and well-nourished. HEENT: NCAT, PERRLA, EOMI, MMM, anicteric conjunctivae. CVS: normal S1 and S2. RRR. No M/R/G. Resp: CTA B/L. No rhonchi, rales, crackles or wheezing. Abd: soft, non-distended. Ileostomy functioning well. Patient tender to mild palpation. Incision site bandage, with some drainage at the inferior aspect. MSK: Good ROM in BUE & BLE. No edema or rash. Neuro: CN II-XII grossly intact. Strength 5/5 in BUE & BLE. Alert and oriented x3. Objective Labs 02/02/25 05:10 02/02/25 05:10 Labs: Laboratory Results - last 24 hr 02/03/25 05:46 Phosphorus 2.8 Magnesium 1.8 ABG Interpretation ABG results: 01/12/25 01/12/25 01/12/25 02:43 04:40 07:51 ABG pH 7.51 H 7.39 D 7.40 ABG pCO2 29 L 41 D 40 ABG pO2 235 H 145 H D 152 H ABG HCO3 23 25 25 ABG O2 Saturation 100 H 99 H 99 H ABG Base Excess 0 0 0 VBG pH VBG pCO2 VBG pO2 VBG Base Excess 01/13/25 01/15/25 04:17 11:51 ABG pH 7.32 L ABG pCO2 43 ABG pO2 137 H ABG HCO3 22 ABG O2 Saturation 99 H ABG Base Excess -4 L VBG pH 7.65 VBG pCO2 37 VBG pO2 75 H VBG Base Excess 18 H Quality Measures Quality Measures VTE prophylaxis Assessment & Plan Assessment Current Active Medications: Generic Name Dose Route Start Last Admin Trade Name Freq PRN Reason Stop Dose Admin Acetaminophen 650 mg 01/27/25 11:50 02/02/25 21:26 Acetaminophen 325 Mg Tablet PO 02/26/25 11:49 650 mg Q6HR PRN Administration Fever >100.4 or pain 1-3 Hydrocodone Bitart/Acetaminophen 1 tab 02/03/25 11:47 Hydrocodone/Apap 7.5/325 Tablet PO 02/08/25 11:46 Q6HR PRN PAIN SCALE 4-6 (Moderate Albuterol/Ipratropium 3 ml 01/16/25 11:56 01/16/25 12:04 Albuterol/Ipratropium (Duoneb) Rt Bambi 3 Ml Nebu INH 02/15/25 14:59 3 ml Q4HRRT PRN Administration SHORTNESS OF BREATH OR WHEEZE Ascorbic Acid 500 mg 01/18/25 10:30 02/03/25 08:18 Ascorbic Acid 250 Mg Tablet PO 02/17/25 10:29 500 mg BID CAMERON Administration Dextrose 50 ml 01/13/25 06:35 Dextrose 50%-Water Inj 50 Ml Syringe IV 02/12/25 06:34 Q15MIN PRN BG <50 OR BG <70 & pt unresponsive Glucagon 1 mg 01/13/25 06:35 Glucagon Inj 1 Mg Vial IM Q15MIN PRN BG <70, and no IV access Hydromorphone HCl 0.25 mg 02/02/25 16:02 02/03/25 04:16 Hydromorphone Inj 2 Mg/Ml Vial IVP 02/07/25 12:13 0.25 mg Q6H PRN Administration PAIN 7-10 Midodrine 5 mg 02/01/25 22:00 02/03/25 06:04 Midodrine 5 Mg Tablet PO 03/03/25 21:59 5 mg TID CAMERON Administration Nystatin 5 ml 01/28/25 17:00 02/03/25 11:16 Nystatin Susp 5 Ml Udc PO 02/04/25 16:59 5 ml QID CAMERON Administration Phenol/Menthol 0 ml 01/28/25 09:34 Phenol/Na Phenolate (Chloraseptic) [place] 180 Ml Btl PO 02/27/25 09:33 Q6HR PRN SORE THROAT Simethicone 80 mg 01/25/25 19:15 02/03/25 11:16 Simethicone 80 Mg Chew PO 02/24/25 19:14 80 mg Q6HR CAMERON Administration Zinc Sulfate 220 mg 01/18/25 10:30 02/03/25 08:19 Zinc Sulfate 220 Mg Capsule PO 02/17/25 10:29 220 mg QDAY CAMERON Administration Plan 59-year-old female with past medical history of inflammatory bowel disease/ulcerative colitis on chronic steroids that was recently discharged on 12/21/2024 for IBS flareup and admitted on 01/11 for pneumoperitoneum requiring emergent ex-lap. Found to have multiple areas of small and large bowel perforation with feculent peritonitis as well as coloenteric fistulas. Underwent subtotal colectomy on 01/11 and subsequently admitted to the ICU for further management. patient was downgraded to medical floors on 01/15 for furtehr management. #Acute abdomen 2/2 Severe Peritonitis - resolved #POD#13 s/p subtotal colectomy with en-bloc partial small bowel resection #POD#10 s/p Re-exploration, SB anastomosis, cholecystectomy and end ileostomy in the setting of #Inflammatory Bowel Disease #Ulcerative Colitis, fistulizing likely distributive in setting of feculent peritonitis secondary to enterocutaneous fistulas secondary to IBD UC vs. Crohn's CT on admission: pneumoperitoneum and went to OR emergently. Found to have multiple bowel perforations in small and large intestine causing feculent peritonitis. 2: First operation with bowel resection and second 01/12: Blood cultures : Negative 01/14: small bowel anastomosis with end ileostomy, cholecystectomy, and abdominal washout with closure. She was extubated in PACU and then returned to ICU 01/16: Continue with Ice chips (ok with Surgeon), pain control, will wean down off dilaudid pump. Will need to wean off TPN at some point 01/18: Started on clear liquid diet, tolerating well. Will work on weaning off [employer]IST and TPN. 01/19: Diet advanced, no nausea/vomiting, minimal pain attributed to dairy intake. Will wean off SMALL [employer]IST and TPN 01/20: Diet has been advanced to dysphagia [address] Crooks. Patient is tolerating current diet, no abdominal pain, nausea or vomiting. 01/21: Tolerating dysphagia 2 diet well and drinking Ensure in between meals. Ileostomy is functioning well. Abdo pain occurs 30-40 mins after meals but improves with IV pain medicines. 01/22: She still reports some pain, before and after meals but is tolerating feeding without nausea or vomiting. Pain management on [place] 01/23: Reports that she is doing significantly better, had a decent sized breakfast this morning, tolerated well-no abdominal pain right after, no nausea or vomiting. On examination, abdomen is slightly tender. Ileostomy functioning well. Labs reviewed, WBC uptrended to 25. Per ID recs, will continue IV Unasyn. Patient working with physical therapy, progress noted. Will slowly wean off IV pain medications 01/24: Patient is doing well on her diet, no nausea or vomiting, pain is improving. She still little tachycardic, possibly pain related. Labs reviewed, WBC downtrending at 19 today and hemoglobin dropped to 8.7 but patient has no bleeding noted. Evaluated by ID today, will complete IV Unasyn. 01/25: pain is worse. IV dilaudid increased back to 1mg. CT abdomen/pelvis w/ contrast ordered to evaluate abdominal tenderness and worsening clinical status. WBC downtrending 25 -> 19 -> 15, patient remains afebrile. 01/26: Had a repeat CT abdomen done which showed a 4 mm stone in the common hepatic duct and 3 mm in the common bile duct. Evaluated by GI Dr. Gamboa who does not need recommended additional interventions at this time as LFTs are normal. At bedside today, patient has no complaints except minimal pain, still tolerating diet. She did not ambulate with physical therapy yesterday, recommended for PT today 01/27: Patient had rapid response and sepsis alert was called, 1.5 L NS was given, antibiotic coverage broadened to vancomycin and Zosyn, pain regimen adjusted. Patient BP has been well, received 1 L bolus lactated Ringer's. HIDA scan negative for bile leak. Had more discussions with patient regarding LTAC versus SNF, patient was discussed more family before coming to final decision. Patient agreed to attempt to wean off IV pain medications. Antibiotics discontinued following recommendations of surgery and ID. -Dr Daksha following, appreciate recommendations -[place] 5 1 tab p.o. every 6 hours as needed for pain -Dilaudid 0.25 every 6 hours as needed for severe pain -GI to evaluate when to resume mesalamine -Physical therapy to continue working with the patient. -ID consulted appreciate recommendations -Midodrine 5 mg p.o. 3 times daily -Pending placement in LTAC for continued rehab #Protein Calorie Malnutrition-improving #Hypokalemia - recurrent #Hypomagnesemia The patient has had persistently low albumin level since prior to surgery. Likely due to decreased intake as well as losses Dietary recommendations appreciated 01/23-total protein 5.3, albumin 3.2 01/26/2025: Potassium- 3.1, Mg- 1.7 IV albumin 25 g x1 given -Continue oral diet -Replete electrolytes as needed #Dyspnea- resolved #Cough- resolved -Incentive spirometry at bedside -Chest physiotherapy qD #Reactive Leukocytosis-recurrent. WBC : 29 -> 24 -> 22 -> 23.9 Likely secondary to steroid use WBC down trended to 8.9. Patient has had elevations WBCs without fever or any other symptoms. Patient was on steroids at some point however discontinued Antibiotics discontinued, patient remains afebrile. #Normocytic anemia - resolved Presented with hemoglobin of 7.8 that improved to 9.2 after 4 units PRBC, and is also status-post 1 unit FFP 01/15 : Hb 12.2 , wnl -Stable, continue to monitor Disposition: Med/tele. DVT prophylaxis: Lovenox GI prophylaxis: None Diet: Regular CODE STATUS: Full code Plan of care discussed with attending Dr. Recinos. Ridge Hackett MD PGY?1 Attending Provider Attestation/Addendum Meera, Karyna Recinos, DO, attest that I was physically present for the johnson portions of the service and evaluated the patient with the resident and I reviewed and discussed the case with the resident and agree with the resident's findings and plans of care as documented above Patient seen and evaluated this AM. She states that she has some abdominal discomfort and pain. Dressing appears to have some yellow drainage. Will continue with current pain regimen, encouraged PO intake and PT participation.
--- NOTE | 2025-02-03 14:20 | PD.IMPROG ---
Documentation for date of: 02/03/25 Subjective Subjective Interval history: Patient evaluated Had a long talk with the patient regarding her eating habits and cooperation for physical Exam Vital Signs Temp Pulse Resp BP Pulse Ox O2 Del Method O2 Flow Rate 97.3 F 99 22 H 110/74 98 Room Air 2 02/03/25 12:00 02/03/25 12:00 02/03/25 12:00 02/03/25 12:00 02/03/25 12:00 02/03/25 12:00 02/03/25 12:00 FiO2 30 02/03/25 12:00 Objective Labs 02/04/25 05:18 02/04/25 05:18 Labs: Laboratory Results - last 24 hr 02/03/25 05:46 Phosphorus 2.8 Magnesium 1.8 Impressions Impression: Status post exploratory laparotomy with subtotal colectomy end ileostomy Complicated postoperative patient slow recovery Continue current management ABG Interpretation ABG results: 01/12/25 01/12/25 01/12/25 02:43 04:40 07:51 ABG pH 7.51 H 7.39 D 7.40 ABG pCO2 29 L 41 D 40 ABG pO2 235 H 145 H D 152 H ABG HCO3 23 25 25 ABG O2 Saturation 100 H 99 H 99 H ABG Base Excess 0 0 0 VBG pH VBG pCO2 VBG pO2 VBG Base Excess 01/13/25 01/15/25 04:17 11:51 ABG pH 7.32 L ABG pCO2 43 ABG pO2 137 H ABG HCO3 22 ABG O2 Saturation 99 H ABG Base Excess -4 L VBG pH 7.65 VBG pCO2 37 VBG pO2 75 H VBG Base Excess 18 H Assessment & Plan A&P Narrative relative leucocytosis in pt who had received steroids. Hospitalist team checks it daily, that does not make it a better test. if you want her on po rx at home. that is a choice. suggest po keflex 500 qid or 1000 tid and flagyl 500 tid x 5d more if you choose that rx she needs to take her IBD rx daily ordered cortisol level as she was on prednisone before I can not f/u her case as an outpt. please do not suggest that I see her. f/u with outpt primary. I will see again prn Time Spent With Patient Time: Total time spent is greater than 50% in coordination of care (as documented) at patient's floor/unit and/or counseling patient:
[2025-02-03] MEDS: HYDROcodone/APAP 7.5/325 TABLET 1 TAB PO (21:00)
[2025-02-04] VITALS (13 sets, daily range): BP systolic 110–120; BP diastolic 69–85; PULSE 86–124; RESP 16–20; TEMP 36.1–36.6; O2SAT 96–98; BMI 21.0
[2025-02-04] MEDS: ACETAMINOPHEN 325 MG TABLET 650 MG PO (03:01)
[2025-02-04] MEDS: MIDODRINE 5 MG TABLET PO ×3 (05:48→21:37)
[2025-02-04] MEDS: NYSTATIN SUSP 5 ML UDC PO ×2 (05:48→11:31)
[2025-02-04] MEDS: SIMETHICONE 80 MG CHEW PO ×4 (05:49→23:05)
[2025-02-04] MEDS: HYDROcodone/APAP 7.5/325 TABLET 1 TAB PO ×2 (05:54→21:37)
[2025-02-04 06:28] LABS: Basophils # (Auto) 0.2 Thou/mm3 (0.0-0.2); Basophils % (Auto) 1 % (0-2.5); Eosinophils # (Auto) 0.1 Thou/mm3 (0.0-0.5); Eosinophils % (Auto) 0 % (0-10); Hematocrit 33.3 % (36.0-46.0); Hemoglobin 10.7 g/dL (12.0-16.0); Immature Granulocytes % (Auto) 6 % (0-0); Immature Granulocytes Auto 1.29 Thou/mm3 (0.00-0.00); Lymphocytes # (Auto) 2.6 Thou/mm3 (1.0-4.8); Lymphocytes % (Auto) 12 % (10-50); Mean Corpuscular HGB Conc 32.1 g/dl (31.0-37.0); Mean Corpuscular Hemoglobin 29.9 pg (25.0-35.0); Mean Corpuscular Volume 93 fL (80-100); Monocytes # (Auto) 1.3 Thou/mm3 (0.0-0.8); Monocytes % (Auto) 6 % (0-12); Neutrophils # (Auto) 17.3 Thou/mm3 (1.8-7.7); Neutrophils % (Auto) 76 % (37-80); Nucleated Red Blood Cell % 0 /100 WBC (0); Platelet Count 972 Thou/mm3 (140-440); RDW Standard Deviation 60.6 fL (36.4-46.3); Red Blood Count 3.58 Miln/mm3 (4.00-5.20); White Blood Count 22.8 Thou/mm3 (3.6-11.0)
[2025-02-04 07:06] LABS: Alanine Aminotransferase 24 U/L (10-49); Albumin, Serum 3.5 gm/dL (3.4-4.8); Albumin/Globulin Ratio 1.3 (1.2-2.2); Alkaline Phosphatase 257 U/L (46-116); Anion Gap 8 (7-16); Aspartate Amino Transferase 28 U/L (0-34); BUN/Creatinine Ratio 23 Ratio (12-20); Bilirubin,Total 0.5 mg/dL (0.3-1.2); Blood Urea Nitrogen 9 mg/dL (9-23); Calcium 9.1 mg/dL (8.3-10.6); Calcium (Corrected) 9.5 mg/dL (8.5-10.1); Carbon Dioxide 29.9 mMol/L (20.0-31.0); Chloride 94 mMol/L (98-107); Creatinine (Component) 0.4 mg/dL (0.6-1.3); Estimated Creatinine Clearance 111.5 mL/min (>60); Globulin 2.7 gm/dL (2.3-3.5); Glucose 92 mg/dL (74-106); Osmolality,Calculated 263 (275-295); Potassium 3.8 mMol/L (3.4-5.1); Sodium 132 mMol/L (136-145); Total Protein 6.2 gm/dL (5.7-8.2); eGFR > 60 See Note
[2025-02-04] MEDS: HYDROmorphone INJ 2 MG/ML VIAL 0.25 MG IVP ×2 (07:41→16:50)
[2025-02-04] MEDS: ZINC SULFATE 220 MG CAPSULE PO (08:53)
[2025-02-04] MEDS: ASCORBIC ACID 250 MG TABLET 500 MG PO ×2 (08:53→21:37)
--- NOTE | 2025-02-04 10:59 | PC.SS ---
Follow up note: Patient is pending auth for [facility]. F/u Wednesday with auth
--- NOTE | 2025-02-04 11:37 | PC.NURSE ---
Patient wanted bottled water I put an order for the water. Will continue to monitor patient.
--- NOTE | 2025-02-04 12:01 | PD.RESPRO ---
Documentation for date of: 02/04/25 Subjective Subjective Interval history: Patient seen and examined at bedside. Patient appears to be in moderate distress due to pain. Patient seen nibbling at her breakfast. Patient was tachycardic at 113, and leukocytosis increased to 22. Patient started on on IV fluids NS. Patient continue to work with PT and continue with IV pain meds as tolerated to help with ambulation. Patient is still pending auth to LTAC in [place]. Exam Vital Signs Temp Pulse Resp BP Pulse Ox O2 Del Method O2 Flow Rate 97.0 F 108 H 18 114/81 98 Room Air 2 02/04/25 12:00 02/04/25 12:00 02/04/25 12:00 02/04/25 12:00 02/04/25 12:00 02/04/25 12:00 02/03/25 16:00 FiO2 30 02/03/25 16:00 Narrative Exam General Appearance: Pt in moderate acute distress laying in bed, well-developed, well-nourished. Alert and oriented. HEENT: NC/AT, no scleral icterus, no conjunctival pallor, MMM Lungs: CTAB, no wheezes or crackles appreciated CVS: RRR, S1/S2 heard, no murmurs or rubs appreciated ABD: Tender to mild palpation. Ileostomy functioning well, with liquid seen in bag. Incision site bandage continues to have drainage at incision site. Will EXT: no deformity/edema/lesions/cyanosis/clubbing, radial pulses 2+ BL, DP pulses 2 + BL SKIN: Skin exam normal without any rashes. Neuro: A&O x 3. No gross neurological deficits. Motor and sensory grossly intact in B/L UL and LL. Psych: Appropriate mood and affect Objective Labs 02/04/25 05:18 02/04/25 05:18 Labs: Laboratory Results - last 24 hr 02/04/25 05:18 WBC 22.8 H D RBC 3.58 L Hgb 10.7 L Hct 33.3 L MCV 93 MCH 29.9 MCHC 32.1 RDW Std Deviation 60.6 H Plt Count 972 H D Neut % (Auto) 76 Lymph % (Auto) 12 [place] % (Auto) 6 Eos % (Auto) 0 Baso % (Auto) 1 Neut # (Auto) 17.3 H Lymph # (Auto) 2.6 [place] # (Auto) 1.3 H Eos # (Auto) 0.1 Baso # (Auto) 0.2 Immature Gran # (Auto) 1.29 H Absolute Nucleated RBC 0.00 Immature Gran % 6 H Nucleated RBC % 0 Sodium 132 L Potassium 3.8 D Chloride 94 L Carbon Dioxide 29.9 Anion Gap 8 BUN 9 Creatinine 0.4 L Estim Creat Clear Calc 111.5 eGFR > 60 BUN/Creatinine Ratio 23 H Glucose 92 Calculated Osmolality 263 L Calcium 9.1 Corrected Calcium 9.5 Total Bilirubin 0.5 AST 28 ALT 24 Alkaline Phosphatase 257 H D Total Protein 6.2 Albumin 3.5 Globulin 2.7 Albumin/Globulin Ratio 1.3 ABG Interpretation ABG results: 01/12/25 01/12/25 01/12/25 02:43 04:40 07:51 ABG pH 7.51 H 7.39 D 7.40 ABG pCO2 29 L 41 D 40 ABG pO2 235 H 145 H D 152 H ABG HCO3 23 25 25 ABG O2 Saturation 100 H 99 H 99 H ABG Base Excess 0 0 0 VBG pH VBG pCO2 VBG pO2 VBG Base Excess 01/13/25 01/15/25 04:17 11:51 ABG pH 7.32 L ABG pCO2 43 ABG pO2 137 H ABG HCO3 22 ABG O2 Saturation 99 H ABG Base Excess -4 L VBG pH 7.65 VBG pCO2 37 VBG pO2 75 H VBG Base Excess 18 H Quality Measures Quality Measures VTE prophylaxis Assessment & Plan Assessment Current Active Medications: Generic Name Dose Route Start Last Admin Trade Name Freq PRN Reason Stop Dose Admin Acetaminophen 650 mg 01/27/25 11:50 02/04/25 03:01 Acetaminophen 325 Mg Tablet PO 02/26/25 11:49 650 mg Q6HR PRN Administration Fever >100.4 or pain 1-3 Hydrocodone Bitart/Acetaminophen 1 tab 02/03/25 11:47 02/04/25 05:54 Hydrocodone/Apap 7.5/325 Tablet PO 02/08/25 11:46 1 tab Q6HR PRN Administration PAIN SCALE 4-6 (Moderate Albuterol/Ipratropium 3 ml 01/16/25 11:56 01/16/25 12:04 Albuterol/Ipratropium (Duoneb) Rt Bambi 3 Ml Nebu INH 02/15/25 14:59 3 ml Q4HRRT PRN Administration SHORTNESS OF BREATH OR WHEEZE Ascorbic Acid 500 mg 01/18/25 10:30 02/04/25 08:53 Ascorbic Acid 250 Mg Tablet PO 02/17/25 10:29 500 mg BID CAMERON Administration Dextrose 50 ml 01/13/25 06:35 Dextrose 50%-Water Inj 50 Ml Syringe IV 02/12/25 06:34 Q15MIN PRN BG <50 OR BG <70 & pt unresponsive Glucagon 1 mg 01/13/25 06:35 Glucagon Inj 1 Mg Vial IM Q15MIN PRN BG <70, and no IV access Hydromorphone HCl 0.25 mg 02/02/25 16:02 02/04/25 07:41 Hydromorphone Inj 2 Mg/Ml Vial IVP 02/07/25 12:13 0.25 mg Q6H PRN Administration PAIN 7-10 Sodium Chloride 1,000 mls @ 75 mls/hr 02/04/25 07:35 Ns IV 03/06/25 07:34 .[id number] CAMERON Midodrine 5 mg 02/01/25 22:00 02/04/25 05:48 Midodrine 5 Mg Tablet PO 03/03/25 21:59 5 mg TID CAMERON Administration Nystatin 5 ml 01/28/25 17:00 02/04/25 11:31 Nystatin Susp 5 Ml Udc PO 02/04/25 16:59 5 ml QID CAMERON Administration Phenol/Menthol 0 ml 01/28/25 09:34 Phenol/Na Phenolate (Chloraseptic) [place] 180 Ml Btl PO 02/27/25 09:33 Q6HR PRN SORE THROAT Simethicone 80 mg 01/25/25 19:15 02/04/25 11:31 Simethicone 80 Mg Chew PO 02/24/25 19:14 80 mg Q6HR CAMERON Administration Zinc Sulfate 220 mg 01/18/25 10:30 02/04/25 08:53 Zinc Sulfate 220 Mg Capsule PO 02/17/25 10:29 220 mg QDAY CAMERON Administration Plan 59-year-old female with past medical history of inflammatory bowel disease/ulcerative colitis on chronic steroids that was recently discharged on 12/21/2024 for IBS flareup and admitted on 01/11 for pneumoperitoneum requiring emergent ex-lap. Found to have multiple areas of small and large bowel perforation with feculent peritonitis as well as coloenteric fistulas. Underwent subtotal colectomy on 01/11 and subsequently admitted to the ICU for further management. patient was downgraded to medical floors on 01/15 for furtehr management. #Acute abdomen 2/2 Severe Peritonitis - resolved #POD#13 s/p subtotal colectomy with en-bloc partial small bowel resection #POD#10 s/p Re-exploration, SB anastomosis, cholecystectomy and end ileostomy in the setting of #Inflammatory Bowel Disease #Ulcerative Colitis, fistulizing likely distributive in setting of feculent peritonitis secondary to enterocutaneous fistulas secondary to IBD UC vs. Crohn's CT on admission: pneumoperitoneum and went to OR emergently. Found to have multiple bowel perforations in small and large intestine causing feculent peritonitis. 2: First operation with bowel resection and second 01/12: Blood cultures : Negative 01/14: small bowel anastomosis with end ileostomy, cholecystectomy, and abdominal washout with closure. She was extubated in PACU and then returned to ICU 01/16: Continue with Ice chips (ok with Surgeon), pain control, will wean down off dilaudid pump. Will need to wean off TPN at some point 01/18: Started on clear liquid diet, tolerating well. Will work on weaning off [employer]ON [employer] and TPN. 01/19: Diet advanced, no nausea/vomiting, minimal pain attributed to dairy intake. Will wean off [employer]ON P[employer]ER and TPN 01/20: Diet has been advanced to dysphagia [address] Crooks. Patient is tolerating current diet, no abdominal pain, nausea or vomiting. 01/21: Tolerating dysphagia 2 diet well and drinking Ensure in between meals. Ileostomy is functioning well. Abdo pain occurs 30-40 mins after meals but improves with IV pain medicines. 01/22: She still reports some pain, before and after meals but is tolerating feeding without nausea or vomiting. Pain management on [place] 01/23: Reports that she is doing significantly better, had a decent sized breakfast this morning, tolerated well-no abdominal pain right after, no nausea or vomiting. On examination, abdomen is slightly tender. Ileostomy functioning well. Labs reviewed, WBC uptrended to 25. Per ID recs, will continue IV Unasyn. Patient working with physical therapy, progress noted. Will slowly wean off IV pain medications 01/24: Patient is doing well on her diet, no nausea or vomiting, pain is improving. She still little tachycardic, possibly pain related. Labs reviewed, WBC downtrending at 19 today and hemoglobin dropped to 8.7 but patient has no bleeding noted. Evaluated by ID today, will complete IV Unasyn. 01/25: pain is worse. IV dilaudid increased back to 1mg. CT abdomen/pelvis w/ contrast ordered to evaluate abdominal tenderness and worsening clinical status. WBC downtrending 25 -> 19 -> 15, patient remains afebrile. 01/26: Had a repeat CT abdomen done which showed a 4 mm stone in the common hepatic duct and 3 mm in the common bile duct. Evaluated by GI Dr. Gamboa who does not need recommended additional interventions at this time as LFTs are normal. At bedside today, patient has no complaints except minimal pain, still tolerating diet. She did not ambulate with physical therapy yesterday, recommended for PT today 01/27: Patient had rapid response and sepsis alert was called, 1.5 L NS was given, antibiotic coverage broadened to vancomycin and Zosyn, pain regimen adjusted. Patient BP has been well, received 1 L bolus lactated Ringer's. HIDA scan negative for bile leak. Had more discussions with patient regarding LTAC versus SNF, patient was discussed more family before coming to final decision. Patient agreed to attempt to wean off IV pain medications. Antibiotics discontinued following recommendations of surgery and ID. -Dr Crooks following, appreciate recommendations -[place] 5 1 tab p.o. every 6 hours as needed for pain -Dilaudid 0.25 every 6 hours as needed for severe pain -GI to evaluate when to resume mesalamine -Physical therapy to continue working with the patient. -ID consulted appreciate recommendations -Midodrine 5 mg p.o. 3 times daily -Pending placement in LTAC for continued rehab -Started IVF NS at 75cc/hr #Protein Calorie Malnutrition-improving #Hypokalemia - recurrent #Hypomagnesemia The patient has had persistently low albumin level since prior to surgery. Likely due to decreased intake as well as losses Dietary recommendations appreciated 01/23-total protein 5.3, albumin 3.2 01/26/2025: Potassium- 3.1, Mg- 1.7 IV albumin 25 g x1 given -Continue oral diet -Replete electrolytes as needed #Dyspnea- resolved #Cough- resolved -Incentive spirometry at bedside -Chest physiotherapy qD #Reactive Leukocytosis-recurrent. WBC : 29 -> 24 -> 22 -> 23.9 Likely secondary to steroid use WBC down trended to 8.9. Patient has had elevations WBCs without fever or any other symptoms. Patient was on steroids at some point however discontinued Antibiotics discontinued, patient remains afebrile -Started IVF NS at 75cc/hr #Normocytic anemia - resolved Presented with hemoglobin of 7.8 that improved to 9.2 after 4 units PRBC, and is also status-post 1 unit FFP 01/15 : Hb 12.2 , wnl -Stable, continue to monitor Health maintenance: Disposition: Med/tele. DVT prophylaxis: Lovenox GI prophylaxis: None Diet: Regular CODE STATUS: Full code Patient's plan and care discussed with my attending, Dr. Jorje Harris MD PGY-2 Attending Provider Attestation/Addendum IKaryna DO, attest that I was physically present for the johnson portions of the service and evaluated the patient with the resident and I reviewed and discussed the case with the resident and agree with the resident's findings and plans of care as documented above Patient seen and evaluated this AM. She states she is doing well. No acute events overnight. She states that she wants to rest, but is having frequent interruptions. Pain is otherwise well controlled. Will continue with current management. Pending auth for LTAC
--- NOTE | 2025-02-04 16:09 | PD.SURPROG ---
Documentation for date of: 02/04/25 Subjective Subjective Narrative: Patient is seen and examined. She is resting comfortably. She denies abdominal pain at this time Exam Vital Signs Temp Pulse Resp BP Pulse Ox O2 Del Method O2 Flow Rate 97.0 F 108 H 18 114/81 98 Room Air 2 02/04/25 12:00 02/04/25 13:14 02/04/25 12:00 02/04/25 13:14 02/04/25 12:00 02/04/25 12:00 02/03/25 16:00 FiO2 30 02/03/25 16:00 Constitutional Constitutional: no acute distress Routine Abdominal Exam Comments: Abdomen is soft and nondistended. Ileostomy is functioning. She continues to have purulent drainage emanating from the inferior aspect of the incision Assessment & Plan Assessment Additional comments: Status post subtotal colectomy with en bloc small bowel resection, cholecystectomy with end ileostomy. WBC is rising and she continues to have purulent drainage from the inferior aspect of the incision Plan Repeat CT scan of abdomen pelvis with IV contrast, if fluid collections or intra-abdominal abscess cavity is noted we will proceed with percutaneous drainage by IR. Procedures Procedures Exploratory laparotomy, small bowel anastomosis with end ileostomy Cholecystectomy Abdominal washout and closure
--- NOTE | 2025-02-04 16:11 | XR_ITS ---
Examination: CT abdomen with intravenous contrast CT pelvis with intravenous contrast 2-D coronal reconstructions 2-D sagittal reconstructions Date and time of exam:February 04, 2025 1715 hrs. Indications: Status post exploratory laparotomy this week. CTDI: vol (mGy) 5.95 DLP: (mGycm) 281 Technique: Multiple axial sections of the abdomen and pelvis have been obtained. 64 slice high-resolution scanner used. 3 mm axial sections have been obtained, post intravenous injection 60 cc [id number] 2-D sagittal, coronal reconstructions obtained. Low dose protocols were performed. One or more of the following dose reduction techniques were used; automated exposure control, adjustment of the mA and/or KV according to patient size, use of iterative reconstruction technique. Findings: Perigastric information Mild intrahepatic biliary tract dilatation Common hepatic duct 9 mm No pancreatic mass Perinephric stranding Right ileostomy Fluid distended small bowel in the pelvis Mild free fluid in the pelvis and abdomen Urinary bladder wall mild thickening No abdominal or pelvic abscess Impression: Extrahepatic biliary tract dilatation, recommend hepatobiliary sonography follow-up Suspicious for right urinary tract infection Small bowel ileus pattern No abdominal or pelvic abscess
--- NOTE | 2025-02-04 16:36 | ESPR_ITS ---
Documentation for date of: 02/04/25 Subjective Subjective Interval history: WBC count rising to 22.8 Agree with obtaining a CT scan of the abdomen pelvis with contrast to see if there is an intra-abdominal abscess this can be obtained by IR Exam Vital Signs Temp Pulse Resp BP Pulse Ox O2 Del Method O2 Flow Rate 97.0 F 108 H 18 114/81 98 Room Air 2 02/04/25 12:00 02/04/25 13:14 02/04/25 12:00 02/04/25 13:14 02/04/25 12:00 02/04/25 12:00 02/03/25 16:00 FiO2 30 02/03/25 16:00 Objective Labs 02/04/25 05:18 02/04/25 05:18 Labs: Laboratory Results - last 24 hr 02/04/25 05:18 WBC 22.8 H D RBC 3.58 L Hgb 10.7 L Hct 33.3 L MCV 93 MCH 29.9 MCHC 32.1 RDW Std Deviation 60.6 H Plt Count 972 H D Neut % (Auto) 76 Lymph % (Auto) 12 [place] % (Auto) 6 Eos % (Auto) 0 Baso % (Auto) 1 Neut # (Auto) 17.3 H Lymph # (Auto) 2.6 [place] # (Auto) 1.3 H Eos # (Auto) 0.1 Baso # (Auto) 0.2 Immature Gran # (Auto) 1.29 H Absolute Nucleated RBC 0.00 Immature Gran % 6 H Nucleated RBC % 0 Sodium 132 L Potassium 3.8 D Chloride 94 L Carbon Dioxide 29.9 Anion Gap 8 BUN 9 Creatinine 0.4 L Estim Creat Clear Calc 111.5 eGFR > 60 BUN/Creatinine Ratio 23 H Glucose 92 Calculated Osmolality 263 L Calcium 9.1 Corrected Calcium 9.5 Total Bilirubin 0.5 AST 28 ALT 24 Alkaline Phosphatase 257 H D Total Protein 6.2 Albumin 3.5 Globulin 2.7 Albumin/Globulin Ratio 1.3 Impressions Impression: # Leukocytosis # Status post subtotal colectomy Repeat CT scan of the abdomen pelvis with contrast ABG Interpretation ABG results: 01/12/25 01/12/25 01/12/25 02:43 04:40 07:51 ABG pH 7.51 H 7.39 D 7.40 ABG pCO2 29 L 41 D 40 ABG pO2 235 H 145 H D 152 H ABG HCO3 23 25 25 ABG O2 Saturation 100 H 99 H 99 H ABG Base Excess 0 0 0 VBG pH VBG pCO2 VBG pO2 VBG Base Excess 01/13/25 01/15/25 04:17 11:51 ABG pH 7.32 L ABG pCO2 43 ABG pO2 137 H ABG HCO3 22 ABG O2 Saturation 99 H ABG Base Excess -4 L VBG pH 7.65 VBG pCO2 37 VBG pO2 75 H VBG Base Excess 18 H Assessment & Plan A&P Narrative relative leucocytosis in pt who had received steroids. Hospitalist team checks it daily, that does not make it a better test. if you want her on po rx at home. that is a choice. suggest po keflex 500 qid or 1000 tid and flagyl 500 tid x 5d more if you choose that rx she needs to take her IBD rx daily ordered cortisol level as she was on prednisone before I can not f/u her case as an outpt. please do not suggest that I see her. f/u with outpt primary. I will see again prn Time Spent With Patient Time: Total time spent is greater than 50% in coordination of care (as documented) at patient's floor/unit and/or counseling patient:
[2025-02-04] MEDS: SODIUM CHLORIDE 0.9% 1000 ML 1,000 ML 75 ML IV (23:14)
[2025-02-05] VITALS (10 sets, daily range): BP systolic 112–131; BP diastolic 74–83; PULSE 90–118; RESP 14–21; TEMP 36.1–36.3; O2SAT 94–99; BMI 20.7
[2025-02-05] MEDS: HYDROmorphone INJ 2 MG/ML VIAL 0.25 MG IVP ×3 (04:46→16:42)
[2025-02-05] MEDS: SIMETHICONE 80 MG CHEW PO ×3 (05:12→18:15)
[2025-02-05] MEDS: MIDODRINE 5 MG TABLET PO ×2 (05:12→21:20)
[2025-02-05] MEDS: ZINC SULFATE 220 MG CAPSULE PO (08:01)
[2025-02-05] MEDS: ASCORBIC ACID 250 MG TABLET 500 MG PO ×2 (08:01→21:20)
[2025-02-05] MEDS: HYDROcodone/APAP 7.5/325 TABLET 1 TAB PO ×3 (08:10→21:19)
--- NOTE | 2025-02-05 09:36 | PC.SS ---
SS spoke to Tasha [phone] from [facility], per Tasha we are still pending auth. Tasha requested updated clinicals which were sent via [employer].
[2025-02-05] MEDS: SODIUM CHLORIDE 0.9% 1000 ML 1,000 ML 75 ML IV (11:04)
--- NOTE | 2025-02-05 13:14 | PD.SURPROG ---
Documentation for date of: 02/05/25 Subjective Subjective Narrative: Patient is complaining of pain over the lower portion of the incision Exam Vital Signs Temp Pulse Resp BP Pulse Ox O2 Del Method O2 Flow Rate 97.2 F 114 H 18 122/82 95 Room Air 2 02/05/25 08:00 02/05/25 08:00 02/05/25 08:00 02/05/25 08:00 02/05/25 08:00 02/05/25 04:00 02/03/25 16:00 FiO2 30 02/03/25 16:00 Her vital signs are normal other than tachycardia Routine Abdominal Exam Comments: Examination of the abdomen showed drainage at the lower portion of the incision Assessment & Plan Assessment Additional comments: Impression: Superficial wound infection Plan Plan: I removed few andres from the lower end of the incision and drained some purulent fluid. There are no bowel contents but I probing the wound I find that it that there was a large cavity suggesting she may have an empty space or even dehiscence of the fascia. At the present time we will treat like superficial wound infection. Procedures Procedures Exploratory laparotomy, small bowel anastomosis with end ileostomy Cholecystectomy Abdominal washout and closure
--- NOTE | 2025-02-05 13:38 | PC.NURSE ---
HAD TO CALL PHARMACY I ACCIDENTALLY RETURNED THE MERRIMAC ALONG WTIH THE PROAMATINE. CHEPE FROM PHARMACY CAME DOWN AND OPENED [employer] AND I CORRECTLY RETURNED THE NORCO BACK TO [employer].
--- NOTE | 2025-02-05 16:00 | PC.NURSE ---
Dr. Calles came removed a few andres from lower end of patients abdominal incision. Drained purulent fluid from patients incision. Will continue to monitor patient.
--- NOTE | 2025-02-05 16:05 | PC.NURSE ---
CHANGED PATIENTS ABDOMINAL DRESSING AT HER REQUEST. WILL CONTINUE TO MONITOR PATIENT.
--- NOTE | 2025-02-05 16:12 | PC.NURSE ---
NOTIFIED DR. JOHNSON PATIENT WOULD LIKE TO SPEAK TO A DOCTOR. WILL CONTINUE TO MONITOR PATIENT.
--- NOTE | 2025-02-05 16:47 | ESPR_ITS ---
<Statement entered by Graciela Harris MD - 02/05/25 18:27> Patient seen and examined at bedside. No acute overnight events reported. Patient reported improvement working with PT today, and in happy spirits. Patient however still endorses abdominal pain, requiring IV pain meds with Dilaudid. Pending LTAC authorization in [place]. Repeat CT abdomen yesterday was performed due to elevated white count, however did not show any new signs of infection, or abscesses at incision site of surgery. There was some concern for right UTI, however patient denied having any dysuria, frequent urination or any other urinary complaints. UA showed no signs of UTI, despite turbid clarity, most likely in the setting of dehydration. I discussed with and supervised the internet retailer physician who took care of this patient. I personally saw and examined the patient and discussed the assessment and plan with the entire medicine team, including my attending Dr. Recinos, I agree with most of the assessment and plan as documented below Graciela Harris M.D. PGY-2 Disclaimer: Despite multiple revisions, due to the dictation software being used, the document bellow may not be free of grammatical errors including phonetic/typographic errors. However, this does not deter from our commitment to providing health care in the patient's best interest in mind. Documentation for date of: 02/05/25 Subjective Subjective Interval history: Overnight events. Patient seen examined bedside. Patient continues to endorse abdominal pain, weakness. Notes poor appetite. Has difficulty participating with physical therapy without IV pain meds. Discharg to LTAC. Continue current pain management, encourage p.o. intake and physical therapy. Exam Vital Signs Temp Pulse Resp BP Pulse Ox O2 Del Method O2 Flow Rate 97.3 F 90 18 131/81 H 94 L Room Air 2 02/05/25 12:00 02/05/25 12:00 02/05/25 12:00 02/05/25 12:00 02/05/25 12:00 02/05/25 04:00 02/03/25 16:00 FiO2 30 02/03/25 16:00 Narrative Exam PE: Gen: Well-developed and well-nourished. HEENT: NCAT, PERRLA, EOMI, MMM, anicteric conjunctivae. CVS: normal S1 and S2. RRR. No M/R/G. Resp: CTA B/L. No rhonchi, rales, crackles or wheezing. Abd: soft, non-distended. Ileostomy functioning well. Patient tender to mild palpation. Incision site bandage, with some drainage at the inferior aspect. MSK: Good ROM in BUE & BLE. No edema or rash. Neuro: CN II-XII grossly intact. Strength 5/5 in BUE & BLE. Alert and oriented x3. Objective Labs 02/06/25 05:38 02/06/25 05:38 ABG Interpretation ABG results: 01/12/25 01/12/25 01/12/25 02:43 04:40 07:51 ABG pH 7.51 H 7.39 D 7.40 ABG pCO2 29 L 41 D 40 ABG pO2 235 H 145 H D 152 H ABG HCO3 23 25 25 ABG O2 Saturation 100 H 99 H 99 H ABG Base Excess 0 0 0 VBG pH VBG pCO2 VBG pO2 VBG Base Excess 01/13/25 01/15/25 04:17 11:51 ABG pH 7.32 L ABG pCO2 43 ABG pO2 137 H ABG HCO3 22 ABG O2 Saturation 99 H ABG Base Excess -4 L VBG pH 7.65 VBG pCO2 37 VBG pO2 75 H VBG Base Excess 18 H Quality Measures Quality Measures VTE prophylaxis Assessment & Plan Assessment Current Active Medications: Generic Name Dose Route Start Last Admin Trade Name Freq PRN Reason Stop Dose Admin Acetaminophen 650 mg 01/27/25 11:50 02/04/25 03:01 Acetaminophen 325 Mg Tablet PO 02/26/25 11:49 650 mg Q6HR PRN Administration Fever >100.4 or pain 1-3 Hydrocodone Bitart/Acetaminophen 1 tab 02/03/25 11:47 02/05/25 15:21 Hydrocodone/Apap 7.5/325 Tablet PO 02/08/25 11:46 1 tab Q6HR PRN Administration PAIN SCALE 4-6 (Moderate Albuterol/Ipratropium 3 ml 01/16/25 11:56 01/16/25 12:04 Albuterol/Ipratropium (Duoneb) Rt Bambi 3 Ml Nebu INH 02/15/25 14:59 3 ml Q4HRRT PRN Administration SHORTNESS OF BREATH OR WHEEZE Ascorbic Acid 500 mg 01/18/25 10:30 02/05/25 08:01 Ascorbic Acid 250 Mg Tablet PO 02/17/25 10:29 500 mg BID CAMERON Administration Dextrose 50 ml 01/13/25 06:35 Dextrose 50%-Water Inj 50 Ml Syringe IV 02/12/25 06:34 Q15MIN PRN BG <50 OR BG <70 & pt unresponsive Glucagon 1 mg 01/13/25 06:35 Glucagon Inj 1 Mg Vial IM Q15MIN PRN BG <70, and no IV access Hydromorphone HCl 0.25 mg 02/02/25 16:02 02/05/25 11:09 Hydromorphone Inj 2 Mg/Ml Vial IVP 02/07/25 12:13 0.25 mg Q6H PRN Administration PAIN 7-10 Sodium Chloride 1,000 mls @ 75 mls/hr 02/04/25 07:35 02/05/25 11:04 Ns IV 03/06/25 07:34 75 mls/hr .[id number] CAMERON Administration Midodrine 5 mg 02/01/25 22:00 02/05/25 13:22 Midodrine 5 Mg Tablet PO 03/03/25 21:59 Not Given TID CAMERON Phenol/Menthol 0 ml 01/28/25 09:34 Phenol/Na Phenolate (Chloraseptic) [place] 180 Ml Btl PO 02/27/25 09:33 Q6HR PRN SORE THROAT Simethicone 80 mg 01/25/25 19:15 02/05/25 11:04 Simethicone 80 Mg Chew PO 02/24/25 19:14 80 mg Q6HR CAMERON Administration Zinc Sulfate 220 mg 01/18/25 10:30 02/05/25 08:01 Zinc Sulfate 220 Mg Capsule PO 02/17/25 10:29 220 mg QDAY CAMERON Administration Plan 59-year-old female with past medical history of inflammatory bowel disease/ulcerative colitis on chronic steroids that was recently discharged on 12/21/2024 for IBS flareup and admitted on 01/11 for pneumoperitoneum requiring emergent ex-lap. Found to have multiple areas of small and large bowel perforation with feculent peritonitis as well as coloenteric fistulas. Underwent subtotal colectomy on 01/11 and subsequently admitted to the ICU for further management. patient was downgraded to medical floors on 01/15 for furtehr management. #Acute abdomen 2/2 Severe Peritonitis - resolved #POD#13 s/p subtotal colectomy with en-bloc partial small bowel resection #POD#10 s/p Re-exploration, SB anastomosis, cholecystectomy and end ileostomy in the setting of #Inflammatory Bowel Disease #Ulcerative Colitis, fistulizing likely distributive in setting of feculent peritonitis secondary to enterocutaneous fistulas secondary to IBD UC vs. Crohn's CT on admission: pneumoperitoneum and went to OR emergently. Found to have multiple bowel perforations in small and large intestine causing feculent peritonitis. 2: First operation with bowel resection and second 2: Blood cultures : Negative 01/14: small bowel anastomosis with end ileostomy, cholecystectomy, and abdominal washout with closure. She was extubated in PACU and then returned to ICU 01/16: Continue with Ice chips (ok with Surgeon), pain control, will wean down off dilaudid pump. Will need to wean off TPN at some point 01/18: Started on clear liquid diet, tolerating well. Will work on weaning off MIME ARTIST and TPN. 01/19: Diet advanced, no nausea/vomiting, minimal pain attributed to dairy intake. Will wean off MIME ARTIST and TPN 01/20: Diet has been advanced to dysphagia [address] Crooks. Patient is tolerating current diet, no abdominal pain, nausea or vomiting. 01/21: Tolerating dysphagia 2 diet well and drinking Ensure in between meals. Ileostomy is functioning well. Abdo pain occurs 30-40 mins after meals but improves with IV pain medicines. 01/22: She still reports some pain, before and after meals but is tolerating feeding without nausea or vomiting. Pain management on May 01/23: Reports that she is doing significantly better, had a decent sized breakfast this morning, tolerated well-no abdominal pain right after, no nausea or vomiting. On examination, abdomen is slightly tender. Ileostomy functioning well. Labs reviewed, WBC uptrended to 25. Per ID recs, will continue IV Unasyn. Patient working with physical therapy, progress noted. Will slowly wean off IV pain medications 01/24: Patient is doing well on her diet, no nausea or vomiting, pain is improving. She still little tachycardic, possibly pain related. Labs reviewed, WBC downtrending at 19 today and hemoglobin dropped to 8.7 but patient has no bleeding noted. Evaluated by ID today, will complete IV Unasyn. 01/25: pain is worse. IV dilaudid increased back to 1mg. CT abdomen/pelvis w/ contrast ordered to evaluate abdominal tenderness and worsening clinical status. WBC downtrending 25 -> 19 -> 15, patient remains afebrile. 01/26: Had a repeat CT abdomen done which showed a 4 mm stone in the common hepatic duct and 3 mm in the common bile duct. Evaluated by GI Dr. Gamboa who does not need recommended additional interventions at this time as LFTs are normal. At bedside today, patient has no complaints except minimal pain, still tolerating diet. She did not ambulate with physical therapy yesterday, recommended for PT today 01/27: Patient had rapid response and sepsis alert was called, 1.5 L NS was given, antibiotic coverage broadened to vancomycin and Zosyn, pain regimen adjusted. Patient BP has been well, received 1 L bolus lactated Ringer's. HIDA scan negative for bile leak. Had more discussions with patient regarding LTAC versus SNF, patient was discussed more family before coming to final decision. Patient agreed to attempt to wean off IV pain medications. Antibiotics discontinued following recommendations of surgery and ID. -Dr Crooks following, appreciate recommendations -May 5 1 tab p.o. every 6 hours as needed for pain -Dilaudid 0.25 every 6 hours as needed for severe pain -GI to evaluate when to resume mesalamine -Physical therapy to continue working with the patient. -ID consulted appreciate recommendations -Midodrine 5 mg p.o. 3 times daily -Pending placement in LTAC for continued rehab -Started IVF NS at 75cc/hr #Protein Calorie Malnutrition-improving #Hypokalemia - recurrent #Hypomagnesemia The patient has had persistently low albumin level since prior to surgery. Likely due to decreased intake as well as losses Dietary recommendations appreciated 01/23-total protein 5.3, albumin 3.2 01/26/2025: Potassium- 3.1, Mg- 1.7 IV albumin 25 g x1 given -Continue oral diet -Replete electrolytes as needed #Dyspnea- resolved #Cough- resolved -Incentive spirometry at bedside -Chest physiotherapy qD #Reactive Leukocytosis-recurrent. WBC : 29 -> 24 -> 22 -> 23.9 Likely secondary to steroid use WBC down trended to 8.9. Patient has had elevations WBCs without fever or any other symptoms. Patient was on steroids at some point however discontinued Antibiotics discontinued, patient remains afebrile -Started IVF NS at 75cc/hr #Normocytic anemia - resolved Presented with hemoglobin of 7.8 that improved to 9.2 after 4 units PRBC, and is also status-post 1 unit FFP 01/15 : Hb 12.2 , wnl -Stable, continue to monitor Disposition: Med/tele. DVT prophylaxis: Lovenox GI prophylaxis: None Diet: Regular CODE STATUS: Full code Plan of care discussed with senior resident Dr. Harris PGY?[address] Recinos. Ridge Hackett MD PGY?1 Attending Provider Attestation/Addendum Meera, Karyna Recinos, , attest that I was physically present for the johnson portions of the service and evaluated the patient with the resident and I reviewed and discussed the case with the resident and agree with the resident's findings and plans of care as documented above Patient seen and evaluated this AM. She has no acute complaints at this time and denies any dysuria, fevers or chills. CT abd/pelvis was done yesterday showing extrahepatic biliary tract dilatation; suspicion for UTI and small bowel ileus pattern. No evidence of abdominal/ pelvic abscess. Pt pending authorization for LTAC at this time. Patient can otherwise be discharged to LTAC once arranged
--- NOTE | 2025-02-05 22:24 | PD.IMPROG ---
Documentation for date of: 02/05/25 Subjective Subjective Interval history: Patient evaluated White count has gone up to 22.8 but hemoglobin hematocrit 10.7 and 33.3 andres taken of the incision and there is a dehiscence of the wound and drainage was established Exam Vital Signs Temp Pulse Resp BP Pulse Ox O2 Del Method O2 Flow Rate 97.2 F 106 H 18 115/83 97 Room Air 2 02/05/25 20:00 02/05/25 21:56 02/05/25 21:56 02/05/25 21:20 02/05/25 21:56 02/05/25 20:00 02/05/25 20:00 FiO2 30 02/05/25 20:00 Objective Labs 02/04/25 05:18 02/04/25 05:18 Impressions Impression: Leukocytosis possibility of a wound dehiscence Continue current management ABG Interpretation ABG results: 01/12/25 01/12/25 01/12/25 02:43 04:40 07:51 ABG pH 7.51 H 7.39 D 7.40 ABG pCO2 29 L 41 D 40 ABG pO2 235 H 145 H D 152 H ABG HCO3 23 25 25 ABG O2 Saturation 100 H 99 H 99 H ABG Base Excess 0 0 0 VBG pH VBG pCO2 VBG pO2 VBG Base Excess 01/13/25 01/15/25 04:17 11:51 ABG pH 7.32 L ABG pCO2 43 ABG pO2 137 H ABG HCO3 22 ABG O2 Saturation 99 H ABG Base Excess -4 L VBG pH 7.65 VBG pCO2 37 VBG pO2 75 H VBG Base Excess 18 H Assessment & Plan A&P Narrative relative leucocytosis in pt who had received steroids. Hospitalist team checks it daily, that does not make it a better test. if you want her on po rx at home. that is a choice. suggest po keflex 500 qid or 1000 tid and flagyl 500 tid x 5d more if you choose that rx she needs to take her IBD rx daily ordered cortisol level as she was on prednisone before I can not f/u her case as an outpt. please do not suggest that I see her. f/u with outpt primary. I will see again prn Time Spent With Patient Time: Total time spent is greater than 50% in coordination of care (as documented) at patient's floor/unit and/or counseling patient:
[2025-02-06] VITALS (8 sets, daily range): BP systolic 111–123; BP diastolic 70–81; PULSE 100–118; RESP 18–21; TEMP 36.2–37.2; O2SAT 97–99
[2025-02-06] MEDS: SODIUM CHLORIDE 0.9% 1000 ML 1,000 ML 75 ML IV (00:26)
[2025-02-06] MEDS: SIMETHICONE 80 MG CHEW PO ×3 (00:27→11:31)
[2025-02-06] MEDS: HYDROmorphone INJ 2 MG/ML VIAL 0.25 MG IVP ×4 (00:32→14:06)
[2025-02-06 00:47] LABS: Collection Type, Urine Clean Catch; Squamous Epithelial Cell,Urine 0 /hpf (0-5)
[2025-02-06 00:56] LABS: Bilirubin,Urine Negative (Negative); Blood,Urine Negative (Negative); Clarity,Urine Clear (Clear/Hazy); Color,Urine Lt-Yellow (Lt Yel-Yel); Glucose, Urine Negative (Negative); Ketones,Urine Trace (Negative); Leukocyte Esterase,Urine Negative (Negative); Nitrite,Urine Negative (Negative); PH,Urine 7.5 (5.0-7.0); Protein,Urine Negative (Neg - Trace); RBC,Urine 1 /hpf (0-3); Specific Gravity,Urine 1.014 (1.001-1.035); Urobilinogen,Urine Negative mg/dL (0.0-1.0); WBC,Urine 2 /hpf (0-5)
--- NOTE | 2025-02-06 05:16 | PC.NURSE ---
Pt. Refused vitals , Pt. wanted to rest . SKY Stephenson is aware
[2025-02-06 06:02] LABS: Basophils # (Auto) 0.1 Thou/mm3 (0.0-0.2); Basophils % (Auto) 0 % (0-2.5); Eosinophils # (Auto) 0.6 Thou/mm3 (0.0-0.5); Eosinophils % (Auto) 3 % (0-10); Hematocrit 29.9 % (36.0-46.0); Hemoglobin 9.4 g/dL (12.0-16.0); Immature Granulocytes % (Auto) 2 % (0-0); Immature Granulocytes Auto 0.44 Thou/mm3 (0.00-0.00); Lymphocytes # (Auto) 2.2 Thou/mm3 (1.0-4.8); Lymphocytes % (Auto) 12 % (10-50); Mean Corpuscular HGB Conc 31.4 g/dl (31.0-37.0); Mean Corpuscular Hemoglobin 29.9 pg (25.0-35.0); Mean Corpuscular Volume 95 fL (80-100); Monocytes % (Auto) 6 % (0-12); Neutrophils # (Auto) 14.3 Thou/mm3 (1.8-7.7); Neutrophils % (Auto) 77 % (37-80); Nucleated Red Blood Cell % 0 /100 WBC (0); Platelet Count 924 Thou/mm3 (140-440); Red Blood Count 3.14 Miln/mm3 (4.00-5.20); White Blood Count 18.5 Thou/mm3 (3.6-11.0)
[2025-02-06] MEDS: MIDODRINE 5 MG TABLET PO ×2 (06:12→14:06)
[2025-02-06 06:33] LABS: Alanine Aminotransferase 21 U/L (10-49); Albumin, Serum 3.1 gm/dL (3.4-4.8); Albumin/Globulin Ratio 1.3 (1.2-2.2); Alkaline Phosphatase 211 U/L (46-116); Anion Gap 7 (7-16); Aspartate Amino Transferase 22 U/L (0-34); BUN/Creatinine Ratio 17 Ratio (12-20); Bilirubin,Total 0.5 mg/dL (0.3-1.2); Blood Urea Nitrogen < 5 mg/dL (9-23); Calcium 8.6 mg/dL (8.3-10.6); Calcium (Corrected) 9.3 mg/dL (8.5-10.1); Carbon Dioxide 27.3 mMol/L (20.0-31.0); Chloride 102 mMol/L (98-107); Creatinine (Component) 0.3 mg/dL (0.6-1.3); Estimated Creatinine Clearance 148.6 mL/min (>60); Globulin 2.4 gm/dL (2.3-3.5); Glucose 92 mg/dL (74-106); Osmolality,Calculated 269 (275-295); Potassium 3.2 mMol/L (3.4-5.1); Sodium 136 mMol/L (136-145); Total Protein 5.5 gm/dL (5.7-8.2); eGFR > 60 See Note
[2025-02-06] MEDS: ZINC SULFATE 220 MG CAPSULE PO (08:28)
[2025-02-06] MEDS: POTASSIUM CHLORIDE 20 mEq TABCR 40 MEQ PO (08:28)
[2025-02-06] MEDS: ASCORBIC ACID 250 MG TABLET 500 MG PO (08:28)
--- NOTE | 2025-02-06 09:51 | PC.SS ---
Addendum entered by Stephanie Rodney 02/06/25 15:41: [facility] paid for ambulance transport and coordinated payment with [facility]. Updated family for confirmation of trip/time. Nursing aware. 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 now Original Note: Follow up note: SS received a call from [facility]. They state they have authorization and are ready for patient today. Accepting physician: Dr. Cardona Report# [phone] for a doctor to doctor handoff orange picker machine operator time: preferred by 3p.m. SS will send: d/c summary/orders/updated clinicals SS updated patient who is aware and agreeable. Updated physician and nursing
--- NOTE | 2025-02-06 10:39 | ESDS_ITS ---
<Statement entered by Karyna Recinos DO - 02/06/25 15:22> I, Karyna Recinos DO, attest that I was physically present for the johnson portions of the service and evaluated the patient with the resident and I reviewed and discussed the case with the resident and agree with the resident's findings and plans of care as documented above Patient is a 59-year-old female with past medical history of IBD and UC who was brought to the ED due to abdominal pain and discomfort on 01/11/2025. Patient had been recently discharged from the hospital on 12/21/2024 for flare of ulcerative colitis. She had also reported worsening weakness and loose stools green in color for about 3 weeks. Patient was referred to the ED for further evaluation by her GI specialists that morning of presentation as she had no bowel sounds and distention noted in the office. Patient's UC appeared to have worsened over the course of time due to discontinuation of her medications of her IBD 2 months prior to presentation. In the ED, CT abdomen pelvis was done showing a pneumoperitoneum with most severe droplets adjacent to stomach and diffuse nonspecific colitis. Patient was taken to the OR emergently for an ex lap/subtotal colectomy with en bloc partial small bowel resection due to multiple areas of large bowel perforation with feculent peritonitis as well as multiple areas of small bowel perforation and areas of coloenteric fistulous. Patient was subsequently admitted to the ICU for closer monitoring and remained on mechanical ventilation. Patient then was taken back to the OR on 12/1619 25 d uring which patient underwent an ex lap, small bowel anastomosis with end ileostomy, cholecystectomy and abdominal washout and closure. Patient had been on IV Zosyn on presentation and switched to Unasyn on 01/17 for 7 days postop. Patient was placed on bowel rest and on TPN. She was subsequently weaned off TPN and diet was advanced on 01/19/2025. Patient was downgraded on 01/27/2025 and had been on oral Augmentin. However, due to uptrending leukocytosis patient was started on vancomycin and Zosyn, as well as abdominal drainage. ID was also recalled, but felt that leukocytosis was likely reactive to steroids. Patient was otherwise afebrile. Hospitalization had been prolonged due to uncontrolled pain, poor p.o. intake and concern for wound dehiscence and drainage from abdominal wound. A CT abdomen pelvis was done on 02/04/2025 due to uptrending leukocytosis. CT abdomen pelvis showed extrahepatic biliary tract dilatation/suspicious for right urinary tract infection/small bowel ileus pattern/no abdominal or pelvic abscess noted. UA was done following CT abdomen pelvis and was bland. Patient also denied any dysuria. Due to need for frequent wound dressing changes and close monitoring, recommended patient to be transferred to an LTAC. Patient is stable for discharge at this time to LTAC. She has otherwise been afebrile. <Statement entered by Graciela Harris MD - 02/06/25 14:33> I discussed with and supervised the sales management intern physician who took care of this patient. I personally saw and examined the patient and discussed the assessment and plan with the entire medicine team, including my attending Dr. Recinos, I agree with most of the assessment and plan as documented below Graciela Harris M.D. PGY-2 Disclaimer: Despite multiple revisions, due to the dictation software being used, the document bellow may not be free of grammatical errors including phonetic/typographic errors. However, this does not deter from our commitment to providing health care in the patient's best interest in mind. Planned Discharge Date 02/06/25 DS: Providers Provider Date of admission: 01/11/25 21:31 Primary care physician: Marcia Bartlett([facility]), [facility] Admitting Provider: Tyrell Pang MD Attending Provider on Admission: Karyna Recinos DO Consults: 01/11/25 21:09 Consult to Gastroenterology Stat Comment: Pneumoperitoneum Consulting Provider: Haritha Gamboa Consult to General Surgery Stat Comment: Pneumoperitoneum Consulting Provider: Star Crooks 01/15/25 10:49 Referral Physical Therapy Stat Comment: Physician Instructions: 01/15/25 15:29 Consult to Infectious Diseases Routine Comment: Consulting Provider: Cezar Cash 01/16/25 17:52 Referral Registered Dietitian Routine Comment: Switch TPN to PPN please 01/18/25 09:59 Referral Wound Care Routine Comment: 01/20/25 18:14 Referral Physical Therapy Urgent Comment: Postoperative subtotal colectomy Physician Instructions: Instructions: Help ambulate the patient 01/28/25 02:14 Referral Wound Care Urgent Comment: OPEN SURGICAL WOUND, + DRAINAGE 01/29/25 11:34 Consult to Infectious Diseases Stat Comment: MICAFUNGIN Consulting Provider: Cezar Cash Attending Provider on DC: Karyna Recinos DO Discharging Provider: Ridge Hackett MD DS: Diagnosis Problem List Completed Was Problem List Reviewed/Reconciled?: Yes Hospital Course Hospital Course Hospital course: 59-year-old female with past medical history of inflammatory bowel disease/ulcerative colitis on chronic steroids that was recently discharged on 12/21/2024 for IBS flareup and admitted on 01/11 for pneumoperitoneum requiring emergent ex-lap. Found to have multiple areas of small and large bowel perforation with feculent peritonitis as well as coloenteric fistulas. Underwent subtotal colectomy on 01/11 and subsequently admitted to the ICU for further management. On 01/14 patient underwent small bowel anastomosis with a, cholecystectomy, and abdominal washout with closure. Patient started on clear liquid diet, advance as tolerated, downgraded to floors for further management. Patient spent significant amount time struggling with advancing diet due to poor appetite, difficulty participating physical therapy due to pain, difficulty weaning down IV pain medications. Patient had extended length of stay resulting in significant deconditioning. During stay patient had drainage from inferior aspect laparotomy incision, initially purulent and foul-smelling, transitioned to purulence. Infectious disease was consulted. Patient was thoroughly treated with IV antibiotics. Patient had a HIDA scan which ruled out a bile leak, small bowel follow-through imaging studies ruled out GI leak. CT imaging ruled out abscess formation. Due to significant deconditioning from prolonged length of stay, inability to wean off IV pain meds completely, poor appetite, and difficulty participating with physical therapy, it was determined via shared decision making that the patient would benefit from transfer to LTAC for long- term rehabilitation. Patient cleared for discharge as per surgery and ID teams. Patient medically cleared and stable for discharge. Discharge plan: You have been started on the following medications: -Dixon 7.5 1 tab every 6 hours as needed for moderate pain (4 tabs per day MAX) -Dilaudid 0.25 mg IV every 6 hours as needed for severe pain (1 mg/day MAX) -Midodrine 5 mg 3 times daily -Zinc sulfate capsule once daily -Simethicone 80 mg every 6 hours as needed for bloating Continue all other medications as previously prescribed Continue to advance her diet as can be tolerated. Continue participating in physical therapy. Return to the ED if you develop new or worsening symptoms, including: New fevers, increased drainage from wound. Diagnoses: #Acute abdomen 2/2 Severe Peritonitis - resolved #s/p subtotal colectomy with en-bloc partial small bowel resection #s/p Re-exploration, SB anastomosis, cholecystectomy and end ileostomy in the setting of #Inflammatory Bowel Disease #Ulcerative Colitis, fistulizing #Protein Calorie Malnutrition-improving #Hypokalemia - recurrent #Hypomagnesemia #Dyspnea- resolved #Cough- resolved #Reactive Leukocytosis-recurrent. #Normocytic anemia - resolved Plan of care discussed with senior resident Dr. Harris PGY?[address] Recinos. Ridge Hackett MD PGY?1 Time Spent with Patient Time attestation: Total time spent providing and/or coordinating discharge services: > 35min Exam Vital Signs Temp Pulse Resp BP Pulse Ox O2 Del Method O2 Flow Rate 98.9 F 111 H 18 111/81 99 Room Air 2 02/06/25 08:00 02/06/25 08:00 02/06/25 08:00 02/06/25 08:00 02/06/25 08:00 02/06/25 08:00 02/05/25 20:00 FiO2 30 02/05/25 20:00 Narrative Exam PE: Gen: Well-developed and well-nourished. HEENT: NCAT, PERRLA, EOMI, MMM, anicteric conjunctivae. CVS: normal S1 and S2. RRR. No M/R/G. Resp: CTA B/L. No rhonchi, rales, crackles or wheezing. Abd: soft, non-distended. Ileostomy functioning well. Patient tender to mild palpation. Incision site bandage, with some drainage at the inferior aspect. MSK: Good ROM in BUE & BLE. No edema or rash. Neuro: CN II-XII grossly intact. Strength 5/5 in BUE & BLE. Alert and oriented x3. Discharge Plan Plan Patient Disposition: Xfer Residential Acute Disposition Comment: [facility], [facility] Patient condition on transfer: Stable Care Plan Goals: You have been started on the following medications: -Dixon 7.5 1 tab every 6 hours as needed for moderate pain (4 tabs per day MAX) -Dilaudid 0.25 mg IV every 6 hours as needed for severe pain (1 mg/day MAX) -Midodrine 5 mg 3 times daily -Zinc sulfate capsule once daily -Simethicone 80 mg every 6 hours as needed for bloating Continue all other medications as previously prescribed Continue to advance her diet as can be tolerated. Continue participating in physical therapy. Return to the ED if you develop new or worsening symptoms, including: New fevers, increased drainage from wound. Wound care: 1) Shearing over coccyx: cleanse with wound cleanser, pat dry, apply skin prep and cover with allevyn dressing daily Side to side repositioning as tolerates 2) Midline surgical incision: dry dressing daily and PRN 3) Change ileostomy appliance every Wednesday and Wednesday and PRN for leaking. Prescriptions/Referrals Prescriptions/Med Rec: New acetaminophen 325 mg Tablet 650 mg PO Q6HR PRN (Reason: Fever >100.4 or pain 1-3) 1 Days Qty: 1 0RF ipratropium-albuterol 0.5 mg-3 mg(2.5 mg base)/3 mL Solution For Nebulization 3 ml INH Q4HRRT PRN (Reason: Shortness Of Breath Or Wheeze) 1 Days Qty: 1 0RF midodrine 5 mg Tablet 5 mg PO TID 1 Days Qty: 3 0RF hydromorphone 2 mg/mL Solution 0.25 mg IVP Q6H MDD 4 PRN (Reason: PAIN 7-10) 1 Days Qty: 1 0RF hydrocodone-acetaminophen 7.5-325 mg Tablet 1 tab PO Q6HR MDD 4 PRN (Reason: Pain Scale 4-6 (Moderate) 1 Days Qty: 1 0RF simethicone 80 mg Tablet,Chewable 80 mg PO Q6HR 1 Days Qty: 1 0RF dextrose 50 % in water (D50W) Syringe 50 ml IV Q15MIN PRN (Reason: BG <50 OR BG <70 & pt unresponsive) 1 Days Qty: 1 0RF zinc sulfate 50 mg zinc (220 mg) Capsule 220 mg PO QDAY 1 Days Qty: 5 0RF glucagon HCl 1 mg/mL Recon Soln 1 mg IM Q15MIN PRN (Reason: BG <70, and no IV access) 1 Days Qty: 1 0RF Continued ursodiol 250 MG tablet 250 mg PO TID Qty: 90 loperamide 2 mg Capsule 2 mg PO Q6H PRN (Reason: Diarrhea) prednisone 5 mg tablet 5 mg PO TID Patient Comments: TAKE 3 TABLETS BY MOUTH TWICE A DAY FOR 3 WEEKS ascorbic acid (vitamin C) [Vitamin C] 500 mg tablet 500 mg PO BID Patient Comments: TAKE 1 TABLET BY MOUTH TWICE A DAY ferrous sulfate 325 mg (65 mg iron) tablet 325 mg PO DAILY Patient Comments: TAKE 1 TABLET BY MOUTH TWICE A DAY folic acid 1 mg tablet 400 mcg PO QDAY Patient Comments: 400mcg mesalamine 500 mg capsule, extended release 500 mg PO QID Patient Comments: 500 mg QID Referrals: Alexey)Marcia PA-C [Primary Care Provider] - Patient/Caregiver Discharge Instructions Discharge Activity: activity as tolerated Education Materials: Abdominal Pain, Exploratory Laparotomy, Colitis Ulcerative Dc, Colitis Ulcerative Meds, Taking Opioid Medicines Print Language: Divehi Stand Alone Forms: Merary Award Info., Patient Portal Info Letter Discharge Order Discharge Orders: Discharge (Routine); Ordered 02/06/25 Ordered By: Ridge Hackett Quality Discharge Quality Measures VTE prophylaxis
[2025-02-06] MEDS: HYDROcodone/APAP 7.5/325 TABLET 1 TAB PO (16:05)
--- NOTE | 2025-02-06 23:11 | ESPR_ITS ---
Documentation for date of: 02/06/25 Subjective Subjective Interval history: Late entry for the note Case discussed with internal medicine team Okay to discharge I will follow the patient As an outpatient Exam Vital Signs Temp Pulse Resp BP Pulse Ox O2 Del Method O2 Flow Rate 98.0 F 100 20 120/70 97 Room Air 2 02/06/25 16:00 02/06/25 16:00 02/06/25 16:00 02/06/25 16:00 02/06/25 16:00 02/06/25 16:00 02/05/25 20:00 FiO2 30 02/05/25 20:00 Objective Labs 02/06/25 05:38 02/06/25 05:38 Labs: Laboratory Results - last 24 hr 02/06/25 02/06/25 00:15 05:38 WBC 18.5 H RBC 3.14 L Hgb 9.4 L Hct 29.9 L MCV 95 MCH 29.9 MCHC 31.4 RDW Std Deviation 60.0 H Plt Count 924 H D Neut % (Auto) 77 Lymph % (Auto) 12 [place] % (Auto) 6 Eos % (Auto) 3 Baso % (Auto) 0 Neut # (Auto) 14.3 H Lymph # (Auto) 2.2 [place] # (Auto) 1.0 H Eos # (Auto) 0.6 H Baso # (Auto) 0.1 Immature Gran # (Auto) 0.44 H Absolute Nucleated RBC 0.00 Immature Gran % 2 H Nucleated RBC % 0 Sodium 136 Potassium 3.2 L D Chloride 102 Carbon Dioxide 27.3 Anion Gap 7 BUN < 5 L Creatinine 0.3 L Estim Creat Clear Calc 148.6 eGFR > 60 BUN/Creatinine Ratio 17 Glucose 92 Calculated Osmolality 269 L Calcium 8.6 Corrected Calcium 9.3 Total Bilirubin 0.5 AST 22 ALT 21 Alkaline Phosphatase 211 H D Total Protein 5.5 L Albumin 3.1 L Globulin 2.4 Albumin/Globulin Ratio 1.3 Ur Collection Type Clean Catch Urine Color Lt-Yellow Urine Clarity Clear Urine pH 7.5 H Ur Specific [place] 1.014 Urine Protein Negative Urine Glucose (UA) Negative Urine Ketones Trace Urine Blood Negative Urine Nitrite Negative Urine Bilirubin Negative Urine Urobilinogen (Auto) Negative Ur Leukocyte Esterase Negative Urine RBC 1 Urine WBC 2 Ur Squamous Epith Cells 0 Urine Bacteria None Impressions Impression: Inflammatory bowel disease Crohn's ileitis status post subtotal colectomy end ileostomy and en bloc resection of the small bowel Outpatient follow-up ABG Interpretation ABG results: 01/12/25 01/12/25 01/12/25 02:43 04:40 07:51 ABG pH 7.51 H 7.39 D 7.40 ABG pCO2 29 L 41 D 40 ABG pO2 235 H 145 H D 152 H ABG HCO3 23 25 25 ABG O2 Saturation 100 H 99 H 99 H ABG Base Excess 0 0 0 VBG pH VBG pCO2 VBG pO2 VBG Base Excess 01/13/25 01/15/25 04:17 11:51 ABG pH 7.32 L ABG pCO2 43 ABG pO2 137 H ABG HCO3 22 ABG O2 Saturation 99 H ABG Base Excess -4 L VBG pH 7.65 VBG pCO2 37 VBG pO2 75 H VBG Base Excess 18 H Assessment & Plan A&P Narrative relative leucocytosis in pt who had received steroids. Hospitalist team checks it daily, that does not make it a better test. if you want her on po rx at home. that is a choice. suggest po keflex 500 qid or 1000 tid and flagyl 500 tid x 5d more if you choose that rx she needs to take her IBD rx daily ordered cortisol level as she was on prednisone before I can not f/u her case as an outpt. please do not suggest that I see her. f/u with outpt primary. I will see again prn Time Spent With Patient Time: Total time spent is greater than 50% in coordination of care (as documented) at patient's floor/unit and/or counseling patient:
[2025-02-08 06:49] LABS: Cortisol,total,LC/MS/MS* 14.2 mcg/dL
== END 2025-02-06 16:19 | DRG 329 ==
LOC: SERX 21:18 → SERHOLD 21:47 → S2SX 01-12 00:52 → S2NX 01-16 09:41 → S3NX 02-01 06:29
PROVIDERS: Anesthesiology; Internal Medicine; Internal Medicine Infectious Disease; Nurse Practitioner Family; Specialist; Student in an Organized Health Care Education/Training Program; Surgery; Admitting Provider Internal Medicine; Emergency Provider Emergency Medicine; PCP Nurse Practitioner Family; Visit Provider Internal Medicine
PROC: (CPT 49000; principal; 2025-01-11 22:00)
PROC: 0FT40ZZ Resection of Gallbladder, Open Approach (ICD-10-PCS; CPT 49000; principal; 2025-01-14 10:00)
DX: K63.1 Perforation of intestine (nontraumatic) (principal); J18.9 Pneumonia, unspecified organism; K65.8 Other peritonitis; J69.0 Pneumonitis due to inhalation of food and vomit; R57.8 Other shock; K50.012 Crohn's disease of small intestine with intestinal obstruction; E87.1 Hypo-osmolality and hyponatremia; E46 Unspecified protein-calorie malnutrition; E87.4 Mixed disorder of acid-base balance; T81.30XA Disruption of wound, unspecified, initial encounter; K63.2 Fistula of intestine; K80.70 Calculus of gallbladder and bile duct without cholecystitis without obstruction; E87.6 Hypokalemia; E83.42 Hypomagnesemia; D64.9 Anemia, unspecified; E86.0 Dehydration; R10.0 Acute abdomen; E77.8 Other disorders of glycoprotein metabolism; E83.39 Other disorders of phosphorus metabolism; E86.1 Hypovolemia; E87.8 Other disorders of electrolyte and fluid balance, not elsewhere classified; E88.09 Other disorders of plasma-protein metabolism, not elsewhere classified; R13.10 Dysphagia, unspecified; Z53.20 Procedure and treatment not carried out because of patient's decision for unspecified reasons; Z78.1 Physical restraint status; Z79.899 Other long term (current) drug therapy; Z87.891 Personal history of nicotine dependence; Z79.52 Long term (current) use of systemic steroids; T38.0X5A Adverse effect of glucocorticoids and synthetic analogues, initial encounter; Z68.20 Body mass index [BMI] 20.0-20.9, adult
CPT/HCPCS: 36415; 36600; 71045; 74018; 74177; 74250; 78227; 80048; 80053; 80069; 80076; 80202; 81001; 82533; 82728; 82803; 83036; 83540; 83550; 83605; 83735; 84100; 84132; 84145; 84443; 84478; 85025; 85610; 85730; 86850; 86900; 86901; 86923; 86927; 87040; 87070; 87077; 87081; 87086; 87186; 87205; 87811; 93005; 93225; 94002; 94003; 94640; 94664; 94667; 96360; 97162; 99285; A4217; A4649; A4699; A9270; A9537; J0131; J0295; J0613; J0694; J0696; J1100; J1120; J1450; J1643; J1650; J1720; J1756; J1815; J1940; J2060; J2247; J2250; J2371; J2470; J2543; J2598; J2704; J2710; J2919; J3010; J3370; J3371; J3411; J3475; J3480; J3490; J7030; J7040; J7050; J7120; J7999; P9016; P9045; P9047; P9060; Q9967; J1596; J1805; J1836